=== PATIENT | male | born 1940 | race Caucasian/White ===

== ENCOUNTER 2017-12-15 05:57 | Inpatient (IN) | payer MEDICARE, OTHER ==
[2017-12-15 05:58] VITALS: BMI 26.6
--- NOTE | 2017-12-15 07:29 | ED PDOC ---
Arrival/HPI - General Chief Complaint: Shortness Of Breath Time Seen by Provider: 12/15/17 07:02 Historian: Patient - History of Present Illness Narrative History of Present Illness (Text): 12/15/17 07:18 A 76 year old male, whose past medical history includes GI bleeding, duodenal ulcer, Lung CA, presents to the emergency department complaining of 2-3 day duration shortness of breath. The patient reports that he feels difficultly with exhaling, stating that he feels like he does not exhale completely. He reports a productive cough with yellow phlegm. He states that he was recently discharged from the hospital. The patient notes that he is a past smoker. The patient denies fevers, chills, headache, dizziness, sore throat, chest pain, dyspnea on exertion, abdominal pain, nausea, vomiting, diarrhea, neck/back pain , urinary/bowel changes or any other complaint. Oncologist: Dr. Menjiavr GI: Dr. Lee Mobile Lounge Driver: Dr. Yi Time/Duration: Other (2-3 Days) Symptom Onset: Sudden Symptom Course: Unchanged Activities at Onset: Rest, Light Context: Home Past Medical History - Provider Review Nursing Documentation Reviewed: Yes - Infectious Disease Hx of Infectious Diseases: None - Tetanus Immunization Tetanus Immunization: Unknown - Past Medical History Past Medical History: No Previous - Pulmonary Hx Lung Cancer: Yes (on chemotherapy) - HEENT Hx HEENT Disorder: Yes (wears eyeglasses) - Hematological/Oncological Hx Blood Transfusions: Yes Hx Blood Transfusion Reaction: No - Musculoskeletal/Rheumatological Hx Falls: No - Psychiatric Hx Substance Use: No - Past Surgical History Past Surgical History: No Previous - Surgical History Hx Vascular Access Device: Yes (R chest port) - Anesthesia Hx Anesthesia: No Hx Anesthesia Reactions: No Hx Malignant Hyperthermia: No - Suicidal Assessment Feels Threatened In Home Enviroment: No Family/Social History - Physician Review Nursing Documentation Reviewed: Yes Family/Social History: No Known Family HX Smoking Status: Light Smoker < 10 Cigarettes Daily Hx Alcohol Use: No Hx Substance Use: No Hx Substance Use Treatment: No Allergies/Home Meds Allergies/Adverse Reactions: Allergies No Known Allergies Allergy (Verified 12/15/17 06:06) Home Medications: Home Meds Medication Instructions Recorded Confirmed Apixaban [Eliquis] 5 mg PO BID 12/15/17 12/15/17 Levalbuterol Tartrate [Xopenex Hfa] 15 gm IH PRN PRN MDD 2 puffs 12/15/17 Megestrol [Megace] 200 mg PO DAILY 12/15/17 12/15/17 Pantoprazole Sodium [Protonix] 40 mg PO DAILY 12/15/17 12/15/17 Polyethylene Glycol 3350 [Miralax] 17 gm PO PRN PRN 12/15/17 12/15/17 RX: Benzonatate [Tessalon Perle] 100 mg PO PRN PRN 12/15/17 12/15/17 RX: oxyCODONE [oxyCODONE Immediate 5 mg PO PRN PRN 12/15/17 12/15/17 Release Tab] Review of Systems - Physician Review All systems were reviewed & negative as marked: Yes - Review of Systems Constitutional: absent: Fevers Respiratory: SOB, Cough, Sputum (Yellow) Cardiovascular: absent: Chest Pain, CAMARENA Gastrointestinal: absent: Abdominal Pain, Stool Changes, Diarrhea, Nausea, Vomiting Genitourinary Male: absent: Urinary Output Changes Musculoskeletal: absent: Back Pain, Neck Pain Neurological: absent: Headache, Dizziness Physical Exam Vital Signs Reviewed: Yes Vital Signs Temp Pulse Resp BP Pulse Ox 12/15/17 10:52 70 19 100 12/15/17 10:48 98.0 F 71 18 114/78 100 12/15/17 09:27 69 18 99 12/15/17 06:14 97.8 F 72 18 113/69 99 Temperature: Afebrile Blood Pressure: Normal Pulse: Regular Respiratory Rate: Normal Appearance: Positive for: Non-Toxic, Comfortable, Cachectic Pain Distress: None Mental Status: Positive for: Alert and Oriented X 3 - Systems Exam Head: Present: Atraumatic, Normocephalic Pupils: Present: PERRL Extroacular Muscles: Present: EOMI Conjunctiva: Present: Normal Mouth: Present: Moist Mucous Membranes Neck: Present: Normal Range of Motion Respiratory/Chest: Present: Clear to Auscultation, Good Air Exchange, Other ( Healed sternotomy scar on chest. Labored breathing. ). No: Respiratory Distress , Accessory Muscle Use, Wheezes, Retracting, Rhonchi Cardiovascular: Present: Regular Rate and Rhythm, Normal S1, S2. No: Murmurs Abdomen: No: Tenderness, Distention, Peritoneal Signs Back: Present: Normal Inspection Upper Extremity: Present: Normal Inspection. No: Cyanosis, Edema Lower Extremity: Present: Normal Inspection. No: Edema Neurological: Present: GCS=15, CN II-XII Intact, Speech Normal Skin: Present: Warm, Dry, Normal Color. No: Rashes Psychiatric: Present: Alert, Oriented x 3, Normal Insight, Normal Concentration Medical Decision Making ED Course and Treatment: 12/15/17 07:30 Impression: A 76 year old male presents to the emergency department with a complaint of 2-3 day duration shortness of breath. Differential Diagnosis included but are not limited to: PNA Bronchitis PE Ulcer Constipation Plan: -- EKG -- Chest X-ray -- Labs -- Urinalysis -- Reassess and disposition Prior Visits: Notes and results from previous visits were reviewed. Progress Notes: 12/15/17 08:01 Patient states that he was admitted and recently discharged from the hospital. Upon review of chart, unable to find recent admission(last documented admission in 2014). Will interrogate patient once he returns back from X- Ray. 12/15/17 08:26: Labs reviewed. Patient noted to have leukocytosis to 14 with RUL infiltrate seen on Chest X-ray. Will obtain Chest/ Abdomen/ Pelvis CT. Antibiotics ordered. 12/15/17 09:24: Case discussed in detail with Dr. Christianson(internal medicine), covering for Dr. Triana who accepts patient to his service. Will admit patient for coming in with community acquired pneumonia onto Telemetry. - Lab Interpretations Lab Results: 12/15/17 07:20 12/15/17 07:20 Lab Results 12/15/17 07:20: Sodium 132, Potassium 4.5, Chloride 96 L, Carbon Dioxide 26, Anion Gap 15, BUN 19, Creatinine 0.7 L, Est GFR ( Amer) > 60, Est GFR ( Non-Af Amer) > 60, Random Glucose 118 H, Calcium 9.0, Total Bilirubin 0.3, AST 65 H, ALT 76 H, Alkaline Phosphatase 161 H, Total Protein 6.8, Albumin 3.3, Globulin 3.5, Albumin/Globulin Ratio 1.0 L 12/15/17 07:20: Troponin I < 0.01 D, NT-Pro-B Natriuret Pep 288 12/15/17 07:20: WBC 14.1 H D, RBC 4.10, Hgb 12.0 L, Hct 34.3 L, MCV 83.7, MCH 29.3, MCHC 35.0, RDW 15.2 H, Plt Count 469 H, MPV 9.6, Gran % 75.9 H, Lymph % ( Auto) 13.7 L, [place] % (Auto) 9.3 H, Eos % (Auto) 0.2 L, Baso % (Auto) 0.9, Gran # 10.68 H, Lymph # (Auto) 1.9, [place] # (Auto) 1.3 H, Eos # (Auto) 0.0, Baso # ( Auto) 0.13 I have reviewed the lab results: Yes - RAD Interpretation Narrative RAD Interpretations (Text): Chest X-ray Dictator : Rudy Yuen MD Report Date : 12/15/2017 09:12:03 IMPRESSION: Interstitial infiltrate in the right lung Radiology Orders: 12/15/17 07:14 CHEST TWO VIEWS (PA/LAT) [RAD] Stat - EKG Interpretation EKG Interpretation (Text): 12/15/17 10:41 EKG: Ordered, reviewed, and independently interpreted the EKG. Rate : 70 BPM Rhythm : NSR Interpretation : No T wave inversions. No ST elevations. Interpreted by ED Physician: Yes Type: 12 lead EKG - Medication Orders Current Medication Orders: Apixaban (Eliquis) 5 mg PO BID ZARI PRN Reason: Protocol Benzonatate (Tessalon Perles) 100 mg PO TID ZARI Cefepime HCl (Maxipime 2gm) 2 gm in 100 mls @ 100 mls/hr IVPB Q12 ZARI PRN Reason: Protocol Stop: 12/20/17 22:01 Vancomycin HCl (Vancomycin 1gm) 1 gm in 250 mls @ 167 mls/hr IVPB Q12H ZARI PRN Reason: Protocol Non-Formulary Medication (Megestrol [Megace]) 200 mg PO DAILY ZARI Oxycodone HCl (Oxycodone Immediate Release Tab) 5 mg PO Q6H PRN PRN Reason: Pain, severe (8-10) Pantoprazole Sodium (Protonix Ec Tab) 40 mg PO DAILY ZARI Polyethylene Glycol (Miralax) 17 gm PO DAILY PRN PRN Reason: Constipation Discontinued Medications Al Hydrox/Mg Hydrox/Simethicone (Maalox Plus 30 Ml) 30 ml PO STAT STA Stop: 12/15/17 10:50 Last Admin: 12/15/17 10:56 Dose: 30 ml Albuterol/Ipratropium (Duoneb 3 Mg/0.5 Mg (3 Ml) Ud) 3 ml IH STAT STA Stop: 12/15/17 07:41 Last Admin: 12/15/17 08:04 Dose: 3 ml Famotidine (Pepcid) 20 mg IVP STAT STA Stop: 12/15/17 10:50 Last Admin: 12/15/17 10:56 Dose: 20 mg IVP Administration Document 12/15/17 10:56 [email or web address] (Rec: 12/15/17 10:56 [email or web address] [id number]) Charges for Administration # of IVP Administrations 1 Ceftriaxone Sodium (Rocephin 1 Gram Ivpb) 1 gm in 100 mls @ 100 mls/hr IVPB DAILY ZARI PRN Reason: Protocol Ceftriaxone Sodium (Rocephin 1 Gram Ivpb) 1 gm in 100 mls @ 100 mls/hr IVPB STAT STA PRN Reason: Protocol Stop: 12/15/17 09:26 Last Admin: 12/15/17 08:44 Dose: 100 mls/hr eMAR Start Stop Document 12/15/17 08:44 [email or web address] (Rec: 12/15/17 08:44 [email or web address] [id number]) Intravenous Solution Start Date 12/15/17 Start Time 08:44 Azithromycin (Zithromax 500mg In Ns) 500 mg in 250 mls @ 167 mls/hr IVPB STAT STA PRN Reason: Protocol Stop: 12/15/17 09:58 Last Admin: 12/15/17 10:10 Dose: 167 mls/hr eMAR Start Stop Document 12/15/17 10:10 [email or web address] (Rec: 12/15/17 10:11 [email or web address] [id number]) Intravenous Solution Start Date 12/15/17 Start Time 10:11 Prednisone (Prednisone Tab) 40 mg PO STAT STA Stop: 12/15/17 07:42 Last Admin: 12/15/17 08:00 Dose: 40 mg - Scribe Statement The provider has reviewed the documentation as recorded by the Helen Reeder Provider Scribe Attestation: All medical record entries made by the Scribe were at my direction and personally dictated by me. I have reviewed the chart and agree that the record accurately reflects my personal performance of the history, physical exam, medical decision making, and the department course for this patient. I have also personally directed, reviewed, and agree with the discharge instructions and disposition. Disposition/Present on Arrival - Present on Arrival Any Indicators Present on Arrival: No History of DVT/PE: No History of Uncontrolled Diabetes: No Urinary Catheter: No History of Decub. Ulcer: No History Surgical Site Infection Following: None - Disposition Have Diagnosis and Disposition been Completed?: Yes Diagnosis: Pneumonia Disposition: HOSPITALIZED Disposition Time: 08:35 Patient Plan: Admission Condition: STABLE
[2017-12-15 07:30] LABS: BASO # 0.13 K/mm3 (0.0-2.0); BASO % 0.9 % (0.0-3.0); EOS % 0.2 % (1.5-5.0); GRAN # 10.68 (1.4-6.5); GRAN % 75.9 % (50.0-68.0); LYMPH # 1.9 (1.2-3.4); LYMPH % 13.7 % (22.0-35.0); MEAN CELL VOLUME 83.7 fl (80.0-105.0); MEAN CORPUSCULAR HEMOGLOBIN 29.3 pg (25.0-35.0); MEAN PLATELET VOLUME 9.6 fl (7.0-11.0); MONO # 1.3 (0.1-0.6); MONO % 9.3 % (1.0-6.0); RBC 4.1 10^6/uL (3.5-6.1); RED CELL DISTRIBUTION WIDTH 15.2 % (11.5-14.5); WHITE BLOOD COUNT 14.1 10^3/ul (4.5-11.0)
[2017-12-15] MEDS ORDERED: Albuterol-Ipratrop 3 mg / 0.5 (3 ml) UD IH STA (07:40)
[2017-12-15 07:51] LABS: B-TYPE NATRIURETIC PEPTIDE 288 pg/mL (0-450); TROPONIN I < 0.01 ng/mL
[2017-12-15] MEDS ORDERED: cefTRIAXone 1 gm 1 GM/100 ML BAG IVPB STA (08:28)
[2017-12-15] MEDS ORDERED: Azithromycin 500MG/NS 250ml 500 MG/250 ML BAG IVPB STA (08:29)
--- NOTE | 2017-12-15 09:13 | RAD ---
Date of service: 12/15/2017 HISTORY: sob COMPARISON: 05/17/2014 TECHNIQUE: Chest PA and lateral FINDINGS: LUNGS: Interstitial infiltrate in the right lung PLEURA: No significant pleural effusion identified. No pneumothorax apparent. CARDIOVASCULAR: Normal. OSSEOUS STRUCTURES: No significant abnormalities. VISUALIZED UPPER ABDOMEN: Normal. OTHER FINDINGS: Right-sided Port-A-Cath IMPRESSION: Interstitial infiltrate in the right lung
[2017-12-15 09:57] LABS: ALBUMIN 3.3 g/dL (3.0-4.8); ALT/SGPT 76 U/L (7-56); AST/SGOT 65 U/L (17-59); BLOOD UREA NITROGEN 19 mg/dL (7-21); GFR NON-AFRICAN AMERICAN > 60
[2017-12-15] MEDS ORDERED: Azithromycin 500MG/NS 250ml 500 MG/250 ML BAG IVPB SCH (10:00)
[2017-12-15] MEDS ORDERED: cefTRIAXone 1 gm 1 GM/100 ML BAG IVPB SCH (10:00)
[2017-12-15 10:10] LABS: URINE BILIRUBIN NEGATIVE (NEGATIVE); URINE BLOOD NEGATIVE (NEGATIVE); URINE GLUCOSE (UA) NEGATIVE (NEGATIVE); URINE LEUKOCYTE ESTERASE NEGATIVE Leu/uL (NEGATIVE); URINE PROTEIN NEGATIVE mg/dL (<30 mg/dL); URINE UROBILINOGEN 0.2 E.U./dL (<1 E.U./dL)
[2017-12-15 10:11] LABS: URINE APPEARANCE CLEAR (CLEAR); URINE COLOR YELLOW (YELLOW)
--- NOTE | 2017-12-15 10:35 | CP.PCM.HP ---
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 Patient states he has been bringing up yellow sputum. Patient admits to difficulty breathing intermittently. Patient also states that he has had intermittent abdominal pain. Patient has recently undergone chemotherapy and radiation with Dr. Bullard and Dr. Lee. The patient was recently in the hospital for post-obstructive pneumonia. Patient currently denies chest pain, nausea, vomiting, diarrhea, fever, chills. PMH: GI ulcer, Small Cell Lung CA, A-fib PSH: CT Guided Biopsy FH: Heart disease Social Hx: Former smoker, denies alcohol or illicit drug use Home meds: none Allergies: NKDA Present on Admission - Present on Admission Any Indicators Present on Admission: No Review of Systems - Review of Systems Review of Systems: 12 point ROS as per HPI, otherwise negative Past Patient History - Infectious Disease Hx of Infectious Diseases: None - Tetanus Immunizations Tetanus Immunization: Unknown - Past Social History Smoking Status: Light Smoker < 10 Cigarettes Daily - PULMONARY Hx Lung Cancer: Yes (on chemotherapy) - HEENT Hx HEENT Problems: Yes (wears eyeglasses) - HEMATOLOGICAL/ONCOLOGICAL Hx Blood Transfusions: Yes Hx Blood Transfusion Reaction: No - MUSCULOSKELETAL/RHEUMATOLOGICAL Hx Falls: No - PSYCHIATRIC Hx Substance Use: No - SURGICAL HISTORY Hx Vascular Access Device: Yes (R chest port) - ANESTHESIA Hx Anesthesia: No Hx Anesthesia Reactions: No Hx Malignant Hyperthermia: No Meds Allergies/Adverse Reactions: Allergies Allergy/AdvReac Type Severity Reaction Status Date / Time No Known Allergies Allergy Verified 12/15/17 06:06 Physical Exam - Constitutional Appears: Non-toxic, No Acute Distress - Head Exam Head Exam: ATRAUMATIC, NORMAL INSPECTION, NORMOCEPHALIC - Eye Exam Eye Exam: EOMI, Normal appearance - ENT Exam ENT Exam: Mucous Membranes Dry - Respiratory Exam Respiratory Exam: Decreased Breath Sounds (On right side), NORMAL BREATHING PATTERN. absent: Rales, Rhonchi, Wheezes - Cardiovascular Exam Cardiovascular Exam: RRR, +S1, +S2 - GI/Abdominal Exam GI & Abdominal Exam: Normal Bowel Sounds, Soft. absent: Tenderness - Extremities Exam Extremities exam: Positive for: normal inspection. Negative for: calf tenderness, pedal edema - Neurological Exam Neurological exam: Alert, CN II-XII Intact, Oriented x3 - Psychiatric Exam Psychiatric exam: Normal Affect, Normal Mood - Skin Skin Exam: Intact, Normal Color, Warm Results - Vital Signs Recent Vital Signs: Last Vital Signs Temp 97.8 F 12/15/17 06:14 Pulse 69 12/15/17 09:27 Resp 18 12/15/17 09:27 BP 113/69 12/15/17 06:14 Pulse Ox 99 12/15/17 09:27 - Labs Result Diagrams: 12/15/17 07:20 12/15/17 07:20 Labs: Laboratory Results - last 24 hr 12/15/17 12/15/17 12/15/17 07:20 07:20 07:20 WBC 14.1 H D RBC 4.10 Hgb 12.0 L Hct 34.3 L MCV 83.7 MCH 29.3 MCHC 35.0 RDW 15.2 H Plt Count 469 H MPV 9.6 Gran % 75.9 H Lymph % (Auto) 13.7 L [place] % (Auto) 9.3 H Eos % (Auto) 0.2 L Baso % (Auto) 0.9 Gran # 10.68 H Lymph # (Auto) 1.9 [place] # (Auto) 1.3 H Eos # (Auto) 0.0 Baso # (Auto) 0.13 Sodium 132 Potassium 4.5 Chloride 96 L Carbon Dioxide 26 Anion Gap 15 BUN 19 Creatinine 0.7 L Est GFR ( Amer) > 60 Est GFR (Non-Af Amer) > 60 Random Glucose 118 H Calcium 9.0 Total Bilirubin 0.3 AST 65 H ALT 76 H Alkaline Phosphatase 161 H Troponin I < 0.01 D NT-Pro-B Natriuret Pep 288 Total Protein 6.8 Albumin 3.3 Globulin 3.5 Albumin/Globulin Ratio 1.0 L Urine Color Urine Appearance Urine pH Ur Specific [place] Urine Protein Urine Glucose (UA) Urine Ketones Urine Blood Urine Nitrate Urine Bilirubin Urine Urobilinogen Ur Leukocyte Esterase 12/15/17 09:50 WBC RBC Hgb Hct MCV MCH MCHC RDW Plt Count MPV Gran % Lymph % (Auto) [place] % (Auto) Eos % (Auto) Baso % (Auto) Gran # Lymph # (Auto) [place] # (Auto) Eos # (Auto) Baso # (Auto) Sodium Potassium Chloride Carbon Dioxide Anion Gap BUN Creatinine Est GFR ( Amer) Est GFR (Non-Af Amer) Random Glucose Calcium Total Bilirubin AST ALT Alkaline Phosphatase Troponin I NT-Pro-B Natriuret Pep Total Protein Albumin Globulin Albumin/Globulin Ratio Urine Color Yellow Urine Appearance Clear Urine pH 8.0 Ur Specific [place] 1.010 Urine Protein Negative Urine Glucose (UA) Negative Urine Ketones Negative Urine Blood Negative Urine Nitrate Negative Urine Bilirubin Negative Urine Urobilinogen 0.2 Ur Leukocyte Esterase Negative Assessment & Plan - Assessment and Plan (Free Text) Plan: 1. HCAP 2. Small cell lung cancer stage IV 3. A-fib 4. Transaminitis Patient will be admitted to the hospital for HCAP. Patient was recently admitted for similar symptoms recently. Patient received antibiotics in the ED. Will order procalcitonin and will start patient on empiric antibiotics. Will obtain chest, abdomen, pelvis CT. Patient with history of a-fib and will continue Eliquis. We will consult ID, Pulmonology, and Oncology for further recommendations. Will continue to monitor patient closely and continue current medical regimen. Diane, PGY-3
--- NOTE | 2017-12-15 10:41 | CT ---
Date of service: 12/15/2017 PROCEDURE: CT Chest, Abdomen and Pelvis without intravenous contrast HISTORY: Pneumonia, Hx of lung CA COMPARISON: None available. TECHNIQUE: Radiation dose: Total exam DLP = mGy-cm. This CT exam was performed using one or more of the following dose reduction techniques: Automated exposure control, adjustment of the mA and/or kV according to patient size, and/or use of iterative reconstruction technique. FINDINGS: CT CHEST WITHOUT CONTRAST: LUNGS: Severe centrilobular emphysema with a large right mid lung zone infiltrate involving the lateral segment of right middle lobe and the right lower lobe with air bronchograms. MEDIASTINUM: Right paratracheal, subcarinal and right hilar lymphadenopathy. Pacemaker and leads in place. LYMPH NODES: Unremarkable. PLEURA: Unremarkable. No pneumothorax. No pleural fluid. BONES: Unremarkable. OTHER FINDINGS: None. CT ABDOMEN AND PELVIS: LIVER: Unremarkable. No gross lesion or ductal dilatation. GALLBLADDER AND BILE DUCTS: Cholelithiasis. . PANCREAS: Unremarkable. No gross lesion or ductal dilatation. SPLEEN: Unremarkable. ADRENALS: Unremarkable. No mass. KIDNEYS AND URETERS: Bilateral renal cysts with bilateral nephrolithiasis. VASCULATURE: Unremarkable. No aortic aneurysm. BOWEL: Unremarkable. No obstruction. No gross mural thickening. APPENDIX: Normal appendix. PERITONEUM: Unremarkable. No free fluid. No free air. LYMPH NODES: Unremarkable. No enlarged lymph nodes. BLADDER: Unremarkable. REPRODUCTIVE: Unremarkable. BONES: Numerous sclerotic lesions cyst with metastatic disease. Moderate L4 compression fracture. OTHER FINDINGS: Left inguinal hernia containing colonic loops. No obstruction. IMPRESSION: Confluent consolidation/ infiltrate in the right midlung zone involving the right middle lobe and right lower lobe with extensive mediastinal lymphadenopathy. Skeletal metastases.
[2017-12-15] MEDS ORDERED: Alum-Mag Hydrox-Simethicone Susp (30 mL) PO STA (10:49)
[2017-12-15] MEDS ORDERED: POLYETHYLENE GLYCOL 3350 17 GM/Dose PACKET PO PRN (11:01)
[2017-12-15] MEDS ORDERED: Pantoprazole 40 mg EC Tab PO SCH (11:15)
--- NOTE | 2017-12-15 11:52 | CARD ---
APPROVED REPORT Date of service: 12/15/2017 EKG Measurement Heart [id number] <Conclusion> Normal sinus rhythm Normal ECG
[2017-12-15] MEDS: Vancomycin 1gm in NS 250ml 1 GM/250 ML BAG IVPB SCH ×2 (12:41→22:39)
[2017-12-15] MEDS ORDERED: Cefepime 1gm in NS 100ml 1 GM/100 ML BAG IVPB SCH (22:00)
[2017-12-15] MEDS ORDERED: Cefepime IV 2 gm in NS 2 GM/100 ML BAG IVPB SCH (22:00)
[2017-12-15] MEDS: guaiFENesin DM 100 mg-10 mg/5 ml UD PO PRN (22:37)
[2017-12-15] MEDS: oxyCODONE 5 mg Immediate Release Tab PO PRN (22:37)
[2017-12-15] MEDS: MethylPREDNISolone 40 mg Vial IVP SCH (22:39)
[2017-12-15] MEDS: Cefepime 1gm in NS 100ml 1 GM/100 ML BAG IVPB SCH (22:41)
--- NOTE | 2017-12-15 22:42 | CON ---
Copied To: Erasmo Briggs MD Attending MD: Erasmo Briggs MD DATE: 12/15/2017 SUBJECTIVE: It should be noted that the patient has 2 separate ID numbers as the patient was recently discharged from [facility], [place] 2 weeks prior with the information not appearing from his prior admission, which was for over 2 weeks' time. His birthday being 1940, he has a medical record number of [id number] from 11/23/2017 discharge and a medical record number now of [id number] from today's admission date of 12/15/2017. One is referred to the select visit's rhodes on the computer screen and to go back to his visits from 11/23/2017 to see his significant hospitalization from 11/08/2017 through his discharge at that time. CHIEF COMPLAINT: Shortness of breath. HISTORY OF PRESENT ILLNESS: The patient is a 76-year-old male, now admitted by the emergency room for increasing shortness of breath for the past 2 days' time as the patient was seen here in the office 2 days prior and was in no acute distress with significant improvement of his peripheral edema with his cough also gone with weakness as his only complaint that day. At present, the patient is now seen resting on the telemetry floor to be transferred to remote telemetry being seen with Dr. Yi, pulmonology with the patient reporting that his shortness of breath is his main complaint. On testing, it appears the patient has a newly-developed pneumonia, which will be treated as indicated. PAST MEDICAL HISTORY: The patient's past medical history is significant for stage IV metastatic lung cancer, small cell with lytic lesions at T7 of the vertebral body, liver metastasis, extensive mediastinal hilar adenopathy, status post 10 radiation treatments with chemotherapy also being given. Now, scheduled for next week chemotherapy to continue as per Dr. Bullard's recommendations. 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 The patient also has episode of atrial fibrillation, which he was treated with sotalol; history of pneumothorax; COPD; cachexia of malignancy; recent insomnia; recent pedal edema; gastric ulcer; gastritis; neutropenia; cough, which is now improved; failure to thrive, on Megace with Eliquis started for his cardiac dysrhythmia. ALLERGIES: NO KNOWN ALLERGIES. MEDICATIONS: The patient's medications at this point include sotalol, DuoNeb, Eliquis. He was given cefepime, which continues; Megace; MiraLax; oxycodone; prednisone orally, which was discontinued in favor of Solu-Medrol 20 IV every 12; Protonix; Robitussin DM; Rocephin one dose; Tessalon Perles; vancomycin and azithromycin one dose. We will ask for Dr. Guerra, Infectious Disease sr technical sales consultant to chose antibiotics as these antibiotics were given in the emergency room prior to the patient being evaluated. FAMILY HISTORY AND SOCIAL HISTORY: Former smoker, quit 5 years ago. Occasional beer once a week. Otherwise, noncontributory. and son at the bedside. REVIEW OF SYSTEMS: Twelve-point review of systems was done, which was negative to questioning except for items mentioned in the history of present illness. OBJECTIVE PHYSICAL EXAMINATION: VITAL SIGNS: Temperature 98, pulse 69, respirations 18, blood pressure 114/58, pulse ox 100%. GENERAL: He appears cachectic. HEENT: Tongue is dry. NECK: Supple. HEART: Regular rate. Occasional ectopic beat. LUNGS: Scattered rhonchi with decreased breath sounds on the right. ABDOMEN: Scaphoid, soft, nontender. EXTREMITIES: Faint +1 edema of the feet. NEUROLOGIC: Awake and alert. SKIN: Warm and dry. LABORATORY DATA: The patient's labs were done. White blood cell count of 14.1, hemoglobin 12, hematocrit 34.3, platelet count 469,000. The chem metabolic panel showing an AST of 65, ALT of 76, alk phos 161, otherwise normal chem metabolic panel. Urinalysis was negative for sugar, blood and protein. The patient did have a chest x-ray, which was read as interstitial infiltrate in the right lung. A CAT scan of the chest was also done earlier today. It was read as confluent consolidation and infiltrate of right mid lung zone involving the right mid lobe and right lower lobe with extensive mediastinal lymphadenopathy, skeletal metastases. EKG was done earlier today, it was read as normal sinus rhythm. Normal EKG. However, the patient did have an episode of rapid atrial fibrillation in the past. 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 PLAN: Plan for this patient after conversation with Dr. Bullard is to continue his present medical regimen. We will ask for consult with Dr. Guerra, Infectious Disease; Dr. Yi of Pulmonary as per Dr. Christianson, his attending doctor covering for Dr. Triana. Antibiotics will be chosen by Dr. Guerra. We will check an echocardiogram and give the patient a regular soft diet as he is on Megace to stimulate his appetite. We will monitor clinically and with labs. Prognosis for this patient is guarded with planned resumption of his chemotherapy in 4 days' time by the outpatient clinic in [facility] [place]. This is a complex patient with a comprehensive medically necessary and appropriate visit carried out in excess of [address] Yi seen at the bedside with the patient, also with family members, case discussed and nursing with the patient to be transferred to the remote telemetry on the Oncology floor as he appears to be in normal sinus rhythm at this point. Erasmo Briggs MD
[2017-12-15] MEDS ORDERED: Albuterol-Ipratrop 3 mg / 0.5 (3 ml) UD IH ONE (22:47)
--- NOTE | 2017-12-15 23:55 | CON ---
Copied To: Chon Guerra MD Attending MD: Chon Guerra MD DATE: 12/15/2017 LOCATION: The patient is admitted in room 365, bed 2. CHIEF COMPLAINT: Shortness of breath and cough times several days. HISTORY OF PRESENT ILLNESS: This is a 76-year-old male with small-cell lung cancer, status post radiation and chemotherapy, atrial fibrillation, rapid ventricular response, GI ulcer, long-time smoker who recently had postobstructive pneumonitis with neutropenic, he had a CAT scan biopsy of the lung, which developed a pneumothorax requiring chest tube, now returns with shortness of breath, cough, low grade fevers. REVIEW OF SYSTEMS: A 12-point review of systems is reported. No nausea or vomiting. No chest pain at this time. No headaches or blurred vision, abdominal pain, diarrhea. PAST MEDICAL HISTORY: Significant for small-cell lung cancer, status post chemotherapy, radiation; atrial fibrillation; rapid ventricular response; GI ulcer; long-time smoker and postobstructive pneumonitis. The patient had a recent prolonged neutropenia. PAST SURGICAL HISTORY: Significant for CAT scan guided biopsy and resulted pneumothorax and chest tube placement. ALLERGIES: THE PATIENT HAS NO KNOWN ALLERGIES. MEDICATIONS: At home are noted; oxycodone, Protonix, inhaler, Eliquis. PHYSICAL EXAMINATION: GENERAL: He is in bed, appearing chronically ill, debilitated, end stage, weak. VITAL SIGNS: Temperature of 98, blood pressure is 114/50, respiratory rate of 18, heart rate of 76 with oxygen saturation is noted to be at 100% with nasal cannula. The patient's BMI is 20. HEENT: Temporal wasting. NECK: Supple. LUNGS: Have decreased breath sounds. HEART: Normal S1, S2. ABDOMEN: Soft, nontender. LABORATORY EXAMINATION: Reveals a white count of 14,100, hemoglobin of 12, platelets of 469. BUN of 19, creatinine of 0.9. AST, ALT and alk phos is noted. Urinalysis is noted and microbiology is reviewed. The patient had a CAT scan of the chest and abdomen, also chest x-ray. Chest x-ray is reported negative. CAT scan of the chest and the abdomen is reviewed and appears to have consolidation of right mid zone with significant extensive mediastinal lymphadenopathy with bone metastases and skeletal metastases. ASSESSMENT AND PLAN: A 76-year-old male with small-cell lung cancer with bone metastases, atrial fibrillation and postobstructive pneumonitis, neutropenia, now presenting with right-sided healthcare-associated pneumonia with leukocytosis. We will treat the patient with vancomycin and cefepime. Pending blood cultures, urine cultures, sputum cultures, nasal MRSA screen, vancomycin trough level and urine Legionella antigen, procalcitonin. We will discontinue ceftriaxone, discontinue Zithromax. Treat with vancomycin and cefepime. We will make further recommendations upon availability of initial results. Chon Guerra MD [facility] # [id number]
--- NOTE | 2017-12-16 01:04 | CON ---
Copied To: Aura Yi MD Attending MD: Aura Yi MD DATE: 12/15/2017 PULMONARY CONSULT REFERRING PHYSICIAN: Erasmo Briggs MD REASON FOR CONSULT: Chronic obstructive lung disease, lung cancer. HISTORY OF PRESENT ILLNESS: This is a 76-year-old gentleman, well known to me from previous admission, recently diagnosed with small cell lung cancer, which is extensive disease; history of paroxysmal atrial fibrillation; chronic obstructive lung disease; history of pneumothorax; also had history of hemoptysis; gastric ulcer in the past; recently received radiation and chemotherapy, admitted because of increased shortness of breath, cough. No nausea, no vomiting, diarrhea, leg pain or leg swelling. PAST MEDICAL HISTORY: As per history of present illness. ALLERGIES: NONE KNOWN. SOCIAL HISTORY: Former smoker. Denied any alcohol use. FAMILY HISTORY: No significant pulmonary disease. There is positive history of heart disease. MEDICATIONS: He is on sotalol 40 mg twice a day, Eliquis 5 mg twice a day, cefepime 1 g IV every 8 hours, Megace 200 mg daily, MiraLax 17 g daily, oxycodone immediate release 5 mg every 6 hours p.r.n., Protonix 20 mg daily, Robitussin 5 mL every 4 hours p.r.n., Solu-Medrol 20 mg every 12 hours, Tessalon Perles 100 mg three times a day, vancomycin 1 g IV every 12 hours. REVIEW OF SYSTEMS: No headache, no rhinitis. Has some cough, shortness of breath. No nausea, no vomiting, no diarrhea, leg pain or leg swelling. PHYSICAL EXAMINATION: GENERAL: Mild distress secondary to cough and shortness of breath. VITAL SIGNS: Temperature is 98, heart rate is 82, respiratory rate is 18, blood pressure 100/62, pulse ox 95% 2 liters nasal cannula. HEENT: Moist mucous membranes. Small oral cavity. Crowded airway. NECK: Supple. No JVD. LUNGS: Scattered rhonchi. Not much wheezing. HEART: S1 and S2. ABDOMEN: Soft, nontender, no organomegaly. EXTREMITIES: There is no edema. NEUROLOGIC: Awake, alert, follows simple commands. LABORATORY DATA: Shows hemoglobin 12, hematocrit 34.3, WBC 14,000, platelet count is 469. Sodium 132, potassium is 4.5, chloride 96, bicarbonate 26, BUN 19, creatinine 0.7. Glucose 118, calcium is 9, total bili 0.3, AST 65, ALT 76, alk phos is 161. Albumin is 3.3. Urinalysis is unremarkable. Microbiology: No data is available yet. Has a CT of the chest, abdomen and pelvis done in the ER on admission, which shows confluent consolidation/infiltrate in the right mid lung zone involving the right middle lobe and right lower lobe with extensive mediastinal adenopathy, also there is skeletal metastatic disease involving, also L4 compression fracture. There is infiltrate with right middle and lower lobe with air bronchogram. There is severe central lobular emphysema. IMPRESSION AND PLAN: Chronic obstructive lung disease, extensive disease of small cell lung cancer with metastatic disease, history of paroxysmal atrial fibrillation, has a pulmonary infiltrate. Case discussed with PMD in detail. Solu-Medrol added along with antibiotics, inhaled bronchodilator. Gastric and deep vein thrombosis prophylaxis. Follow up labs the morning. Thank you and we will follow with. Aura Yi MD
[2017-12-16] MEDS: Albuterol-Ipratrop 3 mg / 0.5 (3 ml) UD IH PRN ×2 (01:14→20:50)
[2017-12-16] MEDS: oxyCODONE 5 mg Immediate Release Tab PO PRN (06:21)
[2017-12-16] MEDS: Pantoprazole 20 mg EC Tab PO SCH (06:21)
[2017-12-16 06:49] LABS: HEMOGLOBIN 11.9 g/dL (14.0-18.0); MEAN CELL VOLUME 83.3 fl (80.0-105.0); MEAN CORPUSCULAR HEMOGLOBIN 28.7 pg (25.0-35.0); MEAN CORPUSCULAR HGB CONC 34.5 g/dl (31.0-37.0); RBC 4.14 10^6/uL (3.5-6.1); WHITE BLOOD COUNT 11.7 10^3/ul (4.5-11.0)
[2017-12-16 07:06] VITALS: RESP 20
[2017-12-16 07:11] LABS: ALBUMIN 3.5 g/dL (3.0-4.8); ALT/SGPT 75 U/L (7-56); AST/SGOT 44 U/L (17-59); BLOOD UREA NITROGEN 15 mg/dL (7-21); GFR NON-AFRICAN AMERICAN > 60
[2017-12-16 07:58] LABS: TROPONIN I < 0.01 ng/mL
[2017-12-16] MEDS ORDERED: cefTRIAXone 1 gm 1 GM/100 ML BAG IVPB SCH (10:00)
[2017-12-16] MEDS ORDERED: MEGESTROL PO SCH ×2 (10:00)
[2017-12-16] MEDS ORDERED: Azithromycin 500MG/NS 250ml 500 MG/250 ML BAG IVPB SCH (10:00)
[2017-12-16 11:21] LABS: TROPONIN I 0.01 ng/mL
[2017-12-16] MEDS: Megestrol Acetate 40 mg/ml Cup PO SCH (12:05)
[2017-12-16] MEDS: Cefepime 1gm in NS 100ml 1 GM/100 ML BAG IVPB SCH ×2 (12:08→21:01)
[2017-12-16] MEDS: Azithromycin 500MG/NS 250ml 500 MG/250 ML BAG IVPB SCH (12:09)
[2017-12-16] MEDS: Vancomycin 1gm in NS 250ml 1 GM/250 ML BAG IVPB SCH ×2 (12:10→22:52)
[2017-12-16] MEDS: MethylPREDNISolone 40 mg Vial IVP SCH ×2 (12:31→21:01)
--- NOTE | 2017-12-16 13:37 | PN ---
Copied To: Erasmo Briggs MD Attending MD: Erasmo Briggs MD DATE: 12/16/2017 This is [facility]'s hospital visit on the medical floor. For Dr. Bullard. SUBJECTIVE: The patient is a 76-year-old male, admitted by the emergency room with increasing shortness of breath with the patient noted to have pneumonia on his CT scan of the chest along with exacerbation of COPD. He also suffers from extensive small cell lung cancer with metastatic disease. He had a history of paroxysmal atrial fib in the past. At present, he is resting comfortably. He is reporting that he slept well last night. He is sitting up in bed. OBJECTIVE PHYSICAL EXAMINATION: VITAL SIGNS: Temperature 97.8, pulse 66, respirations 20, blood pressure 110/60, pulse ox of 100%. HEENT: Poor dentition. NECK: Supple. HEART: Regular rate. Occasional ectopic beat. LUNGS: Scattered rhonchi. ABDOMEN: Soft, nontender. EXTREMITIES: No edema. SKIN: Warm and dry. NEUROLOGIC: Awake, alert. LABORATORY DATA: The patient's labs were done. White blood cell count of 11.7, hemoglobin 11.9, hematocrit 34.5, platelet count of 447,000 with a chem metabolic panel showing a creatinine of 0.6 with a normal BUN of 15, magnesium of 2.3, ALT of 75, alk phos of 176, TSH is 0.8. Urine culture and blood cultures were negative at 24 hours. The patient had an EKG and echocardiogram done earlier today. We will wait the report. 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 PLAN: The plan for this patient is to continue his present medical regimen after conversation with Dr. Yi and Dr. Bullard with the patient to have his chemotherapy resumed on Monday after the Holiday, which is in 3 day's time should he be medically stable. This is a complex patient with a comprehensive medically necessary and appropriate visit carried out in excess of 30 minutes with conversations held as above with the patient's other testing reviewed as above. Erasmo Briggs MD [facility] # [id number]
--- NOTE | 2017-12-16 17:15 | PN ---
Copied To: Aura Yi MD Attending MD: Aura Yi MD DATE: 12/16/2017 PULMONARY PROGRESS NOTE REFERRING PHYSICIAN: Yesenia Christianson MD SUBJECTIVE: He is lying in the bed, head at 45 degrees, sleepy, arousable. Night was unremarkable. Breathing is better. Cough is better. No nausea, no dysuria. No leg pain or leg swelling. OBJECTIVE: GENERAL: In no acute distress. VITAL SIGNS: Temperature is 98, heart rate 66, respiratory rate is 20, blood pressure 110/60, pulse 100% on 2 L nasal cannula. HEENT: Moist mucous membranes. Crowded airway. NECK: Supple. No JVD. LUNGS: Scattered rhonchi. HEART: S1 and S2. ABDOMEN: Soft, nontender. No organomegaly. EXTREMITIES: No edema. NEUROLOGIC: Awake, alert, and follows simple command. MEDICATIONS: He is on Ambien 5 mg at bedtime p.r.n., sotalol 40 mg twice a day, Cardizem 30 mg three times a day, DuoNeb every 4 hours p.r.n., Eliquis 5 mg twice a day, cefepime 1 g IV every 12 hours, Megace 200 mg daily, MiraLax 17 g daily, OxyContin immediate release 5 mg every 6 hours p.r.n., Protonix 40 mg daily, Robitussin DM 5 mL every 4 hours p.r.n., Solu-Medrol 20 mg every 12 hours, Tessalon Perles three times a day, vancomycin 1 g IV every 12 hours, Zithromax 500 mg daily. LABORATORY DATA: Shows hemoglobin 11.9, hematocrit 34.5, WBC 11.7, and platelets 447. Sodium 134, potassium 4.9, chloride 100, bicarbonate 24. BUN 15, creatinine 0.6. Glucose 180. Calcium is 9, magnesium 2.3 , AST 44, ALT 75, alk phos is 176. Troponin less than 0.01. Procalcitonin is 0.46. TSH 0.87. Microbiology: Blood culture and urine culture, there is no growth. IMPRESSION AND PLAN: Chronic obstructive lung disease, has a small cell lung cancer which is extensive disease with metastatic disease, paroxysmal atrial fibrillation, pulmonary infiltrate. Procalcitonin negative. ProBNP is unremarkable. Probably have exacerbation of chronic lung disease. We will continue steroids, inhaled bronchodilator, anticoagulation, gastric prophylaxis. Antibiotics as per Infectious Diseases. Out of bed to chair. Fall precaution. Thank you and we will follow with you. Aura Yi MD
--- NOTE | 2017-12-16 23:07 | PN ---
Copied To: Chon Guerra MD Attending MD: Chon Guerra MD DATE: 12/16/2017 SUBJECTIVE: Patient is in bed, in no acute distress, nontoxic, was seen earlier today. PHYSICAL EXAMINATION: VITAL SIGNS: Temperature is 98, blood pressure is 108/40, respiratory rate is 16. HEENT: Unremarkable. NECK: Supple. LUNGS: Have decreased breath sounds. HEART: Normal S1, S2. ABDOMEN: Soft. LABORATORY EXAMINATION: [place] [address], hemoglobin of 11, BUN of 15, creatinine of 0.5. Urinalysis is noted. Microbiology is noted. ASSESSMENT AND PLAN: A 76-year-old male who is a longtime smoker with small-cell lung cancer with bone metastases, atrial fibrillation, postobstructive pneumonitis, neutropenia, presenting with a right-sided healthcare-associated pneumonia and leukocytosis, on vancomycin and cefepime day #2 pending lopez cultures, which thus far are negative. Urine negative blood. Procalcitonin is 0.46. short course of antibiotics. Chon Guerra MD
[2017-12-17] MEDS: oxyCODONE 5 mg Immediate Release Tab PO PRN (02:16)
--- NOTE | 2017-12-17 05:13 | CARD ---
APPROVED REPORT Date of service: 12/16/2017 EKG Measurement Heart [id number] <Conclusion> Atrial fibrillation with rapid ventricular response Abnormal ECG
[2017-12-17] MEDS: Pantoprazole 20 mg EC Tab PO SCH (05:40)
--- NOTE | 2017-12-17 05:44 | CARD ---
APPROVED REPORT Date of service: 12/16/2017 EXAM: Two-dimensional and M-mode echocardiogram with Doppler and color Doppler. INDICATION BASELINE ECHO-PT RECEIVING CHEMORADIATION 2D DIMENSIONS IVSd1.2 (0.7-1.1cm)LVDd4.2 (3.9-5.9cm) PWd1.4 (0.7-1.1cm)LVDs3.0 (2.5-4.0cm) FS (%) 28.9 %LVEF (%)56.0 (>50%) M-Mode DIMENSIONS Left Atrium (MM)4.60 (2.5-4.0cm)Aortic Root3.20 (2.2-3.7cm) Aortic Cusp Exc.2.40 (1.5-2.0cm) Aortic Valve AoV Peak Hwyhpemg283.0cm/[place] Peak GR.15mmHg Mitral Valve MV E Cyruclks38.2cm/sMV A Jxbzxorg60.1cm/sE/A ratio0.8 TDI Lateral E' Peak V7.90cm/sMedial E' Peak V5.75cm/sE/Lateral E'7.5 E/Medial E'10.3 Tricuspid Valve TR Peak Eilbizdd639bw/sRAP [id number] Peak Gr.17mmHg [id number] LEFT VENTRICLE The left ventricle is normal size. There is mild concentric left ventricular hypertrophy. The left ventricular function is normal. The left ventricular ejection fraction is within the normal range. There is normal LV segmental wall motion. RIGHT VENTRICLE The right ventricle is normal size. The right ventricular systolic function is normal. ATRIA The left atrium size is normal. The right atrium size is normal. The interatrial septum is intact with no evidence for an atrial septal defect. AORTIC VALVE The aortic valve is normal in structure. No aortic regurgitation is present. There is no aortic valvular stenosis. MITRAL VALVE The mitral valve is normal in structure. There is no mitral valve regurgitation noted. TRICUSPID VALVE The tricuspid valve is normal in structure. There is mild tricuspid regurgitation. PULMONIC VALVE The pulmonary valve is normal in structure. GREAT VESSELS The aortic root is normal in size. The IVC is normal in size and collapses >50% with inspiration. PERICARDIAL EFFUSION There is no pleural effusion. There is no pericardial effusion. <Conclusion> Normal chamber size. Normal LV systolic function. Mild concentric LVH. Mild TR.
[2017-12-17 07:22] LABS: HEMOGLOBIN 11.1 g/dL (14.0-18.0); MEAN CORPUSCULAR HEMOGLOBIN 28.2 pg (25.0-35.0); MEAN CORPUSCULAR HGB CONC 33.6 g/dl (31.0-37.0); MEAN PLATELET VOLUME 9.2 fl (7.0-11.0); RBC 3.93 10^6/uL (3.5-6.1); RED CELL DISTRIBUTION WIDTH 15.1 % (11.5-14.5); WHITE BLOOD COUNT 14.6 10^3/ul (4.5-11.0)
[2017-12-17 07:32] LABS: ALBUMIN 3.2 g/dL (3.0-4.8); ALT/SGPT 81 U/L (7-56); AST/SGOT 42 U/L (17-59); BLOOD UREA NITROGEN 18 mg/dL (7-21); CALCIUM 8.7 mg/dL (8.4-10.5); GFR NON-AFRICAN AMERICAN > 60
[2017-12-17] MEDS: Megestrol Acetate 40 mg/ml Cup PO SCH (09:21)
[2017-12-17] MEDS: Cefepime 1gm in NS 100ml 1 GM/100 ML BAG IVPB SCH ×2 (09:21→22:26)
[2017-12-17] MEDS: Azithromycin 500MG/NS 250ml 500 MG/250 ML BAG IVPB SCH (09:21)
[2017-12-17] MEDS: MethylPREDNISolone 40 mg Vial IVP SCH ×2 (09:22→22:26)
[2017-12-17] MEDS ORDERED: Magnesium Citrate Oral SOL (300 ml) PO ONE (10:30)
[2017-12-17] MEDS: Vancomycin 1gm in NS 250ml 1 GM/250 ML BAG IVPB SCH ×2 (12:13→22:58)
--- NOTE | 2017-12-17 15:48 | PN ---
Copied To: Chon Guerra MD Attending MD: Chon Guerra MD DATE: 12/17/2017 SUBJECTIVE: Patient is seen earlier today in no acute distress, nontoxic, no fevers. PHYSICAL EXAMINATION: VITAL SIGNS: Temperature is 98, blood pressure is 112/50, respiratory rate of 20. HEENT: Unremarkable. NECK: Supple. LUNGS: Have decreased breath sounds. HEART: Normal S2 and S2. ABDOMEN: Soft. LABORATORY EXAMINATION: Reveals the patient's white count is 14,000, hemoglobin of 11. Chemistries reveals the BUN of 18, creatine of 0.6. Urinalysis is noted. Microbiology reveals the urine cultures are negative. Blood cultures are negative. ASSESSMENT AND PLAN: This is a 76-year-old male, longtime smoker with a small cell lung cancer with bone metastasis, atrial fibrillation, postoperative pneumonitis and neutropenia presenting with a right-sided healthcare associated pneumonia, leukocytosis, on vancomycin, cefepime with negative pancultures. Blood cultures, urine cultures negative and negative urinalysis and negative procalcitonin with complete 4 to 7 days of antibiotics. We will check on the urine for Legionella antigen. Patient is on IV Zithromax, p.o. vancomycin and cefepime. Chon Guerra MD
[2017-12-17] MEDS: Albuterol-Ipratrop 3 mg / 0.5 (3 ml) UD IH PRN ×2 (17:01→21:40)
--- NOTE | 2017-12-17 21:18 | PN ---
Copied To: Erasmo Briggs MD Attending MD: Erasmo Briggs MD DATE: 12/17/2017 This is [facility]'s hospital visit on the remote telemetry floor. For Dr. Bullard. SUBJECTIVE: The patient is a 76-year-old male, seen sitting up in bed reporting that he is significantly improved with breathing much better; cough is improved after being treated here in the past two days. He is otherwise known to suffer from stage IV cancer of the lung with admission for treatment of pneumonia, exacerbation of COPD. OBJECTIVE PHYSICAL EXAMINATION: VITAL SIGNS: Temperature 97.5, pulse 71, respirations 20, blood pressure 112/58, pulse ox 97%. HEENT: Unremarkable. Tongue is moist. NECK: Supple. HEART: Tachy rate, regular rhythm. LUNGS: Scattered occasional rhonchi. ABDOMEN: Soft, nontender. EXTREMITIES: Faint +1 edema of the feet. NEUROLOGIC: Awake, alert and oriented. LABORATORY DATA: The patient's labs were done. White blood cell count of 14.6, on steroids; hemoglobin 11.1; hematocrit 33; platelet count of 456,000 with a chem metabolic panel. Nonfasting glucose of 159. ALT of 81, alk phos of 158, otherwise normal chem metabolic panel. Urine culture showed no growth and blood cultures also no growth at 48 hours. The patient did have an EKG done yesterday, it was read as atrial fibrillation with rapid ventricular response, abnormal EKG. Echocardiogram is also done yesterday, it was read as mild concentric LVH, mild TR with an ejection fraction of 56%. 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 PLAN: For this patient after conversation with Dr. Bullard is to continue his present medical regimen with the possibility of discharging the patient with resumption of his chemotherapy for Monday, Monday and of this week with hydration on Monday should he qualify the alternatives to postpone his treatment to the following week to give him a chance to recuperate from his hospitalization. We will discuss this with consultants including Dr. Guerra and Dr. Yi to see if this would be feasible. This is a complex patient with a comprehensive medically necessary and appropriate visit carried out in excess of 30 minutes with the patient's questions answered to his satisfaction with discussion held as above. Erasmo Briggs MD
--- NOTE | 2017-12-17 22:18 | PN ---
Copied To: Aura Yi MD Attending MD: Aura Yi MD DATE: 12/17/2017 REFERRING PHYSICIAN: Yesenia Christianson MD SUBJECTIVE: The patient is sitting at side of the bed. Night was unremarkable. Feels better. Decreased cough, decreased shortness of breath. No nausea, no vomiting. No diarrhea, leg pain or leg swelling. OBJECTIVE: GENERAL: No acute distress. VITAL SIGNS: Temperature is 98, heart rate 73, respiratory rate is 20, blood pressure 112/63, pulse ox 100% on nasal cannula. HEENT: Moist mucous membrane. No ulcer or thrush noted NECK: Supple. No JVD. LUNGS: Have fair airflow with few rhonchi. HEART: S1, S2. ABDOMEN: Soft, nontender, no organomegaly. EXTREMITIES: No edema. NEUROLOGIC: Awake, alert and follows simple commands. MEDICATIONS: He is on Ambien 5 mg at bedtime p.r.n., sotalol 40 mg twice a day, Cardizem 120 mg daily, Colace 100 mg twice a day, DuoNeb every 4 hours p.r.n., Eliquis 5 mg twice a day, cefepime 1 g IV every 12 hours., Megace 200 mg daily, MiraLax 17 g daily, OxyContin 5 mg every 6 hours p.r.n., Protonix 40 mg daily, Robitussin 5 mL every 4 hours p.r.n., Solu-Medrol 20 mg every 12 hours, Tessalon Perles 100 mg three times a day, vancomycin 1 g IV every 12 hours, Zithromax 500 mg daily. LABORATORY DATA: Shows hemoglobin 11.1, hematocrit 33, WBC 14.6, platelet is 456. Sodium 134, potassium 4.2, chloride 101, bicarbonate 25, BUN 18, creatinine 0.6, glucose 159, calcium 8.7, AST 42, ALT 81, alk phos is 158. Albumin is 3.2. TSH 0.87. Microbiology, blood culture, urine culture, there is no growth. IMPRESSION AND PLAN: Chronic obstructive lung disease, has a small cell lung cancer with extensive disease with metastatic disease, paroxysmal atrial fibrillation, pulmonary infiltrate. Procalcitonin negative, probably have effusion, atelectasis. Pulmonary point of view, continue bronchodilator. Keep head at 45 degrees. Gastric prophylaxis, anticoagulation, antibiotics as per Infectious Diseases, physical therapy. Thank you and we will follow with you. Aura Yi MD
[2017-12-18] MEDS: Albuterol-Ipratrop 3 mg / 0.5 (3 ml) UD IH PRN ×3 (02:58→20:45)
[2017-12-18] MEDS: guaiFENesin DM 100 mg-10 mg/5 ml UD PO PRN (03:46)
--- NOTE | 2017-12-18 04:37 | CP.PCM.PN ---
Addendum entered and electronically signed by Selam Gomez DO 12/18/17 05:39 : Cardizem is pushed slowly with heart monitor on and auscaltation of the heart AM lab to monitor any electrolyte abnormality as possible cause of Afib RVR Original Note: <Selam Gomez - Last Filed: 12/18/17 04:41> Subjective - Date & Time of Evaluation Date of Evaluation: 12/18/17 Time of Evaluation: 04:27 - Subjective Subjective: PGY-[address] Brock CC: tachycardia 180 Pt had no BM for several days. He took miralax and mag citrate at 11:30AM. Pt has new onset diarrhea x 9 since 9pm. While he was in bathroom while tele monitor recorded HR of 180. Pt ambulates out of bathroom without assist. Denies F/C, CP, palpitation, dizzibness, N/V. (+) watery stool. 121/83, HR 125, temp 97.8, RR 22, POx 100 on 3L. When he stands up, HR up to 170s to 180s Gen: NAD HEENT: EOMI, non-icteric Card: tachycardia, s1,s 2. Port intact Pulm: CTAb/l Abd: soft ntnd. normal bs A/P: 1. Afib RVR likely cause by dehydration from diarrhea - Cardizem 5mg IVP x 1 2. diarrhea, likely side effect of Mg Citrate. Doubt C-diff - NS@75. Echo LVEF 56 - Hold laxative. - If diarrhea does not resolve after holding laxative, should r/o c diff. s/r/d/w Dr Brock Objective - Vital Signs/Intake and Output Vital Signs (last 24 hours): Temp Pulse Resp BP Pulse Ox 97.6 F 89 20 112/63 100 12/17/17 16:48 12/18/17 02:00 12/17/17 16:48 12/17/17 17:26 12/17/17 16:48 Intake and Output: 12/17/17 12/18/17 18:59 06:59 Intake Total 960 Balance 960 - Medications Medications: Current Medications Albuterol/Ipratropium (Duoneb 3 Mg/0.5 Mg (3 Ml) Ud) 3 ml IH [id number] PRN PRN Reason: Shortness of Breath Last Admin: 12/18/17 02:58 Dose: 3 ml Apixaban (Eliquis) 5 mg PO BID [facility] PRN Reason: Protocol Last Admin: 12/17/17 17:26 Dose: 5 mg Benzonatate (Tessalon Perles) 100 mg PO TID [facility] Last Admin: 12/17/17 17:26 Dose: 100 mg Diltiazem HCl (Cardizem Cd) 120 mg PO DAILY [facility] Diltiazem HCl (Cardizem) 5 mg IVP ONCE ONE Stop: 12/18/17 04:27 Docusate Sodium (Colace) 100 mg PO BID [facility] Last Admin: 12/17/17 17:26 Dose: 100 mg Guaifenesin/Dextromethorphan (Robitussin Dm) 5 ml PO Q4H PRN PRN Reason: Cough Last Admin: 12/18/17 03:46 Dose: 5 ml Vancomycin HCl (Vancomycin 1gm) 1 gm in 250 mls @ 167 mls/hr IVPB Q12H [facility] PRN Reason: Protocol Last Admin: 12/17/17 22:58 Dose: 167 mls/hr Cefepime HCl (Maxipime 1gm) 1 gm in 100 mls @ 100 mls/hr IVPB Q12 [facility] PRN Reason: Protocol Last Admin: 12/17/17 22:26 Dose: 100 mls/hr Azithromycin (Zithromax 500mg In Ns) 500 mg in 250 mls @ 167 mls/hr IVPB DAILY [facility] PRN Reason: Protocol Last Admin: 12/17/17 09:21 Dose: 167 mls/hr Megestrol Acetate (Megace) 200 mg PO DAILY [facility] Last Admin: 12/17/17 09:21 Dose: 200 mg Methylprednisolone (Solu-Medrol) 20 mg IVP Q12 [facility] Last Admin: 12/17/17 22:26 Dose: 20 mg Oxycodone HCl (Oxycodone Immediate Release Tab) 5 mg PO Q6H PRN PRN Reason: Pain, severe (8-10) Last Admin: 12/17/17 02:16 Dose: 5 mg Pantoprazole Sodium (Protonix Ec Tab) 20 mg PO 0600 [facility] Last Admin: 12/17/17 05:40 Dose: 20 mg Polyethylene Glycol (Miralax) 17 gm PO DAILY PRN PRN Reason: Constipation Sotalol HCl (Betapace) 40 mg PO BID [facility] Last Admin: 12/17/17 17:26 Dose: 40 mg Zolpidem Tartrate (Ambien) 5 mg PO HS PRN; Protocol PRN Reason: Insomnia Last Admin: 12/18/17 00:37 Dose: 5 mg - Labs Labs: 12/17/17 06:30 12/17/17 06:30 <Steven Brock - Last Filed: 12/19/17 06:00> Objective - Vital Signs/Intake and Output Vital Signs (last 24 hours): Temp Pulse Resp BP Pulse Ox 98.3 F 65 20 106/61 100 12/18/17 16:21 12/19/17 02:00 12/18/17 16:21 12/18/17 22:14 12/18/17 16:21 Intake and Output: 12/18/17 12/19/17 18:59 06:59 Intake Total 2480 Balance 2480 - Medications Medications: Current Medications Albuterol/Ipratropium (Duoneb 3 Mg/0.5 Mg (3 Ml) Ud) 3 ml IH [id number] PRN PRN Reason: Shortness of Breath Last Admin: 12/18/17 20:45 Dose: 3 ml Apixaban (Eliquis) 5 mg PO BID [facility] PRN Reason: Protocol Last Admin: 12/18/17 17:17 Dose: 5 mg Azithromycin (Zithromax) 250 mg PO DAILY [facility] PRN Reason: Protocol Stop: 12/26/17 10:01 Benzonatate (Tessalon Perles) 100 mg PO TID [facility] Last Admin: 12/18/17 17:20 Dose: 100 mg Diltiazem HCl (Cardizem Cd) 120 mg PO DAILY [facility] Diltiazem HCl (Cardizem) 30 mg PO QID [facility] Last Admin: 12/18/17 22:14 Dose: 30 mg Docusate Sodium (Colace) 100 mg PO BID [facility] Last Admin: 12/18/17 17:17 Dose: 100 mg Guaifenesin/Dextromethorphan (Robitussin Dm) 5 ml PO Q4H PRN PRN Reason: Cough Last Admin: 12/19/17 02:49 Dose: 5 ml Cefepime HCl (Maxipime 1gm) 1 gm in 100 mls @ 100 mls/hr IVPB Q12 [facility] PRN Reason: Protocol Last Admin: 12/18/17 22:13 Dose: 100 mls/hr Sodium Chloride (Sodium Chloride 0.9%) 1,000 mls @ 75 mls/hr IV .[id number] [facility] Last Admin: 12/19/17 02:49 Dose: 75 mls/hr diltiaZEM IVPB 100mg in NS (Cardizem 100mg In Ns) 100 mls @ 10 mls/hr IV .Q10H [facility] PRN Reason: 10 MG/HR Megestrol Acetate (Megace) 200 mg PO DAILY [facility] Last Admin: 12/18/17 09:59 Dose: 200 mg Methylprednisolone (Solu-Medrol) 20 mg IVP Q12 [facility] Last Admin: 12/18/17 22:15 Dose: 20 mg Oxycodone HCl (Oxycodone Immediate Release Tab) 5 mg PO Q6H PRN PRN Reason: Pain, severe (8-10) Last Admin: 12/18/17 22:15 Dose: 5 mg Pantoprazole Sodium (Protonix Ec Tab) 20 mg PO 0600 [facility] Last Admin: 12/18/17 06:05 Dose: 20 mg Polyethylene Glycol (Miralax) 17 gm PO DAILY PRN PRN Reason: Constipation Sotalol HCl (Betapace) 40 mg PO BID [facility] Last Admin: 12/18/17 17:15 Dose: 40 mg Zolpidem Tartrate (Ambien) 5 mg PO HS PRN; Protocol PRN Reason: Insomnia Last Admin: 12/18/17 23:57 Dose: 5 mg - Labs Labs: 12/18/17 06:44 12/18/17 06:44 Attending/Attestation - Attestation I have personally seen and examined this patient.: Yes I have fully participated in the care of the patient.: Yes I have reviewed all pertinent clinical information, including history, physical exam and plan: Yes
[2017-12-18] MEDS: Sodium Chloride 0.9% 1,000 ML IV SCH (04:54)
[2017-12-18] MEDS: Pantoprazole 20 mg EC Tab PO SCH (06:05)
--- NOTE | 2017-12-18 06:14 | CP.PCM.PCO ---
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 Monitor noted to be in Afib w/ HR in 150-160's. Patient was evaluated and seemed comfortable and asymptomatic other than for the tachycardia. Cardizem 20mg IVP was pushed slowly and monitor was noted. Patient's HR improved to 90's but was still in Afib. HR became elevated again after a few minutes and went up to 140's-150's and still in Afib. After discussion with Dr. Brock the quarter supervisor, it was decided that the patient would be stated on a non-titratable Cardizem drip @ 5, and this requires patient to be transferred inhouse to telemetry floor since drips are not administered on remote telemetry. Case will be endorsed to morning team, and while no Cardiology consult is placed at this time, we recommend further cardiology recommendations and a consult to be placed. Jordan Weber PGY2
[2017-12-18] MEDS ORDERED: diltiaZEM IVPB 100mg in NS 100 ML IV SCH ×2 (06:15→09:16)
[2017-12-18 07:07] LABS: HEMOGLOBIN 11.9 g/dL (14.0-18.0); MEAN CELL VOLUME 84.4 fl (80.0-105.0); MEAN CORPUSCULAR HGB CONC 34.3 g/dl (31.0-37.0); MEAN PLATELET VOLUME 9.2 fl (7.0-11.0); RBC 4.11 10^6/uL (3.5-6.1); RED CELL DISTRIBUTION WIDTH 15.2 % (11.5-14.5); WHITE BLOOD COUNT 16.2 10^3/ul (4.5-11.0)
[2017-12-18 07:40] LABS: ALBUMIN 3.1 g/dL (3.0-4.8); ALT/SGPT 83 U/L (7-56); AST/SGOT 46 U/L (17-59); BLOOD UREA NITROGEN 19 mg/dL (7-21); CALCIUM 8.6 mg/dL (8.4-10.5); GFR NON-AFRICAN AMERICAN > 60
[2017-12-18] MEDS: MethylPREDNISolone 40 mg Vial IVP SCH ×2 (09:59→22:15)
[2017-12-18] MEDS: Cefepime 1gm in NS 100ml 1 GM/100 ML BAG IVPB SCH ×2 (09:59→22:13)
[2017-12-18] MEDS: Megestrol Acetate 40 mg/ml Cup PO SCH (09:59)
[2017-12-18] MEDS ORDERED: diltiaZEM 120 mg/24 Hours CD Cap PO SCH (10:00)
[2017-12-18] MEDS: Azithromycin 500MG/NS 250ml 500 MG/250 ML BAG IVPB SCH (10:00)
[2017-12-18] MEDS: Vancomycin 1gm in NS 250ml 1 GM/250 ML BAG IVPB SCH (12:00)
--- NOTE | 2017-12-18 14:09 | PN ---
Copied To: Chon Guerra MD Attending MD: Chon Guerra MD DATE: 12/18/2017 SUBJECTIVE: The patient is in bed, in no acute distress, nontoxic. PHYSICAL EXAMINATION: VITAL SIGNS: Temperature is 98, blood pressure is 111/70, respiratory rate of 16. HEENT: Examination of HEENT is unremarkable. NECK: Supple. LUNGS: Have decreased breath sounds. HEART: Normal S1 and S2. ABDOMEN: Soft. LABORATORY DATA: Laboratory examination reveals a white count of 16,200, hemoglobin of 11. Chemistries reveals a BUN of 19, creatinine of 0.6, alk phos is elevated at 150. The patient's procalcitonin is 0.46. Urinalysis is noted. Vancomycin trough is 10.5. Microbiology reveals the blood cultures are negative. Urine culture are negative. The patient's urine for Legionella antigen is pending. The patient is on Solu-Medrol and IV Zithromax. The patient's QTc is 439. Another EKG reveals a QTc of 414. 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 Negative cultures. Negative urinalysis. Negative procalcitonin. We will change the Zithromax to p.o. Would complete 4-7 days of antibiotics. Waiting for urine for Legionella antigen. Overall, long-term prognosis is quite poor. Chon Guerra MD
--- NOTE | 2017-12-18 16:47 | PN ---
Copied To: Yesenia Christianson MD Attending MD: Yesenia Christianson MD DATE: 12/18/2017 SUBJECTIVE: The patient is 76 years old, had episode of SVT, heart rate went up to 180, was given Cardizem and later on was started on Cardizem drip. When I saw the patient, he looks awake, alert, oriented, communicative, not in any distress. Complained of mild shortness of breath on minimal exertion. PHYSICAL EXAMINATION: VITAL SIGNS: He is afebrile, pulse 76, respirations 18, blood pressure 111/78. LUNGS: Bilateral soft crackle in the right midlung region posteriorly. HEART: S1 and S2 audible. ABDOMEN: Soft. Nontender. No rebound. No guarding. NEUROLOGICAL: The patient is awake, alert, oriented, able to communicate. EXTREMITIES: Bilateral leg, no edema. LABORATORY EXAM: WBC 16.2, hemoglobin 11.9, hematocrit 34.7, platelet 502. Chemistry: Sodium 153, potassium 4.4, chloride 97, CO2 of 29, BUN 19, creatinine 0.6, blood sugar 156, AST 46, ALT 83, alk phos is 150. ASSESSMENT: 1. Chronic obstructive pulmonary disease exacerbation, congestive heart failure exacerbation. 2. Cancer of lung with exertional dyspnea and supraventricular tachycardia. PLAN: The patient has been started on Cardizem drip as per Dr. Orozco. He is on sotalol 40 mg twice a day. He is on Cardizem 30 mg four times a day. Initial plan was to start him on drip, but he has been started on p.o. Cardizem since he is not accepted in ICU. We will continue him on nebulizer treatment. He is on IV fluid for now. He has been started on IV steroid. He is on Zithromax. We will follow up his electrolyte and CBC in the a.m. Yesenia Christianson MD
[2017-12-18] MEDS: oxyCODONE 5 mg Immediate Release Tab PO PRN (22:15)
--- NOTE | 2017-12-18 23:18 | PN ---
Copied To: Aura Yi MD Attending MD: Aura Yi MD DATE: 12/18/2017 PULMONARY PROGRESS NOTE REFERRING PHYSICIAN: Dr. Christianson. SUBJECTIVE: He is lying in the bed, head at 45 degrees. Night was unremarkable. Feels better. Decreased cough. No shortness of breath. No nausea, no vomiting, diarrhea, leg pain or leg swelling. OBJECTIVE: GENERAL: In no acute distress. VITAL SIGNS: Temperature is 98, heart rate is 71, respiratory rate is 20, blood pressure 110/60, pulse ox 100% on nasal cannula. HEENT: Moist mucous membrane. Crowded airway. NECK: Supple. No JVD. LUNGS: Have fair airflow with a few rhonchi. HEART: S1 and S2. ABDOMEN: Soft, nontender, no organomegaly. EXTREMITIES: No edema. NEUROLOGIC: Awake, alert and follows simple commands. MEDICATIONS: He is on Ambien 5 mg at bedtime p.r.n., sotalol 40 mg twice a day, diltiazem 30 mg four times a day, Colace 100 mg twice a day, DuoNeb every 4 hours p.r.n., Eliquis 5 mg twice a day, cefepime 1 g IV every 12 hours, Megace 200 mg daily, MiraLax 17 g daily, oxycodone immediate release 5 mg every 6 hours p.r.n., Protonix 20 mg daily, Robitussin DM 5 mL every 4 hours p.r.n., IV fluid normal saline 75 mL per hour, Solu-Medrol 20 mg every 12 hours, Tessalon Perles 100 mg three times a day, Zithromax 250 mg daily. LABORATORY DATA: Shows hemoglobin 11.9, hematocrit 34.7, WBC 16.2, platelet count is 502. Sodium 133, potassium 4.4, chloride 97, bicarbonate 28, BUN is 19, creatinine 0.6. Glucose 156, calcium 8.6. AST 46, ALT 83, alk phos is 150. Albumin is 3.1. Microbiology, blood culture, urine culture, there is no growth. IMPRESSION AND PLAN: Chronic obstructive lung disease, small cell lung cancer with extensive disease with mets, paroxysmal atrial fibrillation, pulmonary infiltrate. Pulmonary point of view, doing okay. Has right-sided effusion. Continue bronchodilator. Keep head at 45 degrees. Antibiotics as per Infectious Disease. Gastric prophylaxis, anticoagulation, fall precaution. Hematology/Oncology followup. Thank you and we will follow with you. Aura Yi MD
--- NOTE | 2017-12-19 00:13 | PN ---
Copied To: Erasmo Briggs MD Attending MD: Erasmo Briggs MD DATE: 12/18/2017 This is [facility] visit on the telemetry floor. For Dr. Bullard. SUBJECTIVE: The patient is a 76-year-old male, seen lying awake in bed, in no acute distress at this time; however, he was noted to have rapid atrial fibrillation on monitoring, with the patient now to be transferred to the Intensive Care Unit as per Dr. Orozco, Cardiology. The patient had resolution of his dysrhythmia with patient otherwise at this time in no acute distress. The patient was admitted for increasing shortness of breath, pneumonia, known to have small cell carcinoma with extensive mediastinal and hilar adenopathy, lytic lesion at T7, status post radiation treatment with the patient to have begun his resumption of chemotherapy on Monday, Monday, and of this week with hydration on Monday; however, this will be postponed as the patient needs to be medically stable. This was explained to the patient with the nursing staff also aware. PHYSICAL EXAMINATION: VITAL SIGNS: Stable. HEENT: Unremarkable. NECK: Supple. No JVD. HEART: Regular rate, rare occasional ectopic beats. LUNGS: Scattered rhonchi, right greater than left, decreased breath sounds. ABDOMEN: Soft, nontender. EXTREMITIES: Faint +1 edema. NEUROLOGIC: Awake and alert. SKIN: Warm and dry. The patient appears cachectic with oxygen on; however, he is not short of breath at this time as his dysrhythmia was controlled by Dr. Orozco, Cardiology. LABORATORY DATA: The patient's labs were done. White blood cell count of 16.2, hemoglobin 11.9, hematocrit 34.7, platelet count 507,000 with a normal chem-7. 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 PLAN: For this patient after conversation with Dr. Bullard and nurses on floor is to transfer to the Intensive Care Unit as per Dr. Orozco, Cardiology. Also, discussion with Dr. Christianson, primary medical doctor with necessity to hold off on chemotherapy planned for tomorrow to Monday, Monday, with hydration on Monday, Neulasta on Monday. We will reschedule this once the patient improved. This is a complex patient with a comprehensive medically necessary and appropriate visit carried out in excess of 40 minutes [id number] time, discussion was held with nursing staff, patient, and Dr. Christianson with arrangements made for transfer to the Intensive Care Unit. Erasmo Briggs MD
[2017-12-19] MEDS: guaiFENesin DM 100 mg-10 mg/5 ml UD PO PRN ×2 (02:49→18:53)
[2017-12-19] MEDS: Sodium Chloride 0.9% 1,000 ML IV SCH (02:49)
--- NOTE | 2017-12-19 03:50 | CON ---
Copied To: Aura Orozco MD Attending MD: Aura Orozco DATE: 12/18/2017 REASON FOR CONSULTATION: AFib with rapid ventricular rate. BRIEF CLINICAL HISTORY: A 76-year-old male with past medical history significant for small cell lung CA stage IV, AFib, history of duodenal ulcer who was admitted with cough and possibly postobstructive pneumonia. This morning, the patient went in to AFib with a rapid ventricular rate. Cardiac consultation was called. Patient denies any chest pain, shortness of breath, but feels palpitation. PAST MEDICAL HISTORY: Recently came from [place] and found to have pneumonia. Workup shows small cell cancer which is stage IV, AFib, history of CT guided biopsy. PAST SURGICAL HISTORY: Postop guided biopsy. SOCIAL HISTORY: Quit smoking many years ago. Denies any history of alcohol abuse. Former smoker. ALLERGIES: NO KNOWN DRUG ALLERGIES. CURRENT MEDICATIONS: Patient at home was taking Megace, benzodiazepine, oxycodone, Eliquis 5 p.o. b.i.d., , sotalol, Betapace. RECENT CARDIAC WORKUP: Patient had an echocardiography done on 12/16/2017 that shows normal chamber size, normal LV systolic function, mild concentric LVH, mild TR, RV systolic pressure 27, calculated ejection fraction 56%. IMPRESSION: A 76-year-old male with a past medical history significant for paroxysmal atrial fibrillation, history of lung carcinoma with metastasis, admitted with possible pneumonia and postobstructive this morning, atrial fibrillation with rapid ventricular rate. Patient was constipated yesterday, getting some mag citrate. Now, the patient has loose bowel movement. Now, the patient has atrial fibrillation with rapid ventricular rate, history of paroxysmal atrial fibrillation. RECOMMENDATIONS: Move patient to telemetry. Give IV Cardizem push 10 mg push followed by 10 mg in an hour, hold p.o. Cardizem. Monitor closely. The patient had recently echo done shows preserved LV function. We will follow with you. Continue Eliquis. We will get a TSH, lipid profile, hemoglobin A1c. We will repeat the lab in the morning. Thank you, Dr. Christianson, for providing us the opportunity in taking care of patient, Salvador Alvarenga. Aura Orozco MD [facility] # [id number]
[2017-12-19] MEDS: Pantoprazole 20 mg EC Tab PO SCH (06:06)
--- NOTE | 2017-12-19 06:53 | CP.PCM.PN ---
Subjective - Date & Time of Evaluation Date of Evaluation: 12/19/17 Time of Evaluation: 06:30 - Subjective Subjective: Awake, alert, no distress, feels okay Reason for consultation and follow up: Cardiac evaluation of rapid atrial fibrillation, history of Afib, stage IV lung cancer. Seen and examined by me and Dr. Orozco Objective - Vital Signs/Intake and Output Vital Signs (last 24 hours): Temp Pulse Resp BP Pulse Ox 98.3 F 65 20 106/61 100 12/18/17 16:21 12/19/17 02:00 12/18/17 16:21 12/18/17 22:14 12/18/17 16:21 Intake and Output: 12/18/17 12/19/17 18:59 06:59 Intake Total 2480 Balance 2480 - Medications Medications: Current Medications Albuterol/Ipratropium (Duoneb 3 Mg/0.5 Mg (3 Ml) Ud) 3 ml IH [id number] PRN PRN Reason: Shortness of Breath Last Admin: 12/18/17 20:45 Dose: 3 ml Apixaban (Eliquis) 5 mg PO BID [facility] PRN Reason: Protocol Last Admin: 12/18/17 17:17 Dose: 5 mg Azithromycin (Zithromax) 250 mg PO DAILY [facility] PRN Reason: Protocol Stop: 12/26/17 10:01 Benzonatate (Tessalon Perles) 100 mg PO TID [facility] Last Admin: 12/18/17 17:20 Dose: 100 mg Diltiazem HCl (Cardizem Cd) 120 mg PO DAILY [facility] Diltiazem HCl (Cardizem) 30 mg PO QID [facility] Last Admin: 12/18/17 22:14 Dose: 30 mg Docusate Sodium (Colace) 100 mg PO BID [facility] Last Admin: 12/18/17 17:17 Dose: 100 mg Guaifenesin/Dextromethorphan (Robitussin Dm) 5 ml PO Q4H PRN PRN Reason: Cough Last Admin: 12/19/17 02:49 Dose: 5 ml Cefepime HCl (Maxipime 1gm) 1 gm in 100 mls @ 100 mls/hr IVPB Q12 [facility] PRN Reason: Protocol Last Admin: 12/18/17 22:13 Dose: 100 mls/hr Sodium Chloride (Sodium Chloride 0.9%) 1,000 mls @ 75 mls/hr IV .[id number] [facility] Last Admin: 12/19/17 02:49 Dose: 75 mls/hr diltiaZEM IVPB 100mg in NS (Cardizem 100mg In Ns) 100 mls @ 10 mls/hr IV .Q10H [facility] PRN Reason: 10 MG/HR Megestrol Acetate (Megace) 200 mg PO DAILY [facility] Last Admin: 12/18/17 09:59 Dose: 200 mg Methylprednisolone (Solu-Medrol) 20 mg IVP Q12 [facility] Last Admin: 12/18/17 22:15 Dose: 20 mg Oxycodone HCl (Oxycodone Immediate Release Tab) 5 mg PO Q6H PRN PRN Reason: Pain, severe (8-10) Last Admin: 12/18/17 22:15 Dose: 5 mg Pantoprazole Sodium (Protonix Ec Tab) 20 mg PO 0600 [facility] Last Admin: 12/19/17 06:06 Dose: 20 mg Polyethylene Glycol (Miralax) 17 gm PO DAILY PRN PRN Reason: Constipation Sotalol HCl (Betapace) 40 mg PO BID [facility] Last Admin: 12/18/17 17:15 Dose: 40 mg Zolpidem Tartrate (Ambien) 5 mg PO HS PRN; Protocol PRN Reason: Insomnia Last Admin: 12/18/17 23:57 Dose: 5 mg - Labs Labs: 12/18/17 06:44 12/18/17 06:44 - Constitutional Appears: No Acute Distress - Eye Exam Eye Exam: Normal appearance - Respiratory Exam Respiratory Exam: Decreased Breath Sounds, NORMAL BREATHING PATTERN - Cardiovascular Exam Cardiovascular Exam: REGULAR RHYTHM, +S1, +S2 Additional comments: telemetry NSR right chest port - GI/Abdominal Exam GI & Abdominal Exam: Soft, Normal Bowel Sounds - Extremities Exam Extremities Exam: Normal Capillary Refill - Neurological Exam Neurological Exam: Alert, Awake, Oriented x3 - Psychiatric Exam Psychiatric exam: Normal Affect - Skin Skin Exam: Dry, Warm Assessment and Plan - Assessment and Plan (Free Text) Assessment: A 76 year old male who came in to the ER due to productive cough. History of small cell carcinoma of the lung stage IV, A-fib and duodenal ulcer, recent pneumonia, former smoker. Patient recently undergone chemotherapy and radiation therapy. Follows up with Dr. Aleah. Cardiac consult was called due to rapid Atrial fibrillation. Cardizem bolus given. Now on NSR. Plan: Feeling okay Telemetry NSR 60-70's, controlled heart rate Controlled blood pressure Continue on Sotalol and Cardizem On Eliquis 5 mg BID,Cardizem CD 120 mg daily, Sotalol 40 mg BID Continue antibiotics per ID Pulmonary on consult Continue current treatment Continue current medications Will follow up Plan and treatment discussed with Dr. Orozco
[2017-12-19 07:14] LABS: HEMOGLOBIN 12.7 g/dL (14.0-18.0); MEAN CORPUSCULAR HEMOGLOBIN 28.7 pg (25.0-35.0); MEAN CORPUSCULAR HGB CONC 33.3 g/dl (31.0-37.0); RBC 4.43 10^6/uL (3.5-6.1); RED CELL DISTRIBUTION WIDTH 15.7 % (11.5-14.5); WHITE BLOOD COUNT 14.6 10^3/ul (4.5-11.0)
[2017-12-19 07:47] LABS: ALB/GLOB RATIO 1.1 (1.1-1.8); ALBUMIN 3.4 g/dL (3.0-4.8); ALT/SGPT 71 U/L (7-56); AST/SGOT 26 U/L (17-59); BLOOD UREA NITROGEN 20 mg/dL (7-21); CALCIUM 8.8 mg/dL (8.4-10.5); GFR NON-AFRICAN AMERICAN > 60; HDL CHOLESTEROL 28 mg/dL (29-60)
[2017-12-19 07:50] LABS: LDL CHOLESTEROL 57 mg/dL (0-129)
[2017-12-19] MEDS: Albuterol-Ipratrop 3 mg / 0.5 (3 ml) UD IH PRN ×3 (07:59→21:57)
--- NOTE | 2017-12-19 08:57 | PN ---
Copied To: Yesenia Christianson MD Attending MD: Yesenia Christianson MD DATE: 12/17/2017 SUBJECTIVE: The patient is a 76 years old, seen and examined. Extremely weak, gets short of breath on exertion. Poor oral intake. Denies any nausea or vomiting, but does not have good appetite. Complains of shortness of breath on minimal exertion. PHYSICAL EXAMINATION: VITAL SIGNS: He is afebrile, pulse 96, respirations 22, blood pressure 112/58. LUNGS: Bilaterally diffusely decreased breath sounds. HEART: S1 and S2 audible. ABDOMEN: Soft. Nontender. No rebound. No guarding. NEUROLOGICAL: He is awake, alert, oriented, communicative. EXTREMITIES: Bilateral legs, no edema. LABORATORY DATA: WBC 14.6, hemoglobin 11, hematocrit 33, platelets 456. Chemistry: Sodium 135, potassium 4.2, chloride 101, CO2 of 25, BUN 18, creatinine 0.6, blood sugar of 159. AST 81, ALT 42, alk phos is 158. ASSESSMENT: 1. Chronic obstructive pulmonary disease exacerbation. 2. Carcinoma of lung with bony metastasis. 3. Small cell carcinoma with bone metastasis. 4. Paroxysmal atrial fibrillation. 5. Generalized weakness and deconditioning. 6. Anemia. 7. Abnormal liver function tests. 8. Chronic atrial fibrillation. PLAN: Currently, the patient is on sotalol 40 mg twice a day. He is getting diltiazem 30 mg 3 times a day, I will make it 120 and carefully watching his blood pressure. Continue him on Eliquis. He is on Maxipime at this point and he is on vancomycin. I will follow up this patient in a.m. Yesenia Christianson MD
--- NOTE | 2017-12-19 09:11 | PN ---
Copied To: Yesenia Christianson MD Attending MD: Yesenia Christianson MD DATE: 12/16/2017 SUBJECTIVE: The patient is a 76 years old, seen and examined. Resting comfortably. This morning, had an episode of supraventricular tachycardia, was given Cardizem, doing well now. PHYSICAL EXAMINATION: GENERAL: He is sleepy, but arousable, not in any distress. No chest pain. No shortness of breath. VITAL SIGNS: He is afebrile, pulse 57, respirations 20, blood pressure 108/49. LUNGS: Bilateral fair airflow, decreased at bases. HEART: S1 and S2 audible. ABDOMEN: Soft. Nontender. No rebound. No guarding. NEUROLOGICAL: The patient is sleepy but arousable, moves all extremities. Has generalized weakness. LABORATORY DATA: WBC 11.7, hemoglobin 11.9, hematocrit 34.5, platelets 147. Chemistry: Sodium 134, potassium 4.9, chloride 100, CO2 of 24, BUN 15, creatinine 0.6, blood sugar 180. LFTs show AST 44, ALT 75, alk phos is 176. ASSESSMENT: 1. History of carcinoma of lung. 2. Chronic obstructive pulmonary disease. 3. Small cell carcinoma with bony metastasis. 4. Paroxysmal atrial fibrillation. 5. Exertional dyspnea. 6. Recently, he finished his chemotherapy last week. 7. Poor oral intake and weight loss. PLAN: The patient has been started on sotalol. He is on diltiazem 30 mg t.i.d. Continue nebulizer treatment. He is on Eliquis. He is on antibiotics. Out of bed to chair. I will request for physical therapy evaluation. We will start him on Ensure. Yesenia Christianson MD
[2017-12-19] MEDS: Cefepime 1gm in NS 100ml 1 GM/100 ML BAG IVPB SCH ×2 (11:01→23:17)
[2017-12-19] MEDS: MethylPREDNISolone 40 mg Vial IVP SCH (11:01)
[2017-12-19] MEDS: Megestrol Acetate 40 mg/ml Cup PO SCH (11:05)
--- NOTE | 2017-12-19 11:28 | CP.PCM.PN ---
<Jesus Contreras - Last Filed: 12/19/17 11:24> Subjective - Date & Time of Evaluation Date of Evaluation: 12/19/17 Time of Evaluation: 11:24 - Subjective Subjective: Patient seen and examined at bedside. Patient states he is tired and has not been able to sleep. Patient admits to mild cough. Denies chest pain, shortness of breath, nausea, vomiting, diarrhea, fever, chills. Objective - Vital Signs/Intake and Output Vital Signs (last 24 hours): Temp Pulse Resp BP Pulse Ox 99.4 F 63 20 126/71 100 12/19/17 07:54 12/19/17 11:02 12/19/17 07:54 12/19/17 07:54 12/19/17 07:54 Intake and Output: 12/19/17 12/19/17 06:59 18:59 Intake Total 1550 Output Total 650 Balance 900 - Medications Medications: Current Medications Albuterol/Ipratropium (Duoneb 3 Mg/0.5 Mg (3 Ml) Ud) 3 ml IH [id number] PRN PRN Reason: Shortness of Breath Last Admin: 12/19/17 07:59 Dose: 3 ml Apixaban (Eliquis) 5 mg PO BID [facility] PRN Reason: Protocol Last Admin: 12/19/17 11:02 Dose: 5 mg Azithromycin (Zithromax) 250 mg PO DAILY [facility] PRN Reason: Protocol Stop: 12/26/17 10:01 Last Admin: 12/19/17 11:02 Dose: 250 mg Benzonatate (Tessalon Perles) 100 mg PO TID [facility] Last Admin: 12/19/17 11:02 Dose: 100 mg Diltiazem HCl (Cardizem Cd) 120 mg PO DAILY [facility] Diltiazem HCl (Cardizem) 30 mg PO QID [facility] Last Admin: 12/19/17 11:02 Dose: 30 mg Docusate Sodium (Colace) 100 mg PO BID [facility] Last Admin: 12/19/17 11:02 Dose: 100 mg Guaifenesin/Dextromethorphan (Robitussin Dm) 5 ml PO Q4H PRN PRN Reason: Cough Last Admin: 12/19/17 02:49 Dose: 5 ml Cefepime HCl (Maxipime 1gm) 1 gm in 100 mls @ 100 mls/hr IVPB Q12 [facility] PRN Reason: Protocol Last Admin: 12/19/17 11:01 Dose: 100 mls/hr Sodium Chloride (Sodium Chloride 0.9%) 1,000 mls @ 75 mls/hr IV .[id number] [facility] Last Admin: 12/19/17 02:49 Dose: 75 mls/hr diltiaZEM IVPB 100mg in NS (Cardizem 100mg In Ns) 100 mls @ 10 mls/hr IV .Q10H [facility] PRN Reason: 10 MG/HR Megestrol Acetate (Megace) 200 mg PO DAILY [facility] Last Admin: 12/19/17 11:05 Dose: 200 mg Methylprednisolone (Solu-Medrol) 20 mg IVP Q12 [facility] Last Admin: 12/19/17 11:01 Dose: 20 mg Pantoprazole Sodium (Protonix Ec Tab) 20 mg PO 0600 [facility] Last Admin: 12/19/17 06:06 Dose: 20 mg Polyethylene Glycol (Miralax) 17 gm PO DAILY PRN PRN Reason: Constipation Sotalol HCl (Betapace) 40 mg PO BID [facility] Last Admin: 12/19/17 11:05 Dose: 40 mg Zolpidem Tartrate (Ambien) 5 mg PO HS PRN; Protocol PRN Reason: Insomnia Last Admin: 12/18/17 23:57 Dose: 5 mg - Labs Labs: 12/19/17 07:00 12/19/17 07:00 - Constitutional Appears: Non-toxic, No Acute Distress - Head Exam Head Exam: ATRAUMATIC, NORMAL INSPECTION, NORMOCEPHALIC - ENT Exam ENT Exam: Mucous Membranes Moist - Respiratory Exam Respiratory Exam: Clear to Ausculation Bilateral, NORMAL BREATHING PATTERN - Cardiovascular Exam Cardiovascular Exam: Irregular Rhythm, +S1, +S2 - GI/Abdominal Exam GI & Abdominal Exam: Soft, Normal Bowel Sounds. absent: Tenderness - Extremities Exam Extremities Exam: Normal Inspection. absent: Pedal Edema - Neurological Exam Neurological Exam: Alert, Awake, CN II-XII Intact, Oriented x3 - Psychiatric Exam Psychiatric exam: Normal Affect, Normal Mood - Skin Skin Exam: Intact, Normal Color, Warm Assessment and Plan - Assessment and Plan (Free Text) Plan: 1. COPD exacerbation 2. Post-obstructive pneumonitis 3. 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 Hx of A-fib Patient currently remains on Cefepime and Zithromax. Blood cultures negative x2 and procalcitonin is negative at this time. Will follow up with ID for potential switch to oral antibiotic regimen. Patient continues to be on solumedrol, which has improved his pulmonary symptoms. Patient is planned to have chemotherapy as outpatient as per oncology team. Patient remains on sotalol and oral cardizem for his heart rate, which is now well controlled. We will continue current medical regimen and monitor closely. Diane, PGY-3 <Yesenia Christianson - Last Filed: 12/19/17 13:10> Objective - Vital Signs/Intake and Output Vital Signs (last 24 hours): Temp Pulse Resp BP Pulse Ox 99.4 F 63 20 126/71 100 12/19/17 07:54 12/19/17 11:02 12/19/17 07:54 12/19/17 07:54 12/19/17 07:54 Intake and Output: 12/19/17 12/19/17 06:59 18:59 Intake Total 1550 Output Total 650 Balance 900 - Medications Medications: Current Medications Albuterol/Ipratropium (Duoneb 3 Mg/0.5 Mg (3 Ml) Ud) 3 ml IH [id number] PRN PRN Reason: Shortness of Breath Last Admin: 12/19/17 07:59 Dose: 3 ml Apixaban (Eliquis) 5 mg PO BID [facility] PRN Reason: Protocol Last Admin: 12/19/17 11:02 Dose: 5 mg Azithromycin (Zithromax) 250 mg PO DAILY [facility] PRN Reason: Protocol Stop: 12/26/17 10:01 Last Admin: 12/19/17 11:02 Dose: 250 mg Benzonatate (Tessalon Perles) 100 mg PO TID [facility] Last Admin: 12/19/17 11:02 Dose: 100 mg Diltiazem HCl (Cardizem Cd) 120 mg PO DAILY [facility] Diltiazem HCl (Cardizem) 30 mg PO QID [facility] Last Admin: 12/19/17 11:02 Dose: 30 mg Docusate Sodium (Colace) 100 mg PO BID [facility] Last Admin: 12/19/17 11:02 Dose: 100 mg Guaifenesin/Dextromethorphan (Robitussin Dm) 5 ml PO Q4H PRN PRN Reason: Cough Last Admin: 12/19/17 02:49 Dose: 5 ml Cefepime HCl (Maxipime 1gm) 1 gm in 100 mls @ 100 mls/hr IVPB Q12 [facility] PRN Reason: Protocol Last Admin: 12/19/17 11:01 Dose: 100 mls/hr Sodium Chloride (Sodium Chloride 0.9%) 1,000 mls @ 75 mls/hr IV .[id number] [facility] Last Admin: 12/19/17 02:49 Dose: 75 mls/hr diltiaZEM IVPB 100mg in NS (Cardizem 100mg In Ns) 100 mls @ 10 mls/hr IV .Q10H [facility] PRN Reason: 10 MG/HR Megestrol Acetate (Megace) 200 mg PO DAILY [facility] Last Admin: 12/19/17 11:05 Dose: 200 mg Pantoprazole Sodium (Protonix Ec Tab) 20 mg PO 0600 [facility] Last Admin: 12/19/17 06:06 Dose: 20 mg Polyethylene Glycol (Miralax) 17 gm PO DAILY PRN PRN Reason: Constipation Prednisone (Prednisone Tab) 40 mg PO DAILY [facility] Sotalol HCl (Betapace) 40 mg PO BID [facility] Last Admin: 12/19/17 11:05 Dose: 40 mg Zolpidem Tartrate (Ambien) 5 mg PO HS PRN; Protocol PRN Reason: Insomnia Last Admin: 12/18/17 23:57 Dose: 5 mg - Labs Labs: 12/19/17 07:00 12/19/17 07:00 Assessment and Plan - Assessment and Plan (Free Text) Assessment: d/w resident ,agree with plan dc plan for tomorrow ,PT eval today
--- NOTE | 2017-12-19 11:29 | CP.PCM.PN ---
Subjective - Date & Time of Evaluation Date of Evaluation: 12/19/17 Time of Evaluation: 11:26 - Subjective Subjective: Heme/Onc Progress Note for Dr. Bullard -- Doug Law DO PGY2 Patient seen and examined at bedside. No acute overnight events. Patient has a slight cough that has improved. Patient also states that he has had multiple episodes of diarrhea, most likely secondary to laxative medications given. Patient currently denies chest pain, chest discomfort, palpitations, SOB, dyspnea, wheezing, nausea, vomiting, constipation, fever, chills, headache, vision loss, hearing loss or dizziness. Objective - Vital Signs/Intake and Output Vital Signs (last 24 hours): Temp Pulse Resp BP Pulse Ox 99.4 F 63 20 126/71 100 12/19/17 07:54 12/19/17 11:02 12/19/17 07:54 12/19/17 07:54 12/19/17 07:54 Intake and Output: 12/19/17 12/19/17 06:59 18:59 Intake Total 1550 Output Total 650 Balance 900 - Medications Medications: Current Medications Albuterol/Ipratropium (Duoneb 3 Mg/0.5 Mg (3 Ml) Ud) 3 ml IH [id number] PRN PRN Reason: Shortness of Breath Last Admin: 12/19/17 07:59 Dose: 3 ml Apixaban (Eliquis) 5 mg PO BID [facility] PRN Reason: Protocol Last Admin: 12/19/17 11:02 Dose: 5 mg Azithromycin (Zithromax) 250 mg PO DAILY [facility] PRN Reason: Protocol Stop: 12/26/17 10:01 Last Admin: 12/19/17 11:02 Dose: 250 mg Benzonatate (Tessalon Perles) 100 mg PO TID [facility] Last Admin: 12/19/17 11:02 Dose: 100 mg Diltiazem HCl (Cardizem Cd) 120 mg PO DAILY [facility] Diltiazem HCl (Cardizem) 30 mg PO QID [facility] Last Admin: 12/19/17 11:02 Dose: 30 mg Docusate Sodium (Colace) 100 mg PO BID [facility] Last Admin: 12/19/17 11:02 Dose: 100 mg Guaifenesin/Dextromethorphan (Robitussin Dm) 5 ml PO Q4H PRN PRN Reason: Cough Last Admin: 12/19/17 02:49 Dose: 5 ml Cefepime HCl (Maxipime 1gm) 1 gm in 100 mls @ 100 mls/hr IVPB Q12 [facility] PRN Reason: Protocol Last Admin: 12/19/17 11:01 Dose: 100 mls/hr Sodium Chloride (Sodium Chloride 0.9%) 1,000 mls @ 75 mls/hr IV .[id number] [facility] Last Admin: 12/19/17 02:49 Dose: 75 mls/hr diltiaZEM IVPB 100mg in NS (Cardizem 100mg In Ns) 100 mls @ 10 mls/hr IV .Q10H [facility] PRN Reason: 10 MG/HR Megestrol Acetate (Megace) 200 mg PO DAILY [facility] Last Admin: 12/19/17 11:05 Dose: 200 mg Methylprednisolone (Solu-Medrol) 20 mg IVP Q12 [facility] Last Admin: 12/19/17 11:01 Dose: 20 mg Pantoprazole Sodium (Protonix Ec Tab) 20 mg PO 0600 [facility] Last Admin: 12/19/17 06:06 Dose: 20 mg Polyethylene Glycol (Miralax) 17 gm PO DAILY PRN PRN Reason: Constipation Sotalol HCl (Betapace) 40 mg PO BID [facility] Last Admin: 12/19/17 11:05 Dose: 40 mg Zolpidem Tartrate (Ambien) 5 mg PO HS PRN; Protocol PRN Reason: Insomnia Last Admin: 12/18/17 23:57 Dose: 5 mg - Labs Labs: 12/19/17 07:00 12/19/17 07:00 - Constitutional Appears: No Acute Distress - Head Exam Head Exam: NORMAL INSPECTION - Eye Exam Eye Exam: Normal appearance - ENT Exam ENT Exam: Mucous Membranes Moist, Normal Exam - Neck Exam Neck Exam: Normal Inspection - Respiratory Exam Respiratory Exam: Decreased Breath Sounds (on right). absent: Rales, Rhonchi, Wheezes - Cardiovascular Exam Cardiovascular Exam: RRR, +S1, +S4. absent: Gallop, Rubs, Murmur - GI/Abdominal Exam GI & Abdominal Exam: Soft. 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 Oncology consulted as patient is currently undergoing chemotherapy for his stage IV small cell lung cancer. Patient's hospital course was complicated by atrial fibrillation with rapid ventricular rate that required cardizem drip. However, patient has been transitioned to PO cardizem and sotolol, which has controlled his rate. Plan: - Will hold off on chemotherapy T// and hydration on F until patient is medically stable; may resume chemotherapy outpatient - D/C solumedrol; Start PO prednisone tomorrow - PO Cardizem and Sotolol for A-fib rate control, Eliquis for AC; further recs per Cardio - Abx per ID - Further management per primary Case discussed with attending. Doug Law, DO PGY2
--- NOTE | 2017-12-19 16:32 | CP.PCM.PN ---
Subjective - Date & Time of Evaluation Date of Evaluation: 12/19/17 Time of Evaluation: 10:45 - Subjective Subjective: Comfortable in bed, no cough currently, no fevers. Objective - Vital Signs/Intake and Output Vital Signs (last 24 hours): Temp Pulse Resp BP Pulse Ox 99.4 F 63 20 126/71 100 12/19/17 07:54 12/19/17 07:54 12/19/17 07:54 12/19/17 07:54 12/19/17 07:54 Intake and Output: 12/19/17 12/19/17 06:59 18:59 Intake Total 1550 Output Total 650 Balance 900 - Medications Medications: Current Medications Albuterol/Ipratropium (Duoneb 3 Mg/0.5 Mg (3 Ml) Ud) 3 ml IH [id number] PRN PRN Reason: Shortness of Breath Last Admin: 12/19/17 07:59 Dose: 3 ml Apixaban (Eliquis) 5 mg PO BID [facility] PRN Reason: Protocol Last Admin: 12/18/17 17:17 Dose: 5 mg Azithromycin (Zithromax) 250 mg PO DAILY [facility] PRN Reason: Protocol Stop: 12/26/17 10:01 Benzonatate (Tessalon Perles) 100 mg PO TID [facility] Last Admin: 12/18/17 17:20 Dose: 100 mg Diltiazem HCl (Cardizem Cd) 120 mg PO DAILY [facility] Diltiazem HCl (Cardizem) 30 mg PO QID [facility] Last Admin: 12/18/17 22:14 Dose: 30 mg Docusate Sodium (Colace) 100 mg PO BID [facility] Last Admin: 12/18/17 17:17 Dose: 100 mg Guaifenesin/Dextromethorphan (Robitussin Dm) 5 ml PO Q4H PRN PRN Reason: Cough Last Admin: 12/19/17 02:49 Dose: 5 ml Cefepime HCl (Maxipime 1gm) 1 gm in 100 mls @ 100 mls/hr IVPB Q12 [facility] PRN Reason: Protocol Last Admin: 12/18/17 22:13 Dose: 100 mls/hr Sodium Chloride (Sodium Chloride 0.9%) 1,000 mls @ 75 mls/hr IV .[id number] [facility] Last Admin: 12/19/17 02:49 Dose: 75 mls/hr diltiaZEM IVPB 100mg in NS (Cardizem 100mg In Ns) 100 mls @ 10 mls/hr IV .Q10H [facility] PRN Reason: 10 MG/HR Megestrol Acetate (Megace) 200 mg PO DAILY [facility] Last Admin: 12/18/17 09:59 Dose: 200 mg Methylprednisolone (Solu-Medrol) 20 mg IVP Q12 [facility] Last Admin: 12/18/17 22:15 Dose: 20 mg Oxycodone HCl (Oxycodone Immediate Release Tab) 5 mg PO Q6H PRN PRN Reason: Pain, severe (8-10) Last Admin: 12/18/17 22:15 Dose: 5 mg Pantoprazole Sodium (Protonix Ec Tab) 20 mg PO 0600 [facility] Last Admin: 12/19/17 06:06 Dose: 20 mg Polyethylene Glycol (Miralax) 17 gm PO DAILY PRN PRN Reason: Constipation Sotalol HCl (Betapace) 40 mg PO BID [facility] Last Admin: 12/18/17 17:15 Dose: 40 mg Zolpidem Tartrate (Ambien) 5 mg PO HS PRN; Protocol PRN Reason: Insomnia Last Admin: 12/18/17 23:57 Dose: 5 mg - Labs Labs: 12/19/17 07:00 12/19/17 07:00 - Constitutional Appears: Chronically Ill - Head Exam Head Exam: NORMAL INSPECTION - Respiratory Exam Respiratory Exam: Decreased Breath Sounds - Cardiovascular Exam Cardiovascular Exam: +S1, +S2 - GI/Abdominal Exam GI & Abdominal Exam: Soft. absent: Tenderness Assessment and Plan - Assessment and Plan (Free Text) Plan: Assessment Right sided HCAP S/P neutropenia without fever small cell lung cancer atrial fibrillation significant smoking history S/P port-a-cath placement Plan continue Cefepime and Zithromax day 4 for 4-7 days; by tomorrow, can switch to just PO Zithromax to complete the 7 days (since PCT is less than 0.5, cultures are negative) overall prognosis is poor
--- NOTE | 2017-12-19 21:34 | CARD ---
APPROVED REPORT Date of service: 12/19/2017 EKG Measurement Heart [id number] <Conclusion> Normal sinus rhythm Normal ECG
[2017-12-19] MEDS ORDERED: guaiFENesin-DM 600-30 mg ER Tab PO ONE (22:13)
--- NOTE | 2017-12-20 02:09 | PN ---
Copied To: Aura Yi MD Attending MD: Aura Yi MD DATE: 12/19/2017 PULMONARY PROGRESS NOTE REFERRING PHYSICIAN: Yesenia Christianson MD SUBJECTIVE: He is sitting side of the bed, having dinner. Night was unremarkable. Get short of breath with exertion. No cough. No nausea. No vomiting, diarrhea, leg pain or leg swelling. OBJECTIVE GENERAL: In no acute distress. VITAL SIGNS: Temperature is 98, heart rate 68, respiratory rate is 20, blood pressure 119/66, pulse 100% on room air. HEENT: Moist mucous membranes. NECK: Supple. No JVD. LUNGS: Have a few scattered rhonchi. HEART: S1 and S2. ABDOMEN: Soft, nontender, no organomegaly. EXTREMITIES: There is no edema. NEUROLOGIC: Awake and alert. Follows simple command. MEDICATIONS: He is on Ambien 5 mg at bedtime p.r.n., sotalol 40 mg twice a day, diltiazem 30 mg four times a day, also on Cardizem CD which is on hold, Colace 100 mg twice a day, DuoNeb every 4 hour p.r.n., Eliquis 5 mg twice a day, cefepime 1 g IV every 12 hour, Megace 200 mg daily, MiraLax 17 g daily, prednisone 40 mg daily, Protonix 20 mg daily, Robitussin p.r.n. basis, IV fluid normal saline 75 mL/hour, Tessalon Perles 100 mg three times a day, Zithromax 250 mg daily. LABORATORY DATA: Shows hemoglobin 12.7, hematocrit 38.1, WBC 14.6, platelet count is 485. Sodium 135, potassium 5, chloride 99, bicarbonate 28, BUN 20, creatinine 0.7, glucose is 139, hemoglobin A1c is 6.7, calcium is 8.8, phosphorus 2.9, magnesium 2.3, AST 26, ALT 71, alk phos is 166. Albumin is 3.4. Microbiology, blood culture, urine culture, there is no growth. IMPRESSION AND PLAN: Chronic obstructive lung disease, small cell lung cancer with metastatic disease, paroxysmal atrial fibrillation, pulmonary infiltrate. Pulmonary point of view, doing okay. Continue antibiotics, bronchodilator, taper down steroids, out of bed to chair, physical therapy. Gastric prophylaxis, anticoagulation, fall precaution. Thank you and we will follow with you. Aura Yi MD
[2017-12-20] MEDS: Albuterol-Ipratrop 3 mg / 0.5 (3 ml) UD IH PRN ×4 (04:57→16:52)
[2017-12-20] MEDS: Pantoprazole 20 mg EC Tab PO SCH (05:15)
[2017-12-20 06:27] LABS: HEMOGLOBIN 12.1 g/dL (14.0-18.0); MEAN CELL VOLUME 85.3 fl (80.0-105.0); MEAN CORPUSCULAR HEMOGLOBIN 29.2 pg (25.0-35.0); MEAN CORPUSCULAR HGB CONC 34.2 g/dl (31.0-37.0); RBC 4.15 10^6/uL (3.5-6.1); RED CELL DISTRIBUTION WIDTH 15.6 % (11.5-14.5); WHITE BLOOD COUNT 17.6 10^3/ul (4.5-11.0)
[2017-12-20 06:42] LABS: ALBUMIN 3.1 g/dL (3.0-4.8); ALT/SGPT 58 U/L (7-56); AST/SGOT 25 U/L (17-59); BLOOD UREA NITROGEN 23 mg/dL (7-21); GFR NON-AFRICAN AMERICAN > 60
--- NOTE | 2017-12-20 06:51 | CP.PCM.PN ---
Subjective - Date & Time of Evaluation Date of Evaluation: 12/20/17 Time of Evaluation: 06:20 - Subjective Subjective: Ambulating to bathroom,awake, alert, feels okay,shortness of breath on exertion, Reason for consultation and follow up: Cardiac evaluation of rapid atrial fibrillation, history of Afib, stage IV lung cancer. Seen and examined by me and Dr. Orozco Objective - Vital Signs/Intake and Output Vital Signs (last 24 hours): Temp Pulse Resp BP Pulse Ox 97.4 F L 78 20 119/66 100 12/19/17 17:21 12/19/17 22:00 12/19/17 17:21 12/19/17 18:52 12/19/17 17:21 Intake and Output: 12/19/17 12/20/17 18:59 06:59 Intake Total 2200 Output Total 200 Balance 2000 - Medications Medications: Current Medications Albuterol/Ipratropium (Duoneb 3 Mg/0.5 Mg (3 Ml) Ud) 3 ml IH [id number] PRN PRN Reason: Shortness of Breath Last Admin: 12/20/17 04:57 Dose: 3 ml Apixaban (Eliquis) 5 mg PO BID [facility] PRN Reason: Protocol Last Admin: 12/19/17 18:52 Dose: 5 mg Azithromycin (Zithromax) 250 mg PO DAILY [facility] PRN Reason: Protocol Stop: 12/26/17 10:01 Last Admin: 12/19/17 11:02 Dose: 250 mg Benzonatate (Tessalon Perles) 100 mg PO TID [facility] Last Admin: 12/19/17 18:52 Dose: 100 mg Diltiazem HCl (Cardizem Cd) 120 mg PO DAILY [facility] Diltiazem HCl (Cardizem) 30 mg PO QID [facility] Last Admin: 12/19/17 23:18 Dose: 30 mg Docusate Sodium (Colace) 100 mg PO BID [facility] Last Admin: 12/19/17 18:52 Dose: 100 mg Guaifenesin/Dextromethorphan (Robitussin Dm) 5 ml PO Q4H PRN PRN Reason: Cough Last Admin: 12/19/17 18:53 Dose: 5 ml Cefepime HCl (Maxipime 1gm) 1 gm in 100 mls @ 100 mls/hr IVPB Q12 [facility] PRN Reason: Protocol Last Admin: 12/19/17 23:17 Dose: 100 mls/hr Sodium Chloride (Sodium Chloride 0.9%) 1,000 mls @ 75 mls/hr IV .[id number] [facility] Last Admin: 12/19/17 02:49 Dose: 75 mls/hr diltiaZEM IVPB 100mg in NS (Cardizem 100mg In Ns) 100 mls @ 10 mls/hr IV .Q10H [facility] PRN Reason: 10 MG/HR Megestrol Acetate (Megace) 200 mg PO DAILY [facility] Last Admin: 12/19/17 11:05 Dose: 200 mg Pantoprazole Sodium (Protonix Ec Tab) 20 mg PO 0600 [facility] Last Admin: 12/20/17 05:15 Dose: 20 mg Polyethylene Glycol (Miralax) 17 gm PO DAILY PRN PRN Reason: Constipation Prednisone (Prednisone Tab) 40 mg PO DAILY [facility] Sotalol HCl (Betapace) 40 mg PO BID [facility] Last Admin: 12/19/17 18:51 Dose: 40 mg Zolpidem Tartrate (Ambien) 5 mg PO HS PRN; Protocol PRN Reason: Insomnia Last Admin: 12/19/17 22:54 Dose: 5 mg - Labs Labs: 12/19/17 07:00 12/20/17 06:15 - Constitutional Appears: No Acute Distress - Eye Exam Eye Exam: Normal appearance - ENT Exam ENT Exam: Mucous Membranes Moist - Respiratory Exam Respiratory Exam: Decreased Breath Sounds, NORMAL BREATHING PATTERN Additional comments: nasal cannula - Cardiovascular Exam Cardiovascular Exam: REGULAR RHYTHM, +S1, +S2 Additional comments: telemetry NSR 70's right chest port - GI/Abdominal Exam GI & Abdominal Exam: Soft, Normal Bowel Sounds - Extremities Exam Additional comments: 1+edema - Neurological Exam Neurological Exam: Alert, Awake, Oriented x3 - Psychiatric Exam Psychiatric exam: Normal Affect - Skin Skin Exam: Dry, Warm Assessment and Plan - Assessment and Plan (Free Text) Assessment: A 76 year old male who came in to the ER due to productive cough. History of small cell carcinoma of the lung stage IV, A-fib and duodenal ulcer, recent pneumonia, former smoker. Patient recently undergone chemotherapy and radiation therapy. Follows up with Dr. Bullard. Cardiac consult was called due to rapid Atrial fibrillation. Cardizem bolus given. Now on NSR. Plan: Unable to sleep at night,Feeling okay Shortness of breath on exertion Telemetry NSR 70's, controlled heart rate Controlled blood pressure Cardiac status stable On Eliquis 5 mg BID,Cardizem CD 120 mg daily, Sotalol 40 mg BID Continue antibiotics per ID Pulmonary on consult Continue current treatment Continue current medications Will follow up Plan and treatment discussed with Dr. Orozco
[2017-12-20 07:37] VITALS: O2SAT 98
[2017-12-20] MEDS: Cefepime 1gm in NS 100ml 1 GM/100 ML BAG IVPB SCH (10:03)
[2017-12-20] MEDS: Megestrol Acetate 40 mg/ml Cup PO SCH (10:04)
--- NOTE | 2017-12-20 10:20 | CP.PCM.PN ---
<Jesus Contreras - Last Filed: 12/20/17 10:13> Subjective - Date & Time of Evaluation Date of Evaluation: 12/20/17 Time of Evaluation: 10:13 - Subjective Subjective: Patient seen and examined at bedside. Patient states he slept last night, but only for a few hours. Patient admits to feeling weak. Denies chest pain, shortness of breath, nausea, vomiting, diarrhea, fever, chills. Objective - Vital Signs/Intake and Output Vital Signs (last 24 hours): Temp Pulse Resp BP Pulse Ox 97.7 F 74 20 128/78 98 12/20/17 07:37 12/20/17 07:37 12/20/17 07:37 12/20/17 07:37 12/20/17 07:37 - Medications Medications: Current Medications Albuterol/Ipratropium (Duoneb 3 Mg/0.5 Mg (3 Ml) Ud) 3 ml IH [id number] PRN PRN Reason: Shortness of Breath Last Admin: 12/20/17 07:54 Dose: 3 ml Apixaban (Eliquis) 5 mg PO BID [facility] PRN Reason: Protocol Last Admin: 12/19/17 18:52 Dose: 5 mg Azithromycin (Zithromax) 250 mg PO DAILY [facility] PRN Reason: Protocol Stop: 12/26/17 10:01 Last Admin: 12/19/17 11:02 Dose: 250 mg Benzonatate (Tessalon Perles) 100 mg PO TID [facility] Last Admin: 12/19/17 18:52 Dose: 100 mg Diltiazem HCl (Cardizem Cd) 120 mg PO DAILY [facility] Diltiazem HCl (Cardizem) 30 mg PO QID [facility] Last Admin: 12/19/17 23:18 Dose: 30 mg Docusate Sodium (Colace) 100 mg PO BID [facility] Last Admin: 12/19/17 18:52 Dose: 100 mg Guaifenesin/Dextromethorphan (Robitussin Dm) 5 ml PO Q4H PRN PRN Reason: Cough Last Admin: 12/19/17 18:53 Dose: 5 ml Cefepime HCl (Maxipime 1gm) 1 gm in 100 mls @ 100 mls/hr IVPB Q12 [facility] PRN Reason: Protocol Last Admin: 12/19/17 23:17 Dose: 100 mls/hr diltiaZEM IVPB 100mg in NS (Cardizem 100mg In Ns) 100 mls @ 10 mls/hr IV .Q10H [facility] PRN Reason: 10 MG/HR Megestrol Acetate (Megace) 200 mg PO DAILY [facility] Last Admin: 12/19/17 11:05 Dose: 200 mg Pantoprazole Sodium (Protonix Ec Tab) 20 mg PO 0600 [facility] Last Admin: 12/20/17 05:15 Dose: 20 mg Polyethylene Glycol (Miralax) 17 gm PO DAILY PRN PRN Reason: Constipation Prednisone (Prednisone Tab) 40 mg PO DAILY [facility] Sotalol HCl (Betapace) 40 mg PO BID [facility] Last Admin: 12/19/17 18:51 Dose: 40 mg Zolpidem Tartrate (Ambien) 5 mg PO HS PRN; Protocol PRN Reason: Insomnia Last Admin: 12/19/17 22:54 Dose: 5 mg - Labs Labs: 12/20/17 06:15 12/20/17 06:15 - Constitutional Appears: Non-toxic, No Acute Distress - Head Exam Head Exam: ATRAUMATIC, NORMAL INSPECTION, NORMOCEPHALIC - ENT Exam ENT Exam: Mucous Membranes Moist - Respiratory Exam Respiratory Exam: Clear to Ausculation Bilateral, NORMAL BREATHING PATTERN - Cardiovascular Exam Cardiovascular Exam: Irregular Rhythm, +S1, +S2 - GI/Abdominal Exam GI & Abdominal Exam: Soft, Tenderness (Mild epigastric), Normal Bowel Sounds - Extremities Exam Extremities Exam: Normal Inspection. absent: Calf Tenderness, Pedal Edema - Neurological Exam Neurological Exam: Alert, Awake, CN II-XII Intact, Oriented x3 - Psychiatric Exam Psychiatric exam: Normal Affect, Normal Mood - Skin Skin Exam: Intact, Normal Color, Warm Assessment and Plan - Assessment and Plan (Free Text) Plan: 1. COPD exacerbation 2. Post-obstructive pneumonitis 3. 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 Hx of A-fib Patient currently on Cefepime and Zithromax, patient will be able to changed to oral Zithromax on discharge. White count elevated this AM, however patient has no fever and is culture negative. Patient is having his steroids tapered at this time by oncology, with plans for chemotherapy upon discharge. Will continue Sotalol and cardizem for rate control. Patient encouraged to work with physical therapy. We will continue current medical regimen and monitor closely. Diane, PGY-3 <Aguila Triana S - Last Filed: 12/21/17 20:50> Objective - Vital Signs/Intake and Output Vital Signs (last 24 hours): Temp Pulse Resp BP Pulse Ox 97.4 F L 80 20 120/72 98 12/20/17 16:34 12/20/17 16:34 12/20/17 16:34 12/20/17 16:34 12/20/17 16:34 - Labs Labs: 12/20/17 06:15 12/20/17 06:15 Assessment and Plan - Assessment and Plan (Free Text) Plan: Pt seen and examined. I have reviewed the note of the senior medical writer and agree with it. I have discussed the assessment and plan with the resident. I have reviewed the patient's labs and medications. Pt with small cell ca of lung. Pt complains of cough that is dry and insomnia. Pt is on steroids. Being followed by steroids and Abx. He is going to TCU for rehab.
--- NOTE | 2017-12-20 13:18 | CP.PCM.PN ---
Subjective - Date & Time of Evaluation Date of Evaluation: 12/20/17 Time of Evaluation: 13:17 - Subjective Subjective: Heme/Onc Progress Note for Dr. Bullard -- Doug Law DO PGY2 Patient seen and examined at bedside. No acute overnight events. Patient states that he would like to go to TCU rather than be discharged home. Patient denied CP, SOB, n/v/d, abdominal pain, fever, chills, AYALA, or dizziness. Objective - Vital Signs/Intake and Output Vital Signs (last 24 hours): Temp Pulse Resp BP Pulse Ox 97.7 F 74 20 128/78 98 12/20/17 07:37 12/20/17 10:08 12/20/17 07:37 12/20/17 10:08 12/20/17 07:37 - Medications Medications: Current Medications Albuterol/Ipratropium (Duoneb 3 Mg/0.5 Mg (3 Ml) Ud) 3 ml IH [id number] PRN PRN Reason: Shortness of Breath Last Admin: 12/20/17 07:54 Dose: 3 ml Apixaban (Eliquis) 5 mg PO BID [facility] PRN Reason: Protocol Last Admin: 12/20/17 10:03 Dose: 5 mg Azithromycin (Zithromax) 250 mg PO DAILY [facility] PRN Reason: Protocol Stop: 12/26/17 10:01 Last Admin: 12/20/17 10:06 Dose: 250 mg Benzonatate (Tessalon Perles) 100 mg PO TID [facility] Last Admin: 12/20/17 10:05 Dose: 100 mg Diltiazem HCl (Cardizem Cd) 120 mg PO DAILY [facility] Diltiazem HCl (Cardizem) 30 mg PO QID [facility] Last Admin: 12/20/17 10:08 Dose: 30 mg Docusate Sodium (Colace) 100 mg PO BID [facility] Last Admin: 12/20/17 10:03 Dose: 100 mg Guaifenesin/Dextromethorphan (Robitussin Dm) 5 ml PO Q4H PRN PRN Reason: Cough Last Admin: 12/19/17 18:53 Dose: 5 ml Cefepime HCl (Maxipime 1gm) 1 gm in 100 mls @ 100 mls/hr IVPB Q12 [facility] PRN Reason: Protocol Last Admin: 12/20/17 10:03 Dose: 100 mls/hr diltiaZEM IVPB 100mg in NS (Cardizem 100mg In Ns) 100 mls @ 10 mls/hr IV .Q10H [facility] PRN Reason: 10 MG/HR Megestrol Acetate (Megace) 200 mg PO DAILY [facility] Last Admin: 12/20/17 10:04 Dose: 200 mg Pantoprazole Sodium (Protonix Ec Tab) 20 mg PO 0600 [facility] Last Admin: 12/20/17 05:15 Dose: 20 mg Polyethylene Glycol (Miralax) 17 gm PO DAILY PRN PRN Reason: Constipation Prednisone (Prednisone Tab) 40 mg PO DAILY [facility] Last Admin: 12/20/17 10:05 Dose: 40 mg Sotalol HCl (Betapace) 40 mg PO BID [facility] Last Admin: 12/20/17 10:02 Dose: 40 mg Zolpidem Tartrate (Ambien) 5 mg PO HS PRN; Protocol PRN Reason: Insomnia Last Admin: 12/19/17 22:54 Dose: 5 mg - Labs Labs: 12/20/17 06:15 12/20/17 06:15 - Constitutional Appears: No Acute Distress - Head Exam Head Exam: NORMAL INSPECTION - Eye Exam Eye Exam: Normal appearance - ENT Exam ENT Exam: Normal Exam - Neck Exam Neck Exam: Normal Inspection - Respiratory Exam Respiratory Exam: Rhonchi. absent: Accessory Muscle Use, Decreased Breath Sounds, Rales, Wheezes - Cardiovascular Exam Cardiovascular Exam: RRR, +S1, +S2. absent: Gallop, Rubs, Murmur - GI/Abdominal Exam GI & Abdominal Exam: Soft. 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 Oncology consulted as patient is currently undergoing chemotherapy for his stage IV small cell lung cancer. Patient's hospital course was complicated by atrial fibrillation with rapid ventricular rate that required cardizem drip. However, patient has been transitioned to PO cardizem and sotolol, which has controlled his rate. Patient to be discharged to TCU per primary. Plan: - Can resume chemotherapy T// and hydration on F in TCU - PO prednisone - PO Cardizem and Sotolol for A-fib rate control, Eliquis for AC; further recs per Cardio - Abx per ID - Further management per primary Case discussed with attending. Doug Law DO PGY2
--- NOTE | 2017-12-20 15:57 | CP.PCM.PN ---
Subjective - Date & Time of Evaluation Date of Evaluation: 12/20/17 Time of Evaluation: 10:15 - Subjective Subjective: No fevers, not in distress, has some weakness but feeling a little better. Objective - Vital Signs/Intake and Output Vital Signs (last 24 hours): Temp Pulse Resp BP Pulse Ox 97.4 F L 94 H 20 119/66 100 12/19/17 17:21 12/20/17 06:00 12/19/17 17:21 12/19/17 18:52 12/19/17 17:21 - Medications Medications: Current Medications Albuterol/Ipratropium (Duoneb 3 Mg/0.5 Mg (3 Ml) Ud) 3 ml IH [id number] PRN PRN Reason: Shortness of Breath Last Admin: 12/20/17 04:57 Dose: 3 ml Apixaban (Eliquis) 5 mg PO BID [facility] PRN Reason: Protocol Last Admin: 12/19/17 18:52 Dose: 5 mg Azithromycin (Zithromax) 250 mg PO DAILY [facility] PRN Reason: Protocol Stop: 12/26/17 10:01 Last Admin: 12/19/17 11:02 Dose: 250 mg Benzonatate (Tessalon Perles) 100 mg PO TID [facility] Last Admin: 12/19/17 18:52 Dose: 100 mg Diltiazem HCl (Cardizem Cd) 120 mg PO DAILY [facility] Diltiazem HCl (Cardizem) 30 mg PO QID [facility] Last Admin: 12/19/17 23:18 Dose: 30 mg Docusate Sodium (Colace) 100 mg PO BID [facility] Last Admin: 12/19/17 18:52 Dose: 100 mg Guaifenesin/Dextromethorphan (Robitussin Dm) 5 ml PO Q4H PRN PRN Reason: Cough Last Admin: 12/19/17 18:53 Dose: 5 ml Cefepime HCl (Maxipime 1gm) 1 gm in 100 mls @ 100 mls/hr IVPB Q12 [facility] PRN Reason: Protocol Last Admin: 12/19/17 23:17 Dose: 100 mls/hr Sodium Chloride (Sodium Chloride 0.9%) 1,000 mls @ 75 mls/hr IV .[id number] [facility] Last Admin: 12/19/17 02:49 Dose: 75 mls/hr diltiaZEM IVPB 100mg in NS (Cardizem 100mg In Ns) 100 mls @ 10 mls/hr IV .Q10H [facility] PRN Reason: 10 MG/HR Megestrol Acetate (Megace) 200 mg PO DAILY [facility] [place] Last Admin: 12/19/17 11:05 Dose: 200 mg Pantoprazole Sodium (Protonix Ec Tab) 20 mg PO 0600 [facility] Last Admin: 12/20/17 05:15 Dose: 20 mg Polyethylene Glycol (Miralax) 17 gm PO DAILY PRN PRN Reason: Constipation Prednisone (Prednisone Tab) 40 mg PO DAILY [facility] Sotalol HCl (Betapace) 40 mg PO BID [facility] Last Admin: 12/19/17 18:51 Dose: 40 mg Zolpidem Tartrate (Ambien) 5 mg PO HS PRN; Protocol PRN Reason: Insomnia Last Admin: 12/19/17 22:54 Dose: 5 mg - Labs Labs: 12/19/17 07:00 12/20/17 06:15 - Constitutional Appears: Chronically Ill - Head Exam Head Exam: NORMAL INSPECTION - Respiratory Exam Respiratory Exam: Decreased Breath Sounds - Cardiovascular Exam Cardiovascular Exam: +S1, +S2 - GI/Abdominal Exam GI & Abdominal Exam: Soft. absent: Tenderness Assessment and Plan - Assessment and Plan (Free Text) Plan: Assessment Right sided HCAP, slowly improving S/P neutropenia without fever small cell lung cancer atrial fibrillation significant smoking history S/P port-a-cath placement Plan continue Cefepime and Zithromax day 5 for 4-7 days; by tomorrow, can switch to just PO Zithromax to complete the 7 days (since PCT is less than 0.5, cultures are negative) overall prognosis is poor
[2017-12-20 16:34] VITALS: BP 120/72; PULSE 80; TEMP 97.4
--- NOTE | 2017-12-20 19:29 | PN ---
Copied To: Aura Yi MD Attending MD: Aura Yi MD DATE: 12/20/2017 PULMONARY PROGRESS NOTE REFERRING PHYSICIAN: Yesenia Christianson MD SUBJECTIVE: The patient is sitting up in the bed. Night was unremarkable. Did ambulate on the floor. Breathing is improved. Decreased cough and shortness breath. No chest pain. No nausea, no vomiting, no diarrhea. No leg pain or leg swelling. OBJECTIVE: GENERAL: In no acute distress. VITAL SIGNS: Temperature is 98, heart rate is 74, respiratory rate is 20, blood pressure 128/78, pulse ox 98% on room air. HEENT: Moist mucous membranes. No ulcer or thrush noted. NECK: Supple. No JVD. LUNGS: A few scattered rhonchi. HEART: S1 and S2. ABDOMEN: Soft, nontender. No organomegaly. EXTREMITIES: No edema. NEUROLOGIC: Awake, alert, and follows simple command. MEDICATIONS: The patient is on Ambien 5 mg at bedtime p.r.n., sotalol 40 mg twice a day, Cardizem 30 mg four times a day, Colace 100 mg twice a day, DuoNeb every 4 hours p.r.n., Eliquis 5 mg twice a day, cefepime 1 g IV every 12 hours, Megace 200 mg daily, MiraLax 17 g daily, prednisone 40 mg daily, Protonix 20 mg daily, Robitussin 5 mL every 4 hours p.r.n., Tessalon Perles 100 mg three times a day, Zithromax 250 mg daily. LABORATORY DATA: Shows hemoglobin 12.1, hematocrit 35.4, WBC 17.6, and platelet count is 449. Sodium 134, potassium 4.5, chloride 99, bicarbonate 28. BUN 23, creatinine 0.6. Glucose 130. Calcium 9. AST 25, ALT 58, alk phos is 144. Albumin is 3.1. Microbiology: Blood culture and urine culture, there is no growth. IMPRESSION AND PLAN: Chronic obstructive lung disease, small cell lung cancer with extensive disease and metastases, paroxysmal atrial fibrillation, pulmonary infiltrate. Pulmonary point of view, doing better. We will decrease prednisone to 30 mg daily. Continue antibiotics. Gastric prophylaxis and DVT prophylaxis. Fall precaution. Thank you and we will follow with you. Aura Yi MD [facility] # [id number]
== END 2017-12-20 18:25 | DRG 194 ==
LOC: ED 05:57 → ERH 09:26 → 2RSO 11:12 → 3RNO 15:54
PROVIDERS: ADMIT Internal Medicine; ATTEND Internal Medicine Nephrology
DX: J18.9 Pneumonia, unspecified organism (principal); J44.1 Chronic obstructive pulmonary disease with (acute) exacerbation; C34.90 Malignant neoplasm of unspecified part of unspecified bronchus or lung; C78.7 Secondary malignant neoplasm of liver and intrahepatic bile duct; C79.51 Secondary malignant neoplasm of bone; C7A.8 Other malignant neuroendocrine tumors; I47.1 Supraventricular tachycardia; R64 Cachexia; J44.0 Chronic obstructive pulmonary disease with (acute) lower respiratory infection; E86.0 Dehydration; D70.9 Neutropenia, unspecified; I50.9 Heart failure, unspecified; D64.9 Anemia, unspecified; I48.0 Paroxysmal atrial fibrillation; I48.2 Chronic atrial fibrillation; Y95 Nosocomial condition; R62.7 Adult failure to thrive; R59.0 Localized enlarged lymph nodes; R19.7 Diarrhea, unspecified; T47.4X5A Adverse effect of other laxatives, initial encounter; Z68.20 Body mass index [BMI] 20.0-20.9, adult; Z79.01 Long term (current) use of anticoagulants; Z87.11 Personal history of peptic ulcer disease; Z87.891 Personal history of nicotine dependence

== ENCOUNTER 2017-12-20 18:25 | Inpatient (IN) | payer OTHER ==
[2017-12-20 18:50] VITALS: BMI 21.5
[2017-12-20] MEDS: Albuterol-Ipratrop 3 mg / 0.5 (3 ml) UD IH SCH (19:35)
[2017-12-20] MEDS: guaiFENesin DM 100 mg-10 mg/5 ml UD PO PRN (20:42)
[2017-12-21] MEDS: Albuterol-Ipratrop 3 mg / 0.5 (3 ml) UD IH SCH ×7 (00:22→23:24)
[2017-12-21] MEDS: Pantoprazole 20 mg EC Tab PO SCH (05:34)
[2017-12-21] MEDS: Cefepime 1gm in NS 100ml 1 GM/100 ML BAG IVPB SCH ×2 (05:34→18:18)
[2017-12-21] MEDS: guaiFENesin DM 100 mg-10 mg/5 ml UD PO PRN ×2 (05:34→23:05)
[2017-12-21] MEDS ORDERED: Pantoprazole 40 mg EC Tab PO SCH (06:30)
[2017-12-21 07:52] LABS: HEMOGLOBIN 12.1 g/dL (14.0-18.0); MEAN CELL VOLUME 84.9 fl (80.0-105.0); MEAN CORPUSCULAR HEMOGLOBIN 28.6 pg (25.0-35.0); MEAN CORPUSCULAR HGB CONC 33.7 g/dl (31.0-37.0); MEAN PLATELET VOLUME 8.8 fl (7.0-11.0); RBC 4.23 10^6/uL (3.5-6.1); RED CELL DISTRIBUTION WIDTH 15.8 % (11.5-14.5); WHITE BLOOD COUNT 15.5 10^3/ul (4.5-11.0)
[2017-12-21 08:50] LABS: ALT/SGPT 49 U/L (7-56); AST/SGOT 54 U/L (17-59); BLOOD UREA NITROGEN 23 mg/dL (7-21); CALCIUM 8.7 mg/dL (8.4-10.5); GFR NON-AFRICAN AMERICAN > 60
[2017-12-21] MEDS: POLYETHYLENE GLYCOL 3350 17 GM/Dose PACKET PO PRN (10:13)
--- NOTE | 2017-12-21 16:59 | CP.PCM.CON ---
History of Present Illness - History of Present Illness History of Present Illness: 76 year old male with PMH of small cell lung cancer, atrial fibrillation, significant smoking history, S/P port-a-cath placement, S/P neutropenia [place] [facility] [place] of [place] and SOB and was apparently found to have right sided HCAP. He has been on antibiotics and has been doing well and is now transferred to [facility] for continued medical therapy and physical rehab. Infectious Diseases consult is requested to continue his antibiotics. He is currently comfortable in bed, no fevers or chills, no nausea or vomiting, no chest pain, no SOB at rest, no abdominal pain, no diarrhea, no dysuria. Review of Systems - Review of Systems All systems: reviewed and no additional remarkable complaints except (as per HPI ) Past Patient History - Infectious Disease Hx of Infectious Diseases: None - Tetanus Immunizations Tetanus Immunization: Unknown - Past Social History Smoking Status: Unknown If Ever Smoked - PULMONARY Hx Lung Cancer: Yes (on chemotherapy) - HEENT Hx HEENT Problems: Yes (wears eyeglasses) - HEMATOLOGICAL/ONCOLOGICAL Hx Blood Transfusions: Yes Hx Blood Transfusion Reaction: No - MUSCULOSKELETAL/RHEUMATOLOGICAL Hx Falls: No - GASTROINTESTINAL Hx Gastrointestinal Disorders: No - GENITOURINARY/GYNECOLOGICAL Hx Genitourinary Disorders: No Hx Reproductive Disorders: No - PSYCHIATRIC Hx Substance Use: No - SURGICAL HISTORY Other/Comment: shrapnel removed from left side of neck and right leg 1965 while serving for [employer] - ANESTHESIA Hx Anesthesia: No Hx Anesthesia Reactions: No Hx Malignant Hyperthermia: No Meds Allergies/Adverse Reactions: Allergies Allergy/AdvReac Type Severity Reaction Status Date / Time No Known Allergies Allergy Unverified 11/23/17 21:06 - Medications Medications: Current Medications Albuterol/Ipratropium (Duoneb 3 Mg/0.5 Mg (3 Ml) Ud) 3 ml IH [id number] [facility] PRN Reason: Protocol Last Admin: 12/21/17 04:35 Dose: 3 ml Apixaban (Eliquis) 5 mg PO BID [facility] PRN Reason: Protocol Azithromycin (Zithromax) 250 mg PO DAILY [facility] PRN Reason: Protocol Benzonatate (Tessalon Perles) 100 mg PO TID [facility] PRN Reason: Protocol Diltiazem HCl (Cardizem) 30 mg PO QID [facility] PRN Reason: Protocol Last Admin: 12/20/17 22:03 Dose: 30 mg Docusate Sodium (Colace) 100 mg PO BID [facility] PRN Reason: Protocol Guaifenesin/Dextromethorphan (Robitussin Dm) 5 ml PO Q4H PRN; Protocol PRN Reason: Cough Last Admin: 12/21/17 05:34 Dose: 5 ml Cefepime HCl (Maxipime 1gm) 1 gm in 100 mls @ 100 mls/hr IVPB 0600,1800 [facility] PRN Reason: Protocol Last Admin: 12/21/17 05:34 Dose: 100 mls/hr Megestrol Acetate (Megace) 40 mg PO 0800 [facility] PRN Reason: Protocol Pantoprazole Sodium (Protonix Ec Tab) 20 mg PO 0600 [facility] Last Admin: 12/21/17 05:34 Dose: 20 mg Polyethylene Glycol (Miralax) 17 gm PO DAILY PRN; Protocol PRN Reason: Constipation Prednisone (Prednisone Tab) 40 mg PO 0800 [facility] PRN Reason: Protocol Sotalol HCl (Betapace) 40 mg PO BID [facility] PRN Reason: Protocol Zolpidem Tartrate (Ambien) 5 mg PO HS PRN; Protocol PRN Reason: Insomnia Last Admin: 12/20/17 22:13 Dose: 5 mg Physical Exam - Constitutional Appears: Cachectic, Chronically Ill - Head Exam Head Exam: NORMAL INSPECTION - Respiratory Exam Respiratory Exam: Decreased Breath Sounds - Cardiovascular Exam Cardiovascular Exam: +S1, +S2 - GI/Abdominal Exam GI & Abdominal Exam: Soft. absent: Tenderness Results - Vital Signs Recent Vital Signs: Last Vital Signs Temp 97.9 F 12/20/17 19:49 Pulse 84 12/20/17 22:03 Resp 22 12/20/17 19:49 BP 126/76 12/20/17 22:03 Pulse Ox - Labs Result Diagrams: 12/21/17 07:35 12/21/17 07:35 Assessment & Plan - Assessment and Plan (Free Text) Plan: Assessment Right sided HCAP, slowly improving S/P neutropenia without fever small cell lung cancer atrial fibrillation significant smoking history S/P port-a-cath placement Plan continue Cefepime and Zithromax day 6 for 4-7 days overall prognosis is poor
--- NOTE | 2017-12-21 22:00 | CON ---
DATE: 12/21/2017 PULMONARY CONSULTATION REFERRING PHYSICIAN: Dr. Aguila Triana REASON FOR CONSULTATION: Chronic lung disease, lung cancer status post radiation and chemotherapy, shortness of breath. HISTORY OF PRESENT ILLNESS: This is a 76 years old gentleman with known history of unresectable lung cancer, has been on radiation and chemotherapy, chronic obstructive lung disease, history of paroxysmal atrial fibrillation, treated for healthcare-associated pneumonia, presently admitted to [facility] for continued care, complaining about some shortness of breath. No chest pain. No nausea, no vomiting, no diarrhea. There is trace ankle swelling. PAST MEDICAL HISTORY: As per history of present illness. ALLERGIES: NONE KNOWN. SOCIAL HISTORY: Ex-smoker. Denies any alcohol use. FAMILY HISTORY: No significant cardiopulmonary disease reported. MEDICATIONS: He is on Ambien 5 mg at bedtime p.r.n., sotalol 40 mg twice a day, Cardizem 30 mg four times a day, Colace 100 mg twice a day, DuoNeb every 4 hours, Eliquis 5 mg twice a day, cefepime 1 g twice a day, Megace mg daily, MiraLax 17 g daily, prednisone is 40 mg daily, Protonix 20 mg daily, Guaifenesin DM 5 mL every 4 hours p.r.n., Tessalon Perles 100 mg three times a day, and Zithromax 240 mg daily. REVIEW OF SYSTEMS: No headache, no rhinitis. Not much cough, but short of breath. No chest pain. No nausea, no vomiting, no diarrhea. No leg pain or leg swelling. PHYSICAL EXAMINATION: GENERAL: No acute distress. VITAL SIGNS: Temperature is 98, heart rate is 83, respiratory rate is 22, blood pressure 108/78. HEENT: Moist mucous membrane. No ulcer or thrush noted. NECK: Supple. No JVD. LUNGS: Have scattered rhonchi. HEART: S1 and S2. ABDOMEN: Soft, nontender. No organomegaly. EXTREMITIES: No edema. NEUROLOGIC: Awake and alert, follows simple commands. LABORATORY DATA: Shows hemoglobin 12.1, hematocrit 35.9, WBC 15.5, platelet count is 373. Sodium 133, potassium 4.2, chloride 99, bicarbonate 28, BUN 23, creatinine 0.6, glucose 111, calcium 8.7, total bili 0.4, AST 54, ALT 49, alk phos is 133, albumin is 3. IMPRESSION AND PLAN: Unresectable lung cancer, requiring radiation and chemotherapy, chronic obstructive lung disease, history of paroxysmal atrial fibrillation, has a right-sided [id number]. I agree with the present management. We will get procalcitonin and ProBNP in the morning. Continue inhaled bronchodilator, p.o. prednisone. Being followed by Infectious Diseases. Gastric and deep venous thrombosis prophylaxis. He is in sinus rhythm now, on anticoagulation. Thank you and we will follow with you. Aura Yi MD
[2017-12-22] MEDS ORDERED: Alum-Mag Hydrox-Simethicone Susp (30 mL) PO ONE (01:19)
[2017-12-22] MEDS: Albuterol-Ipratrop 3 mg / 0.5 (3 ml) UD IH SCH ×5 (03:02→20:45)
--- NOTE | 2017-12-22 04:42 | CON ---
DATE: 12/21/2017 This is [facility] consult on TCU. For Dr. Bullard. CHIEF COMPLAINT: Pneumonia. 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 The patient is now resting comfortably, participating in TCU protocols with his resumption of chemotherapy on hold, until he recuperates from his present medical problems. He is otherwise in no acute distress. He did have an episode of rapid AFib for which he was treated by Dr. Orozco with good effect and we will continue these recommendations. PAST MEDICAL HISTORY: The patient's past medical history is significant for stage IV metastatic lung cancer, small cell with lytic lesions, liver metastasis status post 10 radiation treatments with chemotherapy now to continue once he recuperates, COPD, cachexia of malignancy, history of pneumothorax, paroxysmal atrial fibrillation, insomnia, gastric ulcer, gastritis, cough, anticoagulation on Eliquis. ALLERGIES: NO KNOWN ALLERGIES. MEDICATIONS: Medicines prior to admission include sotalol, DuoNeb, Eliquis, Megace, MiraLax, oxycodone, prednisone, Robitussin DM and Tessalon Perles. FAMILY HISTORY AND SOCIAL HISTORY: Former smoker, quit 5 years ago. Occasional beer. REVIEW OF SYSTEMS: Twelve-point review of systems was done, negative to questioning except as above. OBJECTIVE PHYSICAL EXAMINATION VITAL SIGNS: Temperature is 98.4, pulse 83, respirations 18, blood pressure 108/78 with pulse ox of 97%. HEENT: Unremarkable. NECK: Supple. HEART: Regular rate. LUNGS: Rare rhonchi. ABDOMEN: Soft, nontender. EXTREMITIES: Faint +1 edema. NEUROLOGIC: Awake, alert and oriented. LABORATORY DATA: The patient's labs were done. White blood cell count of 15.5, hemoglobin 12.1, hematocrit of 35.9, platelet count of 373,000. His chem metabolic panel showed BUN of 23, creatinine of 0.6, alk phos 133, otherwise normal chem metabolic panel. The patient's most recent EKG was done 2 days prior on 12/19/2017 showed normal sinus rhythm. ASSESSMENT: The assessment for this patient is that of deconditioning, right-sided healthcare-associated pneumonia hospital-acquired, small cell neuroendocrine cancer of the lung, stage IV metastatic changes, cachexia of malignancy, right-sided pneumonia, atrial fibrillation, chronic obstructive pulmonary disease exacerbation, history of duodenal ulcer, neutropenic sepsis, history of lytic lesion of T7, history of pneumothorax. PLAN: The plan for this patient is reconditioning, continue his medications including Ambien, sotalol, Cardizem, Colace, DuoNeb, Eliquis, cefepime, Megace, MiraLax, prednisone, Protonix, Robitussin DM, Tessalon Perles and Zithromax. Prognosis for this patient is guarded. We will monitor clinically with labs. This is a complex patient with a comprehensive medically necessary and appropriate visit carried out in excess of 40 minutes. Erasmo Briggs MD
[2017-12-22] MEDS ORDERED: Albuterol-Ipratrop 3 mg / 0.5 (3 ml) UD IH STA (05:13)
[2017-12-22] MEDS: Cefepime 1gm in NS 100ml 1 GM/100 ML BAG IVPB SCH (05:42)
[2017-12-22] MEDS: Pantoprazole 20 mg EC Tab PO SCH (05:43)
--- NOTE | 2017-12-22 08:50 | HP ---
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 Bullard for his treatment. He was on the hospital site, has been transferred to transitional care unit for gait dysfunction and deconditioning. The patient was having a productive cough, was treated with antibiotic. He has been undergoing chemotherapy and radiation with Dr. Bullard and Dr. Lee. The patient states he does have difficulty breathing at times. He has a cough that is dry mostly. He is being followed by Dr. Yi from Pulmonary. He has no fevers. He states he has difficulty in sleeping. He has no headaches or dizziness. No nausea, no vomiting. Patient has weakness and fatigue. He has difficulty with ambulating at times. He states he gets short of breath with minimal exertion. He has difficulty in sleeping. PAST MEDICAL HISTORY: GI ulcer, small cell lung cancer, and AFib. FAMILY HISTORY: Heart disease. SOCIAL HISTORY: Former smoker. Denies alcohol. HOME MEDICATIONS: Have been reviewed. ALLERGIES: NO KNOWN DRUG ALLERGIES. PHYSICAL EXAMINATION: VITAL SIGNS: He has a temperature of 97.9, pulse of 84, and blood pressure 126/76. GENERAL: The patient lying in bed, uncomfortable, and in no acute distress. HEENT: Atraumatic and normocephalic. Anicteric sclerae. Moist mucosa. [place] conjunctivae. No oral lesions. NECK: No JVD, anterior and posterior adenopathy, thyromegaly or bruits. CARDIOVASCULAR: S1 and S2 regular. No murmur, rubs or gallop. LUNGS: Clear to auscultation bilaterally. No wheezes, rales or rhonchi. ABDOMEN: Bowel sounds are positive. Soft, nontender and nondistended. No hepatosplenomegaly. No rebound and no guarding EXTREMITIES: No cyanosis, clubbing, or edema. NEUROLOGIC: No facial asymmetry. Tongue is midline. No uvula deviation. Power is 5/5 upper extremity and lower extremity. Sensation intact in upper extremity and lower extremity. PSYCHIATRIC: He is awake, alert and oriented x3. No anxiety or depression. He has normal affect. GENITOURINARY: No CVA tenderness. VASCULAR: 2+ pulses in the carotid pulses and pedal pulses. SKIN: No erythema or nodules SPINE: Shows normal curvature. ASSESSMENT: 1. Hospital-acquired pneumonia. 2. Small cell lung cancer stage IV. 3. History of atrial fibrillation, now resolved. 4. Right . PLAN: The patient is on sotalol for atrial fibrillation. He is on Cardizem as well. He is being followed by Dr. Guerra, Dr. Yi as well as Dr. Bullard. The patient is on Eliquis for atrial fibrillation. He is on Megace for his appetite. He is on MiraLax for constipation. He is on prednisone. He is being followed. He is on Zithromax. Patient is on a regular diet. I will increase his Ambien to 10 mg because he continues to complain of having difficulty in sleeping. Aguila Triana MD
[2017-12-22] MEDS: guaiFENesin DM 100 mg-10 mg/5 ml UD PO PRN ×2 (10:04→21:26)
--- NOTE | 2017-12-22 10:36 | CP.PCM.PN ---
<Jesus Contreras - Last Filed: 12/22/17 10:32> Subjective - Date & Time of Evaluation Date of Evaluation: 12/22/17 Time of Evaluation: 10:32 - Subjective Subjective: Patient seen and examined at bedside. Patient with no acute events overnight. Admits to shortness of breath intermittently. Denies chest pain, nausea, vomiting, diarrhea, fever, chills. Objective - Vital Signs/Intake and Output Vital Signs (last 24 hours): Temp Pulse Resp BP Pulse Ox 97.8 F 83 20 118/75 99 12/22/17 06:00 12/22/17 10:08 12/22/17 06:00 12/22/17 10:08 12/22/17 06:00 - Medications Medications: Current Medications Albuterol/Ipratropium (Duoneb 3 Mg/0.5 Mg (3 Ml) Ud) 3 ml IH [id number] ZARI PRN Reason: Protocol Last Admin: 12/22/17 07:13 Dose: 3 ml Apixaban (Eliquis) 5 mg PO BID ZARI PRN Reason: Protocol Last Admin: 12/22/17 10:14 Dose: 5 mg Azithromycin (Zithromax) 250 mg PO DAILY ZARI PRN Reason: Protocol Last Admin: 12/22/17 10:14 Dose: 250 mg Benzonatate (Tessalon Perles) 100 mg PO TID ZARI PRN Reason: Protocol Last Admin: 12/22/17 10:14 Dose: 100 mg Diltiazem HCl (Cardizem) 30 mg PO QID ZARI PRN Reason: Protocol Last Admin: 12/22/17 10:08 Dose: 30 mg Docusate Sodium (Colace) 100 mg PO BID ZARI PRN Reason: Protocol Last Admin: 12/22/17 10:08 Dose: 100 mg Guaifenesin/Dextromethorphan (Robitussin Dm) 5 ml PO Q4H PRN; Protocol PRN Reason: Cough Last Admin: 12/22/17 10:04 Dose: 5 ml Cefepime HCl (Maxipime 1gm) 1 gm in 100 mls @ 100 mls/hr IVPB 0600,1800 ZARI PRN Reason: Protocol Last Admin: 12/22/17 05:42 Dose: 100 mls/hr Megestrol Acetate (Megace) 40 mg PO 0800 ZARI PRN Reason: Protocol Last Admin: 12/22/17 08:38 Dose: 40 mg Pantoprazole Sodium (Protonix Ec Tab) 20 mg PO 0600 ZARI Last Admin: 12/22/17 05:43 Dose: 20 mg Polyethylene Glycol (Miralax) 17 gm PO DAILY PRN; Protocol PRN Reason: Constipation Last Admin: 12/21/17 10:13 Dose: 17 gm Prednisone (Prednisone Tab) 40 mg PO 0800 ZARI PRN Reason: Protocol Last Admin: 12/22/17 08:38 Dose: 40 mg Sotalol HCl (Betapace) 40 mg PO BID ZARI PRN Reason: Protocol Last Admin: 12/22/17 10:07 Dose: 40 mg Zolpidem Tartrate (Ambien) 5 mg PO HS PRN; Protocol PRN Reason: Insomnia Last Admin: 12/21/17 23:05 Dose: 5 mg - Labs Labs: 12/21/17 07:35 12/21/17 07:35 - Constitutional Appears: Non-toxic, No Acute Distress, In Acute Distress - Head Exam Head Exam: ATRAUMATIC, NORMAL INSPECTION, NORMOCEPHALIC - ENT Exam ENT Exam: Mucous Membranes Dry - Respiratory Exam Respiratory Exam: Clear to Ausculation Bilateral, NORMAL BREATHING PATTERN - Cardiovascular Exam Cardiovascular Exam: RRR, +S1, +S2 - GI/Abdominal Exam GI & Abdominal Exam: Soft, Normal Bowel Sounds. absent: Tenderness - Extremities Exam Extremities Exam: Pedal Edema. absent: Tenderness - Neurological Exam Neurological Exam: Alert, Awake, CN II-XII Intact, Oriented x3 - Psychiatric Exam Psychiatric exam: Normal Affect, Normal Mood - Skin Skin Exam: Intact, Normal Color, Warm Assessment and Plan - Assessment and Plan (Free Text) Plan: 1. Hospital acquired pneumonia 2. Small cell lung cancer stage IV 3. Weakness 4. Hx of afib Patient is currently on Azithromycin and Cefepime. Patient is being followed by ID. Patient is currently being followed by Oncology, will plan to have chemotherapy as outpatient. Patient is on Eliquis for A-fib. Patient will be kept on Ambien to aid in sleep. Patient will continue with physical therapy. Will continue to monitor closely. Diane, PGY-3 <Aguila Triana - Last Filed: 12/22/17 20:10> Objective - Vital Signs/Intake and Output Vital Signs (last 24 hours): Temp Pulse Resp BP Pulse Ox 97.5 F L 83 21 108/71 99 12/22/17 10:00 12/22/17 14:45 12/22/17 10:00 12/22/17 17:46 12/22/17 14:45 - Medications Medications: Current Medications Albuterol/Ipratropium (Duoneb 3 Mg/0.5 Mg (3 Ml) Ud) 3 ml IH [id number] ZARI PRN Reason: Protocol Last Admin: 12/22/17 15:40 Dose: 3 ml Apixaban (Eliquis) 5 mg PO BID ZARI PRN Reason: Protocol Last Admin: 12/22/17 17:47 Dose: 5 mg Azithromycin (Zithromax) 250 mg PO DAILY ZARI PRN Reason: Protocol Last Admin: 12/22/17 10:14 Dose: 250 mg Benzonatate (Tessalon Perles) 100 mg PO TID ZARI PRN Reason: Protocol Last Admin: 12/22/17 17:47 Dose: 100 mg Diltiazem HCl (Cardizem) 30 mg PO QID ZARI PRN Reason: Protocol Last Admin: 12/22/17 17:46 Dose: 30 mg Docusate Sodium (Colace) 100 mg PO BID ZARI PRN Reason: Protocol Last Admin: 12/22/17 17:46 Dose: 100 mg Guaifenesin/Dextromethorphan (Robitussin Dm) 5 ml PO Q4H PRN; Protocol PRN Reason: Cough Last Admin: 12/22/17 10:04 Dose: 5 ml Megestrol Acetate (Megace) 40 mg PO 0800 ZARI PRN Reason: Protocol Last Admin: 12/22/17 08:38 Dose: 40 mg Pantoprazole Sodium (Protonix Ec Tab) 20 mg PO 0600 ZARI Last Admin: 12/22/17 05:43 Dose: 20 mg Polyethylene Glycol (Miralax) 17 gm PO DAILY PRN; Protocol PRN Reason: Constipation Last Admin: 12/21/17 10:13 Dose: 17 gm Prednisone (Prednisone Tab) 40 mg PO 0800 ZARI PRN Reason: Protocol Last Admin: 12/22/17 08:38 Dose: 40 mg Sotalol HCl (Betapace) 40 mg PO BID ZARI PRN Reason: Protocol Last Admin: 12/22/17 17:45 Dose: 40 mg Zolpidem Tartrate (Ambien) 10 mg PO HS PRN; Protocol PRN Reason: Insomnia - Labs Labs: 12/21/17 07:35 12/21/17 07:35 Assessment and Plan - Assessment and Plan (Free Text) Plan: Pt seen and examined. I have reviewed the note of the medical case manager and agree with it. I have discussed the assessment and plan with the resident. I have reviewed the patient's labs and medications. Pt with HCAP and on Abx. He is being followed by Oncology. Pt gets SOB with exertion. He will need to continue with chemo as outpt. Pt is on Eliquis for A fib. I have increased his Ambien for insomnia.
--- NOTE | 2017-12-22 12:54 | RAD ---
Date of service: 12/21/2017 HISTORY: lung cancer COMPARISON: 12/15/2017. Single-view chest. 12/15/2017 CT thorax FINDINGS: LUNGS: Interval improvement in the upper middle and lower lobe infiltrates identified previously. Residual findings are most prominent in the right upper lobe. PLEURA: No significant pleural effusion identified, no pneumothorax apparent. CARDIOVASCULAR: No radiographic findings to suggest acute or significant cardiovascular disease. Venous access catheter in stable, satisfactory position. OSSEOUS STRUCTURES: No significant abnormalities. VISUALIZED UPPER ABDOMEN: Normal. OTHER FINDINGS: None. IMPRESSION: Interval improvement without resolution of right lung infiltrates.
--- NOTE | 2017-12-22 15:13 | CP.PCM.PN ---
Subjective - Date & Time of Evaluation Date of Evaluation: 12/22/17 Time of Evaluation: 14:15 - Subjective Subjective: Feeling better, no fevers, no SOB at rest. Objective - Vital Signs/Intake and Output Vital Signs (last 24 hours): Temp Pulse Resp BP Pulse Ox 97.8 F 83 20 118/75 99 12/22/17 06:00 12/22/17 10:08 12/22/17 06:00 12/22/17 10:08 12/22/17 06:00 - Medications Medications: Current Medications Albuterol/Ipratropium (Duoneb 3 Mg/0.5 Mg (3 Ml) Ud) 3 ml IH [id number] ZARI PRN Reason: Protocol Last Admin: 12/22/17 07:13 Dose: 3 ml Apixaban (Eliquis) 5 mg PO BID ZARI PRN Reason: Protocol Last Admin: 12/22/17 10:14 Dose: 5 mg Azithromycin (Zithromax) 250 mg PO DAILY ZARI PRN Reason: Protocol Last Admin: 12/22/17 10:14 Dose: 250 mg Benzonatate (Tessalon Perles) 100 mg PO TID ZARI PRN Reason: Protocol Last Admin: 12/22/17 10:14 Dose: 100 mg Diltiazem HCl (Cardizem) 30 mg PO QID ZARI PRN Reason: Protocol Last Admin: 12/22/17 10:08 Dose: 30 mg Docusate Sodium (Colace) 100 mg PO BID ZARI PRN Reason: Protocol Last Admin: 12/22/17 10:08 Dose: 100 mg Guaifenesin/Dextromethorphan (Robitussin Dm) 5 ml PO Q4H PRN; Protocol PRN Reason: Cough Last Admin: 12/22/17 10:04 Dose: 5 ml Cefepime HCl (Maxipime 1gm) 1 gm in 100 mls @ 100 mls/hr IVPB 0600,1800 ZARI PRN Reason: Protocol Last Admin: 12/22/17 05:42 Dose: 100 mls/hr Megestrol Acetate (Megace) 40 mg PO 0800 ZARI PRN Reason: Protocol Last Admin: 12/22/17 08:38 Dose: 40 mg Pantoprazole Sodium (Protonix Ec Tab) 20 mg PO 0600 ZARI Last Admin: 12/22/17 05:43 Dose: 20 mg Polyethylene Glycol (Miralax) 17 gm PO DAILY PRN; Protocol PRN Reason: Constipation Last Admin: 12/21/17 10:13 Dose: 17 gm Prednisone (Prednisone Tab) 40 mg PO 0800 ZARI PRN Reason: Protocol Last Admin: 12/22/17 08:38 Dose: 40 mg Sotalol HCl (Betapace) 40 mg PO BID ZARI PRN Reason: Protocol Last Admin: 12/22/17 10:07 Dose: 40 mg Zolpidem Tartrate (Ambien) 5 mg PO HS PRN; Protocol PRN Reason: Insomnia Last Admin: 12/21/17 23:05 Dose: 5 mg - Labs Labs: 12/21/17 07:35 12/21/17 07:35 - Constitutional Appears: No Acute Distress, Chronically Ill - Head Exam Head Exam: NORMAL INSPECTION - Respiratory Exam Respiratory Exam: Decreased Breath Sounds - Cardiovascular Exam Cardiovascular Exam: +S1, +S2 - GI/Abdominal Exam GI & Abdominal Exam: Soft. absent: Tenderness Assessment and Plan - Assessment and Plan (Free Text) Plan: Assessment Right sided HCAP, slowly improving S/P neutropenia without fever small cell lung cancer atrial fibrillation significant smoking history S/P port-a-cath placement Plan continue Cefepime and Zithromax day 7 for 4-7 days - will d/c after today overall prognosis is poor
[2017-12-22 17:54] LABS: PH,URINE 7.5 (4.7-8.0); URINE BILIRUBIN NEGATIVE (NEGATIVE); URINE BLOOD TRACE-INTACT (NEGATIVE); URINE GLUCOSE (UA) NEGATIVE (NEGATIVE); URINE LEUKOCYTE ESTERASE SMALL Leu/uL (NEGATIVE); URINE PROTEIN NEGATIVE mg/dL (<30 mg/dL); URINE UROBILINOGEN 0.2 E.U./dL (<1 E.U./dL)
[2017-12-22 17:55] LABS: URINE APPEARANCE CLEAR (CLEAR); URINE COLOR YELLOW (YELLOW)
--- NOTE | 2017-12-22 21:18 | PN ---
DATE: 12/22/2017 PULMONARY PROGRESS NOTE REFERRING PHYSICIAN: Aguila Triana MD. SUBJECTIVE: He is sitting up in a bed. Night was unremarkable. Feels better compared to yesterday. No headache, no rhinitis. Short of breath with exertion. No abdominal pain. Complaining about frequency of urination. No leg pain or leg swelling. PHYSICAL EXAMINATION GENERAL: In no acute distress. VITAL SIGNS: Temperature is 98, heart rate 83, respiratory rate is 20, blood pressure 104/66, pulse ox 99% on 4 liters nasal cannula. HEENT: Moist mucous membranes. Crowded airway. NECK: Supple. No JVD. LUNGS: Have a few scattered rhonchi. HEART: S1 and S2. ABDOMEN: Soft, nontender. No organomegaly. EXTREMITIES: No edema. NEUROLOGIC: Awake, alert and follows simple command. MEDICATIONS: He is on Ambien 5 mg at bedtime p.r.n., sotalol 40 mg twice a day, Cardizem 30 mg four times a day, Colace 100 mg twice a day, DuoNeb every 4 hours, Eliquis 5 mg twice a day, Megace 40 mg daily, MiraLax 17 g daily, also on prednisone 40 mg daily, Protonix 20 mg daily, Robitussin DM 5 mL every 4 hours p.r.n., Tessalon Perles 100 mg 3 times a day, Zithromax mg daily. LABORATORY DATA: Reviewed and noted blood sugar yesterday was 111, procalcitonin is 0.61. Chest x-ray done yesterday shows interval improvement without resolution of the right lung infiltrate. IMPRESSION AND PLAN: Unresectable lung cancer requiring radiation and chemotherapy, chronic obstructive lung disease, pneumonia, paroxysmal atrial fibrillation, right-sided [id number]. Pulmonary point of view, doing okay. Continue antibiotics, bronchodilator. Keep head at 45 degrees. We will send urinalysis and urine culture. Pyridium 3 times a day. Fall precaution. Continue therapy. Thank you and we will follow with you. Aura Yi MD [facility] # [id number]
[2017-12-23] MEDS: Albuterol-Ipratrop 3 mg / 0.5 (3 ml) UD IH SCH ×6 (00:40→19:57)
[2017-12-23] MEDS: guaiFENesin DM 100 mg-10 mg/5 ml UD PO PRN ×3 (04:45→15:13)
[2017-12-23] MEDS: Pantoprazole 20 mg EC Tab PO SCH (05:28)
[2017-12-23 07:21] LABS: BASO # 0.16 K/mm3 (0.0-2.0); BASO % 0.9 % (0.0-3.0); EOS # 0.3 (0.0-0.7); EOS % 1.6 % (1.5-5.0); GRAN # 13.67 (1.4-6.5); GRAN % 73.2 % (50.0-68.0); HEMOGLOBIN 12.8 g/dL (14.0-18.0); LYMPH # 2.7 (1.2-3.4); LYMPH % 14.6 % (22.0-35.0); MEAN CELL VOLUME 85.8 fl (80.0-105.0); MEAN CORPUSCULAR HEMOGLOBIN 28.8 pg (25.0-35.0); MEAN CORPUSCULAR HGB CONC 33.5 g/dl (31.0-37.0); MONO # 1.8 (0.1-0.6); MONO % 9.7 % (1.0-6.0); RBC 4.45 10^6/uL (3.5-6.1); RED CELL DISTRIBUTION WIDTH 15.9 % (11.5-14.5); WHITE BLOOD COUNT 18.7 10^3/ul (4.5-11.0)
[2017-12-23 07:33] LABS: ALB/GLOB RATIO 1.1 (1.1-1.8); ALBUMIN 3.2 g/dL (3.0-4.8); ALT/SGPT 44 U/L (7-56); AST/SGOT 26 U/L (17-59); BLOOD UREA NITROGEN 24 mg/dL (7-21); CALCIUM 8.5 mg/dL (8.4-10.5); GFR NON-AFRICAN AMERICAN > 60
[2017-12-23] MEDS: POLYETHYLENE GLYCOL 3350 17 GM/Dose PACKET PO PRN (10:50)
--- NOTE | 2017-12-23 15:00 | CP.PCM.PN ---
Subjective - Date & Time of Evaluation Date of Evaluation: 12/23/17 Time of Evaluation: 13:15 - Subjective Subjective: No fevers, comfortable in bed. Objective - Vital Signs/Intake and Output Vital Signs (last 24 hours): Temp Pulse Resp BP Pulse Ox 97.5 F L 83 21 118/75 98 12/22/17 10:00 12/22/17 13:32 12/22/17 10:00 12/22/17 13:32 12/22/17 10:00 - Medications Medications: Current Medications Albuterol/Ipratropium (Duoneb 3 Mg/0.5 Mg (3 Ml) Ud) 3 ml IH [id number] ZARI PRN Reason: Protocol Last Admin: 12/22/17 11:31 Dose: 3 ml Apixaban (Eliquis) 5 mg PO BID ZARI PRN Reason: Protocol Last Admin: 12/22/17 10:14 Dose: 5 mg Azithromycin (Zithromax) 250 mg PO DAILY ZARI PRN Reason: Protocol Last Admin: 12/22/17 10:14 Dose: 250 mg Benzonatate (Tessalon Perles) 100 mg PO TID ZARI PRN Reason: Protocol Last Admin: 12/22/17 13:32 Dose: 100 mg Diltiazem HCl (Cardizem) 30 mg PO QID ZARI PRN Reason: Protocol Last Admin: 12/22/17 13:32 Dose: 30 mg Docusate Sodium (Colace) 100 mg PO BID ZARI PRN Reason: Protocol Last Admin: 12/22/17 10:08 Dose: 100 mg Guaifenesin/Dextromethorphan (Robitussin Dm) 5 ml PO Q4H PRN; Protocol PRN Reason: Cough Last Admin: 12/22/17 10:04 Dose: 5 ml Cefepime HCl (Maxipime 1gm) 1 gm in 100 mls @ 100 mls/hr IVPB 0600,1800 ZARI PRN Reason: Protocol Last Admin: 12/22/17 05:42 Dose: 100 mls/hr Megestrol Acetate (Megace) 40 mg PO 0800 ZARI PRN Reason: Protocol Last Admin: 12/22/17 08:38 Dose: 40 mg Pantoprazole Sodium (Protonix Ec Tab) 20 mg PO 0600 ZARI Last Admin: 12/22/17 05:43 Dose: 20 mg Polyethylene Glycol (Miralax) 17 gm PO DAILY PRN; Protocol PRN Reason: Constipation Last Admin: 12/21/17 10:13 Dose: 17 gm Prednisone (Prednisone Tab) 40 mg PO 0800 ZARI PRN Reason: Protocol Last Admin: 12/22/17 08:38 Dose: 40 mg Sotalol HCl (Betapace) 40 mg PO BID ZARI PRN Reason: Protocol Last Admin: 12/22/17 10:07 Dose: 40 mg Zolpidem Tartrate (Ambien) 5 mg PO HS PRN; Protocol PRN Reason: Insomnia Last Admin: 12/21/17 23:05 Dose: 5 mg - Labs Labs: 12/21/17 07:35 12/21/17 07:35 - Constitutional Appears: No Acute Distress, Chronically Ill - Head Exam Head Exam: NORMAL INSPECTION - Respiratory Exam Respiratory Exam: Decreased Breath Sounds - Cardiovascular Exam Cardiovascular Exam: +S1, +S2 - GI/Abdominal Exam GI & Abdominal Exam: Soft. absent: Tenderness Assessment and Plan - Assessment and Plan (Free Text) Plan: Assessment Right sided HCAP, S/P treatment with antibiotics S/P neutropenia without fever small cell lung cancer atrial fibrillation significant smoking history S/P port-a-cath placement Plan completed 7 days Cefepime and Zithromax - will continue to monitor off antibiotics since he is at risk for nosocomial infections overall prognosis is poor
--- NOTE | 2017-12-23 21:52 | PN ---
DATE: 12/23/2017 PULMONARY PROGRESS NOTE REFERRING PHYSICIAN: Aguila Triana MD. SUBJECTIVE: He is lying in the bed, having lunch. Night was unremarkable. [place] better, on supplemental oxygen. No cough. Short of breath with exertion. No nausea, vomiting, or diarrhea. No leg pain or leg swelling. PHYSICAL EXAMINATION: GENERAL: In no acute distress. VITAL SIGNS: Temperature is 98, heart rate 72, respiratory rate is 16, blood pressure 100/57, pulse ox 99% on nasal cannula. HEENT: Moist mucous membrane. No ulcer or thrush noted. NECK: Supple. No JVD. LUNGS: Have a fair airflow with rhonchi. HEART: S1 and S2. ABDOMEN: Soft, nontender. No organomegaly. EXTREMITIES: No edema. NEUROLOGIC: Awake and alert. Follows simple commands. MEDICATIONS: Ambien at 10 mg at bedtime p.r.n., sotalol 40 mg twice a day, Cardizem 30 mg four times a day, Colace 100 mg twice a day, DuoNeb every 4 hours p.r.n., Eliquis 5 mg twice a day, Megace 40 mg daily, MiraLax 17 g daily, prednisone 40 mg daily, Protonix 20 mg daily, Robitussin DM 5 mL every 4 hours p.r.n., Tessalon Perles 100 mg three times a day. LABORATORY DATA: Shows hemoglobin 12.8, hematocrit 38.2, WBC 18.7, platelet is 348. Sodium 130, potassium 4.5, chloride 96, bicarbonate 26, BUN 44, creatinine 0.8, glucose 115, calcium 8.5. AST 26, ALT 44, alk phos is 129. Albumin is 3.2, procalcitonin 0.61. Urinalysis shows rbc's 5-10, wbc's 5-10. Urine culture has no growth. IMPRESSION AND PLAN: Unresectable lung cancer requiring radiation and chemotherapy, chronic obstructive lung disease, pneumonia, paroxysmal atrial fibrillation, right side [id number]. Pulmonary point of view, doing okay. We will continue bronchodilator. Keep head at 45 degrees. Decrease prednisone to 30 mg. Gastric prophylaxis, DVT prophylaxis. Thank you and we will follow with you. Aura Yi MD [facility] # [id number]
[2017-12-24] MEDS: Albuterol-Ipratrop 3 mg / 0.5 (3 ml) UD IH SCH ×6 (00:30→19:37)
[2017-12-24] MEDS: Pantoprazole 20 mg EC Tab PO SCH (06:14)
[2017-12-24] MEDS: guaiFENesin DM 100 mg-10 mg/5 ml UD PO PRN ×2 (06:38→16:29)
--- NOTE | 2017-12-24 10:27 | CP.PCM.PN ---
Subjective - Date & Time of Evaluation Date of Evaluation: 12/24/17 Time of Evaluation: 10:15 - Subjective Subjective: Patient is comfortable, doing his physical therapy well, no fevers. Objective - Vital Signs/Intake and Output Vital Signs (last 24 hours): Temp Pulse Resp BP Pulse Ox 97.5 F L 75 21 117/69 98 12/22/17 10:00 12/23/17 13:25 12/22/17 10:00 12/23/17 13:25 12/23/17 10:39 Intake and Output: 12/23/17 12/23/17 06:59 18:59 Intake Total 420 Balance 420 - Medications Medications: Current Medications Albuterol/Ipratropium (Duoneb 3 Mg/0.5 Mg (3 Ml) Ud) 3 ml IH [id number] ZARI PRN Reason: Protocol Last Admin: 12/23/17 14:34 Dose: 3 ml Apixaban (Eliquis) 5 mg PO BID ZARI PRN Reason: Protocol Last Admin: 12/23/17 10:54 Dose: 5 mg Azithromycin (Zithromax) 250 mg PO DAILY ZARI PRN Reason: Protocol Last Admin: 12/23/17 10:51 Dose: 250 mg Benzonatate (Tessalon Perles) 100 mg PO TID ZARI PRN Reason: Protocol Last Admin: 12/23/17 13:13 Dose: 100 mg Diltiazem HCl (Cardizem) 30 mg PO QID ZARI PRN Reason: Protocol Last Admin: 12/23/17 13:25 Dose: 30 mg Docusate Sodium (Colace) 100 mg PO BID ZARI PRN Reason: Protocol Last Admin: 12/23/17 10:53 Dose: 100 mg Guaifenesin/Dextromethorphan (Robitussin Dm) 5 ml PO Q4H PRN; Protocol PRN Reason: Cough Last Admin: 12/23/17 10:51 Dose: 5 ml Megestrol Acetate (Megace) 40 mg PO 0800 ZARI PRN Reason: Protocol Last Admin: 12/23/17 08:56 Dose: 40 mg Pantoprazole Sodium (Protonix Ec Tab) 20 mg PO 0600 ZARI Last Admin: 12/23/17 05:28 Dose: 20 mg Polyethylene Glycol (Miralax) 17 gm PO DAILY PRN; Protocol PRN Reason: Constipation Last Admin: 12/23/17 10:50 Dose: 17 gm Prednisone (Prednisone Tab) 40 mg PO 0800 ZARI PRN Reason: Protocol Last Admin: 12/23/17 08:55 Dose: 40 mg Sotalol HCl (Betapace) 40 mg PO BID ZARI PRN Reason: Protocol Last Admin: 12/23/17 10:49 Dose: 40 mg Zolpidem Tartrate (Ambien) 10 mg PO HS PRN; Protocol PRN Reason: Insomnia Last Admin: 12/22/17 21:25 Dose: 10 mg - Labs Labs: 12/23/17 06:30 12/23/17 06:30 - Constitutional Appears: No Acute Distress, Cachectic, Chronically Ill - Head Exam Head Exam: NORMAL INSPECTION - Neck Exam Neck Exam: absent: Meningismus - Respiratory Exam Respiratory Exam: Decreased Breath Sounds - Cardiovascular Exam Cardiovascular Exam: +S1, +S2 - GI/Abdominal Exam GI & Abdominal Exam: Soft. absent: Tenderness Assessment and Plan - Assessment and Plan (Free Text) Plan: Assessment S/P Right sided HCAP, S/P treatment with antibiotics S/P neutropenia without fever small cell lung cancer atrial fibrillation significant smoking history S/P port-a-cath placement Plan completed 7 days Cefepime and Zithromax - will continue to monitor off antibiotics since he is at risk for hospital-acquired infections overall prognosis is poor
[2017-12-24] MEDS: POLYETHYLENE GLYCOL 3350 17 GM/Dose PACKET PO PRN (16:29)
[2017-12-24] MEDS: Morphine 2 mg/ml ISec IVP PRN (17:35)
--- NOTE | 2017-12-24 18:09 | PN ---
DATE: 12/24/2017 PULMONARY PROGRESS NOTE REFERRING PHYSICIAN: Aguila Triana MD. SUBJECTIVE: He is out of bed to chair, participating in therapy, did take a walk in the hallway. Feels better. He is on room air. No chest pain. No nausea. No vomiting, diarrhea, leg pain, leg swelling. Does get short of breath. OBJECTIVE: GENERAL: In no acute distress. VITAL SIGNS: Temperature is 98, heart rate is 75, respiratory rate is 14, blood pressure 110/62, pulse ox 92% on room air. HEENT: Moist mucous membrane. No ulcer or thrush noted. NECK: Supple. No JVD. LUNGS: Have a few scattered rhonchi. HEART: S1 and S2. ABDOMEN: Soft, nontender. No organomegaly. EXTREMITIES: No edema. NEUROLOGICAL: Awake and alert. Follows simple command. MEDICATIONS: He is on Ambien 10 mg at bedtime p.r.n., sotalol 40 mg twice a day, Cardizem 30 mg four times a day, Colace 100 mg twice a day, DuoNeb every 4 hours, Eliquis 5 mg twice a day, Megace 40 mg daily, MiraLax 17 g daily, prednisone 30 mg daily, Protonix 20 mg daily, Robitussin DM 5 mL every 4 hours, Tessalon Perles 100 mg three times a day. LABORATORY DATA: Reviewed and noted, no new lab is available since yesterday. IMPRESSION AND PLAN: Unresectable lung cancer, has been on radiation therapy, received chemotherapy, chronic lung disease, pneumonia, paroxysmal atrial fibrillation, activities of daily living dysfunction with hypoxemia. Pulmonary point of view, doing better. Continue therapy, p.o. and inhaled bronchodilator, cough suppressor, gastric prophylaxis, anticoagulation, fall precaution. Thank you and we will follow with you. Aura Yi MD
--- NOTE | 2017-12-24 18:39 | CP.PCM.PN ---
Subjective - Date & Time of Evaluation Date of Evaluation: 12/23/17 Time of Evaluation: 21:00 - Subjective Subjective: Continues to have some pleuritic chest pain with coughing. Some SOB with ambulation ROS: 12 ROS otherwise negative Objective - Vital Signs/Intake and Output Vital Signs (last 24 hours): Temp Pulse Resp BP Pulse Ox 98.2 F 75 14 116/62 92 L 12/24/17 16:00 12/24/17 17:37 12/24/17 16:00 12/24/17 17:37 12/24/17 16:00 Intake and Output: 12/24/17 12/24/17 06:59 18:59 Intake Total 420 Balance 420 - Medications Medications: Current Medications Albuterol/Ipratropium (Duoneb 3 Mg/0.5 Mg (3 Ml) Ud) 3 ml IH [id number] ZARI PRN Reason: Protocol Last Admin: 12/24/17 15:31 Dose: 3 ml Apixaban (Eliquis) 5 mg PO BID ZARI PRN Reason: Protocol Last Admin: 12/24/17 17:37 Dose: 5 mg Benzonatate (Tessalon Perles) 100 mg PO TID ZARI PRN Reason: Protocol Last Admin: 12/24/17 17:36 Dose: 100 mg Diltiazem HCl (Cardizem) 30 mg PO QID ZARI PRN Reason: Protocol Last Admin: 12/24/17 17:37 Dose: 30 mg Docusate Sodium (Colace) 100 mg PO BID ZARI PRN Reason: Protocol Last Admin: 12/24/17 17:38 Dose: 100 mg Guaifenesin/Dextromethorphan (Robitussin Dm) 5 ml PO Q4H PRN; Protocol PRN Reason: Cough Last Admin: 12/24/17 16:29 Dose: 5 ml Megestrol Acetate (Megace) 40 mg PO 0800 ZARI PRN Reason: Protocol Last Admin: 12/24/17 08:55 Dose: 40 mg Morphine Sulfate (Morphine) 2 mg IVP Q3H PRN PRN Reason: Pain, moderate (4-7) Last Admin: 12/24/17 17:35 Dose: 2 mg Pantoprazole Sodium (Protonix Ec Tab) 20 mg PO 0600 ZARI Last Admin: 12/24/17 06:14 Dose: 20 mg Polyethylene Glycol (Miralax) 17 gm PO DAILY PRN; Protocol PRN Reason: Constipation Last Admin: 12/24/17 16:29 Dose: 17 gm Prednisone (Prednisone Tab) 30 mg PO 0800 ZARI PRN Reason: Protocol Last Admin: 12/24/17 08:55 Dose: 30 mg Sotalol HCl (Betapace) 40 mg PO BID ZARI PRN Reason: Protocol Last Admin: 12/24/17 10:07 Dose: 40 mg Zolpidem Tartrate (Ambien) 10 mg PO HS PRN; Protocol PRN Reason: Insomnia Last Admin: 12/23/17 23:00 Dose: 10 mg - Labs Labs: 12/23/17 06:30 12/23/17 06:30 - Constitutional Appears: Well - Respiratory Exam Respiratory Exam: Clear to Ausculation Bilateral, NORMAL BREATHING PATTERN - Extremities Exam Extremities Exam: Full ROM, Normal Capillary Refill, Normal Inspection. absent : Joint Swelling, Pedal Edema Assessment and Plan - Assessment and Plan (Free Text) Assessment: 77 y/o extensive stage small cell lung cancer s/p C1 of cis/etop currently admitted with HCAP. Continue abx course per ID. Will re-evaluated C2 treatment date options. Lamont Bullard MD ONcology Service
--- NOTE | 2017-12-24 18:40 | CP.PCM.PN ---
Subjective - Date & Time of Evaluation Date of Evaluation: 12/24/17 Time of Evaluation: 21:00 - Subjective Subjective: Continues with episodic cough; non-productive ROS: 12 ROS otherwise negative Objective - Vital Signs/Intake and Output Vital Signs (last 24 hours): Temp Pulse Resp BP Pulse Ox 98.2 F 75 14 116/62 92 L 12/24/17 16:00 12/24/17 17:37 12/24/17 16:00 12/24/17 17:37 12/24/17 16:00 Intake and Output: 12/24/17 12/24/17 06:59 18:59 Intake Total 420 Balance 420 - Medications Medications: Current Medications Albuterol/Ipratropium (Duoneb 3 Mg/0.5 Mg (3 Ml) Ud) 3 ml IH [id number] ZARI PRN Reason: Protocol Last Admin: 12/24/17 15:31 Dose: 3 ml Apixaban (Eliquis) 5 mg PO BID ZARI PRN Reason: Protocol Last Admin: 12/24/17 17:37 Dose: 5 mg Benzonatate (Tessalon Perles) 100 mg PO TID ZARI PRN Reason: Protocol Last Admin: 12/24/17 17:36 Dose: 100 mg Diltiazem HCl (Cardizem) 30 mg PO QID ZARI PRN Reason: Protocol Last Admin: 12/24/17 17:37 Dose: 30 mg Docusate Sodium (Colace) 100 mg PO BID ZARI PRN Reason: Protocol Last Admin: 12/24/17 17:38 Dose: 100 mg Guaifenesin/Dextromethorphan (Robitussin Dm) 5 ml PO Q4H PRN; Protocol PRN Reason: Cough Last Admin: 12/24/17 16:29 Dose: 5 ml Megestrol Acetate (Megace) 40 mg PO 0800 ZARI PRN Reason: Protocol Last Admin: 12/24/17 08:55 Dose: 40 mg Morphine Sulfate (Morphine) 2 mg IVP Q3H PRN PRN Reason: Pain, moderate (4-7) Last Admin: 12/24/17 17:35 Dose: 2 mg Pantoprazole Sodium (Protonix Ec Tab) 20 mg PO 0600 ZARI Last Admin: 12/24/17 06:14 Dose: 20 mg Polyethylene Glycol (Miralax) 17 gm PO DAILY PRN; Protocol PRN Reason: Constipation Last Admin: 12/24/17 16:29 Dose: 17 gm Prednisone (Prednisone Tab) 30 mg PO 0800 ZARI PRN Reason: Protocol Last Admin: 12/24/17 08:55 Dose: 30 mg Sotalol HCl (Betapace) 40 mg PO BID ZARI PRN Reason: Protocol Last Admin: 12/24/17 10:07 Dose: 40 mg Zolpidem Tartrate (Ambien) 10 mg PO HS PRN; Protocol PRN Reason: Insomnia Last Admin: 12/23/17 23:00 Dose: 10 mg - Labs Labs: 12/23/17 06:30 12/23/17 06:30 - Constitutional Appears: Non-toxic - Respiratory Exam Respiratory Exam: Clear to Ausculation Bilateral, NORMAL BREATHING PATTERN - Cardiovascular Exam Cardiovascular Exam: REGULAR RHYTHM, +S1, +S2. absent: Murmur - GI/Abdominal Exam GI & Abdominal Exam: Soft, Normal Bowel Sounds. absent: Tenderness - Extremities Exam Extremities Exam: Full ROM, Normal Capillary Refill, Normal Inspection. absent : Joint Swelling, Pedal Edema Assessment and Plan - Assessment and Plan (Free Text) Assessment: 77 y/o extensive stage small cell lung cancer s/p C1 of cis/etop currently admitted with HCAP. Continue abx course per ID. Will re-evaluated C2 treatment date options. Lamont Bullard MD ONcology Service
--- NOTE | 2017-12-24 20:40 | PN ---
DATE: 12/24/2017 SUBJECTIVE: He is very tachypneic, tachycardic, shortness of breath, currently getting oxygen by face mask. He has diagnosis of stage IV small cell lung cancer, status post one cycle of chemotherapy. No fever. He has frequent urination. REVIEW OF SYSTEMS: As per HPI. Rest of 12-point review of systems reviewed negative. PHYSICAL EXAMINATION: GENERAL: Tachycardia, tachypnea. VITAL SIGNS: Respiratory rate 25 per minute, temperature 98.2, heart rate 75 per minute, blood pressure 110/62, respiratory rate 25 per minute, oxygen saturation 92% on oxygen by face mask. HEENT: Pallor positive. CHEST: Bilateral breath sounds present. Crepitations present. CARDIOVASCULAR: Tachycardia present. ABDOMEN: Soft, nontender. No hepatosplenomegaly. EXTREMITIES: No edema. CLUB DIRECTOR: Alert and oriented x3. No focal sensorimotor deficits. LABORATORY DATA: Reviewed. MEDICATIONS: Reviewed. ASSESSMENT: 1. Extensive stage disease small cell lung cancer. 2. Tachypnea. 3. Tachycardia. 4. Bilateral pneumonia, treated by intravenous antibiotics. PLAN: Pulmonary sustainable design consultant, Dr. Yi is following, currently on bronchodilators. Oxygen by face mask. Eliquis 5 mg p.o. b.i.d., Megace 40 mg b.i.d. Complaining of back pain, chest pain, morphine 2 mg IV every 3 hours p.r.n. to be given for [id number] pain. We will continue prednisone 30 mg daily. Johanne Dupont MD
[2017-12-25] MEDS: Albuterol-Ipratrop 3 mg / 0.5 (3 ml) UD IH SCH ×6 (00:20→20:20)
[2017-12-25] MEDS: Pantoprazole 20 mg EC Tab PO SCH (06:21)
--- NOTE | 2017-12-25 10:18 | PN ---
DATE: 12/25/2017 SUBJECTIVE: The patient has no complaints of any chest pain, but he does complain of shortness of breath with exertion, but he is able to walk down the hallway. PHYSICAL EXAMINATION: VITAL SIGNS: Temperature is 98.2, pulse of 77, blood pressure is 116/69, respirations 14. GENERAL: The patient is lying in bed, flat, comfortable. HEENT: No oral lesion. Anicteric sclerae. Moist mucosa. NECK: No JVD, adenopathy, or thyromegaly. CARDIOVASCULAR: S1 and S2, regular. No murmurs, rubs, or gallops. LUNGS: Clear to auscultation bilaterally. No wheeze, rales, or rhonchi. ABDOMEN: Bowel sounds are positive. Soft, nontender and nondistended. EXTREMITIES: No cyanosis, clubbing or edema. LABORATORY DATA: White count of 18.7, hemoglobin 12.8, creatinine 0.8, this is from 12/23/2017 blood work. ASSESSMENT: 1. Gait dysfunction. 2. Shortness of breath. 3. Hospital-acquired pneumonia. 4. Small cell cancer stage IV. 5. History of atrial fibrillation, resolved. PLAN: The patient is being followed by Oncology. The patient is currently getting physical therapy, he is being followed by Pulmonary. The patient is on nebulizer treatments. He is on sotalol, he is going to be on Ambien for sleep. He is on Megace for weight gain. The patient is on morphine for pain. The patient is receiving Protonix daily. He is on his cough medications. . Aguila Triana MD
[2017-12-25] MEDS: guaiFENesin DM 100 mg-10 mg/5 ml UD PO PRN (10:53)
[2017-12-25] MEDS: Morphine 2 mg/ml ISec IVP PRN (15:55)
--- NOTE | 2017-12-25 19:00 | CP.PCM.PN ---
Subjective - Date & Time of Evaluation Date of Evaluation: 12/25/17 Time of Evaluation: 10:40 - Subjective Subjective: Afebrile, not in distress, comfortable. Objective - Vital Signs/Intake and Output Vital Signs (last 24 hours): Temp Pulse Resp BP Pulse Ox 97.5 F L 76 16 113/72 96 12/23/17 16:00 12/24/17 10:09 12/23/17 16:00 12/24/17 10:09 12/23/17 22:00 Intake and Output: 12/24/17 12/24/17 06:59 18:59 Intake Total 420 Balance 420 - Medications Medications: Current Medications Albuterol/Ipratropium (Duoneb 3 Mg/0.5 Mg (3 Ml) Ud) 3 ml IH [id number] ZARI PRN Reason: Protocol Last Admin: 12/24/17 07:25 Dose: 3 ml Apixaban (Eliquis) 5 mg PO BID ZARI PRN Reason: Protocol Last Admin: 12/24/17 10:12 Dose: 5 mg Benzonatate (Tessalon Perles) 100 mg PO TID ZARI PRN Reason: Protocol Last Admin: 12/24/17 10:06 Dose: 100 mg Diltiazem HCl (Cardizem) 30 mg PO QID ZARI PRN Reason: Protocol Last Admin: 12/24/17 10:09 Dose: 30 mg Docusate Sodium (Colace) 100 mg PO BID ZARI PRN Reason: Protocol Last Admin: 12/24/17 10:08 Dose: 100 mg Guaifenesin/Dextromethorphan (Robitussin Dm) 5 ml PO Q4H PRN; Protocol PRN Reason: Cough Last Admin: 12/24/17 06:38 Dose: 5 ml Megestrol Acetate (Megace) 40 mg PO 0800 ZARI PRN Reason: Protocol Last Admin: 12/24/17 08:55 Dose: 40 mg Pantoprazole Sodium (Protonix Ec Tab) 20 mg PO 0600 ZARI Last Admin: 12/24/17 06:14 Dose: 20 mg Polyethylene Glycol (Miralax) 17 gm PO DAILY PRN; Protocol PRN Reason: Constipation Last Admin: 12/23/17 10:50 Dose: 17 gm Prednisone (Prednisone Tab) 30 mg PO 0800 ZARI PRN Reason: Protocol Last Admin: 12/24/17 08:55 Dose: 30 mg Sotalol HCl (Betapace) 40 mg PO BID ZARI PRN Reason: Protocol Last Admin: 12/24/17 10:07 Dose: 40 mg Zolpidem Tartrate (Ambien) 10 mg PO HS PRN; Protocol PRN Reason: Insomnia Last Admin: 12/23/17 23:00 Dose: 10 mg - Labs Labs: 12/23/17 06:30 12/23/17 06:30 - Constitutional Appears: Cachectic, Chronically Ill - Head Exam Head Exam: NORMAL INSPECTION - Neck Exam Neck Exam: absent: Meningismus - Respiratory Exam Respiratory Exam: Decreased Breath Sounds - Cardiovascular Exam Cardiovascular Exam: +S1, +S2 - GI/Abdominal Exam GI & Abdominal Exam: Soft. absent: Tenderness Assessment and Plan - Assessment and Plan (Free Text) Plan: Assessment S/P Right sided HCAP, S/P treatment with antibiotics S/P neutropenia without fever small cell lung cancer atrial fibrillation significant smoking history S/P port-a-cath placement Plan completed 7 days Cefepime and Zithromax - will continue to monitor off antibiotics since he is at risk for healthcare-associated infections overall prognosis is poor
--- NOTE | 2017-12-25 19:48 | PN ---
DATE: 12/25/2017 PULMONARY PROGRESS NOTE REFERRING PHYSICIAN: Aguila Triana MD. SUBJECTIVE: He is sitting in the bed. Night was unremarkable. Feels okay. Did do therapy today. Short of breath with exertion. No nausea. No vomiting, diarrhea, leg pain or leg swelling. OBJECTIVE: GENERAL: In no acute distress. VITAL SIGNS: Temperature is 98, heart rate is 80, respiratory rate is 20, blood pressure 104/61, pulse ox 98% on nasal cannula. HEENT: Moist mucous membrane. No ulcer or thrush noted. NECK: Supple. No JVD. LUNGS: Have a fair airflow with few rhonchi. HEART: S1 and S2. ABDOMEN: Soft, nontender. No organomegaly. EXTREMITIES: There is no edema. NEUROLOGICAL: Awake and alert. Follows simple command. MEDICATIONS: He is on Ambien 10 mg at bedtime p.r.n., sotalol 40 mg twice a day, Cardizem 30 mg four times a day, Colace 100 mg twice a day, DuoNeb every 4 hours p.r.n., Eliquis 5 mg twice a day, Megace 40 mg daily, MiraLax 17 g daily, morphine 2 mg IV every 3 hours p.r.n., prednisone 30 mg daily, Protonix 20 mg daily, Robitussin 5 mL every 4 hours p.r.n., Tessalon Perles 100 mg three times a day. LABORATORY DATA: Reviewed. No new lab is available since yesterday. IMPRESSION AND PLAN: Unresectable lung cancer, been on radiation therapy, chemotherapy; chronic lung disease; pneumonia; paroxysmal atrial fibrillation; activities of daily living dysfunction. Pulmonary point of view, doing okay. Continue bronchodilator. Keep head at 45 degrees. Supplement oxygen. Continue therapy. Oncology followup. History of paroxysmal atrial fibrillation, on anticoagulation. Gastric prophylaxis. Thank you and we will follow with you. Aura Yi MD
[2017-12-26] MEDS: Morphine 2 mg/ml ISec IVP PRN (00:05)
[2017-12-26] MEDS: guaiFENesin DM 100 mg-10 mg/5 ml UD PO PRN ×2 (00:05→23:46)
[2017-12-26] MEDS: Albuterol-Ipratrop 3 mg / 0.5 (3 ml) UD IH SCH ×7 (00:15→23:59)
[2017-12-26] MEDS: Pantoprazole 20 mg EC Tab PO SCH (05:57)
[2017-12-26 06:17] LABS: BASO # 0.12 K/mm3 (0.0-2.0); BASO % 0.7 % (0.0-3.0); EOS # 0.4 (0.0-0.7); EOS % 2.1 % (1.5-5.0); HEMOGLOBIN 11.9 g/dL (14.0-18.0); MEAN CELL VOLUME 86.6 fl (80.0-105.0); MEAN CORPUSCULAR HEMOGLOBIN 29.5 pg (25.0-35.0); MEAN PLATELET VOLUME 9.2 fl (7.0-11.0); MONO # 0.7 (0.1-0.6); PLATELET COUNT 246 10^3/uL (120.0-450.0); RBC 4.04 10^6/uL (3.5-6.1); RED CELL DISTRIBUTION WIDTH 16.5 % (11.5-14.5); WHITE BLOOD COUNT 17.7 10^3/ul (4.5-11.0)
[2017-12-26 07:03] LABS: BAND 3 % (0-2); LYMPHOCYTE 7 % (22.0-35.0); METAMYELOCYTE 1 %; MONOCYTE 14 % (1.0-6.0); MYELOCYTE 2 %; NEUTROPHIL 73 % (50.0-70.0); PLATELET ESTIMATE NORMAL (NORMAL)
[2017-12-26 07:11] LABS: ALB/GLOB RATIO 1.1 (1.1-1.8); ALBUMIN 2.9 g/dL (3.0-4.8); ALT/SGPT 35 U/L (7-56); AST/SGOT 30 U/L (17-59); BLOOD UREA NITROGEN 28 mg/dL (7-21); CALCIUM 8.9 mg/dL (8.4-10.5); GFR NON-AFRICAN AMERICAN > 60
--- NOTE | 2017-12-26 10:35 | CP.PCM.PN ---
Subjective - Date & Time of Evaluation Date of Evaluation: 12/26/17 Time of Evaluation: 10:30 - Subjective Subjective: Heme/Onc Progress Note for Dr. Bullard -- Doug Law DO PGY2 Patient seen and examined at bedside. No acute overnight events. Patient states that cough has improved, but has not had a BM for 3 days. Patient denied CP, SOB , n/v/d, abdominal pain, fever, chills, AYALA, or dizziness. Objective - Vital Signs/Intake and Output Vital Signs (last 24 hours): Temp Pulse Resp BP Pulse Ox 97.9 F 93 H 20 124/67 98 12/25/17 16:00 12/26/17 09:58 12/25/17 16:00 12/26/17 09:58 12/25/17 16:47 Intake and Output: 12/26/17 12/26/17 06:59 18:59 Intake Total 420 Balance 420 - Medications Medications: Current Medications Albuterol/Ipratropium (Duoneb 3 Mg/0.5 Mg (3 Ml) Ud) 3 ml IH [id number] ZARI PRN Reason: Protocol Last Admin: 12/26/17 07:12 Dose: 3 ml Apixaban (Eliquis) 5 mg PO BID ZARI PRN Reason: Protocol Last Admin: 12/26/17 09:59 Dose: 5 mg Benzonatate (Tessalon Perles) 100 mg PO TID ZARI PRN Reason: Protocol Last Admin: 12/26/17 10:00 Dose: 100 mg Diltiazem HCl (Cardizem) 30 mg PO QID ZARI PRN Reason: Protocol Last Admin: 12/26/17 09:59 Dose: Not Given Docusate Sodium (Colace) 100 mg PO BID ZARI PRN Reason: Protocol Last Admin: 12/26/17 09:59 Dose: 100 mg Guaifenesin/Dextromethorphan (Robitussin Dm) 5 ml PO Q4H PRN; Protocol PRN Reason: Cough Last Admin: 12/26/17 00:05 Dose: 5 ml Megestrol Acetate (Megace) 40 mg PO 0800 ZARI PRN Reason: Protocol Last Admin: 12/26/17 08:14 Dose: 40 mg Morphine Sulfate (Morphine) 2 mg IVP Q3H PRN PRN Reason: Pain, moderate (4-7) Last Admin: 12/26/17 00:05 Dose: 2 mg Pantoprazole Sodium (Protonix Ec Tab) 20 mg PO 0600 ZARI Last Admin: 12/26/17 05:57 Dose: 20 mg Polyethylene Glycol (Miralax) 17 gm PO DAILY PRN; Protocol PRN Reason: Constipation Last Admin: 12/24/17 16:29 Dose: 17 gm Prednisone (Prednisone Tab) 30 mg PO 0800 ZARI PRN Reason: Protocol Last Admin: 12/26/17 08:14 Dose: 30 mg Sotalol HCl (Betapace) 40 mg PO BID ZARI PRN Reason: Protocol Last Admin: 12/26/17 09:58 Dose: 40 mg Zolpidem Tartrate (Ambien) 10 mg PO HS PRN; Protocol PRN Reason: Insomnia Last Admin: 12/26/17 00:05 Dose: 10 mg - Labs Labs: 12/26/17 06:00 12/26/17 06:00 - Constitutional Appears: No Acute Distress - Head Exam Head Exam: NORMAL INSPECTION - Eye Exam Eye Exam: Normal appearance Pupil Exam: NORMAL ACCOMODATION - ENT Exam ENT Exam: Mucous Membranes Moist, Normal Exam - Neck Exam Neck Exam: Normal Inspection - Respiratory Exam Respiratory Exam: Decreased Breath Sounds. absent: Rales, Rhonchi, Wheezes - Cardiovascular Exam Cardiovascular Exam: RRR, +S1, +S2. absent: Gallop, Rubs, Murmur - GI/Abdominal Exam GI & Abdominal Exam: Soft. 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 Oncology consulted as patient is currently undergoing chemotherapy for his stage IV small cell lung cancer. Patient's hospital course was complicated by atrial fibrillation with rapid ventricular rate that is now rate controlled. Patient now in TCU. Plan: - Will resume 4-day chemotherapy regimen today Tu: Carboplatin + Etoposide Wed/Th: Etoposide Fri: Neulasta + IVF - PO prednisone - PO Cardizem and Sotolol for A-fib rate control, Eliquis for AC; further recs per Cardio - Off abx - Further management per primary Case discussed with attending. Doug Law, PGY2
--- NOTE | 2017-12-26 19:43 | PN ---
DATE: 12/26/2017 SUBJECTIVE: The patient is in bed, in no acute distress, nontoxic. PHYSICAL EXAMINATION VITAL SIGNS: Temperature is 98, blood pressure is 106/50, respiratory rate of 18. HEENT: Unremarkable. NECK: Supple. LUNGS: Have decreased breath sounds. HEART: Normal S1 and S2. ABDOMEN: Soft, nontender. LABORATORY DATA: Reveals a white count of 17,700, hemoglobin of 11, platelets of 246 and BUN of 28, creatinine of 0.6 and procalcitonin 0.61. Microbiology reveals the urine culture is negative, no growth. ASSESSMENT AND PLAN: A 76-year-old male with status post right-sided healthcare-associated pneumonia, status post treatment with antibiotics, status post neutropenia without fever and the patient with small-cell lung cancer, atrial fibrillation and significant smoking history. Completed the antibiotics. Currently, review of orders reveals the patient to be off of antibiotics, afebrile and we will follow closely with you. The patient is on prednisone. He is at risk for developing nosocomial infections. Chon Guerra MD
--- NOTE | 2017-12-26 22:58 | PN ---
DATE: 12/26/2017 PULMONARY PROGRESS NOTE REFERRING PHYSICIAN: Aguila Triana MD SUBJECTIVE: He is lying in the bed, sleepy, arousable. Came back from chemotherapy. Night was unremarkable. No chest pain. No shortness of breath at rest. No nausea. No vomiting. No diarrhea. No leg pain or leg swelling. OBJECTIVE: GENERAL: In no acute distress. VITAL SIGNS: Temperature is 98, heart rate is 80, respiratory rate is 18, blood pressure 106/55, pulse ox 93% on 3 L nasal cannula. HEENT: Moist mucous membrane. No ulcer or thrush noted. NECK: Supple. No JVD. LUNGS: Have a few scattered rhonchi. HEART: S1 and S2. ABDOMEN: Soft, nontender. No organomegaly. EXTREMITIES: There is no edema. NEUROLOGIC: Awake and alert. Follows simple commands. MEDICATIONS: He is on Ambien 10 mg at bedtime p.r.n., sotalol 40 mg twice a day, Cardizem 30 mg four times a day, Colace 100 mg twice a day, albuterol/Atrovent nebulizer every 4 hours, Eliquis 5 mg twice a day, Megace 40 mg daily, MiraLax 17 g daily, morphine 2 mg every 3 hours p.r.n., prednisone 30 mg daily, Protonix 20 mg daily, Robitussin 5 mL every 4 hours, Tessalon Perles 100 mg three times a day. LABORATORY DATA: Shows hemoglobin 11.9, hematocrit 35, WBC 17.7, platelets 346. Sodium 131, potassium 4.4, chloride 96, bicarbonate 29, BUN 28, creatinine 0.6, glucose 116, calcium is 8.9, AST 30, ALT 35, alk phos is 94, albumin is 2.9. IMPRESSION AND PLAN: Unresectable lung cancer status post radiation therapy, on second course of chemotherapy, chronic obstructive lung disease, pneumonia, paroxysmal atrial fibrillation, activities of daily living dysfunction. Pulmonary point of view, doing well. Continue prednisone 30 mg. Bronchodilator. Gastric prophylaxis. Anticoagulation. Fall precautions. Once chemotherapy is finished, we will taper down steroids. Thank you and we will follow with you. Aura Yi MD [facility] # [id number]
[2017-12-27] MEDS: Albuterol-Ipratrop 3 mg / 0.5 (3 ml) UD IH SCH ×4 (03:45→21:41)
[2017-12-27] MEDS: Pantoprazole 20 mg EC Tab PO SCH (05:20)
[2017-12-27] MEDS: guaiFENesin DM 100 mg-10 mg/5 ml UD PO PRN ×2 (05:20→23:35)
[2017-12-27 06:27] LABS: BASO # 0.03 K/mm3 (0.0-2.0); BASO % 0.2 % (0.0-3.0); EOS % 0.1 % (1.5-5.0); GRAN # 11.34 (1.4-6.5); GRAN % 88.9 % (50.0-68.0); HEMOGLOBIN 11.5 g/dL (14.0-18.0); LYMPH # 0.9 (1.2-3.4); LYMPH % 6.8 % (22.0-35.0); MEAN CELL VOLUME 86.8 fl (80.0-105.0); MEAN CORPUSCULAR HEMOGLOBIN 29.1 pg (25.0-35.0); MEAN CORPUSCULAR HGB CONC 33.5 g/dl (31.0-37.0); MEAN PLATELET VOLUME 9.5 fl (7.0-11.0); MONO # 0.5 (0.1-0.6); RBC 3.95 10^6/uL (3.5-6.1); RED CELL DISTRIBUTION WIDTH 16.4 % (11.5-14.5); WHITE BLOOD COUNT 12.8 10^3/ul (4.5-11.0)
[2017-12-27 06:52] LABS: ALBUMIN 2.8 g/dL (3.0-4.8); ALT/SGPT 41 U/L (7-56); AST/SGOT 35 U/L (17-59); BLOOD UREA NITROGEN 25 mg/dL (7-21); CALCIUM 8.3 mg/dL (8.4-10.5); GFR NON-AFRICAN AMERICAN > 60
--- NOTE | 2017-12-27 09:28 | PN ---
DATE: 12/27/2017 SUBJECTIVE: The patient has no complaints of any chest pain. No shortness of breath. No headaches or dizziness. He had chemotherapy done yesterday. PHYSICAL EXAMINATION:: VITAL SIGNS: Temperature is 98.3, pulse is 79, blood pressure is 128/64, respirations 20. GENERAL: The patient is lying in bed, flat, comfortable. HEENT: No oral lesion. Anicteric sclerae. Moist mucosa. NECK: No JVD, adenopathy, or thyromegaly. CARDIOVASCULAR: S1 and S2, regular. No murmurs, rubs, or gallops. LUNGS: Clear to auscultation bilaterally. No wheeze, rales, or rhonchi. ABDOMEN: Bowel sounds are positive, soft, nontender and nondistended. EXTREMITIES: No cyanosis, clubbing, or edema. LABORATORY DATA: White count of 12.8, hemoglobin 11.5. Creatinine is 0.6. ASSESSMENT: 1. Gait dysfunction. 2. Shortness of breath. 3. Hospital-acquired pneumonia. 4. Small cell cancer of the lung, stage IV. 5. History of atrial fibrillation, resolved. PLAN: The patient is on Ambien for sleep. The patient is on sotalol for his AFib. The patient is on Colace, this will be continued. He is being followed by Dr. Yi and Dr. Guerra and also by Dr. Bullard from Oncology. The patient received chemotherapy yesterday and will get chemotherapy today. He is on Eliquis for his atrial fibrillation. The patient is on Megace. The patient is on Protonix daily. Aguila Triana MD
--- NOTE | 2017-12-27 15:46 | PN ---
DATE: 12/27/2017 PULMONARY PROGRESS NOTE REFERRING PHYSICIAN: Aguila Triana MD. SUBJECTIVE: The patient is lying in the reclining chair, getting chemotherapy. Night was unremarkable. Slept well. No headache. No rhinitis. He gets short of breath with exertion. No nausea. No vomiting, diarrhea. Small ankle swelling. OBJECTIVE: GENERAL: In no acute distress. VITAL SIGNS: Temp is 98, heart rate is 74, respiratory rate 20, blood pressure 107/62, pulse ox 99% on 2 L nasal cannula. HEENT: Moist mucous membranes. No ulcer or thrush noted. NECK: Supple. No JVD. LUNGS: Have a few scattered rhonchi. HEART: S1 and S2. ABDOMEN: Soft, nontender. No organomegaly. EXTREMITY: Has ankle edema. NEUROLOGICAL: Awake and alert. Follows simple command. MEDICATIONS: He is on Ambien 10 mg at bedtime p.r.n., sotalol 40 mg twice a day, Cardizem 30 mg four times a day, Colace 100 mg twice a day, albuterol/Atrovent nebulizer every 4 hours, Eliquis 5 mg twice a day, Megace 40 mg daily, MiraLax 17 g daily, morphine 2 mg every 3 hours p.r.n., prednisone 30 mg daily, Protonix is at 20 mg daily, Robitussin 5 mL every 4 hours p.r.n., Tessalon Perles 100 mg three times a day. LABORATORY DATA: Shows hemoglobin 11.5, hematocrit 34.3, WBC 12.8, platelet count is 238. Sodium 129, potassium of 4.4, chloride 96, bicarbonate 28, BUN 25, creatinine 0.6, glucose 180, calcium is 8.3, AST 35, ALT 41, alk phos is 86, albumin is 2.8. IMPRESSION AND PLAN: Unresectable lung cancer, status post radiation therapy, presently second course of chemotherapy; chronic obstructive lung disease; history of pneumonia; paroxysmal atrial fibrillation; activities of daily living dysfunction; does have some ankle swelling. Probably it is a normal ejection fraction heart failure with chemotherapy, fluid overloaded. We will continue to watch closely. Sodium is also low. We will repeat electrolyte tomorrow. So continue supplemental oxygen and bronchodilator. Thank you and we will follow with you. Aura Yi MD [facility] # [id number]
--- NOTE | 2017-12-27 16:37 | CP.PCM.PN ---
Subjective - Date & Time of Evaluation Date of Evaluation: 12/27/17 Time of Evaluation: 11:10 - Subjective Subjective: Comfortable, afebrile. Objective - Vital Signs/Intake and Output Vital Signs (last 24 hours): Temp Pulse Resp BP Pulse Ox 98.3 F 79 20 128/64 99 12/27/17 06:00 12/27/17 06:00 12/27/17 06:00 12/27/17 06:00 12/27/17 06:00 Intake and Output: 12/27/17 12/27/17 06:59 18:59 Intake Total 300 Output Total 100 Balance 200 - Medications Medications: Current Medications Albuterol/Ipratropium (Duoneb 3 Mg/0.5 Mg (3 Ml) Ud) 3 ml IH [id number] ZARI PRN Reason: Protocol Last Admin: 12/27/17 07:13 Dose: 3 ml Apixaban (Eliquis) 5 mg PO BID ZARI PRN Reason: Protocol Last Admin: 12/26/17 17:46 Dose: 5 mg Benzonatate (Tessalon Perles) 100 mg PO TID ZARI PRN Reason: Protocol Last Admin: 12/26/17 17:46 Dose: 100 mg Diltiazem HCl (Cardizem) 30 mg PO QID ZARI PRN Reason: Protocol Last Admin: 12/26/17 22:10 Dose: Not Given Docusate Sodium (Colace) 100 mg PO BID ZARI PRN Reason: Protocol Last Admin: 12/26/17 17:45 Dose: 100 mg Guaifenesin/Dextromethorphan (Robitussin Dm) 5 ml PO Q4H PRN; Protocol PRN Reason: Cough Last Admin: 12/27/17 05:20 Dose: 5 ml Megestrol Acetate (Megace) 40 mg PO 0800 ZARI PRN Reason: Protocol Last Admin: 12/27/17 08:00 Dose: 40 mg Morphine Sulfate (Morphine) 2 mg IVP Q3H PRN PRN Reason: Pain, moderate (4-7) Last Admin: 12/26/17 00:05 Dose: 2 mg Pantoprazole Sodium (Protonix Ec Tab) 20 mg PO 0600 ZARI Last Admin: 12/27/17 05:20 Dose: 20 mg Polyethylene Glycol (Miralax) 17 gm PO DAILY PRN; Protocol PRN Reason: Constipation Last Admin: 12/24/17 16:29 Dose: 17 gm Prednisone (Prednisone Tab) 30 mg PO 0800 ZARI PRN Reason: Protocol Last Admin: 12/27/17 08:01 Dose: 30 mg Sotalol HCl (Betapace) 40 mg PO BID ZARI PRN Reason: Protocol Last Admin: 12/26/17 17:39 Dose: 40 mg Zolpidem Tartrate (Ambien) 10 mg PO HS PRN; Protocol PRN Reason: Insomnia Last Admin: 12/27/17 02:04 Dose: 10 mg - Labs Labs: 12/27/17 05:48 12/27/17 05:48 - Constitutional Appears: Cachectic, Chronically Ill - Head Exam Head Exam: NORMAL INSPECTION - Respiratory Exam Respiratory Exam: Decreased Breath Sounds - Cardiovascular Exam Cardiovascular Exam: +S1, +S2 - GI/Abdominal Exam GI & Abdominal Exam: Soft. absent: Tenderness Assessment and Plan - Assessment and Plan (Free Text) Plan: Assessment S/P Right sided HCAP, S/P treatment with antibiotics S/P neutropenia without fever small cell lung cancer atrial fibrillation significant smoking history S/P port-a-cath placement Plan completed 7 days Cefepime and Zithromax - will continue to monitor off antibiotics since he is at risk for nosocomial infections overall prognosis is poor
[2017-12-28] MEDS: Albuterol-Ipratrop 3 mg / 0.5 (3 ml) UD IH SCH ×7 (00:08→23:30)
--- NOTE | 2017-12-28 04:16 | PN ---
DATE: 12/27/2017 ONCOLOGY PROGRESS NOTE LOCATION: The patient is currently in the Oncology Unit, getting chemotherapy. 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 SUBJECTIVE: The patient is sitting in the reclining chair, receiving his chemotherapy. Night was unremarkable. Patient slept well. Since he had his chemotherapy yesterday, the patient has been feeling a little bit better. His mouth is less dry. Appetite is improved. He has been eating most of the normal food that he has been getting. Still gets short of breath on exertion. Denies any hemoptysis. Coughing is dry. No history of nausea, vomiting, or diarrhea. There has been some ankle swelling. PHYSICAL EXAMINATION: GENERAL: The patient is in no acute distress. VITAL SIGNS: Stable. T-max is 98.4, heart rate is 74, respirations 20, blood pressure is 107/62, pulse ox is 99% on 2 L of nasal oxygen. HEENT: Head is normocephalic and atraumatic. Conjunctivae pale. Sclera is anicteric. Pupils are equally reactive to light and accommodation. Examination of the oropharynx reveals no oropharyngeal lesions. NECK: Supple. There is no adenopathy. No jugular venous distension noted. LUNGS: Reveals bilateral scattered rhonchi. HEART: Reveals S1 and S2 to be normal. No gallop or murmurs heard. ABDOMEN: Soft, nontender. Bowel sounds are present. No rebound, rigidity or guarding is noted. EXTREMITIES: Reveals no cyanosis, clubbing. The patient has ankle edema. NEUROLOGIC: Reveals higher functions to be normal. No focal deficits are noted. GENITOURINARY: Deferred. RECTAL: Deferred. MEDICATIONS: The patient's medications were reviewed. The patient is on Ambien 10 mg at bedtime, sotalol 40 mg b.i.d., Cardizem 30 mg p.o. four times a day, Colace 100 mg twice a day, albuterol/Atrovent nebulizer every 4 hours, Eliquis 5 mg twice a day, Megace 40 mg p.o. daily, MiraLax 17 g p.o. daily, morphine 2 mg IV every 3 hours p.r.n., prednisone 30 mg oral daily, Protonix 20 mg daily, Robitussin every 4 hours as needed, Tessalon Perles 100 mg three times a day. LABORATORY DATA: Shows hemoglobin 11.5, hematocrit 34.3, white count is 12.8 with the platelet count of 238,000. His sodium is 129, potassium is 4.4, chloride is 96, bicarbonate 28, BUN is 25, creatinine 0.6. Glucose is 180 with the calcium of 8.3. AST 35, ALT 41, alkaline phosphatase is 86 with an albumin of 2.8. 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 He is also on cyclical Aredia as well, given once a month. This is his second course of chemotherapy today. The patient is on anticoagulants for atrial fibrillation and was noted to develop when the first dose of chemotherapy was given. Plan, we will continue next dose, day 2 of chemotherapy today, is due for his day 3 of chemotherapy on tomorrow and get his Neulasta 24 hours post chemotherapy. In the meantime, we will continue to monitor his electrolytes and his white count while on the systemic chemotherapy. Prognosis of the patient is guarded. Family and the patient were quite aware of the situation and what we are doing for him under these circumstances. Time spent with the patient is greater than 85 minutes, out of which more than 50% of the time was spent in [id number] encounter, discussing with the patient all the findings so far and the further treatment plans ongoing. Anu Bullard MD
[2017-12-28] MEDS: Pantoprazole 20 mg EC Tab PO SCH (06:02)
[2017-12-28 06:18] LABS: BASO # 0.02 K/mm3 (0.0-2.0); BASO % 0.1 % (0.0-3.0); GRAN # 12.96 (1.4-6.5); GRAN % 89.9 % (50.0-68.0); LYMPH % 7.2 % (22.0-35.0); MEAN CELL VOLUME 86.1 fl (80.0-105.0); MEAN CORPUSCULAR HEMOGLOBIN 29.4 pg (25.0-35.0); MEAN CORPUSCULAR HGB CONC 34.2 g/dl (31.0-37.0); MEAN PLATELET VOLUME 9.4 fl (7.0-11.0); MONO # 0.4 (0.1-0.6); MONO % 2.8 % (1.0-6.0); RBC 3.74 10^6/uL (3.5-6.1); RED CELL DISTRIBUTION WIDTH 16.1 % (11.5-14.5); WHITE BLOOD COUNT 14.4 10^3/ul (4.5-11.0)
[2017-12-28 06:55] LABS: BLOOD UREA NITROGEN 23 mg/dL (7-21); GFR NON-AFRICAN AMERICAN > 60
[2017-12-28 06:56] LABS: ALBUMIN 2.7 g/dL (3.0-4.8); ALT/SGPT 31 U/L (7-56); AST/SGOT 22 U/L (17-59); CALCIUM 8.5 mg/dL (8.4-10.5)
--- NOTE | 2017-12-28 12:17 | CP.PCM.PN ---
Subjective - Date & Time of Evaluation Date of Evaluation: 12/28/17 Time of Evaluation: 12:14 - Subjective Subjective: Heme/Onc Progress Note for Dr. Bullard -- Doug Law DO PGY2 Patient seen and examined at bedside. No acute overnight events. Patient doing well in TCU. Patient states that his cough and sore throat is improved. Patient denied CP, SOB, n/v/d, abdominal pain, fever, chills, AYALA, or dizziness. Objective - Vital Signs/Intake and Output Vital Signs (last 24 hours): Temp Pulse Resp BP Pulse Ox 98.3 F 70 20 115/69 95 12/27/17 06:00 12/27/17 21:31 12/27/17 06:00 12/28/17 09:08 12/27/17 17:12 - Medications Medications: Current Medications Albuterol/Ipratropium (Duoneb 3 Mg/0.5 Mg (3 Ml) Ud) 3 ml IH [id number] ZARI PRN Reason: Protocol Last Admin: 12/28/17 11:41 Dose: Not Given Apixaban (Eliquis) 5 mg PO BID ZARI PRN Reason: Protocol Last Admin: 12/28/17 09:09 Dose: 5 mg Benzonatate (Tessalon Perles) 100 mg PO TID ZARI PRN Reason: Protocol Last Admin: 12/28/17 09:09 Dose: 100 mg Diltiazem HCl (Cardizem) 30 mg PO QID ZARI PRN Reason: Protocol Last Admin: 12/28/17 09:08 Dose: 30 mg Docusate Sodium (Colace) 100 mg PO BID ZARI PRN Reason: Protocol Last Admin: 12/28/17 09:08 Dose: Not Given Guaifenesin/Dextromethorphan (Robitussin Dm) 5 ml PO Q4H PRN; Protocol PRN Reason: Cough Last Admin: 12/27/17 23:35 Dose: 5 ml Megestrol Acetate (Megace) 40 mg PO 0800 ZARI PRN Reason: Protocol Last Admin: 12/28/17 09:07 Dose: 40 mg Morphine Sulfate (Morphine) 2 mg IVP Q3H PRN PRN Reason: Pain, moderate (4-7) Last Admin: 12/26/17 00:05 Dose: 2 mg Pantoprazole Sodium (Protonix Ec Tab) 20 mg PO 0600 ZARI Last Admin: 12/28/17 06:02 Dose: 20 mg Polyethylene Glycol (Miralax) 17 gm PO DAILY PRN; Protocol PRN Reason: Constipation Last Admin: 12/24/17 16:29 Dose: 17 gm Prednisone (Prednisone Tab) 30 mg PO 0800 ZARI PRN Reason: Protocol Last Admin: 12/28/17 09:06 Dose: 30 mg Sotalol HCl (Betapace) 40 mg PO BID ZARI PRN Reason: Protocol Last Admin: 12/28/17 09:07 Dose: 40 mg Zolpidem Tartrate (Ambien) 10 mg PO HS PRN; Protocol PRN Reason: Insomnia Last Admin: 12/27/17 23:58 Dose: 10 mg - Labs Labs: 12/28/17 06:10 12/28/17 06:10 - Constitutional Appears: No Acute Distress - Head Exam Head Exam: NORMAL INSPECTION - Eye Exam Eye Exam: Normal appearance Pupil Exam: NORMAL ACCOMODATION - ENT Exam ENT Exam: Mucous Membranes Moist - Respiratory Exam Respiratory Exam: Clear to Ausculation Bilateral. absent: Rales, Rhonchi, Wheezes - Cardiovascular Exam Cardiovascular Exam: RRR. absent: Gallop, Rubs, Murmur - GI/Abdominal Exam GI & Abdominal Exam: Soft. 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 Oncology consulted as patient is currently undergoing chemotherapy for his stage IV small cell lung cancer. Patient's hospital course was complicated by atrial fibrillation with rapid ventricular rate that is now rate controlled. Patient now in TCU. Plan: - Chemo today with Etoposide, will receive Neulasta + IVF tomorrow - PO prednisone - PO Cardizem and Sotolol for A-fib rate control, Eliquis for AC; further recs per Cardio - Further management per primary Case discussed with attending. Doug Law, DO PGY2
[2017-12-28] MEDS: guaiFENesin DM 100 mg-10 mg/5 ml UD PO PRN ×2 (13:48→17:35)
[2017-12-28 16:26] VITALS: PULSE 75; RESP 16; TEMP 98.1; O2SAT 100
--- NOTE | 2017-12-28 20:01 | PN ---
DATE: 12/28/2017 SUBJECTIVE: The patient is in bed, in no acute distress. PHYSICAL EXAMINATION VITAL SIGNS: Temperature is 98, blood pressure is 118/60, respiratory rate of 16, heart rate of 75. HEENT: Unremarkable. NECK: Supple. LUNGS: Have decreased breath sounds. HEART: Normal S1 and S2. ABDOMEN: Soft. LABORATORY DATA: Reveals a white count of 14,400, hemoglobin of 11, platelets of 200. Chemistries are noted and the urine is noted. Review of orders reveals the patient to be on prednisone, off of antibiotics. Review of microbiology reveals the urine culture has no growth. Blood cultures have no growth. Another urine culture has no growth. ASSESSMENT AND PLAN: A 76-year-old male seen earlier today in room 321 with status post right-sided healthcare-associated pneumonia, status post treatment with antibiotics, status post neutropenia without any fevers, small-cell lung cancer, atrial fibrillation, significant smoking history, status post Port-A-Cath placement and completed antibiotics therapy with cefepime and Zithromax. We will follow closely with you. Chon Guerra MD
[2017-12-29] MEDS: guaiFENesin DM 100 mg-10 mg/5 ml UD PO PRN ×2 (00:08→13:38)
--- NOTE | 2017-12-29 00:40 | PN ---
DATE: 12/28/2017 PULMONARY PROGRESS NOTE REFERRING PHYSICIAN: Aguila Triana MD SUBJECTIVE: He is examined and seen in oncology chair, status post chemotherapy, getting hydration. No headache, no rhinitis. Gets short of breath with exertion. No chest pain. No nausea, no vomiting. No diarrhea. Does have a leg swelling. OBJECTIVE: GENERAL: In no acute distress. VITAL SIGNS: Temperature is 98, heart rate is 75, respiratory rate is 18, blood pressure 114/66, pulse ox 100% on 3 liter nasal cannula. HEENT: Moist mucous membranes. No ulcer or thrush. NECK: Supple. No JVD. LUNGS: Have a few scattered rhonchi. HEART: S1 and S2. ABDOMEN: Soft, nontender. No organomegaly. EXTREMITIES: Does have edema. NEUROLOGICAL: Awake, alert, follows simple commands. MEDICATIONS: He is on Ambien 10 mg at bedtime p.r.n., sotalol 40 mg twice a day, Cardizem 30 mg four times a day, Colace 100 mg twice a day, DuoNeb every 4 hours, Eliquis 5 mg twice a day, Megace 40 mg daily, MiraLax 17 g daily, prednisone 30 mg daily, Protonix 20 mg daily, Robitussin DM 5 mL every 4 hours p.r.n., Tessalon Perles 100 mg three times a day. LABORATORY DATA: Shows hemoglobin 11, hematocrit 32.2, WBC 14.4, platelet is 200. Sodium of 129, potassium 4.5, chloride 97, bicarbonate 27, BUN 23, creatinine 0.6, glucose 208, calcium 8.5, AST 22, ALT 31, alk phos is 76. Albumin is 2.7. Microbiology, urine culture, there is not any growth. IMPRESSION AND PLAN: Unresectable lung cancer, status post radiation therapy, presently getting second course of chemotherapy; chronic obstructive lung disease; pneumonia; paroxysmal atrial fibrillation; activities of daily living dysfunction; fluid overloaded. Spoke to nursing staff. We will start tapering down prednisone by tomorrow. Agree with small dose of Lasix, bronchodilator. Fall precaution. Thank you and we will follow with you. Aura Yi MD
[2017-12-29] MEDS: Albuterol-Ipratrop 3 mg / 0.5 (3 ml) UD IH SCH ×4 (02:29→19:37)
[2017-12-29] MEDS: Pantoprazole 20 mg EC Tab PO SCH (06:19)
[2017-12-29 18:20] VITALS: BP 140/74
--- NOTE | 2017-12-30 03:36 | DS ---
HISTORY OF PRESENT ILLNESS: The patient is a 77-year-old male who has lung cancer, he is being treated with chemotherapy, he is on TCU for rehab. The patient is going to be discharged to follow up as an outpatient. He has had chemotherapy while he has been in the hospital. He does complain of chronic shortness of breath with exertion, although he is able to walk better. He received Neulasta post chemotherapy. PHYSICAL EXAMINATION: VITAL SIGNS: Temperature is 98.1, pulse of 75, blood pressure is 118/67, respirations 16, and O2 saturation 100%. ASSESSMENT: 1. Gait dysfunction. 2. Shortness of breath with exertion. 3. Hospital-acquired pneumonia, improved. 4. Small cell carcinoma of the lung, stage IV. 5. History of atrial fibrillation, resolved. PLAN: The patient is going to be on Ambien for sleep, he is going to be on sotalol, patient is on Cardizem, he is receiving Colace for his constipation, he is on Eliquis for anticoagulation, he is on Megace. The patient is on MiraLax for constipation. Aguila Triana MD
--- NOTE | 2017-12-30 08:08 | CON ---
DATE: 12/29/2017 SERVICE: CARDIOLOGY REASON FOR CONSULTATION: Followup, rule out severe atrial fibrillation. BRIEF CLINICAL HISTORY: This is a 76-year-old male with past medical history significant for small cell lung cancer stage IV, AFib, history of duodenal ulcer, admitted initially with cough and pneumonia, transferred to Transitional Care Unit for the continuity of care. Cardiology consult was called. The patient denies any chest pain, shortness of breath, or any palpitations. . PAST MEDICAL HISTORY: Significant for AFib and stage IV lung cancer recently diagnosed. SOCIAL HISTORY: Quit smoking many years ago. No history of alcohol abuse. CURRENT MEDICATIONS: The patient is taking prednisone 10 mg daily, Cardizem 30, Zolpidem 10 mg daily, sotalol 40 mg, Megace 200 mg, 100 mg of benzonatate, and Eliquis 5 mg b.i.d. ALLERGIES: NO KNOWN DRUG ALLERGIES. PHYSICAL EXAMINATION: VITAL SIGNS: As follows; temperature is afebrile, heart rate is 80, blood pressure 140/78. HEENT: PERRLA. Extraocular muscles intact. NECK: Supple. No carotid bruit. No thyromegaly. No JVD. CHEST: Clear to auscultation. HEART: S1 and S2 regular. ABDOMEN: Soft. EXTREMITIES: Clubbing and cyanosis negative. LABORATORY DATA: Blood workup as follows; WBC 14.4, hemoglobin 11, hematocrit 32.2, and platelet count is 200. Chemistry shows sodium 129, potassium 4.5, chloride 97, bicarb 27, anion gap of 10, BUN 23, creatinine 0.7, total protein 2.7. 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 Currently, the patient is stable. Normal sinus. I will continue current medication including Eliquis. Continue Cardizem. We will follow with you. Thank you, Dr. Triana for providing us the opportunity in taking care of the patient, Salvador Alvarenga. We will follow with you. Aura Orozco MD
--- NOTE | 2018-01-01 08:43 | PN ---
DATE: 12/29/2017 PULMONARY PROGRESS NOTE REFERRING PHYSICIAN: Aguila Triana MD SUBJECTIVE: He is seen in the Oncology Department. Getting IV hydration. Finished off his chemotherapy. Want to go home. No headache. No rhinitis. No cough. No nausea. No vomiting. No diarrhea. Does have a leg swelling. OBJECTIVE: GENERAL: In no acute distress. VITAL SIGNS: Temperature is 98, heart rate is 75, blood pressure 114/66, pulse ox 99% on 3 L nasal cannula. HEENT: Moist mucous membrane. No ulcer or thrush noted. NECK: Supple. No JVD. LUNGS: Have a few crackles at the bases. HEART: S1 and S2. ABDOMEN: Soft and nontender. No organomegaly. EXTREMITIES: Does have edema. NEUROLOGICAL: Awake and alert. Follows simple command. MEDICATIONS: Ambien 10 mg at bedtime, sotalol 40 mg twice a day, diltiazem 30 mg four times a day, Colace 100 mg twice a day, DuoNeb every 4 hours, Eliquis 5 mg twice a day, Megace 40 mg daily, MiraLax 17 g daily, prednisone 30 mg daily, Protonix 40 mg daily, dexamethasone 5 mg every 4 hours p.r.n., Tessalon Perles 100 mg three times a day. LABORATORY DATA: Reviewed. No new lab is available since yesterday. IMPRESSION AND PLAN: Unresectable lung cancer, status post radiation and chemotherapy, being hydrated after chemotherapy; chronic obstructive lung disease; pneumonia; paroxysmal atrial fibrillation. Pulmonary point of view, he is doing well. Continue bronchodilator, aspiration precaution. Need to watch lower extremities closely. Persistent edema. May need small dose of diuretics. For now, he is not complaining about any shortness of breath. We will leave him as is for now. Thank you and we will follow with you. Aura Yi MD
== END 2017-12-29 20:52 | disposition home health service (06) | DRG 91 ==
LOC: TRCU 18:25
PROVIDERS: ADMIT Internal Medicine Nephrology; ATTEND Internal Medicine Nephrology
PROC: F07Z9ZZ Gait Training/Functional Ambulation Treatment (ICD-10-PCS; principal; 2017-12-22)
PROC: F07Z5YZ Bed Mobility Treatment using Other Equipment (ICD-10-PCS; 2017-12-22)
PROC: F07L6ZZ Therapeutic Exercise Treatment of Musculoskeletal System - Lower Back / Lower Extremity (ICD-10-PCS; 2017-12-24)
PROC: F08Z2ZZ Grooming/Personal Hygiene Treatment (ICD-10-PCS; 2017-12-25)
PROC: F08Z1ZZ Dressing Techniques Treatment (ICD-10-PCS; 2017-12-25)
PROC: 3E04305 Introduction of Other Antineoplastic into Central Vein, Percutaneous Approach (ICD-10-PCS; 2017-12-26)
DX: R26.9 Unspecified abnormalities of gait and mobility (principal); J18.9 Pneumonia, unspecified organism; C34.90 Malignant neoplasm of unspecified part of unspecified bronchus or lung; C78.7 Secondary malignant neoplasm of liver and intrahepatic bile duct; C7A.8 Other malignant neuroendocrine tumors; J44.0 Chronic obstructive pulmonary disease with (acute) lower respiratory infection; J44.1 Chronic obstructive pulmonary disease with (acute) exacerbation; R64 Cachexia; I48.0 Paroxysmal atrial fibrillation; I50.9 Heart failure, unspecified; R09.02 Hypoxemia; Y95 Nosocomial condition; K59.00 Constipation, unspecified; Z68.22 Body mass index [BMI] 22.0-22.9, adult; Z87.891 Personal history of nicotine dependence; Z79.01 Long term (current) use of anticoagulants; Z87.11 Personal history of peptic ulcer disease

== ENCOUNTER 2018-04-18 07:20 | Outpatient (CLI) | payer MEDICARE | END 2018-04-18 07:21 | disposition home or self-care (01) | LOC: PET-BROA 07:20 | DX: C34.90 Malignant neoplasm of unspecified part of unspecified bronchus or lung (principal); J43.2 Centrilobular emphysema; J90 Pleural effusion, not elsewhere classified; M48.56XA Collapsed vertebra, not elsewhere classified, lumbar region, initial encounter for fracture ==

== ENCOUNTER 2018-04-26 17:56 | Inpatient (IN) | payer MEDICARE, OTHER ==
[2018-04-26 18:10] VITALS: BMI 23.3
--- NOTE | 2018-04-26 18:59 | ED PDOC ---
Arrival/HPI - General Historian: Patient - History of Present Illness Narrative History of Present Illness (Text): 04/26/18 18:56 77 y/o M with PMHx of small cell lung ca, atrial fibrillation presents to ED after being brought to ER after pt experiences shortness of breath during infusion clinic earlier today. Per Dr. Bullard's SBAR hand-off sheet, pt has "failure to thrive s/p chemo and pt is confused/forgetful." Upon interview, pt has garbled speech, however denies any acute complaints including fevers, chills, headache, dizziness, chest pain, palpitations, SOB, n/v/c/d dysuria. PMD: Dr. Bullard Time/Duration: Prior to Arrival Symptom Onset: Gradual Symptom Course: Unchanged <Geoff Hernandez - Last Filed: 04/26/18 20:24> <Sebastian Ruiz - Last Filed: 04/26/18 20:53> - General Chief Complaint: Shortness Of Breath Time Seen by Provider: 04/26/18 17:59 Past Medical History - Provider Review Nursing Documentation Reviewed: Yes - Infectious Disease Hx of Infectious Diseases: None - Tetanus Immunization Tetanus Immunization: Unknown - Past Medical History Past Medical History: No Previous - Cardiac Hx Cardiac Disorders: No - Pulmonary Hx Respiratory Disorders: No - Neurological Hx Neurological Disorder: No - HEENT Hx HEENT Disorder: Yes (wears eyeglasses) - Renal Hx Renal Disorder: No - Endocrine/Metabolic Hx Endocrine Disorders: No - Hematological/Oncological Hx Blood Disorders: No - Integumentary Hx Dermatological Disorder: No - Musculoskeletal/Rheumatological Hx Musculoskeletal Disorders: No - Gastrointestinal Hx Gastrointestinal Disorders: No - Genitourinary/Gynecological Hx Genitourinary Disorders: No Hx Reproductive Disorders: No - Psychiatric Hx Psychophysiologic Disorder: No Hx Depression: No Hx Emotional Abuse: No Hx Physical Abuse: No Hx Substance Use: No - Past Surgical History Past Surgical History: No Previous - Surgical History Hx Amputation: No - Anesthesia Hx Anesthesia: No Hx Anesthesia Reactions: No Hx Malignant Hyperthermia: No - Suicidal Assessment Feels Threatened In Home Enviroment: No <Geoff Hernandez - Last Filed: 04/26/18 20:24> Family/Social History - Physician Review Nursing Documentation Reviewed: Yes Smoking Status: Unknown If Ever Smoked Hx Alcohol Use: No Hx Substance Use: No Hx Substance Use Treatment: No <Geoff Hernandez - Last Filed: 04/26/18 20:24> Family/Social History: No Known Family HX <Sebastian Ruiz - Last Filed: 04/26/18 20:53> Allergies/Home Meds <Geoff Hernandez - Last Filed: 04/26/18 20:24> <Sebastian Ruiz - Last Filed: 04/26/18 20:53> Allergies/Adverse Reactions: Allergies No Known Allergies Allergy (Unverified 11/23/17 21:06) Home Medications: Home Meds Medication Instructions Recorded Confirmed Megestrol Acetate [Megace] 200 mg PO DAILY 02/27/18 04/26/18 Melatonin 10 mg PO HS 02/27/18 04/26/18 Sotalol [Betapace] 80 mg PO BID 02/27/18 04/26/18 diltiaZEM [Cardizem] 120 mg PO DAILY 02/27/18 04/26/18 Ibuprofen [Advil] 200 mg PO DAILY 03/22/18 04/26/18 metOLazone [Zaroxolyn] 1 tab PO MWF 03/22/18 04/26/18 Review of Systems - Review of Systems Constitutional: Normal Eyes: Normal ENT: Normal Respiratory: Normal Cardiovascular: Normal Gastrointestinal: Normal Genitourinary Male: Normal Musculoskeletal: Normal Skin: Normal Neurological: Normal Endocrine: Normal Hemo/Lymphatic: Normal Psychiatric: Normal <Geoff Hernandez - Last Filed: 04/26/18 20:24> Physical Exam Vital Signs Reviewed: Yes Vital Signs Temp Pulse Resp BP Pulse Ox 04/26/18 18:34 97.5 F L 81 19 125/73 95 Temperature: Afebrile Blood Pressure: Normal Pulse: Regular Respiratory Rate: Normal Appearance: Positive for: Well-Appearing, Non-Toxic, Comfortable Pain Distress: None Mental Status: Positive for: Alert and Oriented X 3 - Systems Exam Head: Present: Atraumatic, Normocephalic Pupils: Present: PERRL Extroacular Muscles: Present: EOMI Conjunctiva: Present: Normal Mouth: Present: Moist Mucous Membranes Neck: Present: Normal Range of Motion Respiratory/Chest: Present: Clear to Auscultation, Good Air Exchange. No: Respiratory Distress, Accessory Muscle Use Cardiovascular: Present: Regular Rate and Rhythm, Normal S1, S2. No: Murmurs Abdomen: No: Tenderness, Distention, Peritoneal Signs Back: Present: Normal Inspection Upper Extremity: Present: Normal Inspection. No: Cyanosis, Edema Lower Extremity: Present: Normal Inspection. No: Edema Neurological: Present: GCS=15, CN II-XII Intact, Speech Normal Skin: Present: Warm, Dry, Normal Color, Other (R IJ central port noted). No: Rashes Psychiatric: Present: Alert, Oriented x 3, Normal Insight, Normal Concentration <Geoff Hernandez - Last Filed: 04/26/18 20:24> Vital Signs Temp Pulse Resp BP Pulse Ox 04/26/18 18:55 97 04/26/18 18:34 97.5 F L 81 19 125/73 95 <Sebastian Ruiz - Last Filed: 04/26/18 20:53> Medical Decision Making ED Course and Treatment: 04/26/18 19:04 Impression: 77 y/o M with PMHx of small cell cancer, Afib presents to ED after being brought down from infusion clinic for failure to thrive, shortness of breath Prior notes and results have been reviewed Differential diagnosis includes but is not limited to: failure to thrive shortness of breath Plan: Labs EKG Chest xray Reassess & dispo - RAD Interpretation Radiology Orders: 04/26/18 18:54 CHEST PORTABLE [RAD] Stat - EKG Interpretation EKG Interpretation (Text): 04/26/18 19:02 NSR HR: 81 bpm QTc: 443ms <Geoff Hernandez - Last Filed: 04/26/18 20:24> ED Course and Treatment: Seen and examined with resident. 77 year old M p/w forgetfulness, general weakness. On exam, chronically ill appearing. - Lab Interpretations Lab Results: pO2 44 mm/Hg (30-55) 04/26/18 19:30 VBG pH 7.30 (7.32-7.43) L 04/26/18 19:30 VBG pCO2 46.0 (40-60) 04/26/18 19:30 VBG HCO3 22.6 mmol/l (21-28) 04/26/18 19:30 VBG Total CO2 24.0 mmol.L (22-28) 04/26/18 19:30 VBG O2 Sat (Calc) 76.3 % (40-65) H 04/26/18 19:30 VBG Base Excess -4.0 mmol/L (0.0-2.0) L 04/26/18 19:30 VBG Potassium 5.3 mmol/L (3.6-5.2) H 04/26/18 19:30 Sodium 131.0 mmol/L (132-148) L 04/26/18 19:30 Chloride 100.0 mmol/L (98-107) 04/26/18 19:30 Glucose 188 mg/dl (75-110) H 04/26/18 19:30 Lactate 2.2 mmol/L (0.7-2.1) H 04/26/18 19:30 FiO2 21.0 % 04/26/18 19:30 NT-Pro-B Natriuret Pep 1010 pg/mL (0-450) H 04/26/18 19:45 Total Bilirubin 0.4 mg/dL (0.2-1.3) 04/26/18 19:45 AST 29 U/L (17-59) 04/26/18 19:45 ALT 48 U/L (7-56) 04/26/18 19:45 Alkaline Phosphatase 68 U/L (38-126) 04/26/18 19:45 Total Protein 6.5 g/dL (5.8-8.3) 04/26/18 19:45 Albumin 3.0 g/dL (3.0-4.8) 04/26/18 19:45 Globulin 3.5 gm/dL 04/26/18 19:45 Albumin/Globulin Ratio 0.9 (1.1-1.8) L 04/26/18 19:45 Urine Color Yellow (YELLOW) 04/26/18 20:00 Urine Appearance Sl cloudy (CLEAR) 04/26/18 20:00 Urine pH 6.0 (4.7-8.0) 04/26/18 20:00 Ur Specific [place] 1.025 (1.005-1.035) 04/26/18 20:00 Urine Protein Trace mg/dL (<30 mg/dL) H 04/26/18 20:00 Urine Glucose (UA) Negative mg/dL (NEGATIVE) 04/26/18 20:00 Urine Ketones Negative mg/dL (NEGATIVE) 04/26/18 20:00 Urine Blood Small (NEGATIVE) H 04/26/18 20:00 Urine Nitrate Negative (NEGATIVE) 04/26/18 20:00 Urine Bilirubin Negative (NEGATIVE) 04/26/18 20:00 Urine Urobilinogen 0.2 E.U./dL (<1 E.U./dL) 04/26/18 20:00 Ur Leukocyte Esterase Negative Alexandra/uL (NEGATIVE) 04/26/18 20:00 Urine RBC 2 - 5 /hpf (0-2) H 04/26/18 20:00 Urine WBC 0 - 2 /hpf (0-6) 04/26/18 20:00 Ur Epithelial Cells 0 - 2 /hpf (0-5) 04/26/18 20:00 Urine Bacteria Few /hpf (NONE) 04/26/18 20:00 - RAD Interpretation Radiology Orders: 04/26/18 18:54 CHEST PORTABLE [RAD] Stat - Medication Orders Current Medication Orders: Sodium Chloride (Sodium Chloride 0.9%) 1,000 mls @ 75 mls/hr IV .[id number] STA Stop: 04/27/18 09:36 <Sebastian Ruiz - Last Filed: 04/26/18 20:53> - PA / [employer]END[employer] / Resident Statement / has reviewed & agrees with the documentation as recorded. / has examined the patient and agrees with the treatment plan. <Geoff Hernandez - Last Filed: 04/26/18 20:24> Disposition/Present on Arrival - Present on Arrival Any Indicators Present on Arrival: No History of DVT/PE: No History of Uncontrolled Diabetes: No Urinary Catheter: No History of Decub. Ulcer: No History Surgical Site Infection Following: None <Geoff Hernandez - Last Filed: 04/26/18 20:24> - Disposition Have Diagnosis and Disposition been Completed?: Yes Disposition Time: 20:00 Patient Plan: Admission <Sebastian Ruiz - Last Filed: 04/26/18 20:53> - Disposition Diagnosis: Small cell lung cancer, Failure to thrive, Dehydration Disposition: HOSPITALIZED Condition: FAIR
[2018-04-26 19:29] LABS: HEMOGLOBIN 10.3 g/dL (14.0-18.0); MEAN CELL VOLUME 96.4 fl (80.0-105.0); MEAN CORPUSCULAR HEMOGLOBIN 31.2 pg (25.0-35.0); MEAN CORPUSCULAR HGB CONC 32.4 g/dl (31.0-37.0); MEAN PLATELET VOLUME 9.1 fl (7.0-11.0); RBC 3.3 10^6/uL (3.5-6.1); RED CELL DISTRIBUTION WIDTH 16.5 % (11.5-14.5); WHITE BLOOD COUNT 11.9 10^3/uL (4.5-11.0)
[2018-04-26 19:30] LABS: BASO % 0.1 % (0.0-3.0); EOS % 0.1 % (1.5-5.0); GRAN # 10.43 (1.4-6.5); GRAN % 87.9 % (50.0-68.0); LYMPH # 0.9 (1.2-3.4); LYMPH % 7.9 % (22.0-35.0); MONO # 0.5 (0.1-0.6)
[2018-04-26 19:31] LABS: BASO # 0.01 K/mm3 (0.0-2.0)
[2018-04-26 19:37] LABS: VENOUS BLOOD GAS PO2 44 mm/Hg (30-55)
[2018-04-26 20:16] LABS: ALB/GLOB RATIO 0.9 (1.1-1.8); ALT/SGPT 48 U/L (7-56); AST/SGOT 29 U/L (17-59); BLOOD UREA NITROGEN 23 mg/dL (7-21); CALCIUM 8.1 mg/dL (8.4-10.5); GFR NON-AFRICAN AMERICAN > 60
[2018-04-26] MEDS ORDERED: Sodium Chloride 0.9% 1,000 ML IV STA (20:17)
[2018-04-26 20:21] LABS: B-TYPE NATRIURETIC PEPTIDE 1010 pg/mL (0-450)
[2018-04-26 20:23] LABS: URINE BILIRUBIN NEGATIVE (NEGATIVE); URINE BLOOD SMALL (NEGATIVE); URINE GLUCOSE (UA) NEGATIVE (NEGATIVE); URINE LEUKOCYTE ESTERASE NEGATIVE Leu/uL (NEGATIVE); URINE PROTEIN TRACE mg/dL (<30 mg/dL); URINE UROBILINOGEN 0.2 E.U./dL (<1 E.U./dL)
[2018-04-26 20:26] LABS: URINE COLOR YELLOW (YELLOW)
[2018-04-26 20:27] LABS: URINE APPEARANCE SL CLOUDY (CLEAR)
[2018-04-26 20:42] LABS: URINE BACTERIA FEW /hpf; URINE EPITHELIAL CELLS 0 - 2 /hpf (0-5); URINE WBC 0 - 2 /hpf (0-6)
[2018-04-26] MEDS: Sodium Chloride 0.9% 1,000 ML IV SCH (23:11)
[2018-04-27 00:17] LABS: VENOUS BLOOD GAS BASE EXCESS 0.6 mmol/L (0.0-2.0); VENOUS BLOOD GAS PO2 32 mm/Hg (30-55); VENOUS BLOOD PH 7.36 (7.32-7.43)
--- NOTE | 2018-04-27 02:21 | HP ---
DATE OF EXAM: 04/26/2018 This is Salvador Alvarenga's admission history and physical. For Dr. Bullard. CHIEF COMPLAINT: Shortness of breath. HISTORY OF PRESENT ILLNESS: The patient is a 77-year-old male seen in the outpatient clinic earlier today with questionable mental status change and increasing shortness of breath with possible failure to thrive. The patient was reported to be confused and forgetful. With this, the patient is now admitted by the emergency room for evaluation and treatment as indicated. At present, he appears to be in no acute distress. 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 The patient also suffers from atrial fibrillation treated with sotalol, history of pneumothorax, COPD, cachexia of malignancy, insomnia, pedal edema, gastric ulcer, gastritis, cough, failure to thrive. ALLERGIES: NO KNOWN ALLERGIES. MEDICATIONS: Include Cardizem, sotalol, melatonin, prednisone, Zaroxolyn, Megace, nebulizer treatments. FAMILY HISTORY AND SOCIAL HISTORY: Former smoker, quit 5 years ago; occasional beer once a week. Otherwise, noncontributory. and son were at the bedside. REVIEW OF SYSTEMS: Twelve-point review of systems was done, which was negative to questioning except for items mentioned in the history of present illness. PHYSICAL EXAMINATION: VITAL SIGNS: Temperature 98.2, pulse 89, respirations 18, blood pressure 122/72, pulse ox 97%. HEENT: He appears cachectic. Temples are sunken. Tongue is dry. NECK: Supple. HEART: Regular rate. Occasional ectopic beat. LUNGS: Scattered rhonchi. Decreased breath sounds right greater than left. ABDOMEN: Scaphoid, nontender. EXTREMITIES: +1 edema of the feet. NEUROLOGIC: Awake and alert at present with episodes of confusion earlier. SKIN: Warm and dry. LABORATORY DATA: The patient's labs were done. White blood cell count of 11.9, hemoglobin 10.3, hematocrit 31.8, platelet count 367,000. Metabolic panel shows a BUN of 23, normal creatinine of 0.7, calcium of 8.1, B-natriuretic peptide of 1010. The patient's chest x-ray was done and has not been read. ASSESSMENT: For this patient is that of mental status change, exacerbation of chronic obstructive pulmonary disease, stage IV metastatic lung cancer small cell with liver metastasis and vertebral metastasis, neuroendocrine carcinoma, gastric ulcer, neutropenia history, history of pneumothorax, chronic obstructive pulmonary disease, cachexia of malignancy. PLAN: For this patient after conversation with Dr. Bullard is to ask for consult with Dr. Alvarenga, neurology for mental status change; also Dr. Yi, pulmonary and Dr. Orozco, his supervisor winter. We will continue present medical regimen. Monitor clinically with labs and physical exam. This is a complex patient with a comprehensive medically necessary and appropriate visit carried out in excess of 40 minutes with the patient's questions answered to his satisfaction. Erasmo Briggs MD
[2018-04-27] MEDS: MELATONIN 10 MG PO SCH ×2 (04:43→22:05)
[2018-04-27 06:49] LABS: BASO # 0.02 K/mm3 (0.0-2.0); BASO % 0.2 % (0.0-3.0); EOS # 0.1 (0.0-0.7); EOS % 0.4 % (1.5-5.0); GRAN # 10.22 (1.4-6.5); GRAN % 82.3 % (50.0-68.0); LYMPH # 1.2 (1.2-3.4); LYMPH % 9.3 % (22.0-35.0); MEAN CELL VOLUME 95.6 fl (80.0-105.0); MEAN CORPUSCULAR HEMOGLOBIN 30.7 pg (25.0-35.0); MEAN CORPUSCULAR HGB CONC 32.1 g/dl (31.0-37.0); MEAN PLATELET VOLUME 8.4 fl (7.0-11.0); MONO % 7.8 % (1.0-6.0); RBC 2.93 10^6/uL (3.5-6.1); RED CELL DISTRIBUTION WIDTH 16.3 % (11.5-14.5); WHITE BLOOD COUNT 12.4 10^3/uL (4.5-11.0)
[2018-04-27 07:22] LABS: ALB/GLOB RATIO 0.9 (1.1-1.8); ALBUMIN 2.8 g/dL (3.0-4.8); ALT/SGPT 50 U/L (7-56); AST/SGOT 48 U/L (17-59); BLOOD UREA NITROGEN 20 mg/dL (7-21); GFR NON-AFRICAN AMERICAN > 60
--- NOTE | 2018-04-27 09:25 | RAD ---
Date of service: 04/26/2018 HISTORY: SOB COMPARISON: 12/21/2017 FINDINGS: LUNGS: There is vascular congestion. Bilateral interstitial infiltrates PLEURA: No significant pleural effusion identified, no pneumothorax apparent. CARDIOVASCULAR: No aortic atherosclerotic calcification present. Normal cardiac size. No pulmonary vascular congestion. OSSEOUS STRUCTURES: No significant abnormalities. VISUALIZED UPPER ABDOMEN: Normal. OTHER FINDINGS: Port-A-Cath IMPRESSION: Vascular congestion. Bilateral interstitial infiltrates
[2018-04-27] MEDS: diltiaZEM 120 mg/24 Hours CD Cap PO SCH (10:25)
[2018-04-27] MEDS: metOLazone 2.5 MG TAB PO SCH (10:25)
--- NOTE | 2018-04-27 13:38 | CON ---
DATE: 04/27/2018 PULMONARY CONSULTATION NOTE REFERRING PHYSICIAN: Erasmo Briggs MD REASON FOR CONSULT: Lung cancer, shortness of breath. HISTORY OF PRESENT ILLNESS: This is a 77-year-old male with known history of unresectable lung cancer been on radiation and chemotherapy, chronic obstructive lung disease, history of paroxysmal atrial fibrillation, who presented to the emergency room from the Infusion Clinic complaining of shortness of breath. The patient today complained of cough. Denies any shortness of breath, does not appear to be in any acute distress. PAST MEDICAL HISTORY: Stage IV metastatic lung caner with small-cell lytic lesions T7, liver metastasis, extensive mediastinal hilar adenopathy, status post radiation therapy, chemotherapy, atrial fibrillation, history of pneumothorax, COPD, cachexia, insomnia, gastritis, failure to thrive, gastric ulcers. ALLERGIES: NO KNOWN ALLERGIES. FAMILY HISTORY: No cardiopulmonary disease reported. SOCIAL HISTORY: Former smoker, drinks one beer a week. No illicit drug use. MEDICATIONS: Reviewed. Eliquis 5 mg twice a day, Tessalon Perles 100 mg three times a day p.r.n., Cardizem 120 mg daily, Pepcid 20 mg twice a day, Robitussin 5 mL every 4 hours p.r.n, for cough, metolazone 2.5 mg Monday, Monday, and Monday, melatonin 10 mg at bedtime, prednisone 10 mg daily, sodium chloride 0.9% 1000 mL at 40 mL per hour, sotalol 80 mg twice a day. REVIEW OF SYSTEMS: The patient reports productive cough. Denies shortness of breath. No headache, rhinitis, chest pain, abdominal pain, nausea, vomiting, diarrhea, leg pain or leg swelling reported. PHYSICAL EXAMINATION: GENERAL: In no acute distress. VITAL SIGNS: Blood pressure 109/67, pulse 78, temperature 98.1 and oxygen saturation 95%. HEENT: Moist mucous membranes. NECK: Supple. No JVD. LUNGS: Scattered rhonchi bilaterally. CARDIOVASCULAR: S1 and S2 audible. ABDOMEN: Soft and nontender. No distension. No organomegaly. EXTREMITIES: No bilateral lower extremity edema. NEUROLOGICAL: Awake, alert and verbal. Speaks in garbled speech. Follows simple commands. LABORATORY DATA: Reviewed. WBC 12.4, RBC 2.93, hemoglobin 9, hematocrit 28 and platelets 272. Sodium 133, potassium 3.9, chloride 102, carbon dioxide 25, anion gap 10, BUN 20, creatinine 0.7, GFR greater than 60, random glucose 117, calcium 8, total bilirubin 0.4, AST 48, ALT 50, alkaline phosphatase 68, ProBNP 1010. Total protein 6.1, albumin 2.8, globulin 3.3 and albumin-globulin ratio 0.9. Chest x-ray vascular congestion, bilateral interstitial infiltrates. IMPRESSION AND PLAN: Unresectable lung cancer requiring radiation and chemotherapy, chronic obstructive lung disease, history of paroxysmal atrial fibrillation. The patient has metastatic lung cancer. We will order a chest CT. Continue inhaled bronchodilators. We will order procalcitonin level to be done. We will add inhaled bronchodilators, gastric prophylaxis. We will add sequential compression device for deep venous thrombosis prophylaxis due to current anemia and drop in hemoglobin. Pending Palliative Care consult. Continue Cardiology consult. This patient was seen and examined with Dr. Yi. Discussed assessment and plan as described above. Thank you for this consult and we will follow with you. Juan Carlos Prudejean, CASE SPECIALIST Aura Yi MD [facility]
--- NOTE | 2018-04-27 14:29 | CT ---
Date of service: 04/27/2018 PROCEDURE: CT Chest without contrast HISTORY: evaluate lung parenchyma COMPARISON: 12/15/2017 CT TECHNIQUE: Contiguous axial images were obtained through the chest without intravenous contrast enhancement. Sagittal and coronal reconstructions were performed. Radiation dose: Total exam DLP = 347.85 mGy-cm. This CT exam was performed using one or more of the following dose reduction techniques: Automated exposure control, adjustment of the mA and/or kV according to patient size, and/or use of iterative reconstruction technique. FINDINGS: LUNGS: Multi focal infiltrates are seen. Alveolar infiltrates are seen in the upper lobes bilaterally as well as the right lower lobe. There is sparing of the left lower lobe and right middle lobe. The infiltrates have increased since the prior exam MEDIASTINUM: Unremarkable thoracic aorta. No aneurysm. Moderate cardiomegaly main pulmonary artery unremarkable. No vascular congestion. No lymphadenopathy. Aortic and coronary artery calcification PLEURA: Small right effusion BONES: Lytic and sclerotic metastatic lesions are seen throughout the spine. These are unchanged. UPPER ABDOMEN: Grossly unremarkable. OTHER FINDINGS: None. IMPRESSION: Multi focal pneumonia. Lytic and sclerotic metastatic lesions throughout the spine unchanged
[2018-04-27] MEDS ORDERED: Gadodiamide 287 MG/ML VIAL (15ML) IV ONE (15:28)
[2018-04-27] MEDS: Meropenem IV 1 gm in NS 1 GM/50 ML BAG IVPB SCH ×2 (15:59→22:03)
[2018-04-27] MEDS: Vancomycin 1gm in NS 250ml 1 GM/250 ML BAG IVPB SCH (15:59)
--- NOTE | 2018-04-27 17:36 | MRI ---
Date of service: 04/27/2018 PROCEDURE: MRI BRAIN WITH AND WITHOUT CONTRAST HISTORY: AMS with stage 4 lung cancer COMPARISON: Comparison made with prior CT scan of the brain dated 02/09/2018. TECHNIQUE: Multiplanar, multisequence MR images of the brain were obtained with and without intravenous contrast enhancement. 15 cc of Omnipaque contrast material injected for this exam FINDINGS: HEMORRHAGE: No acute parenchymal, subarachnoid or extra-axial hemorrhage.. No evidence of hemosiderin deposition identified on gradient echo weighted sequence. DWI: No evidence of an acute or early subacute infarction. BRAIN PARENCHYMA: Mild chronic periventricular white matter ischemic changes seen extending peripherally into the deep and to a lesser degree subcortical white matter both cerebral hemispheres. In addition, there are scattered multiple discrete focal areas of increased T2 signal seen scattered about the deep and subcortical white matter both cerebral hemispheres also felt to be a small vessel disease.. Additionally, faint areas of increased T2 signal also noted within the midpons region. None of these changes exhibit restricted diffusion... Note however sequela of concomitant sequela of chemotherapy if administered not excluded. Clinical correlation recommended. Significant generalized volume loss evidenced by large mid of the ventricles and sulci ENHANCEMENT: No enhancing parenchymal nor extra-axial masses or collections seen at this time to suggest metastatic disease. No definitive evidence of abnormal meningeal enhancement.. VENTRICLES: No obstructive hydrocephalus. CRANIUM: Unremarkable. ORBITS: Orbits and contents grossly unremarkable.. PARANASAL SINUSES/MASTOIDS: Clear VASCULAR SYSTEM: Visualized major vascular flow voids at skull base patent. OTHER FINDINGS: None . IMPRESSION: No evidence of metastatic disease seen at this time. Chronic white matter ischemic changes however sequela of concomitant sequela of chemotherapy if administered not excluded. Clinical correlation recommended. Significant generalized volume loss.
--- NOTE | 2018-04-27 18:49 | PN ---
DATE: 04/27/2018 This is [facility] visit on the medical floor. For Dr. Bullard. SUBJECTIVE: The patient is a 77-year-old male, now seen lying awake in bed, somnolent, but arousable, who was admitted for increased confusion via the emergency room after being evaluated on the outpatient clinic where he was having treated for his stage IV metastatic lung cancer withe liver and bony metastases. With this the patient appears to be more lucid and in no acute distress. He at present be worked up as per consultants' recommendations with further testing as indicated. OBJECTIVE: VITAL SIGNS: Temperature 98.1, pulse 78, respirations 20, blood pressure 109/67, pulse ox 95%. GENERAL: He appears cachectic. HEENT: Tongue is dry. NECK: Supple. LUNGS: Scattered rhonchi. HEART: Regular rate. ABDOMEN: Scaphoid, soft and nontender. EXTREMITIES: Chronic +1 edema to the feet. NEUROLOGIC: Somnolent, but arousable. SKIN: Otherwise warm and dry. LABORATORY DATA: The patient's labs were done. White blood cell count of 12.4; hemoglobin 9, down from 10.3 yesterday, and will be monitored; hematocrit of 28, platelet count of 272, 000. Metabolic panel showing a nonfasting glucose 117, calcium of 8, with an otherwise normal metabolic panel. Urinalysis small amount of blood. Influenza titers were negative. The patient did have CT scan of his chest done earlier today was read as multifocal pneumonia, lytic and sclerotic metastasis lesions throughout the spine unchanged. ASSESSMENT: For this patient is that of pneumonia, stage IV metastatic neuroendocrine carcinoma, history of gastric ulcer, history of pneumothorax, chronic obstructive pulmonary disease, cachexia, malignancy, mental status change. PLAN: For this patient after conversation with consultants is to continue with his present medical regimen. We will ask for a consult with Dr. Urrutia, Infectious Disease with further recommendations regarding antibiotic therapy as indicated. The prognosis for this patient is guarded. This is a complex patient with a comprehensive medically necessary and appropriate visit carried out in excess of 20 minutes with the anemic indices also to be addressed with repeat labs in the morning with further considerations as necessary. Erasmo Briggs MD [facility] # [id number]
--- NOTE | 2018-04-27 18:56 | CON ---
DATE: 04/27/2018 NEUROLOGY CONSULTATION CHIEF COMPLIANT: Confusion. 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 CAT scan of the head showed no intracranial abnormalities. MRI of the brain showed no evidence of any metastasis to the brain. He is mildly dehydrated. CAT scan of the chest showed multifocal pneumonia, lytic and sclerotic metastatic lesions surrounding the spine, which are unchanged. The patient withdraws to localized noxious stimulus and very lethargic. PAST MEDICAL HISTORY: As above. SOCIAL HISTORY: No illicit drug use, smoking or ETOH abuse. Former smoker, quit 5 years ago, occasional beer once a week, otherwise noncontributory. REVIEW OF SYSTEMS: A 14-point review of systems is negative except as per HPI. FAMILY HISTORY: Noncontributory. MEDICATIONS: Reviewed by nurses' reconciliation sheet. ALLERGIES: NO KNOWN DRUG ALLERGIES. PHYSICAL EXAMINATION: GENERAL: The patient is cachectic looking. VITAL SIGNS: Temperature is 98.2, pulse rate of 89, respiratory rate of 19, blood pressure 127/72, and saturation 97% on room air. HEENT: Temples are sunken. Tongue is dry. NECK: Supple. No JVD noted. LUNGS: Scattered rhonchi, decreased breath sounds bilaterally. CARDIOVASCULAR: Regular rate and rhythm. No murmurs, rubs, or gallops. ABDOMEN: Soft, nontender, and nondistended. Bowel sounds are present. EXTREMITIES: 1+ pitting edema of the feet. NEUROLOGICAL: The patient is drowsy, follows commands, and intermittent confusion. Speech is hypophonic. No aphasia noted. Cranial nerves II through XII are intact. Poor attention span. Slow thought process. Motor exam; cachectic looking, moves all extremities equally, slightly increased tone throughout. Sensory; withdraws to localized noxious stimulus. DTRs are 2+ throughout and 1 at both knees and ankles. Coordination and gait are deferred for now. LABORATORY DATA: Sodium is 133, potassium is 3.9, chloride is 102, carbon dioxide is 25, BUN is 20, creatinine is 0.7, and glucose is 117. IMPRESSION: Changed mental status likely secondary to transient confusional state from underlying malignancy and cachexia of malignancy. The patient also has multifocal pneumonia, seen on CAT scan of the chest, which can make the patient intermittently altered. RECOMMENDATIONS: At this time: 1. Antibiotics with underlying multifocal pneumonia. 2. Respiratory treatments. 3. Continue with Oncology recommendations in regards to underlying stage IV carcinoma. 4. Avoid any sedative medications. 5. Delirium precautions. 6. Preliminary result of MRI of the brain showed no evidence of metastatic disease centrally, awaiting for Radiology read and continue with current and present medical management. Thank you for this consult. Dajuan Alvarenga MD
[2018-04-27] MEDS: Levalbuterol 0.63 MG/3 ML Inhal Soln UD IH PRN (19:48)
[2018-04-27] MEDS: Budesonide 0.5 mg/2 ml Inhal Susp UD IH SCH (19:48)
--- NOTE | 2018-04-27 20:27 | CARD ---
APPROVED REPORT Date of service: 04/26/2018 EKG Measurement Heart [id number] <Conclusion> Normal sinus rhythm Normal ECG
--- NOTE | 2018-04-27 22:20 | CON ---
DATE: 04/27/2018 SERVICE: Cardiology. REASON FOR CONSULTATION: Rule out paroxysmal atrial fibrillation, elevated BNP, history of lung CA, admitted with failure to thrive. BRIEF CLINICAL HISTORY: This is a 77-year-old male with past medical history significant for stage IV metastatic lung cancer, small cell lytic lesion in T4 with liver metastasis, extensive mediastinal hilar lymphadenopathy, status post radiation, status post chemo, last chemo given recently, complaining of loss of appetite and decreased body weight and failure to thrive, came into the emergency room, history of paroxysmal atrial fibrillation on sotalol. The patient denies any chest pain, denies any shortness of breath, denies any palpitation. PAST MEDICAL HISTORY: Significant for paroxysmal atrial fibrillation, history of ex-smoker, history of recently diagnosed lung CA with metastasis to the bone, metastasis to the liver as well as hilar lymphadenopathy. Denies any chest pain. Denies any shortness of breath. Denies any palpitations. Past history is significant for AFib, stage IV lung cancer as mentioned above recently diagnosed, status post chemo, status post radiation. CURRENT MEDICATIONS: The patient is taking prednisone 10 mg daily, sotalol, metolazone 1 tablet daily, Cardizem 120 mg daily, 50 mg p.o. b.i.d., Megace, ibuprofen, and Eliquis 5 mg p.o. b.i.d. ALLERGIES: NO KNOWN DRUG ALLERGIES. RECENT CARDIAC WORKUP: The patient had echocardiography done on 12/16/2017 that showed normal chamber size, normal systolic LV function, mild concentric LVH, mild tricuspid regurgitation, RV systolic pressure of 27, calculated ejection fraction of 56%, history of paroxysmal atrial fibrillation, AFib with rapid ventricular rate. Previous EKG dated 12/19/2017, reveals the patient with normal sinus and EKG on 12/16/2017, patient was in AFib, so history of paroxysmal atrial fibrillation, last echo as mentioned dated 12/16/2017, with normal chamber size, normal systolic function, mild concentric LVH, mild TR, and RV systolic pressure at 27 mmHg. SOCIAL HISTORY: Quit smoking many years ago. Denies any history of alcohol abuse. Former smoker as mentioned above. REVIEW OF SYSTEMS: As per HPI and negative except HPI though significant decrease weight loss and cachexia. PHYSICAL EXAMINATION: VITAL SIGNS: Height of the patient 5 feet 9 inches, weight of the patient 158 pounds, body mass index 24 kg/m2. Rest of the vitals temperature afebrile, heart rate 78, on admitting at one point patient yesterday with heart rate of 112, and blood pressure 109/67. HEENT: PERRLA intact. Extraocular muscles are intact. NECK: Supple. No carotid bruit or thyromegaly. CHEST: Clear to auscultation. HEART: S1 and S2 regular. ABDOMEN: Soft. EXTREMITIES: Clubbing and cyanosis negative. LABORATORY DATA: EKG shows normal sinus today. Blood workup WBC 12.4, hemoglobin 9, hematocrit 28.0, and platelet count 272. Chemistry shows sodium 133, potassium 3.9, chloride 102, carbon dioxide 25, anion gap of 10, BUN 20, and creatinine 0.7. IMPRESSION: A 77-year-old male with past medical history significant for ex-smoker, hypertension, history of recently diagnosed stage IV lung cancer with extensive metastasis to the lytic lesion to the T7 as well as mediastinal lymphadenopathy and liver mets, admitted with failure to thrive and cachexia, history of paroxysmal atrial fibrillation. The patient with multiple EKGs on 12/16/2017, with AFib; 12/18 the patient converted to normal sinus now patient in normal sinus, but goes back and forth. Briefly went into AFib, but now patient is in normal sinus on sotalol and Cardizem. RECOMMENDATIONS: Continue sotalol as blood pressure and heart rate is tolerated. Continue Cardizem as blood pressure is tolerated. Continue Eliquis. We will get the TSH and lipid profile. We will follow with you. We will get calcium and phosphate level tomorrow. We will follow with you. Thank you Dr. Briggs, for providing us opportunity in taking care of the patient, Salvador Alvarenga. We will follow with you. Aura Orozco MD
--- NOTE | 2018-04-27 23:05 | CP.PCM.CON ---
History of Present Illness - History of Present Illness History of Present Illness: 77 year old male with PMH of small cell lung cancer stage 4 on radiation and chemotherapy, COPD, atrial fibrillation, gastritis came in to [facility] because of shortness of breath for about a day, noticed during chemotherapeutic infusion yesterday. The patient apparently was brought in also because some confusion noted after the chemotherapy session. There was no note of fevers, no vomiting, no diarrhea. Full ROS is difficult to obtain since patient was found to be somewhat lethargic and patient is to undergo MRI brain. CT chest is showing multifocal pneumonia and Infectious Diseases consult is requested to further evaluate and manage. Review of Systems - Review of Systems All systems: reviewed and no additional remarkable complaints except (as per HPI) Past Patient History - Infectious Disease Hx of Infectious Diseases: None - Tetanus Immunizations Tetanus Immunization: Unknown - Past Social History Smoking Status: Former Smoker - CARDIAC Hx Cardiac Disorders: Yes Hx Cardia Arrhythmia: Yes (A-Fib) - PULMONARY Hx Respiratory Disorders: Yes Hx Pneumonia: Yes - NEUROLOGICAL Hx Neurological Disorder: No - HEENT Hx HEENT Problems: Yes (wears eyeglasses) - RENAL Hx Chronic Kidney Disease: No - ENDOCRINE/METABOLIC Hx Endocrine Disorders: No - HEMATOLOGICAL/ONCOLOGICAL Hx Blood Disorders: Yes Hx Cancer: Yes Hx Chemotherapy: Yes - INTEGUMENTARY Hx Dermatological Problems: No - MUSCULOSKELETAL/RHEUMATOLOGICAL Hx Musculoskeletal Disorders: Yes Hx Unsteady Gait: Yes - GASTROINTESTINAL Hx Gastrointestinal Disorders: No - GENITOURINARY/GYNECOLOGICAL Hx Genitourinary Disorders: No - PSYCHIATRIC Hx Psychophysiologic Disorder: No Hx Depression: No Hx Emotional Abuse: No Hx Physical Abuse: No - SURGICAL HISTORY Hx Amputation: No - ANESTHESIA Hx Anesthesia: No Hx Anesthesia Reactions: No Hx Malignant Hyperthermia: No Meds Allergies/Adverse Reactions: Allergies Allergy/AdvReac Type Severity Reaction Status Date / Time No Known Allergies Allergy Unverified 11/23/17 21:06 - Medications Medications: Current Medications Apixaban (Eliquis) 5 mg PO BID [facility]; Protocol Last Admin: 04/27/18 10:25 Dose: 5 mg Benzonatate (Tessalon Perles) 100 mg PO TID PRN PRN Reason: Cough Budesonide (Pulmicort Respules) 0.5 mg IH [id number] [facility] Diltiazem HCl (Cardizem Cd) 120 mg PO DAILY [facility] Last Admin: 04/27/18 10:25 Dose: 120 mg Famotidine (Pepcid) 20 mg PO 1000,2200 [facility] Last Admin: 04/27/18 10:25 Dose: 20 mg Guaifenesin/Dextromethorphan (Robitussin Dm) 5 ml PO Q4H PRN PRN Reason: Cough Sodium Chloride (Sodium Chloride 0.9%) 1,000 mls @ 40 mls/hr IV .Q24H [facility] Last Admin: 04/26/18 23:11 Dose: 40 mls/hr Levalbuterol HCl (Xopenex) 0.63 mg IH [id number] PRN PRN Reason: Shortness of Breath Lorazepam (Ativan) 1 mg IVP ONCE PRN; Protocol PRN Reason: Prior to MRI Stop: 04/27/18 17:30 Last Admin: 04/27/18 14:35 Dose: 1 mg Metolazone (Zaroxolyn) 2.5 mg PO MWF [facility] Last Admin: 04/27/18 10:25 Dose: 2.5 mg Melatonin [Melatonin (] 10 Mg (Home Med)) 10 mg PO HS [facility] Last Admin: 04/27/18 04:43 Dose: Not Given Prednisone (Prednisone Tab) 10 mg PO 0800 [facility] Last Admin: 04/27/18 08:22 Dose: 10 mg Sotalol HCl (Betapace) 80 mg PO BID [facility] Last Admin: 04/27/18 10:24 Dose: 80 mg Physical Exam - Constitutional Appears: Chronically Ill, Other (somewhat lethargic) - Head Exam Head Exam: NORMAL INSPECTION - Respiratory Exam Respiratory Exam: Decreased Breath Sounds - Cardiovascular Exam Cardiovascular Exam: +S1, +S2 - GI/Abdominal Exam GI & Abdominal Exam: Soft. absent: Tenderness Results - Vital Signs Recent Vital Signs: Last Vital Signs Temp 98.1 F 04/27/18 06:55 Pulse 78 04/27/18 10:25 Resp 20 04/27/18 06:55 BP 109/67 04/27/18 10:25 Pulse Ox 95 04/27/18 06:55 - Labs Result Diagrams: 04/27/18 06:15 04/27/18 06:15 Labs: Laboratory Results - last 24 hr 04/26/18 04/26/18 04/26/18 19:00 19:30 19:45 WBC 11.9 H RBC 3.30 L Hgb 10.3 L Hct 31.8 L MCV 96.4 MCH 31.2 MCHC 32.4 RDW 16.5 H Plt Count 367 MPV 9.1 Gran % 87.9 H Lymph % (Auto) 7.9 L Becker % (Auto) 4.0 Eos % (Auto) 0.1 L Baso % (Auto) 0.1 Gran # 10.43 H Lymph # (Auto) 0.9 L Becker # (Auto) 0.5 Eos # (Auto) 0.0 Baso # (Auto) 0.01 pO2 44 VBG pH 7.30 L VBG pCO2 46.0 VBG HCO3 22.6 VBG Total CO2 24.0 VBG O2 Sat (Calc) 76.3 H VBG Base Excess -4.0 L VBG Potassium 5.3 H Sodium 131.0 L 132 Chloride 100.0 104 Glucose 188 H Lactate 2.2 H FiO2 21.0 Potassium 4.1 Carbon Dioxide 23 Anion Gap 11 BUN 23 H Creatinine 0.7 L Est GFR ( Amer) > 60 Est GFR (Non-Af Amer) > 60 Random Glucose 145 H Calcium 8.1 L Total Bilirubin 0.4 AST 29 ALT 48 Alkaline Phosphatase 68 NT-Pro-B Natriuret Pep 1010 H Total Protein 6.5 Albumin 3.0 Globulin 3.5 Albumin/Globulin Ratio 0.9 L Venous Blood Potassium 5.3 H Urine Color Urine Appearance Urine pH Ur Specific [place] Urine Protein Urine Glucose (UA) Urine Ketones Urine Blood Urine Nitrate Urine Bilirubin Urine Urobilinogen Ur Leukocyte Esterase Urine RBC Urine WBC Ur Epithelial Cells Urine Bacteria Influenza Typ A,B (EIA) 04/26/18 04/26/18 04/26/18 20:00 21:19 23:25 WBC RBC Hgb Hct MCV MCH MCHC RDW Plt Count MPV Gran % Lymph % (Auto) Becker % (Auto) Eos % (Auto) Baso % (Auto) Gran # Lymph # (Auto) Becker # (Auto) Eos # (Auto) Baso # (Auto) pO2 32 VBG pH 7.36 VBG pCO2 47.0 VBG HCO3 26.6 VBG Total CO2 28.0 VBG O2 Sat (Calc) 56.7 VBG Base Excess 0.6 VBG Potassium 4.2 Sodium 132.0 Chloride 101.0 Glucose 127 H Lactate 1.1 FiO2 21.0 Potassium Carbon Dioxide Anion Gap BUN Creatinine Est GFR ( Amer) Est GFR (Non-Af Amer) Random Glucose Calcium Total Bilirubin AST ALT Alkaline Phosphatase NT-Pro-B Natriuret Pep Total Protein Albumin Globulin Albumin/Globulin Ratio Venous Blood Potassium 4.2 Urine Color Yellow Urine Appearance Sl cloudy Urine pH 6.0 Ur Specific [place] 1.025 Urine Protein Trace H Urine Glucose (UA) Negative Urine Ketones Negative Urine Blood Small H Urine Nitrate Negative Urine Bilirubin Negative Urine Urobilinogen 0.2 Ur Leukocyte Esterase Negative Urine RBC 2 - 5 H Urine WBC 0 - 2 Ur Epithelial Cells 0 - 2 Urine Bacteria Few Influenza Typ A,B (EIA) Negative for flu a/b 04/27/18 04/27/18 06:15 06:15 WBC 12.4 H RBC 2.93 L Hgb 9.0 L Hct 28.0 L MCV 95.6 MCH 30.7 MCHC 32.1 RDW 16.3 H Plt Count 272 MPV 8.4 Gran % 82.3 H Lymph % (Auto) 9.3 L Becker % (Auto) 7.8 H Eos % (Auto) 0.4 L Baso % (Auto) 0.2 Gran # 10.22 H Lymph # (Auto) 1.2 Becker # (Auto) 1.0 H Eos # (Auto) 0.1 Baso # (Auto) 0.02 pO2 VBG pH VBG pCO2 VBG HCO3 VBG Total CO2 VBG O2 Sat (Calc) VBG Base Excess VBG Potassium Sodium 133 Chloride 102 Glucose Lactate FiO2 Potassium 3.9 Carbon Dioxide 25 Anion Gap 10 BUN 20 Creatinine 0.7 L Est GFR ( Amer) > 60 Est GFR (Non-Af Amer) > 60 Random Glucose 117 H Calcium 8.0 L Total Bilirubin 0.4 AST 48 ALT 50 Alkaline Phosphatase 68 NT-Pro-B Natriuret Pep Total Protein 6.1 Albumin 2.8 L Globulin 3.3 Albumin/Globulin Ratio 0.9 L Venous Blood Potassium Urine Color Urine Appearance Urine pH Ur Specific [place] Urine Protein Urine Glucose (UA) Urine Ketones Urine Blood Urine Nitrate Urine Bilirubin Urine Urobilinogen Ur Leukocyte Esterase Urine RBC Urine WBC Ur Epithelial Cells Urine Bacteria Influenza Typ A,B (EIA) Assessment & Plan - Assessment and Plan (Free Text) Plan: Assessment SIRS, consider sepsis due to multifocal HCAP in this patient with stage 4 lung cancer, with confusion consider toxic-metabolic encephalopathy small cell lung cancer stage 4 on radiation and chemotherapy COPD atrial fibrillation gastritis Plan started Vancomycin, Merrem and Doxycycline pending blood, sputum cx, PCT, urine Legionella Ag; reviewed CT chest showing multifocal infiltrates reviewed brain MRI - did not show mass lesions or CVA will monitor clinically discussed with Dr. Briggs overall prognosis is poor
[2018-04-28] MEDS: Vancomycin 1gm in NS 250ml 1 GM/250 ML BAG IVPB SCH ×2 (05:13→15:00)
[2018-04-28] MEDS: Meropenem IV 1 gm in NS 1 GM/50 ML BAG IVPB SCH ×3 (06:24→21:45)
[2018-04-28 07:02] LABS: BASO # 0.01 K/mm3 (0.0-2.0); BASO % 0.1 % (0.0-3.0); EOS # 0.2 (0.0-0.7); EOS % 1.3 % (1.5-5.0); GRAN # 10.88 (1.4-6.5); GRAN % 84.6 % (50.0-68.0); HEMOGLOBIN 9.5 g/dL (14.0-18.0); LYMPH # 1.1 (1.2-3.4); LYMPH % 8.2 % (22.0-35.0); MEAN CELL VOLUME 95.6 fl (80.0-105.0); MEAN CORPUSCULAR HGB CONC 31.4 g/dl (31.0-37.0); MEAN PLATELET VOLUME 8.5 fl (7.0-11.0); MONO # 0.8 (0.1-0.6); MONO % 5.8 % (1.0-6.0); RBC 3.17 10^6/uL (3.5-6.1); RED CELL DISTRIBUTION WIDTH 16.2 % (11.5-14.5); WHITE BLOOD COUNT 12.9 10^3/uL (4.5-11.0)
[2018-04-28 07:16] LABS: LDL CHOLESTEROL 58 mg/dL (0-129)
[2018-04-28 07:24] LABS: ALB/GLOB RATIO 0.9 (1.1-1.8); ALT/SGPT 67 U/L (7-56); AST/SGOT 62 U/L (17-59); BLOOD UREA NITROGEN 15 mg/dL (7-21); CALCIUM 8.5 mg/dL (8.4-10.5); GFR NON-AFRICAN AMERICAN > 60; HDL CHOLESTEROL 26 mg/dL (29-60)
[2018-04-28 07:53] LABS: IRON 13 ug/dL (45-180)
[2018-04-28 08:04] LABS: % IRON SATURATION 6 % (20-55); TOTAL IRON BINDING CAPACITY 206 ug/dL (261-462)
[2018-04-28] MEDS: Budesonide 0.5 mg/2 ml Inhal Susp UD IH SCH ×2 (08:09→19:17)
--- NOTE | 2018-04-28 10:25 | CP.PCM.PN ---
Subjective - Date & Time of Evaluation Date of Evaluation: 04/28/18 Time of Evaluation: 06:50 - Subjective Subjective: lethargic, no distress, morning bath done Reason for consultation and follow up:Cardiac evaluation and follow up of history of atrial fibrillation, history of small cell lung cancer stage 4 on radiation and chemotherapy, COPD, admitted for failure to thrive Seen and examined by me and Dr. Macario Objective - Vital Signs/Intake and Output Vital Signs (last 24 hours): Temp Pulse Resp BP Pulse Ox 98.2 F 86 20 95/62 L 93 L 04/28/18 08:59 04/28/18 08:59 04/28/18 08:59 04/28/18 08:59 04/28/18 08:59 Intake and Output: 04/28/18 04/28/18 06:59 18:59 Intake Total 0 Balance 0 - Medications Medications: Current Medications Apixaban (Eliquis) 5 mg PO BID [facility]; Protocol Last Admin: 04/27/18 18:23 Dose: Not Given Benzonatate (Tessalon Perles) 100 mg PO TID PRN PRN Reason: Cough Budesonide (Pulmicort Respules) 0.5 mg IH [id number] [facility] Last Admin: 04/28/18 08:09 Dose: 0.5 mg Diltiazem HCl (Cardizem Cd) 120 mg PO DAILY [facility] Last Admin: 04/27/18 10:25 Dose: 120 mg Doxycycline Hyclate (Doryx) 100 mg PO Q12 [facility]; Protocol Last Admin: 04/27/18 22:05 Dose: 100 mg Famotidine (Pepcid) 20 mg PO 1000,2200 [facility] Last Admin: 04/27/18 22:05 Dose: 20 mg Guaifenesin/Dextromethorphan (Robitussin Dm) 5 ml PO Q4H PRN PRN Reason: Cough Sodium Chloride (Sodium Chloride 0.9%) 1,000 mls @ 40 mls/hr IV .Q24H [facility] Last Admin: 04/26/18 23:11 Dose: 40 mls/hr Meropenem (Merrem Iv 1 Gm Premix) 1 gm in 50 mls @ 100 mls/hr IVPB Q8 [facility]; Protocol Last Admin: 04/28/18 06:24 Dose: 100 mls/hr Vancomycin HCl (Vancomycin 1gm) 1 gm in 250 mls @ 167 mls/hr IVPB Q12H [facility]; Protocol Last Admin: 04/28/18 05:13 Dose: 167 mls/hr Levalbuterol HCl (Xopenex) 0.63 mg IH [id number] PRN PRN Reason: Shortness of Breath Last Admin: 04/27/18 19:48 Dose: 0.63 mg Metolazone (Zaroxolyn) 2.5 mg PO MWF [facility] Last Admin: 04/27/18 10:25 Dose: 2.5 mg Melatonin [Melatonin (] 10 Mg (Home Med)) 10 mg PO HS [facility] Last Admin: 04/27/18 22:05 Dose: Not Given Prednisone (Prednisone Tab) 10 mg PO 0800 [facility] Last Admin: 04/27/18 08:22 Dose: 10 mg Sotalol HCl (Betapace) 80 mg PO BID [facility] Last Admin: 04/27/18 17:08 Dose: Not Given - Labs Labs: 04/28/18 06:20 04/28/18 06:20 - Constitutional Appears: Non-toxic, No Acute Distress - Head Exam Head Exam: NORMAL INSPECTION, NORMOCEPHALIC - Eye Exam Eye Exam: Normal appearance Pupil Exam: NORMAL ACCOMODATION - ENT Exam ENT Exam: Mucous Membranes Dry - Respiratory Exam Respiratory Exam: Decreased Breath Sounds, NORMAL BREATHING PATTERN - Cardiovascular Exam Cardiovascular Exam: +S1, +S2 Additional comments: right chest port - GI/Abdominal Exam GI & Abdominal Exam: Soft, Normal Bowel Sounds - Extremities Exam Extremities Exam: Full ROM, Normal Capillary Refill - Neurological Exam Additional comments: lethargic but arousable - Skin Skin Exam: Dry, Normal Color, Warm Assessment and Plan - Assessment and Plan (Free Text) Assessment: A 77 year old male who came in to the ER due to loss of appetite,weight loss, admitted for failure to thrive. 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 denies chest pain or shortness of breath. Cardiac status stable. CT of chest showed multifocal pneumonia. On IV antibiotics. Plan: No distress, lethargic Heart rate controlled Blood pressure controlled On Eliquis 5 mg BID,Cardizem 120 mg daily,Zaroxylyn 2.5 mg MWF, Prednisone 10 mg daily, Sotalol 80 mg BID Continue current treatment Continue current medications Continue IV antibiotics as ordered Nutritional support Will follow up Plan and treatment discussed with Dr. Macario
[2018-04-28] MEDS: diltiaZEM 120 mg/24 Hours CD Cap PO SCH (10:55)
[2018-04-28] MEDS: guaiFENesin DM 100 mg-10 mg/5 ml UD PO PRN (11:04)
[2018-04-28 11:39] LABS: TRANSFERRIN 150.3 mg/dL (206-381)
[2018-04-28] MEDS ORDERED: Potassium Chloride 20 mEq ER Tab PO ONE (18:06)
[2018-04-28] MEDS: Levalbuterol 0.63 MG/3 ML Inhal Soln UD IH SCH (19:17)
--- NOTE | 2018-04-28 19:40 | PN ---
DATE: 04/28/2018 PULMONARY PROGRESS NOTE REFERRING PHYSICIAN: Erasmo Briggs MD SUBJECTIVE: The patient is lying in bed. No acute distress. Reports feeling better today. No headache, rhinitis, cough, shortness of breath, chest pain, abdominal pain, nausea, vomiting, diarrhea, leg pain or leg swelling reported. PHYSICAL EXAMINATION GENERAL: No acute distress. VITAL SIGNS: Blood pressure 124/72, pulse 80, temperature 98.2, and oxygen saturation 93%. HEENT: Moist mucous membrane. NECK: Supple. No JVD. LUNGS: Few scattered rhonchi and mild wheezing bilaterally. CARDIOVASCULAR: S1 and S2 audible. ABDOMEN: Soft and nontender. No distension. No organomegaly. EXTREMITIES: No bilateral lower extremity edema. NEUROLOGICAL: Awake, alert, verbal, and follows simple commands. MEDICATIONS: Reviewed. Eliquis 5 mg twice a day, Tessalon Perles 100 mg three times a day p.r.n., Pulmicort 0.5 mg every 12 hours, Cardizem 120 mg daily, doxycycline 100 mg every 12 hours, Pepcid 20 mg twice a day, Robitussin DM 5 mL every 4 hours p.r.n., Xopenex 0.63 mg inhalation every 6 hours p.r.n., meropenem 1 g every 8 hours, metolazone 2.5 mg Monday, Monday and Monday, melatonin 10 mg at bedtime, prednisone 10 mg daily,sodium chloride 0.9% 1000 mL at 40 mL per hour, sotalol 80 mg twice a day, and vancomycin 1 gram every 12 hours. LABORATORY DATA: Reviewed. WBC 12.9, RBC 3.17, hemoglobin 9.5, hematocrit 30.3, and platelets 239. Sodium 133, potassium 3.5, chloride 98, carbon dioxide 28, anion gap 9, BUN 15, creatinine 0.6, GFR greater than 60, random glucose 146. Calcium 8.5, phosphorus 2.6, magnesium 1.9, iron 13, TIBC 206, percent saturations 6, transferrin 150.3, ferritin 569, total bilirubin 0.5, AST 62, ALT 67, alkaline phosphatase 72, total protein 6.4, albumin 3, globulin 3.4 and albumin-globulin ratio 0.9. Triglycerides 79, cholesterol 96, :LDL cholesterol 58, HDL cholesterol 26, procalcitonin less than 0.05. TSH 1.33. Chest CT shows multifocal pneumonia, lytic and metastatic lesions throughout the spine unchanged. Brain MRI shows no evidence of metastatic disease, significant generalized volume loss, chronic white matter ischemic changes. IMPRESSION AND PLAN: Unresectable lung cancer, requiring radiation and chemotherapy, chronic obstructive lung disease, history of paroxysmal atrial fibrillation, and the patient has metastatic lung cancer. Chest CT shows multifocal pneumonia, but due to procalcitonin level of less than 0.05, we believe this maybe related to the tumor and some atelectasis formed by the tumor. Continue inhaled bronchodilators and gastric prophylaxis. The patient is currently on the anticoagulation therapy. Continue antibiotic therapy. Continue steroids. The patient was seen and examined with Dr. Yi. Discussed assessment and plan as described above. Thank you for this consult and we will follow with you. Juan Carlos Paul APN Aura Yi MD [facility]
[2018-04-28] MEDS: MELATONIN 10 MG PO SCH (21:53)
--- NOTE | 2018-04-28 21:54 | PN ---
DATE: 04/28/2018 SUBJECTIVE: The patient is in bed, in no acute distress. OBJECTIVE: VITAL SIGNS: On exam, the patient's temperature is 98, blood pressure is 120/70, respiratory rate of 20, heart rate of 86. HEENT: Unremarkable. NECK: Supple. LUNGS: Have decreased breath sounds. HEART: Normal S1, S2. ABDOMEN: Soft. LABORATORY EXAMINATION: Reveals a white count of 12,900, hemoglobin of 9, and platelets of 239. BUN of 15, creatinine of 0.6. Procalcitonin less than 0.05. Urinalysis is noted. Serology is noted. Microbiology reveals the blood cultures are negative. Review of orders reveals the patient to be on doxycycline, prednisone, vancomycin, and meropenem. Negative blood cultures. Negative influenza, negative urinalysis, negative procalcitonin. The patient had a CAT scan of the chest noted. ASSESSMENT AND PLAN: A 77-year-old male with stage IV small cell lung cancer, status post chemotherapy radiation, chronic obstructive lung disease, atrial fibrillation with sepsis with multifocal healthcare-associated pneumonia, on vancomycin, meropenem, doxycycline day #3. Workup in progress. Overall, prognosis is quite poor. We will follow with you. Chon Guerra MD
[2018-04-29] MEDS: guaiFENesin DM 100 mg-10 mg/5 ml UD PO PRN ×2 (01:28→21:44)
[2018-04-29] MEDS: Vancomycin 1gm in NS 250ml 1 GM/250 ML BAG IVPB SCH (03:29)
[2018-04-29] MEDS: Meropenem IV 1 gm in NS 1 GM/50 ML BAG IVPB SCH ×3 (05:19→21:40)
[2018-04-29] MEDS: Sodium Chloride 0.9% 1,000 ML IV SCH (05:19)
[2018-04-29 05:50] LABS: BASO # 0.02 K/mm3 (0.0-2.0); BASO % 0.2 % (0.0-3.0); EOS # 0.1 (0.0-0.7); GRAN # 10.15 (1.4-6.5); GRAN % 82.8 % (50.0-68.0); HEMOGLOBIN 9.5 g/dL (14.0-18.0); LYMPH # 1.2 (1.2-3.4); LYMPH % 9.6 % (22.0-35.0); MEAN CELL VOLUME 94.9 fl (80.0-105.0); MEAN CORPUSCULAR HEMOGLOBIN 30.1 pg (25.0-35.0); MEAN CORPUSCULAR HGB CONC 31.7 g/dl (31.0-37.0); MEAN PLATELET VOLUME 8.5 fl (7.0-11.0); MONO # 0.8 (0.1-0.6); MONO % 6.4 % (1.0-6.0); RBC 3.16 10^6/uL (3.5-6.1); RED CELL DISTRIBUTION WIDTH 16.3 % (11.5-14.5); WHITE BLOOD COUNT 12.3 10^3/uL (4.5-11.0)
[2018-04-29 06:02] LABS: ALB/GLOB RATIO 0.8 (1.1-1.8); ALBUMIN 2.8 g/dL (3.0-4.8); ALT/SGPT 84 U/L (7-56); AST/SGOT 60 U/L (17-59); BLOOD UREA NITROGEN 17 mg/dL (7-21); CALCIUM 8.7 mg/dL (8.4-10.5); GFR NON-AFRICAN AMERICAN > 60
--- NOTE | 2018-04-29 07:46 | CP.PCM.PN ---
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 Macario Objective - Vital Signs/Intake and Output Vital Signs (last 24 hours): Temp Pulse Resp BP Pulse Ox 98.1 F 76 22 120/76 94 L 04/29/18 07:37 04/29/18 07:37 04/29/18 07:37 04/29/18 07:37 04/29/18 07:37 Intake and Output: 04/29/18 04/29/18 06:59 18:59 Intake Total 1010 Output Total 775 Balance 235 - Medications Medications: Current Medications Apixaban (Eliquis) 5 mg PO BID [facility]; Protocol Last Admin: 04/28/18 17:55 Dose: 5 mg Benzonatate (Tessalon Perles) 100 mg PO TID PRN PRN Reason: Cough Last Admin: 04/28/18 10:55 Dose: 100 mg Budesonide (Pulmicort Respules) 0.5 mg IH [id number] [facility] Last Admin: 04/28/18 19:17 Dose: 0.5 mg Diltiazem HCl (Cardizem Cd) 120 mg PO DAILY [facility] Last Admin: 04/28/18 10:55 Dose: 120 mg Doxycycline Hyclate (Doryx) 100 mg PO Q12 [facility]; Protocol Last Admin: 04/28/18 21:44 Dose: 100 mg Famotidine (Pepcid) 20 mg PO 1000,2200 [facility] Last Admin: 04/28/18 21:45 Dose: 20 mg Guaifenesin/Dextromethorphan (Robitussin Dm) 5 ml PO Q4H PRN PRN Reason: Cough Last Admin: 04/29/18 01:28 Dose: 5 ml Sodium Chloride (Sodium Chloride 0.9%) 1,000 mls @ 40 mls/hr IV .Q24H [facility] Last Admin: 04/29/18 05:19 Dose: 40 mls/hr Meropenem (Merrem Iv 1 Gm Premix) 1 gm in 50 mls @ 100 mls/hr IVPB Q8 [facility]; Protocol Last Admin: 04/29/18 05:19 Dose: 100 mls/hr Vancomycin HCl (Vancomycin 1gm) 1 gm in 250 mls @ 167 mls/hr IVPB Q12H [facility]; Protocol Last Admin: 04/29/18 03:29 Dose: 167 mls/hr Levalbuterol HCl (Xopenex) 0.63 mg IH [id number] PRN PRN Reason: Shortness of Breath Last Admin: 04/27/18 19:48 Dose: 0.63 mg Levalbuterol HCl (Xopenex) 0.63 mg IH TIDRESP [facility] Last Admin: 04/28/18 19:17 Dose: 0.63 mg Metolazone (Zaroxolyn) 2.5 mg PO MWF [facility] Last Admin: 04/27/18 10:25 Dose: 2.5 mg Melatonin [Melatonin (] 10 Mg (Home Med)) 10 mg PO HS [facility] Last Admin: 04/28/18 21:53 Dose: Not Given Prednisone (Prednisone Tab) 10 mg PO 0800 [facility] Last Admin: 04/28/18 10:55 Dose: 10 mg Sotalol HCl (Betapace) 80 mg PO BID [facility] Last Admin: 04/28/18 17:58 Dose: 80 mg - Labs Labs: 04/29/18 05:30 04/29/18 05:30 - Constitutional Appears: Non-toxic, No Acute Distress - Head Exam Head Exam: NORMAL INSPECTION, NORMOCEPHALIC - Eye Exam Eye Exam: Normal appearance Pupil Exam: NORMAL ACCOMODATION - ENT Exam ENT Exam: Mucous Membranes Dry - Respiratory Exam Respiratory Exam: Decreased Breath Sounds, Clear to Ausculation Bilateral, NORMAL BREATHING PATTERN - Cardiovascular Exam Cardiovascular Exam: +S1, +S2 Additional comments: right chest port - GI/Abdominal Exam GI & Abdominal Exam: Soft, Normal Bowel Sounds - Extremities Exam Extremities Exam: Full ROM, Normal Capillary Refill - Neurological Exam Neurological Exam: Alert, Awake, Oriented x3 - Psychiatric Exam Psychiatric exam: Normal Affect, Normal Mood - Skin Skin Exam: Dry, Normal Color, Warm Assessment and Plan - Assessment and Plan (Free Text) Assessment: A 77 year old male who came in to the ER due to loss of appetite,weight loss, admitted for failure to thrive. 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 denies chest pain or shortness of breath. Cardiac status stable. CT of chest showed multifocal pneumonia. On IV antibiotics. Has been lethargic but today awake and alert and verbally responsive. Plan: Awake, responsive, feels okay, No distress Mental status improved Heart rate controlled Blood pressure controlled On Eliquis 5 mg BID,Cardizem 120 mg daily,Zaroxylyn 2.5 mg MWF, Prednisone 10 mg daily, Sotalol 80 mg BID Continue current treatment Continue current medications Continue IV antibiotics as per ID Pulmonary on consult Nutritional support Will follow up Plan and treatment discussed with Dr. Macario
[2018-04-29] MEDS: Levalbuterol 0.63 MG/3 ML Inhal Soln UD IH SCH ×3 (08:00→20:22)
[2018-04-29] MEDS: Budesonide 0.5 mg/2 ml Inhal Susp UD IH SCH ×2 (08:00→20:22)
[2018-04-29] MEDS: diltiaZEM 120 mg/24 Hours CD Cap PO SCH (09:19)
--- NOTE | 2018-04-29 09:35 | PN ---
DATE: 04/29/2018 PULMONARY PROGRESS NOTE REFERRING PHYSICIAN: Erasmo Briggs MD SUBJECTIVE: The patient is lying in bed, head of bed elevated. No acute distress. No overnight events reported. The patient does report cough with phlegm. No headache, rhinitis, chest pain, abdominal pain, nausea, vomiting, diarrhea, leg pain or leg swelling reported. OBJECTIVE GENERAL: No acute distress. VITAL SIGNS: Blood pressure 120/76, pulse 76, temperature 98, and oxygen saturation 94%. HEENT: Moist mucous membranes. NECK: Supple. No JVD. LUNGS: Scattered rhonchi bilaterally. No audible wheezing. CARDIOVASCULAR: S1 and S2 audible. ABDOMEN: Soft and nontender. No distension. No organomegaly. EXTREMITIES: No bilateral lower extremity edema. NEUROLOGICAL: Awake, alert and verbal. Follows commands. MEDICATIONS: Reviewed. Eliquis 5 mg twice a day, Tessalon Perles 100 mg 3 times a day p.r.n., Pulmicort 0.5 mg every 12 hours, Cardizem 120 mg daily, doxycycline 100 mg every 12 hours, Pepcid 20 mg twice a day, Robitussin 5 mL every 4 hours p.r.n., Xopenex 0.63 mg inhalation every 6 hours p.r.n., Xopenex 0.63 mg inhalation 3 times a day, meropenem 1 g every 8 hours, metolazone 2.5 mg Monday, Monday and Monday, melatonin 10 mg at bedtime, prednisone 10 mg daily,sodium chloride 0.9% 1000 mL at 40 mL per hour, sotalol 80 mg twice a day, and vancomycin 1 g every 6 hours. LABORATORY DATA: Reviewed. WBC 12.3, RBC 3.16, hemoglobin 9.5, hematocrit 30, and platelets 197. Sodium 134, potassium 3.9, chloride 101, carbon dioxide 28, anion gap 9, BUN 17, creatinine 0.6, GFR greater than 60, random glucose 119, calcium 8.7, total bilirubin 0.4, AST 60, ALT 84, alkaline phosphatase 85, total protein 6.2, albumin 2.8, globulin 3.4 and albumin-globulin ratio 0.8. IMPRESSION AND PLAN: Unresectable lung cancer, requiring radiation and chemotherapy, chronic obstructive lung disease, history of paroxysmal atrial fibrillation, metastatic lung cancer. We will add Mucomyst nebulizer treatments. Continue inhaled bronchodilators and gastric prophylaxis. Currently on the anticoagulation therapy. Continue antibiotic therapy and continue steroids. This patient was seen and examined with Dr. Yi. Discussed assessment and plan as described above. Thank you for this consult and we will follow with you. Juan Carlos Paul APN Aura Yi MD
--- NOTE | 2018-04-29 12:48 | PN ---
DATE: 04/29/2018 SUBJECTIVE: The patient is in bed in no acute distress, nontoxic. PHYSICAL EXAMINATION: VITAL SIGNS: Temperature is 98, blood pressure is 110/60, respiratory rate 22, heart rate of 76. HEENT: Unremarkable. NECK: Supple. LUNGS: Decreased breath sounds. HEART: Normal, S1 and S2. ABDOMEN: Soft, nontender. LABORATORY DATA: Examination reveals white count of 12,300, hemoglobin of 9, platelets of 197. Chemistry reveals BUN of 17, creatinine of 0.6, and procalcitonin is less than 0.05. Urinalysis is noted. Serology is negative. Blood cultures are negative. Nares, MRSA screen is negative. Urine for Legionella antigen is pending. CURRENT MEDICATIONS: Include meropenem and vancomycin. ASSESSMENT AND PLAN: A 77-year-old male seen earlier today in 361, bed 2, with stage IV small cell lung cancer status post chemotherapy radiation, chronic obstructive lung disease, atrial fibrillation with sepsis with multifocal pneumonia with healthcare-associated pneumonia with negative blood cultures and negative methicillin-resistant Staphylococcus aureus screen. We will discontinue the vancomycin and complete four to seven days of meropenem and doxycycline, today is day number day #3 of four to seven days of meropenem and doxycycline. We will discontinue vancomycin intravenous. Chon Guerra MD
--- NOTE | 2018-04-29 20:11 | PN ---
DATE: 04/29/2018 The patient is in room 361, bed 2. SUBJECTIVE: The patient was admitted with [id number], shortness of breath and cough. The patient has known case of small cell cancer stage IV, treated with radiation chemotherapy, history of COPD, admitted with failure to thrive. The patient still has cough. Denies chest pain. The patient in the past had atrial fibrillation. The patient now had metastatic disease with small cell CA, lytic lesion T4 with liver metastasis, extensive mediastinal hilar lymphadenopathy. The patient also found to have multifocal pneumonia. PLAN: So, the patient is continuing antibiotic therapy as per ID and along with Eliquis 5 b.i.d.; Cardizem CD 120 daily; Zaroxolyn 2.5 mg Monday, Monday, Monday; prednisone 10 mg daily; sotalol 80 b.i.d. We will continue to follow closely with you. Aura Macario MD
[2018-04-29] MEDS: Acetylcysteine 20% Inhal Soln (4ml) IH SCH (20:23)
--- NOTE | 2018-04-29 20:48 | CP.PCM.PN ---
<Lamont Bullard - Last Filed: 04/29/18 20:42> Subjective - Date & Time of Evaluation Date of Evaluation: 04/28/18 Time of Evaluation: 20:00 - Subjective Subjective: No acute issues today. Not wearing oxygen regularly ROS: 12 ROS otherwise negative Pain: denies Objective - Vital Signs/Intake and Output Vital Signs (last 24 hours): Temp Pulse Resp BP Pulse Ox 98.0 F 79 19 117/71 95 04/29/18 16:22 04/29/18 17:41 04/29/18 16:22 04/29/18 17:41 04/29/18 16:22 Intake and Output: 04/29/18 04/30/18 18:59 06:59 Intake Total 530 Balance 530 - Medications Medications: Current Medications Acetylcysteine (Acetylcysteine 20%) 4 ml IH BIDRESP [facility] Last Admin: 04/29/18 20:23 Dose: 4 ml Apixaban (Eliquis) 5 mg PO BID [facility]; Protocol Last Admin: 04/29/18 17:41 Dose: 5 mg Benzonatate (Tessalon Perles) 100 mg PO TID PRN PRN Reason: Cough Last Admin: 04/28/18 10:55 Dose: 100 mg Budesonide (Pulmicort Respules) 0.5 mg IH [id number] [facility] Last Admin: 04/29/18 20:22 Dose: 0.5 mg Diltiazem HCl (Cardizem Cd) 120 mg PO DAILY [facility] Last Admin: 04/29/18 09:19 Dose: 120 mg Doxycycline Hyclate (Doryx) 100 mg PO Q12 [facility]; Protocol Last Admin: 04/29/18 09:19 Dose: 100 mg Famotidine (Pepcid) 20 mg PO 1000,2200 [facility] Last Admin: 04/29/18 09:20 Dose: 20 mg Guaifenesin/Dextromethorphan (Robitussin Dm) 5 ml PO Q4H PRN PRN Reason: Cough Last Admin: 04/29/18 01:28 Dose: 5 ml Sodium Chloride (Sodium Chloride 0.9%) 1,000 mls @ 40 mls/hr IV .Q24H [facility] Last Admin: 04/29/18 05:19 Dose: 40 mls/hr Meropenem (Merrem Iv 1 Gm Premix) 1 gm in 50 mls @ 100 mls/hr IVPB Q8 [facility]; Protocol Last Admin: 04/29/18 14:29 Dose: 100 mls/hr Levalbuterol HCl (Xopenex) 0.63 mg IH [id number] PRN PRN Reason: Shortness of Breath Last Admin: 04/27/18 19:48 Dose: 0.63 mg Levalbuterol HCl (Xopenex) 0.63 mg IH TIDRESP [facility] Last Admin: 04/29/18 20:22 Dose: 0.63 mg Metolazone (Zaroxolyn) 2.5 mg PO MWF [facility] Last Admin: 04/27/18 10:25 Dose: 2.5 mg Melatonin [Melatonin (] 10 Mg (Home Med)) 10 mg PO HS [facility] Last Admin: 04/28/18 21:53 Dose: Not Given Prednisone (Prednisone Tab) 10 mg PO 0800 [facility] Last Admin: 04/29/18 09:25 Dose: 10 mg Sotalol HCl (Betapace) 80 mg PO BID [facility] Last Admin: 04/29/18 17:41 Dose: 80 mg - Labs Labs: 04/29/18 05:30 04/29/18 05:30 - Constitutional Appears: Non-toxic - Respiratory Exam Respiratory Exam: Clear to Ausculation Bilateral, NORMAL BREATHING PATTERN - Cardiovascular Exam Cardiovascular Exam: REGULAR RHYTHM, +S1, +S2. absent: Murmur - GI/Abdominal Exam GI & Abdominal Exam: Soft, Normal Bowel Sounds. absent: Tenderness - Extremities Exam Extremities Exam: Full ROM, Normal Capillary Refill, Normal Inspection. absent: Joint Swelling, Pedal Edema Assessment and Plan - Assessment and Plan (Free Text) Assessment: Mr. Alvarenga is a 77 y/o man with pmhx significant for afib, COPD; extensive stage SCLC with liver and lytic bone lesions being treated with cis/etop who is admitted with failure to thrive; possible AMS and presumably mutlifocal HCAP. Co ntinue with abx per ID. Will need PT consultation and likely rehab stay; Chemotherapy on hold till completion of abx course and recovery. Lamont Bullard MD Oncology <Anu Bullard P - Last Filed: 05/18/18 23:10> Objective - Vital Signs/Intake and Output Vital Signs (last 24 hours): Temp Pulse Resp BP Pulse Ox 97.5 F L 65 21 99/50 L 100 05/18/18 14:00 05/18/18 21:25 05/16/18 07:03 05/18/18 21:25 05/18/18 14:00 Intake and Output: 05/18/18 05/19/18 18:59 06:59 Intake Total 2824 Balance 2824 - Medications Medications: Current Medications Acetaminophen (Tylenol 650 Mg Supp) 650 mg RC Q6H PRN PRN Reason: Fever >100.4 F Last Admin: 05/10/18 20:55 Dose: 650 mg Acetaminophen (Tylenol 650mg/20.3ml Solution Ud) 650 mg NG Q6H PRN PRN Reason: FEVER > 100.4 Last Admin: 05/14/18 09:29 Dose: 650 mg Aspirin (Aspirin Chewable) 81 mg PO DAILY [facility] Last Admin: 05/18/18 10:38 Dose: 81 mg Budesonide (Pulmicort Respules) 0.5 mg IH [id number] [facility] Last Admin: 05/18/18 19:43 Dose: 0.5 mg Dextrose (Dextrose 50% Inj) 0 ml IV STAT PRN; Protocol PRN Reason: Hypoglycemia Protocol Dextrose (Dextrose 50% Inj) 0 ml IV STAT PRN; Protocol PRN Reason: Hypoglycemia Protocol Diltiazem HCl (Cardizem Cd) 120 mg PO DAILY [facility] Last Admin: 05/07/18 11:16 Dose: Not Given Hydromorphone HCl (Dilaudid) 0.5 mg IVP Q4H PRN PRN Reason: Pain, severe (8-10) Last Admin: 05/18/18 06:32 Dose: 0.5 mg Meropenem (Merrem Iv 1 Gm Premix) 1 gm in 50 mls @ 100 mls/hr IVPB Q8 [facility]; Protocol Last Admin: 05/18/18 22:22 Dose: 100 mls/hr Dexmedetomidine HCl (Precedex 400mcg/100ml) 400 mcg in 100 mls @ 3.357 mls/hr IV .Q24H [facility]; Protocol PRN Reason: Sedation Last Titration: 05/17/18 22:54 Dose: 0 mcg/kg/hr, 0 mls/hr Dextrose (Dextrose 5% In Water 1000 Ml) 1,000 mls @ 0 mls/hr IV .Q0M PRN; Protocol PRN Reason: Hypoglycemia Protocol Fentanyl Citrate (Fentanyl Citrate/Sodium Chloride 1 Mg/100 Ml) 1,000 mcg in 100 mls @ 2 mls/hr IV .Q24H PRN; Protocol PRN Reason: TITRATE PER MD ORDER Last Admin: 05/18/18 11:26 Dose: 70 mcg/hr, 7 mls/hr Dextrose (Dextrose 5% In Water 1000 Ml) 1,000 mls @ 0 mls/hr IV .Q0M PRN; Protocol PRN Reason: Hypoglycemia Protocol Insulin Human Lispro (Humalog High) 0 units SC Q6 [facility]; Protocol Last Admin: 05/18/18 16:45 Dose: 7 unit Levalbuterol HCl (Xopenex) 0.63 mg IH [id number] PRN PRN Reason: Shortness of Breath Last Admin: 05/15/18 02:05 Dose: 0.63 mg Levalbuterol HCl (Xopenex) 0.63 mg IH TIDRESP [facility] Last Admin: 05/18/18 19:43 Dose: 0.63 mg Methylprednisolone (Solu-Medrol) 20 mg IVP Q12 [facility] Last Admin: 05/18/18 22:26 Dose: 20 mg Pantoprazole Sodium (Protonix Inj) 40 mg IVP DAILY [facility] Last Admin: 05/18/18 10:38 Dose: 40 mg Propranolol HCl (Inderal) 20 mg PO Q6H [facility] Last Admin: 05/18/18 21:25 Dose: Not Given Sotalol HCl (Betapace) 40 mg PO BID [facility] Last Admin: 05/11/18 09:16 Dose: Not Given Verapamil HCl (Calan Tab) 40 mg PO TID [facility] Last Admin: 05/11/18 09:16 Dose: Not Given Verapamil HCl (Verapamil Inj) 2.5 mg IVP Q6 PRN PRN Reason: FOR HR GREATER THAN 130 Last Admin: 05/17/18 13:34 Dose: 2.5 mg - Labs Labs: 05/18/18 05:40 05/18/18 05:40 PT 14.0 SECONDS (9.4-12.5) H 05/15/18 20:43 INR 1.26 05/15/18 20:43 APTT 30.5 Seconds (26.9-38.3) 05/15/18 20:43 Attending/Attestation - Attestation I have personally seen and examined this patient.: Yes I have fully participated in the care of the patient.: Yes I have reviewed all pertinent clinical information, including history, physical exam and plan: Yes
--- NOTE | 2018-04-29 20:51 | CP.PCM.PN ---
<Lamont Bullard - Last Filed: 04/29/18 20:51> Subjective - Date & Time of Evaluation Date of Evaluation: 04/29/18 Time of Evaluation: 18:00 - Subjective Subjective: No acute issues. Continues on IV abx ROS: 12 ROS otherwise negative Pain: denies Objective - Vital Signs/Intake and Output Vital Signs (last 24 hours): Temp Pulse Resp BP Pulse Ox 98.0 F 79 19 117/71 95 04/29/18 16:22 04/29/18 17:41 04/29/18 16:22 04/29/18 17:41 04/29/18 16:22 Intake and Output: 04/29/18 04/30/18 18:59 06:59 Intake Total 530 Balance 530 - Medications Medications: Current Medications Acetylcysteine (Acetylcysteine 20%) 4 ml IH BIDRESP [facility] Last Admin: 04/29/18 20:23 Dose: 4 ml Apixaban (Eliquis) 5 mg PO BID [facility]; Protocol Last Admin: 04/29/18 17:41 Dose: 5 mg Benzonatate (Tessalon Perles) 100 mg PO TID PRN PRN Reason: Cough Last Admin: 04/28/18 10:55 Dose: 100 mg Budesonide (Pulmicort Respules) 0.5 mg IH [id number] [facility] Last Admin: 04/29/18 20:22 Dose: 0.5 mg Diltiazem HCl (Cardizem Cd) 120 mg PO DAILY [facility] Last Admin: 04/29/18 09:19 Dose: 120 mg Doxycycline Hyclate (Doryx) 100 mg PO Q12 [facility]; Protocol Last Admin: 04/29/18 09:19 Dose: 100 mg Famotidine (Pepcid) 20 mg PO 1000,2200 [facility] Last Admin: 04/29/18 09:20 Dose: 20 mg Guaifenesin/Dextromethorphan (Robitussin Dm) 5 ml PO Q4H PRN PRN Reason: Cough Last Admin: 04/29/18 01:28 Dose: 5 ml Sodium Chloride (Sodium Chloride 0.9%) 1,000 mls @ 40 mls/hr IV .Q24H [facility] Last Admin: 04/29/18 05:19 Dose: 40 mls/hr Meropenem (Merrem Iv 1 Gm Premix) 1 gm in 50 mls @ 100 mls/hr IVPB Q8 [facility]; P rotocol Last Admin: 04/29/18 14:29 Dose: 100 mls/hr Levalbuterol HCl (Xopenex) 0.63 mg IH [id number] PRN PRN Reason: Shortness of Breath Last Admin: 04/27/18 19:48 Dose: 0.63 mg Levalbuterol HCl (Xopenex) 0.63 mg IH TIDRESP [facility] Last Admin: 04/29/18 20:22 Dose: 0.63 mg Metolazone (Zaroxolyn) 2.5 mg PO MWF [facility] Last Admin: 04/27/18 10:25 Dose: 2.5 mg Melatonin [Melatonin (] 10 Mg (Home Med)) 10 mg PO HS [facility] Last Admin: 04/28/18 21:53 Dose: Not Given Prednisone (Prednisone Tab) 10 mg PO 0800 [facility] Last Admin: 04/29/18 09:25 Dose: 10 mg Sotalol HCl (Betapace) 80 mg PO BID [facility] Last Admin: 04/29/18 17:41 Dose: 80 mg - Labs Labs: 04/29/18 05:30 04/29/18 05:30 - Constitutional Appears: Well - Cardiovascular Exam Cardiovascular Exam: REGULAR RHYTHM, +S1, +S2. absent: Murmur - GI/Abdominal Exam GI & Abdominal Exam: Soft, Normal Bowel Sounds. absent: Tenderness - Extremities Exam Extremities Exam: Full ROM, Normal Capillary Refill, Normal Inspection. absent: Joint Swelling, Pedal Edema Assessment and Plan - Assessment and Plan (Free Text) Assessment: Mr. Alvarenga is a 77 y/o man with pmhx significant for afib, COPD; extensive stage SCLC with liver and lytic bone lesions being treated with cis/etop who is admitted with failure to thrive; possible AMS and presumably mutlifocal HCAP. Continue with abx per ID. Will need PT consultation and likely rehab stay; Chemotherapy on hold till completion of abx course and recovery. Lamont Bullard MD Oncology <Anu Bullard P - Last Filed: 05/18/18 23:10> Objective - Vital Signs/Intake and Output Vital Signs (last 24 hours): Temp Pulse Resp BP Pulse Ox 97.5 F L 65 21 99/50 L 100 05/18/18 14:00 05/18/18 21:25 05/16/18 07:03 05/18/18 21:25 05/18/18 14:00 Intake and Output: 05/18/18 05/19/18 18:59 06:59 Intake Total 2824 Balance 2824 - Medications Medications: Current Medications Acetaminophen (Tylenol 650 Mg Supp) 650 mg RC Q6H PRN PRN Reason: Fever >100.4 F Last Admin: 05/10/18 20:55 Dose: 650 mg Acetaminophen (Tylenol 650mg/20.3ml Solution Ud) 650 mg NG Q6H PRN PRN Reason: FEVER > 100.4 Last Admin: 05/14/18 09:29 Dose: 650 mg Aspirin (Aspirin Chewable) 81 mg PO DAILY [facility] Last Admin: 05/18/18 10:38 Dose: 81 mg Budesonide (Pulmicort Respules) 0.5 mg IH [id number] [facility] Last Admin: 05/18/18 19:43 Dose: 0.5 mg Dextrose (Dextrose 50% Inj) 0 ml IV STAT PRN; Protocol PRN Reason: Hypoglycemia Protocol Dextrose (Dextrose 50% Inj) 0 ml IV STAT PRN; Protocol PRN Reason: Hypoglycemia Protocol Diltiazem HCl (Cardizem Cd) 120 mg PO DAILY [facility] Last Admin: 05/07/18 11:16 Dose: Not Given Hydromorphone HCl (Dilaudid) 0.5 mg IVP Q4H PRN PRN Reason: Pain, severe (8-10) Last Admin: 05/18/18 06:32 Dose: 0.5 mg Meropenem (Merrem Iv 1 Gm Premix) 1 gm in 50 mls @ 100 mls/hr IVPB Q8 [facility]; Protocol Last Admin: 05/18/18 22:22 Dose: 100 mls/hr Dexmedetomidine HCl (Precedex 400mcg/100ml) 400 mcg in 100 mls @ 3.357 mls/hr IV .Q24H PRN; Protocol PRN Reason: Sedation Last Titration: 05/17/18 22:54 Dose: 0 mcg/kg/hr, 0 mls/hr Dextrose (Dextrose 5% In Water 1000 Ml) 1,000 mls @ 0 mls/hr IV .Q0M PRN; Protocol PRN Reason: Hypoglycemia Protocol Fentanyl Citrate (Fentanyl Citrate/Sodium Chloride 1 Mg/100 Ml) 1,000 mcg in 100 mls @ 2 mls/hr IV .Q24H PRN; Protocol PRN Reason: TITRATE PER MD ORDER Last Admin: 05/18/18 11:26 Dose: 70 mcg/hr, 7 mls/hr Dextrose (Dextrose 5% In Water 1000 Ml) 1,000 mls @ 0 mls/hr IV .Q0M PRN; Protocol PRN Reason: Hypoglycemia Protocol Insulin Human Lispro (Humalog High) 0 units SC Q6 [facility]; Protocol Last Admin: 05/18/18 16:45 Dose: 7 unit Levalbuterol HCl (Xopenex) 0.63 mg IH [id number] PRN PRN Reason: Shortness of Breath Last Admin: 05/15/18 02:05 Dose: 0.63 mg Levalbuterol HCl (Xopenex) 0.63 mg IH TIDRESP [facility] Last Admin: 05/18/18 19:43 Dose: 0.63 mg Methylprednisolone (Solu-Medrol) 20 mg IVP Q12 [facility] Last Admin: 05/18/18 22:26 Dose: 20 mg Pantoprazole Sodium (Protonix Inj) 40 mg IVP DAILY [facility] Last Admin: 05/18/18 10:38 Dose: 40 mg Propranolol HCl (Inderal) 20 mg PO Q6H [facility] Last Admin: 05/18/18 21:25 Dose: Not Given Sotalol HCl (Betapace) 40 mg PO BID [facility] Last Admin: 05/11/18 09:16 Dose: Not Given Verapamil HCl (Calan Tab) 40 mg PO TID [facility] Last Admin: 05/11/18 09:16 Dose: Not Given Verapamil HCl (Verapamil Inj) 2.5 mg IVP Q6 PRN PRN Reason: FOR HR GREATER THAN 130 Last Admin: 05/17/18 13:34 Dose: 2.5 mg - Labs Labs: 05/18/18 05:40 05/18/18 05:40 PT 14.0 SECONDS (9.4-12.5) H 05/15/18 20:43 INR 1.26 05/15/18 20:43 APTT 30.5 Seconds (26.9-38.3) 05/15/18 20:43 Attending/Attestation - Attestation I have personally seen and examined this patient.: Yes I have fully participated in the care of the patient.: Yes I have reviewed all pertinent clinical information, including history, physical exam and plan: Yes
[2018-04-29] MEDS: MELATONIN 10 MG PO SCH (22:08)
[2018-04-30] MEDS: Meropenem IV 1 gm in NS 1 GM/50 ML BAG IVPB SCH ×3 (05:47→21:28)
--- NOTE | 2018-04-30 07:55 | CP.PCM.PN ---
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 Orozco Objective - Vital Signs/Intake and Output Vital Signs (last 24 hours): Temp Pulse Resp BP Pulse Ox 98.8 F 75 20 128/82 98 04/30/18 00:18 04/30/18 00:18 04/30/18 00:18 04/30/18 00:18 04/30/18 00:18 Intake and Output: 04/30/18 04/30/18 06:59 18:59 Intake Total 240 Output Total 900 Balance -660 - Medications Medications: Current Medications Acetylcysteine (Acetylcysteine 20%) 4 ml IH BIDRESP [facility] Last Admin: 04/29/18 20:23 Dose: 4 ml Apixaban (Eliquis) 5 mg PO BID [facility]; Protocol Last Admin: 04/29/18 17:41 Dose: 5 mg Benzonatate (Tessalon Perles) 100 mg PO TID PRN PRN Reason: Cough Last Admin: 04/29/18 21:44 Dose: 100 mg Budesonide (Pulmicort Respules) 0.5 mg IH [id number] [facility] Last Admin: 04/29/18 20:22 Dose: 0.5 mg Diltiazem HCl (Cardizem Cd) 120 mg PO DAILY [facility] Last Admin: 04/29/18 09:19 Dose: 120 mg Doxycycline Hyclate (Doryx) 100 mg PO Q12 [facility]; Protocol Last Admin: 04/29/18 21:41 Dose: 100 mg Famotidine (Pepcid) 20 mg PO 1000,2200 [facility] Last Admin: 04/29/18 21:40 Dose: 20 mg Guaifenesin/Dextromethorphan (Robitussin Dm) 5 ml PO Q4H PRN PRN Reason: Cough Last Admin: 04/29/18 21:44 Dose: 5 ml Sodium Chloride (Sodium Chloride 0.9%) 1,000 mls @ 40 mls/hr IV .Q24H [facility] Last Admin: 04/29/18 05:19 Dose: 40 mls/hr Meropenem (Merrem Iv 1 Gm Premix) 1 gm in 50 mls @ 100 mls/hr IVPB Q8 [facility]; Protocol Last Admin: 04/30/18 05:47 Dose: 100 mls/hr Levalbuterol HCl (Xopenex) 0.63 mg IH [id number] PRN PRN Reason: Shortness of Breath Last Admin: 04/27/18 19:48 Dose: 0.63 mg Levalbuterol HCl (Xopenex) 0.63 mg IH TIDRESP [facility] Last Admin: 04/29/18 20:22 Dose: 0.63 mg Metolazone (Zaroxolyn) 2.5 mg PO MWF [facility] Last Admin: 04/27/18 10:25 Dose: 2.5 mg Melatonin [Melatonin (] 10 Mg (Home Med)) 10 mg PO HS [facility] Last Admin: 04/29/18 22:08 Dose: Not Given Prednisone (Prednisone Tab) 10 mg PO 0800 [facility] Last Admin: 04/29/18 09:25 Dose: 10 mg Sotalol HCl (Betapace) 80 mg PO BID [facility] Last Admin: 04/29/18 17:41 Dose: 80 mg - Labs Labs: 04/29/18 05:30 04/29/18 05:30 - Constitutional Appears: Non-toxic, No Acute Distress - Head Exam Head Exam: NORMAL INSPECTION, NORMOCEPHALIC - Eye Exam Eye Exam: Normal appearance Pupil Exam: NORMAL ACCOMODATION - ENT Exam ENT Exam: Mucous Membranes Moist - Respiratory Exam Respiratory Exam: Decreased Breath Sounds, NORMAL BREATHING PATTERN - Cardiovascular Exam Cardiovascular Exam: +S1, +S2 Additional comments: right chest port - GI/Abdominal Exam GI & Abdominal Exam: Soft, Normal Bowel Sounds - Extremities Exam Extremities Exam: Full ROM, Normal Capillary Refill - Neurological Exam Neurological Exam: Alert, Awake, Oriented x3 - Psychiatric Exam Psychiatric exam: Normal Affect, Normal Mood - Skin Skin Exam: Dry, Normal Color, Warm Assessment and Plan - Assessment and Plan (Free Text) Assessment: A 77 year old male who came in to the ER due to loss of appetite,weight loss, admitted for failure to thrive. 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 denies chest pain or shortness of breath. Cardiac status stable. CT of chest showed multifocal pneumonia. On IV antibiotics. Mental status improved. Awake and alert . Cardiac status stable. To resume chemotherapy after completion of antibiotics. Plan: Cardiac status stable Awake, responsive, feels okay, No distress Mental status improved Heart rate controlled Blood pressure controlled On Eliquis 5 mg BID,Cardizem 120 mg daily,Zaroxylyn 2.5 mg MWF, Prednisone 10 mg daily, Sotalol 80 mg BID Continue current treatment Continue current medications Continue IV antibiotics as per ID Pulmonary on consult Nutritional support As per Oncology, to resume chemotherapy after completion of antibiotics. Will follow up Plan and treatment discussed with Dr. Orozco
[2018-04-30] MEDS: Acetylcysteine 20% Inhal Soln (4ml) IH SCH ×2 (07:58→19:54)
[2018-04-30] MEDS: Levalbuterol 0.63 MG/3 ML Inhal Soln UD IH SCH ×3 (07:59→19:54)
[2018-04-30] MEDS: Budesonide 0.5 mg/2 ml Inhal Susp UD IH SCH ×2 (08:00→19:54)
--- NOTE | 2018-04-30 08:34 | PN ---
DATE: 04/28/2018 LOCATION: The patient is in room 361, bed 2. The patient was ex-smoker, hypertension, history of recently diagnosed stage IV lung cancer with extensive metastasis to lung with lytic lesion to T7 as well as mediastinal lymphadenopathy and liver metastasis admitted with failure to thrive and cachexia, and the patient also has history of paroxysmal atrial fibrillation. The patient's EKG on 12/16/2017, showed AFib, but later on 12/18, the patient converted to normal sinus rhythm. The patient has history of going back and forth into atrial fibrillation. Briefly, patient went into atrial fibrillation, but now is maintaining sinus rhythm, patient is getting sotalol and Cardizem. The patient's hemoglobin is 9.5, hematocrit 30.3, WBC 12.9, and platelet 239. Sodium 133, potassium 3.5, BUN 15, and creatinine 0.6. Plan is to give the patient nutritional support. The patient is on sotalol 80 mg b.i.d. and diltiazem CD 120 mg p.o. daily. The patient also on Eliquis 5 mg b.i.d. for paroxysmal atrial fibrillation. The patient is on meropenem 1 g IV every 8 hours, prednisone 10 mg p.o. daily. The patient is also on metolazone 2.5 mg p.o. Monday, Monday, Monday. We will give potassium p.o. to the patient and we will repeat labs in the morning and we will follow with you. Aura Macario MD
[2018-04-30] MEDS: metOLazone 2.5 MG TAB PO SCH (09:25)
[2018-04-30] MEDS: diltiaZEM 120 mg/24 Hours CD Cap PO SCH (09:26)
--- NOTE | 2018-04-30 14:13 | PN ---
DATE: 04/30/2018 PULMONARY PROGRESS NOTE REFERRING PHYSICIAN: Dr. Erasmo Briggs. SUBJECTIVE: The patient is lying in bed, head of bed elevated. No acute distress. No overnight events reported. No headache, rhinitis, cough, shortness of breath, chest pain, abdominal pain, nausea, vomiting, diarrhea, leg pain, or leg swelling reported. OBJECTIVE: GENERAL: No acute distress. VITAL SIGNS: Blood pressure 128/82, pulse 75, temperature 98.8, and oxygen saturation 98% on nasal cannula. HEENT: Moist mucous membranes. NECK: Supple. No JVD. LUNGS: Scattered rhonchi bilaterally. Wheezing audible bilaterally. CARDIOVASCULAR: S1 and S2 audible. ABDOMEN: Soft and nontender. No distension. No organomegaly. EXTREMITIES: No bilateral lower extremity edema. NEUROLOGICAL: Awake, alert, and verbal. Follows commands. MEDICATIONS: Reviewed. Mucomyst 4 mL inhalation twice a day, Eliquis 5 mg twice a day, Tessalon Perles 100 mg three times a day p.r.n., Pulmicort 0.5 mg every 12 hours, Cardizem 120 mg daily, doxycycline 100 mg every 12 hours, Pepcid 20 mg twice a day, Robitussin 5 mL every 4 hours p.r.n., Xopenex 0.63 mg inhalation every 6 hours p.r.n., Xopenex 0.63 mg inhalation three times a day, meropenem 1 g every 8 hours, metolazone 2.5 mg Monday, Monday and Monday, melatonin 10 mg at bedtime, prednisone 10 mg daily, sodium chloride 0.9% 1000 mL at 40 mL per hour, and sotalol 80 mg twice a day. LABORATORY DATA: Reviewed. No new labs since yesterday. IMPRESSION AND PLAN: Unresectable lung cancer, requiring radiation and chemotherapy; chronic obstructive lung disease; history of paroxysmal atrial fibrillation; and metastatic lung cancer. Continue inhaled bronchodilators and gastric prophylaxis. Continue antibiotic therapy. Continue steroids. The patient is currently on anticoagulation therapy. We will order physical therapy for evaluation for out of bed. This patient was seen and examined with Dr. Yi. Discussed assessment and plan as described above. Thank you for this consult. We will follow with you. Juan Carlos Paul APN Aura Yi MD [facility] # [id number]
--- NOTE | 2018-04-30 16:11 | PN ---
DATE: 04/30/2018 NEUROLOGY FOLLOWUP CHIEF COMPLAINT: Followup for change in altered mental status. SUBJECTIVE: The patient is in no acute distress. No acute events overnight. MRI of the brain showed no acute intracranial abnormalities, more alert, and blood pressure is stable. PAST MEDICAL HISTORY: History of AFib; small cell lung cancer, stage IV, on chemo; COPD; ex-smoker; small-cell lytic lesion in T4 with liver metastasis; extensive mediastinal hilar lymphadenopathy. REVIEW OF SYSTEMS: Fourteen-point review of systems is as per the HPI . MEDICATIONS: Reviewed by nurse's reconciliation sheet. FAMILY HISTORY: Noncontributory. PHYSICAL EXAMINATION GENERAL: The patient is lethargic, in no acute distress, cachectic looking. VITAL SIGNS: Temperature of 98.1, pulse rate of 80, blood pressure 122/77, respiratory rate 20, oxygen saturation 98% via 2 L nasal cannula. HEENT: Atraumatic, normocephalic. PERRLA. Extraocular muscles intact. NECK: Supple. No JVD. No adenopathy noted. Both temples are sunken. Tongue is dry. HEART: S1 and S2. Normal rate and rhythm. No murmurs, rubs, or gallops. ABDOMEN: Soft, nontender, nondistended. Bowel sounds present. EXTREMITIES: No clubbing, no cyanosis. Peripheral pulses are 2+ felt bilaterally. NEUROLOGIC: The patient is drowsy, follows commands, intermittent confusion. Speech is hypophonic. No aphasia noted. Cranial nerves II through XII are intact. Poor attention span. Slow thought process. Motor exam; cachectic looking, has in both upper and lower extremity muscles from deconditioned state, moves all extremities equally, slightly increased tone throughout. Sensory: Withdraws to localized noxious stimulus. DTRs are 2+ and 1 at both knees and ankles. Coordination and gait deferred for now. LABORATORY DATA: Sodium is 139, potassium 3.9, chloride 101, carbon dioxide of 28, BUN of 70, creatinine 0.6, random glucose of 119. IMPRESSION AND PLAN: Change in mental status secondary to transient confusional state from underlying malignancy and cachexia of malignancy versus underlying multifocal pneumonia on CAT scan of the chest, on antibiotics. At this time, we recommend to continue with his antibiotics for underlying multifocal pneumonia. His MRI of the brain showed no acute intracranial abnormalities, no evidence of any metastatic disease centrally. Advise fluids and nutrition and delirium precautions . Thank you for this consult. Dajuan Alvarenga MD
--- NOTE | 2018-04-30 17:31 | CP.PCM.PN ---
Subjective - Date & Time of Evaluation Date of Evaluation: 04/30/18 Time of Evaluation: 09:50 - Subjective Subjective: No fevers, not in distress, still feels somewhat weak, cough is improving. Objective - Vital Signs/Intake and Output Vital Signs (last 24 hours): Temp Pulse Resp BP Pulse Ox 98.8 F 75 20 128/82 98 04/30/18 00:18 04/30/18 00:18 04/30/18 00:18 04/30/18 00:18 04/30/18 00:18 Intake and Output: 04/30/18 04/30/18 06:59 18:59 Intake Total 240 Output Total 900 Balance -660 - Medications Medications: Current Medications Acetylcysteine (Acetylcysteine 20%) 4 ml IH BIDRESP [facility] Last Admin: 04/29/18 20:23 Dose: 4 ml Apixaban (Eliquis) 5 mg PO BID [facility]; Protocol Last Admin: 04/29/18 17:41 Dose: 5 mg Benzonatate (Tessalon Perles) 100 mg PO TID PRN PRN Reason: Cough Last Admin: 04/29/18 21:44 Dose: 100 mg Budesonide (Pulmicort Respules) 0.5 mg IH [id number] [facility] Last Admin: 04/29/18 20:22 Dose: 0.5 mg Diltiazem HCl (Cardizem Cd) 120 mg PO DAILY [facility] Last Admin: 04/29/18 09:19 Dose: 120 mg Doxycycline Hyclate (Doryx) 100 mg PO Q12 [facility]; Protocol Last Admin: 04/29/18 21:41 Dose: 100 mg Famotidine (Pepcid) 20 mg PO 1000,2200 [facility] Last Admin: 04/29/18 21:40 Dose: 20 mg Guaifenesin/Dextromethorphan (Robitussin Dm) 5 ml PO Q4H PRN PRN Reason: Cough Last Admin: 04/29/18 21:44 Dose: 5 ml Sodium Chloride (Sodium Chloride 0.9%) 1,000 mls @ 40 mls/hr IV .Q24H [facility] Last Admin: 04/29/18 05:19 Dose: 40 mls/hr Meropenem (Merrem Iv 1 Gm Premix) 1 gm in 50 mls @ 100 mls/hr IVPB Q8 [facility]; Protocol Last Admin: 04/30/18 05:47 Dose: 100 mls/hr Levalbuterol HCl (Xopenex) 0.63 mg IH [id number] PRN PRN Reason: Shortness of Breath Last Admin: 04/27/18 19:48 Dose: 0.63 mg Levalbuterol HCl (Xopenex) 0.63 mg IH TIDRESP [facility] Last Admin: 04/29/18 20:22 Dose: 0.63 mg Metolazone (Zaroxolyn) 2.5 mg PO MWF [facility] Last Admin: 04/27/18 10:25 Dose: 2.5 mg Melatonin [Melatonin (] 10 Mg (Home Med)) 10 mg PO HS [facility] Last Admin: 04/29/18 22:08 Dose: Not Given Prednisone (Prednisone Tab) 10 mg PO 0800 [facility] Last Admin: 04/29/18 09:25 Dose: 10 mg Sotalol HCl (Betapace) 80 mg PO BID [facility] Last Admin: 04/29/18 17:41 Dose: 80 mg - Labs Labs: 04/29/18 05:30 04/29/18 05:30 - Constitutional Appears: No Acute Distress, Chronically Ill - Head Exam Head Exam: NORMAL INSPECTION - ENT Exam ENT Exam: Mucous Membranes Moist - Neck Exam Neck Exam: absent: Meningismus - Respiratory Exam Respiratory Exam: Decreased Breath Sounds - Cardiovascular Exam Cardiovascular Exam: +S1, +S2 - GI/Abdominal Exam GI & Abdominal Exam: Soft. absent: Tenderness Assessment and Plan - Assessment and Plan (Free Text) Plan: Assessment SIRS, consider sepsis due to multifocal HCAP in this patient with stage 4 lung cancer, with confusion consider toxic-metabolic encephalopathy small cell lung cancer stage 4 on radiation and chemotherapy COPD atrial fibrillation gastritis Plan continue Merrem and Doxycycline day 4 of 4-7 days cultures and nasal MRSA screen are negative; reviewed CT chest showing multifocal infiltrates reviewed brain MRI - did not show mass lesions or CVA will continue to monitor clinically discussed with Dr. Briggs previously overall prognosis is poor
--- NOTE | 2018-04-30 18:23 | PN ---
DATE: 04/30/2018 REASON FOR CONSULTATION: Cardiac evaluation; history of atrial fibrillation; history of small-cell lung cancer stage IV, on radiation and chemotherapy; chronic obstructive pulmonary disease, admitted with failure to thrive. This note is addition to dictated by nurse practitioner, Melany Glover. PHYSICAL EXAMINATION: CVS: The patient is stable. VITAL SIGNS: The patient in normal sinus, heart rate is stable at 80, blood pressure 130/77. SUMMARY: In summary, this is a 77-year-old male with a history of atrial fibrillation, on anticoagulation, admitted with stage IV lung cancer status post chemo and radiation. RECOMMENDATIONS: Continue Eliquis. Continue Cardizem. CVS status is stable. Monitor electrolytes. We will discontinue telemetry. We will follow with you. Thank you Dr. Erasmo Briggs for providing us the opportunity in taking care of the patient, Salvador Alvarenga. Aura Orozco MD
[2018-04-30] MEDS: MELATONIN 10 MG PO SCH (21:28)
[2018-05-01] MEDS: Meropenem IV 1 gm in NS 1 GM/50 ML BAG IVPB SCH ×3 (05:05→21:26)
[2018-05-01] MEDS: Budesonide 0.5 mg/2 ml Inhal Susp UD IH SCH ×2 (08:10→19:57)
[2018-05-01] MEDS: Acetylcysteine 20% Inhal Soln (4ml) IH SCH ×2 (08:10→19:57)
[2018-05-01] MEDS: Levalbuterol 0.63 MG/3 ML Inhal Soln UD IH SCH ×3 (08:10→19:57)
--- NOTE | 2018-05-01 08:23 | CP.PCM.PN ---
Subjective - Date & Time of Evaluation Date of Evaluation: 05/01/18 Time of Evaluation: 06:50 - Subjective Subjective: Lying in bed, awake, no distress Reason for consultation and follow up:Cardiac evaluation and follow up of history of atrial fibrillation, history of small cell lung cancer stage 4 on radiation and chemotherapy, COPD, admitted for failure to thrive Seen and examined by me and Dr. Orozco Objective - Vital Signs/Intake and Output Vital Signs (last 24 hours): Temp Pulse Resp BP Pulse Ox 98 F 70 20 98/66 L 96 05/01/18 08:09 05/01/18 08:09 05/01/18 08:09 05/01/18 08:09 05/01/18 08:09 Intake and Output: 05/01/18 05/01/18 06:59 18:59 Intake Total 1800 Output Total 3600 Balance -1800 - Medications Medications: Current Medications Acetylcysteine (Acetylcysteine 20%) 4 ml IH BIDRESP [facility] Last Admin: 05/01/18 08:10 Dose: 4 ml Apixaban (Eliquis) 5 mg PO BID [facility]; Protocol Last Admin: 04/30/18 17:07 Dose: 5 mg Benzonatate (Tessalon Perles) 100 mg PO TID PRN PRN Reason: Cough Last Admin: 04/29/18 21:44 Dose: 100 mg Budesonide (Pulmicort Respules) 0.5 mg IH [id number] [facility] Last Admin: 05/01/18 08:10 Dose: 0.5 mg Diltiazem HCl (Cardizem Cd) 120 mg PO DAILY [facility] Last Admin: 04/30/18 09:26 Dose: 120 mg Doxycycline Hyclate (Doryx) 100 mg PO Q12 [facility]; Protocol Last Admin: 04/30/18 21:27 Dose: 100 mg Famotidine (Pepcid) 20 mg PO 1000,2200 [facility] Last Admin: 04/30/18 21:29 Dose: 20 mg Guaifenesin/Dextromethorphan (Robitussin Dm) 5 ml PO Q4H PRN PRN Reason: Cough Last Admin: 04/29/18 21:44 Dose: 5 ml Sodium Chloride (Sodium Chloride 0.9%) 1,000 mls @ 40 mls/hr IV .Q24H [facility] Last Admin: 04/29/18 05:19 Dose: 40 mls/hr Meropenem (Merrem Iv 1 Gm Premix) 1 gm in 50 mls @ 100 mls/hr IVPB Q8 [facility]; Protocol Last Admin: 05/01/18 05:05 Dose: 100 mls/hr Levalbuterol HCl (Xopenex) 0.63 mg IH [id number] PRN PRN Reason: Shortness of Breath Last Admin: 04/27/18 19:48 Dose: 0.63 mg Levalbuterol HCl (Xopenex) 0.63 mg IH TIDRESP [facility] Last Admin: 05/01/18 08:10 Dose: 0.63 mg Metolazone (Zaroxolyn) 2.5 mg PO MWF [facility] Last Admin: 04/30/18 09:25 Dose: 2.5 mg Melatonin [Melatonin (] 10 Mg (Home Med)) 10 mg PO HS [facility] Last Admin: 04/30/18 21:28 Dose: Not Given Prednisone (Prednisone Tab) 10 mg PO 0800 [facility] Last Admin: 04/30/18 08:03 Dose: 10 mg Sotalol HCl (Betapace) 80 mg PO BID [facility] Last Admin: 04/30/18 17:07 Dose: 80 mg - Labs Labs: 04/29/18 05:30 04/29/18 05:30 - Constitutional Appears: Non-toxic, No Acute Distress - Head Exam Head Exam: NORMAL INSPECTION, NORMOCEPHALIC - Eye Exam Eye Exam: Normal appearance Pupil Exam: NORMAL ACCOMODATION - ENT Exam ENT Exam: Mucous Membranes Moist - Respiratory Exam Respiratory Exam: Clear to Ausculation Bilateral, NORMAL BREATHING PATTERN - Cardiovascular Exam Cardiovascular Exam: +S1, +S2 Additional comments: right chest port - GI/Abdominal Exam GI & Abdominal Exam: Soft, Normal Bowel Sounds - Extremities Exam Extremities Exam: Full ROM, Normal Capillary Refill - Neurological Exam Neurological Exam: Alert, Awake, Oriented x3 - Psychiatric Exam Psychiatric exam: Normal Affect, Normal Mood - Skin Skin Exam: Dry, Normal Color, Warm Assessment and Plan - Assessment and Plan (Free Text) Assessment: A 77 year old male who came in to the ER due to loss of appetite,weight loss, admitted for failure to thrive. 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 denies chest pain or shortness of breath. Cardiac status stable. CT of chest showed multifocal pneumonia. On IV antibiotics. Mental status improved. Awake and alert . Cardiac status stable. As per Oncology, to resume chemotherapy after completion of antibiotics. Plan: No distress Cardiac status stable Heart rate controlled Blood pressure controlled On Eliquis 5 mg BID,Cardizem 120 mg daily,Zaroxylyn 2.5 mg MWF, Prednisone 10 mg daily, Sotalol 80 mg BID Continue current treatment Continue current medications Continue IV antibiotics as per ID Pulmonary on consult Nutritional support Discharge planning Will follow up Plan and treatment discussed with Dr. Orozco
[2018-05-01] MEDS: diltiaZEM 120 mg/24 Hours CD Cap PO SCH (09:25)
--- NOTE | 2018-05-01 13:10 | PN ---
DATE: 05/01/2018 PULMONARY PROGRESS NOTE REFERRING PHYSICIAN: Erasmo Briggs MD SUBJECTIVE: The patient is lying in bed. No acute distress. No overnight events reported. The patient continues to report having the feeling of phlegm stuck in his throat, unable to clear his throat. No headache, rhinitis, shortness of breath, chest pain, abdominal pain, nausea, vomiting, diarrhea, leg pain, or leg swelling reported. The patient does report occasional cough. OBJECTIVE: GENERAL: No acute distress. VITAL SIGNS: Blood pressure 98/66, pulse 70, temperature 98, and oxygen saturation 96%. HEENT: Moist mucous membranes. NECK: Supple. No JVD. LUNGS: Scattered rhonchi bilaterally. CARDIOVASCULAR: S1 and S2, audible. ABDOMEN: Soft and nontender. No distension. No organomegaly. EXTREMITIES: No bilateral lower extremity edema. NEUROLOGIC: Awake, alert, and verbal. Follows commands. MEDICATIONS: Reviewed. Mucomyst 4 mL inhalation twice a day, Eliquis 5 mg twice a day, Tessalon Perles 100 mg three times a day p.r.n., Pulmicort 0.5 mg every 12 hours, Cardizem 120 mg daily, doxycycline 100 mg every 12 hours, Pepcid 20 mg twice a day, Robitussin DM 5 mL every 4 hours p.r.n., Xopenex 0.63 mg inhalation every 6 hours p.r.n., Xopenex 0.63 mg inhalation three times a day, meropenem 1 g every 8 hours, metolazone 2.5 mg p.o. Monday, Monday and Monday, melatonin 10 mg at bedtime, prednisone 10 mg daily, sodium chloride 1000 mL at 40 mL per hour, and sotalol 80 mg twice a day. LABORATORY DATA: Reviewed. No new labs since yesterday. IMPRESSION AND PLAN: Unresectable lung cancer, requiring radiation and chemotherapy; chronic obstructive lung disease; history of paroxysmal atrial fibrillation; and metastatic lung cancer. Continue inhaled bronchodilators. Continue antibiotic therapy. Continue steroids. Currently on anticoagulation therapy. We will discontinue Pepcid and start Protonix 40 mg at bedtime due to complaints of discomfort. We will add nystatin swish and swallow. We believe this patient would benefit from physical therapy. This patient was seen and examined with Dr. Yi. Discussed assessment and plan as described above. Thank you for this consult. We will follow with you. Juan Carlos Paul APN Aura Yi MD
[2018-05-01] MEDS: Nystatin 100,000 Units/ml Oral Susp 5 ml UD PO SCH ×3 (14:40→21:27)
--- NOTE | 2018-05-01 15:49 | CP.PCM.PN ---
Subjective - Date & Time of Evaluation Date of Evaluation: 05/01/18 Time of Evaluation: 10:00 - Subjective Subjective: Not short of breath at rest, no fevers. No diarrhea. Objective - Vital Signs/Intake and Output Vital Signs (last 24 hours): Temp Pulse Resp BP Pulse Ox 98.1 F 69 20 109/75 93 L 04/30/18 08:02 04/30/18 17:07 04/30/18 08:02 04/30/18 17:07 04/30/18 08:02 Intake and Output: 04/30/18 04/30/18 06:59 18:59 Intake Total 240 Output Total 900 Balance -660 - Medications Medications: Current Medications Acetylcysteine (Acetylcysteine 20%) 4 ml IH BIDRESP [facility] Last Admin: 04/30/18 07:58 Dose: 4 ml Apixaban (Eliquis) 5 mg PO BID [facility]; Protocol Last Admin: 04/30/18 17:07 Dose: 5 mg Benzonatate (Tessalon Perles) 100 mg PO TID PRN PRN Reason: Cough Last Admin: 04/29/18 21:44 Dose: 100 mg Budesonide (Pulmicort Respules) 0.5 mg IH [id number] [facility] Last Admin: 04/30/18 08:00 Dose: 0.5 mg Diltiazem HCl (Cardizem Cd) 120 mg PO DAILY [facility] Last Admin: 04/30/18 09:26 Dose: 120 mg Doxycycline Hyclate (Doryx) 100 mg PO Q12 [facility]; Protocol Last Admin: 04/30/18 09:25 Dose: 100 mg Famotidine (Pepcid) 20 mg PO 1000,2200 [facility] Last Admin: 04/30/18 09:25 Dose: 20 mg Guaifenesin/Dextromethorphan (Robitussin Dm) 5 ml PO Q4H PRN PRN Reason: Cough Last Admin: 04/29/18 21:44 Dose: 5 ml Sodium Chloride (Sodium Chloride 0.9%) 1,000 mls @ 40 mls/hr IV .Q24H [facility] Last Admin: 04/29/18 05:19 Dose: 40 mls/hr Meropenem (Merrem Iv 1 Gm Premix) 1 gm in 50 mls @ 100 mls/hr IVPB Q8 [facility]; Protocol Last Admin: 04/30/18 14:12 Dose: 100 mls/hr Levalbuterol HCl (Xopenex) 0.63 mg IH [id number] PRN PRN Reason: Shortness of Breath Last Admin: 04/27/18 19:48 Dose: 0.63 mg Levalbuterol HCl (Xopenex) 0.63 mg IH TIDRESP [facility] Last Admin: 04/30/18 13:51 Dose: 0.63 mg Metolazone (Zaroxolyn) 2.5 mg PO MWF [facility] Last Admin: 04/30/18 09:25 Dose: 2.5 mg Melatonin [Melatonin (] 10 Mg (Home Med)) 10 mg PO HS [facility] Last Admin: 04/29/18 22:08 Dose: Not Given Prednisone (Prednisone Tab) 10 mg PO 0800 [facility] Last Admin: 04/30/18 08:03 Dose: 10 mg Sotalol HCl (Betapace) 80 mg PO BID [facility] Last Admin: 04/30/18 17:07 Dose: 80 mg - Labs Labs: 04/29/18 05:30 04/29/18 05:30 - Constitutional Appears: Non-toxic, Chronically Ill - Head Exam Head Exam: NORMAL INSPECTION - Neck Exam Neck Exam: absent: Meningismus - Respiratory Exam Respiratory Exam: Decreased Breath Sounds - Cardiovascular Exam Cardiovascular Exam: +S1, +S2 - GI/Abdominal Exam GI & Abdominal Exam: Soft. 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
--- NOTE | 2018-05-01 15:50 | PN ---
DATE: 05/01/2018 REASON FOR CONSULTATION: Cardiac evaluation for history of atrial fibrillation, paroxysmal; history of small-cell lung cancer, stage IV, status post radiation, status post chemo; COPD, admitted with failure to thrive. This note is in addition to dictated by nurse practitioner. SUBJECTIVE: The patient is lying flat on the bed. Denies any chest pain, shortness of breath, or any palpitation. Feels very weak and is scared to go to the bathroom because of a history of fall in the past. PERTINENT LABORATORY DATA: Hemoglobin 9.5, hematocrit 30. Chemistry showed sodium 134, potassium 3.9, chloride 101, carbon dioxide 28, anion gap of 9, BUN 17, and creatinine 0.9. IMPRESSION: A 77-year-old male with history of lung cancer, history of paroxysmal atrial fibrillation on normal sinus, feeling weak, chronic obstructive pulmonary disease, failure to thrive, status post chemotherapy, status post radiation, and history of liver and bone metastasis, RECOMMENDATIONS: Continue Eliquis. Continue Cardizem. Continue Zaroxolyn Monday, Monday, and Monday. Continue prednisone. Told the nurse to put a bedside commode, increase in nutritional support. We will follow with you. Thank you Dr. Bullard/Dr. Briggs for providing us the opportunity in taking care of the patient, Salvador Alvarenga. Aura Orozco MD
--- NOTE | 2018-05-01 16:12 | CP.PCM.PN ---
Subjective - Date & Time of Evaluation Date of Evaluation: 05/01/18 Time of Evaluation: 16:09 - Subjective Subjective: PGY-2 heme/onc progress note for Dr Lamont Bullard No acute events noted overnight. Patient stated he did not have much of an appetite today. Wanted to know what the plan was and where he will go after leaving the hospital. Complained of cough. Appeared upset and questioned whether he should travel back to [place] and fight his disease there. Objective - Vital Signs/Intake and Output Vital Signs (last 24 hours): Temp Pulse Resp BP Pulse Ox 98 F 70 20 98/66 L 96 05/01/18 08:09 05/01/18 08:09 05/01/18 08:09 05/01/18 08:09 05/01/18 08:09 Intake and Output: 05/01/18 05/01/18 06:59 18:59 Intake Total 1800 Output Total 3600 Balance -1800 - Medications Medications: Current Medications Acetylcysteine (Acetylcysteine 20%) 4 ml IH BIDRESP [facility] Last Admin: 05/01/18 08:10 Dose: 4 ml Apixaban (Eliquis) 5 mg PO BID [facility]; Protocol Last Admin: 05/01/18 09:25 Dose: 5 mg Benzonatate (Tessalon Perles) 100 mg PO TID PRN PRN Reason: Cough Last Admin: 04/29/18 21:44 Dose: 100 mg Budesonide (Pulmicort Respules) 0.5 mg IH [id number] [facility] Last Admin: 05/01/18 08:10 Dose: 0.5 mg Diltiazem HCl (Cardizem Cd) 120 mg PO DAILY [facility] Last Admin: 05/01/18 09:25 Dose: 120 mg Doxycycline Hyclate (Doryx) 100 mg PO Q12 [facility]; Protocol Last Admin: 05/01/18 09:25 Dose: 100 mg Guaifenesin/Dextromethorphan (Robitussin Dm) 5 ml PO Q4H PRN PRN Reason: Cough Last Admin: 04/29/18 21:44 Dose: 5 ml Sodium Chloride (Sodium Chloride 0.9%) 1,000 mls @ 40 mls/hr IV .Q24H [facility] Last Admin: 04/29/18 05:19 Dose: 40 mls/hr Meropenem (Merrem Iv 1 Gm Premix) 1 gm in 50 mls @ 100 mls/hr IVPB Q8 [facility]; Protocol Last Admin: 05/01/18 14:40 Dose: 100 mls/hr Levalbuterol HCl (Xopenex) 0.63 mg IH [id number] PRN PRN Reason: Shortness of Breath Last Admin: 04/27/18 19:48 Dose: 0.63 mg Levalbuterol HCl (Xopenex) 0.63 mg IH TIDRESP [facility] Last Admin: 05/01/18 14:00 Dose: 0.63 mg Metolazone (Zaroxolyn) 2.5 mg PO MWF [facility] Last Admin: 04/30/18 09:25 Dose: 2.5 mg Melatonin [Melatonin (] 10 Mg (Home Med)) 10 mg PO HS [facility] Last Admin: 04/30/18 21:28 Dose: Not Given Nystatin (Nystatin Oral Susp) 5 ml PO QID [facility] Last Admin: 05/01/18 14:40 Dose: 5 ml Pantoprazole Sodium (Protonix Ec Tab) 40 mg PO 0600 [facility] Prednisone (Prednisone Tab) 10 mg PO 0800 [facility] Last Admin: 05/01/18 09:25 Dose: 10 mg Sotalol HCl (Betapace) 80 mg PO BID [facility] Last Admin: 05/01/18 09:25 Dose: 80 mg - Labs Labs: 04/29/18 05:30 04/29/18 05:30 - Additional Findings Additional findings: - Constitutional Appears: Well - Cardiovascular Exam Cardiovascular Exam: REGULAR RHYTHM, +S1, +S2. absent: Murmur - GI/Abdominal Exam GI & Abdominal Exam: Soft, Normal Bowel Sounds. absent: Tenderness - Extremities Exam Extremities Exam: Full ROM, Normal Capillary Refill, Normal Inspection. absent: Joint Swelling, Pedal Edema Assessment and Plan - Assessment and Plan (Free Text) Plan: Mr. Alvarenga is a 77 y/o man with pmhx significant for afib, COPD; extensive stage SCLC with liver and lytic bone lesions being treated with cis/etop who is adm itted with failure to thrive; possible AMS and presumably mutlifocal HCAP: #History of atrial fibrillation #History of small cell lung cancer stage 4 on radiation and chemotherapy #COPD #SIRS, consider sepsis due to multifocal HCAP Plan: Continue with abx per ID. Will need PT consultation and likely rehab stay; Chemotherapy on hold till completion of abx course and recovery. Continue Merrem and Doxycycline day 5 of 4-7 days. Reviewed brain MRI - did not show mass lesions or CVA. On Eliquis 5 mg BID,Cardizem 120 mg daily,Zaroxylyn 2.5 mg MWF, Prednisone 10 mg daily, Sotalol [address] of chest showed multifocal pneumonia. On IV antibiotics. Mental status improved. Awake and alert.
[2018-05-01] MEDS: MELATONIN 10 MG PO SCH (22:00)
[2018-05-02] MEDS: Meropenem IV 1 gm in NS 1 GM/50 ML BAG IVPB SCH ×3 (05:32→21:41)
[2018-05-02] MEDS: Levalbuterol 0.63 MG/3 ML Inhal Soln UD IH SCH ×3 (08:03→20:53)
[2018-05-02] MEDS: Acetylcysteine 20% Inhal Soln (4ml) IH SCH ×2 (08:03→20:52)
[2018-05-02] MEDS: Budesonide 0.5 mg/2 ml Inhal Susp UD IH SCH ×2 (08:03→20:53)
[2018-05-02] MEDS: metOLazone 2.5 MG TAB PO SCH (09:51)
[2018-05-02] MEDS: Nystatin 100,000 Units/ml Oral Susp 5 ml UD PO SCH ×4 (09:54→21:41)
[2018-05-02] MEDS: diltiaZEM 120 mg/24 Hours CD Cap PO SCH (10:03)
--- NOTE | 2018-05-02 14:13 | PN ---
DATE: 05/02/2018 PULMONARY PROGRESS NOTE REFERRING PHYSICIAN: Erasmo Briggs MD SUBJECTIVE: The patient is lying in bed. No acute distress. No overnight events reported. Reports occasional cough. No headache, rhinitis, chest pain, abdominal pain, nausea, vomiting, diarrhea, leg pain, or leg swelling reported. OBJECTIVE: GENERAL: No acute distress. VITAL SIGNS: Blood pressure 113/72, pulse 91, temperature 98.1, and oxygen saturation 92%. HEENT: Moist mucous membranes. Oral thrush. NECK: Supple. No JVD. LUNGS: Scattered rhonchi bilaterally. CARDIOVASCULAR: S1 and S2, audible. ABDOMEN: Soft and nontender. No distension. No organomegaly. EXTREMITIES: No bilateral lower extremity edema. NEUROLOGIC: Awake, alert, and verbal. Follows commands. MEDICATIONS: Reviewed. Mucomyst 4 mL inhalation twice a day, Eliquis 5 mg twice a day, Tessalon Perles 100 mg three times a day p.r.n., Pulmicort 0.5 mg inhalation every 12 hours, Cardizem 120 mg p.o. daily, doxycycline 100 mg every 12 hours, Robitussin 5 mL every 4 hours p.r.n., Xopenex 0.63 mg inhalation every 6 hours p.r.n., Xopenex 0.63 mg inhalation three times a day, meropenem 1 g every 8 hours, metolazone 2.5 mg Monday, Monday and Monday, melatonin 10 mg at bedtime, nystatin oral suspension 5 mL four times a day, Protonix 40 mg daily, prednisone 10 mg daily, sodium chloride 0.9% 1000 mL at 40 mL per hour, and sotalol 80 mg twice a day. LABORATORY DATA: Reviewed. Blood culture preliminary no growth after 4 days. IMPRESSION AND PLAN: Unresectable lung cancer, requiring radiation and chemotherapy; chronic obstructive lung disease; history of paroxysmal atrial fibrillation; and metastatic lung cancer and oral thrush. Continue inhaled bronchodilators, antibiotic therapy and steroids. The patient currently on anticoagulation therapy. Continue gastric prophylaxis. Continue nystatin oral suspension for oral thrush. The patient would benefit from physical therapy. This patient was seen and examined with Dr. Yi. Discussed assessment and plan as described above. Thank you for this consult. We will follow with you. Juan Carlos Paul APN Aura Yi MD [facility] # [id number]
--- NOTE | 2018-05-02 14:58 | PN ---
DATE: 05/02/2018 REASON FOR CONSULTATION AND FOLLOWUP: Cardiac evaluation, history of paroxysmal atrial fibrillation, history of small cell cancer, stage IV, status post radiation, status post chemo, COPD, admitted for failure to thrive. SUBJECTIVE: The patient denies any chest pain, shortness of breath, or any palpitations. The patient is not in apparent distress. PHYSICAL EXAMINATION: GENERAL: Lying flat in the bed, was complaining yesterday very weak, wanted a commode at bedside, which was ordered, commode is at the bedside. VITAL SIGNS: Temperature afebrile, heart rate 86, blood pressure 113/72. HEENT: PERRLA. Extraocular muscles are intact. NECK: Supple. No carotid bruit or thyromegaly. CHEST: Clear to auscultation. HEART: S1 and S2 regular. ABDOMEN: Soft. EXTREMITIES: Clubbing and cyanosis are negative. LABORATORY DATA: Blood workup as follows: WBC 12.0, hemoglobin 9.3, hematocrit 30, and platelet count 197. Chemistry shows sodium 134, potassium 3.9, chloride 101, carbon dioxide 28, anion gap of 8, BUN 17, and creatinine 0.6. IMPRESSION: A 77-year-old male with past medical history significant for lung cancer; history of paroxysmal atrial fibrillation, now in normal sinus, feeling weak; chronic obstructive pulmonary disease; failure to thrive; status post chemo; status post radiation; and history of liver and bone metastasis. RECOMMENDATIONS: Continue sotalol 80 b.i.d. The patient is in normal sinus. Continue Cardizem, continue Eliquis 5. CVS status is stable. We will discontinue IV fluids if the p.o. becomes adequate. Otherwise, the patient is stable from a cardiac point of view. Discharge planning, clinical social worker for discharge planning. Aura Orozco MD
[2018-05-02] MEDS: Levalbuterol 0.63 MG/3 ML Inhal Soln UD IH PRN (17:34)
--- NOTE | 2018-05-02 18:56 | CP.PCM.PN ---
Subjective - Date & Time of Evaluation Date of Evaluation: 05/02/18 Time of Evaluation: 09:10 - Subjective Subjective: Not in distress, afebrile, no diarrhea, no nausea. Objective - Vital Signs/Intake and Output Vital Signs (last 24 hours): Temp Pulse Resp BP Pulse Ox 98 F 70 20 98/66 L 96 05/01/18 08:09 05/01/18 08:09 05/01/18 08:09 05/01/18 08:09 05/01/18 08:09 Intake and Output: 05/01/18 05/01/18 06:59 18:59 Intake Total 1800 Output Total 3600 Balance -1800 - Medications Medications: Current Medications Acetylcysteine (Acetylcysteine 20%) 4 ml IH BIDRESP [facility] Last Admin: 05/01/18 08:10 Dose: 4 ml Apixaban (Eliquis) 5 mg PO BID [facility]; Protocol Last Admin: 05/01/18 09:25 Dose: 5 mg Benzonatate (Tessalon Perles) 100 mg PO TID PRN PRN Reason: Cough Last Admin: 04/29/18 21:44 Dose: 100 mg Budesonide (Pulmicort Respules) 0.5 mg IH [id number] [facility] Last Admin: 05/01/18 08:10 Dose: 0.5 mg Diltiazem HCl (Cardizem Cd) 120 mg PO DAILY [facility] Last Admin: 05/01/18 09:25 Dose: 120 mg Doxycycline Hyclate (Doryx) 100 mg PO Q12 [facility]; Protocol Last Admin: 05/01/18 09:25 Dose: 100 mg Guaifenesin/Dextromethorphan (Robitussin Dm) 5 ml PO Q4H PRN PRN Reason: Cough Last Admin: 04/29/18 21:44 Dose: 5 ml Sodium Chloride (Sodium Chloride 0.9%) 1,000 mls @ 40 mls/hr IV .Q24H [facility] Last Admin: 04/29/18 05:19 Dose: 40 mls/hr Meropenem (Merrem Iv 1 Gm Premix) 1 gm in 50 mls @ 100 mls/hr IVPB Q8 [facility]; Protocol Last Admin: 05/01/18 14:40 Dose: 100 mls/hr Levalbuterol HCl (Xopenex) 0.63 mg IH [id number] PRN PRN Reason: Shortness of Breath Last Admin: 04/27/18 19:48 Dose: 0.63 mg Levalbuterol HCl (Xopenex) 0.63 mg IH TIDRESP [facility] Last Admin: 05/01/18 14:00 Dose: 0.63 mg Metolazone (Zaroxolyn) 2.5 mg PO MWF [facility] Last Admin: 04/30/18 09:25 Dose: 2.5 mg Melatonin [Melatonin (] 10 Mg (Home Med)) 10 mg PO HS [facility] Last Admin: 04/30/18 21:28 Dose: Not Given Nystatin (Nystatin Oral Susp) 5 ml PO QID [facility] Last Admin: 05/01/18 14:40 Dose: 5 ml Pantoprazole Sodium (Protonix Ec Tab) 40 mg PO 0600 [facility] Prednisone (Prednisone Tab) 10 mg PO 0800 [facility] Last Admin: 05/01/18 09:25 Dose: 10 mg Sotalol HCl (Betapace) 80 mg PO BID [facility] Last Admin: 05/01/18 09:25 Dose: 80 mg - Labs Labs: 04/29/18 05:30 04/29/18 05:30 - Constitutional Appears: Chronically Ill - Head Exam Head Exam: NORMAL INSPECTION - ENT Exam ENT Exam: Mucous Membranes Moist - Neck Exam Neck Exam: absent: Meningismus - Respiratory Exam Respiratory Exam: Decreased Breath Sounds - Cardiovascular Exam Cardiovascular Exam: +S1, +S2 - GI/Abdominal Exam GI & Abdominal Exam: Soft. 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
[2018-05-02] MEDS: Pantoprazole 40 mg EC Tab PO SCH (21:11)
[2018-05-02] MEDS: MELATONIN 10 MG PO SCH (21:41)
[2018-05-03] MEDS: Meropenem IV 1 gm in NS 1 GM/50 ML BAG IVPB SCH ×3 (05:21→21:11)
[2018-05-03] MEDS: Pantoprazole 40 mg EC Tab PO SCH (05:21)
--- NOTE | 2018-05-03 07:06 | CP.PCM.PN ---
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 Orozco Objective - Vital Signs/Intake and Output Vital Signs (last 24 hours): Temp Pulse Resp BP Pulse Ox 98.2 F 80 17 99/61 L 96 05/03/18 00:00 05/03/18 00:00 05/03/18 00:00 05/03/18 00:00 05/03/18 00:00 Intake and Output: 05/03/18 05/03/18 06:59 18:59 Intake Total 1920 Output Total 600 Balance 1320 - Medications Medications: Current Medications Acetylcysteine (Acetylcysteine 20%) 4 ml IH BIDRESP [facility] Last Admin: 05/02/18 20:52 Dose: 4 ml Apixaban (Eliquis) 5 mg PO BID [facility]; Protocol Last Admin: 05/02/18 18:16 Dose: 5 mg Benzonatate (Tessalon Perles) 100 mg PO TID PRN PRN Reason: Cough Last Admin: 04/29/18 21:44 Dose: 100 mg Budesonide (Pulmicort Respules) 0.5 mg IH [id number] [facility] Last Admin: 05/02/18 20:53 Dose: 0.5 mg Diltiazem HCl (Cardizem Cd) 120 mg PO DAILY [facility] Last Admin: 05/02/18 10:03 Dose: Not Given Doxycycline Hyclate (Doryx) 100 mg PO Q12 [facility]; Protocol Last Admin: 05/02/18 21:41 Dose: 100 mg Guaifenesin/Dextromethorphan (Robitussin Dm) 5 ml PO Q4H PRN PRN Reason: Cough Last Admin: 04/29/18 21:44 Dose: 5 ml Sodium Chloride (Sodium Chloride 0.9%) 1,000 mls @ 40 mls/hr IV .Q24H [facility] Last Admin: 04/29/18 05:19 Dose: 40 mls/hr Meropenem (Merrem Iv 1 Gm Premix) 1 gm in 50 mls @ 100 mls/hr IVPB Q8 [facility]; Protocol Last Admin: 05/03/18 05:21 Dose: 100 mls/hr Levalbuterol HCl (Xopenex) 0.63 mg IH [id number] PRN PRN Reason: Shortness of Breath Last Admin: 05/02/18 17:34 Dose: 0.63 mg Levalbuterol HCl (Xopenex) 0.63 mg IH TIDRESP [facility] Last Admin: 05/02/18 20:53 Dose: 0.63 mg Metolazone (Zaroxolyn) 2.5 mg PO MWF [facility] Last Admin: 05/02/18 09:51 Dose: 2.5 mg Melatonin [Melatonin (] 10 Mg (Home Med)) 10 mg PO HS [facility] Last Admin: 05/02/18 21:41 Dose: Not Given Nystatin (Nystatin Oral Susp) 5 ml PO QID [facility] Last Admin: 05/02/18 21:41 Dose: 5 ml Pantoprazole Sodium (Protonix Ec Tab) 40 mg PO 0600 [facility] Last Admin: 05/03/18 05:21 Dose: 40 mg Prednisone (Prednisone Tab) 10 mg PO 0800 [facility] Last Admin: 05/02/18 09:51 Dose: 10 mg Sotalol HCl (Betapace) 80 mg PO BID [facility] Last Admin: 05/02/18 18:16 Dose: 80 mg - Labs Labs: 04/29/18 05:30 04/29/18 05:30 - Constitutional Appears: Non-toxic, No Acute Distress - Head Exam Head Exam: NORMAL INSPECTION, NORMOCEPHALIC - Eye Exam Eye Exam: Normal appearance Pupil Exam: NORMAL ACCOMODATION - ENT Exam ENT Exam: Mucous Membranes Dry - Respiratory Exam Respiratory Exam: Decreased Breath Sounds, Clear to Ausculation Bilateral, NORMAL BREATHING PATTERN - Cardiovascular Exam Cardiovascular Exam: +S1, +S2 Additional comments: right chest port - GI/Abdominal Exam GI & Abdominal Exam: Soft, Normal Bowel Sounds - Extremities Exam Extremities Exam: Full ROM, Normal Capillary Refill - Neurological Exam Neurological Exam: Alert, Awake, Oriented x3 - Psychiatric Exam Psychiatric exam: Normal Affect, Normal Mood - Skin Skin Exam: Dry, Normal Color, Warm Assessment and Plan - Assessment and Plan (Free Text) Assessment: A 77 year old male who came in to the ER due to loss of appetite,weight loss, admitted for failure to thrive. 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 denies chest pain or shortness of breath. Cardiac status stable . CT of chest showed multifocal pneumonia. On IV antibiotics. Mental status improved. Awake and alert .As per Oncology, to resume chemotherapy after completion of antibiotics. Cardiac status stable. discharge planning. Plan: Cardiac status stable Heart rate controlled Blood pressure controlled On Eliquis 5 mg BID,Cardizem 120 mg daily,Zaroxylyn 2.5 mg MWF, Prednisone 10 mg daily, Sotalol 80 mg BID Continue current treatment Continue current medications Continue IV antibiotics as per ID for pneumonia Pulmonary on consult Nutritional support Physical therapy Discharge planning Will follow up Plan and treatment discussed with Dr. Orozco
[2018-05-03] MEDS: Acetylcysteine 20% Inhal Soln (4ml) IH SCH ×2 (07:33→20:11)
[2018-05-03] MEDS: Levalbuterol 0.63 MG/3 ML Inhal Soln UD IH SCH ×3 (07:33→20:11)
[2018-05-03] MEDS: Budesonide 0.5 mg/2 ml Inhal Susp UD IH SCH ×2 (07:33→20:11)
--- NOTE | 2018-05-03 09:15 | CP.PCM.PN ---
Subjective - Date & Time of Evaluation Date of Evaluation: 05/03/18 Time of Evaluation: 09:08 - Subjective Subjective: PGY-2 heme/onc progress note for Dr Lamont Bullard No acute events overnight. Complained of cough, appeared depressed, denied pain. Objective - Vital Signs/Intake and Output Vital Signs (last 24 hours): Temp Pulse Resp BP Pulse Ox 98.7 F 67 18 111/69 95 05/03/18 08:06 05/03/18 08:06 05/03/18 08:06 05/03/18 08:06 05/03/18 08:06 Intake and Output: 05/03/18 05/03/18 06:59 18:59 Intake Total 1920 Output Total 600 Balance 1320 - Medications Medications: Current Medications Acetylcysteine (Acetylcysteine 20%) 4 ml IH BIDRESP [facility] Last Admin: 05/03/18 07:33 Dose: 4 ml Apixaban (Eliquis) 5 mg PO BID [facility]; Protocol Last Admin: 05/02/18 18:16 Dose: 5 mg Benzonatate (Tessalon Perles) 100 mg PO TID PRN PRN Reason: Cough Last Admin: 04/29/18 21:44 Dose: 100 mg Budesonide (Pulmicort Respules) 0.5 mg IH [id number] [facility] Last Admin: 05/03/18 07:33 Dose: 0.5 mg Diltiazem HCl (Cardizem Cd) 120 mg PO DAILY [facility] Last Admin: 05/02/18 10:03 Dose: Not Given Doxycycline Hyclate (Doryx) 100 mg PO Q12 [facility]; Protocol Last Admin: 05/02/18 21:41 Dose: 100 mg Guaifenesin/Dextromethorphan (Robitussin Dm) 5 ml PO Q4H PRN PRN Reason: Cough Last Admin: 04/29/18 21:44 Dose: 5 ml Sodium Chloride (Sodium Chloride 0.9%) 1,000 mls @ 40 mls/hr IV .Q24H [facility] Last Admin: 04/29/18 05:19 Dose: 40 mls/hr Meropenem (Merrem Iv 1 Gm Premix) 1 gm in 50 mls @ 100 mls/hr IVPB Q8 [facility]; Protocol Last Admin: 05/03/18 05:21 Dose: 100 mls/hr Levalbuterol HCl (Xopenex) 0.63 mg IH [id number] PRN PRN Reason: Shortness of Breath Last Admin: 05/02/18 17:34 Dose: 0.63 mg Levalbuterol HCl (Xopenex) 0.63 mg IH TIDRESP [facility] Last Admin: 05/03/18 07:33 Dose: 0.63 mg Metolazone (Zaroxolyn) 2.5 mg PO MWF [facility] Last Admin: 05/02/18 09:51 Dose: 2.5 mg Melatonin [Melatonin (] 10 Mg (Home Med)) 10 mg PO HS [facility] Last Admin: 05/02/18 21:41 Dose: Not Given Nystatin (Nystatin Oral Susp) 5 ml PO QID [facility] Last Admin: 05/02/18 21:41 Dose: 5 ml Pantoprazole Sodium (Protonix Ec Tab) 40 mg PO 0600 [facility] Last Admin: 05/03/18 05:21 Dose: 40 mg Prednisone (Prednisone Tab) 10 mg PO 0800 [facility] Last Admin: 05/03/18 08:26 Dose: 10 mg Sotalol HCl (Betapace) 80 mg PO BID [facility] Last Admin: 05/02/18 18:16 Dose: 80 mg - Labs Labs: 04/29/18 05:30 04/29/18 05:30 - Additional Findings Additional findings: - Constitutional Appears: Well - Cardiovascular Exam Cardiovascular Exam: REGULAR RHYTHM, +S1, +S2. absent: Murmur - GI/Abdominal Exam GI & Abdominal Exam: Soft, Normal Bowel Sounds. absent: Tenderness - Extremities Exam Extremities Exam: Full ROM, Normal Capillary Refill, Normal Inspection. absent: Joint Swelling, Pedal Edema Assessment and Plan - Assessment and Plan (Free Text) Plan: Mr. 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 Will need PT consultation and likely rehab stay - at this time PT is recommending subacute rehab however patient declined [facility], he wishes to go to TCU however insurance will not cover him thus he wants to go home; Chemotherapy on hold till completion of abx course and recovery. Continue Merrem and Doxycycline day 7 of 7 days. Reviewed brain MRI - did not show mass lesions or CVA. On Eliquis 5 mg BID, Cardizem 120 mg daily, Zaroxylyn 2.5 mg MWF, Prednisone 10 mg daily, Sotalol [address] of chest showed multifocal pneumonia. On IV antibiotics. Mental status improved. Awake and alert. Cardio Dr Orozco and Pulm Dr Yi on board. Per pulm recommendation - continue pulmicort 0.5mg ih q12h and prednisone 10mg po qd and xopenex 0.63mg ih q6h prn and scheduled. Nystatin for oral thrush. Case discussed with Dr Lamont Bullard
[2018-05-03] MEDS: Nystatin 100,000 Units/ml Oral Susp 5 ml UD PO SCH ×4 (09:49→21:12)
[2018-05-03] MEDS: diltiaZEM 120 mg/24 Hours CD Cap PO SCH (09:50)
--- NOTE | 2018-05-03 13:22 | PN ---
DATE: 05/03/2018 PULMONARY PROGRESS NOTE REFERRING PHYSICIAN: Erasmo Briggs MD SUBJECTIVE: The patient is lying in bed. No acute distress. No overnight events reported. The patient reports feeling better today. No cough, shortness of breath, headache, rhinitis, chest pain, abdominal pain, nausea, vomiting, diarrhea, leg pain and leg swelling reported. OBJECTIVE: GENERAL: No acute distress. VITAL SIGNS: Blood pressure 111/69, pulse 67, temperature 98.7 and oxygen saturation 95%. HEENT: Moist mucus membranes. Improving oral thrush. NECK: Supple. No JVD. LUNGS: Scattered rhonchi bilaterally. CARDIOVASCULAR: S1 and S2, audible. ABDOMEN: Soft and nontender. No distension. No organomegaly. EXTREMITIES: No bilateral lower extremity edema. NEUROLOGICAL: Awake, alert and verbal. Follows commands. MEDICATIONS: Reviewed. Mucomyst 4 mL inhalation twice a day, Eliquis 5 mg twice a day, Tessalon Perles 100 mg three times a day p.r.n., Pulmicort 0.5 mg inhalation every 12 hours, Cardizem 120 mg daily, doxycycline 100 mg every 12 hours, Robitussin DM 5 mL every 4 hours p.r.n., Xopenex 0.63 mg inhalation every 6 hours p.r.n., Xopenex 0.63 mg inhalation three times a day, meropenem 1 g every 8 hours, metolazone 2.5 mg Monday, Monday and Monday, melatonin 10 mg at bedtime, nystatin 5 mL four times a day, Protonix 40 mg daily, prednisone 10 mg daily, sodium chloride 0.9% 1000 mL at 40 mL per hour, and sotalol 80 mg twice a day. LABORATORY DATA: Reviewed. No new labs since yesterday. IMPRESSION AND PLAN: Unresectable lung cancer, requiring radiation and chemotherapy in the past; chronic obstructive lung disease; history of paroxysmal atrial fibrillation; metastatic lung cancer and oral thrush. Continue inhaled bronchodilators, antibiotic therapy and steroids. Continue nystatin oral suspension. Currently on anticoagulation therapy. Continue gastric prophylaxis. The patient would benefit from physical therapy. This patient was seen and examined with Dr. Yi. Discussed assessment and plan as described above. Thank you for this consult. We will follow with you. Juan Carlos Paul APN Aura Yi MD [facility] # [id number]
--- NOTE | 2018-05-03 15:42 | CP.PCM.PN ---
Subjective - Date & Time of Evaluation Date of Evaluation: 05/03/18 Time of Evaluation: 09:40 - Subjective Subjective: Comfortable in bed, not in distress, no fevers. No diarrhea. Objective - Vital Signs/Intake and Output Vital Signs (last 24 hours): Temp Pulse Resp BP Pulse Ox 98.3 F 91 H 20 102/68 94 L 05/02/18 16:29 05/02/18 18:16 05/02/18 16:29 05/02/18 18:16 05/02/18 16:29 Intake and Output: 05/02/18 05/02/18 06:59 18:59 Intake Total 720 Output Total 300 Balance 420 - Medications Medications: Current Medications Acetylcysteine (Acetylcysteine 20%) 4 ml IH BIDRESP [facility] Last Admin: 05/02/18 08:03 Dose: Not Given Apixaban (Eliquis) 5 mg PO BID [facility]; Protocol Last Admin: 05/02/18 18:16 Dose: 5 mg Benzonatate (Tessalon Perles) 100 mg PO TID PRN PRN Reason: Cough Last Admin: 04/29/18 21:44 Dose: 100 mg Budesonide (Pulmicort Respules) 0.5 mg IH [id number] [facility] Last Admin: 05/02/18 08:03 Dose: Not Given Diltiazem HCl (Cardizem Cd) 120 mg PO DAILY [facility] Last Admin: 05/02/18 10:03 Dose: Not Given Doxycycline Hyclate (Doryx) 100 mg PO Q12 [facility]; Protocol Last Admin: 05/02/18 09:46 Dose: 100 mg Guaifenesin/Dextromethorphan (Robitussin Dm) 5 ml PO Q4H PRN PRN Reason: Cough Last Admin: 04/29/18 21:44 Dose: 5 ml Sodium Chloride (Sodium Chloride 0.9%) 1,000 mls @ 40 mls/hr IV .Q24H [facility] Last Admin: 04/29/18 05:19 Dose: 40 mls/hr Meropenem (Merrem Iv 1 Gm Premix) 1 gm in 50 mls @ 100 mls/hr IVPB Q8 [facility]; Protocol Last Admin: 05/02/18 15:54 Dose: 100 mls/hr Levalbuterol HCl (Xopenex) 0.63 mg IH [id number] PRN PRN Reason: Shortness of Breath Last Admin: 05/02/18 17:34 Dose: 0.63 mg Levalbuterol HCl (Xopenex) 0.63 mg IH TIDRESP [facility] Last Admin: 05/02/18 13:55 Dose: 0.63 mg Metolazone (Zaroxolyn) 2.5 mg PO MWF [facility] Last Admin: 05/02/18 09:51 Dose: 2.5 mg Melatonin [Melatonin (] 10 Mg (Home Med)) 10 mg PO HS [facility] Last Admin: 05/01/18 22:00 Dose: Not Given Nystatin (Nystatin Oral Susp) 5 ml PO QID [facility] Last Admin: 05/02/18 18:16 Dose: 5 ml Pantoprazole Sodium (Protonix Ec Tab) 40 mg PO 0600 [facility] Prednisone (Prednisone Tab) 10 mg PO 0800 [facility] Last Admin: 05/02/18 09:51 Dose: 10 mg Sotalol HCl (Betapace) 80 mg PO BID [facility] Last Admin: 05/02/18 18:16 Dose: 80 mg - Labs Labs: 04/29/18 05:30 04/29/18 05:30 - Constitutional Appears: No Acute Distress, Chronically Ill - Head Exam Head Exam: NORMAL INSPECTION - Neck Exam Neck Exam: absent: Meningismus - Respiratory Exam Respiratory Exam: Decreased Breath Sounds - Cardiovascular Exam Cardiovascular Exam: +S1, +S2 - GI/Abdominal Exam GI & Abdominal Exam: Soft. absent: Tenderness Assessment and Plan - Assessment and Plan (Free Text) Plan: Assessment sepsis due to multifocal HCAP in this patient with stage 4 lung cancer, with confusion consider toxic-metabolic encephalopathy, slowly improving small cell lung cancer stage 4 on radiation and chemotherapy COPD atrial fibrillation gastritis Plan on Merrem and Doxycycline day 7 of 7 days cultures and nasal MRSA screen are negative; reviewed CT chest showing multifocal infiltrates reviewed brain MRI - did not show mass lesions or CVA will continue to monitor clinically overall prognosis is poor discussed with Dr. Briggs
[2018-05-03] MEDS: guaiFENesin DM 100 mg-10 mg/5 ml UD PO PRN (21:10)
[2018-05-03] MEDS: MELATONIN 10 MG PO SCH (21:11)
[2018-05-04] MEDS: Levalbuterol 0.63 MG/3 ML Inhal Soln UD IH PRN (02:13)
[2018-05-04] MEDS: guaiFENesin DM 100 mg-10 mg/5 ml UD PO PRN ×2 (04:02→20:43)
[2018-05-04] MEDS: Meropenem IV 1 gm in NS 1 GM/50 ML BAG IVPB SCH ×2 (05:41→15:30)
[2018-05-04] MEDS: Pantoprazole 40 mg EC Tab PO SCH (05:42)
[2018-05-04 06:04] LABS: BASO # 0.02 K/mm3 (0.0-2.0); BASO % 0.2 % (0.0-3.0); EOS # 0.2 (0.0-0.7); EOS % 1.7 % (1.5-5.0); GRAN # 9.41 (1.4-6.5); GRAN % 83.1 % (50.0-68.0); HEMOGLOBIN 10.6 g/dL (14.0-18.0); LYMPH # 1.1 (1.2-3.4); LYMPH % 10.1 % (22.0-35.0); MEAN CELL VOLUME 93.6 fl (80.0-105.0); MEAN CORPUSCULAR HEMOGLOBIN 29.4 pg (25.0-35.0); MEAN CORPUSCULAR HGB CONC 31.5 g/dl (31.0-37.0); MEAN PLATELET VOLUME 9.5 fl (7.0-11.0); MONO # 0.6 (0.1-0.6); MONO % 4.9 % (1.0-6.0); RBC 3.6 10^6/uL (3.5-6.1); RED CELL DISTRIBUTION WIDTH 16.9 % (11.5-14.5); WHITE BLOOD COUNT 11.3 10^3/uL (4.5-11.0)
[2018-05-04 06:35] LABS: ALB/GLOB RATIO 0.8 (1.1-1.8); ALBUMIN 2.8 g/dL (3.0-4.8); ALT/SGPT 140 U/L (7-56); AST/SGOT 77 U/L (17-59); BLOOD UREA NITROGEN 27 mg/dL (7-21); CALCIUM 8.8 mg/dL (8.4-10.5); GFR NON-AFRICAN AMERICAN > 60
--- NOTE | 2018-05-04 07:00 | CP.PCM.PN ---
Subjective - Date & Time of Evaluation Date of Evaluation: 05/04/18 Time of Evaluation: 06:25 - Subjective Subjective: Awake, No distress, Lying in bed Reason for consultation and follow up:Cardiac evaluation and follow up of history of atrial fibrillation, history of small cell lung cancer stage 4 on radiation and chemotherapy, COPD, admitted for failure to thrive Seen and examined by me and Dr. Orozco Objective - Vital Signs/Intake and Output Vital Signs (last 24 hours): Temp Pulse Resp BP Pulse Ox 98.2 F 72 19 99/61 L 95 05/03/18 17:46 05/03/18 17:46 05/03/18 17:46 05/03/18 18:42 05/03/18 17:46 Intake and Output: 05/03/18 05/04/18 18:59 06:59 Intake Total 480 720 Output Total 240 Balance 480 480 - Medications Medications: Current Medications Acetylcysteine (Acetylcysteine 20%) 4 ml IH BIDRESP [facility] Last Admin: 05/03/18 20:11 Dose: 4 ml Apixaban (Eliquis) 5 mg PO BID [facility]; Protocol Last Admin: 05/03/18 17:56 Dose: 5 mg Benzonatate (Tessalon Perles) 100 mg PO TID PRN PRN Reason: Cough Last Admin: 04/29/18 21:44 Dose: 100 mg Budesonide (Pulmicort Respules) 0.5 mg IH [id number] [facility] Last Admin: 05/03/18 20:11 Dose: 0.5 mg Diltiazem HCl (Cardizem Cd) 120 mg PO DAILY [facility] Last Admin: 05/03/18 09:50 Dose: 120 mg Doxycycline Hyclate (Doryx) 100 mg PO Q12 [facility]; Protocol Last Admin: 05/03/18 21:09 Dose: 100 mg Guaifenesin/Dextromethorphan (Robitussin Dm) 5 ml PO Q4H PRN PRN Reason: Cough Last Admin: 05/04/18 04:02 Dose: 5 ml Sodium Chloride (Sodium Chloride 0.9%) 1,000 mls @ 40 mls/hr IV .Q24H [facility] Last Admin: 04/29/18 05:19 Dose: 40 mls/hr Meropenem (Merrem Iv 1 Gm Premix) 1 gm in 50 mls @ 100 mls/hr IVPB Q8 [facility]; Protocol Last Admin: 05/04/18 05:41 Dose: 100 mls/hr Levalbuterol HCl (Xopenex) 0.63 mg IH [id number] PRN PRN Reason: Shortness of Breath Last Admin: 05/04/18 02:13 Dose: 0.63 mg Levalbuterol HCl (Xopenex) 0.63 mg IH TIDRESP [facility] Last Admin: 05/03/18 20:11 Dose: 0.63 mg Metolazone (Zaroxolyn) 2.5 mg PO MWF [facility] Last Admin: 05/02/18 09:51 Dose: 2.5 mg Melatonin [Melatonin (] 10 Mg (Home Med)) 10 mg PO HS [facility] Last Admin: 05/03/18 21:11 Dose: Not Given Nystatin (Nystatin Oral Susp) 5 ml PO QID [facility] Last Admin: 05/03/18 21:12 Dose: 5 ml Pantoprazole Sodium (Protonix Ec Tab) 40 mg PO 0600 [facility] Last Admin: 05/04/18 05:42 Dose: 40 mg Prednisone (Prednisone Tab) 10 mg PO 0800 [facility] Last Admin: 05/03/18 08:26 Dose: 10 mg Sotalol HCl (Betapace) 80 mg PO BID [facility] Last Admin: 05/03/18 17:36 Dose: Not Given - Labs Labs: 05/04/18 05:45 05/04/18 05:45 - Constitutional Appears: Non-toxic, No Acute Distress - Head Exam Head Exam: NORMAL INSPECTION, NORMOCEPHALIC - Eye Exam Eye Exam: Normal appearance - ENT Exam ENT Exam: Mucous Membranes Dry - Respiratory Exam Respiratory Exam: Decreased Breath Sounds, NORMAL BREATHING PATTERN - Cardiovascular Exam Cardiovascular Exam: +S1, +S2 Additional comments: right chest port - GI/Abdominal Exam GI & Abdominal Exam: Soft, Normal Bowel Sounds - Neurological Exam Neurological Exam: Alert, Awake - Psychiatric Exam Psychiatric exam: Normal Affect, Normal Mood - Skin Skin Exam: Dry, Normal Color, Warm Assessment and Plan - Assessment and Plan (Free Text) Assessment: A 77 year old male who came in to the ER due to loss of appetite,weight loss, admitted for failure to thrive. 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 denies chest pain or shortness of breath. CT of chest showed multifocal pneumonia. On IV antibiotics. As per Oncology, to resume chemotherapy after completion of antibiotics. Discharge planning.Cardiac status stable.Mental status improved. Awake and alert. clinically improved. Plan: Clinically improved mental status, awake,alert Cardiac status stable Heart rate controlled Blood pressure controlled On Eliquis 5 mg BID,Cardizem 120 mg daily,Zaroxylyn 2.5 mg MWF, Prednisone 10 mg daily, Sotalol 80 mg BID Continue current treatment Continue current medications Continue IV antibiotics as per ID for pneumonia Pulmonary on consult Nutritional support Physical therapy Discharge planning Will follow up Plan and treatment discussed with Dr. Orozco
[2018-05-04] MEDS: Acetylcysteine 20% Inhal Soln (4ml) IH SCH ×2 (07:57→20:17)
[2018-05-04] MEDS: Budesonide 0.5 mg/2 ml Inhal Susp UD IH SCH ×2 (07:57→20:17)
[2018-05-04] MEDS: Levalbuterol 0.63 MG/3 ML Inhal Soln UD IH SCH ×3 (07:57→20:18)
--- NOTE | 2018-05-04 08:10 | PN ---
DATE: 05/03/2018 LOCATION: The patient is in room 361, bed 2. A detailed progress note had been already written by Melany Glover. This is an additional note. The patient being followed for paroxysmal atrial fibrillation, history of small-cell cancer stage IV, status post radiation, and COPD, admitted for failure to thrive. SUBJECTIVE: The patient is in lying in bed without any chest pain, shortness of breath, or palpitation. PHYSICAL EXAMINATION: VITAL SIGNS: Blood pressure 111/69, respiratory rate 18, pulse 67, temperature 98.7. HEENT: Head is normocephalic. Eyes: Pupils are normal, conjunctivae slightly pale. LUNGS: No significant rales. CARDIOVASCULAR: S1 and S2. ABDOMEN: Soft and nontender. No organomegaly. EXTREMITIES: No clubbing, no cyanosis. LABORATORY DATA: The patient's labs were done on 04/29/2018 and they were reported in our previous progress note. DIAGNOSES: Small-cell cancer of the lungs stage IV, history of paroxysmal atrial fibrillation, now maintaining sinus, chronic obstructive pulmonary disease, status post chemo and status post radiation therapy, history of liver and bone metastases, failure to thrive. PLAN: To continue present therapy with Eliquis 5 mg b.i.d., sotalol 80 mg b.i.d., doxycycline hyclate 100 mg p.o. every 12 hours, and prednisone 10 mg daily. He is getting IV fluid therapy. Metolazone 2.5 mg p.o. Monday, Monday,and Monday. We will follow with you. Aura Macario MD
[2018-05-04] MEDS: diltiaZEM 120 mg/24 Hours CD Cap PO SCH (09:42)
[2018-05-04] MEDS: Nystatin 100,000 Units/ml Oral Susp 5 ml UD PO SCH ×4 (09:43→22:47)
[2018-05-04] MEDS: metOLazone 2.5 MG TAB PO SCH (09:45)
--- NOTE | 2018-05-04 12:43 | PN ---
DATE: 05/04/2018 PULMONARY PROGRESS NOTE REFERRING PHYSICIAN: Dr. Erasmo Briggs. SUBJECTIVE: The patient is lying in bed, head of bed elevated. No acute distress. No overnight events reported. No headache, rhinitis, shortness of breath, cough, chest pain, abdominal pain, nausea, vomiting, diarrhea, leg pain, or leg swelling reported. OBJECTIVE: GENERAL: No acute distress. VITAL SIGNS: Blood pressure 128/80, pulse 98, temperature 98.5, and oxygen saturation 92%. HEENT: Moist mucus membranes. Improving oral thrush. NECK: Supple. No JVD. LUNGS: Scattered rhonchi bilaterally. CARDIOVASCULAR: S1 and S2 audible. ABDOMEN: Soft and nontender. No distension. No organomegaly. EXTREMITIES: No bilateral lower extremity edema. NEUROLOGICAL: Awake, alert, and verbal. Follows commands. MEDICATIONS: Reviewed. Tylenol 650 mg every 6 hours p.r.n. for mild pain, Mucomyst 4 mL inhalation twice a day, Eliquis 5 mg twice a day, Tessalon Perles 100 mg three times a day p.r.n., Pulmicort 0.5 mg inhalation every 12 hours, Cardizem 120 mg daily, doxycycline 100 mg every 12 hours, Robitussin DM 5 mL every 4 hours p.r.n., Xopenex 0.63 mg inhalation every 6 hours p.r.n., Xopenex 0.63 mg inhalation three times a day, meropenem 1 g every 8 hours, metolazone 2.5 mg Monday, Monday and Monday, melatonin 10 mg at bedtime, nystatin 5 mL p.o. four times a day, Protonix 40 mg daily, prednisone 10 mg daily, sodium chloride 0.9% 1000 mL at 40 mL per hour, sotalol 80 mg twice a day, and tramadol 50 mg every 8 hours p.r.n. for moderate pain. LABORATORY DATA: Reviewed. WBC 11.3, RBC, hemoglobin 10.6, hematocrit 33.7, and platelets 159. Sodium 134, potassium 4.2, chloride 104, carbon dioxide 25, anion gap 9, BUN 27, creatinine 0.7, GFR greater than 60, random glucose 196, calcium 8.8, total bilirubin 0.6, AST 77, ALT 140, alkaline phosphatase 105, total protein 6.4, albumin 2.8, globulin 3.6 and albumin-globulin ratio 0.8. IMPRESSION AND PLAN: Unresectable lung cancer, requiring radiation and chemotherapy in the past; chronic obstructive lung disease; history of paroxysmal atrial fibrillation; metastatic lung cancer, and oral thrush. Continue inhaled bronchodilators, antibiotic therapy, and steroids. Continue nystatin oral suspension. The patient is currently on anticoagulation therapy. Continue gastric prophylaxis. The patient would benefit from physical therapy. We will order swallow evaluation to be done to evaluate for dysphagia. This patient was seen and examined with Dr. Yi. Discussed assessment and plan as described above. Thank you for this consult. We will follow with you. Juan Carlos Paul APN Aura Yi MD [facility]
--- NOTE | 2018-05-04 15:14 | PN ---
DATE: 05/04/2018 LOCATION: The patient in room 361, bed 2. The patient's detailed progress note has been already written by Melany Glover. This is additional note. SUBJECTIVE: The patient has known case of small cell cancer of the lungs stage IV; multiple metastasis status post radiation and chemotherapy with history of COPD and history of atrial fibrillation; admitted with shortness of breath, found to have multifocal pneumonia. The patient is getting antibiotic and therapy. The patient is also being treated for atrial fibrillation, and he is now in sinus rhythm. So, we will continue antibiotics; prednisone, Protonix, sotalol 80 mg b.i.d., diltiazem CD 120 mg daily, Eliquis 5 mg b.i.d. and Zaroxolyn 2.5 mg p.o. Monday, Monday and Monday. LABORATORY DATA: Today's labs; WBC 11.3, hemoglobin 10.6, hematocrit 33.7, and platelet 159. Sodium 134, potassium 4.2, BUN 27, creatinine 0.7 and random sugar 196. Liver enzymes elevated. SGOT of 77, SGPT 140, total protein 6.4, and albumin low 2.8. PLAN: The patient , continue nutritional support along with the medical therapy. We will follow with you. Aura Macario MD
--- NOTE | 2018-05-04 15:24 | CP.PCM.PN ---
Subjective - Date & Time of Evaluation Date of Evaluation: 05/04/18 Time of Evaluation: 15:21 - Subjective Subjective: PGY-[address] Bullard/Dr Briggs No acute events noted overnight. Patient speech incoherent at times - at times patient moaning however denies any pain. Stated he hasn't attempted to sit in chair due to feeling too weak. Objective - Vital Signs/Intake and Output Vital Signs (last 24 hours): Temp Pulse Resp BP Pulse Ox 98.5 F 98 H 20 128/80 92 L 05/04/18 08:18 05/04/18 09:42 05/04/18 08:18 05/04/18 09:42 05/04/18 08:18 Intake and Output: 05/04/18 05/04/18 06:59 18:59 Intake Total 720 Output Total 240 Balance 480 - Medications Medications: Current Medications Acetaminophen (Tylenol 325mg Tab) 650 mg PO Q6H PRN PRN Reason: Pain, Mild (1-3) Acetylcysteine (Acetylcysteine 20%) 4 ml IH BIDRESP [facility] Last Admin: 05/04/18 07:57 Dose: Not Given Apixaban (Eliquis) 5 mg PO BID [facility]; Protocol Last Admin: 05/04/18 09:43 Dose: 5 mg Benzonatate (Tessalon Perles) 100 mg PO TID PRN PRN Reason: Cough Last Admin: 04/29/18 21:44 Dose: 100 mg Budesonide (Pulmicort Respules) 0.5 mg IH [id number] [facility] Last Admin: 05/04/18 07:57 Dose: Not Given Diltiazem HCl (Cardizem Cd) 120 mg PO DAILY [facility] Last Admin: 05/04/18 09:42 Dose: 120 mg Doxycycline Hyclate (Doryx) 100 mg PO Q12 [facility]; Protocol Last Admin: 05/04/18 09:42 Dose: 100 mg Guaifenesin/Dextromethorphan (Robitussin Dm) 5 ml PO Q4H PRN PRN Reason: Cough Last Admin: 05/04/18 04:02 Dose: 5 ml Sodium Chloride (Sodium Chloride 0.9%) 1,000 mls @ 40 mls/hr IV .Q24H [facility] Last Admin: 04/29/18 05:19 Dose: 40 mls/hr Meropenem (Merrem Iv 1 Gm Premix) 1 gm in 50 mls @ 100 mls/hr IVPB Q8 [facility]; Protocol Last Admin: 05/04/18 05:41 Dose: 100 mls/hr Levalbuterol HCl (Xopenex) 0.63 mg IH [id number] PRN PRN Reason: Shortness of Breath Last Admin: 05/04/18 02:13 Dose: 0.63 mg Levalbuterol HCl (Xopenex) 0.63 mg IH TIDRESP [facility] Last Admin: 05/04/18 13:37 Dose: Not Given Metolazone (Zaroxolyn) 2.5 mg PO MWF [facility] Last Admin: 05/04/18 09:45 Dose: 2.5 mg Melatonin [Melatonin (] 10 Mg (Home Med)) 10 mg PO HS [facility] Last Admin: 05/03/18 21:11 Dose: Not Given Nystatin (Nystatin Oral Susp) 5 ml PO QID [facility] Last Admin: 05/04/18 09:43 Dose: 5 ml Pantoprazole Sodium (Protonix Ec Tab) 40 mg PO 0600 [facility] Last Admin: 05/04/18 05:42 Dose: 40 mg Prednisone (Prednisone Tab) 10 mg PO 0800 [facility] Last Admin: 05/04/18 09:45 Dose: 10 mg Sotalol HCl (Betapace) 80 mg PO BID [facility] Last Admin: 05/04/18 09:42 Dose: 80 mg Tramadol HCl (Ultram) 50 mg PO Q8H PRN PRN Reason: Pain, moderate (4-7) - Labs Labs: 05/04/18 05:45 05/04/18 05:45 - Additional Findings Additional findings: - Constitutional Appears: Well - Cardiovascular Exam Cardiovascular Exam: REGULAR RHYTHM, +S1, +S2. absent: Murmur - GI/Abdominal Exam GI & Abdominal Exam: Soft, Normal Bowel Sounds. absent: Tenderness - Extremities Exam Extremities Exam: Full ROM, Normal Capillary Refill, Normal Inspection. absent: Joint Swelling, Pedal Edema Assessment and Plan - Assessment and Plan (Free Text) Plan: Mr. 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 Will need PT consultation and likely rehab stay - at this time PT is recommending subacute rehab however patient declined [facility], he wishes to go to TCU however insurance will not cover him however he does not want to go home either - call placed out to son to discuss options; Chemotherapy on hold till completion of abx course and recovery. Merrem and Doxycycline day 7 of 7 days completed. Reviewed brain MRI - did not show mass lesions or CVA. On Eliquis 5 mg BID, Cardizem 120 mg daily, Zaroxylyn 2.5 mg MWF, Prednisone 10 mg daily, Sotalol [address] of chest showed multifocal pneumonia. On IV antibiotics. Mental status improved. Awake and alert. Cardio Dr Orozco and Pulm Dr Yi on board. Per pulm recommendation - continue pulmicort 0.5mg ih q12h and prednisone 10mg po qd and xopenex 0.63mg ih q6h prn and scheduled. Nystatin for oral thrush. Tramadol for pain control. Case discussed with Dr Briggs
--- NOTE | 2018-05-04 16:15 | CP.PCM.PN ---
Subjective - Date & Time of Evaluation Date of Evaluation: 05/04/18 Time of Evaluation: 18:30 - Subjective Subjective: Comfortable in bed, no fevers, not short of breath at rest, appetite still not good, no diarrhea. Objective - Vital Signs/Intake and Output Vital Signs (last 24 hours): Temp Pulse Resp BP Pulse Ox 98.7 F 67 18 111/69 95 05/03/18 08:06 05/03/18 08:06 05/03/18 08:06 05/03/18 09:51 05/03/18 08:06 Intake and Output: 05/03/18 05/03/18 06:59 18:59 Intake Total 1920 Output Total 600 Balance 1320 - Medications Medications: Current Medications Acetylcysteine (Acetylcysteine 20%) 4 ml IH BIDRESP [facility] Last Admin: 05/03/18 07:33 Dose: 4 ml Apixaban (Eliquis) 5 mg PO BID [facility]; Protocol Last Admin: 05/03/18 09:51 Dose: 5 mg Benzonatate (Tessalon Perles) 100 mg PO TID PRN PRN Reason: Cough Last Admin: 04/29/18 21:44 Dose: 100 mg Budesonide (Pulmicort Respules) 0.5 mg IH [id number] [facility] Last Admin: 05/03/18 07:33 Dose: 0.5 mg Diltiazem HCl (Cardizem Cd) 120 mg PO DAILY [facility] Last Admin: 05/03/18 09:50 Dose: 120 mg Doxycycline Hyclate (Doryx) 100 mg PO Q12 [facility]; Protocol Last Admin: 05/03/18 09:50 Dose: 100 mg Guaifenesin/Dextromethorphan (Robitussin Dm) 5 ml PO Q4H PRN PRN Reason: Cough Last Admin: 04/29/18 21:44 Dose: 5 ml Sodium Chloride (Sodium Chloride 0.9%) 1,000 mls @ 40 mls/hr IV .Q24H [facility] Last Admin: 04/29/18 05:19 Dose: 40 mls/hr Meropenem (Merrem Iv 1 Gm Premix) 1 gm in 50 mls @ 100 mls/hr IVPB Q8 [facility]; Protocol Last Admin: 05/03/18 14:50 Dose: 100 mls/hr Levalbuterol HCl (Xopenex) 0.63 mg IH [id number] PRN PRN Reason: Shortness of Breath Last Admin: 05/02/18 17:34 Dose: 0.63 mg Levalbuterol HCl (Xopenex) 0.63 mg IH TIDRESP [facility] Last Admin: 05/03/18 13:35 Dose: Not Given Metolazone (Zaroxolyn) 2.5 mg PO MWF [facility] Last Admin: 05/02/18 09:51 Dose: 2.5 mg Melatonin [Melatonin (] 10 Mg (Home Med)) 10 mg PO HS [facility] Last Admin: 05/02/18 21:41 Dose: Not Given Nystatin (Nystatin Oral Susp) 5 ml PO QID [facility] Last Admin: 05/03/18 14:52 Dose: 5 ml Pantoprazole Sodium (Protonix Ec Tab) 40 mg PO 0600 [facility] Last Admin: 05/03/18 05:21 Dose: 40 mg Prednisone (Prednisone Tab) 10 mg PO 0800 [facility] Last Admin: 05/03/18 08:26 Dose: 10 mg Sotalol HCl (Betapace) 80 mg PO BID [facility] Last Admin: 05/03/18 09:51 Dose: 80 mg - Labs Labs: 04/29/18 05:30 04/29/18 05:30 - Constitutional Appears: Chronically Ill - Head Exam Head Exam: NORMAL INSPECTION - Neck Exam Neck Exam: absent: Meningismus - Respiratory Exam Respiratory Exam: Decreased Breath Sounds - Cardiovascular Exam Cardiovascular Exam: +S1, +S2 - GI/Abdominal Exam GI & Abdominal Exam: Soft. 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 Briggs
[2018-05-04] MEDS: MELATONIN 10 MG PO SCH (22:47)
[2018-05-04] MEDS ORDERED: Sodium Chloride 0.9% 1,000 ML IV SCH (22:53)
[2018-05-05] MEDS: guaiFENesin DM 100 mg-10 mg/5 ml UD PO PRN (04:09)
[2018-05-05] MEDS: Pantoprazole 40 mg EC Tab PO SCH (05:59)
[2018-05-05 07:07] LABS: BASO # 0.02 K/mm3 (0.0-2.0); BASO % 0.1 % (0.0-3.0); EOS # 0.1 (0.0-0.7); EOS % 0.6 % (1.5-5.0); GRAN # 12.09 (1.4-6.5); GRAN % 85.6 % (50.0-68.0); HEMOGLOBIN 10.8 g/dL (14.0-18.0); LYMPH # 1.4 (1.2-3.4); MEAN CELL VOLUME 92.2 fl (80.0-105.0); MEAN CORPUSCULAR HEMOGLOBIN 29.1 pg (25.0-35.0); MEAN CORPUSCULAR HGB CONC 31.6 g/dl (31.0-37.0); MEAN PLATELET VOLUME 9.6 fl (7.0-11.0); MONO # 0.5 (0.1-0.6); MONO % 3.7 % (1.0-6.0); RBC 3.71 10^6/uL (3.5-6.1); WHITE BLOOD COUNT 14.1 10^3/uL (4.5-11.0)
[2018-05-05 07:57] LABS: ALB/GLOB RATIO 0.8 (1.1-1.8); ALBUMIN 2.9 g/dL (3.0-4.8); ALT/SGPT 116 U/L (7-56); AST/SGOT 67 U/L (17-59); BLOOD UREA NITROGEN 28 mg/dL (7-21); CALCIUM 9.1 mg/dL (8.4-10.5); GFR NON-AFRICAN AMERICAN > 60
[2018-05-05] MEDS: Budesonide 0.5 mg/2 ml Inhal Susp UD IH SCH ×2 (08:24→20:53)
[2018-05-05] MEDS: Acetylcysteine 20% Inhal Soln (4ml) IH SCH ×2 (08:24→20:52)
[2018-05-05] MEDS: Levalbuterol 0.63 MG/3 ML Inhal Soln UD IH SCH ×3 (08:24→20:54)
[2018-05-05] MEDS: Nystatin 100,000 Units/ml Oral Susp 5 ml UD PO SCH ×4 (10:02→21:41)
[2018-05-05] MEDS: diltiaZEM 120 mg/24 Hours CD Cap PO SCH (10:02)
[2018-05-05] MEDS: Levalbuterol 0.63 MG/3 ML Inhal Soln UD IH PRN (14:30)
--- NOTE | 2018-05-05 14:34 | CP.PCM.PN ---
Subjective - Date & Time of Evaluation Date of Evaluation: 05/05/18 Time of Evaluation: 10:20 - Subjective Subjective: Not in distress, non-toxic, appetite is still not good, no fevers. Objective - Vital Signs/Intake and Output Vital Signs (last 24 hours): Temp Pulse Resp BP Pulse Ox 98.5 F 98 H 20 128/80 92 L 05/04/18 08:18 05/04/18 09:42 05/04/18 08:18 05/04/18 09:42 05/04/18 08:18 Intake and Output: 05/04/18 05/04/18 06:59 18:59 Intake Total 720 Output Total 240 Balance 480 - Medications Medications: Current Medications Acetaminophen (Tylenol 325mg Tab) 650 mg PO Q6H PRN PRN Reason: Pain, Mild (1-3) Acetylcysteine (Acetylcysteine 20%) 4 ml IH BIDRESP [facility] Last Admin: 05/04/18 07:57 Dose: Not Given Apixaban (Eliquis) 5 mg PO BID [facility]; Protocol Last Admin: 05/04/18 09:43 Dose: 5 mg Benzonatate (Tessalon Perles) 100 mg PO TID PRN PRN Reason: Cough Last Admin: 04/29/18 21:44 Dose: 100 mg Budesonide (Pulmicort Respules) 0.5 mg IH [id number] [facility] Last Admin: 05/04/18 07:57 Dose: Not Given Diltiazem HCl (Cardizem Cd) 120 mg PO DAILY [facility] Last Admin: 05/04/18 09:42 Dose: 120 mg Doxycycline Hyclate (Doryx) 100 mg PO Q12 [facility]; Protocol Last Admin: 05/04/18 09:42 Dose: 100 mg Guaifenesin/Dextromethorphan (Robitussin Dm) 5 ml PO Q4H PRN PRN Reason: Cough Last Admin: 05/04/18 04:02 Dose: 5 ml Sodium Chloride (Sodium Chloride 0.9%) 1,000 mls @ 40 mls/hr IV .Q24H [facility] Last Admin: 04/29/18 05:19 Dose: 40 mls/hr Meropenem (Merrem Iv 1 Gm Premix) 1 gm in 50 mls @ 100 mls/hr IVPB Q8 [facility]; Protocol Last Admin: 05/04/18 15:30 Dose: 100 mls/hr Levalbuterol HCl (Xopenex) 0.63 mg IH [id number] PRN PRN Reason: Shortness of Breath Last Admin: 05/04/18 02:13 Dose: 0.63 mg Levalbuterol HCl (Xopenex) 0.63 mg IH TIDRESP [facility] Last Admin: 05/04/18 13:37 Dose: Not Given Metolazone (Zaroxolyn) 2.5 mg PO MWF [facility] Last Admin: 05/04/18 09:45 Dose: 2.5 mg Melatonin [Melatonin (] 10 Mg (Home Med)) 10 mg PO HS [facility] Last Admin: 05/03/18 21:11 Dose: Not Given Nystatin (Nystatin Oral Susp) 5 ml PO QID [facility] Last Admin: 05/04/18 15:30 Dose: 5 ml Pantoprazole Sodium (Protonix Ec Tab) 40 mg PO 0600 [facility] Last Admin: 05/04/18 05:42 Dose: 40 mg Prednisone (Prednisone Tab) 10 mg PO 0800 [facility] Last Admin: 05/04/18 09:45 Dose: 10 mg Sotalol HCl (Betapace) 80 mg PO BID [facility] Last Admin: 05/04/18 09:42 Dose: 80 mg Tramadol HCl (Ultram) 50 mg PO Q8H PRN PRN Reason: Pain, moderate (4-7) - Labs Labs: 05/04/18 05:45 05/04/18 05:45 - Constitutional Appears: Chronically Ill - Head Exam Head Exam: NORMAL INSPECTION - Respiratory Exam Respiratory Exam: Decreased Breath Sounds - Cardiovascular Exam Cardiovascular Exam: +S1, +S2 - GI/Abdominal Exam GI & Abdominal Exam: Soft. 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 Briggs previously
[2018-05-05] MEDS ORDERED: Etomidate 20 mg/10ml Inj IVP STA (15:31)
--- NOTE | 2018-05-05 15:37 | RAD ---
Date of service: 05/05/2018 HISTORY: SOB COMPARISON: 04/26/2018 FINDINGS: LUNGS: Extensive bilateral perihilar opacity suspicious for bilateral pneumonia. Rule out pulmonary edema. This represents interval change from the prior examination. Please note that the lung apices are partially obscured by the patient's mandible. PLEURA: No significant pleural effusion identified, no pneumothorax apparent. CARDIOVASCULAR: No aortic atherosclerotic calcification present. Normal cardiac size. No congestive change. Right central venous infusion port. OSSEOUS STRUCTURES: No significant abnormalities. VISUALIZED UPPER ABDOMEN: Normal. OTHER FINDINGS: None. IMPRESSION: Bilateral perihilar opacities. Possible bilateral pneumonia versus pulmonary edema.
[2018-05-05] MEDS: Propofol 10 mg/ml 1,000 MG/100 ML VIAL IV PRN (15:40)
--- NOTE | 2018-05-05 15:45 | PCM.RRT ---
COM[employer]ER [employer]LINER Nurse Assessment - Situation Date: 05/05/18 Time COMPUTER TYPESETTER KEYLINER was called: 14:55 [employer]ER [employer]ER Responder Arrival Time: 15:00 [employer]ER [employer]TER [employer]LINER Location:: [address] [place] [address] Room Number: [id number] [employer] Reason for Call: Tachycardia, Respiratory Distress, O2 Saturation below 90% [employer]LINER Called By: RN - IV IV Inserted during COMPUTER TYPESETTER KEYLINER?: No - Respiratory Oxygen Delivery Method: Face Mask @% Oxygen Flow Rate: 10 Received Nebulizer Treatments:: No Was the Patient Ventilated with Bag/Mask 100% O2?: Yes Secretions Suctioned?: No Was the Patient Intubated?: No Was the Patient Placed on a Ventilator?: No - Medication Medications Administered During COMPUTER TYPESETTER KEYLINER: N/A - Diagnostic Test Ordered EKG: No Chest X-Ray: No CT Scan: No CPR started during COMPUTER TYPESETTER KEYLINER?: No - Vital Signs Vital Sign: Rapid Response Vital Sign Blood Pressure 153/78 Pulse Rate 100 Respiratory Rate 44 Temperature 98.1 F Oxygen Saturation 56 - Finger Stick Blood Glucose Finger Stick Blood Glucose: 256 - Time [employer]ER TYPESETTER KEYLINER Ended Time COMPUTER TYPESETTER KEYLINER Ended: 15:11 - Recommendations Notifications: Attending Physician, Family or Designated Caregiver I.Reason for COMPUTER TYPESETTER KEYLINER - A) Acute Change in Patient: (Select all that apply): Staff member or family is worried about patient (Patient in respiratory distress) Subjective: Rapid response was called on this 77 year old male with pertinent medical history of SmCLC. Patient was found to be hypoxic and in respiratory distress by RN. When we arrived, patient was still struggling to breathe on face mask. At this time, it was determined that patient needs to be intubated, sedated, and placed in the ICU. Plan - ICU Consult - Intubate - Sedation with Propofol drip - Respiratory Oxygen Delivery Method: Face Mask @% Oxygen Flow Rate: 10 - Constitutional Appears: In Acute Distress, Chronically Ill - Head Head Exam: ATRAUMATIC, NORMAL INSPECTION, NORMOCEPHALIC - Eyes Eye Exam: EOMI, Normal appearance, PERRL - Respiratory Exam Respiratory Exam: Decreased Breath Sounds, Rhonchi, Respiratory Distress - Cardiovascular Exam Cardiovascular Exam: Tachycardia, REGULAR RHYTHM - GI/Abdominal Exam GI & Abdominal Exam: Soft, Normal Bowel Sounds - Neurological Exam Neurological Exam: Alert, Awake, CN II-XII Intact, Normal Gait, Oriented x3 - Extremities Exam Extremities Exam: Full ROM, Normal Capillary Refill, Normal Inspection
[2018-05-05] MEDS ORDERED: Midazolam 2 MG/2 ML VIAL IVP ONE (15:58)
[2018-05-05] MEDS: Sodium Chloride 0.9% 100 ML IV SCH (16:06)
--- NOTE | 2018-05-05 16:06 | RAD ---
Date of service: 05/05/2018 HISTORY: s;p intubation COMPARISON: 05/05/2018 at 2:46 p.m. FINDINGS: LUNGS: Persistent extensive bilateral perihilar opacity with probable superimposed interstitial infiltrates bilaterally, suspicious for pulmonary edema. Rule out bilateral pneumonia. PLEURA: No significant pleural effusion identified, no pneumothorax apparent. CARDIOVASCULAR: No aortic atherosclerotic calcification present. Normal cardiac size. Possible congestive change bilaterally. New endotracheal tube with its tip approximately 3.6 cm above the tracheal inga. Right central venous infusion port again noted. OSSEOUS STRUCTURES: No significant abnormalities. VISUALIZED UPPER ABDOMEN: Normal. OTHER FINDINGS: None. IMPRESSION: Persistent extensive bilateral perihilar opacities with superimposed interstitial infiltrates. Possible pulmonary edema, versus bilateral pneumonia. New endotracheal tube positioned approximately 3.6 cm above the tracheal inga.
[2018-05-05] MEDS: Vancomycin 1gm in NS 250ml 1 GM/250 ML BAG IVPB SCH (16:20)
[2018-05-05] MEDS: Meropenem IV 1 gm in NS 1 GM/50 ML BAG IVPB SCH ×2 (16:20→22:06)
--- NOTE | 2018-05-05 16:20 | CP.PCM.CON ---
History of Present Illness - History of Present Illness History of Present Illness: Brando Shweta PGY2 - ICU Consult Note for Dr. Gamez CC: Respiratory Distress HPI: Mr. Alvarenga is a 77 year old male with past medical history of small cell lung cancer stage 4 currently undergoing radiation and chemotherapy, COPD, atri al fibrillation, gastritis who was found to have increased respiratory effort on remote telemetry floor. Rapid response was called on patient for respiratory distress. Patient was transferred to ICU where he was intubated and sedated. Patient's hospital course: admitted on 04/27/2018 sepsis secondary to HCAP in the setting of stage IV lung CA. Patient was noted to be without fever, vomiting or diarrhea. Patient was noted to be lethargic at that time. MRI brain was conducted showing chronic white matter ischemic changes. Chest CT was performed showing multifocal pneumonia. ID was consulted and patient was placed on abx for HCAP. Past Patient History - Infectious Disease Hx of Infectious Diseases: None - Tetanus Immunizations Tetanus Immunization: Unknown - Past Social History Smoking Status: Former Smoker - CARDIAC Hx Cardiac Disorders: Yes - PULMONARY Hx Chronic Obstructive Pulmonary Disease (COPD): Yes - NEUROLOGICAL Hx Neurological Disorder: No - HEENT Hx HEENT Problems: Yes (wears eyeglasses) - RENAL Hx Chronic Kidney Disease: No - ENDOCRINE/METABOLIC Hx Endocrine Disorders: No - HEMATOLOGICAL/ONCOLOGICAL Hx Cancer: Yes (lungs, mets to liver; had chemotherapy) - INTEGUMENTARY Hx Dermatological Problems: No - MUSCULOSKELETAL/RHEUMATOLOGICAL Hx Musculoskeletal Disorders: Yes Hx Unsteady Gait: Yes - GASTROINTESTINAL Hx Gastroesophageal Reflux: Yes - GENITOURINARY/GYNECOLOGICAL Hx Genitourinary Disorders: No - PSYCHIATRIC Hx Psychophysiologic Disorder: No Hx Depression: No Hx Emotional Abuse: No Hx Physical Abuse: No - SURGICAL HISTORY Hx Amputation: No - ANESTHESIA Hx Anesthesia: No Hx Anesthesia Reactions: No Hx Malignant Hyperthermia: No Meds Allergies/Adverse Reactions: Allergies Allergy/AdvReac Type Severity Reaction Status Date / Time No Known Allergies Allergy Unverified 11/23/17 21:06 - Medications Medications: Current Medications Acetaminophen (Tylenol 325mg Tab) 650 mg PO Q6H PRN PRN Reason: Pain, Mild (1-3) Acetylcysteine (Acetylcysteine 20%) 4 ml IH BIDRESP ZARI Last Admin: 05/05/18 08:24 Dose: 4 ml Apixaban (Eliquis) 5 mg PO BID ZARI; Protocol Last Admin: 05/05/18 10:03 Dose: 5 mg Benzonatate (Tessalon Perles) 100 mg PO TID PRN PRN Reason: Cough Last Admin: 05/05/18 04:09 Dose: 100 mg Budesonide (Pulmicort Respules) 0.5 mg IH [id number] [facility] Last Admin: 05/05/18 08:24 Dose: 0.5 mg Diltiazem HCl (Cardizem Cd) 120 mg PO DAILY [facility] Last Admin: 05/05/18 10:02 Dose: 120 mg Guaifenesin/Dextromethorphan (Robitussin Dm) 5 ml PO Q4H PRN PRN Reason: Cough Last Admin: 05/05/18 04:09 Dose: 5 ml Meropenem (Merrem Iv 1 Gm Premix) 1 gm in 50 mls @ 100 mls/hr IVPB Q8 [facility]; Protocol Vancomycin HCl (Vancomycin 1gm) 1 gm in 250 mls @ 167 mls/hr IVPB Q12H [facility]; Protocol Propofol (Diprivan) 1,000 mg in 100 mls @ 2.15 mls/hr IV .Q24H PRN; Protocol PRN Reason: TITRATE PER MD ORDER Midazolam 100 mg/100ml in NS (Midazolam 100 Mg/100ml In Ns) 100 mg in 100 mls @ 1 mls/hr IV .Q24H PRN; Protocol PRN Reason: Sedation Sodium Chloride (Sodium Chloride 0.9%) 100 mls @ 100 mls/hr IV .Q1H [facility] Last Admin: 05/05/18 16:06 Dose: 100 mls/hr Levalbuterol HCl (Xopenex) 0.63 mg IH [id number] PRN PRN Reason: Shortness of Breath Last Admin: 05/05/18 14:30 Dose: 0.63 mg Levalbuterol HCl (Xopenex) 0.63 mg IH TIDRESP [facility] Last Admin: 05/05/18 13:47 Dose: 0.63 mg Metolazone (Zaroxolyn) 2.5 mg PO MWF [facility] Last Admin: 05/04/18 09:45 Dose: 2.5 mg Melatonin [Melatonin (] 10 Mg (Home Med)) 10 mg PO HS [facility] Last Admin: 05/04/18 22:47 Dose: Not Given Nystatin (Nystatin Oral Susp) 5 ml PO QID [facility] Last Admin: 05/05/18 14:52 Dose: Not Given Pantoprazole Sodium (Protonix Ec Tab) 40 mg PO 0600 [facility] Last Admin: 05/05/18 05:59 Dose: 40 mg Prednisone (Prednisone Tab) 10 mg PO 0800 [facility] Last Admin: 05/05/18 08:58 Dose: 10 mg Sotalol HCl (Betapace) 80 mg PO BID [facility] Last Admin: 05/05/18 10:02 Dose: 80 mg Tramadol HCl (Ultram) 50 mg PO Q8H PRN PRN Reason: Pain, moderate (4-7) Last Admin: 05/05/18 04:09 Dose: 50 mg Physical Exam - Constitutional Appears: In Acute Distress, Older Than Stated Age, Cachectic, Chronically Ill - Head Exam Head Exam: ATRAUMATIC, NORMAL INSPECTION, NORMOCEPHALIC - Eye Exam Eye Exam: EOMI, PERRL - ENT Exam ENT Exam: Mucous Membranes Moist - Neck Exam Neck exam: Positive for: Full Rom - Respiratory Exam Respiratory Exam: Accessory Muscle Use, Decreased Breath Sounds, Respiratory Distress - Cardiovascular Exam Cardiovascular Exam: Tachycardia, Irregular Rhythm, +S1, +S2 - GI/Abdominal Exam GI & Abdominal Exam: Normal Bowel Sounds, Soft. absent: Guarding, Rebound, Rigid - Extremities Exam Extremities exam: Negative for: calf tenderness, pedal edema, tenderness - Neurological Exam Additional comments: Prior to intubation and sedation Patient was alert and oriented Motor and sensory grossly normal Patient neuro exam was limited secondary to respiratory distress - Psychiatric Exam Psychiatric exam: Anxious - Skin Skin Exam: Dry, Intact Results - Vital Signs Recent Vital Signs: Last Vital Signs Temp 97.1 F L 05/05/18 06:00 Pulse 88 05/05/18 10:02 Resp 20 05/05/18 06:00 BP 122/81 05/05/18 10:02 Pulse Ox 90 L 05/05/18 06:00 - Labs Result Diagrams: 05/05/18 06:00 05/05/18 06:00 Labs: Laboratory Results - last 24 hr 05/05/18 05/05/18 06:00 06:00 WBC 14.1 H D RBC 3.71 Hgb 10.8 L Hct 34.2 L MCV 92.2 MCH 29.1 MCHC 31.6 RDW 17.0 H Plt Count 161 MPV 9.6 Gran % 85.6 H Lymph % (Auto) 10.0 L Dickey % (Auto) 3.7 Eos % (Auto) 0.6 L Baso % (Auto) 0.1 Gran # 12.09 H Lymph # (Auto) 1.4 Dickey # (Auto) 0.5 Eos # (Auto) 0.1 Baso # (Auto) 0.02 Sodium 133 Potassium 3.8 Chloride 98 Carbon Dioxide 28 Anion Gap 10 BUN 28 H Creatinine 0.6 L Est GFR ( Amer) > 60 Est GFR (Non-Af Amer) > 60 Random Glucose 140 H Calcium 9.1 Total Bilirubin 0.6 AST 67 H ALT 116 H Alkaline Phosphatase 116 Total Protein 6.7 Albumin 2.9 L Globulin 3.8 Albumin/Globulin Ratio 0.8 L Assessment & Plan - Assessment and Plan (Free Text) Assessment: 77 year old male with past medical history of small cell lung cancer stage 4 currently undergoing radiation and chemotherapy, COPD, atrial fibrillation, gastritis who was found to have increased respiratory effort on remote telemetry floor. Patient was brought to ICU after rapid response was called for respiratory distress where he was intubated and sedated. 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 Cardio: Atrial Fibrillation - rate controlled and anticoagulated -Continue with eliquis 5mg BID, Cardizem 120 mg daily, Zaroxylyn 2.5mg MWF -Cardiology consulted and following Pulm: Respiratory distress, Hypoxic Respriatory Failure -Intubated and sedated -Head of bed 30 degrees -Weaning trial in the AM -Oral care as needed -Vent setting of 5/15/400/100% -CXR showing appropriate placement of ET tube -Repeat CXR in AM, check ABG HCAP -Chest CT w/out contrast (05/05/18):multifocal pneumonia, lytic and sclerotic metastatic lesions throughout the spine unchanged, moderate cardiomegaly -Continue vancomycin, merrem as per ID -ID consulted and following COPD exacerbation -Continue xopenex Q6HPRN, TID, Pulmicort Q12, prednisone 10mg Daily, tessalon pearles prn -Pulmonary with Dr. 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 Bullard is consulted and following DVT ppx -Eliquis 5mg BID ID: HCAP -Continue abx as per ID -ID consulted and following -Procal pending Patient seen, case and plan discussed with attending, Dr. Gamez
[2018-05-05] MEDS: Midazolam 100 mg/100ml in NS 100 MG/100 ML SOL IV PRN (16:21)
--- NOTE | 2018-05-05 16:58 | PCM.PROC ---
Procedures Attestation:: I certify that I have explained the specified Operation(s) or Procedure(s), risks, benefits and reasonable alternatives to the Patient and/or other person responsible. The opportunity was given to ask questions and all questions answered - Intubation Time Out Performed: Yes Sedative: Versed Mg Given: 2 mg IV Laryngoscope: Sebastian ET Tube Size: 7.5 ET Tube Uncuffed: No ET Tube Secured at Depth: 23 ET Tube Secured Locarion: Lips ET Tube Placement Confirmation: Visualized Passing Through Cords, Breath Sounds Equal Bilaterally, No Breath Sounds Over Epigastrum, Confirmation w/Capnometry Patient Tolerated Procedure: Well Procedure Immediate Complications: None
[2018-05-05] MEDS: MELATONIN 10 MG PO SCH (21:39)
--- NOTE | 2018-05-05 22:08 | PN ---
DATE OF VISIT: 05/05/2018 This is [facility] visit in the intensive care unit. For Dr. Bullard. 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 He had suffered from episodes of atrial fibrillation, history of pneumothorax, COPD, cachexia of malignancy, gastric ulcers, chronic cough, and failure to thrive. He was hospitalized approximately 8 days prior for mental status change with exacerbation of COPD and has waxed and waned with modest improvement with the patient then recommended for TCU for reconditioning as of yesterday as per his clinical status as it was modestly improved. However, the patient has not been out of bed since admission due to the patient's complaint of tiredness. With this, he was recommended for discharge home with maximal assist as per Social Service's recommendations; however, the patient lives with his , and she is unable to care for him despite maximal assist at home. He was then recommended for subacute rehab; however, the refused this alternative, and his son was notified with the patient continuing his medical care in the hospital until a transfer to a subacute rehab could be facilitated. However, in the interim, the patient developed acute shortness of breath. After being seen by his spool sorter, Dr. Yi, 20 minutes prior with a nebulizer treatment given, the patient then became tachypneic with severe dyspnea. He was then evaluated by Dr. Eric Gamez, standards analyst, who recommended immediate intubation, which was then done in the intensive care unit. He is, at present, now sedated, intubated, and resting comfortably. Afterwards, I spoke to the patient's son, Raad, telephone number [phone], regarding the events that had transpired with the son and his mother on their way now to visit their father and in the intensive care unit. OBJECTIVE/PHYSICAL EXAMINATION: VITAL SIGNS: Temperature 97.1, pulse 100, respirations with ventilation at this time intubated, blood pressure 93/58 with a pulse ox of 100. GENERAL: He appears cachectic and withdrawn at 5 feet 9 inches tall with a weight of 158 pounds. HEENT: Temples are sunken. He is intubated and sedated. NECK: No nodes. HEART: Tachy rate, regular rhythm. LUNGS: Crackles bilaterally with occasional rhonchi. ABDOMEN: Scaphoid, soft. EXTREMITIES: No edema at this time. SKIN: Warm and dry. NEUROLOGIC: He is sedated; however, prior to this, he was awake and alert with moderate respiratory distress, dyspnea complained of. LABORATORY DATA: The patient's labs were done. White blood cell count this morning of 14.1, hemoglobin 10.8, hematocrit of 34.2, platelet count of 161,000 with a metabolic panel showing a BUN of 28, creatinine 0.6, nonfasting glucose 140. AST of 67, ALT of 116. The patient had a chest x-ray done earlier today prior to his intubation showing bilateral perihilar opacities, possible bilateral pneumonia versus pulmonary edema with a repeat chest x-ray showing persistent extensive bilateral perihilar opacities with superimposed interstitial infiltrates, possible pulmonary edema versus bilateral pneumonia, new endotracheal tube positioned approximately 3.6 cm above the tracheal inga. The patient's EKG was done and it has not been read with a preliminary report of atrial fibrillation, rate controlled. ASSESSMENT: For this patient is that of acute respiratory distress, hypoxic respiratory failure with the patient now intubated and sedated, with good placement of endotracheal tube. The patient did have a CT scan of his chest as reported with a rapid response report; however, this is not available in the computer system. The report reportedly from 05/05/2018 shows multifocal pneumonia, lytic and sclerotic metastatic lesions throughout the spine, unchanged; moderate cardiomegaly. The patient has a stage IV metastatic small cell cancer of the lung with metastasis to liver and bone with anticoagulation to continue. He also suffers from history of pneumothorax, cachexia of malignancy, gastric ulcer. This is a complex patient with a comprehensive medically necessary and appropriate visit carried out in excess of 90 minutes with the patient's family notified of ongoing events with the prognosis for this patient guarded. Erasmo Briggs MD
[2018-05-05 23:17] LABS: ARTERIAL BLOOD GAS HCO3 22.1 mmol/L (21-28); ARTERIAL BLOOD GAS HEMOGLOBIN 9.5 g/dL (11.7-17.4); ARTERIAL BLOOD GAS O2 CAPACITY 13.1 mL/dl (16-24); ARTERIAL BLOOD GAS O2 SAT 99.4 % (95-98); ARTERIAL BLOOD GAS PCO2 34 mm/Hg (35-45); ARTERIAL BLOOD GAS PH 7.42 (7.35-7.45); ARTERIAL BLOOD GAS TCO2 23.1 mmol.L (22-28)
--- NOTE | 2018-05-06 00:49 | PN ---
DATE: 05/05/2018 REFERRING PHYSICIAN: Dr. Alvarenga SUBJECTIVE: The patient is lying in the bed, head at 45 degree, sleepy, arousable, little tachypneic, had some cough, sputum production. No hemoptysis. No hematemesis. No hematuria. Diarrhea reported. OBJECTIVE: GENERAL: No acute distress. VITAL SIGNS: Temperature is 98, heart rate is 96, respiratory rate is 20, blood pressure 193/58, and pulse ox 91% on nasal cannula. HEENT: Moist mucous membrane. Mallampati score is 4. NECK: Supple. No JVD. LUNGS: Scattered rhonchi. HEART: S1 and S2. ABDOMEN: Soft and nontender. Nondistended. EXTREMITIES: No edema. NEUROLOGICAL: Sleepy and arousable. MEDICATIONS: The patient is on Mucomyst inhaled twice a day, Cardizem CD 120 mg daily, Eliquis 5 mg twice a day, meropenem 1 g IV every 8 hours, nystatin oral suspension four times a day, prednisone 10 mg daily, Protonix 40 mg daily, Pulmicort inhaler twice a day, Robitussin DM 5 mL every 4 hours p.r.n., IV fluid, Tylenol p.r.n., Tessalon p.r.n., Ultram 50 mg every 8 hours p.r.n., vancomycin IV every 12 hours, Zofran inhaled every 6 hours p.r.n., Zaroxolyn 2.5 mg Monday, Monday, and Monday inhaler. LABORATORY DATA: Shows hemoglobin 10.8, hematocrit 34.2, WBC 14,000, and platelet is 161. Sodium 133, potassium 3.8, chloride 98, bicarbonate 28, BUN 28, creatinine 0.6, glucose 140, calcium 9.1. AST 67, ALT 116. Albumin is 2.9. Microbiology, blood culture and nares culture have been negative. Chest x-ray was ordered, found to have bilateral perihilar opacities, bilateral pneumonia versus edema. IMPRESSION AND PLAN: Unresectable lung cancer requiring radiation and chemotherapy, chronic obstructive lung disease, paroxysmal atrial fibrillation, oral thrush. After my examination, apparently, the patient became more tachypneic, hypoxemic. Chest x-ray shows bilateral infiltrate. Rapid response was called. The patient was transferred to ICU and apparently was intubated, so continue antibiotics. We will increase Solu-Medrol, procalcitonin and proBNP will be ordered. Gastric prophylaxis and deep venous prophylaxis, broad-spectrum antibiotics covering associated organism. Followup lab, ABG, chest x-ray, CBC, and CMP in the morning. Thank you and we will follow with you. Aura Yi MD
--- NOTE | 2018-05-06 01:49 | CON ---
DATE: 05/05/2018 LABOR UTILIZATION SUPERINTENDENT CONSULT REQUESTING PHYSICIAN: Erasmo Briggs MD CHIEF COMPLAINT: The patient had respiratory failure and required intubation and has a history of lung CA. HISTORY OF PRESENT ILLNESS: Mr. Alvarenga is a 77-year-old male that was admitted for pneumonia and sepsis, was on telemetry and today developed respiratory failure, was transferred to the intensive care unit and intubated. The patient carries a diagnosis of metastatic lung disease, small cell stage IV. He is ventilator dependent, in respiratory failure. He has a history of COPD, atrial fibrillation and gastritis/peptic ulcer disease, and at this time, during this hospitalization, has bilateral pneumonia with sepsis. The patient also carries a diagnosis of GERD as well as anemia. At this time, he is on the ventilator, hemodynamically stable. PAST MEDICAL HISTORY: As above. ALLERGIES: HE HAS NO KNOWN ALLERGIES. CURRENT MEDICATIONS: Can be evaluated as per the nurse's intake form. SOCIAL HISTORY: He is a former smoker. No EtOH abuse. No drug abuse. FAMILY HISTORY: Noncontributory. REVIEW OF SYSTEMS: Unable to obtain; the patient is sedated, on the ventilator. PHYSICAL EXAMINATION: VITAL SIGNS: Note that his temperature is 98.1, his pulse is 100, respirations are 44, and his BP is 153/78. SKIN: Warm and dry. HEENT: Head: Atraumatic, normocephalic. Eyes: Reactive to light. Ears, nose, and throat: Seemed to be within normal limits. NECK: Supple. No JVD. No thyroid enlargement. No lymph nodes. HEART: Has regular rate and rhythm. Normal S1 and S2, but tachycardic. LUNGS: Reveal bilateral rhonchi. ABDOMEN: Soft, decreased bowel sounds. GENITALIA AND RECTAL: Deferred. MUSCULOSKELETAL: No joint deformities. EXTREMITIES: Reveal no significant edema. NEUROLOGICAL: The patient is sedated, on the ventilator. LABORATORY DATA: As far as his laboratories are concerned, his white count is 14.1, hemoglobin is 10.8, hematocrit 34.2 with platelets of 161,000. Sodium is 133, potassium 3.8, chloride 98, CO2 of 28 with a BUN of 28, creatinine of 0.6, and glucose of 140. As far as his chest x-ray is concerned, it does show some infiltrative processes bilaterally. This is an unofficial reading. IMPRESSION: As far as my impression, this patient has respiratory failure, requiring ventilator support. He has small cell lung cancer stage IV with metastatic involvement. The patient has bilateral pneumonia with sepsis as well as chronic obstructive pulmonary disease, atrial fibrillation, history of gastritis, gastroesophageal reflux disease, and is noticed to have anemia. PLAN: As far as our plan, we will continue with the ventilator support and decrease the FiO2 as tolerated. We will follow his chest x-ray and arterial blood gas closely. We will continue aggressive pulmonary toilet. The patient is on acetylcysteine, Betapace, Cardizem CD, Eliquis, meropenem, nystatin, prednisone, Propofol, Protonix, Pulmicort, cough meds, Ultram, vancomycin, Xopenex, and Zaroxolyn. We will continue to treat aggressively along with the other consultants and the primary care doctor. Eric Gamez MD
[2018-05-06] MEDS: Levalbuterol 0.63 MG/3 ML Inhal Soln UD IH PRN (03:09)
[2018-05-06] MEDS: Vancomycin 1gm in NS 250ml 1 GM/250 ML BAG IVPB SCH ×2 (04:00→14:18)
[2018-05-06] MEDS: Sodium Chloride 0.9% 100 ML IV SCH (05:17)
[2018-05-06] MEDS: Meropenem IV 1 gm in NS 1 GM/50 ML BAG IVPB SCH ×3 (05:21→21:30)
--- NOTE | 2018-05-06 06:11 | CARD ---
APPROVED REPORT Date of service: 05/05/2018 EKG Measurement Heart [id number] <Conclusion> Normal sinus rhythm Normal ECG
[2018-05-06 06:29] LABS: MEAN CELL VOLUME 92.4 fl (80.0-105.0); MEAN CORPUSCULAR HEMOGLOBIN 29.6 pg (25.0-35.0); MEAN PLATELET VOLUME 9.3 fl (7.0-11.0); RBC 3.04 10^6/uL (3.5-6.1); RED CELL DISTRIBUTION WIDTH 17.9 % (11.5-14.5); WHITE BLOOD COUNT 14.3 10^3/uL (4.5-11.0)
[2018-05-06] MEDS: Pantoprazole 40 mg EC Tab PO SCH (06:32)
[2018-05-06 06:38] LABS: ALB/GLOB RATIO 0.7 (1.1-1.8); ALBUMIN 2.5 g/dL (3.0-4.8); ALT/SGPT 79 U/L (7-56); AST/SGOT 81 U/L (17-59); BLOOD UREA NITROGEN 36 mg/dL (7-21); GFR NON-AFRICAN AMERICAN > 60
[2018-05-06 06:45] LABS: B-TYPE NATRIURETIC PEPTIDE 3240 pg/mL (0-450)
[2018-05-06] MEDS: Propofol 10 mg/ml 1,000 MG/100 ML VIAL IV PRN (07:07)
[2018-05-06] MEDS: Budesonide 0.5 mg/2 ml Inhal Susp UD IH SCH ×2 (07:38→20:15)
[2018-05-06] MEDS: Acetylcysteine 20% Inhal Soln (4ml) IH SCH ×2 (07:38→20:15)
[2018-05-06] MEDS: Levalbuterol 0.63 MG/3 ML Inhal Soln UD IH SCH ×3 (07:38→20:15)
[2018-05-06] MEDS: Nystatin 100,000 Units/ml Oral Susp 5 ml UD PO SCH ×4 (09:43→21:31)
[2018-05-06] MEDS: diltiaZEM 120 mg/24 Hours CD Cap PO SCH (09:51)
[2018-05-06 10:30] LABS: ARTERIAL BLOOD GAS HCO3 21.6 mmol/L (21-28); ARTERIAL BLOOD GAS HEMOGLOBIN 8.6 g/dL (11.7-17.4); ARTERIAL BLOOD GAS O2 CAPACITY 11.7 mL/dl (16-24); ARTERIAL BLOOD GAS O2 CONTENT 11.5 ML/dl (15-23); ARTERIAL BLOOD GAS PCO2 34 mm/Hg (35-45); ARTERIAL BLOOD GAS PH 7.41 (7.35-7.45); ARTERIAL BLOOD GAS TCO2 22.6 mmol.L (22-28)
--- NOTE | 2018-05-06 12:04 | CP.PCM.PN ---
Subjective - Date & Time of Evaluation Date of Evaluation: 05/06/18 Time of Evaluation: 11:50 - Subjective Subjective: Continues to be intubated and sedated, no fevers overnight, no diarrhea. Objective - Vital Signs/Intake and Output Vital Signs (last 24 hours): Temp Pulse Resp BP Pulse Ox 97.1 F L 88 20 122/81 90 L 05/05/18 06:00 05/05/18 10:02 05/05/18 06:00 05/05/18 10:02 05/05/18 06:00 Intake and Output: 05/05/18 05/05/18 06:59 18:59 Intake Total 480 Balance 480 - Medications Medications: Current Medications Acetaminophen (Tylenol 325mg Tab) 650 mg PO Q6H PRN PRN Reason: Pain, Mild (1-3) Acetylcysteine (Acetylcysteine 20%) 4 ml IH BIDRESP [facility] Last Admin: 05/05/18 08:24 Dose: 4 ml Apixaban (Eliquis) 5 mg PO BID [facility]; Protocol Last Admin: 05/05/18 10:03 Dose: 5 mg Benzonatate (Tessalon Perles) 100 mg PO TID PRN PRN Reason: Cough Last Admin: 05/05/18 04:09 Dose: 100 mg Budesonide (Pulmicort Respules) 0.5 mg IH [id number] [facility] Last Admin: 05/05/18 08:24 Dose: 0.5 mg Diltiazem HCl (Cardizem Cd) 120 mg PO DAILY [facility] Last Admin: 05/05/18 10:02 Dose: 120 mg Guaifenesin/Dextromethorphan (Robitussin Dm) 5 ml PO Q4H PRN PRN Reason: Cough Last Admin: 05/05/18 04:09 Dose: 5 ml Sodium Chloride (Sodium Chloride 0.9%) 1,000 mls @ 40 mls/hr IV .Q24H [facility] Stop: 05/10/18 22:54 Last Admin: 05/04/18 22:56 Dose: 40 mls/hr Levalbuterol HCl (Xopenex) 0.63 mg IH [id number] PRN PRN Reason: Shortness of Breath Last Admin: 05/04/18 02:13 Dose: 0.63 mg Levalbuterol HCl (Xopenex) 0.63 mg IH TIDRESP [facility] Last Admin: 05/05/18 13:47 Dose: 0.63 mg Metolazone (Zaroxolyn) 2.5 mg PO MWF [facility] Last Admin: 05/04/18 09:45 Dose: 2.5 mg Melatonin [Melatonin (] 10 Mg (Home Med)) 10 mg PO HS [facility] Last Admin: 05/04/18 22:47 Dose: Not Given Nystatin (Nystatin Oral Susp) 5 ml PO QID [facility] Last Admin: 05/05/18 10:02 Dose: 5 ml Pantoprazole Sodium (Protonix Ec Tab) 40 mg PO 0600 [facility] Last Admin: 05/05/18 05:59 Dose: 40 mg Prednisone (Prednisone Tab) 10 mg PO 0800 [facility] Last Admin: 05/05/18 08:58 Dose: 10 mg Sotalol HCl (Betapace) 80 mg PO BID [facility] Last Admin: 05/05/18 10:02 Dose: 80 mg Tramadol HCl (Ultram) 50 mg PO Q8H PRN PRN Reason: Pain, moderate (4-7) Last Admin: 05/05/18 04:09 Dose: 50 mg - Labs Labs: 05/05/18 06:00 05/05/18 06:00 - Constitutional Appears: Chronically Ill, Other (intubated and sedated) - Head Exam Head Exam: NORMAL INSPECTION - ENT Exam Additional comments: ET tube in place - Respiratory Exam Respiratory Exam: Decreased Breath Sounds - Cardiovascular Exam Cardiovascular Exam: +S1, +S2 - GI/Abdominal Exam GI & Abdominal Exam: Soft. absent: Tenderness Assessment and Plan - Assessment and Plan (Free Text) Plan: Assessment new onset hypoxic respiratory failure, now intubated, with SIRS, R/O severe sepsis from hospital-acquired pneumonia on top of worsening lung cancer S/P sepsis due to multifocal HCAP in this patient with stage 4 lung cancer, S/P confusion consider toxic-metabolic encephalopathy small cell lung cancer stage 4 on radiation and chemotherapy COPD atrial fibrillation gastritis Plan we have put the patient on Vancomycin and Merrem since yesterday pending blood, sputum cx, PCT; reviewed CXR which continues to show bilateral infiltrates overall prognosis is poor discussed with Dr. Briggs
--- NOTE | 2018-05-06 12:13 | RAD ---
Date of service: 05/06/2018 PROCEDURE: CHEST RADIOGRAPH, 1 VIEW HISTORY: res, fail COMPARISON: 05/05/2018 FINDINGS: LUNGS: Extensive bilateral pulmonary opacity with possible underlying interstitial infiltrate superimposed. Possible pulmonary edema versus bilateral pneumonia. Correlate clinically. PLEURA: No pneumothorax or pleural fluid seen. CARDIOVASCULAR: No aortic atherosclerotic calcification present. ET tube, NG tube and right central venous infusion port are unchanged. OSSEOUS STRUCTURES: No significant abnormalities. VISUALIZED UPPER ABDOMEN: Normal. OTHER FINDINGS: None. IMPRESSION: Extensive bilateral pulmonary opacity. No significant change.
--- NOTE | 2018-05-06 12:30 | RAD ---
Date of service: 05/05/2018 HISTORY: OG tube placement eval COMPARISON: 05/05/2018 at 3:26 p.m. FINDINGS: LUNGS: Extensive bilateral pulmonary opacity, predominantly perihilar. Possible underlying reticular interstitial infiltrate. No significant interval change from prior examination. PLEURA: No significant pleural effusion identified, no pneumothorax apparent. CARDIOVASCULAR: No aortic atherosclerotic calcification present. Normal cardiac size. Possible congestive change. ET tube, NG tube and right IJ central venous port are unchanged. OSSEOUS STRUCTURES: No significant abnormalities. VISUALIZED UPPER ABDOMEN: Normal. OTHER FINDINGS: None. IMPRESSION: No significant change possible pulmonary edema versus bilateral pneumonia
--- NOTE | 2018-05-06 13:30 | PN ---
DATE: 05/06/2018 CEO & BOARD DIRECTOR NOTE SUBJECTIVE: The patient is sedated on the ventilator with FIO2 of 100%, hemodynamically stable. No unusual events overnight. PHYSICAL EXAMINATION: VITAL SIGNS: His temperature is 98, pulse is 78, respirations are 20 and his BP is 106/72. SKIN: Warm and dry. HEENT: Head is atraumatic and normocephalic. Eyes reactive to light. Ears, nose and throat seem to be within normal limits. NECK: Supple. No JVD. No thyroid enlargement or lymph nodes. HEART: Has regular rate and rhythm. Normal S1 and S2. LUNGS: Reveal bilateral rhonchi. ABDOMEN: Soft. Decreased bowel sounds. GENITALIA: Deferred. RECTAL: Deferred. MUSCULOSKELETAL: No joint deformities. EXTREMITIES: Revealed trace lower extremity edema. NEUROLOGICALLY: He is sedated on the ventilator. LABORATORY DATA: White count is 14.3, hemoglobin is 9.0, hematocrit 28.1 with platelets of 99,000. Arterial blood gas reveals a pH of 7.41, pCO2 of 34 and pO2 of 75. His sodium is 134, potassium 4.0, chloride 102, CO2 of 26 with a BUN of 36, creatinine of 0.9 and a glucose of 126. The patient's BNP is 3240. Chest x-ray is pending. IMPRESSION: This patient has respiratory failure requiring ventilator support, has small-cell lung cancer stage IV with metastatic involvement. The patient has bilateral pneumonia with sepsis and chronic obstructive pulmonary disease, atrial fibrillation, gastritis, gastroesophageal reflux disease and anemia. The patient also has a thrombocytopenia. PLAN: We will continue with ventilator support and decrease the FIO2 as tolerated. Follow his chest x-ray and arterial blood gas closely. The patient will continue with aggressive pulmonary toilet. He is on acetylcysteine, Betapace, Cardizem CD, Eliquis, meropenem, nystatin, prednisone, propofol, Protonix, Pulmicort, cough medicine, vancomycin, Xopenex and Zaroxolyn. We will continue to treat aggressively along with the other consultants and the primary care doctor. Eric Gamez MD [facility] # [id number]
[2018-05-06] MEDS: Morphine 2 mg/ml ISec IVP PRN (15:56)
--- NOTE | 2018-05-06 19:08 | PN ---
DATE: 05/06/2018 SUBJECTIVE: The patient had rapid responsive, required intubation, transferred to the ICU and I was notified because of elevated troponin of 10.9 according to the path MD who are at the bedside. The patient had no prior history of coronary artery disease or coronary intervention in the past. The patient is known to have metastatic lung CA with both liver and bony metastasis according to the ophthalmic medical technologist. The patient is receiving chemotherapy and had received radiation therapy in the recent past. The most recent brain MRI done 90 days ago revealed no brain metastasis. OBJECTIVE: VITAL SIGNS: Blood pressure 87/54, heart rate 78, temperature 98.2. HEENT: Pale conjunctivae. CHEST: Diffuse bilateral rhonchi. HEART: S1 and S2 regular. EXTREMITIES: Trace leg edema. LABORATORY DATA: Today's hemoglobin and hematocrit 9 and 28.1, white count 14.3, platelet count 99,000. SMA-7, sodium 134, potassium 4, chloride 102, CO2 26, glucose 126, BUN 36, creatinine 0.9. ProBNP is 3240. Today's chest x-ray revealed extensive bilateral pulmonary opacities. A recent chest CT scan on 04/27/2018 revealed multifocal in pneumonia, lytic and sclerotic metastatic lesion throughout the spine unchanged. EKG showed sinus rhythm with new anterior ischemic T-wave inversion and prolonged QT interval. ASSESSMENT: 1. Acute zaj-GE-vouyxelut myocardial infarction. 2. Rule out pulmonary infarction. 3. Unresectable lung cancer with spine metastasis. 4. History of paroxysmal atrial fibrillation. 5. Bilateral pneumonia. 6. Anemia and thrombocytopenia. RECOMMENDATIONS: Continue Betapace at 80 mg twice a day, Cardizem CD at 120 mg once a day, Eliquis 5 mg twice a day, IV meropenem at 1 g every 8 hours, IV vancomycin 1 g every 12 hours, Zaroxolyn 2.5 mg Monday, Monday, and Monday. Obtain PT, PTT, INR and stat D-dimer. Obtain venous Doppler of lower extremities. Repeat an echocardiographic study at the bedside. Overall prognosis is grave. The patient is not a candidate for invasive cardiac workup. Michael Goodwin MD [facility] # [id number]
[2018-05-06] MEDS ORDERED: Sodium Chloride 0.9% 1,000 ML IV SCH (20:42)
--- NOTE | 2018-05-06 20:44 | PN ---
DATE: 05/06/2018 This is [facility] visit in the intensive care unit. For Dr. Bullard. SUBJECTIVE: The patient is a 77-year-old male seen lying, intubated, sedated in the intensive care unit after developing acute respiratory failure yesterday with emergency intubation necessary. 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 At this time, the patient is in no acute distress with nursing staff reporting that he appears to ____ with possible pain component despite the patient being intubated and sedated. We will adjust this with small doses of narcotic analgesics as indicated. With this, the patient's family members are notified of changes as above with the patient continue to be a full code as per his and his family's request. OBJECTIVE/PHYSICAL EXAMINATION: VITAL SIGNS: Temperature of 98.2, pulse 78, respirations on ventilation, blood pressure 87/54 with oxygen saturation 99%. HEENT: Eyes are closed. The patient is sedated and intubated. NECK: No nodes. HEART: Regular rate. LUNGS: Scattered rhonchi. ABDOMEN: Soft and nontender. EXTREMITIES: No edema. SKIN: Warm and dry. NEUROLOGIC: Sedated, intubated. LABORATORY DATA: The patient's labs were done. White blood cell count of 14.3, hemoglobin 9, hematocrit of 28.1, platelet count of 99. Metabolic panel showing a BUN of 36, calcium of 8. AST of 81, ALT of 79 with a brain natriuretic peptide of 3240. Procalcitonin 0.55. It should be noted that a troponin level was now added to his labs from this morning and is noted to be of 10.9. The patient had a chest x-ray done this morning showed extensive bilateral pulmonary opacity, no significant change with an EKG done with the reading pending. ASSESSMENT: For this patient is that of acute respiratory failure, status post intubation, unresectable stage IV neuroendocrine small cell cancer of the lung with metastasis to the liver and T7, history of pneumothorax, abnormal troponin, rule out acute myocardial infraction, cachexia, malignancy, history of gastric ulcer, chronic obstructive pulmonary disease. PLAN: For this patient is to continue intensive care protocols as per Dr. Gamez. We asked for a reconsult with Dr. Orozco, Cardiology for his abnormal troponins with continuation of his present medical regimen as per Dr. Yi, Pulmonology. This is a complex patient with a comprehensive medically necessary and appropriate visit carried out in excess of 45 minutes with the patient's case discussed with consultants and also with antibiotics restarted as per Dr. Urrutia, Infectious Disease. Prognosis for this patient is guarded with consideration for [id number] and hospice again to be discussed with the patient's family members, son and his , who still request full coded in most recent discussion. Erasmo Briggs MD
[2018-05-06] MEDS: MELATONIN 10 MG PO SCH (21:31)
--- NOTE | 2018-05-06 23:37 | PN ---
DATE: 05/06/2018 PULMONARY CRITICAL CARE PROGRESS NOTE REFERRING PHYSICIAN: Lamont Bullard MD/DELFINO SUBJECTIVE: Intubated and sedated, requiring high oxygen concentration, has small amount of ET tube secretion. No hemoptysis, hematemesis, hematuria or diarrhea. Swelling reported. OBJECTIVE: GENERAL: In no acute distress. VITAL SIGNS: Temperature is 98, heart rate 77, respiratory rate is 18, blood pressure 85/61, pulse ox 99% or 100% oxygen. HEENT: Moist mucous membrane. ET tube, no secretion. NECK: Supple. No JVD. LUNGS: Have scattered rhonchi, overall fair airflow. HEART: S1, S2. ABDOMEN: Soft, nontender, nondistended. EXTREMITIES: There is no edema. NEUROLOGIC: Intubated and sedated. MEDICATIONS: He is on Mucomyst inhaled twice a day, sotalol 80 mg twice a day, Cardizem 120 mg daily, he is on IV Diprivan, melatonin 10 mg daily, meropenem 1 g IV every eight hours, morphine 2 mg every 4 hours p.r.n., nystatin orally four times a day, prednisone 40 mg twice a day, Protonix 40 mg daily, Pulmicort inhaled twice a day, Robitussin DM every 4 hours p.r.n., IV fluid normal saline 100 mL/hour, Tessalon Perles three times a day, Ultram 50 mg every eight hours p.r.n., vancomycin 1 g every 12 hours, Xopenex inhaled every 8 hours, Zaroxolyn 2.5 mg Monday, Monday, Monday. LABORATORY DATA: Shows hemoglobin 9, hematocrit 28.1, WBC 14, platelet is 99. Blood gases this morning showed pH of 7.41, pCO2 of 34, O2 of 75, this is on 100% oxygen on ventilator. Sodium 134, potassium 4, chloride 102, bicarbonate 26, BUN 36, creatinine 0.9, glucose 126, calcium 8, AST 81, ALT 79, alk phos is 113, troponin 10.9. ProBNP 3240. Albumin is 2.5, procalcitonin 0.55. Chest x-ray done this morning shows extensive bilateral pulmonary opacities. IMPRESSION AND PLAN: Unresectable lung cancer requiring radiation and chemotherapy, chronic obstructive lung disease, paroxysmal atrial fibrillation, thrush, respiratory failure on ventilator, myocardial infarction. Case discussed with Dr. Erasmo Briggs from Oncology services. Spoke to nursing staff. Continue present vent setting. We will request cardiology consult. Continue steroids. We will change prednisone to Solu-Medrol intravenous. Continue antibiotics. May need to repeat echocardiogram, been on anticoagulation. We will follow venous Doppler. Critical care time spent more than 35 minutes. Follow up arterial blood gas, chest x-ray, complete blood count, comprehensive metabolic panel in the morning. Thank you and we will follow with you. Aura Yi MD
[2018-05-07] MEDS: Morphine 2 mg/ml ISec IVP PRN (02:25)
[2018-05-07] MEDS: Levalbuterol 0.63 MG/3 ML Inhal Soln UD IH PRN (02:50)
[2018-05-07] MEDS: Vancomycin 1gm in NS 250ml 1 GM/250 ML BAG IVPB SCH ×2 (03:06→16:07)
[2018-05-07] MEDS: Meropenem IV 1 gm in NS 1 GM/50 ML BAG IVPB SCH ×3 (05:36→22:17)
[2018-05-07] MEDS: Pantoprazole 40 mg EC Tab PO SCH (05:38)
[2018-05-07 05:50] LABS: ARTERIAL BLOOD GAS HCO3 21.3 mmol/L (21-28); ARTERIAL BLOOD GAS HEMOGLOBIN 8.8 g/dL (11.7-17.4); ARTERIAL BLOOD GAS O2 CONTENT 10.4 ML/dl (15-23); ARTERIAL BLOOD GAS O2 SAT 86.8 % (95-98); ARTERIAL BLOOD GAS PCO2 36 mm/Hg (35-45); ARTERIAL BLOOD GAS PH 7.38 (7.35-7.45); ARTERIAL BLOOD GAS TCO2 22.4 mmol.L (22-28)
[2018-05-07 06:49] LABS: GRAN # 14.57 (1.4-6.5); GRAN % 94.2 % (50.0-68.0); HEMOGLOBIN 9.3 g/dL (14.0-18.0); LYMPH # 0.5 (1.2-3.4); LYMPH % 3.3 % (22.0-35.0); MEAN CELL VOLUME 91.6 fl (80.0-105.0); MEAN CORPUSCULAR HEMOGLOBIN 29.1 pg (25.0-35.0); MEAN CORPUSCULAR HGB CONC 31.7 g/dl (31.0-37.0); MEAN PLATELET VOLUME 10.6 fl (7.0-11.0); MONO # 0.4 (0.1-0.6); MONO % 2.5 % (1.0-6.0); PLATELET COUNT 98 10^3/uL (120.0-450.0); RED CELL DISTRIBUTION WIDTH 17.7 % (11.5-14.5); WHITE BLOOD COUNT 15.5 10^3/uL (4.5-11.0)
[2018-05-07 06:56] LABS: ALB/GLOB RATIO 0.7 (1.1-1.8); ALBUMIN 2.4 g/dL (3.0-4.8); ALT/SGPT 66 U/L (7-56); AST/SGOT 89 U/L (17-59); BLOOD UREA NITROGEN 25 mg/dL (7-21); CALCIUM 7.3 mg/dL (8.4-10.5); GFR NON-AFRICAN AMERICAN > 60
[2018-05-07 07:10] LABS: INR 2.2; PARTIAL THROMBOPLASTIN TIME 25.5 Seconds (25.1-36.5); PROTHROMBIN TIME 25.7 SECONDS (9.4-12.5)
--- NOTE | 2018-05-07 07:46 | CARD ---
APPROVED REPORT Date of service: 05/06/2018 EKG Measurement Heart [id number] <Conclusion> Sinus rhythm with premature supraventricular complexes ST & T wave abnormality, consider anterolateral ischemia Prolonged QT Abnormal ECG
[2018-05-07] MEDS: Budesonide 0.5 mg/2 ml Inhal Susp UD IH SCH ×2 (07:57→20:30)
[2018-05-07] MEDS: Levalbuterol 0.63 MG/3 ML Inhal Soln UD IH SCH ×3 (07:57→20:30)
[2018-05-07] MEDS: Acetylcysteine 20% Inhal Soln (4ml) IH SCH ×2 (07:57→20:30)
[2018-05-07 08:10] LABS: TROPONIN I 6.33 ng/mL
[2018-05-07 08:20] LABS: BAND 1 % (0-2); MONOCYTE 2 % (1.0-6.0); NEUTROPHIL 97 % (50.0-70.0); PLATELET ESTIMATE LOW (NORMAL)
--- NOTE | 2018-05-07 08:59 | US ---
HISTORY: Leg pain and swelling. Evaluate for DVT PHYSICIAN(S): Bryan Stokes MD. TECHNIQUE: Duplex sonography and color-flow Doppler with graded compression were used to evaluate the deep venous systems of both lower extremities. FINDINGS: The visualized deep venous systems of both lower extremities are sonographically normal and compressible. Normal wave forms and augmentation are seen. There is no sonographic evidence for deep venous thrombosis in the visualized segments of both lower extremities. IMPRESSION: No sonographic evidence for deep venous thrombosis in the visualized segments of both lower extremities.
[2018-05-07] MEDS ORDERED: Potassium Chloride 20 mEq/15 ml LIQ UD PO STA (09:23)
--- NOTE | 2018-05-07 10:31 | RAD ---
Date of service: 05/07/2018 HISTORY: res. fail COMPARISON: 05/06/2018 FINDINGS: LUNGS: Diffuse alveolar infiltrate unchanged. Endotracheal tube and nasogastric tube unchanged PLEURA: No significant pleural effusion identified, no pneumothorax apparent. CARDIOVASCULAR: No aortic atherosclerotic calcification present. Normal cardiac size. No pulmonary vascular congestion. OSSEOUS STRUCTURES: No significant abnormalities. VISUALIZED UPPER ABDOMEN: Normal. OTHER FINDINGS: None. IMPRESSION: Diffuse alveolar infiltrate unchanged. Endotracheal tube and nasogastric tube unchanged
--- NOTE | 2018-05-07 11:12 | CP.PCM.PN ---
Subjective - Date & Time of Evaluation Date of Evaluation: 05/07/18 Time of Evaluation: 10:50 - Subjective Subjective: Still intubated and sedated, no fevers overnight, no diarrhea. Objective - Vital Signs/Intake and Output Vital Signs (last 24 hours): Temp Pulse Resp BP Pulse Ox 98.2 F 81 20 87/54 L 99 05/05/18 22:00 05/06/18 10:29 05/05/18 06:00 05/06/18 10:30 05/06/18 10:29 Intake and Output: 05/06/18 05/06/18 06:59 18:59 Intake Total 1080 136.0 Output Total 350 Balance 730 136.0 - Medications Medications: Current Medications Acetaminophen (Tylenol 325mg Tab) 650 mg PO Q6H PRN PRN Reason: Pain, Mild (1-3) Acetylcysteine (Acetylcysteine 20%) 4 ml IH BIDRESP ZARI Last Admin: 05/06/18 07:38 Dose: 4 ml Apixaban (Eliquis) 5 mg PO BID ZARI; Protocol Last Admin: 05/06/18 09:51 Dose: 5 mg Benzonatate (Tessalon Perles) 100 mg PO TID PRN PRN Reason: Cough Last Admin: 05/05/18 04:09 Dose: 100 mg Budesonide (Pulmicort Respules) 0.5 mg IH [id number] ZARI Last Admin: 05/06/18 07:38 Dose: 0.5 mg Diltiazem HCl (Cardizem Cd) 120 mg PO DAILY ZARI Last Admin: 05/06/18 09:51 Dose: 120 mg Guaifenesin/Dextromethorphan (Robitussin Dm) 5 ml PO Q4H PRN PRN Reason: Cough Last Admin: 05/05/18 04:09 Dose: 5 ml Meropenem (Merrem Iv 1 Gm Premix) 1 gm in 50 mls @ 100 mls/hr IVPB Q8 ZARI; Protocol Last Admin: 05/06/18 05:21 Dose: 100 mls/hr Vancomycin HCl (Vancomycin 1gm) 1 gm in 250 mls @ 167 mls/hr IVPB Q12H ZARI; Protocol Last Admin: 05/06/18 04:00 Dose: 167 mls/hr Propofol (Diprivan) 1,000 mg in 100 mls @ 2.15 mls/hr IV .Q24H PRN; Protocol PRN Reason: TITRATE PER MD ORDER Last Titration: 05/06/18 09:13 Dose: 10 mcg/kg/min, 4.3 mls/hr Midazolam 100 mg/100ml in NS (Midazolam 100 Mg/100ml In Ns) 100 mg in 100 mls @ 1 mls/hr IV .Q24H PRN; Protocol PRN Reason: Sedation Last Titration: 05/06/18 09:14 Dose: 2 mg/hr, 2 mls/hr Sodium Chloride (Sodium Chloride 0.9%) 100 mls @ 100 mls/hr IV .Q1H [facility] Last Admin: 05/06/18 05:17 Dose: 100 mls/hr Levalbuterol HCl (Xopenex) 0.63 mg IH [id number] PRN PRN Reason: Shortness of Breath Last Admin: 05/06/18 03:09 Dose: 0.63 mg Levalbuterol HCl (Xopenex) 0.63 mg IH TIDRESP [facility] Last Admin: 05/06/18 07:38 Dose: 0.63 mg Metolazone (Zaroxolyn) 2.5 mg PO MWF [facility] Last Admin: 05/04/18 09:45 Dose: 2.5 mg Morphine Sulfate (Morphine) 2 mg IVP Q4H PRN PRN Reason: Pain, severe (8-10) Melatonin [Melatonin (] 10 Mg (Home Med)) 10 mg PO HS [facility] Last Admin: 05/05/18 21:39 Dose: Not Given Nystatin (Nystatin Oral Susp) 5 ml PO QID [facility] Last Admin: 05/06/18 09:43 Dose: Not Given Pantoprazole Sodium (Protonix Ec Tab) 40 mg PO 0600 [facility] Last Admin: 05/06/18 06:32 Dose: 40 mg Prednisone (Prednisone Tab) 40 mg PO Q12 [facility] Last Admin: 05/06/18 09:51 Dose: 40 mg Sotalol HCl (Betapace) 80 mg PO BID [facility] Last Admin: 05/06/18 09:51 Dose: 80 mg Tramadol HCl (Ultram) 50 mg PO Q8H PRN PRN Reason: Pain, moderate (4-7) Last Admin: 05/05/18 04:09 Dose: 50 mg - Labs Labs: 05/06/18 06:00 05/06/18 06:00 - Constitutional Appears: Chronically Ill, Other (intubated, sedated) - Head Exam Head Exam: NORMAL INSPECTION - ENT Exam Additional comments: ET tube in place - Respiratory Exam Respiratory Exam: Decreased Breath Sounds Additional comments: right anterior chest wall port in place - Cardiovascular Exam Cardiovascular Exam: +S1, +S2 - GI/Abdominal Exam GI & Abdominal Exam: Soft. 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 Briggs previously
[2018-05-07] MEDS: diltiaZEM 120 mg/24 Hours CD Cap PO SCH (11:16)
[2018-05-07] MEDS: Enoxaparin 60 mg Syringe SC SCH ×2 (11:20→22:16)
[2018-05-07] MEDS: MethylPREDNISolone 40 mg Vial IVP SCH ×2 (11:23→22:19)
[2018-05-07] MEDS: Nystatin 100,000 Units/ml Oral Susp 5 ml UD PO SCH ×4 (11:24→22:19)
[2018-05-07] MEDS ORDERED: Metoprolol 1 mg/ml Inj IVP STA (11:28)
[2018-05-07] MEDS ORDERED: Metoprolol 1 mg/ml Inj ONE (11:34)
[2018-05-07] MEDS: Nitroglycerin 2% Ointment Foilpak UD TOP SCH ×3 (12:12→22:18)
[2018-05-07 12:38] LABS: ARTERIAL BLOOD GAS HEMOGLOBIN 9.5 g/dL (11.7-17.4); ARTERIAL BLOOD GAS O2 CONTENT 12.2 ML/dl (15-23); ARTERIAL BLOOD GAS O2 SAT 93.8 % (95-98); ARTERIAL BLOOD GAS PCO2 39 mm/Hg (35-45); ARTERIAL BLOOD GAS PH 7.36 (7.35-7.45); ARTERIAL BLOOD GAS TCO2 23.2 mmol.L (22-28)
[2018-05-07] MEDS ORDERED: Digoxin 500 mcg/2ml (0.5 mg/2ml) Inj IVP STA (13:05)
--- NOTE | 2018-05-07 13:28 | CP.CCUPN ---
<Haley Mckeon - Last Filed: 05/07/18 13:21> CCU Subjective - Physician Review Subjective (Free Text): Haley Mckeon, PGY-1, ICU Progress Note for Dr. Aguilera Patient seen and evaluated at bedside. Patient is currently intubated and sedated with vent settings of 450/14/12/100%. CCU Objective - Vital Signs / Intake & Output Vital Signs (Last 4 hours): Vital Signs Pulse BP 05/07/18 12:48 145 H 101/60 05/07/18 11:35 150 H 105/73 05/07/18 11:18 120/70 05/07/18 11:16 150 H Intake and Output (Last 8hrs): Intake & Output 05/06/18 05/07/18 05/07/18 22:59 06:59 14:59 Intake Total 1247 1561 0 Output Total 600 700 Balance 647 861 0 Weight 148 lb 8 oz Intake: IV 1247 1501 0 Left Hand 1204 1240 Right Subclavian 250 Other 60 Output: Urine 600 700 Urethral (Yang) 600 700 Other: # Bowel Movements 0 - Physical Exam Physical Exam Limitations: Positive for: Other (intubated) Head: Positive for: Atraumatic, Normocephalic Pupils: Positive for: PERRL Conjunctiva: Positive for: Normal Mouth: Positive for: Moist Mucous Membranes Neck: Positive for: Normal Range of Motion Respiratory/Chest: Positive for: Clear to Auscultation, Good Air Exchange, Other (currently on ventilator). Negative for: Respiratory Distress, Accessory Muscle Use Cardiovascular: Positive for: Normal S1, S2, Irregular Rhythm, Tachycardic. Negative for: Murmurs Abdomen: Negative for: Tenderness, Distention, Peritoneal Signs Back: Positive for: Normal Inspection Upper Extremity: Positive for: Normal Inspection. Negative for: Cyanosis, Edema Lower Extremity: Positive for: Normal Inspection. Negative for: Edema Neurological: Positive for: CN II-XII Intact, Speech Normal, Other (intubated) Skin: Positive for: Warm, Dry, Normal Color, Other (R IJ central port noted). Negative for: Rashes Psychiatric: Positive for: Alert, Oriented x 3, Normal Insight, Normal Concentration - Medications Active Medications: Active Medications Generic Name Dose Route Start Last Admin Trade Name Freq PRN Reason Stop Dose Admin Acetaminophen 650 mg 05/04/18 09:27 Tylenol 325mg Tab PO Q6H PRN Pain, Mild (1-3) Acetylcysteine 4 ml 04/29/18 20:00 05/07/18 07:57 Acetylcysteine 20% IH 4 ml BIDRESP ZARI Administration Apixaban 5 mg 04/27/18 10:00 05/06/18 18:44 Eliquis PO 5 mg BID ZARI Administration Protocol Aspirin 300 mg 05/08/18 10:00 Aspirin Supp RC DAILY ZARI Benzonatate 100 mg 04/26/18 22:48 05/05/18 04:09 Tessalon Perles PO 100 mg TID PRN Administration Cough Budesonide 0.5 mg 04/27/18 20:00 05/07/18 07:57 Pulmicort Respules IH 0.5 mg [id number] ZARI Administration Diltiazem HCl 120 mg 04/27/18 10:00 05/07/18 11:16 Cardizem Cd PO Not Given DAILY ZARI Enoxaparin Sodium 60 mg 05/07/18 10:15 05/07/18 11:20 Lovenox SC 60 mg Q12H ZARI Administration Protocol Furosemide 40 mg 05/08/18 10:00 Lasix IV DAILY [facility] Guaifenesin/Dextromethorphan 5 ml 04/26/18 22:53 05/05/18 04:09 Robitussin Dm PO 5 ml Q4H PRN Administration Cough Meropenem 1 gm in 50 mls @ 100 mls/hr 05/05/18 15:15 05/07/18 05:36 Merrem Iv 1 Gm Premix IVPB 100 mls/hr Q8 ZARI Administration Protocol Vancomycin HCl 1 gm in 250 mls @ 167 mls/hr 05/05/18 15:15 05/07/18 03:06 Vancomycin 1gm IVPB 167 mls/hr Q12H ZARI Administration Protocol Propofol 1,000 mg in 100 mls @ 2.15 mls/hr 05/05/18 15:24 05/06/18 16:04 Diprivan IV 5 mcg/kg/min .Q24H PRN 2.15 mls/hr TITRATE PER MD ORDER Titration Protocol 5 MCG/KG/MIN Midazolam 100 mg/100ml in NS 100 mg in 100 mls @ 1 mls/hr 05/05/18 15:32 05/07/18 12:07 Midazolam 100 Mg/100ml In Ns IV 3 mg/hr .Q24H PRN 3 mls/hr Sedation Titration Protocol 1 MG/HR Sodium Chloride 1,000 mls @ 100 mls/hr 05/06/18 20:42 05/06/18 20:30 Sodium Chloride 0.9% IV 100 mls/hr .Q10H ZARI Administration Insulin Human Lispro 0 units 05/07/18 11:30 Humalog Med SC ACHS [facility] Protocol Levalbuterol HCl 0.63 mg 04/27/18 12:16 05/07/18 02:50 Xopenex IH 0.63 mg [id number] PRN Administration Shortness of Breath Levalbuterol HCl 0.63 mg 04/28/18 20:00 05/07/18 07:57 Xopenex IH 0.63 mg TIDRESP ZARI Administration Methylprednisolone 40 mg 05/07/18 10:15 05/07/18 11:23 Solu-Medrol IVP 40 mg Q12 ZARI Administration Morphine Sulfate 2 mg 05/06/18 12:03 05/07/18 02:25 Morphine IVP 2 mg Q4H PRN Administration Pain, severe (8-10) Nitroglycerin 0.5 ea 05/07/18 09:30 05/07/18 12:12 Nitro-Bid 2% Oint TOP Not Given Q6H [facility] Melatonin [Melatonin 10 mg 04/26/18 22:00 05/06/18 21:31 ] 10 Mg (Home Med) PO Not Given HS ZARI Nystatin 5 ml 05/01/18 14:00 05/07/18 11:24 Nystatin Oral Susp PO 5 ml QID ZARI Administration Pantoprazole Sodium 40 mg 05/02/18 21:00 05/07/18 05:38 Protonix Ec Tab PO 40 mg 0600 ZARI Administration Sotalol HCl 40 mg 05/07/18 18:00 05/07/18 12:41 Betapace PO 40 mg BID ZARI Administration Tramadol HCl 50 mg 05/04/18 09:27 05/05/18 04:09 Ultram PO 50 mg Q8H PRN Administration Pain, moderate (4-7) - Patient Studies Lab Studies: Microbiology Studies 05/05/18 16:00 Blood Culture - Preliminary Blood-Venous NO GROWTH AFTER 24 HOURS 05/05/18 15:30 Blood Culture - Preliminary Blood-Venous NO GROWTH AFTER 24 HOURS Lab Studies 05/07/18 05/07/18 05/07/18 Range/Units 12:25 06:30 06:00 WBC (4.5-11.0) 10^3/uL RBC (3.5-6.1) 10^6/uL Hgb (14.0-18.0) g/dL Hct (42.0-52.0) % MCV (80.0-105.0) fl MCH (25.0-35.0) pg MCHC (31.0-37.0) g/dl RDW (11.5-14.5) % Plt Count (120.0-450.0) 10^3/uL MPV (7.0-11.0) fl Gran % (50.0-68.0) % Lymph % (Auto) (22.0-35.0) % [place] % (Auto) (1.0-6.0) % Eos % (Auto) (1.5-5.0) % Baso % (Auto) (0.0-3.0) % Gran # (1.4-6.5) Lymph # (Auto) (1.2-3.4) [place] # (Auto) (0.1-0.6) Eos # (Auto) (0.0-0.7) Baso # (Auto) (0.0-2.0) K/mm3 Neutrophils % (Manual) (50.0-70.0) % Band Neutrophils % (0-2) % Lymphocytes % (Manual) Monocytes % (Manual) (1.0-6.0) % Platelet Evaluation (NORMAL) PT 25.7 H (9.4-12.5) SECONDS INR 2.20 APTT 25.5 (25.1-36.5) Seconds D-Dimer, Quantitative 6179 H (0-243) ng/mlDDU pCO2 39 (35-45) mm/Hg pO2 63.0 L (80-100) mm/Hg HCO3 22.0 (21-28) mmol/L ABG pH 7.36 (7.35-7.45) ABG Total CO2 23.2 (22-28) mmol.L ABG O2 Saturation 93.8 L (95-98) % ABG O2 Content 12.2 L (15-23) ML/dl ABG Base Excess -3.2 L (-2.0-3.0) mmol/L ABG Hemoglobin 9.5 L (11.7-17.4) g/dL ABG Carboxyhemoglobin 2.6 H (0.5-1.5) % POC ABG HHb (Measured) 6.0 H (0-5) % ABG Methemoglobin 0.6 (0.0-3.0) % ABG O2 Capacity 13.0 L (16-24) mL/dl Hgb O2 Saturation 90.9 L (95.0-98.0) % FiO2 100.0 % Sodium 135 (132-148) mmol/L Potassium 3.5 L (3.6-5.0) mmol/L Chloride 105 (98-107) mmol/L Carbon Dioxide 25 (21-33) mmol/L Anion Gap 8 L (10-20) BUN 25 H (7-21) mg/dL Creatinine 0.6 L (0.8-1.5) mg/dl Est GFR ( Amer) > 60 Est GFR (Non-Af Amer) > 60 Random Glucose 145 H (70-110) mg/dL Calcium 7.3 L (8.4-10.5) mg/dL Total Bilirubin 0.6 (0.2-1.3) mg/dL AST 89 H (17-59) U/L ALT 66 H (7-56) U/L Alkaline Phosphatase 123 (38-126) U/L Troponin I 6.33 H* D ng/mL Total Protein 5.8 (5.8-8.3) g/dL Albumin 2.4 L (3.0-4.8) g/dL Globulin 3.4 gm/dL Albumin/Globulin Ratio 0.7 L (1.1-1.8) 05/07/18 05/07/18 05/07/18 Range/Units 06:00 05:40 03:00 WBC 15.5 H (4.5-11.0) 10^3/uL RBC 3.20 L (3.5-6.1) 10^6/uL Hgb 9.3 L (14.0-18.0) g/dL Hct 29.3 L (42.0-52.0) % MCV 91.6 (80.0-105.0) fl MCH 29.1 (25.0-35.0) pg MCHC 31.7 (31.0-37.0) g/dl RDW 17.7 H (11.5-14.5) % Plt Count 98 L (120.0-450.0) 10^3/uL MPV 10.6 (7.0-11.0) fl Gran % 94.2 H (50.0-68.0) % Lymph % (Auto) 3.3 L (22.0-35.0) % [place] % (Auto) 2.5 (1.0-6.0) % Eos % (Auto) 0.0 L (1.5-5.0) % Baso % (Auto) 0.0 (0.0-3.0) % Gran # 14.57 H (1.4-6.5) Lymph # (Auto) 0.5 L (1.2-3.4) [place] # (Auto) 0.4 (0.1-0.6) Eos # (Auto) 0.0 (0.0-0.7) Baso # (Auto) 0.00 (0.0-2.0) K/mm3 Neutrophils % (Manual) 97 H (50.0-70.0) % Band Neutrophils % 1 (0-2) % Lymphocytes % (Manual) TEST NOT PERFORMED Monocytes % (Manual) 2 (1.0-6.0) % Platelet Evaluation Low (NORMAL) PT (9.4-12.5) SECONDS INR APTT (25.1-36.5) Seconds D-Dimer, Quantitative (0-243) ng/mlDDU pCO2 36 (35-45) mm/Hg pO2 47.0 L (80-100) mm/Hg HCO3 21.3 (21-28) mmol/L ABG pH 7.38 (7.35-7.45) ABG Total CO2 22.4 (22-28) mmol.L ABG O2 Saturation 86.8 L (95-98) % ABG O2 Content 10.4 L (15-23) ML/dl ABG Base Excess -3.4 L (-2.0-3.0) mmol/L ABG Hemoglobin 8.8 L (11.7-17.4) g/dL ABG Carboxyhemoglobin 2.5 H (0.5-1.5) % POC ABG HHb (Measured) 12.7 H (0-5) % ABG Methemoglobin 1.0 (0.0-3.0) % ABG O2 Capacity 12.0 L (16-24) mL/dl Hgb O2 Saturation 83.8 L (95.0-98.0) % FiO2 65.0 % Sodium (132-148) mmol/L Potassium (3.6-5.0) mmol/L Chloride (98-107) mmol/L Carbon Dioxide (21-33) mmol/L Anion Gap (10-20) BUN (7-21) mg/dL Creatinine (0.8-1.5) mg/dl Est GFR ( Amer) Est GFR (Non-Af Amer) Random Glucose (70-110) mg/dL Calcium (8.4-10.5) mg/dL Total Bilirubin (0.2-1.3) mg/dL AST (17-59) U/L ALT (7-56) U/L Alkaline Phosphatase (38-126) U/L Troponin I 8.96 H* ng/mL Total Protein (5.8-8.3) g/dL Albumin (3.0-4.8) g/dL Globulin gm/dL Albumin/Globulin Ratio (1.1-1.8) 05/06/18 Range/Units 21:00 WBC (4.5-11.0) 10^3/uL RBC (3.5-6.1) 10^6/uL Hgb (14.0-18.0) g/dL Hct (42.0-52.0) % MCV (80.0-105.0) fl MCH (25.0-35.0) pg MCHC (31.0-37.0) g/dl RDW (11.5-14.5) % Plt Count (120.0-450.0) 10^3/uL MPV (7.0-11.0) fl Gran % (50.0-68.0) % Lymph % (Auto) (22.0-35.0) % [place] % (Auto) (1.0-6.0) % Eos % (Auto) (1.5-5.0) % Baso % (Auto) (0.0-3.0) % Gran # (1.4-6.5) Lymph # (Auto) (1.2-3.4) [place] # (Auto) (0.1-0.6) Eos # (Auto) (0.0-0.7) Baso # (Auto) (0.0-2.0) K/mm3 Neutrophils % (Manual) (50.0-70.0) % Band Neutrophils % (0-2) % Lymphocytes % (Manual) Monocytes % (Manual) (1.0-6.0) % Platelet Evaluation (NORMAL) PT (9.4-12.5) SECONDS INR APTT (25.1-36.5) Seconds D-Dimer, Quantitative (0-243) ng/mlDDU pCO2 (35-45) mm/Hg pO2 (80-100) mm/Hg HCO3 (21-28) mmol/L ABG pH (7.35-7.45) ABG Total CO2 (22-28) mmol.L ABG O2 Saturation (95-98) % ABG O2 Content (15-23) ML/dl ABG Base Excess (-2.0-3.0) mmol/L ABG Hemoglobin (11.7-17.4) g/dL ABG Carboxyhemoglobin (0.5-1.5) % POC ABG HHb (Measured) (0-5) % ABG Methemoglobin (0.0-3.0) % ABG O2 Capacity (16-24) mL/dl Hgb O2 Saturation (95.0-98.0) % FiO2 % Sodium (132-148) mmol/L Potassium (3.6-5.0) mmol/L Chloride (98-107) mmol/L Carbon Dioxide (21-33) mmol/L Anion Gap (10-20) BUN (7-21) mg/dL Creatinine (0.8-1.5) mg/dl Est GFR ( Amer) Est GFR (Non-Af Amer) Random Glucose (70-110) mg/dL Calcium (8.4-10.5) mg/dL Total Bilirubin (0.2-1.3) mg/dL AST (17-59) U/L ALT (7-56) U/L Alkaline Phosphatase (38-126) U/L Troponin I 9.66 H* ng/mL Total Protein (5.8-8.3) g/dL Albumin (3.0-4.8) g/dL Globulin gm/dL Albumin/Globulin Ratio (1.1-1.8) Laboratory Results - last 24 hr 05/06/18 05/07/18 05/07/18 21:00 03:00 05:40 WBC RBC Hgb Hct MCV MCH MCHC RDW Plt Count MPV Gran % Lymph % (Auto) [place] % (Auto) Eos % (Auto) Baso % (Auto) Gran # Lymph # (Auto) [place] # (Auto) Eos # (Auto) Baso # (Auto) Neutrophils % (Manual) Band Neutrophils % Lymphocytes % (Manual) Monocytes % (Manual) Platelet Evaluation PT INR APTT D-Dimer, Quantitative pCO2 36 pO2 47.0 L HCO3 21.3 ABG pH 7.38 ABG Total CO2 22.4 ABG O2 Saturation 86.8 L ABG O2 Content 10.4 L ABG Base Excess -3.4 L ABG Hemoglobin 8.8 L ABG Carboxyhemoglobin 2.5 H POC ABG HHb (Measured) 12.7 H ABG Methemoglobin 1.0 ABG O2 Capacity 12.0 L Hgb O2 Saturation 83.8 L FiO2 65.0 Sodium Potassium Chloride Carbon Dioxide Anion Gap BUN Creatinine Est GFR ( Amer) Est GFR (Non-Af Amer) Random Glucose Calcium Total Bilirubin AST ALT Alkaline Phosphatase Troponin I 9.66 H* 8.96 H* Total Protein Albumin Globulin Albumin/Globulin Ratio 05/07/18 05/07/18 05/07/18 06:00 06:00 06:30 WBC 15.5 H RBC 3.20 L Hgb 9.3 L Hct 29.3 L MCV 91.6 MCH 29.1 MCHC 31.7 RDW 17.7 H Plt Count 98 L MPV 10.6 Gran % 94.2 H Lymph % (Auto) 3.3 L [place] % (Auto) 2.5 Eos % (Auto) 0.0 L Baso % (Auto) 0.0 Gran # 14.57 H Lymph # (Auto) 0.5 L [place] # (Auto) 0.4 Eos # (Auto) 0.0 Baso # (Auto) 0.00 Neutrophils % (Manual) 97 H Band Neutrophils % 1 Lymphocytes % (Manual) TEST NOT PERFORMED Monocytes % (Manual) 2 Platelet Evaluation Low PT 25.7 H INR 2.20 APTT 25.5 D-Dimer, Quantitative 6179 H pCO2 pO2 HCO3 ABG pH ABG Total CO2 ABG O2 Saturation ABG O2 Content ABG Base Excess ABG Hemoglobin ABG Carboxyhemoglobin POC ABG HHb (Measured) ABG Methemoglobin ABG O2 Capacity Hgb O2 Saturation FiO2 Sodium 135 Potassium 3.5 L Chloride 105 Carbon Dioxide 25 Anion Gap 8 L BUN 25 H Creatinine 0.6 L Est GFR ( Amer) > 60 Est GFR (Non-Af Amer) > 60 Random Glucose 145 H Calcium 7.3 L Total Bilirubin 0.6 AST 89 H ALT 66 H Alkaline Phosphatase 123 Troponin I 6.33 H* D Total Protein 5.8 Albumin 2.4 L Globulin 3.4 Albumin/Globulin Ratio 0.7 L 05/07/18 12:25 WBC RBC Hgb Hct MCV MCH MCHC RDW Plt Count MPV Gran % Lymph % (Auto) [place] % (Auto) Eos % (Auto) Baso % (Auto) Gran # Lymph # (Auto) [place] # (Auto) Eos # (Auto) Baso # (Auto) Neutrophils % (Manual) Band Neutrophils % Lymphocytes % (Manual) Monocytes % (Manual) Platelet Evaluation PT INR APTT D-Dimer, Quantitative pCO2 39 pO2 63.0 L HCO3 22.0 ABG pH 7.36 ABG Total CO2 23.2 ABG O2 Saturation 93.8 L ABG O2 Content 12.2 L ABG Base Excess -3.2 L ABG Hemoglobin 9.5 L ABG Carboxyhemoglobin 2.6 H POC ABG HHb (Measured) 6.0 H ABG Methemoglobin 0.6 ABG O2 Capacity 13.0 L Hgb O2 Saturation 90.9 L FiO2 100.0 Sodium Potassium Chloride Carbon Dioxide Anion Gap BUN Creatinine Est GFR ( Amer) Est GFR (Non-Af Amer) Random Glucose Calcium Total Bilirubin AST ALT Alkaline Phosphatase Troponin I Total Protein Albumin Globulin Albumin/Globulin Ratio Radiology Impressions: Radiology Impressions Extremity Ultrasound 05/06/18 13:41 IMPRESSION: No sonographic evidence for deep venous thrombosis in the visualized segments of both lower extremities. Chest X-Ray 05/07/18 06:46 IMPRESSION: Diffuse alveolar infiltrate unchanged. Endotracheal tube and nasogastric tube unchanged EKG/Cardiology Studies: Cardiology / EKG Studies 05/07/18 13:03 EKG [ELECTROCARDIOGRAM] Stat Comment: Reason For Exam: svt 05/08/18 07:00 ELECTROCARDIOGRAM Routine Comment: Reason For Exam: CAD PRE OP:: N Does Patient Have a Pacemaker?: No Review of Systems - Review of Systems Systems not reviewed;Unavailable: Intubated Critical Care Progress Note - Ventilator Checklist Head of Bed 30 Degrees: Yes PUD Prophalyxis: Yes DVT Prophylaxis: Yes - Vent Settings TIDAL VOLUME:: 450 RESP RATE:: 14 FIO2:: 100 PEEP:: 12 - Nutrition Nutrition: Nutrition Category Date Time Status NPO Diet [DIET] Diets 05/06/18 Breakfast Ordered Assessment/Plan - Assessment and Plan (Free Text) Assessment: 77 year old male with past medical history of 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 Patient was diagnosed with sepsis 2/2 to HCAP. On 05/05, patient became hypoxia and was in respiratory distress. Patient was intubated and sedated with propofol and versed. Plan: Neuro: Status post intubation -Intubated and sedated with versed and propofol Cardio: NSTEMI -IR, IR, normotensive, no signs of HD compromise -EKG: atrial fibrillation with RVR with PVC with HR: 140 -Troponin: 10.9, 9.66, 8.96, 6.33 -Aspirin 300 mg rectally -Lovenox 60 mg Q12 -Betapace 40 mg BID Atrial fibrillation -IR, IR, normotensive, no signs of HD compromise -EKG: atrial fibrillation with RVR with PVC with HR: 140 -Troponin: 10.9, 9.66, 8.96, 6.33 -Sotalol 80 mg PO BID -Cardizem 120 mg PO daily held -Eliquis 5 mg BID held -Patient's HR increased to 150s and went into atrial fibrillation. Patient was given lopressor 5 mg IV, digoxin 0.5 mgx1 and subsequently, heart rate decreased to the 120s -Maintain MAP>65. -Monitor for S/S, HD compromise. Elevated BNP -BNP: 3240 -Follow up echocardiogram results. Pulm: Hypoxic respiratory failure 2/2 to ARDS from small cell lung carcinoma -Patient intubated and sedated with settings 450/14/12/100% -Maintain O2 saturation>92%. -ABG 05/07: pH: 7.38, pO2: 47 from 75, pCO2: 36 -PEEP increased and O2 saturation increased after patient was found to be hypoxic in ABG -Repeat ABG ordered following change in ventilator settings. Vent: protective lung ventilation strategy, aspiration precautions -Elevate bed to 30 degrees COPD -Continue with prednisone 40 mg Q12, pulmicort 0.5 mg IH Q12, and xopenex 0.63 mg IH TID Multifocal pneumonia -CXR 05/07: extensive bilateral pulmonary opacities. no change from previous CXR -Chest CT 04/27: multifocal pneumonia -Continue with vancomycin 1 gm Q12 and merrem 1 gm Q8 day 3 GI: Elevated LFTs -AST elevated at 89, ALT elevated at 66. -INR: 2.2 -Likely due to congestive hepatopathy -Continue to trend Diet -NPO GI prophylaxis -Protonix 40 mg daily /Nephro: -BUN/Cr stable at 25/0.6 -Yang in place with sufficient output -Continue monitoring. -Replete electrolytes as needed. -Maintain euvolemia. Endocrinology: -Random glucose: 145 -Medium dose sliding scale insulin -Maintain euglycemia. Heme/Onc: -H/H stable at 9.3/29.3 -No signs of HD compromise. -Continue monitoring H/H DVT prophylaxis -Eliquis 5 mg BID currently held Elevated D-dimer -D-dimer elevated at 6149 likely due to metastasis -Bilateral lower extremity ultrasound was negative for DVT ID: Multifocal pneumonia -CXR 05/07: extensive bilateral pulmonary opacities. no change from previous CXR -Chest CT 04/27: multifocal pneumonia -Afebrile, leukocytosis at 15.5 from 14.3 -Blood culture was negative for 5 days upon admission. Blood culture reordered was negative for 24 hours -Procal 05/05: 0.55 -Vancomycin 1 gm Q12, merrem 1 gm Q8, nystatin 5 mg QID -Monitor for signs and symptoms of infection. Patient seen and examined with Dr. Aguilera. - Date & Time Date: 05/07/18 Time: 13:30 <Fausto Aguilera - Last Filed: 05/07/18 14:17> CCU Objective - Vital Signs / Intake & Output Vital Signs (Last 4 hours): Vital Signs Pulse BP 05/07/18 12:48 145 H 101/60 05/07/18 11:35 150 H 105/73 05/07/18 11:18 120/70 05/07/18 11:16 150 H Intake and Output (Last 8hrs): Intake & Output 05/06/18 05/07/18 05/07/18 22:59 06:59 14:59 Intake Total 1247 1561 0 Output Total 600 700 Balance 647 861 0 Weight 148 lb 8 oz Intake: IV 1247 1501 0 Left Hand 1204 1240 Right Subclavian 250 Other 60 Output: Urine 600 700 Urethral (Yang) 600 700 Other: # Bowel Movements 0 - Medications Active Medications: Active Medications Generic Name Dose Route Start Last Admin Trade Name Freq PRN Reason Stop Dose Admin Acetaminophen 650 mg 05/04/18 09:27 Tylenol 325mg Tab PO Q6H PRN Pain, Mild (1-3) Acetylcysteine 4 ml 04/29/18 20:00 05/07/18 07:57 Acetylcysteine 20% IH 4 ml BIDRESP ZARI Administration Apixaban 5 mg 04/27/18 10:00 05/06/18 18:44 Eliquis PO 5 mg BID ZARI Administration Protocol Aspirin 300 mg 05/08/18 10:00 Aspirin Supp RC DAILY ZARI Benzonatate 100 mg 04/26/18 22:48 05/05/18 04:09 Tessalon Perles PO 100 mg TID PRN Administration Cough Budesonide 0.5 mg 04/27/18 20:00 05/07/18 07:57 Pulmicort Respules IH 0.5 mg [id number] ZARI Administration Diltiazem HCl 120 mg 04/27/18 10:00 05/07/18 11:16 Cardizem Cd PO Not Given DAILY ZARI Enoxaparin Sodium 60 mg 05/07/18 10:15 05/07/18 11:20 Lovenox SC 60 mg Q12H ZARI Administration Protocol Furosemide 40 mg 05/08/18 10:00 Lasix IV DAILY ZARI Guaifenesin/Dextromethorphan 5 ml 04/26/18 22:53 05/05/18 04:09 Robitussin Dm PO 5 ml Q4H PRN Administration Cough Meropenem 1 gm in 50 mls @ 100 mls/hr 05/05/18 15:15 05/07/18 05:36 Merrem Iv 1 Gm Premix IVPB 100 mls/hr Q8 ZARI Administration Protocol Vancomycin HCl 1 gm in 250 mls @ 167 mls/hr 05/05/18 15:15 05/07/18 03:06 Vancomycin 1gm IVPB 167 mls/hr Q12H ZARI Administration Protocol Propofol 1,000 mg in 100 mls @ 2.15 mls/hr 05/05/18 15:24 05/06/18 16:04 Diprivan IV 5 mcg/kg/min .Q24H PRN 2.15 mls/hr TITRATE PER MD ORDER Titration Protocol 5 MCG/KG/MIN Midazolam 100 mg/100ml in NS 100 mg in 100 mls @ 1 mls/hr 05/05/18 15:32 05/07/18 12:07 Midazolam 100 Mg/100ml In Ns IV 3 mg/hr .Q24H PRN 3 mls/hr Sedation Titration Protocol 1 MG/HR Sodium Chloride 1,000 mls @ 100 mls/hr 05/06/18 20:42 05/06/18 20:30 Sodium Chloride 0.9% IV 100 mls/hr .Q10H ZARI Administration Insulin Human Lispro 0 units 05/07/18 11:30 Humalog Med SC ACHS [facility] Protocol Levalbuterol HCl 0.63 mg 04/27/18 12:16 05/07/18 02:50 Xopenex IH 0.63 mg [id number] PRN Administration Shortness of Breath Levalbuterol HCl 0.63 mg 04/28/18 20:00 05/07/18 07:57 Xopenex IH 0.63 mg TIDRESP ZARI Administration Methylprednisolone 40 mg 05/07/18 10:15 05/07/18 11:23 Solu-Medrol IVP 40 mg Q12 ZARI Administration Morphine Sulfate 2 mg 05/06/18 12:03 05/07/18 02:25 Morphine IVP 2 mg Q4H PRN Administration Pain, severe (8-10) Nitroglycerin 0.5 ea 05/07/18 09:30 05/07/18 12:12 Nitro-Bid 2% Oint TOP Not Given Q6H ZARI Melatonin [Melatonin 10 mg 04/26/18 22:00 05/06/18 21:31 ] 10 Mg (Home Med) PO Not Given HS ZARI Nystatin 5 ml 05/01/18 14:00 05/07/18 11:24 Nystatin Oral Susp PO 5 ml QID ZARI Administration Pantoprazole Sodium 40 mg 05/02/18 21:00 05/07/18 05:38 Protonix Ec Tab PO 40 mg 0600 ZARI Administration Sotalol HCl 40 mg 05/07/18 18:00 05/07/18 12:41 Betapace PO 40 mg BID ZARI Administration Tramadol HCl 50 mg 05/04/18 09:27 05/05/18 04:09 Ultram PO 50 mg Q8H PRN Administration Pain, moderate (4-7) - Patient Studies Lab Studies: Microbiology Studies 05/05/18 16:00 Blood Culture - Preliminary Blood-Venous NO GROWTH AFTER 24 HOURS 05/05/18 15:30 Blood Culture - Preliminary Blood-Venous NO GROWTH AFTER 24 HOURS Lab Studies 05/07/18 05/07/18 05/07/18 Range/Units 12:25 06:30 06:00 WBC (4.5-11.0) 10^3/uL RBC (3.5-6.1) 10^6/uL Hgb (14.0-18.0) g/dL Hct (42.0-52.0) % MCV (80.0-105.0) fl MCH (25.0-35.0) pg MCHC (31.0-37.0) g/dl RDW (11.5-14.5) % Plt Count (120.0-450.0) 10^3/uL MPV (7.0-11.0) fl Gran % (50.0-68.0) % Lymph % (Auto) (22.0-35.0) % [place] % (Auto) (1.0-6.0) % Eos % (Auto) (1.5-5.0) % Baso % (Auto) (0.0-3.0) % Gran # (1.4-6.5) Lymph # (Auto) (1.2-3.4) [place] # (Auto) (0.1-0.6) Eos # (Auto) (0.0-0.7) Baso # (Auto) (0.0-2.0) K/mm3 Neutrophils % (Manual) (50.0-70.0) % Band Neutrophils % (0-2) % Lymphocytes % (Manual) Monocytes % (Manual) (1.0-6.0) % Platelet Evaluation (NORMAL) PT 25.7 H (9.4-12.5) SECONDS INR 2.20 APTT 25.5 (25.1-36.5) Seconds D-Dimer, Quantitative 6179 H (0-243) ng/mlDDU pCO2 39 (35-45) mm/Hg pO2 63.0 L (80-100) mm/Hg HCO3 22.0 (21-28) mmol/L ABG pH 7.36 (7.35-7.45) ABG Total CO2 23.2 (22-28) mmol.L ABG O2 Saturation 93.8 L (95-98) % ABG O2 Content 12.2 L (15-23) ML/dl ABG Base Excess -3.2 L (-2.0-3.0) mmol/L ABG Hemoglobin 9.5 L (11.7-17.4) g/dL ABG Carboxyhemoglobin 2.6 H (0.5-1.5) % POC ABG HHb (Measured) 6.0 H (0-5) % ABG Methemoglobin 0.6 (0.0-3.0) % ABG O2 Capacity 13.0 L (16-24) mL/dl Hgb O2 Saturation 90.9 L (95.0-98.0) % FiO2 100.0 % Sodium 135 (132-148) mmol/L Potassium 3.5 L (3.6-5.0) mmol/L Chloride 105 (98-107) mmol/L Carbon Dioxide 25 (21-33) mmol/L Anion Gap 8 L (10-20) BUN 25 H (7-21) mg/dL Creatinine 0.6 L (0.8-1.5) mg/dl Est GFR ( Amer) > 60 Est GFR (Non-Af Amer) > 60 Random Glucose 145 H (70-110) mg/dL Calcium 7.3 L (8.4-10.5) mg/dL Total Bilirubin 0.6 (0.2-1.3) mg/dL AST 89 H (17-59) U/L ALT 66 H (7-56) U/L Alkaline Phosphatase 123 (38-126) U/L Troponin I 6.33 H* D ng/mL Total Protein 5.8 (5.8-8.3) g/dL Albumin 2.4 L (3.0-4.8) g/dL Globulin 3.4 gm/dL Albumin/Globulin Ratio 0.7 L (1.1-1.8) 05/07/18 05/07/18 05/07/18 Range/Units 06:00 05:40 03:00 WBC 15.5 H (4.5-11.0) 10^3/uL RBC 3.20 L (3.5-6.1) 10^6/uL Hgb 9.3 L (14.0-18.0) g/dL Hct 29.3 L (42.0-52.0) % MCV 91.6 (80.0-105.0) fl MCH 29.1 (25.0-35.0) pg MCHC 31.7 (31.0-37.0) g/dl RDW 17.7 H (11.5-14.5) % Plt Count 98 L (120.0-450.0) 10^3/uL MPV 10.6 (7.0-11.0) fl Gran % 94.2 H (50.0-68.0) % Lymph % (Auto) 3.3 L (22.0-35.0) % [place] % (Auto) 2.5 (1.0-6.0) % Eos % (Auto) 0.0 L (1.5-5.0) % Baso % (Auto) 0.0 (0.0-3.0) % Gran # 14.57 H (1.4-6.5) Lymph # (Auto) 0.5 L (1.2-3.4) [place] # (Auto) 0.4 (0.1-0.6) Eos # (Auto) 0.0 (0.0-0.7) Baso # (Auto) 0.00 (0.0-2.0) K/mm3 Neutrophils % (Manual) 97 H (50.0-70.0) % Band Neutrophils % 1 (0-2) % Lymphocytes % (Manual) TEST NOT PERFORMED Monocytes % (Manual) 2 (1.0-6.0) % Platelet Evaluation Low (NORMAL) PT (9.4-12.5) SECONDS INR APTT (25.1-36.5) Seconds D-Dimer, Quantitative (0-243) ng/mlDDU pCO2 36 (35-45) mm/Hg pO2 47.0 L (80-100) mm/Hg HCO3 21.3 (21-28) mmol/L ABG pH 7.38 (7.35-7.45) ABG Total CO2 22.4 (22-28) mmol.L ABG O2 Saturation 86.8 L (95-98) % ABG O2 Content 10.4 L (15-23) ML/dl ABG Base Excess -3.4 L (-2.0-3.0) mmol/L ABG Hemoglobin 8.8 L (11.7-17.4) g/dL ABG Carboxyhemoglobin 2.5 H (0.5-1.5) % POC ABG HHb (Measured) 12.7 H (0-5) % ABG Methemoglobin 1.0 (0.0-3.0) % ABG O2 Capacity 12.0 L (16-24) mL/dl Hgb O2 Saturation 83.8 L (95.0-98.0) % FiO2 65.0 % Sodium (132-148) mmol/L Potassium (3.6-5.0) mmol/L Chloride (98-107) mmol/L Carbon Dioxide (21-33) mmol/L Anion Gap (10-20) BUN (7-21) mg/dL Creatinine (0.8-1.5) mg/dl Est GFR ( Amer) Est GFR (Non-Af Amer) Random Glucose (70-110) mg/dL Calcium (8.4-10.5) mg/dL Total Bilirubin (0.2-1.3) mg/dL AST (17-59) U/L ALT (7-56) U/L Alkaline Phosphatase (38-126) U/L Troponin I 8.96 H* ng/mL Total Protein (5.8-8.3) g/dL Albumin (3.0-4.8) g/dL Globulin gm/dL Albumin/Globulin Ratio (1.1-1.8) 05/06/18 Range/Units 21:00 WBC (4.5-11.0) 10^3/uL RBC (3.5-6.1) 10^6/uL Hgb (14.0-18.0) g/dL Hct (42.0-52.0) % MCV (80.0-105.0) fl MCH (25.0-35.0) pg MCHC (31.0-37.0) g/dl RDW (11.5-14.5) % Plt Count (120.0-450.0) 10^3/uL MPV (7.0-11.0) fl Gran % (50.0-68.0) % Lymph % (Auto) (22.0-35.0) % [place] % (Auto) (1.0-6.0) % Eos % (Auto) (1.5-5.0) % Baso % (Auto) (0.0-3.0) % Gran # (1.4-6.5) Lymph # (Auto) (1.2-3.4) [place] # (Auto) (0.1-0.6) Eos # (Auto) (0.0-0.7) Baso # (Auto) (0.0-2.0) K/mm3 Neutrophils % (Manual) (50.0-70.0) % Band Neutrophils % (0-2) % Lymphocytes % (Manual) Monocytes % (Manual) (1.0-6.0) % Platelet Evaluation (NORMAL) PT (9.4-12.5) SECONDS INR APTT (25.1-36.5) Seconds D-Dimer, Quantitative (0-243) ng/mlDDU pCO2 (35-45) mm/Hg pO2 (80-100) mm/Hg HCO3 (21-28) mmol/L ABG pH (7.35-7.45) ABG Total CO2 (22-28) mmol.L ABG O2 Saturation (95-98) % ABG O2 Content (15-23) ML/dl ABG Base Excess (-2.0-3.0) mmol/L ABG Hemoglobin (11.7-17.4) g/dL ABG Carboxyhemoglobin (0.5-1.5) % POC ABG HHb (Measured) (0-5) % ABG Methemoglobin (0.0-3.0) % ABG O2 Capacity (16-24) mL/dl Hgb O2 Saturation (95.0-98.0) % FiO2 % Sodium (132-148) mmol/L Potassium (3.6-5.0) mmol/L Chloride (98-107) mmol/L Carbon Dioxide (21-33) mmol/L Anion Gap (10-20) BUN (7-21) mg/dL Creatinine (0.8-1.5) mg/dl Est GFR ( Amer) Est GFR (Non-Af Amer) Random Glucose (70-110) mg/dL Calcium (8.4-10.5) mg/dL Total Bilirubin (0.2-1.3) mg/dL AST (17-59) U/L ALT (7-56) U/L Alkaline Phosphatase (38-126) U/L Troponin I 9.66 H* ng/mL Total Protein (5.8-8.3) g/dL Albumin (3.0-4.8) g/dL Globulin gm/dL Albumin/Globulin Ratio (1.1-1.8) Laboratory Results - last 24 hr 05/06/18 05/07/18 05/07/18 21:00 03:00 05:40 WBC RBC Hgb Hct MCV MCH MCHC RDW Plt Count MPV Gran % Lymph % (Auto) [place] % (Auto) Eos % (Auto) Baso % (Auto) Gran # Lymph # (Auto) [place] # (Auto) Eos # (Auto) Baso # (Auto) Neutrophils % (Manual) Band Neutrophils % Lymphocytes % (Manual) Monocytes % (Manual) Platelet Evaluation PT INR APTT D-Dimer, Quantitative pCO2 36 pO2 47.0 L HCO3 21.3 ABG pH 7.38 ABG Total CO2 22.4 ABG O2 Saturation 86.8 L ABG O2 Content 10.4 L ABG Base Excess -3.4 L ABG Hemoglobin 8.8 L ABG Carboxyhemoglobin 2.5 H POC ABG HHb (Measured) 12.7 H ABG Methemoglobin 1.0 ABG O2 Capacity 12.0 L Hgb O2 Saturation 83.8 L FiO2 65.0 Sodium Potassium Chloride Carbon Dioxide Anion Gap BUN Creatinine Est GFR ( Amer) Est GFR (Non-Af Amer) Random Glucose Calcium Total Bilirubin AST ALT Alkaline Phosphatase Troponin I 9.66 H* 8.96 H* Total Protein Albumin Globulin Albumin/Globulin Ratio 05/07/18 05/07/18 05/07/18 06:00 06:00 06:30 WBC 15.5 H RBC 3.20 L Hgb 9.3 L Hct 29.3 L MCV 91.6 MCH 29.1 MCHC 31.7 RDW 17.7 H Plt Count 98 L MPV 10.6 Gran % 94.2 H Lymph % (Auto) 3.3 L [place] % (Auto) 2.5 Eos % (Auto) 0.0 L Baso % (Auto) 0.0 Gran # 14.57 H Lymph # (Auto) 0.5 L [place] # (Auto) 0.4 Eos # (Auto) 0.0 Baso # (Auto) 0.00 Neutrophils % (Manual) 97 H Band Neutrophils % 1 Lymphocytes % (Manual) TEST NOT PERFORMED Monocytes % (Manual) 2 Platelet Evaluation Low PT 25.7 H INR 2.20 APTT 25.5 D-Dimer, Quantitative 6179 H pCO2 pO2 HCO3 ABG pH ABG Total CO2 ABG O2 Saturation ABG O2 Content ABG Base Excess ABG Hemoglobin ABG Carboxyhemoglobin POC ABG HHb (Measured) ABG Methemoglobin ABG O2 Capacity Hgb O2 Saturation FiO2 Sodium 135 Potassium 3.5 L Chloride 105 Carbon Dioxide 25 Anion Gap 8 L BUN 25 H Creatinine 0.6 L Est GFR ( Amer) > 60 Est GFR (Non-Af Amer) > 60 Random Glucose 145 H Calcium 7.3 L Total Bilirubin 0.6 AST 89 H ALT 66 H Alkaline Phosphatase 123 Troponin I 6.33 H* D Total Protein 5.8 Albumin 2.4 L Globulin 3.4 Albumin/Globulin Ratio 0.7 L 05/07/18 12:25 WBC RBC Hgb Hct MCV MCH MCHC RDW Plt Count MPV Gran % Lymph % (Auto) [place] % (Auto) Eos % (Auto) Baso % (Auto) Gran # Lymph # (Auto) [place] # (Auto) Eos # (Auto) Baso # (Auto) Neutrophils % (Manual) Band Neutrophils % Lymphocytes % (Manual) Monocytes % (Manual) Platelet Evaluation PT INR APTT D-Dimer, Quantitative pCO2 39 pO2 63.0 L HCO3 22.0 ABG pH 7.36 ABG Total CO2 23.2 ABG O2 Saturation 93.8 L ABG O2 Content 12.2 L ABG Base Excess -3.2 L ABG Hemoglobin 9.5 L ABG Carboxyhemoglobin 2.6 H POC ABG HHb (Measured) 6.0 H ABG Methemoglobin 0.6 ABG O2 Capacity 13.0 L Hgb O2 Saturation 90.9 L FiO2 100.0 Sodium Potassium Chloride Carbon Dioxide Anion Gap BUN Creatinine Est GFR ( Amer) Est GFR (Non-Af Amer) Random Glucose Calcium Total Bilirubin AST ALT Alkaline Phosphatase Troponin I Total Protein Albumin Globulin Albumin/Globulin Ratio Radiology Impressions: Radiology Impressions Extremity Ultrasound 05/06/18 13:41 IMPRESSION: No sonographic evidence for deep venous thrombosis in the visualized segments of both lower extremities. Chest X-Ray 05/07/18 06:46 IMPRESSION: Diffuse alveolar infiltrate unchanged. Endotracheal tube and nasogastric tube unchanged EKG/Cardiology Studies: Cardiology / EKG Studies 05/07/18 13:03 EKG [ELECTROCARDIOGRAM] Stat Comment: Reason For Exam: svt 05/08/18 07:00 ELECTROCARDIOGRAM Routine Comment: Reason For Exam: CAD PRE OP:: N Does Patient Have a Pacemaker?: No Critical Care Progress Note - Nutrition Nutrition: Nutrition Category Date Time Status NPO Diet [DIET] Diets 05/06/18 Breakfast Ordered Assessment/Plan - Assessment and Plan (Free Text) Plan: Patient seen and examined on rounds with resident, agree with note with following additions/exceptions: Patient is 77yo male with PMHx of 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, mediastinal hilar adenopathy status post radiation, atrial fibrillation, COPD, insomina, PUD, gastritis admitted with SOB, HCAP, AMS, respiratory failure to MICU Currently intubated, sedated off vasopressor support Patient requiring FiO2 100%, PEEP 12 Labs, imaging, chart reviewed Extremely poor prognosis Respiratory failure, hypoxic HCAP rule out ARDS COPD Small Cell Lung Ca, stage IV Afib Elevated troponin Recommend: - cont with vent support, low tidal vol ventilation 6cc/kg PBW, FiO2 100%, PEEP 12, may need to be paralyzrf - Abx as per ID, Mercesia, Vanco, Azithro - Lasix 40mg IV BID - Heparin drip - ASA, start IV Lopressor - Lovenox 1mg/kg BID - monitor LFTs - FS control - GI ppx - DVT ppx, Lovenox - Monitor in MICU Patient is FULL CODE Extremely poor prognosis Palliative care consult Critical care time 45 minutes
--- NOTE | 2018-05-07 13:47 | CARD ---
APPROVED REPORT Date of service: 05/07/2018 EXAM: Two-dimensional and M-mode echocardiogram with Doppler and color Doppler. INDICATION Non STEMI 2D DIMENSIONS IVSd1.3 (0.7-1.1cm)LVDd3.4 (3.9-5.9cm) PWd1.6 (0.7-1.1cm)LVDs2.6 (2.5-4.0cm) FS (%) 24.2 %LVEF (%)49.3 (>50%) M-Mode DIMENSIONS Aortic Root2.80 (2.2-3.7cm)Aortic Cusp Exc.1.90 (1.5-2.0cm) Mitral Valve E/A ratio0.0 TDI E/Lateral E'0.0E/Medial E'0.0 Tricuspid Valve TR Peak [id number] Peak Gr.40mmHg [id number] LEFT VENTRICLE The left ventricle is normal size. There is mild concentric left ventricular hypertrophy. Left ventricle systolic function is low normal.EF-50-55% There is normal LV segmental wall motion. Transmitral Doppler flow pattern is Grade II-pseudonormal filling dynamics. No left ventricle thrombus noted on this study. There is no ventricular septal defect visualized. There is no left ventricular aneurysm. There is no mass noted in the left ventricle. RIGHT VENTRICLE The right ventricle is normal size. There is normal right ventricular wall thickness. The right ventricular systolic function is normal. ATRIA The left atrium size is normal. The right atrium size is normal. The interatrial septum is intact with no evidence for an atrial septal defect. AORTIC VALVE The aortic valve is thickened but opens well. There is trace aortic regurgitation. There is no aortic valvular stenosis. There is no aortic valvular vegetation. MITRAL VALVE The mitral valve is thickened but opens well. Mitral regurgitation is mild. There is no mitral valve stenosis. There is no evidence of mitral valve prolapse. TRICUSPID VALVE The tricuspid valve leaflets are thickened , but open well. There is mild to moderate tricuspid regurgitation.RVSP-50 mmof Hg. There is mild pulmonary hypertension. There is no tricuspid valve stenosis. There is no tricuspid valve prolapse or vegetation. PULMONIC VALVE The pulmonic valve is mildly thickened. There is trace to mild pulmonic valvular regurgitation. There is no pulmonic valvular stenosis. GREAT VESSELS The aortic root is normal in size. The ascending aorta is normal in size. The pulmonary artery is normal. The IVC is normal in size and collapses >50% with inspiration. PERICARDIAL EFFUSION There is no pleural effusion. There is no pericardial effusion. <Conclusion> Normal chamber Size. EF-50-55% There is trace aortic regurgitation. Mitral regurgitation is mild. There is mild to moderate tricuspid regurgitation.RVSP-50 mmof Hg. There is mild pulmonary hypertension. The IVC is normal in size and collapses >50% with inspiration. There is no pericardial effusion. no vegetation or thrombus noted.
--- NOTE | 2018-05-07 14:06 | PN ---
DATE: 05/07/2018 REASON FOR CONSULTATION: Status post rapid response, status post intubated, respiratory failure, elevated troponin, history of lung CA with metastasis, admitted with failure to thrive. Patient being intubated, sedated, not in apparent distress. SUBJECTIVE: Patient remains intubated and sedated. OBJECTIVE: GENERAL: Unable to talk, not in apparent distress. VITAL SIGNS: Temperature afebrile. Heart rate 82, blood pressure 112/70. HEENT: PERRLA. Extraocular muscles intact. NECK: Supple. No carotid bruit. No thyromegaly. CHEST: Clear to auscultation. HEART: S1 and S2 regular. ABDOMEN: Soft. EXTREMITIES: Clubbing and cyanosis negative. LABORATORY DATA: WBC 15.5, hemoglobin 9.7, hematocrit 29.3, platelet count 98. Chemistry shows sodium 135, potassium 3.5, chloride 105, carbon dioxide 25, anion gap of 8, BUN 25, creatinine 0.9. Troponin trended down 6.33, peak 10.90. EKG showed sinus rhythm with premature complexes, ST-T changes consistent with lateral ischemia. IMPRESSION: A 77-year-old male with past medical history recently diagnosed lung carcinoma with metastasis ____ status post rapid response, status post radiation, status post chemo, history of chronic obstructive pulmonary disease. No history of coronary artery disease in the past, smoker, history of paroxysmal atrial fibrillation on anticoagulation who was on the floor, had a rapid response moved to intensive care unit, intubated, respiratory failure. Mid troponin positive at 10.9 and now has trended down to 6.33. Chest x-ray consistent with bilateral pulmonary opacity. Non-ST segment myocardial infarction, respiratory failure as mentioned above, chronic obstructive pulmonary disease, lung cancer with metastasis. RECOMMENDATION: We will treat medically, continue vent management, extubate when patient is stable, continue broad-spectrum antibiotics. We will start Lovenox nitrate as blood pressure tolerated, low-dose beta aashish. We will treat conservatively for now. Further recommendation of hospital course because chest x-ray consistent with a bilateral fluffy infiltrate. A recent echocardiography dated 12/16/2017, shows normal chamber size, normal systolic function, mild concentric LVH, mild tricuspid regurgitation, RV systolic pressure 27. Ejection fraction calculated 56% dated 12/16/2017. We will repeat another echo to assess LV function. We will follow with you. BNP was elevated 3240. We will continue gentle diuretics, keeping negative fluid balance. We will follow with you. Thank you, Dr. Bullard, for providing us the opportunity in taking care of the patient. Overall, patient's condition is critical. senior living prognosis is extremely guarded. We will follow with you. No plan for intervention at this time, but we will treat conservatively. Aura Orozco MD
--- NOTE | 2018-05-07 14:11 | PN ---
DATE: 05/07/2018 PULMONARY PROGRESS NOTE REFERRING PHYSICIAN: Dr. Erasmo Briggs. SUBJECTIVE: The patient is intubated and sedated, requiring high oxygen concentration, currently on 100% oxygen concentration. No hemoptysis, hematemesis, hematuria, diarrhea, or swelling reported. OBJECTIVE: GENERAL: No acute distress. VITAL SIGNS: Blood pressure 112/70, pulse 82, oxygen saturation 100%, and temperature 97.5. HEENT: Moist mucous membrane. ET tube, no secretions. NECK: Supple. No JVD. LUNGS: Scattered rhonchi; overall fair airflow. CARDIOVASCULAR: S1 and S2. ABDOMEN: Soft and nontender. No distention. EXTREMITIES: No bilateral lower extremity edema. NEUROLOGIC: Intubated and sedated. MEDICATIONS: Reviewed. Tylenol 650 mg every 6 hours p.r.n. for mild pain, Mucomyst 4 mL inhalation twice a day, Eliquis 5 mg twice a day, aspirin 300 mg rectally daily, Tessalon Perles 100 mg three times a day p.r.n., Pulmicort 0.5 mg inhalation every 12 hours, Cardizem 120 mg daily, Lovenox 60 mg every 12 hours, Lasix 40 mg daily, Robitussin 5 mL every 4 hours p.r.n., Humalog sliding scale before meals and at bedtime, Xopenex 0.63 mg every 6 hours p.r.n., Xopenex 0.63 mg inhalation three times a day, meropenem 1 g every 8 hours, Solu-Medrol 40 mg every 12 hours, midazolam 100 mg p.r.n., morphine 2 mg every 4 hours p.r.n., nitroglycerine 0.5 topically every 6 hours, melatonin 10 mg at bedtime, nystatin 5 mL four times a day, Protonix 40 mg daily, potassium chloride 20 mEq, propofol p.r.n., sodium chloride 0.9% 1000 mL at 100 mL per hour, sotalol 40 mg twice a day, tramadol 50 mg every 8 hours p.r.n., and vancomycin 1 g every 12 hours. LABORATORY DATA: Reviewed. WBC 15.5, RBC 3.2, hemoglobin 9.3, hematocrit 29.3, and platelets 98. PT 25.7, INR 2.20, APTT 25.5, D-dimer 6179, pCO2 of 36, pO2 of 47, ACO3 of 21.3, 7.38. Sodium 135, potassium 3.5, chloride 105, carbon dioxide 25, anion gap 8, BUN 25, creatinine 0.9, GFR greater than 60, random glucose 145, calcium 7.3, total bilirubin 0.6, AST 89, ALT 56, alkaline phosphatase 123, troponin 6.33, total protein 5.8, albumin 2.4, globulin 3.4, and albumin-globulin ratio 0.7. Blood cultures preliminary, no growth after 24 hours. Chest x-ray shows diffuse alveolar infiltrate unchanged, endotracheal tube and nasogastric tube unchanged. Extremity ultrasound shows no phonographic evidence of deep venous thrombosis in both lower extremities. IMPRESSION AND PLAN: Unresectable lung cancer, requiring radiation and chemotherapy; chronic obstructive lung disease; paroxysmal atrial fibrillation; thrush; respiratory failure, on ventilator; and myocardial infarction. Continue steroids and antibiotic therapy. The patient is scheduled to have echocardiogram done. We will order CTA, procalcitonin, ABGs, chest x-ray, CBC, and CMP in the morning. Critical care time spent more than 35 minutes. This patient was seen and examined with Dr. Yi. Discussed assessment and plan as described above. Thank you for this consult. We will follow with you. Juan Carlos Paul APN Aura Yi MD [facility]
[2018-05-07] MEDS: Propofol 10 mg/ml 1,000 MG/100 ML VIAL IV PRN (16:13)
[2018-05-07] MEDS: Midazolam 100 mg/100ml in NS 100 MG/100 ML SOL IV PRN (17:38)
[2018-05-07] MEDS: Insulin Lispro (humaLOG) MEDIUM Coverage SC SCH ×2 (17:44→22:16)
--- NOTE | 2018-05-07 18:28 | CARD ---
APPROVED REPORT Date of service: 05/07/2018 EKG Measurement Heart [id number] <Conclusion> Atrial fibrillation with rapid ventricular response Marked ST abnormality, possible septal subendocardial injury Abnormal ECG
[2018-05-07] MEDS: MELATONIN 10 MG PO SCH (22:17)
[2018-05-08] MEDS: Levalbuterol 0.63 MG/3 ML Inhal Soln UD IH PRN (03:00)
[2018-05-08] MEDS: Nitroglycerin 2% Ointment Foilpak UD TOP SCH ×4 (03:32→22:16)
[2018-05-08] MEDS: Vancomycin 1gm in NS 250ml 1 GM/250 ML BAG IVPB SCH ×2 (03:43→14:46)
[2018-05-08] MEDS: Pantoprazole 40 mg EC Tab PO SCH (05:00)
[2018-05-08] MEDS: Meropenem IV 1 gm in NS 1 GM/50 ML BAG IVPB SCH ×3 (05:22→22:25)
[2018-05-08 06:42] LABS: ARTERIAL BLOOD GAS HCO3 24.3 mmol/L (21-28); ARTERIAL BLOOD GAS HEMOGLOBIN 9.3 g/dL (11.7-17.4); ARTERIAL BLOOD GAS O2 CAPACITY 13.2 mL/dl (16-24); ARTERIAL BLOOD GAS O2 CONTENT 13.2 ML/dl (15-23); ARTERIAL BLOOD GAS PCO2 45 mm/Hg (35-45); ARTERIAL BLOOD GAS PH 7.34 (7.35-7.45); ARTERIAL BLOOD GAS TCO2 25.7 mmol.L (22-28)
[2018-05-08 07:07] LABS: GRAN # 12.89 (1.4-6.5); GRAN % 94.3 % (50.0-68.0); HEMOGLOBIN 9.2 g/dL (14.0-18.0); LYMPH # 0.4 (1.2-3.4); LYMPH % 3.2 % (22.0-35.0); MEAN CELL VOLUME 95.3 fl (80.0-105.0); MEAN CORPUSCULAR HEMOGLOBIN 28.9 pg (25.0-35.0); MEAN CORPUSCULAR HGB CONC 30.4 g/dl (31.0-37.0); MEAN PLATELET VOLUME 10.3 fl (7.0-11.0); MONO # 0.3 (0.1-0.6); MONO % 2.5 % (1.0-6.0); RBC 3.18 10^6/uL (3.5-6.1); RED CELL DISTRIBUTION WIDTH 17.9 % (11.5-14.5); WHITE BLOOD COUNT 13.7 10^3/uL (4.5-11.0)
--- NOTE | 2018-05-08 07:39 | RAD ---
Date of service: 05/08/2018 HISTORY: R/O pneumonia Vs CHF COMPARISON: 05/07/2018 FINDINGS: LUNGS: There is an increasing diffuse alveolar infiltrate most consistent with pulmonary edema. Pneumonia cannot be excluded. Central lines and tubes are unchanged PLEURA: No significant pleural effusion identified, no pneumothorax apparent. CARDIOVASCULAR: No aortic atherosclerotic calcification present. Mild to moderate cardiomegaly vascular congestion OSSEOUS STRUCTURES: No significant abnormalities. VISUALIZED UPPER ABDOMEN: Normal. OTHER FINDINGS: None. IMPRESSION: There is an increasing diffuse alveolar infiltrate most consistent with pulmonary edema. Pneumonia cannot be excluded. Central lines and tubes are unchanged
--- NOTE | 2018-05-08 07:45 | CP.PCM.PN ---
<Anthony Chong - Last Filed: 05/08/18 16:31> Subjective - Date & Time of Evaluation Date of Evaluation: 05/08/18 Time of Evaluation: 07:33 - Subjective Subjective: PGY-2 heme/onc progress note No acute events noted overnight. Patient intubated and sedated. ROS were not obtainable. Objective - Vital Signs/Intake and Output Vital Signs (last 24 hours): Temp Pulse Resp BP Pulse Ox 98.5 F 93 H 18 97/56 L 100 05/08/18 05:00 05/08/18 06:00 05/08/18 05:00 05/08/18 05:00 05/08/18 05:00 Intake and Output: 05/08/18 05/08/18 06:59 18:59 Intake Total 556 Output Total 725 Balance -169 - Medications Medications: Current Medications Acetaminophen (Tylenol 325mg Tab) 650 mg PO Q6H PRN PRN Reason: Pain, Mild (1-3) Acetylcysteine (Acetylcysteine 20%) 4 ml IH BIDRESP [facility] Last Admin: 05/07/18 20:30 Dose: 4 ml Apixaban (Eliquis) 5 mg PO BID [facility]; Protocol Last Admin: 05/06/18 18:44 Dose: 5 mg Aspirin (Aspirin Supp) 300 mg RC DAILY [facility] Benzonatate (Tessalon Perles) 100 mg PO TID PRN PRN Reason: Cough Last Admin: 05/05/18 04:09 Dose: 100 mg Budesonide (Pulmicort Respules) 0.5 mg IH [id number] [facility] Last Admin: 05/07/18 20:30 Dose: 0.5 mg Diltiazem HCl (Cardizem Cd) 120 mg PO DAILY [facility] Last Admin: 05/07/18 11:16 Dose: Not Given Enoxaparin Sodium (Lovenox) 60 mg SC Q12H [facility]; Protocol Last Admin: 05/07/18 22:16 Dose: 60 mg Furosemide (Lasix) 40 mg IV DAILY [facility] Guaifenesin/Dextromethorphan (Robitussin Dm) 5 ml PO Q4H PRN PRN Reason: Cough Last Admin: 05/05/18 04:09 Dose: 5 ml Meropenem (Merrem Iv 1 Gm Premix) 1 gm in 50 mls @ 100 mls/hr IVPB Q8 [facility]; Protocol Last Admin: 05/08/18 05:22 Dose: 100 mls/hr Vancomycin HCl (Vancomycin 1gm) 1 gm in 250 mls @ 167 mls/hr IVPB Q12H [facility]; Protocol Last Admin: 05/08/18 03:43 Dose: 167 mls/hr Propofol (Diprivan) 1,000 mg in 100 mls @ 2.15 mls/hr IV .Q24H PRN; Protocol PRN Reason: TITRATE PER MD ORDER Last Titration: 05/07/18 22:11 Dose: 5 mcg/kg/min, 2.15 mls/hr Midazolam 100 mg/100ml in NS (Midazolam 100 Mg/100ml In Ns) 100 mg in 100 mls @ 1 mls/hr IV .Q24H PRN; Protocol PRN Reason: Sedation Last Admin: 05/07/18 17:38 Dose: 3 mg/hr, 3 mls/hr Sodium Chloride (Sodium Chloride 0.9%) 1,000 mls @ 100 mls/hr IV .Q10H [facility] Last Admin: 05/06/18 20:30 Dose: 100 mls/hr Insulin Human Lispro (Humalog Med) 0 units SC ACHS [facility]; Protocol Last Admin: 05/07/18 22:16 Dose: Not Given Levalbuterol HCl (Xopenex) 0.63 mg IH [id number] PRN PRN Reason: Shortness of Breath Last Admin: 05/08/18 03:00 Dose: 0.63 mg Levalbuterol HCl (Xopenex) 0.63 mg IH TIDRESP [facility] Last Admin: 05/07/18 20:30 Dose: 0.63 mg Methylprednisolone (Solu-Medrol) 40 mg IVP Q12 [facility] Last Admin: 05/07/18 22:19 Dose: 40 mg Morphine Sulfate (Morphine) 2 mg IVP Q4H PRN PRN Reason: Pain, severe (8-10) Last Admin: 05/07/18 02:25 Dose: 2 mg Nitroglycerin (Nitro-Bid 2% Oint) 0.5 ea TOP Q6H [facility] Last Admin: 05/08/18 03:32 Dose: 0.5 ea Melatonin [Melatonin (] 10 Mg (Home Med)) 10 mg PO HS [facility] Last Admin: 05/07/18 22:17 Dose: Not Given Nystatin (Nystatin Oral Susp) 5 ml PO QID [facility] Last Admin: 05/07/18 22:19 Dose: 5 ml Pantoprazole Sodium (Protonix Ec Tab) 40 mg PO 0600 [facility] Last Admin: 05/08/18 05:00 Dose: 40 mg Sotalol HCl (Betapace) 40 mg PO BID [facility] Last Admin: 05/07/18 20:31 Dose: 40 mg Tramadol HCl (Ultram) 50 mg PO Q8H PRN PRN Reason: Pain, moderate (4-7) Last Admin: 05/05/18 04:09 Dose: 50 mg - Labs Labs: 05/08/18 05:40 05/07/18 06:00 PT 25.7 SECONDS (9.4-12.5) H 05/07/18 06:30 INR 2.20 05/07/18 06:30 APTT 25.5 Seconds (25.1-36.5) 05/07/18 06:30 - Constitutional Appears: Cachectic, Chronically Ill - Head Exam Head Exam: ATRAUMATIC, NORMAL INSPECTION - Eye Exam Eye Exam: EOMI, Normal appearance, PERRL. absent: Scleral icterus - ENT Exam ENT Exam: Mucous Membranes Moist - Neck Exam Neck Exam: Full ROM - Respiratory Exam Respiratory Exam: Decreased Breath Sounds, NORMAL BREATHING PATTERN. absent: Clear to Ausculation Bilateral - Cardiovascular Exam Cardiovascular Exam: Tachycardia, REGULAR RHYTHM, +S1, +S2. absent: Murmur - GI/Abdominal Exam GI & Abdominal Exam: Soft, Normal Bowel Sounds. absent: Distended, Tenderness - Extremities Exam Extremities Exam: Normal Capillary Refill, Normal Inspection - Neurological Exam Neurological Exam: Alert, Oriented x3 - Psychiatric Exam Psychiatric exam: Anxious - Skin Skin Exam: Normal Color, Warm - Additional Findings Additional findings: - Constitutional Appears: Cachectic, Chronically Ill - Head Exam Head Exam: NORMOCEPHALIC - Eye Exam Eye Exam: PERRL - ENT Exam ENT Exam: Mucous Membranes Moist - Respiratory Exam Respiratory Exam: Decreased Breath Sounds - Cardiovascular Exam Cardiovascular Exam: Tachycardia, +S1, +S2 - GI/Abdominal Exam GI & Abdominal Exam: Normal Bowel Sounds, Soft - Skin Skin Exam: Dry, Pallor Assessment and Plan - Assessment and Plan (Free Text) Plan: 77 year old male with past medical history of 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 Patient was diagnosed with sepsis 2/2 to HCAP. On 05/05, patient became hypoxia and was in respiratory distress. Patient was intubated and sedated with propofol and versed. #History of small cell lung cancer stage 4 on radiation and chemotherapy #History of atrial fibrillation #COPD #SIRS, consider sepsis due to multifocal HCAP Plan: Patient moved to ICU on 05/05/18 after respiratory distress requiring intubation. Still intubated and sedated. CT of chest showed multifocal pneumonia. Patient completed 7 days of merrem and doxycycline on the floors. Now on vancomycin 1g q12h and merrem 1g q8h day 4. Continue with abx per ID. Chemotherapy on hold till completion of abx course and recovery. Reviewed brain MRI - did not show mass lesions or CVA. He released troponins which were downtrending but today spiked up, he also has AFib with RVR - he is on lovenox 60mg ivp q12h - his home eliquis 5mg bid is on hold, he is also receiving aspirin 300mg rectally, he is on sotalol 40mg po bid, his cardizem is currently being held. Cardio Dr Orozco and Pulm Dr Yi on board. Per pulm recommendation - continue pulmicort 0.5mg ih q12h and xopenex 0.63mg ih q6h prn and scheduled. Nystatin for oral thrush. Tramadol for pain control. As for his cancer - he had a PET scan about just a few weeks ago which showed vast improvement in his cancer (primary and his mets). Dr Bullard to have a discussion with patient's son Raad later today. Dispo: At this time PT is recommending subacute rehab however patient declined [facility], he wishes to go to TCU however insurance will not cover him however he does not want to go home either - call placed out to son to discuss options Case discussed with Dr Bullard <Anu Bullard P - Last Filed: 05/18/18 23:02> Objective - Vital Signs/Intake and Output Vital Signs (last 24 hours): Temp Pulse Resp BP Pulse Ox 97.5 F L 65 21 99/50 L 100 05/18/18 14:00 05/18/18 21:25 05/16/18 07:03 05/18/18 21:25 05/18/18 14:00 Intake and Output: 05/18/18 05/19/18 18:59 06:59 Intake Total 2824 Balance 2824 - Medications Medications: Current Medications Acetaminophen (Tylenol 650 Mg Supp) 650 mg RC Q6H PRN PRN Reason: Fever >100.4 F Last Admin: 05/10/18 20:55 Dose: 650 mg Acetaminophen (Tylenol 650mg/20.3ml Solution Ud) 650 mg NG Q6H PRN PRN Reason: FEVER > 100.4 Last Admin: 05/14/18 09:29 Dose: 650 mg Aspirin (Aspirin Chewable) 81 mg PO DAILY [facility] Last Admin: 05/18/18 10:38 Dose: 81 mg Budesonide (Pulmicort Respules) 0.5 mg IH [id number] [facility] Last Admin: 05/18/18 19:43 Dose: 0.5 mg Dextrose (Dextrose 50% Inj) 0 ml IV STAT PRN; Protocol PRN Reason: Hypoglycemia Protocol Dextrose (Dextrose 50% Inj) 0 ml IV STAT PRN; Protocol PRN Reason: Hypoglycemia Protocol Diltiazem HCl (Cardizem Cd) 120 mg PO DAILY [facility] Last Admin: 05/07/18 11:16 Dose: Not Given Hydromorphone HCl (Dilaudid) 0.5 mg IVP Q4H PRN PRN Reason: Pain, severe (8-10) Last Admin: 05/18/18 06:32 Dose: 0.5 mg Meropenem (Merrem Iv 1 Gm Premix) 1 gm in 50 mls @ 100 mls/hr IVPB Q8 [facility]; Protocol Last Admin: 05/18/18 22:22 Dose: 100 mls/hr Dexmedetomidine HCl (Precedex 400mcg/100ml) 400 mcg in 100 mls @ 3.357 mls/hr IV .Q24H PRN; Protocol PRN Reason: Sedation Last Titration: 05/17/18 22:54 Dose: 0 mcg/kg/hr, 0 mls/hr Dextrose (Dextrose 5% In Water 1000 Ml) 1,000 mls @ 0 mls/hr IV .Q0M PRN; Protocol PRN Reason: Hypoglycemia Protocol Fentanyl Citrate (Fentanyl Citrate/Sodium Chloride 1 Mg/100 Ml) 1,000 mcg in 100 mls @ 2 mls/hr IV .Q24H PRN; Protocol PRN Reason: TITRATE PER MD ORDER Last Admin: 05/18/18 11:26 Dose: 70 mcg/hr, 7 mls/hr Dextrose (Dextrose 5% In Water 1000 Ml) 1,000 mls @ 0 mls/hr IV .Q0M PRN; Protocol PRN Reason: Hypoglycemia Protocol Insulin Human Lispro (Humalog High) 0 units SC Q6 [facility]; Protocol Last Admin: 05/18/18 16:45 Dose: 7 unit Levalbuterol HCl (Xopenex) 0.63 mg IH [id number] PRN PRN Reason: Shortness of Breath Last Admin: 05/15/18 02:05 Dose: 0.63 mg Levalbuterol HCl (Xopenex) 0.63 mg IH TIDRESP [facility] Last Admin: 05/18/18 19:43 Dose: 0.63 mg Methylprednisolone (Solu-Medrol) 20 mg IVP Q12 [facility] Last Admin: 05/18/18 22:26 Dose: 20 mg Pantoprazole Sodium (Protonix Inj) 40 mg IVP DAILY [facility] Last Admin: 05/18/18 10:38 Dose: 40 mg Propranolol HCl (Inderal) 20 mg PO Q6H [facility] Last Admin: 05/18/18 21:25 Dose: Not Given Sotalol HCl (Betapace) 40 mg PO BID [facility] Last Admin: 05/11/18 09:16 Dose: Not Given Verapamil HCl (Calan Tab) 40 mg PO TID [facility] Last Admin: 05/11/18 09:16 Dose: Not Given Verapamil HCl (Verapamil Inj) 2.5 mg IVP Q6 PRN PRN Reason: FOR HR GREATER THAN 130 Last Admin: 05/17/18 13:34 Dose: 2.5 mg - Labs Labs: 05/18/18 05:40 05/18/18 05:40 PT 14.0 SECONDS (9.4-12.5) H 05/15/18 20:43 INR 1.26 05/15/18 20:43 APTT 30.5 Seconds (26.9-38.3) 05/15/18 20:43 Attending/Attestation - Attestation I have personally seen and examined this patient.: Yes I have fully participated in the care of the patient.: Yes I have reviewed all pertinent clinical information, including history, physical exam and plan: Yes
--- NOTE | 2018-05-08 07:51 | CP.CCUPN ---
<Haley Mckeon - Last Filed: 05/08/18 10:28> CCU Subjective - Physician Review Subjective (Free Text): Haley Mckeon, PGY-1, ICU Progress Note for Dr. Aguilera Patient seen and evaluated at bedside. Patient is currently intubated and sedated with vent settings of 400/18/10/50%. CCU Objective - Vital Signs / Intake & Output Vital Signs (Last 4 hours): Vital Signs Temp Pulse Resp BP Pulse Ox 05/08/18 06:00 93 H 05/08/18 05:00 98.5 F 98 H 18 97/56 L 100 Intake and Output (Last 8hrs): Intake & Output 05/07/18 05/08/18 05/08/18 22:59 06:59 14:59 Intake Total 730 546 Output Total 1350 725 Balance -620 -179 Intake: IV 630 426 Left Hand 76 Right Subclavian 500 350 Tube Feeding 120 Other 100 Output: Urine 1350 725 Urethral (Yang) 1350 725 Stool 0 - Physical Exam Head: Positive for: Atraumatic, Normocephalic Pupils: Positive for: PERRL Extroacular Muscles: Positive for: EOMI Conjunctiva: Positive for: Normal Mouth: Positive for: Moist Mucous Membranes Neck: Positive for: Normal Range of Motion Respiratory/Chest: Positive for: Clear to Auscultation, Good Air Exchange, Other (currently on ventilator). Negative for: Respiratory Distress, Accessory Muscle Use Cardiovascular: Positive for: Normal S1, S2, Irregular Rhythm, Tachycardic. Negative for: Murmurs Abdomen: Negative for: Tenderness, Distention, Peritoneal Signs Back: Positive for: Normal Inspection Upper Extremity: Positive for: Normal Inspection. Negative for: Cyanosis, Edema Lower Extremity: Positive for: Normal Inspection. Negative for: Edema Neurological: Positive for: CN II-XII Intact, Speech Normal, Other (intubated) Skin: Positive for: Warm, Dry, Normal Color, Other (R IJ central port noted). Negative for: Rashes Psychiatric: Positive for: Alert, Oriented x 3, Normal Insight, Normal Concentration - Medications Active Medications: Active Medications Generic Name Dose Route Start Last Admin Trade Name Freq PRN Reason Stop Dose Admin Acetaminophen 650 mg 05/04/18 09:27 Tylenol 325mg Tab PO Q6H PRN Pain, Mild (1-3) Acetylcysteine 4 ml 04/29/18 20:00 05/07/18 20:30 Acetylcysteine 20% IH 4 ml BIDRESP ZARI Administration Apixaban 5 mg 04/27/18 10:00 05/06/18 18:44 Eliquis PO 5 mg BID ZARI Administration Protocol Aspirin 300 mg 05/08/18 10:00 Aspirin Supp RC DAILY ZARI Benzonatate 100 mg 04/26/18 22:48 05/05/18 04:09 Tessalon Perles PO 100 mg TID PRN Administration Cough Budesonide 0.5 mg 04/27/18 20:00 05/07/18 20:30 Pulmicort Respules IH 0.5 mg [id number] ZARI Administration Diltiazem HCl 120 mg 04/27/18 10:00 05/07/18 11:16 Cardizem Cd PO Not Given DAILY ZARI Enoxaparin Sodium 60 mg 05/07/18 10:15 05/07/18 22:16 Lovenox SC 60 mg Q12H ZARI Administration Protocol Furosemide 40 mg 05/08/18 10:00 Lasix IV DAILY [facility] Guaifenesin/Dextromethorphan 5 ml 04/26/18 22:53 05/05/18 04:09 Robitussin Dm PO 5 ml Q4H PRN Administration Cough Meropenem 1 gm in 50 mls @ 100 mls/hr 05/05/18 15:15 05/08/18 05:22 Merrem Iv 1 Gm Premix IVPB 100 mls/hr Q8 ZARI Administration Protocol Vancomycin HCl 1 gm in 250 mls @ 167 mls/hr 05/05/18 15:15 05/08/18 03:43 Vancomycin 1gm IVPB 167 mls/hr Q12H ZARI Administration Protocol Propofol 1,000 mg in 100 mls @ 2.15 mls/hr 05/05/18 15:24 05/07/18 22:11 Diprivan IV 5 mcg/kg/min .Q24H PRN 2.15 mls/hr TITRATE PER MD ORDER Titration Protocol 5 MCG/KG/MIN Midazolam 100 mg/100ml in NS 100 mg in 100 mls @ 1 mls/hr 05/05/18 15:32 05/07/18 17:38 Midazolam 100 Mg/100ml In Ns IV 3 mg/hr .Q24H PRN 3 mls/hr Sedation Administration Protocol 1 MG/HR Sodium Chloride 1,000 mls @ 100 mls/hr 05/06/18 20:42 05/06/18 20:30 Sodium Chloride 0.9% IV 100 mls/hr .Q10H ZARI Administration Insulin Human Lispro 0 units 05/07/18 11:30 05/07/18 22:16 Humalog Med SC Not Given ACHS [facility] Protocol Levalbuterol HCl 0.63 mg 04/27/18 12:16 05/08/18 03:00 Xopenex IH 0.63 mg [id number] PRN Administration Shortness of Breath Levalbuterol HCl 0.63 mg 04/28/18 20:00 05/07/18 20:30 Xopenex IH 0.63 mg TIDRESP ZARI Administration Methylprednisolone 40 mg 05/07/18 10:15 05/07/18 22:19 Solu-Medrol IVP 40 mg Q12 ZARI Administration Morphine Sulfate 2 mg 05/06/18 12:03 05/07/18 02:25 Morphine IVP 2 mg Q4H PRN Administration Pain, severe (8-10) Nitroglycerin 0.5 ea 05/07/18 09:30 05/08/18 03:32 Nitro-Bid 2% Oint TOP 0.5 ea Q6H ZARI Administration Melatonin [Melatonin 10 mg 04/26/18 22:00 05/07/18 22:17 ] 10 Mg (Home Med) PO Not Given HS ZARI Nystatin 5 ml 05/01/18 14:00 05/07/18 22:19 Nystatin Oral Susp PO 5 ml QID ZARI Administration Pantoprazole Sodium 40 mg 05/02/18 21:00 05/08/18 05:00 Protonix Ec Tab PO 40 mg 0600 ZARI Administration Sotalol HCl 40 mg 05/07/18 18:00 05/07/18 20:31 Betapace PO 40 mg BID ZARI Administration Tramadol HCl 50 mg 05/04/18 09:27 05/05/18 04:09 Ultram PO 50 mg Q8H PRN Administration Pain, moderate (4-7) - Patient Studies Lab Studies: Microbiology Studies 05/05/18 15:30 Blood Culture - Preliminary Blood-Venous NO GROWTH AFTER 48 HOURS 05/05/18 16:00 Blood Culture - Preliminary Blood-Venous NO GROWTH AFTER 48 HOURS Lab Studies 05/08/18 05/08/18 05/08/18 Range/Units 06:30 05:40 05:40 WBC 13.7 H (4.5-11.0) 10^3/uL RBC 3.18 L (3.5-6.1) 10^6/uL Hgb 9.2 L (14.0-18.0) g/dL Hct 30.3 L (42.0-52.0) % MCV 95.3 D (80.0-105.0) fl MCH 28.9 (25.0-35.0) pg MCHC 30.4 L (31.0-37.0) g/dl RDW 17.9 H (11.5-14.5) % Plt Count 84 L (120.0-450.0) 10^3/uL MPV 10.3 (7.0-11.0) fl Gran % 94.3 H (50.0-68.0) % Lymph % (Auto) 3.2 L (22.0-35.0) % [place] % (Auto) 2.5 (1.0-6.0) % Eos % (Auto) 0.0 L (1.5-5.0) % Baso % (Auto) 0.0 (0.0-3.0) % Gran # 12.89 H (1.4-6.5) Lymph # (Auto) 0.4 L (1.2-3.4) [place] # (Auto) 0.3 (0.1-0.6) Eos # (Auto) 0.0 (0.0-0.7) Baso # (Auto) 0.00 (0.0-2.0) K/mm3 Neutrophils % (Manual) (50.0-70.0) % Band Neutrophils % (0-2) % Lymphocytes % (Manual) Monocytes % (Manual) (1.0-6.0) % Platelet Evaluation (NORMAL) pCO2 45 (35-45) mm/Hg pO2 238.0 H (80-100) mm/Hg HCO3 24.3 (21-28) mmol/L ABG pH 7.34 L (7.35-7.45) ABG Total CO2 25.7 (22-28) mmol.L ABG O2 Saturation 100.0 H (95-98) % ABG O2 Content 13.2 L (15-23) ML/dl ABG Base Excess -1.5 (-2.0-3.0) mmol/L ABG Hemoglobin 9.3 L (11.7-17.4) g/dL ABG Carboxyhemoglobin 2.3 H (0.5-1.5) % POC ABG HHb (Measured) 0 (0-5) % ABG Methemoglobin 1.2 (0.0-3.0) % ABG O2 Capacity 13.2 L (16-24) mL/dl Hgb O2 Saturation 96.5 (95.0-98.0) % FiO2 100.0 % POC Glucose (mg/dL) (65-110) mg/dL Troponin I ng/mL TSH 3rd Generation 0.32 L (0.46-4.68) mIU/mL 05/07/18 05/07/18 05/07/18 Range/Units 21:55 16:11 13:41 WBC (4.5-11.0) 10^3/uL RBC (3.5-6.1) 10^6/uL Hgb (14.0-18.0) g/dL Hct (42.0-52.0) % MCV (80.0-105.0) fl MCH (25.0-35.0) pg MCHC (31.0-37.0) g/dl RDW (11.5-14.5) % Plt Count (120.0-450.0) 10^3/uL MPV (7.0-11.0) fl Gran % (50.0-68.0) % Lymph % (Auto) (22.0-35.0) % [place] % (Auto) (1.0-6.0) % Eos % (Auto) (1.5-5.0) % Baso % (Auto) (0.0-3.0) % Gran # (1.4-6.5) Lymph # (Auto) (1.2-3.4) [place] # (Auto) (0.1-0.6) Eos # (Auto) (0.0-0.7) Baso # (Auto) (0.0-2.0) K/mm3 Neutrophils % (Manual) (50.0-70.0) % Band Neutrophils % (0-2) % Lymphocytes % (Manual) Monocytes % (Manual) (1.0-6.0) % Platelet Evaluation (NORMAL) pCO2 (35-45) mm/Hg pO2 (80-100) mm/Hg HCO3 (21-28) mmol/L ABG pH (7.35-7.45) ABG Total CO2 (22-28) mmol.L ABG O2 Saturation (95-98) % ABG O2 Content (15-23) ML/dl ABG Base Excess (-2.0-3.0) mmol/L ABG Hemoglobin (11.7-17.4) g/dL ABG Carboxyhemoglobin (0.5-1.5) % POC ABG HHb (Measured) (0-5) % ABG Methemoglobin (0.0-3.0) % ABG O2 Capacity (16-24) mL/dl Hgb O2 Saturation (95.0-98.0) % FiO2 % POC Glucose (mg/dL) 179 H 136 H 169 H (65-110) mg/dL Troponin I ng/mL TSH 3rd Generation (0.46-4.68) mIU/mL 05/07/18 05/07/18 05/07/18 Range/Units 12:25 06:00 06:00 WBC (4.5-11.0) 10^3/uL RBC (3.5-6.1) 10^6/uL Hgb (14.0-18.0) g/dL Hct (42.0-52.0) % MCV (80.0-105.0) fl MCH (25.0-35.0) pg MCHC (31.0-37.0) g/dl RDW (11.5-14.5) % Plt Count (120.0-450.0) 10^3/uL MPV (7.0-11.0) fl Gran % (50.0-68.0) % Lymph % (Auto) (22.0-35.0) % [place] % (Auto) (1.0-6.0) % Eos % (Auto) (1.5-5.0) % Baso % (Auto) (0.0-3.0) % Gran # (1.4-6.5) Lymph # (Auto) (1.2-3.4) [place] # (Auto) (0.1-0.6) Eos # (Auto) (0.0-0.7) Baso # (Auto) (0.0-2.0) K/mm3 Neutrophils % (Manual) 97 H (50.0-70.0) % Band Neutrophils % 1 (0-2) % Lymphocytes % (Manual) TEST NOT PERFORMED Monocytes % (Manual) 2 (1.0-6.0) % Platelet Evaluation Low (NORMAL) pCO2 39 (35-45) mm/Hg pO2 63.0 L (80-100) mm/Hg HCO3 22.0 (21-28) mmol/L ABG pH 7.36 (7.35-7.45) ABG Total CO2 23.2 (22-28) mmol.L ABG O2 Saturation 93.8 L (95-98) % ABG O2 Content 12.2 L (15-23) ML/dl ABG Base Excess -3.2 L (-2.0-3.0) mmol/L ABG Hemoglobin 9.5 L (11.7-17.4) g/dL ABG Carboxyhemoglobin 2.6 H (0.5-1.5) % POC ABG HHb (Measured) 6.0 H (0-5) % ABG Methemoglobin 0.6 (0.0-3.0) % ABG O2 Capacity 13.0 L (16-24) mL/dl Hgb O2 Saturation 90.9 L (95.0-98.0) % FiO2 100.0 % POC Glucose (mg/dL) (65-110) mg/dL Troponin I 6.33 H* D ng/mL TSH 3rd Generation (0.46-4.68) mIU/mL Laboratory Results - last 24 hr 05/07/18 05/07/18 05/07/18 06:00 06:00 12:25 WBC RBC Hgb Hct MCV MCH MCHC RDW Plt Count MPV Gran % Lymph % (Auto) [place] % (Auto) Eos % (Auto) Baso % (Auto) Gran # Lymph # (Auto) [place] # (Auto) Eos # (Auto) Baso # (Auto) Neutrophils % (Manual) 97 H Band Neutrophils % 1 Lymphocytes % (Manual) TEST NOT PERFORMED Monocytes % (Manual) 2 Platelet Evaluation Low pCO2 39 pO2 63.0 L HCO3 22.0 ABG pH 7.36 ABG Total CO2 23.2 ABG O2 Saturation 93.8 L ABG O2 Content 12.2 L ABG Base Excess -3.2 L ABG Hemoglobin 9.5 L ABG Carboxyhemoglobin 2.6 H POC ABG HHb (Measured) 6.0 H ABG Methemoglobin 0.6 ABG O2 Capacity 13.0 L Hgb O2 Saturation 90.9 L FiO2 100.0 POC Glucose (mg/dL) Troponin I 6.33 H* D TSH 3rd Generation 05/07/18 05/07/18 05/07/18 13:41 16:11 21:55 WBC RBC Hgb Hct MCV MCH MCHC RDW Plt Count MPV Gran % Lymph % (Auto) [place] % (Auto) Eos % (Auto) Baso % (Auto) Gran # Lymph # (Auto) [place] # (Auto) Eos # (Auto) Baso # (Auto) Neutrophils % (Manual) Band Neutrophils % Lymphocytes % (Manual) Monocytes % (Manual) Platelet Evaluation pCO2 pO2 HCO3 ABG pH ABG Total CO2 ABG O2 Saturation ABG O2 Content ABG Base Excess ABG Hemoglobin ABG Carboxyhemoglobin POC ABG HHb (Measured) ABG Methemoglobin ABG O2 Capacity Hgb O2 Saturation FiO2 POC Glucose (mg/dL) 169 H 136 H 179 H Troponin I TSH 3rd Generation 05/08/18 05/08/18 05/08/18 05:40 05:40 06:30 WBC 13.7 H RBC 3.18 L Hgb 9.2 L Hct 30.3 L MCV 95.3 D MCH 28.9 MCHC 30.4 L RDW 17.9 H Plt Count 84 L MPV 10.3 Gran % 94.3 H Lymph % (Auto) 3.2 L [place] % (Auto) 2.5 Eos % (Auto) 0.0 L Baso % (Auto) 0.0 Gran # 12.89 H Lymph # (Auto) 0.4 L [place] # (Auto) 0.3 Eos # (Auto) 0.0 Baso # (Auto) 0.00 Neutrophils % (Manual) Band Neutrophils % Lymphocytes % (Manual) Monocytes % (Manual) Platelet Evaluation pCO2 45 pO2 238.0 H HCO3 24.3 ABG pH 7.34 L ABG Total CO2 25.7 ABG O2 Saturation 100.0 H ABG O2 Content 13.2 L ABG Base Excess -1.5 ABG Hemoglobin 9.3 L ABG Carboxyhemoglobin 2.3 H POC ABG HHb (Measured) 0 ABG Methemoglobin 1.2 ABG O2 Capacity 13.2 L Hgb O2 Saturation 96.5 FiO2 100.0 POC Glucose (mg/dL) Troponin I TSH 3rd Generation 0.32 L Radiology Impressions: Radiology Impressions Extremity Ultrasound 05/06/18 13:41 IMPRESSION: No sonographic evidence for deep venous thrombosis in the visualized segments of both lower extremities. Chest X-Ray 05/07/18 06:46 IMPRESSION: Diffuse alveolar infiltrate unchanged. Endotracheal tube and nasogastric tube unchanged Chest X-Ray 05/08/18 06:00 IMPRESSION: There is an increasing diffuse alveolar infiltrate most consistent with pulmonary edema. Pneumonia cannot be excluded. Central lines and tubes are unchanged EKG/Cardiology Studies: Cardiology / EKG Studies 05/07/18 13:03 EKG [ELECTROCARDIOGRAM] Stat Comment: Reason For Exam: svt 05/08/18 07:00 ELECTROCARDIOGRAM Routine Comment: Reason For Exam: CAD PRE OP:: N Does Patient Have a Pacemaker?: No Fingerstick Blood Sugar Results: 179 Review of Systems - Review of Systems Systems not reviewed;Unavailable: Intubated Critical Care Progress Note - Ventilator Checklist Head of Bed 30 Degrees: Yes PUD Prophalyxis: Yes DVT Prophylaxis: Yes - Vent Settings MODE:: PRVC TIDAL VOLUME:: 450 RESP RATE:: 14 FIO2:: 60 PEEP:: 12 - Nutrition Nutrition: Nutrition Category Date Time Status NPO Diet [DIET] Diets 05/06/18 Breakfast Ordered Assessment/Plan - Assessment and Plan (Free Text) Assessment: 77 year old male with past medical history of 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 Patient was diagnosed with sepsis 2/2 to HCAP. On 05/05, patient became hypoxia and was in respiratory distress. Patient was intubated and sedated with propofol and versed. Plan: Neuro: Status post intubation -Intubated and sedated with propofol. Versed discontinued due to elevated LFTs Cardio: NSTEMI -EKG 05/07: atrial fibrillation with RVR with HR: 140 -Troponin: 10.9, 9.66, 8.96, 6.33 -Continue Aspirin 300 mg rectally -Continue Lovenox 60 mg Q12 -Continue Betapace 40 mg BID Atrial fibrillation -EKG: atrial fibrillation with RVR with PVC with HR: 140 -Troponin: 10.9, 9.66, 8.96, 6.33 -Continue Sotalol 40 mg PO BID -Continue Lovenox 60 mg Q12 -Cardizem 120 mg PO daily held -Eliquis 5 mg BID held -Maintain MAP>65. -Monitor for S/S, HD compromise. Elevated BNP -BNP: 3240 -Echocardiogram 05/07: EF: 49.3%, trace AR, MR, RVSP: 50 -Likely diastolic congestive heart failure -Continue Sotalol 40 mg PO BID -Lasix 40 mg BID Pulm: Hypoxic respiratory failure 2/2 to ARDS from small cell lung carcinoma -Patient intubated and sedated with settings 400/18/10/50%. -Maintain O2 saturation>92%. -ABG 05/08: pH: 7.34, pO2: 238, pCO2: 45 -O2 saturation decreased after pO2 was found to be increased on ABG -Daily ABG and CXR -Weaning and sedation trials daily -Elevate bed to 30 degrees -Oral protective hygiene daily -Conservative fluid management continued COPD -Continue with prednisone 40 mg Q12, pulmicort 0.5 mg IH Q12, and xopenex 0.63 mg IH TID Multifocal pneumonia -CXR 05/07: extensive bilateral pulmonary opacities. worsened from yesterday -Chest CT 04/27: multifocal pneumonia -Continue with vancomycin 1 gm Q12 and merrem 1 gm Q8 day 4 GI: Elevated LFTs -Likely due to congestive hepatopathy -Continue to trend via CMP Diet -NPO. -Currently getting Jevity tube feedings with starting rate at 20 cc/hr and will increase by 10 cc/hr up to goal rate of 60 cc/hr GI prophylaxis -Protonix 40 mg daily /Nephro: -BUN/Cr stable at 25/0.6 -Yang in place with sufficient output -Continue monitoring. -Replete electrolytes as needed. -Maintain euvolemia. Endocrinology: -Random glucose: 145 -Medium dose sliding scale insulin -Maintain euglycemia. Heme/Onc: -H/H stable at 9.2/30.3 -No signs of HD compromise. -Continue monitoring H/H DVT prophylaxis -Eliquis 5 mg BID currently held -Lovenox 60 mg Q12 as therapeutic anticoagulation for NSTEMI Elevated D-dimer -D-dimer elevated at 6149 likely due to metastasis -Bilateral lower extremity ultrasound was negative for DVT -Follow up results of CTA to rule out PE ID: Multifocal pneumonia -CXR 05/08: extensive bilateral pulmonary opacities. worsened from previous CXR -Chest CT 04/27: multifocal pneumonia -Afebrile, leukocytosis improved to 13.7 from 15.5 -Blood culture was negative for 5 days upon admission. Blood culture reordered was negative for 24 hours -Follow up sputum culture -Procal 05/05: 0.55 -Vancomycin 1 gm Q12 day 4 -Merrem 1 gm Q8 day 4 -Nystatin 5 mg QID -Monitor for signs and symptoms of infection. Patient seen and examined with Dr. Aguilera. - Date & Time Date: 05/08/18 Time: 07:52 <Fausto Aguilera - Last Filed: 05/08/18 12:08> CCU Objective - Vital Signs / Intake & Output Vital Signs (Last 4 hours): Vital Signs Pulse BP 05/08/18 10:44 102 H 125/71 05/08/18 09:35 150 H 05/08/18 09:18 140 H 99/61 L 05/08/18 08:31 105/64 Intake and Output (Last 8hrs): Intake & Output 05/07/18 05/08/18 05/08/18 22:59 06:59 14:59 Intake Total 730 546 7 Output Total 1350 725 Balance -620 -179 7 Intake: IV 630 426 7 Left Hand 76 Right Subclavian 500 350 Tube Feeding 120 Other 100 Output: Urine 1350 725 Urethral (Yang) 1350 725 Stool 0 - Medications Active Medications: Active Medications Generic Name Dose Route Start Last Admin Trade Name Freq PRN Reason Stop Dose Admin Acetaminophen 650 mg 05/04/18 09:27 Tylenol 325mg Tab PO Q6H PRN Pain, Mild (1-3) Acetylcysteine 4 ml 04/29/18 20:00 05/08/18 07:56 Acetylcysteine 20% IH 4 ml BIDRESP ZARI Administration Apixaban 5 mg 04/27/18 10:00 05/06/18 18:44 Eliquis PO 5 mg BID ZARI Administration Protocol Aspirin 300 mg 05/08/18 10:00 05/08/18 10:55 Aspirin Supp RC 300 mg DAILY [facility]I Administration Benzonatate 100 mg 04/26/18 22:48 05/05/18 04:09 Tessalon Perles PO 100 mg TID PRN Administration Cough Budesonide 0.5 mg 04/27/18 20:00 05/08/18 07:57 Pulmicort Respules IH 0.5 mg [id number] ZARI Administration Diltiazem HCl 120 mg 04/27/18 10:00 05/07/18 11:16 Cardizem Cd PO Not Given DAILY [facility] Enoxaparin Sodium 60 mg 05/07/18 10:15 05/08/18 11:14 Lovenox SC 60 mg Q12H ZARI Administration Protocol Furosemide 40 mg 05/08/18 10:00 05/08/18 08:31 Lasix IV 40 mg BID ZARI Administration Guaifenesin/Dextromethorphan 5 ml 04/26/18 22:53 05/05/18 04:09 Robitussin Dm PO 5 ml Q4H PRN Administration Cough Meropenem 1 gm in 50 mls @ 100 mls/hr 05/05/18 15:15 05/08/18 05:22 Merrem Iv 1 Gm Premix IVPB 100 mls/hr Q8 ZARI Administration Protocol Vancomycin HCl 1 gm in 250 mls @ 167 mls/hr 05/05/18 15:15 05/08/18 03:43 Vancomycin 1gm IVPB 167 mls/hr Q12H [facility]ARI Administration Protocol Propofol 1,000 mg in 100 mls @ 2.15 mls/hr 05/05/18 15:24 05/08/18 11:02 Diprivan IV 10 mcg/kg/min .Q24H PRN 4.3 mls/hr TITRATE PER MD ORDER Titration Protocol 5 MCG/KG/MIN Sodium Chloride 1,000 mls @ 100 mls/hr 05/06/18 20:42 05/06/18 20:30 Sodium Chloride 0.9% IV 100 mls/hr .Q10H [facility]I Administration Insulin Human Lispro 0 units 05/07/18 11:30 05/08/18 08:46 Humalog Med SC 1 u ACHS [facility] Administration Protocol Levalbuterol HCl 0.63 mg 04/27/18 12:16 05/08/18 03:00 Xopenex IH 0.63 mg [id number] PRN Administration Shortness of Breath Levalbuterol HCl 0.63 mg 04/28/18 20:00 05/08/18 07:56 Xopenex IH 0.63 mg TIDRESP ZARI Administration Methylprednisolone 40 mg 05/07/18 10:15 05/08/18 09:19 Solu-Medrol IVP 40 mg Q12 ZARI Administration Morphine Sulfate 2 mg 05/06/18 12:03 05/07/18 02:25 Morphine IVP 2 mg Q4H PRN Administration Pain, severe (8-10) Nitroglycerin 0.5 ea 05/07/18 09:30 05/08/18 11:07 Nitro-Bid 2% Oint TOP Not Given Q6H [facility] Nystatin 5 ml 05/01/18 14:00 05/08/18 09:19 Nystatin Oral Susp PO 5 ml QID [facility] Administration Pantoprazole Sodium 40 mg 05/02/18 21:00 05/08/18 05:00 Protonix Ec Tab PO 40 mg 0600 [facility] Administration Sotalol HCl 80 mg 05/08/18 09:56 05/08/18 09:35 Betapace PO 80 mg BID [facility] Administration Tramadol HCl 50 mg 05/04/18 09:27 05/05/18 04:09 Ultram PO 50 mg Q8H PRN Administration Pain, moderate (4-7) - Patient Studies Lab Studies: Microbiology Studies 05/05/18 15:30 Blood Culture - Preliminary Blood-Venous NO GROWTH AFTER 48 HOURS 05/05/18 16:00 Blood Culture - Preliminary Blood-Venous NO GROWTH AFTER 48 HOURS Lab Studies 05/08/18 05/08/18 05/08/18 Range/Units 11:27 07:21 06:30 WBC (4.5-11.0) 10^3/uL RBC (3.5-6.1) 10^6/uL Hgb (14.0-18.0) g/dL Hct (42.0-52.0) % MCV (80.0-105.0) fl MCH (25.0-35.0) pg MCHC (31.0-37.0) g/dl RDW (11.5-14.5) % Plt Count (120.0-450.0) 10^3/uL MPV (7.0-11.0) fl Gran % (50.0-68.0) % Lymph % (Auto) (22.0-35.0) % [place] % (Auto) (1.0-6.0) % Eos % (Auto) (1.5-5.0) % Baso % (Auto) (0.0-3.0) % Gran # (1.4-6.5) Lymph # (Auto) (1.2-3.4) [place] # (Auto) (0.1-0.6) Eos # (Auto) (0.0-0.7) Baso # (Auto) (0.0-2.0) K/mm3 pCO2 45 (35-45) mm/Hg pO2 238.0 H (80-100) mm/Hg HCO3 24.3 (21-28) mmol/L ABG pH 7.34 L (7.35-7.45) ABG Total CO2 25.7 (22-28) mmol.L ABG O2 Saturation 100.0 H (95-98) % ABG O2 Content 13.2 L (15-23) ML/dl ABG Base Excess -1.5 (-2.0-3.0) mmol/L ABG Hemoglobin 9.3 L (11.7-17.4) g/dL ABG Carboxyhemoglobin 2.3 H (0.5-1.5) % POC ABG HHb (Measured) 0 (0-5) % ABG Methemoglobin 1.2 (0.0-3.0) % ABG O2 Capacity 13.2 L (16-24) mL/dl Hgb O2 Saturation 96.5 (95.0-98.0) % FiO2 100.0 % Sodium (132-148) mmol/L Potassium (3.6-5.0) mmol/L Chloride (98-107) mmol/L Carbon Dioxide (21-33) mmol/L Anion Gap (10-20) BUN (7-21) mg/dL Creatinine (0.8-1.5) mg/dl Est GFR ( Amer) Est GFR (Non-Af Amer) POC Glucose (mg/dL) 247 H 174 H (65-110) mg/dL Random Glucose (70-110) mg/dL Calcium (8.4-10.5) mg/dL Phosphorus (2.5-4.5) mg/dL Magnesium (1.7-2.2) mg/dL Total Bilirubin (0.2-1.3) mg/dL AST (17-59) U/L ALT (7-56) U/L Alkaline Phosphatase (38-126) U/L Lactate Dehydrogenase (333-699) U/L Total Creatine Kinase (35-230) U/L CK-MB (CK-2) (0.0-3.6) ng/mL CK-MB (CK-2) % (2.5-3.0) % Troponin I ng/mL Total Protein (5.8-8.3) g/dL Albumin (3.0-4.8) g/dL Globulin gm/dL Albumin/Globulin Ratio (1.1-1.8) TSH 3rd Generation (0.46-4.68) mIU/mL 05/08/18 05/08/18 05/08/18 Range/Units 05:40 05:40 05:40 WBC 13.7 H (4.5-11.0) 10^3/uL RBC 3.18 L (3.5-6.1) 10^6/uL Hgb 9.2 L (14.0-18.0) g/dL Hct 30.3 L (42.0-52.0) % MCV 95.3 D (80.0-105.0) fl MCH 28.9 (25.0-35.0) pg MCHC 30.4 L (31.0-37.0) g/dl RDW 17.9 H (11.5-14.5) % Plt Count 84 L (120.0-450.0) 10^3/uL MPV 10.3 (7.0-11.0) fl Gran % 94.3 H (50.0-68.0) % Lymph % (Auto) 3.2 L (22.0-35.0) % [place] % (Auto) 2.5 (1.0-6.0) % Eos % (Auto) 0.0 L (1.5-5.0) % Baso % (Auto) 0.0 (0.0-3.0) % Gran # 12.89 H (1.4-6.5) Lymph # (Auto) 0.4 L (1.2-3.4) [place] # (Auto) 0.3 (0.1-0.6) Eos # (Auto) 0.0 (0.0-0.7) Baso # (Auto) 0.00 (0.0-2.0) K/mm3 pCO2 (35-45) mm/Hg pO2 (80-100) mm/Hg HCO3 (21-28) mmol/L ABG pH (7.35-7.45) ABG Total CO2 (22-28) mmol.L ABG O2 Saturation (95-98) % ABG O2 Content (15-23) ML/dl ABG Base Excess (-2.0-3.0) mmol/L ABG Hemoglobin (11.7-17.4) g/dL ABG Carboxyhemoglobin (0.5-1.5) % POC ABG HHb (Measured) (0-5) % ABG Methemoglobin (0.0-3.0) % ABG O2 Capacity (16-24) mL/dl Hgb O2 Saturation (95.0-98.0) % FiO2 % Sodium 138 (132-148) mmol/L Potassium 4.2 (3.6-5.0) mmol/L Chloride 108 H (98-107) mmol/L Carbon Dioxide 27 (21-33) mmol/L Anion Gap 7 L (10-20) BUN 28 H (7-21) mg/dL Creatinine 0.9 (0.8-1.5) mg/dl Est GFR ( Amer) > 60 Est GFR (Non-Af Amer) > 60 POC Glucose (mg/dL) (65-110) mg/dL Random Glucose 155 H (70-110) mg/dL Calcium 7.4 L (8.4-10.5) mg/dL Phosphorus 2.9 (2.5-4.5) mg/dL Magnesium 2.4 H (1.7-2.2) mg/dL Total Bilirubin 0.4 (0.2-1.3) mg/dL AST 152 H D (17-59) U/L ALT 66 H (7-56) U/L Alkaline Phosphatase 112 (38-126) U/L Lactate Dehydrogenase 2094 H (333-699) U/L Total Creatine Kinase 455 H (35-230) U/L CK-MB (CK-2) 90.6 H (0.0-3.6) ng/mL CK-MB (CK-2) % 19.9 H (2.5-3.0) % Troponin I 27.70 H* D ng/mL Total Protein 5.6 L (5.8-8.3) g/dL Albumin 2.4 L (3.0-4.8) g/dL Globulin 3.2 gm/dL Albumin/Globulin Ratio 0.8 L (1.1-1.8) TSH 3rd Generation 0.32 L (0.46-4.68) mIU/mL 05/07/18 05/07/18 05/07/18 Range/Units 21:55 16:11 13:41 WBC (4.5-11.0) 10^3/uL RBC (3.5-6.1) 10^6/uL Hgb (14.0-18.0) g/dL Hct (42.0-52.0) % MCV (80.0-105.0) fl MCH (25.0-35.0) pg MCHC (31.0-37.0) g/dl RDW (11.5-14.5) % Plt Count (120.0-450.0) 10^3/uL MPV (7.0-11.0) fl Gran % (50.0-68.0) % Lymph % (Auto) (22.0-35.0) % [place] % (Auto) (1.0-6.0) % Eos % (Auto) (1.5-5.0) % Baso % (Auto) (0.0-3.0) % Gran # (1.4-6.5) Lymph # (Auto) (1.2-3.4) [place] # (Auto) (0.1-0.6) Eos # (Auto) (0.0-0.7) Baso # (Auto) (0.0-2.0) K/mm3 pCO2 (35-45) mm/Hg pO2 (80-100) mm/Hg HCO3 (21-28) mmol/L ABG pH (7.35-7.45) ABG Total CO2 (22-28) mmol.L ABG O2 Saturation (95-98) % ABG O2 Content (15-23) ML/dl ABG Base Excess (-2.0-3.0) mmol/L ABG Hemoglobin (11.7-17.4) g/dL ABG Carboxyhemoglobin (0.5-1.5) % POC ABG HHb (Measured) (0-5) % ABG Methemoglobin (0.0-3.0) % ABG O2 Capacity (16-24) mL/dl Hgb O2 Saturation (95.0-98.0) % FiO2 % Sodium (132-148) mmol/L Potassium (3.6-5.0) mmol/L Chloride (98-107) mmol/L Carbon Dioxide (21-33) mmol/L Anion Gap (10-20) BUN (7-21) mg/dL Creatinine (0.8-1.5) mg/dl Est GFR ( Amer) Est GFR (Non-Af Amer) POC Glucose (mg/dL) 179 H 136 H 169 H (65-110) mg/dL Random Glucose (70-110) mg/dL Calcium (8.4-10.5) mg/dL Phosphorus (2.5-4.5) mg/dL Magnesium (1.7-2.2) mg/dL Total Bilirubin (0.2-1.3) mg/dL AST (17-59) U/L ALT (7-56) U/L Alkaline Phosphatase (38-126) U/L Lactate Dehydrogenase (333-699) U/L Total Creatine Kinase (35-230) U/L CK-MB (CK-2) (0.0-3.6) ng/mL CK-MB (CK-2) % (2.5-3.0) % Troponin I ng/mL Total Protein (5.8-8.3) g/dL Albumin (3.0-4.8) g/dL Globulin gm/dL Albumin/Globulin Ratio (1.1-1.8) TSH 3rd Generation (0.46-4.68) mIU/mL 05/07/18 Range/Units 12:25 WBC (4.5-11.0) 10^3/uL RBC (3.5-6.1) 10^6/uL Hgb (14.0-18.0) g/dL Hct (42.0-52.0) % MCV (80.0-105.0) fl MCH (25.0-35.0) pg MCHC (31.0-37.0) g/dl RDW (11.5-14.5) % Plt Count (120.0-450.0) 10^3/uL MPV (7.0-11.0) fl Gran % (50.0-68.0) % Lymph % (Auto) (22.0-35.0) % [place] % (Auto) (1.0-6.0) % Eos % (Auto) (1.5-5.0) % Baso % (Auto) (0.0-3.0) % Gran # (1.4-6.5) Lymph # (Auto) (1.2-3.4) [place] # (Auto) (0.1-0.6) Eos # (Auto) (0.0-0.7) Baso # (Auto) (0.0-2.0) K/mm3 pCO2 39 (35-45) mm/Hg pO2 63.0 L (80-100) mm/Hg HCO3 22.0 (21-28) mmol/L ABG pH 7.36 (7.35-7.45) ABG Total CO2 23.2 (22-28) mmol.L ABG O2 Saturation 93.8 L (95-98) % ABG O2 Content 12.2 L (15-23) ML/dl ABG Base Excess -3.2 L (-2.0-3.0) mmol/L ABG Hemoglobin 9.5 L (11.7-17.4) g/dL ABG Carboxyhemoglobin 2.6 H (0.5-1.5) % POC ABG HHb (Measured) 6.0 H (0-5) % ABG Methemoglobin 0.6 (0.0-3.0) % ABG O2 Capacity 13.0 L (16-24) mL/dl Hgb O2 Saturation 90.9 L (95.0-98.0) % FiO2 100.0 % Sodium (132-148) mmol/L Potassium (3.6-5.0) mmol/L Chloride (98-107) mmol/L Carbon Dioxide (21-33) mmol/L Anion Gap (10-20) BUN (7-21) mg/dL Creatinine (0.8-1.5) mg/dl Est GFR ( Amer) Est GFR (Non-Af Amer) POC Glucose (mg/dL) (65-110) mg/dL Random Glucose (70-110) mg/dL Calcium (8.4-10.5) mg/dL Phosphorus (2.5-4.5) mg/dL Magnesium (1.7-2.2) mg/dL Total Bilirubin (0.2-1.3) mg/dL AST (17-59) U/L ALT (7-56) U/L Alkaline Phosphatase (38-126) U/L Lactate Dehydrogenase (333-699) U/L Total Creatine Kinase (35-230) U/L CK-MB (CK-2) (0.0-3.6) ng/mL CK-MB (CK-2) % (2.5-3.0) % Troponin I ng/mL Total Protein (5.8-8.3) g/dL Albumin (3.0-4.8) g/dL Globulin gm/dL Albumin/Globulin Ratio (1.1-1.8) TSH 3rd Generation (0.46-4.68) mIU/mL Laboratory Results - last 24 hr 05/07/18 05/07/18 05/07/18 12:25 13:41 16:11 WBC RBC Hgb Hct MCV MCH MCHC RDW Plt Count MPV Gran % Lymph % (Auto) [place] % (Auto) Eos % (Auto) Baso % (Auto) Gran # Lymph # (Auto) [place] # (Auto) Eos # (Auto) Baso # (Auto) pCO2 39 pO2 63.0 L HCO3 22.0 ABG pH 7.36 ABG Total CO2 23.2 ABG O2 Saturation 93.8 L ABG O2 Content 12.2 L ABG Base Excess -3.2 L ABG Hemoglobin 9.5 L ABG Carboxyhemoglobin 2.6 H POC ABG HHb (Measured) 6.0 H ABG Methemoglobin 0.6 ABG O2 Capacity 13.0 L Hgb O2 Saturation 90.9 L FiO2 100.0 Sodium Potassium Chloride Carbon Dioxide Anion Gap BUN Creatinine Est GFR ( Amer) Est GFR (Non-Af Amer) POC Glucose (mg/dL) 169 H 136 H Random Glucose Calcium Phosphorus Magnesium Total Bilirubin AST ALT Alkaline Phosphatase Lactate Dehydrogenase Total Creatine Kinase CK-MB (CK-2) CK-MB (CK-2) % Troponin I Total Protein Albumin Globulin Albumin/Globulin Ratio TSH 3rd Generation 05/07/18 05/08/18 05/08/18 21:55 05:40 05:40 WBC 13.7 H RBC 3.18 L Hgb 9.2 L Hct 30.3 L MCV 95.3 D MCH 28.9 MCHC 30.4 L RDW 17.9 H Plt Count 84 L MPV 10.3 Gran % 94.3 H Lymph % (Auto) 3.2 L [place] % (Auto) 2.5 Eos % (Auto) 0.0 L Baso % (Auto) 0.0 Gran # 12.89 H Lymph # (Auto) 0.4 L [place] # (Auto) 0.3 Eos # (Auto) 0.0 Baso # (Auto) 0.00 pCO2 pO2 HCO3 ABG pH ABG Total CO2 ABG O2 Saturation ABG O2 Content ABG Base Excess ABG Hemoglobin ABG Carboxyhemoglobin POC ABG HHb (Measured) ABG Methemoglobin ABG O2 Capacity Hgb O2 Saturation FiO2 Sodium 138 Potassium 4.2 Chloride 108 H Carbon Dioxide 27 Anion Gap 7 L BUN 28 H Creatinine 0.9 Est GFR ( Amer) > 60 Est GFR (Non-Af Amer) > 60 POC Glucose (mg/dL) 179 H Random Glucose 155 H Calcium 7.4 L Phosphorus 2.9 Magnesium 2.4 H Total Bilirubin 0.4 AST 152 H D ALT 66 H Alkaline Phosphatase 112 Lactate Dehydrogenase 2094 H Total Creatine Kinase 455 H CK-MB (CK-2) 90.6 H CK-MB (CK-2) % 19.9 H Troponin I 27.70 H* D Total Protein 5.6 L Albumin 2.4 L Globulin 3.2 Albumin/Globulin Ratio 0.8 L TSH 3rd Generation 05/08/18 05/08/18 05/08/18 05:40 06:30 07:21 WBC RBC Hgb Hct MCV MCH MCHC RDW Plt Count MPV Gran % Lymph % (Auto) [place] % (Auto) Eos % (Auto) Baso % (Auto) Gran # Lymph # (Auto) [place] # (Auto) Eos # (Auto) Baso # (Auto) pCO2 45 pO2 238.0 H HCO3 24.3 ABG pH 7.34 L ABG Total CO2 25.7 ABG O2 Saturation 100.0 H ABG O2 Content 13.2 L ABG Base Excess -1.5 ABG Hemoglobin 9.3 L ABG Carboxyhemoglobin 2.3 H POC ABG HHb (Measured) 0 ABG Methemoglobin 1.2 ABG O2 Capacity 13.2 L Hgb O2 Saturation 96.5 FiO2 100.0 Sodium Potassium Chloride Carbon Dioxide Anion Gap BUN Creatinine Est GFR ( Amer) Est GFR (Non-Af Amer) POC Glucose (mg/dL) 174 H Random Glucose Calcium Phosphorus Magnesium Total Bilirubin AST ALT Alkaline Phosphatase Lactate Dehydrogenase Total Creatine Kinase CK-MB (CK-2) CK-MB (CK-2) % Troponin I Total Protein Albumin Globulin Albumin/Globulin Ratio [facility] 3rd Generation 0.32 L 05/08/18 11:27 WBC RBC Hgb Hct MCV MCH MCHC RDW Plt Count MPV Gran % Lymph % (Auto) [place] % (Auto) Eos % (Auto) Baso % (Auto) Gran # Lymph # (Auto) [place] # (Auto) Eos # (Auto) Baso # (Auto) pCO2 pO2 HCO3 ABG pH ABG Total CO2 ABG O2 Saturation ABG O2 Content ABG Base Excess ABG Hemoglobin ABG Carboxyhemoglobin POC ABG HHb (Measured) ABG Methemoglobin ABG O2 Capacity Hgb O2 Saturation FiO2 Sodium Potassium Chloride Carbon Dioxide Anion Gap BUN Creatinine Est GFR ( Amer) Est GFR (Non-Af Amer) POC Glucose (mg/dL) 247 H Random Glucose Calcium Phosphorus Magnesium Total Bilirubin AST ALT Alkaline Phosphatase Lactate Dehydrogenase Total Creatine Kinase CK-MB (CK-2) CK-MB (CK-2) % Troponin I Total Protein Albumin Globulin Albumin/Globulin Ratio [facility] 3rd Generation Radiology Impressions: Radiology Impressions Chest X-Ray 05/08/18 06:00 IMPRESSION: There is an increasing diffuse alveolar infiltrate most consistent with pulmonary edema. Pneumonia cannot be excluded. Central lines and tubes are unchanged EKG/Cardiology Studies: Cardiology / EKG Studies 05/07/18 13:03 EKG [ELECTROCARDIOGRAM] Stat Comment: Reason For Exam: svt 05/08/18 07:00 ELECTROCARDIOGRAM Routine Comment: Reason For Exam: CAD PRE OP:: N Does Patient Have a Pacemaker?: No Critical Care Progress Note - Nutrition Nutrition: Nutrition Category Date Time Status NPO Diet [DIET] Diets 05/06/18 Breakfast Ordered Assessment/Plan - Assessment and Plan (Free Text) Plan: Patient seen and examined on rounds with resident, agree with note with following additions/exceptions: Patient is 77yo male with PMHx of 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, mediastinal hilar adenopathy status post radiation, atrial fibrillation, COPD, insomina, PUD, gastritis admitted with SOB, HCAP, AMS, respiratory failure to MICU Currently intubated, sedated off vasopressor support Patient requiring FiO2 60%, PEEP 12 Labs, imaging, chart reviewed Troponin uptrending today, suspicious for re-infarct; cardiology following, patient on Lovenox, ASA P/F ratio today significantly improved, 238 Respiratory failure, hypoxic HCAP rule out ARDS COPD Small Cell Lung Ca, stage IV Afib Elevated troponin NSTEMI Recommend: - cont with vent support, low tidal vol ventilation 6cc/kg PBW, FiO2 60%, PEEP 12, daily sedation vacation, weaning if possible - Abx as per ID, Merrem, Vanco, Azithro - Lasix 40mg IV BID - ASA, Betapace - Lovenox 1mg/kg BID - monitor LFTs - FS control - GI ppx - DVT ppx, Lovenox - Monitor in MICU FULL CODE Extremely poor prognosis Palliative care consult Critical care time 35 minutes
[2018-05-08] MEDS: Levalbuterol 0.63 MG/3 ML Inhal Soln UD IH SCH ×3 (07:56→20:13)
[2018-05-08] MEDS: Acetylcysteine 20% Inhal Soln (4ml) IH SCH ×2 (07:56→20:12)
[2018-05-08] MEDS: Budesonide 0.5 mg/2 ml Inhal Susp UD IH SCH ×2 (07:57→20:13)
[2018-05-08 08:27] LABS: ALB/GLOB RATIO 0.8 (1.1-1.8); ALBUMIN 2.4 g/dL (3.0-4.8); ALT/SGPT 66 U/L (7-56); AST/SGOT 152 U/L (17-59); BLOOD UREA NITROGEN 28 mg/dL (7-21); CALCIUM 7.4 mg/dL (8.4-10.5)
[2018-05-08 08:40] LABS: GFR NON-AFRICAN AMERICAN > 60
[2018-05-08 08:41] LABS: CK MB% 19.9 % (2.5-3.0); CK-MB 90.6 ng/mL (0.0-3.6)
[2018-05-08] MEDS: Insulin Lispro (humaLOG) MEDIUM Coverage SC SCH ×4 (08:46→22:14)
[2018-05-08] MEDS: Nystatin 100,000 Units/ml Oral Susp 5 ml UD PO SCH ×4 (09:19→22:17)
[2018-05-08] MEDS: MethylPREDNISolone 40 mg Vial IVP SCH ×2 (09:19→22:24)
[2018-05-08] MEDS ORDERED: Metoprolol 1 mg/ml Inj IVP STA (10:17)
[2018-05-08] MEDS: Enoxaparin 60 mg Syringe SC SCH ×2 (11:14→22:16)
--- NOTE | 2018-05-08 11:14 | PN ---
DATE: 05/08/2018 REASON FOR CONSULTATION: Followup status post rapid respiratory failure intubated, elevated troponin, history of lung CA with metastasis, admitted initially with a failure to thrive, pneumonia, now patient is in ICU being intubated. SUBJECTIVE: Patient underwent sedation with propofol and midazolam. OBJECTIVE GENERAL: Not in apparent distress being intubated. VITAL SIGNS: Temperature afebrile, heart rate 93, and blood pressure 105/64. HEENT: PERRLA. Extraocular muscles intact. NECK: Supple. No carotid bruit or thyromegaly. CHEST: Clear to auscultation. HEART: S1 and S2 regular. ABDOMEN: Soft. EXTREMITIES: Clubbing, cyanosis negative. LABORATORY DATA: Blood workup as follows; WBC 13.7, hemoglobin 9.2, hematocrit 30.3, and platelet count 84. Chemistry shows sodium 130, potassium 4.0, chloride 108, carbon dioxide 29, anion gap of 7, BUN 28, and creatinine 0.9. Troponin 27.7 with a CPK 455. IMPRESSION: A 77-year-old male with a past medical history significant for lung cancer with metastasis, admitted with a failure to thrive, went into respiratory distress, intubated, non-ST segment myocardial infarction with maximum troponin trend up to 27.7, pneumonia, sepsis, a small cell lung cancer with mets on chemoradiation, chronic obstructive pulmonary disease, history of paroxysmal atrial fibrillation (chronic before this event), non-ST myocardial infarction, underlying coronary artery disease, ex-smoker, status post rapid response secondary to respiratory failure. Patient had an echocardiography done yesterday that revealed normal chamber size, ejection fraction 55%, trace aortic regurgitation, mild mitral regurgitation, mild to moderate tricuspid regurgitation, systolic pressure 50, mild pulmonary hypertension, no pericardial effusion. Patient had an EKG done yesterday that showed atrial fibrillation with rapid response, mild ST-T changes consistence of subendocardial injury. RECOMMENDATION: Continue gentle diuretics to keep the negative fluid balance, continue sotalol decrease to 40 because of blood pressure and now patient converted to normal sinus, goes back and forth AFib. Continue enoxaparin 1 mg per kg every 12. Overall, patient's condition is critical, long-term prognosis is guarded. Not a candidate for labor trainer for invasive workup. Continue medical treatment aggressive including nitrate, beta-aashish with a nitrate and enoxaparin diuretics. We will follow with you. Thank you, Dr. Bullard for providing us the opportunity in taking care of the patient, Salvador Alvarenga. Overall, patient's condition is critical. Long-term prognosis is extremely guarded. Again, no intervention planned at this time. We will treat medically because underlying comorbidity and overall patient's condition. Aura Orozco MD
--- NOTE | 2018-05-08 12:32 | CP.PCM.PN ---
Subjective - Date & Time of Evaluation Date of Evaluation: 05/08/18 Time of Evaluation: 12:20 - Subjective Subjective: Continues to be intubated and sedated, no fevers overnight. Objective - Vital Signs/Intake and Output Vital Signs (last 24 hours): Temp Pulse Resp BP Pulse Ox 98.5 F 102 H 21 125/71 92 L 05/08/18 05:00 05/08/18 10:44 05/08/18 07:55 05/08/18 10:44 05/08/18 07:55 Intake and Output: 05/08/18 05/08/18 06:59 18:59 Intake Total 556 7 Output Total 725 Balance -169 7 - Medications Medications: Current Medications Acetaminophen (Tylenol 325mg Tab) 650 mg PO Q6H PRN PRN Reason: Pain, Mild (1-3) Acetylcysteine (Acetylcysteine 20%) 4 ml IH BIDRESP [facility] Last Admin: 05/08/18 07:56 Dose: 4 ml Apixaban (Eliquis) 5 mg PO BID [facility]; Protocol Last Admin: 05/06/18 18:44 Dose: 5 mg Aspirin (Aspirin Supp) 300 mg RC DAILY [facility] Last Admin: 05/08/18 10:55 Dose: 300 mg Benzonatate (Tessalon Perles) 100 mg PO TID PRN PRN Reason: Cough Last Admin: 05/05/18 04:09 Dose: 100 mg Budesonide (Pulmicort Respules) 0.5 mg IH [id number] [facility] Last Admin: 05/08/18 07:57 Dose: 0.5 mg Diltiazem HCl (Cardizem Cd) 120 mg PO DAILY [facility] Last Admin: 05/07/18 11:16 Dose: Not Given Enoxaparin Sodium (Lovenox) 60 mg SC Q12H [facility]; Protocol Last Admin: 05/08/18 11:14 Dose: 60 mg Furosemide (Lasix) 40 mg IV BID [facility] Last Admin: 05/08/18 08:31 Dose: 40 mg Guaifenesin/Dextromethorphan (Robitussin Dm) 5 ml PO Q4H PRN PRN Reason: Cough Last Admin: 05/05/18 04:09 Dose: 5 ml Meropenem (Merrem Iv 1 Gm Premix) 1 gm in 50 mls @ 100 mls/hr IVPB Q8 ZARI; Protocol Last Admin: 05/08/18 05:22 Dose: 100 mls/hr Vancomycin HCl (Vancomycin 1gm) 1 gm in 250 mls @ 167 mls/hr IVPB Q12H [facility]; Protocol Last Admin: 05/08/18 03:43 Dose: 167 mls/hr Propofol (Diprivan) 1,000 mg in 100 mls @ 2.15 mls/hr IV .Q24H PRN; Protocol PRN Reason: TITRATE PER MD ORDER Last Titration: 05/08/18 11:02 Dose: 10 mcg/kg/min, 4.3 mls/hr Sodium Chloride (Sodium Chloride 0.9%) 1,000 mls @ 100 mls/hr IV .Q10H [facility] Last Admin: 05/06/18 20:30 Dose: 100 mls/hr Insulin Human Lispro (Humalog Med) 0 units SC ACHS [facility]; Protocol Last Admin: 05/08/18 08:46 Dose: 1 u Levalbuterol HCl (Xopenex) 0.63 mg IH [id number] PRN PRN Reason: Shortness of Breath Last Admin: 05/08/18 03:00 Dose: 0.63 mg Levalbuterol HCl (Xopenex) 0.63 mg IH TIDRESP [facility] Last Admin: 05/08/18 07:56 Dose: 0.63 mg Methylprednisolone (Solu-Medrol) 40 mg IVP Q12 [facility] Last Admin: 05/08/18 09:19 Dose: 40 mg Morphine Sulfate (Morphine) 2 mg IVP Q4H PRN PRN Reason: Pain, severe (8-10) Last Admin: 05/07/18 02:25 Dose: 2 mg Nitroglycerin (Nitro-Bid 2% Oint) 0.5 ea TOP Q6H [facility] Last Admin: 05/08/18 11:07 Dose: Not Given Nystatin (Nystatin Oral Susp) 5 ml PO QID [facility] Last Admin: 05/08/18 09:19 Dose: 5 ml Pantoprazole Sodium (Protonix Ec Tab) 40 mg PO 0600 [facility] Last Admin: 05/08/18 05:00 Dose: 40 mg Sotalol HCl (Betapace) 80 mg PO BID [facility] Last Admin: 05/08/18 09:35 Dose: 80 mg Tramadol HCl (Ultram) 50 mg PO Q8H PRN PRN Reason: Pain, moderate (4-7) Last Admin: 05/05/18 04:09 Dose: 50 mg - Labs Labs: 05/08/18 05:40 05/08/18 05:40 PT 25.7 SECONDS (9.4-12.5) H 05/07/18 06:30 INR 2.20 05/07/18 06:30 APTT 25.5 Seconds (25.1-36.5) 05/07/18 06:30 - Constitutional Appears: Chronically Ill, Other (intubated, sedated) - Head Exam Head Exam: NORMAL INSPECTION - ENT Exam Additional comments: ET tube in place - Respiratory Exam Respiratory Exam: Decreased Breath Sounds Additional comments: right anterior chest wall port in place - Cardiovascular Exam Cardiovascular Exam: +S1, +S2 - GI/Abdominal Exam GI & Abdominal Exam: Soft. absent: Tenderness Assessment and Plan - Assessment and Plan (Free Text) Plan: Assessment new onset hypoxic respiratory failure, now intubated, with SIRS, R/O severe sepsis from hospital-acquired pneumonia on top of worsening lung cancer S/P sepsis due to multifocal HCAP in this patient with stage 4 lung cancer, S/P confusion consider toxic-metabolic encephalopathy small cell lung cancer stage 4 on radiation and chemotherapy COPD atrial fibrillation gastritis Plan continue Vancomycin and Merrem day 3; blood cx are negative so far, follow up sputum cx, PCT; reviewed CXR which continues to show bilateral infiltrates; target 4-7 days overall prognosis is poor
--- NOTE | 2018-05-08 13:19 | CP.PCM.CON ---
History of Present Illness - History of Present Illness History of Present Illness: Palliative consult requested by Dr Li Bullard Reason: Goals of care 77 year old male with history of metastatic SCLC and A Fib who presented to ED on 04/26/18 with failure to thrive, shortness of breath and AMS. Workup revealed sepsis secondary to HCAP. On 05/05 he experienced respiratory distress with hypoxia> RR called. The patient was intubated and transferred to MICU. PMHX:COPD, PUD, metastatic non small cell lung cancer s/p chemo and XRT, A Fib, pneumothorax PSHx:CT guided biopsy, right chest port a cath Social History: Former smoker, no alcohol or drug keira. Lives with family Family History: Non contributory Advance Care Planning: The patient does not have an Advanced directive Review of Systems: Intubated, sedated, unable to obtain Past Patient History - Infectious Disease Hx of Infectious Diseases: None - Tetanus Immunizations Tetanus Immunization: Unknown - Past Social History Smoking Status: Former Smoker - CARDIAC Hx Cardiac Disorders: Yes - PULMONARY Hx Chronic Obstructive Pulmonary Disease (COPD): Yes - NEUROLOGICAL Hx Neurological Disorder: No - HEENT Hx HEENT Problems: Yes (wears eyeglasses) - RENAL Hx Chronic Kidney Disease: No - ENDOCRINE/METABOLIC Hx Endocrine Disorders: No - HEMATOLOGICAL/ONCOLOGICAL Hx Cancer: Yes (lungs, mets to liver; had chemotherapy) - INTEGUMENTARY Hx Dermatological Problems: No - MUSCULOSKELETAL/RHEUMATOLOGICAL Hx Musculoskeletal Disorders: Yes Hx Unsteady Gait: Yes - GASTROINTESTINAL Hx Gastroesophageal Reflux: Yes - GENITOURINARY/GYNECOLOGICAL Hx Genitourinary Disorders: No - PSYCHIATRIC Hx Psychophysiologic Disorder: No Hx Depression: No Hx Emotional Abuse: No Hx Physical Abuse: No - SURGICAL HISTORY Hx Amputation: No - ANESTHESIA Hx Anesthesia: No Hx Anesthesia Reactions: No Hx Malignant Hyperthermia: No Meds Allergies/Adverse Reactions: Allergies Allergy/AdvReac Type Severity Reaction Status Date / Time No Known Allergies Allergy Unverified 11/23/17 21:06 - Medications Medications: Current Medications Acetaminophen (Tylenol 325mg Tab) 650 mg PO Q6H PRN PRN Reason: Pain, Mild (1-3) Acetylcysteine (Acetylcysteine 20%) 4 ml IH BIDRESP ZARI Last Admin: 05/08/18 07:56 Dose: 4 ml Apixaban (Eliquis) 5 mg PO BID ZARI; Protocol Last Admin: 05/06/18 18:44 Dose: 5 mg Aspirin (Aspirin Supp) 300 mg RC DAILY [facility] Last Admin: 05/08/18 10:55 Dose: 300 mg Benzonatate (Tessalon Perles) 100 mg PO TID PRN PRN Reason: Cough Last Admin: 05/05/18 04:09 Dose: 100 mg Budesonide (Pulmicort Respules) 0.5 mg IH [id number] ZARI Last Admin: 05/08/18 07:57 Dose: 0.5 mg Diltiazem HCl (Cardizem Cd) 120 mg PO DAILY [facility] Last Admin: 05/07/18 11:16 Dose: Not Given Enoxaparin Sodium (Lovenox) 60 mg SC Q12H ZARI; Protocol Last Admin: 05/08/18 11:14 Dose: 60 mg Furosemide (Lasix) 40 mg IV BID [facility] Last Admin: 05/08/18 08:31 Dose: 40 mg Guaifenesin/Dextromethorphan (Robitussin Dm) 5 ml PO Q4H PRN PRN Reason: Cough Last Admin: 05/05/18 04:09 Dose: 5 ml Meropenem (Merrem Iv 1 Gm Premix) 1 gm in 50 mls @ 100 mls/hr IVPB Q8 ZARI; Protocol Last Admin: 05/08/18 05:22 Dose: 100 mls/hr Vancomycin HCl (Vancomycin 1gm) 1 gm in 250 mls @ 167 mls/hr IVPB Q12H ZARI; Protocol Last Admin: 05/08/18 03:43 Dose: 167 mls/hr Propofol (Diprivan) 1,000 mg in 100 mls @ 2.15 mls/hr IV .Q24H PRN; Protocol PRN Reason: TITRATE PER MD ORDER Last Titration: 05/08/18 11:02 Dose: 10 mcg/kg/min, 4.3 mls/hr Sodium Chloride (Sodium Chloride 0.9%) 1,000 mls @ 100 mls/hr IV .Q10H [facility] Last Admin: 05/06/18 20:30 Dose: 100 mls/hr Insulin Human Lispro (Humalog Med) 0 units SC ACHS [facility]; Protocol Last Admin: 05/08/18 12:32 Dose: 5 u Levalbuterol HCl (Xopenex) 0.63 mg IH [id number] PRN PRN Reason: Shortness of Breath Last Admin: 05/08/18 03:00 Dose: 0.63 mg Levalbuterol HCl (Xopenex) 0.63 mg IH TIDRESP [facility] Last Admin: 05/08/18 07:56 Dose: 0.63 mg Methylprednisolone (Solu-Medrol) 40 mg IVP Q12 [facility] Last Admin: 05/08/18 09:19 Dose: 40 mg Morphine Sulfate (Morphine) 2 mg IVP Q4H PRN PRN Reason: Pain, severe (8-10) Last Admin: 05/07/18 02:25 Dose: 2 mg Nitroglycerin (Nitro-Bid 2% Oint) 0.5 ea TOP Q6H [facility] Last Admin: 05/08/18 11:07 Dose: Not Given Nystatin (Nystatin Oral Susp) 5 ml PO QID [facility] Last Admin: 05/08/18 09:19 Dose: 5 ml Pantoprazole Sodium (Protonix Ec Tab) 40 mg PO 0600 [facility] Last Admin: 05/08/18 05:00 Dose: 40 mg Sotalol HCl (Betapace) 80 mg PO BID [facility] Last Admin: 05/08/18 09:35 Dose: 80 mg Tramadol HCl (Ultram) 50 mg PO Q8H PRN PRN Reason: Pain, moderate (4-7) Last Admin: 05/05/18 04:09 Dose: 50 mg Physical Exam - Constitutional Appears: Cachectic, Chronically Ill - Head Exam Head Exam: NORMOCEPHALIC - Eye Exam Eye Exam: PERRL - ENT Exam ENT Exam: Mucous Membranes Moist - Respiratory Exam Respiratory Exam: Decreased Breath Sounds - Cardiovascular Exam Cardiovascular Exam: Tachycardia, +S1, +S2 - GI/Abdominal Exam GI & Abdominal Exam: Normal Bowel Sounds, Soft - Skin Skin Exam: Dry, Pallor - Additional Findings Additional findings: palliative performance scale rating 20% Results - Vital Signs Recent Vital Signs: Last Vital Signs Temp 98.5 F 05/08/18 05:00 Pulse 102 H 05/08/18 10:44 Resp 21 05/08/18 07:55 BP 125/71 05/08/18 10:44 Pulse Ox 92 L 05/08/18 07:55 - Labs Result Diagrams: 05/08/18 05:40 05/08/18 05:40 Labs: Laboratory Results - last 24 hr 05/07/18 05/07/18 05/07/18 13:41 16:11 21:55 WBC RBC Hgb Hct MCV MCH MCHC RDW Plt Count MPV Gran % Lymph % (Auto) [place] % (Auto) Eos % (Auto) Baso % (Auto) Gran # Lymph # (Auto) [place] # (Auto) Eos # (Auto) Baso # (Auto) pCO2 pO2 HCO3 ABG pH ABG Total CO2 ABG O2 Saturation ABG O2 Content ABG Base Excess ABG Hemoglobin ABG Carboxyhemoglobin POC ABG HHb (Measured) ABG Methemoglobin ABG O2 Capacity Hgb O2 Saturation FiO2 Sodium Potassium Chloride Carbon Dioxide Anion Gap BUN Creatinine Est GFR ( Amer) Est GFR (Non-Af Amer) POC Glucose (mg/dL) 169 H 136 H 179 H Random Glucose Calcium Phosphorus Magnesium Total Bilirubin AST ALT Alkaline Phosphatase Lactate Dehydrogenase Total Creatine Kinase CK-MB (CK-2) CK-MB (CK-2) % Troponin I Total Protein Albumin Globulin Albumin/Globulin Ratio TSH 3rd Generation 05/08/18 05/08/18 05/08/18 05:40 05:40 05:40 WBC 13.7 H RBC 3.18 L Hgb 9.2 L Hct 30.3 L MCV 95.3 D MCH 28.9 MCHC 30.4 L RDW 17.9 H Plt Count 84 L MPV 10.3 Gran % 94.3 H Lymph % (Auto) 3.2 L Coos % (Auto) 2.5 Eos % (Auto) 0.0 L Baso % (Auto) 0.0 Gran # 12.89 H Lymph # (Auto) 0.4 L [place]os # (Auto) 0.3 Eos # (Auto) 0.0 Baso # (Auto) 0.00 pCO2 pO2 HCO3 ABG pH ABG Total CO2 ABG O2 Saturation ABG O2 Content ABG Base Excess ABG Hemoglobin ABG Carboxyhemoglobin POC ABG HHb (Measured) ABG Methemoglobin ABG O2 Capacity Hgb O2 Saturation FiO2 Sodium 138 Potassium 4.2 Chloride 108 H Carbon Dioxide 27 Anion Gap 7 L BUN 28 H Creatinine 0.9 Est GFR ( Amer) > 60 Est GFR (Non-Af Amer) > 60 POC Glucose (mg/dL) Random Glucose 155 H Calcium 7.4 L Phosphorus 2.9 Magnesium 2.4 H Total Bilirubin 0.4 AST 152 H D ALT 66 H Alkaline Phosphatase 112 Lactate Dehydrogenase 2094 H Total Creatine Kinase 455 H CK-MB (CK-2) 90.6 H CK-MB (CK-2) % 19.9 H Troponin I 27.70 H* D Total Protein 5.6 L Albumin 2.4 L Globulin 3.2 Albumin/Globulin Ratio 0.8 L TSH 3rd Generation 0.32 L 05/08/18 05/08/18 05/08/18 06:30 07:21 11:27 WBC RBC Hgb Hct MCV MCH MCHC RDW Plt Count MPV Gran % Lymph % (Auto) Coos % (Auto) Eos % (Auto) Baso % (Auto) Gran # Lymph # (Auto) [place]os # (Auto) Eos # (Auto) Baso # (Auto) pCO2 45 pO2 238.0 H HCO3 24.3 ABG pH 7.34 L ABG Total CO2 25.7 ABG O2 Saturation 100.0 H ABG O2 Content 13.2 L ABG Base Excess -1.5 ABG Hemoglobin 9.3 L ABG Carboxyhemoglobin 2.3 H POC ABG HHb (Measured) 0 ABG Methemoglobin 1.2 ABG O2 Capacity 13.2 L Hgb O2 Saturation 96.5 FiO2 100.0 Sodium Potassium Chloride Carbon Dioxide Anion Gap BUN Creatinine Est GFR ( Amer) Est GFR (Non-Af Amer) POC Glucose (mg/dL) 174 H 247 H Random Glucose Calcium Phosphorus Magnesium Total Bilirubin AST ALT Alkaline Phosphatase Lactate Dehydrogenase Total Creatine Kinase CK-MB (CK-2) CK-MB (CK-2) % Troponin I Total Protein Albumin Globulin Albumin/Globulin Ratio TSH 3rd Generation Assessment & Plan - Assessment and Plan (Free Text) Assessment: 77 year old male with history of COPD, A Fib, metastatic non small cell lung cancer who is admitted with sepsis, multifocal pneumonia,WILLIS, respiratory failure and N STEMI. Patient' son at bedside. Dr Aguilera updated him of his fathers condition. Goals of care discussed. Burdens of prison ventilator support, CPR explained in detail, questing answered. As per son, patient to remain full code at this time.Psychosocial support provided Time spent with family in goals of care discussion, 20 minutes Plan: Goals of care and advance care planning Sepsis/pneumonia: Continue Vancomycin. and Merrem Pulmonary: remains intubated, maintain O2 sat >92%, monitor chest x ray, ABG's, Xopenex, weaning trial when stable. N STEMI/ A Fib with RVR: Maintain MAP >65,Continue ASA, Lovenox,Betapace, Solatol, DVT prophylaxis. Caridzem on hold
--- NOTE | 2018-05-08 14:35 | PN ---
DATE: 05/08/2018 PULMONARY PROGRESS NOTE REFERRING PHYSICIAN: Erasmo Briggs MD SUBJECTIVE: The patient intubated, sedated, currently on FiO2 of 60. No hemoptysis, hematosis, hematuria, diarrhea or swelling reported per nursing staff. The patient has been tachycardic. EKG done today. OBJECTIVE: GENERAL: No acute distress. VITAL SIGNS: Blood pressure 125/71, pulse 102, oxygen saturation 92%, temperature 98.5. HEENT: Moist mucous membranes. ET tube, no secretions. NECK: Supple. No JVD. LUNGS: Scattered rhonchi, overall fair airflow. CARDIOVASCULAR: S1, S2, tachycardic. ABDOMEN: Soft, nontender. No distension. EXTREMITIES: No bilateral lower extremity edema. NEUROLOGIC: Intubated and sedated. MEDICATIONS: Reviewed. Tylenol 650 every 6 hours p.r.n. mild pain, Mucomyst 4 mL inhalation twice a day, Eliquis 5 mg p.o. twice a day, aspirin 300 mg rectally daily, Tessalon Perles 100 mg 3 times a day p.r.n., Pulmicort 0.5 mg every 12 hours, Cardizem 120 mg daily, Lovenox 60 mg every 12 hours, Lasix 40 mg twice a day, Robitussin 5 mL every 4 hours p.r.n., Humalog sliding scale a.c. and at bedtime, Xopenex 0.63 mg every 6 hours p.r.n., Xopenex 0.63 mg inhalation 3 times a day, meropenem 1 g every 8 hours, Solu-Medrol 40 mg every 12 hours, morphine 2 mg every 4 hours p.r.n. severe pain, nitroglycerin 0.5 topically every 6 hours, nystatin 5 mL p.o. 4 times a day, Protonix 40 mg daily, propofol p.r.n., sodium chloride 0.9% 1000 mL/100 mL/hour, sotalol 80 mg twice a day, tramadol 50 mg every 8 hours p.r.n., vancomycin 1 g every 12 hours. LABORATORY DATA: Reviewed. WBC 13.7, RBC 3.18, hemoglobin 9.2, hematocrit 30.3 and platelets 84. PCO2 of 45, pO2 of 238, HCO3 of 24. ABG, pH 7.34. Sodium 138, potassium 4.2, chloride 108, carbon dioxide 27, anion gap 7, BUN 28, creatinine 0.9, GFR greater than 60, POC glucose 174, random glucose 165, calcium 7.4, phosphorous 2.9, magnesium 2.4, total bilirubin 0.4. AST 142, ALT 66, alkaline phosphatase 112, lactated dehydrogenase 94, total creatinine kinase 455, CK-MB 90.6, CK-MB 19.9, troponin 27.70, albumin 2.4, total protein 7.6, globulin 3.2, albumin-globulin ratio 0.8. TSH 0.32. Blood cultures preliminary, no growth after 48 hours. IMAGING DATA: Chest x-ray shows increasing diffuse alveoli infiltrate most consistent with pulmonary edema. Pneumonia cannot be excluded. Central lines and tubes are unchanged. Echocardiogram shows ejection fraction 50-55%, trace aortic regurgitation, mitral regurgitation mild, [id number] tricuspid regurgitation, RVSP 50, mild pulmonary hypertension. No pericardial effusion, no vegetation or thrombus noted. EKG report pending. IMPRESSION AND PLAN: Unresectable lung cancer requiring radiation chemotherapy; chronic obstructive lung disease; paroxysmal atrial fibrillation; respiratory failure, on ventilator; cardial infarction. The patient with bilateral infiltrates, tumor versus heart failure versus pneumonia. Titrate FiO2 for pulse ox 92% or greater. Procalcitonin drawn today, waiting results to rule out bacterial pneumonia. We will order ABG, chest x-ray and labs in the morning, CBC, CMP. Palliative care consult ordered. The patient with poor prognosis. Case discussed with nursing staff. Critical care time spent more than 35 minutes. The patient was seen and examined with Dr. Yi. Discussed assessment and plan as described above. Thank you for this consult. We will follow with you. Juan Carlos Paul APN Aura Yi MD RODRICK
[2018-05-08] MEDS ORDERED: Sodium Chloride 0.9% 1,000 ML IV STA (17:15)
[2018-05-08] MEDS ORDERED: Amiodarone 150 mg/D5W 100 ml 150 MG/100 ML BAG IVPB ONE (17:15)
--- NOTE | 2018-05-08 18:08 | RAD ---
Date of service: 05/08/2018 HISTORY: pneumonia COMPARISON: Chest radiograph performed approximately 12.5 hours prior. FINDINGS: LUNGS: Diffuse pulmonary vascular congestion/edema with multifocal bilateral infiltrates. PLEURA: Small bilateral pleural effusions. No pneumothorax apparent. CARDIOVASCULAR: Aortic atherosclerotic calcifications. Cardiomediastinal silhouette stably enlarged. OSSEOUS STRUCTURES: Unchanged. VISUALIZED UPPER ABDOMEN: Normal. OTHER FINDINGS: Endotracheal tube, unchanged. Enteric tube is been retracted with side hole now in the distal esophagus. Advancement is recommended. Right internal jugular access chest port, unchanged. IMPRESSION: Malpositioned enteric tube with side hole in the distal esophagus. Advancement is recommended. Diffuse pulmonary vascular congestion/edema with multifocal bilateral infiltrates and probable small bilateral pleural effusions.
[2018-05-08] MEDS: Amiodarone 360 mg/D5W 200 ml 360 MG/200 ML BAG IV SCH (18:37)
[2018-05-08] MEDS: NOREPINEPHRINE BIT/0.9 % NACL 4 MG/250 ML BAG IV PRN (18:40)
[2018-05-08] MEDS: Propofol 10 mg/ml 1,000 MG/100 ML VIAL IV PRN (18:56)
[2018-05-08] MEDS ORDERED: Metoprolol 1 mg/ml Inj IVP ONE (22:03)
--- NOTE | 2018-05-08 23:31 | CARD ---
APPROVED REPORT Date of service: 05/08/2018 EKG Measurement Heart [id number] <Conclusion> Normal sinus rhythm ST & T wave abnormalities diffuse Non diagnostic Q waves in the high lateral leads CCR Abnormal ECG
[2018-05-09] MEDS: Propofol 10 mg/ml 1,000 MG/100 ML VIAL IV PRN ×2 (00:13→06:19)
[2018-05-09] MEDS: Morphine 2 mg/ml ISec IVP PRN ×4 (00:13→20:35)
[2018-05-09] MEDS: Amiodarone 360 mg/D5W 200 ml 360 MG/200 ML BAG IV SCH ×3 (00:14→12:39)
[2018-05-09] MEDS: Vancomycin 1gm in NS 250ml 1 GM/250 ML BAG IVPB SCH ×2 (03:00→14:21)
[2018-05-09] MEDS ORDERED: Metoprolol 1 mg/ml Inj ONE (05:27)
[2018-05-09] MEDS ORDERED: Acetaminophen 650mg/20.3ml solution UD PO ONE (06:00)
[2018-05-09 06:05] LABS: ARTERIAL BLOOD GAS HCO3 29.7 mmol/L (21-28); ARTERIAL BLOOD GAS HEMOGLOBIN 14.5 g/dL (11.7-17.4); ARTERIAL BLOOD GAS O2 CAPACITY 19.6 mL/dl (16-24); ARTERIAL BLOOD GAS O2 CONTENT 18.8 ML/dl (15-23); ARTERIAL BLOOD GAS O2 SAT 95.7 % (95-98); ARTERIAL BLOOD GAS PCO2 55 mm/Hg (35-45); ARTERIAL BLOOD GAS PH 7.34 (7.35-7.45); ARTERIAL BLOOD GAS TCO2 31.4 mmol.L (22-28)
[2018-05-09] MEDS: Nitroglycerin 2% Ointment Foilpak UD TOP SCH ×4 (06:16→21:37)
[2018-05-09] MEDS: Meropenem IV 1 gm in NS 1 GM/50 ML BAG IVPB SCH ×3 (06:19→21:39)
[2018-05-09 06:34] LABS: BASO # 0.01 K/mm3 (0.0-2.0); BASO % 0.1 % (0.0-3.0); GRAN # 18.8 (1.4-6.5); GRAN % 96.6 % (50.0-68.0); HEMOGLOBIN 9.8 g/dL (14.0-18.0); LYMPH # 0.5 (1.2-3.4); LYMPH % 2.4 % (22.0-35.0); MEAN CELL VOLUME 93.9 fl (80.0-105.0); MEAN CORPUSCULAR HEMOGLOBIN 28.7 pg (25.0-35.0); MEAN CORPUSCULAR HGB CONC 30.5 g/dl (31.0-37.0); MEAN PLATELET VOLUME 10.1 fl (7.0-11.0); MONO # 0.2 (0.1-0.6); MONO % 0.9 % (1.0-6.0); RBC 3.42 10^6/uL (3.5-6.1); RED CELL DISTRIBUTION WIDTH 18.1 % (11.5-14.5); WHITE BLOOD COUNT 19.5 10^3/uL (4.5-11.0)
[2018-05-09 07:21] LABS: ALB/GLOB RATIO 0.7 (1.1-1.8); ALBUMIN 2.6 g/dL (3.0-4.8); ALT/SGPT 66 U/L (7-56); AST/SGOT 95 U/L (17-59); BLOOD UREA NITROGEN 39 mg/dL (7-21); CALCIUM 7.5 mg/dL (8.4-10.5); GFR NON-AFRICAN AMERICAN > 60
[2018-05-09] MEDS: Levalbuterol 0.63 MG/3 ML Inhal Soln UD IH SCH ×3 (07:36→20:15)
[2018-05-09] MEDS: Budesonide 0.5 mg/2 ml Inhal Susp UD IH SCH ×2 (07:36→20:15)
[2018-05-09] MEDS: Acetylcysteine 20% Inhal Soln (4ml) IH SCH ×2 (07:36→20:14)
--- NOTE | 2018-05-09 08:11 | CP.CCUPN ---
<Haley Mckeon - Last Filed: 05/09/18 11:18> CCU Subjective - Physician Review Subjective (Free Text): Haley Mckeon, PGY-1, ICU Progress Note for Dr. Gtz Patient seen and evaluated at bedside. Yesterday, at 17:00, patient was tachycardic with heart rate in the 150s and patient was given 3 doses of lopressor IV without any change, and thus, patient was started on amiodarone drip 0.5 mcg/min. Patient became hypotensive yesterday at 18:00 with blood pressure of 81/39 and levophed was started to maintain blood pressure. Patient is currently intubated and sedated with vent settings of 400/18/12/60%, but has been overbreathing the ventilator with a respiratory rate of 40. CCU Objective - Vital Signs / Intake & Output Vital Signs (Last 4 hours): Vital Signs Temp Pulse 05/09/18 06:15 101.5 F H 158 H 05/09/18 06:00 158 H Intake and Output (Last 8hrs): Intake & Output 05/08/18 05/09/18 05/09/18 22:59 06:59 14:59 Intake Total 2123 2675 61.1 Output Total 1500 1500 Balance 623 1175 61.1 Weight 148 lb Intake: IV 123 675 61.1 Right Subclavian 350 Tube Feeding 650 650 Other 1350 1350 Output: Urine 1500 1500 Urethral (Yang) 1500 1500 Stool 0 0 - Physical Exam Head: Positive for: Atraumatic, Normocephalic Pupils: Positive for: PERRL Extroacular Muscles: Positive for: EOMI Conjunctiva: Positive for: Normal Mouth: Positive for: Moist Mucous Membranes Neck: Positive for: Normal Range of Motion Respiratory/Chest: Positive for: Clear to Auscultation, Good Air Exchange, Other (currently on ventilator). Negative for: Respiratory Distress, Accessory Muscle Use Cardiovascular: Positive for: Normal S1, S2, Irregular Rhythm, Tachycardic. Negative for: Murmurs Abdomen: Negative for: Tenderness, Distention, Peritoneal Signs Back: Positive for: Normal Inspection Upper Extremity: Positive for: Normal Inspection. Negative for: Cyanosis, Edema Lower Extremity: Positive for: Normal Inspection. Negative for: Edema Neurological: Positive for: CN II-XII Intact, Speech Normal, Other (intubated) Skin: Positive for: Warm, Dry, Normal Color, Other (R IJ central port noted). Negative for: Rashes - Medications Active Medications: Active Medications Generic Name Dose Route Start Last Admin Trade Name Freq PRN Reason Stop Dose Admin Acetaminophen 650 mg 05/04/18 09:27 Tylenol 325mg Tab PO Q6H PRN Pain, Mild (1-3) Acetylcysteine 4 ml 04/29/18 20:00 05/09/18 07:36 Acetylcysteine 20% IH 4 ml BIDRESP ZARI Administration Apixaban 5 mg 04/27/18 10:00 05/06/18 18:44 Eliquis PO 5 mg BID ZARI Administration Protocol Aspirin 300 mg 05/08/18 10:00 05/08/18 10:55 Aspirin Supp RC 300 mg DAILY ZARI Administration Benzonatate 100 mg 04/26/18 22:48 05/05/18 04:09 Tessalon Perles PO 100 mg TID PRN Administration Cough Budesonide 0.5 mg 04/27/18 20:00 05/09/18 07:36 Pulmicort Respules IH 0.5 mg [id number] ZARI Administration Diltiazem HCl 120 mg 04/27/18 10:00 05/07/18 11:16 Cardizem Cd PO Not Given DAILY ZARI Enoxaparin Sodium 60 mg 05/07/18 10:15 05/08/18 22:16 Lovenox SC 60 mg Q12H ZARI Administration Protocol Furosemide 40 mg 05/08/18 10:00 05/08/18 18:54 Lasix IV 40 mg BID ZARI Administration Guaifenesin/Dextromethorphan 5 ml 04/26/18 22:53 05/05/18 04:09 Robitussin Dm PO 5 ml Q4H PRN Administration Cough Meropenem 1 gm in 50 mls @ 100 mls/hr 05/05/18 15:15 05/09/18 06:19 Merrem Iv 1 Gm Premix IVPB 100 mls/hr Q8 ZARI Administration Protocol Vancomycin HCl 1 gm in 250 mls @ 167 mls/hr 05/05/18 15:15 05/09/18 03:00 Vancomycin 1gm IVPB 167 mls/hr Q12H ZARI Administration Protocol Propofol 1,000 mg in 100 mls @ 2.15 mls/hr 05/05/18 15:24 05/09/18 07:33 Diprivan IV 15 mcg/kg/min .Q24H PRN 6.45 mls/hr TITRATE PER MD ORDER Titration Protocol 5 MCG/KG/MIN Sodium Chloride 1,000 mls @ 100 mls/hr 05/06/18 20:42 05/06/18 20:30 Sodium Chloride 0.9% IV 100 mls/hr .Q10H ZARI Administration NOREPINEPHRINE BIT/0.9 % NACL 4 mg in 250 mls @ 15 mls/hr 05/08/18 17:16 05/09/18 07:34 Levophed 4 Mg/ 250 Ml Ns Premixed IV 4 mcg/min .[id number] PRN 15 mls/hr TITRATE PER MD ORDER Titration Protocol 4 MCG/MIN Amiodarone HCl/Dextrose 360 mg in 200 mls @ 16.667 mls/hr 05/09/18 00:00 05/09/18 00:14 Nexterone 360 Mg In D5w 200 Ml (Premix) IV 16.667 mls/hr .Q12H ZARI Administration Protocol 0.5 MG/MIN Insulin Human Lispro 0 units 05/07/18 11:30 05/08/18 22:14 Humalog Med SC Not Given ACHS ZARI Protocol Levalbuterol HCl 0.63 mg 04/27/18 12:16 05/08/18 03:00 Xopenex IH 0.63 mg [id number] PRN Administration Shortness of Breath Levalbuterol HCl 0.63 mg 04/28/18 20:00 05/09/18 07:36 Xopenex IH 0.63 mg TIDRESP ZARI Administration Methylprednisolone 40 mg 05/07/18 10:15 05/08/18 22:24 Solu-Medrol IVP 40 mg Q12 ZARI Administration Morphine Sulfate 2 mg 05/06/18 12:03 05/09/18 00:13 Morphine IVP 2 mg Q4H PRN Administration Pain, severe (8-10) Nitroglycerin 0.5 ea 05/07/18 09:30 05/09/18 06:16 Nitro-Bid 2% Oint TOP Not Given Q6H ZARI Oseltamivir Phosphate 75 mg 05/09/18 06:45 Tamiflu Susp PO BID [facility] Protocol Pantoprazole Sodium 40 mg 05/02/18 21:00 05/08/18 05:00 Protonix Ec Tab PO 40 mg 0600 ZARI Administration Pantoprazole Sodium 40 mg 05/09/18 10:00 Protonix Inj IVP DAILY [facility] Sotalol HCl 80 mg 05/08/18 09:56 05/08/18 18:46 Betapace PO Not Given BID [facility] Tramadol HCl 50 mg 05/04/18 09:27 05/05/18 04:09 Ultram PO 50 mg Q8H PRN Administration Pain, moderate (4-7) - Patient Studies Lab Studies: Microbiology Studies 05/05/18 16:00 Blood Culture - Preliminary Blood-Venous NO GROWTH AFTER 3 DAYS 05/05/18 15:30 Blood Culture - Preliminary Blood-Venous NO GROWTH AFTER 3 DAYS Lab Studies 05/09/18 05/09/18 05/09/18 Range/Units 07:00 05:30 05:15 WBC (4.5-11.0) 10^3/uL RBC (3.5-6.1) 10^6/uL Hgb (14.0-18.0) g/dL Hct (42.0-52.0) % MCV (80.0-105.0) fl MCH (25.0-35.0) pg MCHC (31.0-37.0) g/dl RDW (11.5-14.5) % Plt Count (120.0-450.0) 10^3/uL MPV (7.0-11.0) fl Gran % (50.0-68.0) % Lymph % (Auto) (22.0-35.0) % [place] % (Auto) (1.0-6.0) % Eos % (Auto) (1.5-5.0) % Baso % (Auto) (0.0-3.0) % Gran # (1.4-6.5) Lymph # (Auto) (1.2-3.4) [place] # (Auto) (0.1-0.6) Eos # (Auto) (0.0-0.7) Baso # (Auto) (0.0-2.0) K/mm3 pCO2 55 H (35-45) mm/Hg pO2 68.0 L (80-100) mm/Hg HCO3 29.7 H (21-28) mmol/L ABG pH 7.34 L (7.35-7.45) ABG Total CO2 31.4 H (22-28) mmol.L ABG O2 Saturation 95.7 (95-98) % ABG O2 Content 18.8 (15-23) ML/dl ABG Base Excess 2.5 (-2.0-3.0) mmol/L ABG Hemoglobin 14.5 (11.7-17.4) g/dL ABG Carboxyhemoglobin 2.6 H (0.5-1.5) % POC ABG HHb (Measured) 4.1 (0-5) % ABG Methemoglobin 1.2 (0.0-3.0) % ABG O2 Capacity 19.6 (16-24) mL/dl Hgb O2 Saturation 92.0 L (95.0-98.0) % FiO2 60.0 % Sodium 139 (132-148) mmol/L Potassium 3.7 (3.6-5.0) mmol/L Chloride 104 (98-107) mmol/L Carbon Dioxide 30 (21-33) mmol/L Anion Gap 8 L (10-20) BUN 39 H (7-21) mg/dL Creatinine 0.8 (0.8-1.5) mg/dl Est GFR ( Amer) > 60 Est GFR (Non-Af Amer) > 60 POC Glucose (mg/dL) (65-110) mg/dL Random Glucose 260 H (70-110) mg/dL Calcium 7.5 L (8.4-10.5) mg/dL Phosphorus (2.5-4.5) mg/dL Magnesium (1.7-2.2) mg/dL Total Bilirubin 0.5 (0.2-1.3) mg/dL AST 95 H D (17-59) U/L ALT 66 H (7-56) U/L Alkaline Phosphatase 125 (38-126) U/L Lactate Dehydrogenase (333-699) U/L Total Creatine Kinase (35-230) U/L CK-MB (CK-2) (0.0-3.6) ng/mL CK-MB (CK-2) % (2.5-3.0) % Troponin I ng/mL Total Protein 6.2 (5.8-8.3) g/dL Albumin 2.6 L (3.0-4.8) g/dL Globulin 3.6 gm/dL Albumin/Globulin Ratio 0.7 L (1.1-1.8) Procalcitonin (0.19-0.49) NG/ML Influenza Typ A,B (EIA) Negative for flu a/b (NEGATIVE) 05/09/18 05/08/18 05/08/18 Range/Units 05:15 21:28 11:27 WBC 19.5 H D (4.5-11.0) 10^3/uL RBC 3.42 L (3.5-6.1) 10^6/uL Hgb 9.8 L (14.0-18.0) g/dL Hct 32.1 L (42.0-52.0) % MCV 93.9 (80.0-105.0) fl MCH 28.7 (25.0-35.0) pg MCHC 30.5 L (31.0-37.0) g/dl RDW 18.1 H (11.5-14.5) % Plt Count 105 L (120.0-450.0) 10^3/uL MPV 10.1 (7.0-11.0) fl Gran % 96.6 H (50.0-68.0) % Lymph % (Auto) 2.4 L (22.0-35.0) % [place] % (Auto) 0.9 L (1.0-6.0) % Eos % (Auto) 0.0 L (1.5-5.0) % Baso % (Auto) 0.1 (0.0-3.0) % Gran # 18.80 H (1.4-6.5) Lymph # (Auto) 0.5 L (1.2-3.4) [place] # (Auto) 0.2 (0.1-0.6) Eos # (Auto) 0.0 (0.0-0.7) Baso # (Auto) 0.01 (0.0-2.0) K/mm3 pCO2 (35-45) mm/Hg pO2 (80-100) mm/Hg HCO3 (21-28) mmol/L ABG pH (7.35-7.45) ABG Total CO2 (22-28) mmol.L ABG O2 Saturation (95-98) % ABG O2 Content (15-23) ML/dl ABG Base Excess (-2.0-3.0) mmol/L ABG Hemoglobin (11.7-17.4) g/dL ABG Carboxyhemoglobin (0.5-1.5) % POC ABG HHb (Measured) (0-5) % ABG Methemoglobin (0.0-3.0) % ABG O2 Capacity (16-24) mL/dl Hgb O2 Saturation (95.0-98.0) % FiO2 % Sodium (132-148) mmol/L Potassium (3.6-5.0) mmol/L Chloride (98-107) mmol/L Carbon Dioxide (21-33) mmol/L Anion Gap (10-20) BUN (7-21) mg/dL Creatinine (0.8-1.5) mg/dl Est GFR ( Amer) Est GFR (Non-Af Amer) POC Glucose (mg/dL) 281 H 247 H (65-110) mg/dL Random Glucose (70-110) mg/dL Calcium (8.4-10.5) mg/dL Phosphorus (2.5-4.5) mg/dL Magnesium (1.7-2.2) mg/dL Total Bilirubin (0.2-1.3) mg/dL AST (17-59) U/L ALT (7-56) U/L Alkaline Phosphatase (38-126) U/L Lactate Dehydrogenase (333-699) U/L Total Creatine Kinase (35-230) U/L CK-MB (CK-2) (0.0-3.6) ng/mL CK-MB (CK-2) % (2.5-3.0) % Troponin I ng/mL Total Protein (5.8-8.3) g/dL Albumin (3.0-4.8) g/dL Globulin gm/dL Albumin/Globulin Ratio (1.1-1.8) Procalcitonin (0.19-0.49) NG/ML Influenza Typ A,B (EIA) (NEGATIVE) 05/08/18 05/08/18 05/08/18 Range/Units 07:21 05:40 05:40 WBC (4.5-11.0) 10^3/uL RBC (3.5-6.1) 10^6/uL Hgb (14.0-18.0) g/dL Hct (42.0-52.0) % MCV (80.0-105.0) fl MCH (25.0-35.0) pg MCHC (31.0-37.0) g/dl RDW (11.5-14.5) % Plt Count (120.0-450.0) 10^3/uL MPV (7.0-11.0) fl Gran % (50.0-68.0) % Lymph % (Auto) (22.0-35.0) % [place] % (Auto) (1.0-6.0) % Eos % (Auto) (1.5-5.0) % Baso % (Auto) (0.0-3.0) % Gran # (1.4-6.5) Lymph # (Auto) (1.2-3.4) [place] # (Auto) (0.1-0.6) Eos # (Auto) (0.0-0.7) Baso # (Auto) (0.0-2.0) K/mm3 pCO2 (35-45) mm/Hg pO2 (80-100) mm/Hg HCO3 (21-28) mmol/L ABG pH (7.35-7.45) ABG Total CO2 (22-28) mmol.L ABG O2 Saturation (95-98) % ABG O2 Content (15-23) ML/dl ABG Base Excess (-2.0-3.0) mmol/L ABG Hemoglobin (11.7-17.4) g/dL ABG Carboxyhemoglobin (0.5-1.5) % POC ABG HHb (Measured) (0-5) % ABG Methemoglobin (0.0-3.0) % ABG O2 Capacity (16-24) mL/dl Hgb O2 Saturation (95.0-98.0) % FiO2 % Sodium 138 (132-148) mmol/L Potassium 4.2 (3.6-5.0) mmol/L Chloride 108 H (98-107) mmol/L Carbon Dioxide 27 (21-33) mmol/L Anion Gap 7 L (10-20) BUN 28 H (7-21) mg/dL Creatinine 0.9 (0.8-1.5) mg/dl Est GFR ( Amer) > 60 Est GFR (Non-Af Amer) > 60 POC Glucose (mg/dL) 174 H (65-110) mg/dL Random Glucose 155 H (70-110) mg/dL Calcium 7.4 L (8.4-10.5) mg/dL Phosphorus 2.9 (2.5-4.5) mg/dL Magnesium 2.4 H (1.7-2.2) mg/dL Total Bilirubin 0.4 (0.2-1.3) mg/dL AST 152 H D (17-59) U/L ALT 66 H (7-56) U/L Alkaline Phosphatase 112 (38-126) U/L Lactate Dehydrogenase 2094 H (333-699) U/L Total Creatine Kinase 455 H (35-230) U/L CK-MB (CK-2) 90.6 H (0.0-3.6) ng/mL CK-MB (CK-2) % 19.9 H (2.5-3.0) % Troponin I 27.70 H* D ng/mL Total Protein 5.6 L (5.8-8.3) g/dL Albumin 2.4 L (3.0-4.8) g/dL Globulin 3.2 gm/dL Albumin/Globulin Ratio 0.8 L (1.1-1.8) Procalcitonin 0.92 H (0.19-0.49) NG/ML Influenza Typ A,B (EIA) (NEGATIVE) Laboratory Results - last 24 hr 05/08/18 05/08/18 05/08/18 05:40 05:40 07:21 WBC RBC Hgb Hct MCV MCH MCHC RDW Plt Count MPV Gran % Lymph % (Auto) [place] % (Auto) Eos % (Auto) Baso % (Auto) Gran # Lymph # (Auto) [place] # (Auto) Eos # (Auto) Baso # (Auto) pCO2 pO2 HCO3 ABG pH ABG Total CO2 ABG O2 Saturation ABG O2 Content ABG Base Excess ABG Hemoglobin ABG Carboxyhemoglobin POC ABG HHb (Measured) ABG Methemoglobin ABG O2 Capacity Hgb O2 Saturation FiO2 Sodium 138 Potassium 4.2 Chloride 108 H Carbon Dioxide 27 Anion Gap 7 L BUN 28 H Creatinine 0.9 Est GFR ( Amer) > 60 Est GFR (Non-Af Amer) > 60 POC Glucose (mg/dL) 174 H Random Glucose 155 H Calcium 7.4 L Phosphorus 2.9 Magnesium 2.4 H Total Bilirubin 0.4 AST 152 H D ALT 66 H Alkaline Phosphatase 112 Lactate Dehydrogenase 2094 H Total Creatine Kinase 455 H CK-MB (CK-2) 90.6 H CK-MB (CK-2) % 19.9 H Troponin I 27.70 H* D Total Protein 5.6 L Albumin 2.4 L Globulin 3.2 Albumin/Globulin Ratio 0.8 L Procalcitonin 0.92 H Influenza Typ A,B (EIA) 05/08/18 05/08/18 05/09/18 11:27 21:28 05:15 WBC 19.5 H D RBC 3.42 L Hgb 9.8 L Hct 32.1 L MCV 93.9 MCH 28.7 MCHC 30.5 L RDW 18.1 H Plt Count 105 L MPV 10.1 Gran % 96.6 H Lymph % (Auto) 2.4 L [place] % (Auto) 0.9 L Eos % (Auto) 0.0 L Baso % (Auto) 0.1 Gran # 18.80 H Lymph # (Auto) 0.5 L [place] # (Auto) 0.2 Eos # (Auto) 0.0 Baso # (Auto) 0.01 pCO2 pO2 HCO3 ABG pH ABG Total CO2 ABG O2 Saturation ABG O2 Content ABG Base Excess ABG Hemoglobin ABG Carboxyhemoglobin POC ABG HHb (Measured) ABG Methemoglobin ABG O2 Capacity Hgb O2 Saturation FiO2 Sodium Potassium Chloride Carbon Dioxide Anion Gap BUN Creatinine Est GFR ( Amer) Est GFR (Non-Af Amer) POC Glucose (mg/dL) 247 H 281 H Random Glucose Calcium Phosphorus Magnesium Total Bilirubin AST ALT Alkaline Phosphatase Lactate Dehydrogenase Total Creatine Kinase CK-MB (CK-2) CK-MB (CK-2) % Troponin I Total Protein Albumin Globulin Albumin/Globulin Ratio Procalcitonin Influenza Typ A,B (EIA) 05/09/18 05/09/18 05/09/18 05:15 05:30 07:00 WBC RBC Hgb Hct MCV MCH MCHC RDW Plt Count MPV Gran % Lymph % (Auto) [place] % (Auto) Eos % (Auto) Baso % (Auto) Gran # Lymph # (Auto) [place] # (Auto) Eos # (Auto) Baso # (Auto) pCO2 55 H pO2 68.0 L HCO3 29.7 H ABG pH 7.34 L ABG Total CO2 31.4 H ABG O2 Saturation 95.7 ABG O2 Content 18.8 ABG Base Excess 2.5 ABG Hemoglobin 14.5 ABG Carboxyhemoglobin 2.6 H POC ABG HHb (Measured) 4.1 ABG Methemoglobin 1.2 ABG O2 Capacity 19.6 Hgb O2 Saturation 92.0 L FiO2 60.0 Sodium 139 Potassium 3.7 Chloride 104 Carbon Dioxide 30 Anion Gap 8 L BUN 39 H Creatinine 0.8 Est GFR ( Amer) > 60 Est GFR (Non-Af Amer) > 60 POC Glucose (mg/dL) Random Glucose 260 H Calcium 7.5 L Phosphorus Magnesium Total Bilirubin 0.5 AST 95 H D ALT 66 H Alkaline Phosphatase 125 Lactate Dehydrogenase Total Creatine Kinase CK-MB (CK-2) CK-MB (CK-2) % Troponin I Total Protein 6.2 Albumin 2.6 L Globulin 3.6 Albumin/Globulin Ratio 0.7 L Procalcitonin Influenza Typ A,B (EIA) Negative for flu a/b Radiology Impressions: Radiology Impressions Chest X-Ray 05/08/18 17:13 IMPRESSION: Malpositioned enteric tube with side hole in the distal esophagus. Advancement is recommended. Diffuse pulmonary vascular congestion/edema with multifocal bilateral infiltrates and probable small bilateral pleural effusions. 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 Patient was diagnosed with sepsis 2/2 to HCAP. On 05/05, patient became hypoxia and was in respiratory distress. Patient was intubated and sedated with propofol and versed. Plan: Neuro: Status post intubation -Intubated and started on precedex 0.2. Propofol has been discontinued. Cardio: NSTEMI -EKG 05/07: atrial fibrillation with RVR with HR: 140 -Troponin: 10.9, 9.66, 8.96, 6.33 -Continue Aspirin 300 mg rectally -Continue Lovenox 60 mg Q12 -Continue Betapace 40 mg BID Atrial fibrillation -EKG: atrial fibrillation with RVR with PVC with HR: 140 -Troponin: 10.9, 9.66, 8.96, 6.33 -EKG will be repeated to reevaluate rhythm. -Discontinue Sotalol 40 mg PO BID -Patient started on precedex and will monitor heart rate. Patient's precedex will be increased to 0.7 if patient continues to be agitated. If heart rate continues to be refractory to therapy, verapamil will be started in the PM. -Continue Lovenox 60 mg Q12 -Started amiodarone for rhythm control due to HR being unresponsive to lopressor 5 mg IVx3 -Started levophed 8 mcg/min due to patient's hypotension. Hypotension 2/2 to abnormal rate and rhythm vs. propofol. -Cardizem 120 mg PO daily held -Eliquis 5 mg BID held -Maintain MAP>65. -Monitor for S/S, HD compromise. Elevated BNP -BNP: 3240 -Echocardiogram 05/07: EF: 49.3%, trace AR, MR, RVSP: 50 -Patient currently has a positive fluid intake to output. As a result, patient will now be fluid restricted and patient's respiratory status will be monitored as patient is diuresed. -Likely diastolic congestive heart failure -Discontinue Sotalol 40 mg PO BID -Lasix 40 mg BID Pulm: Hypoxic respiratory failure 2/2 to ARDS from small cell lung carcinoma -Patient intubated and sedated with settings 400/18/12/60%. -Maintain O2 saturation>92%. -ABG 05/09: pH: 7.34, pO2: 68 pCO2: 55 -Daily ABG and CXR -Weaning and sedation trials daily -Elevate bed to 30 degrees -Oral protective hygiene daily -Conservative fluid management continued COPD -Continue with methylprednisone 40 mg Q12, pulmicort 0.5 mg IH Q12, and xopenex 0.63 mg IH TID Multifocal pneumonia -CXR 05/09: extensive bilateral pulmonary opacities. worsened from yesterday -Chest CT 04/27: multifocal pneumonia -Continue with vancomycin 1 gm Q12 and merrem 1 gm Q8 day 4 GI: Elevated LFTs -Improving LFTs -Likely due to congestive hepatopathy -Continue to trend via CMP Diet -NPO. -Currently getting Jevity tube feedings with starting rate at 20 cc/hr and will increase by 10 cc/hr up to goal rate of 60 cc/hr GI prophylaxis -Protonix 40 mg daily /Nephro: -BUN/Cr stable at 39/0.8 -Yang in place with sufficient output -Continue monitoring. -Replete electrolytes as needed. -Maintain euvolemia. Endocrinology: -Random glucose: 260 -High dose sliding scale insulin -Maintain euglycemia. Heme/Onc: -H/H stable at 9.8/32.1 -No signs of HD compromise. -Continue monitoring H/H DVT prophylaxis -Eliquis 5 mg BID currently held -Lovenox 60 mg Q12 as therapeutic anticoagulation for NSTEMI Elevated D-dimer -D-dimer elevated at 6149 likely due to metastasis -Bilateral lower extremity ultrasound was negative for DVT ID: Multifocal pneumonia -CXR 05/09: extensive bilateral pulmonary opacities. improved from previous CXR -Chest CT 04/27: multifocal pneumonia -Febrile at 101.5, leukocytosis worsened to 19.5 from 13.7 -Blood culture was negative for 5 days upon admission. Blood culture reordered was negative for 72 hours -Follow up sputum culture -Procal 05/05: 0.55. Follow up repeat procal. -Vancomycin 1 gm Q12 day 4 -Merrem 1 gm Q8 day 4 -Nystatin 5 mg QID -Monitor for signs and symptoms of infection. Patient seen and examined with Dr. Gtz. - Date & Time Date: 05/09/18 Time: 08:06 <Shay Gtz - Last Filed: 05/09/18 11:45> CCU Objective - Vital Signs / Intake & Output Vital Signs (Last 4 hours): Vital Signs Pulse BP 05/09/18 09:34 104 H 120/82 05/09/18 09:28 120/82 Intake and Output (Last 8hrs): Intake & Output 05/08/18 05/09/18 05/09/18 22:59 06:59 14:59 Intake Total 2123 2675 83.8 Output Total 1500 1500 Balance 623 1175 83.8 Weight 148 lb Intake: IV 123 675 83.8 Right Subclavian 350 Tube Feeding 650 650 Other 1350 1350 Output: Urine 1500 1500 Urethral (Yang) 1500 1500 Stool 0 0 - Medications Active Medications: Active Medications Generic Name Dose Route Start Last Admin Trade Name Freq PRN Reason Stop Dose Admin Acetaminophen 650 mg 05/04/18 09:27 Tylenol 325mg Tab PO Q6H PRN Pain, Mild (1-3) Acetylcysteine 4 ml 04/29/18 20:00 05/09/18 07:36 Acetylcysteine 20% IH 4 ml BIDRESP ZARI Administration Apixaban 5 mg 04/27/18 10:00 05/06/18 18:44 Eliquis PO 5 mg BID ZARI Administration Protocol Aspirin 300 mg 05/08/18 10:00 05/09/18 09:29 Aspirin Supp RC 300 mg DAILY ZARI Administration Benzonatate 100 mg 04/26/18 22:48 05/05/18 04:09 Tessalon Perles PO 100 mg TID PRN Administration Cough Budesonide 0.5 mg 04/27/18 20:00 05/09/18 07:36 Pulmicort Respules IH 0.5 mg [id number] ZARI Administration Dextrose 0 ml 05/09/18 10:48 Dextrose 50% Inj IV STAT PRN Hypoglycemia Protocol Protocol Digoxin 0.25 mg 05/09/18 15:00 Lanoxin IVP 05/09/18 15:01 ONCE ONE Diltiazem HCl 120 mg 04/27/18 10:00 05/07/18 11:16 Cardizem Cd PO Not Given DAILY ZARI Enoxaparin Sodium 60 mg 05/07/18 10:15 05/09/18 09:28 Lovenox SC 60 mg Q12H ZARI Administration Protocol Furosemide 40 mg 05/08/18 10:00 05/09/18 09:28 Lasix IV 40 mg BID ZARI Administration Guaifenesin/Dextromethorphan 5 ml 04/26/18 22:53 05/05/18 04:09 Robitussin Dm PO 5 ml Q4H PRN Administration Cough Meropenem 1 gm in 50 mls @ 100 mls/hr 05/05/18 15:15 05/09/18 06:19 Merrem Iv 1 Gm Premix IVPB 100 mls/hr Q8 ZARI Administration Protocol Vancomycin HCl 1 gm in 250 mls @ 167 mls/hr 05/05/18 15:15 05/09/18 03:00 Vancomycin 1gm IVPB 167 mls/hr Q12H ZARI Administration Protocol Propofol 1,000 mg in 100 mls @ 2.15 mls/hr 05/05/18 15:24 05/09/18 08:19 Diprivan IV 10 mcg/kg/min .Q24H PRN 4.3 mls/hr TITRATE PER MD ORDER Titration Protocol 5 MCG/KG/MIN Sodium Chloride 1,000 mls @ 100 mls/hr 05/06/18 20:42 05/06/18 20:30 Sodium Chloride 0.9% IV 100 mls/hr .Q10H ZARI Administration NOREPINEPHRINE BIT/0.9 % NACL 4 mg in 250 mls @ 15 mls/hr 05/08/18 17:16 05/09/18 10:41 Levophed 4 Mg/ 250 Ml Ns Premixed IV 0 mcg/min .[id number] PRN 0 mls/hr TITRATE PER MD ORDER Titration Protocol 4 MCG/MIN Amiodarone HCl/Dextrose 360 mg in 200 mls @ 16.667 mls/hr 05/09/18 00:00 05/09/18 00:14 Nexterone 360 Mg In D5w 200 Ml (Premix) IV 16.667 mls/hr .Q12H ZARI Administration Protocol 0.5 MG/MIN Dexmedetomidine HCl 400 mcg in 100 mls @ 3.357 mls/hr 05/09/18 10:31 05/09/18 11:21 Precedex 400mcg/100ml IV 0.4 mcg/kg/hr .Q24H PRN 6.713 mls/hr Sedation Titration Protocol 0.2 MCG/KG/HR Dextrose 1,000 mls @ 0 mls/hr 05/09/18 10:48 Dextrose 5% In Water 1000 Ml IV .Q0M PRN Hypoglycemia Protocol Protocol Per Protocol Insulin Human Lispro 0 units 05/09/18 11:30 Humalog High SC ACHS ZARI Protocol Levalbuterol HCl 0.63 mg 04/27/18 12:16 05/08/18 03:00 Xopenex IH 0.63 mg [id number] PRN Administration Shortness of Breath Levalbuterol HCl 0.63 mg 04/28/18 20:00 05/09/18 07:36 Xopenex IH 0.63 mg TIDRESP ZARI Administration Methylprednisolone 40 mg 05/07/18 10:15 05/09/18 09:34 Solu-Medrol IVP 40 mg Q12 ZARI Administration Morphine Sulfate 2 mg 05/06/18 12:03 05/09/18 09:27 Morphine IVP 2 mg Q4H PRN Administration Pain, severe (8-10) Nitroglycerin 0.5 ea 05/07/18 09:30 05/09/18 09:30 Nitro-Bid 2% Oint TOP 0.5 ea Q6H ZARI Administration Oseltamivir Phosphate 75 mg 05/09/18 06:45 05/09/18 11:17 Tamiflu Susp PO 1 dose BID ZARI Administration Protocol Pantoprazole Sodium 40 mg 05/02/18 21:00 05/08/18 05:00 Protonix Ec Tab PO 40 mg 0600 ZARI Administration Pantoprazole Sodium 40 mg 05/09/18 10:00 05/09/18 09:34 Protonix Inj IVP 40 mg DAILY ZARI Administration Sotalol HCl 40 mg 05/09/18 10:00 05/09/18 09:34 Betapace PO 40 mg BID ZARI Administration Tramadol HCl 50 mg 05/04/18 09:27 05/05/18 04:09 Ultram PO 50 mg Q8H PRN Administration Pain, moderate (4-7) Verapamil HCl 2.5 mg 05/09/18 08:35 Verapamil Inj IVP Q6H PRN For heart rate >130 - Patient Studies Lab Studies: Microbiology Studies 05/05/18 16:00 Blood Culture - Preliminary Blood-Venous NO GROWTH AFTER 3 DAYS 05/05/18 15:30 Blood Culture - Preliminary Blood-Venous NO GROWTH AFTER 3 DAYS Lab Studies 05/09/18 05/09/18 05/09/18 Range/Units 07:00 05:30 05:15 WBC (4.5-11.0) 10^3/uL RBC (3.5-6.1) 10^6/uL Hgb (14.0-18.0) g/dL Hct (42.0-52.0) % MCV (80.0-105.0) fl MCH (25.0-35.0) pg MCHC (31.0-37.0) g/dl RDW (11.5-14.5) % Plt Count (120.0-450.0) 10^3/uL MPV (7.0-11.0) fl Gran % (50.0-68.0) % Lymph % (Auto) (22.0-35.0) % [place] % (Auto) (1.0-6.0) % Eos % (Auto) (1.5-5.0) % Baso % (Auto) (0.0-3.0) % Gran # (1.4-6.5) Lymph # (Auto) (1.2-3.4) [place] # (Auto) (0.1-0.6) Eos # (Auto) (0.0-0.7) Baso # (Auto) (0.0-2.0) K/mm3 pCO2 55 H (35-45) mm/Hg pO2 68.0 L (80-100) mm/Hg HCO3 29.7 H (21-28) mmol/L ABG pH 7.34 L (7.35-7.45) ABG Total CO2 31.4 H (22-28) mmol.L ABG O2 Saturation 95.7 (95-98) % ABG O2 Content 18.8 (15-23) ML/dl ABG Base Excess 2.5 (-2.0-3.0) mmol/L ABG Hemoglobin 14.5 (11.7-17.4) g/dL ABG Carboxyhemoglobin 2.6 H (0.5-1.5) % POC ABG HHb (Measured) 4.1 (0-5) % ABG Methemoglobin 1.2 (0.0-3.0) % ABG O2 Capacity 19.6 (16-24) mL/dl Hgb O2 Saturation 92.0 L (95.0-98.0) % FiO2 60.0 % Sodium 139 (132-148) mmol/L Potassium 3.7 (3.6-5.0) mmol/L Chloride 104 (98-107) mmol/L Carbon Dioxide 30 (21-33) mmol/L Anion Gap 8 L (10-20) BUN 39 H (7-21) mg/dL Creatinine 0.8 (0.8-1.5) mg/dl Est GFR ( Amer) > 60 Est GFR (Non-Af Amer) > 60 POC Glucose (mg/dL) (65-110) mg/dL Random Glucose 260 H (70-110) mg/dL Calcium 7.5 L (8.4-10.5) mg/dL Total Bilirubin 0.5 (0.2-1.3) mg/dL AST 95 H D (17-59) U/L ALT 66 H (7-56) U/L Alkaline Phosphatase 125 (38-126) U/L Total Protein 6.2 (5.8-8.3) g/dL Albumin 2.6 L (3.0-4.8) g/dL Globulin 3.6 gm/dL Albumin/Globulin Ratio 0.7 L (1.1-1.8) Procalcitonin (0.19-0.49) NG/ML Influenza Typ A,B (EIA) Negative for flu a/b (NEGATIVE) 05/09/18 05/08/18 05/08/18 Range/Units 05:15 21:28 05:40 WBC 19.5 H D (4.5-11.0) 10^3/uL RBC 3.42 L (3.5-6.1) 10^6/uL Hgb 9.8 L (14.0-18.0) g/dL Hct 32.1 L (42.0-52.0) % MCV 93.9 (80.0-105.0) fl MCH 28.7 (25.0-35.0) pg MCHC 30.5 L (31.0-37.0) g/dl RDW 18.1 H (11.5-14.5) % Plt Count 105 L (120.0-450.0) 10^3/uL MPV 10.1 (7.0-11.0) fl Gran % 96.6 H (50.0-68.0) % Lymph % (Auto) 2.4 L (22.0-35.0) % [place] % (Auto) 0.9 L (1.0-6.0) % Eos % (Auto) 0.0 L (1.5-5.0) % Baso % (Auto) 0.1 (0.0-3.0) % Gran # 18.80 H (1.4-6.5) Lymph # (Auto) 0.5 L (1.2-3.4) [place] # (Auto) 0.2 (0.1-0.6) Eos # (Auto) 0.0 (0.0-0.7) Baso # (Auto) 0.01 (0.0-2.0) K/mm3 pCO2 (35-45) mm/Hg pO2 (80-100) mm/Hg HCO3 (21-28) mmol/L ABG pH (7.35-7.45) ABG Total CO2 (22-28) mmol.L ABG O2 Saturation (95-98) % ABG O2 Content (15-23) ML/dl ABG Base Excess (-2.0-3.0) mmol/L ABG Hemoglobin (11.7-17.4) g/dL ABG Carboxyhemoglobin (0.5-1.5) % POC ABG HHb (Measured) (0-5) % ABG Methemoglobin (0.0-3.0) % ABG O2 Capacity (16-24) mL/dl Hgb O2 Saturation (95.0-98.0) % FiO2 % Sodium (132-148) mmol/L Potassium (3.6-5.0) mmol/L Chloride (98-107) mmol/L Carbon Dioxide (21-33) mmol/L Anion Gap (10-20) BUN (7-21) mg/dL Creatinine (0.8-1.5) mg/dl Est GFR ( Amer) Est GFR (Non-Af Amer) POC Glucose (mg/dL) 281 H (65-110) mg/dL Random Glucose (70-110) mg/dL Calcium (8.4-10.5) mg/dL Total Bilirubin (0.2-1.3) mg/dL AST (17-59) U/L ALT (7-56) U/L Alkaline Phosphatase (38-126) U/L Total Protein (5.8-8.3) g/dL Albumin (3.0-4.8) g/dL Globulin gm/dL Albumin/Globulin Ratio (1.1-1.8) Procalcitonin 0.92 H (0.19-0.49) NG/ML Influenza Typ A,B (EIA) (NEGATIVE) Laboratory Results - last 24 hr 05/08/18 05/08/18 05/09/18 05:40 21:28 05:15 WBC 19.5 H D RBC 3.42 L Hgb 9.8 L Hct 32.1 L MCV 93.9 MCH 28.7 MCHC 30.5 L RDW 18.1 H Plt Count 105 L MPV 10.1 Gran % 96.6 H Lymph % (Auto) 2.4 L [place] % (Auto) 0.9 L Eos % (Auto) 0.0 L Baso % (Auto) 0.1 Gran # 18.80 H Lymph # (Auto) 0.5 L [place] # (Auto) 0.2 Eos # (Auto) 0.0 Baso # (Auto) 0.01 pCO2 pO2 HCO3 ABG pH ABG Total CO2 ABG O2 Saturation ABG O2 Content ABG Base Excess ABG Hemoglobin ABG Carboxyhemoglobin POC ABG HHb (Measured) ABG Methemoglobin ABG O2 Capacity Hgb O2 Saturation FiO2 Sodium Potassium Chloride Carbon Dioxide Anion Gap BUN Creatinine Est GFR ( Amer) Est GFR (Non-Af Amer) POC Glucose (mg/dL) 281 H Random Glucose Calcium Total Bilirubin AST ALT Alkaline Phosphatase Total Protein Albumin Globulin Albumin/Globulin Ratio Procalcitonin 0.92 H Influenza Typ A,B (EIA) 05/09/18 05/09/18 05/09/18 05:15 05:30 07:00 WBC RBC Hgb Hct MCV MCH MCHC RDW Plt Count MPV Gran % Lymph % (Auto) [place] % (Auto) Eos % (Auto) Baso % (Auto) Gran # Lymph # (Auto) [place] # (Auto) Eos # (Auto) Baso # (Auto) pCO2 55 H pO2 68.0 L HCO3 29.7 H ABG pH 7.34 L ABG Total CO2 31.4 H ABG O2 Saturation 95.7 ABG O2 Content 18.8 ABG Base Excess 2.5 ABG Hemoglobin 14.5 ABG Carboxyhemoglobin 2.6 H POC ABG HHb (Measured) 4.1 ABG Methemoglobin 1.2 ABG O2 Capacity 19.6 Hgb O2 Saturation 92.0 L FiO2 60.0 Sodium 139 Potassium 3.7 Chloride 104 Carbon Dioxide 30 Anion Gap 8 L BUN 39 H Creatinine 0.8 Est GFR ( Amer) > 60 Est GFR (Non-Af Amer) > 60 POC Glucose (mg/dL) Random Glucose 260 H Calcium 7.5 L Total Bilirubin 0.5 AST 95 H D ALT 66 H Alkaline Phosphatase 125 Total Protein 6.2 Albumin 2.6 L Globulin 3.6 Albumin/Globulin Ratio 0.7 L Procalcitonin Influenza Typ A,B (EIA) Negative for flu a/b Radiology Impressions: Radiology Impressions Chest X-Ray 05/08/18 17:13 IMPRESSION: Malpositioned enteric tube with side hole in the distal esophagus. Advancement is recommended. Diffuse pulmonary vascular congestion/edema with multifocal bilateral infiltrates and probable small bilateral pleural effusions. Chest X-Ray 05/09/18 08:00 IMPRESSION: The concern for a possible small right inferolateral pneumothorax has been raised and directly discussed with the nurse taking care this patient qamar in the CCU on 05/09/2018 at 10:35 a.m.. It was also Re recommended that the NG tube be advanced further into the stomach as has been noted previously. The other findings referenced above regarding the lung appearance are similar with the prior studies-coalescent areas of pulmonary venous congestion and/or coalescent areas of interstitial and lesser airspace infiltrates are all in the differential considerations Chest X-Ray 05/09/18 09:49 IMPRESSION: Interval repositioning of the nasogastric tube now appears satisfactory. Endotracheal tube appears satisfactory. No change in the right central line with tip in this right atrium-correlate clinically The bilateral patchy interstitial and bilateral coalescent vague low-density airspace opacities are renoted no change in the left lung appreciated. Some slight increased density consolidation in the mid right lung zone may be impart hypoventilatory accentuation given the current more shallow lung volumes. Continued follow-up recommended. Chest X-Ray 05/09/18 10:38 IMPRESSION: No change in bilateral alveolar infiltrates and vascular congestion EKG/Cardiology Studies: Cardiology / EKG Studies 05/09/18 10:33 EKG [ELECTROCARDIOGRAM] Routine Comment: Reason For Exam: evaluation Critical Care Progress Note - Nutrition Nutrition: Nutrition Category Date Time Status NPO Diet [DIET] Diets 05/06/18 Breakfast Ordered Attending/Attestation - Attestation I have personally seen and examined this patient.: Yes I have fully participated in the care of the patient.: Yes I have reviewed all pertinent clinical information: Yes Notes (Text): 05/09/18 11:42 77 yo male with VDRF, hypoxemic respiratory failure, advanced COPD, afib with RVR, metastatic small cell lung CA. will proceed with conservative fluid management, daily sedation vacation and weaning trials, steroids, bronchodilato rs, abx, HOB>35, oral hygiene, on amiodarone drip, will switch from propofol to precedex, cardiology follow up. NE weaned off. will touch base with family todau. spoke with Dr. Bullard yestrday-->end of life discussion is appropriate. dvt/gi prophylaxis ccm time 40 min
[2018-05-09] MEDS: Insulin Lispro (humaLOG) MEDIUM Coverage SC SCH (08:24)
[2018-05-09] MEDS ORDERED: Potassium Chloride 20 mEq/15 ml LIQ UD PO STA (08:36)
[2018-05-09] MEDS ORDERED: Digoxin 500 mcg/2ml (0.5 mg/2ml) Inj IVP ONE ×2 (08:36→15:00)
[2018-05-09] MEDS: Enoxaparin 60 mg Syringe SC SCH ×2 (09:28→22:16)
[2018-05-09] MEDS: MethylPREDNISolone 40 mg Vial IVP SCH ×2 (09:34→21:39)
--- NOTE | 2018-05-09 10:42 | RAD ---
Date of service: 05/09/2018 HISTORY: follow up infiltrate COMPARISON: 05/08/2018 AT: 17:54 HOURS FINDINGS: LUNGS: The bilateral patchy coalescent interstitial and airspace opacities are renoted and similar given technical differences. The extensive miss is greater in the left lung as it was before. Endotracheal tube tip is approximately 5 to 6 cm cephalad to the inga. PLEURA: Bilateral small pleural effusions with or without pleural thickening are suspect. No left apical pneumothorax seen. There is paucity of lung markings at the right costophrenic angle and this appearance is somewhat indeterminate. Fold and/or small right inferolateral pneumothorax here is a consideration. Areas of pleural parenchymal opacity right upper lobe laterally and left mid lung zone laterally are similar in appearance evaluation these left ribs is also problematic in this single view is unknown if patient has had any prior old left rib fractures here with left pleural thickening. Or this is merely left pleural thickening with or without some minimal fluid. CARDIOVASCULAR: There is presence of aortic atherosclerotic calcification on x-ray. Mild cardiomegaly as before mild-moderate pulmonary venous congestion/mild-moderate pulmonary interstitial edema is suspect and similar in appearance Right central line tip in right atrium. This appearance is similar. OSSEOUS STRUCTURES: Inferior thoraco lumbar junctional spondylosis. VISUALIZED UPPER ABDOMEN: NG tube tip in distal esophagus-side and proximal to that. As was mentioned previously, recommend advancement of at least approximately 8 to 10 cm OTHER FINDINGS: None. IMPRESSION: The concern for a possible small right inferolateral pneumothorax has been raised and directly discussed with the nurse taking care this patient qamar in the CCU on 05/09/2018 at 10:35 a.m.. It was also Re recommended that the NG tube be advanced further into the stomach as has been noted previously. The other findings referenced above regarding the lung appearance are similar with the prior studies-coalescent areas of pulmonary venous congestion and/or coalescent areas of interstitial and lesser airspace infiltrates are all in the differential considerations
[2018-05-09] MEDS: Dexmedetomidine 400mcg/100mL 400 MCG/100 ML BOTTLE IV PRN ×2 (10:45→19:20)
--- NOTE | 2018-05-09 10:48 | RAD ---
Date of service: 05/09/2018 HISTORY: evaluation of ET, OG tube COMPARISON: 05/09/2018 at 0634 hr FINDINGS: LUNGS: The bilateral interstitial and patchy airspace opacities in both lungs is renoted. The left lung appears grossly similar. The right lung shows some minimal increased density in the right mid lung zone of prior abnormal interstitial and low-density patchy airspace opacities that were present here. Current lung volumes are more shallow than before and may be contributory. Endotracheal tube tip 3 cm cephalad to the inga. PLEURA: No interval pleural effusions noted. The prior left pleural effusion and/or thickening is as before.The current right costophrenic angle appear sharper. The prior equivocal pleural reflection of a small right inferolateral possible pneumothorax here (versus skin fold and summation effects) is not reproduced or re-suggested again on this exam. The prior areas of pleural thickening right upper lung zone and left lateral mid lung zone are similar in appearance CARDIOVASCULAR: There is presence of aortic atherosclerotic calcification on x-ray. Prior mild cardiomegaly is less suggested on the current study. The prior element of the pulmonary venous congestion is probably similar this an overlap in appearance with bilateral patchy interstitial and vague low-density patchy infiltrates. Right central line tip in right atrium as before. OSSEOUS STRUCTURES: No significant abnormalities. VISUALIZED UPPER ABDOMEN: The prior NG tube has been advanced and its tip is in the gastric fundus its current appearance appear satisfactory. OTHER FINDINGS: None. IMPRESSION: Interval repositioning of the nasogastric tube now appears satisfactory. Endotracheal tube appears satisfactory. No change in the right central line with tip in this right atrium-correlate clinically The bilateral patchy interstitial and bilateral coalescent vague low-density airspace opacities are renoted no change in the left lung appreciated. Some slight increased density consolidation in the mid right lung zone may be impart hypoventilatory accentuation given the current more shallow lung volumes. Continued follow-up recommended.
[2018-05-09] MEDS: Oseltamivir 6 MG/ML PO SCH ×2 (11:17→17:03)
--- NOTE | 2018-05-09 11:21 | PN ---
DATE: 05/09/2017 REASON FOR CONSULTATION AND FOLLOWUP: Status post respiratory failure intubated, elevated troponin, non-ST segment with myocardial infarction, history of lung CA with metastasis, pneumonia, sepsis, AFib with rapid ventricular rate, non-ST segment myocardial infarction. SUBJECTIVE: Patient remain on vent, sedated, ventilated, on propofol and Versed. Patient remains hypotensive, aflutter, on Levophed as well as IV amio and vent. OBJECTIVE: VITAL SIGNS: Temperature 101.1, heart rate 140, blood pressure 129/30. HEENT: PERRLA intact. NECK: Supple. No carotid bruit or thyromegaly. CHEST: Clear to auscultation. HEART: S1 and S2 regular. ABDOMEN: Soft. EXTREMITIES: Clubbing and cyanosis negative. LABORATORY DATA: Blood workup: WBC 19.5, hemoglobin 9.8, hematocrit 32.1, and platelet count 105. Chemistry shows sodium 139, potassium 3.7, chloride 104, carbon dioxide 30, anion gap of 8, BUN of 39, and creatinine 0.8. Chest x-ray, diffuse pulmonary vascular congestion, multifocal bilateral infiltrate, bilateral small pleural effusion. IMPRESSION: A 77-year-old male with past medical history significant for paroxysmal atrial fibrillation, small cell metastatic cancer, admitted to the floor initially failure thrive, hospital-acquired pneumonia, respiratory distress on 05/05 requiring intubation, moved to ICU. Patient was sinus now, patient went into AFib with rapid ventricular rate, last night dropped the blood pressure, hypotension requiring Levophed. Currently, on Levophed IV, , IV propofol and Versed drip. Recently, patient had an echocardiography done 05/07/2018 day before yesterday that showed ejection fraction 50-55%, trace aortic regurgitation, mild mitral regurgitation, [id number] tricuspid regurgitation, RV systolic pressure 50, mild pulmonary hypertension. Patient was normal sinus at that time. Now, patient has hypotension, non-ST segment myocardial infarction, atrial fibrillation with rapid ventricular rate, hypotension, sepsis, septic shock, hypokalemia, anemia. RECOMMENDATION: Continue Levophed, discussed with the nurse taking care, try to wean off the Levophed. Continue IV amio, we will start IV verapamil 2.5 every 6 hours p.r.n. We will put Lopressor through the NG tube at 25, but we will decrease the dose of Sotalol and decrease because of hypotension 40 mg twice daily, and we will give p.r.n. verapamil for heart rate more than 130, we will continue Lovenox 1 mg subcutaneous every 12 half an inch nitro paste as blood pressure is tolerated. Overall, patient's critical prognosis is extremely poor. Hattie Mcallister discussed with the patient's son, son wanted everything to be done. We will follow with you. Thank you Dr. Christianson for providing me an opportunity in taking care of the patient, Salvador Alvarenga. We will hold Cardizem and put sotalol 40 twice daily because of the low blood pressure. We will give one dose of dig now to lower the heart rate, and we will get verapamil every 6 hours p.r.n. for heart rate more than 130. We will continue 0.25 and followed by 3 p.m. another dose. Currently, patient is in the aflutter with variable conduction due to one conduction versus one-to-one conduction. Aura Orozco MD
--- NOTE | 2018-05-09 11:22 | RAD ---
Date of service: 05/09/2018 HISTORY: evaluation for possible pneumothorax COMPARISON: 05/09/2018 FINDINGS: LUNGS: No change in bilateral alveolar infiltrates and vascular congestion PLEURA: No significant pleural effusion identified, no pneumothorax apparent. CARDIOVASCULAR: No aortic atherosclerotic calcification present. Normal cardiac size. OSSEOUS STRUCTURES: No significant abnormalities. VISUALIZED UPPER ABDOMEN: Normal. OTHER FINDINGS: Endotracheal tube and nasogastric tube in satisfactory position IMPRESSION: No change in bilateral alveolar infiltrates and vascular congestion
--- NOTE | 2018-05-09 11:48 | CARD ---
APPROVED REPORT Date of service: 05/09/2018 EKG Measurement Heart [id number] <Conclusion> Atrial flutter with variable AV block Nonspecific ST abnormality Abnormal ECG
--- NOTE | 2018-05-09 12:04 | CP.PCM.PN ---
Subjective - Date & Time of Evaluation Date of Evaluation: 05/09/18 Time of Evaluation: 10:10 - Subjective Subjective: Developed fever overnight, still intubated and sedated, tachycardic today. Objective - Vital Signs/Intake and Output Vital Signs (last 24 hours): Temp Pulse Resp BP Pulse Ox 98.5 F 102 H 21 125/71 92 L 05/08/18 05:00 05/08/18 10:44 05/08/18 07:55 05/08/18 10:44 05/08/18 07:55 Intake and Output: 05/08/18 05/08/18 06:59 18:59 Intake Total 556 7 Output Total 725 Balance -169 7 - Medications Medications: Current Medications Acetaminophen (Tylenol 325mg Tab) 650 mg PO Q6H PRN PRN Reason: Pain, Mild (1-3) Acetylcysteine (Acetylcysteine 20%) 4 ml IH BIDRESP [facility] Last Admin: 05/08/18 07:56 Dose: 4 ml Apixaban (Eliquis) 5 mg PO BID [facility]; Protocol Last Admin: 05/06/18 18:44 Dose: 5 mg Aspirin (Aspirin Supp) 300 mg RC DAILY [facility] Last Admin: 05/08/18 10:55 Dose: 300 mg Benzonatate (Tessalon Perles) 100 mg PO TID PRN PRN Reason: Cough Last Admin: 05/05/18 04:09 Dose: 100 mg Budesonide (Pulmicort Respules) 0.5 mg IH [id number] [facility] Last Admin: 05/08/18 07:57 Dose: 0.5 mg Diltiazem HCl (Cardizem Cd) 120 mg PO DAILY [facility] Last Admin: 05/07/18 11:16 Dose: Not Given Enoxaparin Sodium (Lovenox) 60 mg SC Q12H [facility]; Protocol Last Admin: 05/08/18 11:14 Dose: 60 mg Furosemide (Lasix) 40 mg IV BID [facility] Last Admin: 05/08/18 08:31 Dose: 40 mg Guaifenesin/Dextromethorphan (Robitussin Dm) 5 ml PO Q4H PRN PRN Reason: Cough Last Admin: 05/05/18 04:09 Dose: 5 ml Meropenem (Merrem Iv 1 Gm Premix) 1 gm in 50 mls @ 100 mls/hr IVPB Q8 [facility]; Protocol Last Admin: 05/08/18 05:22 Dose: 100 mls/hr Vancomycin HCl (Vancomycin 1gm) 1 gm in 250 mls @ 167 mls/hr IVPB Q12H [facility]; Protocol Last Admin: 05/08/18 03:43 Dose: 167 mls/hr Propofol (Diprivan) 1,000 mg in 100 mls @ 2.15 mls/hr IV .Q24H PRN; Protocol PRN Reason: TITRATE PER MD ORDER Last Titration: 05/08/18 11:02 Dose: 10 mcg/kg/min, 4.3 mls/hr Sodium Chloride (Sodium Chloride 0.9%) 1,000 mls @ 100 mls/hr IV .Q10H [facility] Last Admin: 05/06/18 20:30 Dose: 100 mls/hr Insulin Human Lispro (Humalog Med) 0 units SC ACHS [facility]; Protocol Last Admin: 05/08/18 08:46 Dose: 1 u Levalbuterol HCl (Xopenex) 0.63 mg IH [id number] PRN PRN Reason: Shortness of Breath Last Admin: 05/08/18 03:00 Dose: 0.63 mg Levalbuterol HCl (Xopenex) 0.63 mg IH TIDRESP [facility] Last Admin: 05/08/18 07:56 Dose: 0.63 mg Methylprednisolone (Solu-Medrol) 40 mg IVP Q12 [facility] Last Admin: 05/08/18 09:19 Dose: 40 mg Morphine Sulfate (Morphine) 2 mg IVP Q4H PRN PRN Reason: Pain, severe (8-10) Last Admin: 05/07/18 02:25 Dose: 2 mg Nitroglycerin (Nitro-Bid 2% Oint) 0.5 ea TOP Q6H [facility] Last Admin: 05/08/18 11:07 Dose: Not Given Nystatin (Nystatin Oral Susp) 5 ml PO QID [facility] Last Admin: 05/08/18 09:19 Dose: 5 ml Pantoprazole Sodium (Protonix Ec Tab) 40 mg PO 0600 [facility] Last Admin: 05/08/18 05:00 Dose: 40 mg Sotalol HCl (Betapace) 80 mg PO BID [facility] Last Admin: 05/08/18 09:35 Dose: 80 mg Tramadol HCl (Ultram) 50 mg PO Q8H PRN PRN Reason: Pain, moderate (4-7) Last Admin: 05/05/18 04:09 Dose: 50 mg - Labs Labs: 05/08/18 05:40 05/08/18 05:40 PT 25.7 SECONDS (9.4-12.5) H 05/07/18 06:30 INR 2.20 05/07/18 06:30 APTT 25.5 Seconds (25.1-36.5) 05/07/18 06:30 - Constitutional Appears: Chronically Ill, Other (intubated, sedatede) - Head Exam Head Exam: NORMAL INSPECTION - ENT Exam Additional comments: ET tube in place - Respiratory Exam Respiratory Exam: Decreased Breath Sounds Additional comments: right anterior chest wall port in place - Cardiovascular Exam Cardiovascular Exam: +S1, +S2 - GI/Abdominal Exam GI & Abdominal Exam: Soft. absent: Tenderness Assessment and Plan - Assessment and Plan (Free Text) Plan: Assessment new onset hypoxic respiratory failure, now intubated, with SIRS, R/O severe sepsis from hospital-acquired pneumonia on top of worsening lung cancer; new onset fever R/O bacteremia related to port, R/O Influenza S/P sepsis due to multifocal HCAP in this patient with stage 4 lung cancer, S/P confusion consider toxic-metabolic encephalopathy small cell lung cancer stage 4 on radiation and chemotherapy COPD atrial fibrillation gastritis Plan continue Vancomycin and Merrem day 4; will repeat blood and sputum cx and give a dose of Daptomycin; will get rapid flu test and start Tamiflu overall prognosis is poor
[2018-05-09] MEDS ORDERED: DAPTOmycin 500 mg Inj (Cubicin) IV ONE (12:15)
[2018-05-09] MEDS: Insulin Lispro (HUMAlog) HIGH Coverage SC SCH ×3 (12:47→21:39)
[2018-05-09] MEDS: NOREPINEPHRINE BIT/0.9 % NACL 4 MG/250 ML BAG IV PRN (14:00)
--- NOTE | 2018-05-09 16:07 | PN ---
DATE: 05/09/2018 PULMONARY CRITICAL CARE PROGRESS NOTE REFERRING PHYSICIAN: Erasmo Briggs MD SUBJECTIVE: The patient is still intubated, sedated with fever early this morning. Endotracheal tube was repositioned this morning. The patient tachycardic today. OBJECTIVE: GENERAL: Intubated and sedated. VITAL SIGNS: Temperature 100.6, pulse 104, blood pressure 120/82, oxygen saturation 100%. HEENT: NG tube in place. Moist mucous membranes NECK: Supple. No JVD. RESPIRATORY: Fair airflow. CARDIOVASCULAR: Tachycardiac, irregular. ABDOMEN: No distention. No organomegaly. Soft. EXTREMITIES: No bilateral lower extremity edema. NEUROLOGIC: Intubated and sedated. MEDICATIONS: Tylenol 650 mg every 6 hours p.r.n. for mild pain, Mucomyst 4 mL inhalation twice a day, amiodarone in dextrose 360 mg in 200 mL every 12 hours, Eliquis 5 mg twice a day, aspirin 300 mg rectally daily, Tessalon Perles 100 mg 3 times a day p.r.n., Pulmicort 0.5 mg inhalation every 12 hours, Precedex 400 mcg every 24 hours p.r.n., digoxin 0.25 mg IV push one dose today, Cardizem 120 mg daily, Lovenox 60 mg every 12 hours, Lasix 40 mg twice a day, Robitussin DM 5 mL every 4 hours p.r.n., Humalog sliding scale a.c. and at bedtime, Xopenex 0.63 mg inhalation every 6 hours p.r.n., Xopenex 0.63 mg inhalation 3 times a day, meropenem 1 g every 8 hours, Solu-Medrol 40 mg every 12 hours, morphine 2 mg every 4 hours p.r.n., nitroglycerin topically every 6 hours, Levophed p.r.n., Tamiflu 75 mg twice a day, Protonix injection 40 mg daily, propofol 1000 mg p.r.n., sodium chloride 0.9% 1000 mL 100 mL per hour, sotalol 40 mg twice a day, tramadol 50 mg every 8 hours p.r.n., vancomycin 1 g every 12 hours, verapamil 2.5 mg every 6 hours p.r.n. for heart rate greater than 130. LABORATORY DATA: WBC 19.5, RBC 3.42, hemoglobin 9.8, hematocrit 31.2 and platelets 105. PCO2 of 55, O2 68, HCO3 of 29.7. ABG; pH 7.34, FIO2 60. Sodium 139, potassium 3.7, chloride 104, carbon dioxide 30, anion gap 8, BUN 39, creatinine 0.8, GFR greater than 60, random glucose 216, calcium 7.5, total bilirubin 0.5. AST 95, ALT 66, alkaline phosphatase 125, total protein 6.2, albumin 2.6, globulin 3.6, albumin-globulin ratio 0.7. Procalcitonin 0.92. Influenza type A and B negative. Blood cultures preliminary, no growth after 3 days. Chest x-ray shows no change in bilateral alveolar infiltrates and vascular congestion, endotracheal tube and nasogastric tube in satisfactory position. EKG shows atrial flutter with variable AV block. IMPRESSION AND PLAN: Unresectable lung cancer requiring radiation chemotherapy in the past, chronic obstructive lung disease; paroxysmal atrial fibrillation; respiratory failure on ventilator; cardiac infarction, healthcare associated pneumonia, failure to thrive, sepsis. The patient with acute lung injury possibly chemotherapy induced. Outpatient CT scan showed improvement in tumor burden. Dr. Yi discussed the case with Dr. Bullard. Case discussed with resident. Cardiology followup. Continue antibiotic therapy covering Gram-negative and Gram-positive. Maintain oxygen saturation greater than 92%, continue steroids, inhaled bronchodilators. We will repeat ABG, chest x-ray and labs in the morning. Critical care time spent more than 35 minutes. The patient was seen and examined with Dr. Yi. Discussed assessment and plan as described above. Thank you for this consult. We will follow with you. Juan Carlos Paul APN Aura Yi MD [id number]
[2018-05-09] MEDS ORDERED: Amiodarone 150 mg/D5W 100 ml 150 MG/100 ML BAG IVPB ONE (22:15)
[2018-05-10] MEDS: Morphine 2 mg/ml ISec IVP PRN ×2 (00:35→05:21)
[2018-05-10] MEDS: Amiodarone 360 mg/D5W 200 ml 360 MG/200 ML BAG IV SCH (01:29)
[2018-05-10] MEDS: Vancomycin 1gm in NS 250ml 1 GM/250 ML BAG IVPB SCH ×2 (03:00→17:37)
[2018-05-10] MEDS: Meropenem IV 1 gm in NS 1 GM/50 ML BAG IVPB SCH ×3 (05:21→22:09)
[2018-05-10] MEDS: Dexmedetomidine 400mcg/100mL 400 MCG/100 ML BOTTLE IV PRN ×3 (05:21→22:46)
[2018-05-10] MEDS: Nitroglycerin 2% Ointment Foilpak UD TOP SCH ×4 (05:22→22:00)
[2018-05-10 05:30] LABS: ARTERIAL BLOOD GAS HCO3 33.5 mmol/L (21-28); ARTERIAL BLOOD GAS HEMOGLOBIN 9.6 g/dL (11.7-17.4); ARTERIAL BLOOD GAS O2 CONTENT 12.5 ML/dl (15-23); ARTERIAL BLOOD GAS O2 SAT 95.8 % (95-98); ARTERIAL BLOOD GAS PCO2 46 mm/Hg (35-45); ARTERIAL BLOOD GAS PH 7.47 (7.35-7.45); ARTERIAL BLOOD GAS TCO2 34.9 mmol.L (22-28)
[2018-05-10 06:31] LABS: BASO # 0.01 K/mm3 (0.0-2.0); BASO % 0.1 % (0.0-3.0); EOS % 0.1 % (1.5-5.0); GRAN # 11.99 (1.4-6.5); GRAN % 90.3 % (50.0-68.0); LYMPH # 0.9 (1.2-3.4); LYMPH % 6.4 % (22.0-35.0); MEAN CELL VOLUME 93.7 fl (80.0-105.0); MEAN CORPUSCULAR HEMOGLOBIN 28.6 pg (25.0-35.0); MEAN CORPUSCULAR HGB CONC 30.5 g/dl (31.0-37.0); MEAN PLATELET VOLUME 11.1 fl (7.0-11.0); MONO # 0.4 (0.1-0.6); MONO % 3.1 % (1.0-6.0); RBC 2.55 10^6/uL (3.5-6.1); RED CELL DISTRIBUTION WIDTH 18.1 % (11.5-14.5); WHITE BLOOD COUNT 13.3 10^3/uL (4.5-11.0)
[2018-05-10] MEDS: Budesonide 0.5 mg/2 ml Inhal Susp UD IH SCH ×2 (07:32→19:56)
[2018-05-10] MEDS: Levalbuterol 0.63 MG/3 ML Inhal Soln UD IH SCH ×3 (07:32→19:56)
[2018-05-10 07:42] LABS: ALB/GLOB RATIO 0.8 (1.1-1.8); ALBUMIN 2.7 g/dL (3.0-4.8); ALT/SGPT 72 U/L (7-56); AST/SGOT 65 U/L (17-59); BLOOD UREA NITROGEN 41 mg/dL (7-21); CALCIUM 7.6 mg/dL (8.4-10.5); GFR NON-AFRICAN AMERICAN > 60
[2018-05-10] MEDS ORDERED: Digoxin 500 mcg/2ml (0.5 mg/2ml) Inj IVP ONE ×2 (07:43→15:00)
[2018-05-10] MEDS ORDERED: Digoxin 500 mcg/2ml (0.5 mg/2ml) Inj ONE (07:44)
[2018-05-10] MEDS ORDERED: Metoprolol 1 mg/ml Inj IVP ONE (07:46)
[2018-05-10] MEDS: NOREPINEPHRINE BIT/0.9 % NACL 4 MG/250 ML BAG IV PRN ×2 (07:48→08:24)
[2018-05-10] MEDS ORDERED: Morphine 2 mg/ml ISec IVP STA (08:11)
[2018-05-10] MEDS: Insulin Lispro (HUMAlog) HIGH Coverage SC SCH ×4 (08:16→22:51)
--- NOTE | 2018-05-10 08:50 | RAD ---
Date of service: 05/10/2018 HISTORY: follow up infiltrate COMPARISON: 05/09/2018 FINDINGS: LUNGS: There is slight improvement in the bilateral infiltrates. PLEURA: No significant pleural effusion identified, no pneumothorax apparent. CARDIOVASCULAR: No aortic atherosclerotic calcification present. Mild cardiomegaly no pulmonary vascular congestion. OSSEOUS STRUCTURES: No significant abnormalities. VISUALIZED UPPER ABDOMEN: Normal. OTHER FINDINGS: Central lines and tubes unchanged IMPRESSION: Slight improvement in bilateral infiltrates
--- NOTE | 2018-05-10 09:32 | CP.CCUPN ---
<Haley Mckeon - Last Filed: 05/10/18 12:12> CCU Subjective - Physician Review Subjective (Free Text): Haley Mckeon, PGY-1, ICU Progress Note for Dr. Gtz Patient seen and evaluated at bedside. Overnight, patient's heart rate normal sinus rhythm but became tachycardia in the 140-150s at 6:00 this morning. Due to lowering of blood pressure in 70s/40s overnight around 2:00 in the morning, patient's levophed was increased to 4 mcg/min. Due to suspicion of pain and anxiety, precedex was increased to 0.8 overnight. Patient is currently intubated and sedated with vent settings of 400/18/12/60%, but has been overbreathing the ventilator with a respiratory rate of 35. CCU Objective - Vital Signs / Intake & Output Vital Signs (Last 4 hours): Vital Signs Temp Pulse Resp BP Pulse Ox 05/10/18 07:52 159 H 05/10/18 07:40 35 H 88 L 05/10/18 06:34 98.8 F 159 H 119/93 H 90 L 05/10/18 06:04 98.2 F 149 H 153/98 H 93 L 05/10/18 06:00 98.1 F 140 H 93 L 05/10/18 05:29 97.2 F L 113 H 129/78 92 L Intake and Output (Last 8hrs): Intake & Output 05/09/18 05/10/18 05/10/18 22:59 06:59 14:59 Intake Total 1401.2 200 250 Output Total 1700 Balance -298.8 200 250 Intake: IV 1401.2 200 250 Left 900 Right Subclavian 242 Output: Urine 1700 Urethral (Yang) 1700 - Physical Exam Head: Positive for: Atraumatic, Normocephalic Pupils: Positive for: PERRL Extroacular Muscles: Positive for: EOMI Conjunctiva: Positive for: Normal Mouth: Positive for: Moist Mucous Membranes Neck: Positive for: Normal Range of Motion Respiratory/Chest: Positive for: Respiratory Distress, Wheezes, Rales, Other (currently on ventilator). Negative for: Accessory Muscle Use Cardiovascular: Positive for: Normal S1, S2, Irregular Rhythm, Tachycardic. Negative for: Murmurs Abdomen: Negative for: Tenderness, Distention, Peritoneal Signs Back: Positive for: Normal Inspection Upper Extremity: Positive for: Normal Inspection. Negative for: Cyanosis, Edema Lower Extremity: Positive for: Normal Inspection. Negative for: Edema Neurological: Positive for: CN II-XII Intact, Other (intubated) Skin: Positive for: Warm, Dry, Normal Color, Other (R IJ central port noted). Negative for: Rashes - Medications Active Medications: Active Medications Generic Name Dose Route Start Last Admin Trade Name Freq PRN Reason Stop Dose Admin Acetaminophen 650 mg 05/04/18 09:27 05/09/18 21:38 Tylenol 325mg Tab PO 650 mg Q6H PRN Administration Pain, Mild (1-3) Apixaban 5 mg 04/27/18 10:00 05/06/18 18:44 Eliquis PO 5 mg BID ZARI Administration Protocol Aspirin 300 mg 05/08/18 10:00 05/09/18 09:29 Aspirin Supp RC 300 mg DAILY ZARI Administration Benzonatate 100 mg 04/26/18 22:48 05/05/18 04:09 Tessalon Perles PO 100 mg TID PRN Administration Cough Budesonide 0.5 mg 04/27/18 20:00 05/10/18 07:32 Pulmicort Respules IH 0.5 mg [id number] ZARI Administration Dextrose 0 ml 05/09/18 10:48 Dextrose 50% Inj IV STAT PRN Hypoglycemia Protocol Protocol Diltiazem HCl 120 mg 04/27/18 10:00 05/07/18 11:16 Cardizem Cd PO Not Given DAILY ZARI Enoxaparin Sodium 60 mg 05/07/18 10:15 05/09/18 22:16 Lovenox SC 60 mg Q12H ZARI Administration Protocol Furosemide 40 mg 05/08/18 10:00 05/09/18 17:07 Lasix IV 40 mg BID ZARI Administration Guaifenesin/Dextromethorphan 5 ml 04/26/18 22:53 05/05/18 04:09 Robitussin Dm PO 5 ml Q4H PRN Administration Cough Meropenem 1 gm in 50 mls @ 100 mls/hr 05/05/18 15:15 05/10/18 05:21 Merrem Iv 1 Gm Premix IVPB 100 mls/hr Q8 ZARI Administration Protocol Vancomycin HCl 1 gm in 250 mls @ 167 mls/hr 05/05/18 15:15 05/10/18 03:00 Vancomycin 1gm IVPB 167 mls/hr Q12H ZARI Administration Protocol Propofol 1,000 mg in 100 mls @ 2.15 mls/hr 05/05/18 15:24 05/09/18 08:19 Diprivan IV 10 mcg/kg/min .Q24H PRN 4.3 mls/hr TITRATE PER MD ORDER Titration Protocol 5 MCG/KG/MIN Sodium Chloride 1,000 mls @ 100 mls/hr 05/06/18 20:42 05/06/18 20:30 Sodium Chloride 0.9% IV 100 mls/hr .Q10H ZARI Administration NOREPINEPHRINE BIT/0.9 % NACL 4 mg in 250 mls @ 15 mls/hr 05/08/18 17:16 05/10/18 08:24 Levophed 4 Mg/ 250 Ml Ns Premixed IV 2 mcg/min .[id number] PRN 7.5 mls/hr TITRATE PER MD ORDER Administration Protocol 4 MCG/MIN Amiodarone HCl/Dextrose 360 mg in 200 mls @ 16.667 mls/hr 05/09/18 00:00 05/10/18 01:29 Nexterone 360 Mg In D5w 200 Ml (Premix) IV Not Given .Q12H ZARI Protocol 0.5 MG/MIN Dexmedetomidine HCl 400 mcg in 100 mls @ 3.357 mls/hr 05/09/18 10:31 05/10/18 06:28 Precedex 400mcg/100ml IV 0.7 mcg/kg/hr .Q24H PRN 11.748 mls/hr Sedation Titration Protocol 0.2 MCG/KG/HR Dextrose 1,000 mls @ 0 mls/hr 05/09/18 10:48 Dextrose 5% In Water 1000 Ml IV .Q0M PRN Hypoglycemia Protocol Protocol Per Protocol Insulin Human Lispro 0 units 05/09/18 11:30 05/10/18 08:16 Humalog High SC 4 u ACHS ZARI Administration Protocol Levalbuterol HCl 0.63 mg 04/27/18 12:16 05/08/18 03:00 Xopenex IH 0.63 mg [id number] PRN Administration Shortness of Breath Levalbuterol HCl 0.63 mg 04/28/18 20:00 05/10/18 07:32 Xopenex IH 0.63 mg TIDRESP ZARI Administration Methylprednisolone 40 mg 05/07/18 10:15 05/09/18 21:39 Solu-Medrol IVP 40 mg Q12 ZARI Administration Morphine Sulfate 2 mg 05/06/18 12:03 05/10/18 05:21 Morphine IVP 2 mg Q4H PRN Administration Pain, severe (8-10) Nitroglycerin 0.5 ea 05/07/18 09:30 05/10/18 05:22 Nitro-Bid 2% Oint TOP Not Given Q6H [facility] Pantoprazole Sodium 40 mg 05/02/18 21:00 05/08/18 05:00 Protonix Ec Tab PO 40 mg 0600 [facility] Administration Pantoprazole Sodium 40 mg 05/09/18 10:00 05/09/18 09:34 Protonix Inj IVP 40 mg DAILY ZARI Administration Sotalol HCl 40 mg 05/09/18 10:00 05/09/18 17:10 Betapace PO 40 mg BID ZARI Administration Tramadol HCl 50 mg 05/04/18 09:27 05/05/18 04:09 Ultram PO 50 mg Q8H PRN Administration Pain, moderate (4-7) Verapamil HCl 2.5 mg 05/09/18 18:00 05/10/18 05:24 Verapamil Inj IVP 2.5 mg Q6 ZARI Administration - Patient Studies Lab Studies: Microbiology Studies 05/09/18 08:30 Blood Culture - Preliminary Blood-Venous NO GROWTH AFTER 24 HOURS 05/09/18 08:10 Blood Culture - Preliminary Blood-Venous NO GROWTH AFTER 24 HOURS 05/05/18 16:00 Blood Culture - Preliminary Blood-Venous NO GROWTH AFTER 4 DAYS 05/05/18 15:30 Blood Culture - Preliminary Blood-Venous NO GROWTH AFTER 4 DAYS Lab Studies 05/10/18 05/10/18 05/10/18 Range/Units 07:18 05:35 05:00 WBC 13.3 H D (4.5-11.0) 10^3/uL RBC 2.55 L (3.5-6.1) 10^6/uL Hgb 7.3 L D (14.0-18.0) g/dL Hct 23.9 L (42.0-52.0) % MCV 93.7 (80.0-105.0) fl MCH 28.6 (25.0-35.0) pg MCHC 30.5 L (31.0-37.0) g/dl RDW 18.1 H (11.5-14.5) % Plt Count 70 L (120.0-450.0) 10^3/uL MPV 11.1 H (7.0-11.0) fl Gran % 90.3 H (50.0-68.0) % Lymph % (Auto) 6.4 L (22.0-35.0) % Stark % (Auto) 3.1 (1.0-6.0) % Eos % (Auto) 0.1 L (1.5-5.0) % Baso % (Auto) 0.1 (0.0-3.0) % Gran # 11.99 H (1.4-6.5) Lymph # (Auto) 0.9 L (1.2-3.4) Stark # (Auto) 0.4 (0.1-0.6) Eos # (Auto) 0.0 (0.0-0.7) Baso # (Auto) 0.01 (0.0-2.0) K/mm3 pCO2 46 H (35-45) mm/Hg pO2 61.0 L (80-100) mm/Hg HCO3 33.5 H (21-28) mmol/L ABG pH 7.47 H (7.35-7.45) ABG Total CO2 34.9 H (22-28) mmol.L ABG O2 Saturation 95.8 (95-98) % ABG O2 Content 12.5 L (15-23) ML/dl ABG Base Excess 8.8 H (-2.0-3.0) mmol/L ABG Hemoglobin 9.6 L (11.7-17.4) g/dL ABG Carboxyhemoglobin 2.7 H (0.5-1.5) % POC ABG HHb (Measured) 4.0 (0-5) % ABG Methemoglobin 1.0 (0.0-3.0) % ABG O2 Capacity 13.0 L (16-24) mL/dl Hgb O2 Saturation 92.3 L (95.0-98.0) % FiO2 60.0 % Sodium 143 (132-148) mmol/L Potassium 3.8 (3.6-5.0) mmol/L Chloride 105 (98-107) mmol/L Carbon Dioxide 34 H (21-33) mmol/L Anion Gap 8 L (10-20) BUN 41 H (7-21) mg/dL Creatinine 0.8 (0.8-1.5) mg/dl Est GFR ( Amer) > 60 Est GFR (Non-Af Amer) > 60 POC Glucose (mg/dL) (65-110) mg/dL Random Glucose 235 H (70-110) mg/dL Calcium 7.6 L (8.4-10.5) mg/dL Total Bilirubin 0.5 (0.2-1.3) mg/dL AST 65 H D (17-59) U/L ALT 72 H (7-56) U/L Alkaline Phosphatase 148 H (38-126) U/L Total Protein 6.2 (5.8-8.3) g/dL Albumin 2.7 L (3.0-4.8) g/dL Globulin 3.6 gm/dL Albumin/Globulin Ratio 0.8 L (1.1-1.8) Procalcitonin (0.19-0.49) NG/ML 05/09/18 05/09/18 05/09/18 Range/Units 21:25 15:32 11:51 WBC (4.5-11.0) 10^3/uL RBC (3.5-6.1) 10^6/uL Hgb (14.0-18.0) g/dL Hct (42.0-52.0) % MCV (80.0-105.0) fl MCH (25.0-35.0) pg MCHC (31.0-37.0) g/dl RDW (11.5-14.5) % Plt Count (120.0-450.0) 10^3/uL MPV (7.0-11.0) fl Gran % (50.0-68.0) % Lymph % (Auto) (22.0-35.0) % Stark % (Auto) (1.0-6.0) % Eos % (Auto) (1.5-5.0) % Baso % (Auto) (0.0-3.0) % Gran # (1.4-6.5) Lymph # (Auto) (1.2-3.4) Stark # (Auto) (0.1-0.6) Eos # (Auto) (0.0-0.7) Baso # (Auto) (0.0-2.0) K/mm3 pCO2 (35-45) mm/Hg pO2 (80-100) mm/Hg HCO3 (21-28) mmol/L ABG pH (7.35-7.45) ABG Total CO2 (22-28) mmol.L ABG O2 Saturation (95-98) % ABG O2 Content (15-23) ML/dl ABG Base Excess (-2.0-3.0) mmol/L ABG Hemoglobin (11.7-17.4) g/dL ABG Carboxyhemoglobin (0.5-1.5) % POC ABG HHb (Measured) (0-5) % ABG Methemoglobin (0.0-3.0) % ABG O2 Capacity (16-24) mL/dl Hgb O2 Saturation (95.0-98.0) % FiO2 % Sodium (132-148) mmol/L Potassium (3.6-5.0) mmol/L Chloride (98-107) mmol/L Carbon Dioxide (21-33) mmol/L Anion Gap (10-20) BUN (7-21) mg/dL Creatinine (0.8-1.5) mg/dl Est GFR ( Amer) Est GFR (Non-Af Amer) POC Glucose (mg/dL) 215 H 217 H 216 H (65-110) mg/dL Random Glucose (70-110) mg/dL Calcium (8.4-10.5) mg/dL Total Bilirubin (0.2-1.3) mg/dL AST (17-59) U/L ALT (7-56) U/L Alkaline Phosphatase (38-126) U/L Total Protein (5.8-8.3) g/dL Albumin (3.0-4.8) g/dL Globulin gm/dL Albumin/Globulin Ratio (1.1-1.8) Procalcitonin (0.19-0.49) NG/ML 05/09/18 05/09/18 05/08/18 Range/Units 08:10 08:08 16:29 WBC (4.5-11.0) 10^3/uL RBC (3.5-6.1) 10^6/uL Hgb (14.0-18.0) g/dL Hct (42.0-52.0) % MCV (80.0-105.0) fl MCH (25.0-35.0) pg MCHC (31.0-37.0) g/dl RDW (11.5-14.5) % Plt Count (120.0-450.0) 10^3/uL MPV (7.0-11.0) fl Gran % (50.0-68.0) % Lymph % (Auto) (22.0-35.0) % Stark % (Auto) (1.0-6.0) % Eos % (Auto) (1.5-5.0) % Baso % (Auto) (0.0-3.0) % Gran # (1.4-6.5) Lymph # (Auto) (1.2-3.4) Stark # (Auto) (0.1-0.6) Eos # (Auto) (0.0-0.7) Baso # (Auto) (0.0-2.0) K/mm3 pCO2 (35-45) mm/Hg pO2 (80-100) mm/Hg HCO3 (21-28) mmol/L ABG pH (7.35-7.45) ABG Total CO2 (22-28) mmol.L ABG O2 Saturation (95-98) % ABG O2 Content (15-23) ML/dl ABG Base Excess (-2.0-3.0) mmol/L ABG Hemoglobin (11.7-17.4) g/dL ABG Carboxyhemoglobin (0.5-1.5) % POC ABG HHb (Measured) (0-5) % ABG Methemoglobin (0.0-3.0) % ABG O2 Capacity (16-24) mL/dl Hgb O2 Saturation (95.0-98.0) % FiO2 % Sodium (132-148) mmol/L Potassium (3.6-5.0) mmol/L Chloride (98-107) mmol/L Carbon Dioxide (21-33) mmol/L Anion Gap (10-20) BUN (7-21) mg/dL Creatinine (0.8-1.5) mg/dl Est GFR ( Amer) Est GFR (Non-Af Amer) POC Glucose (mg/dL) 273 H 157 H (65-110) mg/dL Random Glucose (70-110) mg/dL Calcium (8.4-10.5) mg/dL Total Bilirubin (0.2-1.3) mg/dL AST (17-59) U/L ALT (7-56) U/L Alkaline Phosphatase (38-126) U/L Total Protein (5.8-8.3) g/dL Albumin (3.0-4.8) g/dL Globulin gm/dL Albumin/Globulin Ratio (1.1-1.8) Procalcitonin 0.62 H (0.19-0.49) NG/ML Laboratory Results - last 24 hr 05/08/18 05/09/18 05/09/18 16:29 08:08 08:10 WBC RBC Hgb Hct MCV MCH MCHC RDW Plt Count MPV Gran % Lymph % (Auto) Stark % (Auto) Eos % (Auto) Baso % (Auto) Gran # Lymph # (Auto) Stark # (Auto) Eos # (Auto) Baso # (Auto) pCO2 pO2 HCO3 ABG pH ABG Total CO2 ABG O2 Saturation ABG O2 Content ABG Base Excess ABG Hemoglobin ABG Carboxyhemoglobin POC ABG HHb (Measured) ABG Methemoglobin ABG O2 Capacity Hgb O2 Saturation FiO2 Sodium Potassium Chloride Carbon Dioxide Anion Gap BUN Creatinine Est GFR ( Amer) Est GFR (Non-Af Amer) POC Glucose (mg/dL) 157 H 273 H Random Glucose Calcium Total Bilirubin AST ALT Alkaline Phosphatase Total Protein Albumin Globulin Albumin/Globulin Ratio Procalcitonin 0.62 H 05/09/18 05/09/18 05/09/18 11:51 15:32 21:25 WBC RBC Hgb Hct MCV MCH MCHC RDW Plt Count MPV Gran % Lymph % (Auto) Stark % (Auto) Eos % (Auto) Baso % (Auto) Gran # Lymph # (Auto) Stark # (Auto) Eos # (Auto) Baso # (Auto) pCO2 pO2 HCO3 ABG pH ABG Total CO2 ABG O2 Saturation ABG O2 Content ABG Base Excess ABG Hemoglobin ABG Carboxyhemoglobin POC ABG HHb (Measured) ABG Methemoglobin ABG O2 Capacity Hgb O2 Saturation FiO2 Sodium Potassium Chloride Carbon Dioxide Anion Gap BUN Creatinine Est GFR ( Amer) Est GFR (Non-Af Amer) POC Glucose (mg/dL) 216 H 217 H 215 H Random Glucose Calcium Total Bilirubin AST ALT Alkaline Phosphatase Total Protein Albumin Globulin Albumin/Globulin Ratio Procalcitonin 05/10/18 05/10/18 05/10/18 05:00 05:35 07:18 WBC 13.3 H D RBC 2.55 L Hgb 7.3 L D Hct 23.9 L MCV 93.7 MCH 28.6 MCHC 30.5 L RDW 18.1 H Plt Count 70 L MPV 11.1 H Gran % 90.3 H Lymph % (Auto) 6.4 L Stark % (Auto) 3.1 Eos % (Auto) 0.1 L Baso % (Auto) 0.1 Gran # 11.99 H Lymph # (Auto) 0.9 L Stark # (Auto) 0.4 Eos # (Auto) 0.0 Baso # (Auto) 0.01 pCO2 46 H pO2 61.0 L HCO3 33.5 H ABG pH 7.47 H ABG Total CO2 34.9 H ABG O2 Saturation 95.8 ABG O2 Content 12.5 L ABG Base Excess 8.8 H ABG Hemoglobin 9.6 L ABG Carboxyhemoglobin 2.7 H POC ABG HHb (Measured) 4.0 ABG Methemoglobin 1.0 ABG O2 Capacity 13.0 L Hgb O2 Saturation 92.3 L FiO2 60.0 Sodium 143 Potassium 3.8 Chloride 105 Carbon Dioxide 34 H Anion Gap 8 L BUN 41 H Creatinine 0.8 Est GFR ( Amer) > 60 Est GFR (Non-Af Amer) > 60 POC Glucose (mg/dL) Random Glucose 235 H Calcium 7.6 L Total Bilirubin 0.5 AST 65 H D ALT 72 H Alkaline Phosphatase 148 H Total Protein 6.2 Albumin 2.7 L Globulin 3.6 Albumin/Globulin Ratio 0.8 L Procalcitonin Radiology Impressions: Radiology Impressions Chest X-Ray 05/09/18 08:00 IMPRESSION: The concern for a possible small right inferolateral pneumothorax has been raised and directly discussed with the nurse taking care this patient qamar in the CCU on 05/09/2018 at 10:35 a.m.. It was also Re recommended that the NG tube be advanced further into the stomach as has been noted previously. The other findings referenced above regarding the lung appearance are similar with the prior studies-coalescent areas of pulmonary venous congestion and/or coalescent areas of interstitial and lesser airspace infiltrates are all in the differential considerations Chest X-Ray 05/09/18 09:49 IMPRESSION: Interval repositioning of the nasogastric tube now appears satisfactory. Endotracheal tube appears satisfactory. No change in the right central line with tip in this right atrium-correlate clinically The bilateral patchy interstitial and bilateral coalescent vague low-density airspace opacities are renoted no change in the left lung appreciated. Some slight increased density consolidation in the mid right lung zone may be impart hypoventilatory accentuation given the current more shallow lung volumes. Continued follow-up recommended. Chest X-Ray 05/09/18 10:38 IMPRESSION: No change in bilateral alveolar infiltrates and vascular congestion Chest X-Ray 05/10/18 07:00 IMPRESSION: Slight improvement in bilateral infiltrates EKG/Cardiology Studies: Cardiology / EKG Studies 05/09/18 10:33 EKG [ELECTROCARDIOGRAM] Routine Comment: Reason For Exam: evaluation 05/10/18 06:32 EKG [ELECTROCARDIOGRAM] Stat Comment: Reason For Exam: hr 159 Fingerstick Blood Sugar Results: 234 Review of Systems - Review of Systems Systems not reviewed;Unavailable: Intubated Critical Care Progress Note - Ventilator Checklist Head of Bed 30 Degrees: Yes PUD Prophalyxis: Yes DVT Prophylaxis: Yes - Vent Settings MODE:: PRVC TIDAL VOLUME:: 400 RESP RATE:: 18 FIO2:: 60 PEEP:: 12 - Nutrition Nutrition: Nutrition Category Date Time Status NPO Diet [DIET] Diets 05/06/18 Breakfast Ordered Assessment/Plan - Assessment and Plan (Free Text) Assessment: 77 year old male with past medical history of 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 Patient was diagnosed with sepsis 2/2 to HCAP. On 05/05, patient became hypoxia and was in respiratory distress. Patient was intubated and sedated with propofol and versed. Plan: Neuro: Status post intubation -Intubated and started on precedex 0.8. Cardio: NSTEMI -EKG 05/10: sinus tachycardia with ST depression V1-V4 with HR: 156 -Troponin: 10.9, 9.66, 8.96, 6.33 -Continue Aspirin 300 mg rectally -Continue Lovenox 60 mg Q12 -Continue Betapace 40 mg BID Atrial fibrillation-resolved -EKG 05/10: sinus tachycardia with ST depression V1-V4 with HR: 156 -Troponin: 10.9, 9.66, 8.96, 6.33 -Continue Lovenox 60 mg Q12 -Continue sotalol 40 mg BID -Continue verapamil 2.5 mg IV Q6 -Cardizem 120 mg PO daily held -Eliquis 5 mg BID held -Maintain MAP>65. -Monitor for S/S, HD compromise. Sinus tachycardia -Patient given one dose of digoxin 0.25 this morning. Given one dose of lopressor 5 mg IV. Initial improvement in heart rate, however, patient's heart rate has worsened again -Continue with verapamil 2.5 mg IV Q6 -Was hypotensive overnight, but is currently hypertensive with SBP in the 140s. Titrate down levophed. Elevated BNP -BNP: 3240 -Echocardiogram 05/07: EF: 49.3%, trace AR, MR, RVSP: 50 -Patient currently has a positive fluid intake to output. As a result, patient will now be fluid restricted and patient's respiratory status will be monitored as patient is diuresed. -Likely diastolic congestive heart failure -Sotalol 40 mg PO BID -Lasix 40 mg BID Pulm: Hypoxic respiratory failure 2/2 to ARDS from small cell lung carcinoma -Patient intubated and sedated with settings 400/18/12/60%. -Maintain O2 saturation>92%. -ABG 05/10: pH: 7.47, pO2: 61 pCO2: 46 -Daily ABG and CXR -Weaning and sedation trials daily -Elevate bed to 30 degrees -Oral protective hygiene daily -Conservative fluid management continued COPD -Continue with methylprednisone 40 mg Q12, pulmicort 0.5 mg IH Q12, and xopenex 0.63 mg IH TID Multifocal pneumonia -CXR 05/10: extensive bilateral pulmonary opacities. improved from yesterday -Chest CT 04/27: multifocal pneumonia -Continue with vancomycin 1 gm Q12 and merrem 1 gm Q8 day 5 GI: Elevated LFTs -Improving LFTs -Likely due to congestive hepatopathy -Continue to trend via CMP Diet -NPO. -Currently getting Jevity tube feedings with starting rate at 20 cc/hr and will increase by 10 cc/hr up to goal rate of 60 cc/hr GI prophylaxis -Protonix 40 mg daily /Nephro: -BUN/Cr stable at 41/0.8 -Yang in place with sufficient output -Continue monitoring. -Replete electrolytes as needed. -Maintain euvolemia. Endocrinology: -Random glucose: 235 -HgbA1c: 6.2 -High dose sliding scale insulin -Maintain euglycemia. Heme/Onc: Anemia -H/H decreased to 7.3/23.9 -Consider transfusion if Hgb<7 -No signs of HD compromise. -Continue monitoring H/H DVT prophylaxis -Eliquis 5 mg BID currently held -Lovenox 60 mg Q12 as therapeutic anticoagulation for NSTEMI Elevated D-dimer -D-dimer elevated at 6149 likely due to metastasis -Bilateral lower extremity ultrasound was negative for DVT ID: Multifocal pneumonia -CXR 05/09: extensive bilateral pulmonary opacities. improved from previous CXR -Chest CT 04/27: multifocal pneumonia -Afebrile, leukocytosis improved to 13.3 from 19.5 -Blood culture was negative for 5 days upon admission. Blood culture reordered was negative for 4 days. -Follow up sputum culture -Procal 05/05: 0.55. Repeat procal was 0.62 -Vancomycin 1 gm Q12 day 5 -Merrem 1 gm Q8 day 5 -Nystatin 5 mg QID -Monitor for signs and symptoms of infection. Disposition: Dr. Gtz, Dr. Bullard, and I spoke to the family. Family understand very poor prognosis of the patient but are not ready for changing code status at this time. We will continue to follow up with family for updates. Patient seen and examined with Dr. Gtz. - Date & Time Date: 05/10/18 Time: 09:40 <Shay Gtz - Last Filed: 05/10/18 15:01> CCU Objective - Vital Signs / Intake & Output Vital Signs (Last 4 hours): Vital Signs Temp Pulse BP Pulse Ox 05/10/18 12:04 97.5 F L 76 99/58 L 96 05/10/18 12:00 97.5 F L 83 96 05/10/18 11:46 77 91/31 L 05/10/18 11:34 98.6 F 81 91/31 L 93 L 05/10/18 11:08 99.0 F 76 92/52 L 91 L 05/10/18 11:04 99.0 F 85 85/54 L 92 L Intake and Output (Last 8hrs): Intake & Output 05/09/18 05/10/18 05/10/18 22:59 06:59 14:59 Intake Total 1401.2 200 250 Output Total 1700 Balance -298.8 200 250 Intake: IV 1401.2 200 250 Left 900 Right Subclavian 242 Output: Urine 1700 Urethral (Yang) 1700 - Medications Active Medications: Active Medications Generic Name Dose Route Start Last Admin Trade Name Freq PRN Reason Stop Dose Admin Acetaminophen 650 mg 05/04/18 09:27 05/09/18 21:38 Tylenol 325mg Tab PO 650 mg Q6H PRN Administration Pain, Mild (1-3) Apixaban 5 mg 04/27/18 10:00 05/06/18 18:44 Eliquis PO 5 mg BID ZARI Administration Protocol Aspirin 300 mg 05/08/18 10:00 05/10/18 09:44 Aspirin Supp RC 300 mg DAILY ZARI Administration Benzonatate 100 mg 04/26/18 22:48 05/05/18 04:09 Tessalon Perles PO 100 mg TID PRN Administration Cough Budesonide 0.5 mg 04/27/18 20:00 05/10/18 07:32 Pulmicort Respules IH 0.5 mg [id number] ZARI Administration Dextrose 0 ml 05/09/18 10:48 Dextrose 50% Inj IV STAT PRN Hypoglycemia Protocol Protocol Digoxin 0.25 mg 05/10/18 15:00 Lanoxin IVP 05/10/18 15:01 ONCE ONE Diltiazem HCl 120 mg 04/27/18 10:00 05/07/18 11:16 Cardizem Cd PO Not Given DAILY ZARI Enoxaparin Sodium 60 mg 05/07/18 10:15 05/10/18 09:45 Lovenox SC 60 mg Q12H ZARI Administration Protocol Furosemide 40 mg 05/08/18 10:00 05/10/18 09:43 Lasix IV 40 mg BID ZARI Administration Guaifenesin/Dextromethorphan 5 ml 04/26/18 22:53 05/05/18 04:09 Robitussin Dm PO 5 ml Q4H PRN Administration Cough Meropenem 1 gm in 50 mls @ 100 mls/hr 05/05/18 15:15 05/10/18 05:21 Merrem Iv 1 Gm Premix IVPB 100 mls/hr Q8 ZARI Administration Protocol Vancomycin HCl 1 gm in 250 mls @ 167 mls/hr 05/05/18 15:15 05/10/18 03:00 Vancomycin 1gm IVPB 167 mls/hr Q12H ZARI Administration Protocol Propofol 1,000 mg in 100 mls @ 2.15 mls/hr 05/05/18 15:24 05/09/18 08:19 Diprivan IV 10 mcg/kg/min .Q24H PRN 4.3 mls/hr TITRATE PER MD ORDER Titration Protocol 5 MCG/KG/MIN Sodium Chloride 1,000 mls @ 100 mls/hr 05/06/18 20:42 05/06/18 20:30 Sodium Chloride 0.9% IV 100 mls/hr .Q10H ZARI Administration NOREPINEPHRINE BIT/0.9 % NACL 4 mg in 250 mls @ 15 mls/hr 05/08/18 17:16 05/10/18 08:24 Levophed 4 Mg/ 250 Ml Ns Premixed IV 2 mcg/min .[id number] PRN 7.5 mls/hr TITRATE PER MD ORDER Administration Protocol 4 MCG/MIN Amiodarone HCl/Dextrose 360 mg in 200 mls @ 16.667 mls/hr 05/09/18 00:00 05/10/18 01:29 Nexterone 360 Mg In D5w 200 Ml (Premix) IV Not Given .Q12H ZARI Protocol 0.5 MG/MIN Dexmedetomidine HCl 400 mcg in 100 mls @ 3.357 mls/hr 05/09/18 10:31 05/10/18 06:28 Precedex 400mcg/100ml IV 0.7 mcg/kg/hr .Q24H PRN 11.748 mls/hr Sedation Titration Protocol 0.2 MCG/KG/HR Dextrose 1,000 mls @ 0 mls/hr 05/09/18 10:48 Dextrose 5% In Water 1000 Ml IV .Q0M PRN Hypoglycemia Protocol Protocol Per Protocol Micafungin Sodium 100 mg/ 100 mls @ 100 mls/hr 05/10/18 13:15 Sodium Chloride IV 05/17/18 13:16 DAILY ZARI Protocol Insulin Human Lispro 0 units 05/09/18 11:30 05/10/18 11:52 Humalog High SC 4 u ACHS ZARI Administration Protocol Levalbuterol HCl 0.63 mg 04/27/18 12:16 05/08/18 03:00 Xopenex IH 0.63 mg [id number] PRN Administration Shortness of Breath Levalbuterol HCl 0.63 mg 04/28/18 20:00 05/10/18 13:12 Xopenex IH 0.63 mg TIDRESP ZARI Administration Methylprednisolone 40 mg 05/07/18 10:15 05/10/18 09:46 Solu-Medrol IVP 40 mg Q12 ZARI Administration Morphine Sulfate 2 mg 05/06/18 12:03 05/10/18 05:21 Morphine IVP 2 mg Q4H PRN Administration Pain, severe (8-10) Nitroglycerin 0.5 ea 05/07/18 09:30 05/10/18 05:22 Nitro-Bid 2% Oint TOP Not Given Q6H ZARI Pantoprazole Sodium 40 mg 05/02/18 21:00 05/08/18 05:00 Protonix Ec Tab PO 40 mg 0600 ZARI Administration Pantoprazole Sodium 40 mg 05/09/18 10:00 05/10/18 09:46 Protonix Inj IVP 40 mg DAILY ZARI Administration Sotalol HCl 40 mg 05/09/18 10:00 05/10/18 09:44 Betapace PO 40 mg BID ZARI Administration Tramadol HCl 50 mg 05/04/18 09:27 05/05/18 04:09 Ultram PO 50 mg Q8H PRN Administration Pain, moderate (4-7) Verapamil HCl 40 mg 05/10/18 14:00 Calan Tab PO TID ZARI Verapamil HCl 2.5 mg 05/10/18 12:31 Verapamil Inj IVP Q6 PRN FOR HR GREATER THAN 130 - Patient Studies Lab Studies: Microbiology Studies 05/09/18 08:30 Blood Culture - Preliminary Blood-Venous NO GROWTH AFTER 24 HOURS 05/09/18 08:10 Blood Culture - Preliminary Blood-Venous NO GROWTH AFTER 24 HOURS 05/05/18 16:00 Blood Culture - Preliminary Blood-Venous NO GROWTH AFTER 4 DAYS 05/05/18 15:30 Blood Culture - Preliminary Blood-Venous NO GROWTH AFTER 4 DAYS Lab Studies 05/10/18 05/10/18 05/10/18 Range/Units 07:18 05:35 05:00 WBC 13.3 H D (4.5-11.0) 10^3/uL RBC 2.55 L (3.5-6.1) 10^6/uL Hgb 7.3 L D (14.0-18.0) g/dL Hct 23.9 L (42.0-52.0) % MCV 93.7 (80.0-105.0) fl MCH 28.6 (25.0-35.0) pg MCHC 30.5 L (31.0-37.0) g/dl RDW 18.1 H (11.5-14.5) % Plt Count 70 L (120.0-450.0) 10^3/uL MPV 11.1 H (7.0-11.0) fl Gran % 90.3 H (50.0-68.0) % Lymph % (Auto) 6.4 L (22.0-35.0) % Stark % (Auto) 3.1 (1.0-6.0) % Eos % (Auto) 0.1 L (1.5-5.0) % Baso % (Auto) 0.1 (0.0-3.0) % Gran # 11.99 H (1.4-6.5) Lymph # (Auto) 0.9 L (1.2-3.4) Stark # (Auto) 0.4 (0.1-0.6) Eos # (Auto) 0.0 (0.0-0.7) Baso # (Auto) 0.01 (0.0-2.0) K/mm3 pCO2 46 H (35-45) mm/Hg pO2 61.0 L (80-100) mm/Hg HCO3 33.5 H (21-28) mmol/L ABG pH 7.47 H (7.35-7.45) ABG Total CO2 34.9 H (22-28) mmol.L ABG O2 Saturation 95.8 (95-98) % ABG O2 Content 12.5 L (15-23) ML/dl ABG Base Excess 8.8 H (-2.0-3.0) mmol/L ABG Hemoglobin 9.6 L (11.7-17.4) g/dL ABG Carboxyhemoglobin 2.7 H (0.5-1.5) % POC ABG HHb (Measured) 4.0 (0-5) % ABG Methemoglobin 1.0 (0.0-3.0) % ABG O2 Capacity 13.0 L (16-24) mL/dl Hgb O2 Saturation 92.3 L (95.0-98.0) % FiO2 60.0 % Sodium 143 (132-148) mmol/L Potassium 3.8 (3.6-5.0) mmol/L Chloride 105 (98-107) mmol/L Carbon Dioxide 34 H (21-33) mmol/L Anion Gap 8 L (10-20) BUN 41 H (7-21) mg/dL Creatinine 0.8 (0.8-1.5) mg/dl Est GFR ( Amer) > 60 Est GFR (Non-Af Amer) > 60 POC Glucose (mg/dL) (65-110) mg/dL Random Glucose 235 H (70-110) mg/dL Calcium 7.6 L (8.4-10.5) mg/dL Total Bilirubin 0.5 (0.2-1.3) mg/dL AST 65 H D (17-59) U/L ALT 72 H (7-56) U/L Alkaline Phosphatase 148 H (38-126) U/L Total Protein 6.2 (5.8-8.3) g/dL Albumin 2.7 L (3.0-4.8) g/dL Globulin 3.6 gm/dL Albumin/Globulin Ratio 0.8 L (1.1-1.8) Procalcitonin (0.19-0.49) NG/ML 05/09/18 05/09/18 05/09/18 Range/Units 21:25 15:32 11:51 WBC (4.5-11.0) 10^3/uL RBC (3.5-6.1) 10^6/uL Hgb (14.0-18.0) g/dL Hct (42.0-52.0) % MCV (80.0-105.0) fl MCH (25.0-35.0) pg MCHC (31.0-37.0) g/dl RDW (11.5-14.5) % Plt Count (120.0-450.0) 10^3/uL MPV (7.0-11.0) fl Gran % (50.0-68.0) % Lymph % (Auto) (22.0-35.0) % Stark % (Auto) (1.0-6.0) % Eos % (Auto) (1.5-5.0) % Baso % (Auto) (0.0-3.0) % Gran # (1.4-6.5) Lymph # (Auto) (1.2-3.4) Stark # (Auto) (0.1-0.6) Eos # (Auto) (0.0-0.7) Baso # (Auto) (0.0-2.0) K/mm3 pCO2 (35-45) mm/Hg pO2 (80-100) mm/Hg HCO3 (21-28) mmol/L ABG pH (7.35-7.45) ABG Total CO2 (22-28) mmol.L ABG O2 Saturation (95-98) % ABG O2 Content (15-23) ML/dl ABG Base Excess (-2.0-3.0) mmol/L ABG Hemoglobin (11.7-17.4) g/dL ABG Carboxyhemoglobin (0.5-1.5) % POC ABG HHb (Measured) (0-5) % ABG Methemoglobin (0.0-3.0) % ABG O2 Capacity (16-24) mL/dl Hgb O2 Saturation (95.0-98.0) % FiO2 % Sodium (132-148) mmol/L Potassium (3.6-5.0) mmol/L Chloride (98-107) mmol/L Carbon Dioxide (21-33) mmol/L Anion Gap (10-20) BUN (7-21) mg/dL Creatinine (0.8-1.5) mg/dl Est GFR ( Amer) Est GFR (Non-Af Amer) POC Glucose (mg/dL) 215 H 217 H 216 H (65-110) mg/dL Random Glucose (70-110) mg/dL Calcium (8.4-10.5) mg/dL Total Bilirubin (0.2-1.3) mg/dL AST (17-59) U/L ALT (7-56) U/L Alkaline Phosphatase (38-126) U/L Total Protein (5.8-8.3) g/dL Albumin (3.0-4.8) g/dL Globulin gm/dL Albumin/Globulin Ratio (1.1-1.8) Procalcitonin (0.19-0.49) NG/ML 05/09/18 05/09/18 05/08/18 Range/Units 08:10 08:08 16:29 WBC (4.5-11.0) 10^3/uL RBC (3.5-6.1) 10^6/uL Hgb (14.0-18.0) g/dL Hct (42.0-52.0) % MCV (80.0-105.0) fl MCH (25.0-35.0) pg MCHC (31.0-37.0) g/dl RDW (11.5-14.5) % Plt Count (120.0-450.0) 10^3/uL MPV (7.0-11.0) fl Gran % (50.0-68.0) % Lymph % (Auto) (22.0-35.0) % Stark % (Auto) (1.0-6.0) % Eos % (Auto) (1.5-5.0) % Baso % (Auto) (0.0-3.0) % Gran # (1.4-6.5) Lymph # (Auto) (1.2-3.4) Stark # (Auto) (0.1-0.6) Eos # (Auto) (0.0-0.7) Baso # (Auto) (0.0-2.0) K/mm3 pCO2 (35-45) mm/Hg pO2 (80-100) mm/Hg HCO3 (21-28) mmol/L ABG pH (7.35-7.45) ABG Total CO2 (22-28) mmol.L ABG O2 Saturation (95-98) % ABG O2 Content (15-23) ML/dl ABG Base Excess (-2.0-3.0) mmol/L ABG Hemoglobin (11.7-17.4) g/dL ABG Carboxyhemoglobin (0.5-1.5) % POC ABG HHb (Measured) (0-5) % ABG Methemoglobin (0.0-3.0) % ABG O2 Capacity (16-24) mL/dl Hgb O2 Saturation (95.0-98.0) % FiO2 % Sodium (132-148) mmol/L Potassium (3.6-5.0) mmol/L Chloride (98-107) mmol/L Carbon Dioxide (21-33) mmol/L Anion Gap (10-20) BUN (7-21) mg/dL Creatinine (0.8-1.5) mg/dl Est GFR ( Amer) Est GFR (Non-Af Amer) POC Glucose (mg/dL) 273 H 157 H (65-110) mg/dL Random Glucose (70-110) mg/dL Calcium (8.4-10.5) mg/dL Total Bilirubin (0.2-1.3) mg/dL AST (17-59) U/L ALT (7-56) U/L Alkaline Phosphatase (38-126) U/L Total Protein (5.8-8.3) g/dL Albumin (3.0-4.8) g/dL Globulin gm/dL Albumin/Globulin Ratio (1.1-1.8) Procalcitonin 0.62 H (0.19-0.49) NG/ML Laboratory Results - last 24 hr 05/08/18 05/09/18 05/09/18 16:29 08:08 08:10 WBC RBC Hgb Hct MCV MCH MCHC RDW Plt Count MPV Gran % Lymph % (Auto) Stark % (Auto) Eos % (Auto) Baso % (Auto) Gran # Lymph # (Auto) Stark # (Auto) Eos # (Auto) Baso # (Auto) pCO2 pO2 HCO3 ABG pH ABG Total CO2 ABG O2 Saturation ABG O2 Content ABG Base Excess ABG Hemoglobin ABG Carboxyhemoglobin POC ABG HHb (Measured) ABG Methemoglobin ABG O2 Capacity Hgb O2 Saturation FiO2 Sodium Potassium Chloride Carbon Dioxide Anion Gap BUN Creatinine Est GFR ( Amer) Est GFR (Non-Af Amer) POC Glucose (mg/dL) 157 H 273 H Random Glucose Calcium Total Bilirubin AST ALT Alkaline Phosphatase Total Protein Albumin Globulin Albumin/Globulin Ratio Procalcitonin 0.62 H 05/09/18 05/09/18 05/09/18 11:51 15:32 21:25 WBC RBC Hgb Hct MCV MCH MCHC RDW Plt Count MPV Gran % Lymph % (Auto) Stark % (Auto) Eos % (Auto) Baso % (Auto) Gran # Lymph # (Auto) Stark # (Auto) Eos # (Auto) Baso # (Auto) pCO2 pO2 HCO3 ABG pH ABG Total CO2 ABG O2 Saturation ABG O2 Content ABG Base Excess ABG Hemoglobin ABG Carboxyhemoglobin POC ABG HHb (Measured) ABG Methemoglobin ABG O2 Capacity Hgb O2 Saturation FiO2 Sodium Potassium Chloride Carbon Dioxide Anion Gap BUN Creatinine Est GFR ( Amer) Est GFR (Non-Af Amer) POC Glucose (mg/dL) 216 H 217 H 215 H Random Glucose Calcium Total Bilirubin AST ALT Alkaline Phosphatase Total Protein Albumin Globulin Albumin/Globulin Ratio Procalcitonin 05/10/18 05/10/18 05/10/18 05:00 05:35 07:18 WBC 13.3 H D RBC 2.55 L Hgb 7.3 L D Hct 23.9 L MCV 93.7 MCH 28.6 MCHC 30.5 L RDW 18.1 H Plt Count 70 L MPV 11.1 H Gran % 90.3 H Lymph % (Auto) 6.4 L Stark % (Auto) 3.1 Eos % (Auto) 0.1 L Baso % (Auto) 0.1 Gran # 11.99 H Lymph # (Auto) 0.9 L Stark # (Auto) 0.4 Eos # (Auto) 0.0 Baso # (Auto) 0.01 pCO2 46 H pO2 61.0 L HCO3 33.5 H ABG pH 7.47 H ABG Total CO2 34.9 H ABG O2 Saturation 95.8 ABG O2 Content 12.5 L ABG Base Excess 8.8 H ABG Hemoglobin 9.6 L ABG Carboxyhemoglobin 2.7 H POC ABG HHb (Measured) 4.0 ABG Methemoglobin 1.0 ABG O2 Capacity 13.0 L Hgb O2 Saturation 92.3 L FiO2 60.0 Sodium 143 Potassium 3.8 Chloride 105 Carbon Dioxide 34 H Anion Gap 8 L BUN 41 H Creatinine 0.8 Est GFR ( Amer) > 60 Est GFR (Non-Af Amer) > 60 POC Glucose (mg/dL) Random Glucose 235 H Calcium 7.6 L Total Bilirubin 0.5 AST 65 H D ALT 72 H Alkaline Phosphatase 148 H Total Protein 6.2 Albumin 2.7 L Globulin 3.6 Albumin/Globulin Ratio 0.8 L Procalcitonin Radiology Impressions: Radiology Impressions Chest X-Ray 05/10/18 07:00 IMPRESSION: Slight improvement in bilateral infiltrates EKG/Cardiology Studies: Cardiology / EKG Studies 05/10/18 06:32 EKG [ELECTROCARDIOGRAM] Stat Comment: Reason For Exam: hr 159 Critical Care Progress Note - Nutrition Nutrition: Nutrition Category Date Time Status NPO Diet [DIET] Diets 05/06/18 Breakfast Ordered Attending/Attestation - Attestation I have personally seen and examined this patient.: Yes I have fully participated in the care of the patient.: Yes I have reviewed all pertinent clinical information: Yes Notes (Text): 05/10/18 14:42 77 yo with septic shock due to severe CAP, in the setting of stage IV small lung CA, complicated by hypoxemic respiratory failure, aflutter with RVR, septic encephalopathy. Plan: Neuro: will get EEG done to rule out non-convulsive sezirues. will follow up on CT. only on precedex and intermittent morphine for pain control. still not waking up. MRI brain 04/27/2018-->no metastatic disease Pulmonary: conservative fluid and 02 management, protective lung vent strategy (vt 4-8 cc/pbw+Ppl<30 cmH20), daily weaning trials and sedation vacations, HOB>35, oral hygiene. todays CXR appears to improve in b/l infiltrate. on steroids for treating potential pneumonitis due to PDL-1 inhibitor. DVT/GI prophylaxis Cardio: in and out of aflutter. completed amiodarone drip, on precedex, bb-ers, ccb-ers, dig. requires NE 2 mcg/min for hemodynamic support of distributive shock. echo: LV and RV w/o significant abnormalities, RVSP is elevated, but that is on PEEP 12. no LA or RA dilatation noted. On lovenox for TAC/aflutter ID: on merem/vanco/mycafungin. ID service is following him. will get sputum for micro GI: tolerates enteral nutrition well Onc: stage IV small cell CA-->spoke with family and Dr. Bullard about prognosis, see Dr. Bullard note renal: creatinine wnl, will maintain MAP>65, avoid hyperchloremia and maintain euvolemia and euglycemia endo: BG 140-180 range according to [employer] trial ccm time 40 min
[2018-05-10] MEDS: Enoxaparin 60 mg Syringe SC SCH ×2 (09:45→23:07)
[2018-05-10] MEDS: MethylPREDNISolone 40 mg Vial IVP SCH ×2 (09:46→22:09)
--- NOTE | 2018-05-10 10:45 | PN ---
DATE: 05/10/2018 ONCOLOGY PROGRESS NOTE LOCATION: The patient is in bed 5 in the unit. SUBJECTIVE: This is a 76-year-old male with extensive small cell lung carcinoma, currently on systemic chemotherapy, completed six cycles of carboplatin and etoposide and then maintained on Tecentriq and iridium which is the bisphosphonate for metastatic disease in the bone. Was admitted post treatment for deconditioning and failure to thrive. While in the hospital, became progressively short of breath. Over the weekend has to be intubated and then admitted and transferred to the unit. Working diagnosis in the unit is progressive bilateral infiltrate, progressively worsening gradient, hypotension. Denied ischemia with elevated troponins. All combination of demand on the heart by worsening lung infiltrates. The question was whether this was progression of disease from metastatic cancer versus aspiration pneumonia versus hospital-acquired pneumonic process in an immunocompromised patient. Subjectively, the patient is still intubated. Today this morning, endotracheal position tube was repositioned this morning. The patient is tachycardic and hypotensive and has been started on multiple medications to maintain his blood pressure including norepinephrine. The patient is also on amiodarone for his tachycardia. PHYSICAL EXAMINATION: GENERAL: The patient is intubated and sedated. VITAL SIGNS: Stable. T-max is 100.6, pulse is 104, blood pressure is 120/82, O2 sat is 100%. HEENT: Nasogastric tube is in place. There is no blood in the NG tube or the ET tube. NECK: Supple. No JVD is noted. LUNGS: Respiration, the patient has fair inflow with scattered wheezes bilaterally. CARDIOVASCULAR SYSTEM: Tachycardia which is irregular. ABDOMEN: Nondistended. No organomegaly is noted. EXTREMITIES: Bilateral lower extremity edema. The patient is intubated and sedated, on multiple medications. MEDICATIONS: The patient's medications are reviewed. He is on Tylenol 650 every 6 hours p.r.n., Mucomyst 4 mL inhaled twice a day, amiodarone and dextrose 360 mg and 200 mL every 12 hours. He is on Eliquis 5 b.i.d., aspirin 300 mg rectal daily, Tessalon Perles 100 mg three times a day, Pulmicort 0.5 mg inhaled every 12 hours. The patient is on Precedex 400 mcg every 24 hours p.r.n. for sedation. He is on digoxin 0.25 mg IV push once a day, Cardizem 120 mg daily. The patient is also on Lovenox 60 mg every 12 hours, Lasix 40 b.i.d., Robitussin DM 5 mL every four hours, Humalog sliding scale at bedtime, Xopenex 0.63 mg inhaled every 6 hours. The patient is on meropenem 1 g IV every 8 hours. He is on Solu-Medrol 40 mg IV every 12 hours, morphine sulfate 2 mg IV every 4 hours p.r.n. for sedation and restlessness, nitroglycerine topically every 6 hours, Levophed p.r.n. The patient is on Tamiflu 75 mg b.i.d., Protonix 40 mg daily, propofol mg p.r.n., sodium chloride 0.9% 100 mL an hour. The patient is on sotalol 40 mg twice a day, tramadol 50 mg every 8 hours p.r.n., vancomycin 1 g IV every 12 hours, verapamil 2.5 mg every 6 hours p.r.n. for heart rate greater than 130. LABORATORY DATA: Reveals a white count of 19.5, hemoglobin 9.8, hematocrit 31, platelet count of 105,000. Blood gases show pCO2 of 55, pO2 of 68, bicarbonate of 29.7, FiO2 of 60%. Sodium is 139, K is 3.7, chloride is 104, BUN is 39, creatinine 0.8, GFR is greater than 60. LFTs are within reasonable range. AST is 95, ALT is 66, alkaline phosphatase is 125. Total protein reveals to be 6.2 with an albumin of 2.6. Blood cultures are negative for three days. Chest x-ray shows no change in bilateral infiltrates and vascular congestion. NGT and ET are in proper place. EKG shows atrial flutter with variable AV block. ASSESSMENT, NOTES, AND PLAN: The patient has extensive small cell lung carcinoma, currently on Tecentriq which is recorded in 47% of the patients to be associated with pneumonitis as a complication of the treatment. So, one of the concerns I would have is that are these infiltrates related to that and usually with time it should improve, especially with steroids as this is a hyper-immune response from the Tecentriq which is a PD-L1 inhibitor. Other differential diagnosis would be opportunistic infections in this immunocompromised host. His most recent PET CT scan done less than three weeks ago had shown a dramatic improvement in his disease. So, progression of disease appears to be less likely which is also included in the differential diagnosis. Case was discussed with Dr. Yi, joint maker machine on the case. We discussed with the black ash worker, Dr. Gtz on the case. I spoke to the family over the phone including both the sons. For now, we will continue to maintain oxygen saturation and continue the steroid. If the patient's condition does not improve over the next 24 to 48 hours, we will plan on supportive care alone. I want to give the patient the opportunity to see if there is going to be some improvement before making any further decisions about stopping aggressive measures. We will talk to the family on a daily basis and make appropriate decisions. For now, upon discussion with the joint maker machine, we feel it is prudent to continue aggressive supportive care. Time spent with the patient in correlating all the information, talking to the various family members was more than 90 minutes. Anu Bullard MD
--- NOTE | 2018-05-10 11:30 | PN ---
DATE: 05/10/2018 REASON FOR CONSULTATION AND FOLLOWUP: Status post respiratory failure, elevated troponin with non-ST segment myocardial infarction, history of lung CA with metastasis, AFib with rapid ventricular rate, non-ST segment myocardial infarction. SUBJECTIVE: Patient remained on vent, heart rate 150, AFib with rapid ventricular AFib flutter, heart rate 150. Sedated on vent. OBJECTIVE GENERAL: Not in apparent distress though patient was tachycardiac and agonal breathing. VITAL SIGNS: Heart rate 150, blood pressure 146/89. HEENT: PERRLA. Extraocular muscles intact. NECK: Supple. No carotid bruits. No thyromegaly. CHEST: Clear to auscultation. ABDOMEN: Soft. EXTREMITIES: Clubbing, cyanosis negative. IV's, patient is currently in IV Levophed, Versed as well as propofol, also getting IV amiodarone, heart is not well controlled. IMPRESSION: A 77-year-old male with a past medical history significant for chronic obstructive pulmonary disease, history of paroxysmal atrial fibrillation, diagnosed lung for with metastasis who was admitted to the floor, failure to thrive, went into respiratory distress, intubated, now on vent dependent, atrial fibrillation with rapid ventricular sedated. RECOMMENDATION: We will give one dose of dig. We will give 2.5 of verapamil to slow the heart rate and discontinue sotalol, change to verapamil 40 TID p.o. Close monitor. Overall, patient's condition is critical. Long-term prognosis is extremely guarded. We will follow with you. Thank you Dr. Bullard for providing us the opportunity in taking care of the patient, Salvador Alvarenga. Aura Orozco MD [facility]
--- NOTE | 2018-05-10 12:45 | CP.PCM.PN ---
<Anthony Chong - Last Filed: 05/10/18 12:45> Subjective - Date & Time of Evaluation Date of Evaluation: 05/10/18 Time of Evaluation: 12:32 - Subjective Subjective: PGY-2 heme/onc progress note for Dr Bullard No acute events noted overnight. Patient intubated on vent at 60% fio2. ROS were not obtainable. Objective - Vital Signs/Intake and Output Vital Signs (last 24 hours): Temp Pulse Resp BP Pulse Ox 97.5 F L 76 35 H 99/58 L 96 05/10/18 12:04 05/10/18 12:04 05/10/18 07:40 05/10/18 12:04 05/10/18 12:04 Intake and Output: 05/10/18 05/10/18 06:59 18:59 Intake Total 1528.8 250 Output Total 1700 Balance -171.2 250 - Medications Medications: Current Medications Acetaminophen (Tylenol 325mg Tab) 650 mg PO Q6H PRN PRN Reason: Pain, Mild (1-3) Last Admin: 05/09/18 21:38 Dose: 650 mg Apixaban (Eliquis) 5 mg PO BID [facility]; Protocol Last Admin: 05/06/18 18:44 Dose: 5 mg Aspirin (Aspirin Supp) 300 mg RC DAILY [facility] Last Admin: 05/10/18 09:44 Dose: 300 mg Benzonatate (Tessalon Perles) 100 mg PO TID PRN PRN Reason: Cough Last Admin: 05/05/18 04:09 Dose: 100 mg Budesonide (Pulmicort Respules) 0.5 mg IH [id number] [facility] Last Admin: 05/10/18 07:32 Dose: 0.5 mg Dextrose (Dextrose 50% Inj) 0 ml IV STAT PRN; Protocol PRN Reason: Hypoglycemia Protocol Digoxin (Lanoxin) 0.25 mg IVP ONCE ONE Stop: 05/10/18 15:01 Diltiazem HCl (Cardizem Cd) 120 mg PO DAILY [facility] Last Admin: 05/07/18 11:16 Dose: Not Given Enoxaparin Sodium (Lovenox) 60 mg SC Q12H [facility]; Protocol Last Admin: 05/10/18 09:45 Dose: 60 mg Furosemide (Lasix) 40 mg IV BID [facility] Last Admin: 05/10/18 09:43 Dose: 40 mg Guaifenesin/Dextromethorphan (Robitussin Dm) 5 ml PO Q4H PRN PRN Reason: Cough Last Admin: 05/05/18 04:09 Dose: 5 ml Meropenem (Merrem Iv 1 Gm Premix) 1 gm in 50 mls @ 100 mls/hr IVPB Q8 [facility]; Protocol Last Admin: 05/10/18 05:21 Dose: 100 mls/hr Vancomycin HCl (Vancomycin 1gm) 1 gm in 250 mls @ 167 mls/hr IVPB Q12H [facility]; Protocol Last Admin: 05/10/18 03:00 Dose: 167 mls/hr Propofol (Diprivan) 1,000 mg in 100 mls @ 2.15 mls/hr IV .Q24H PRN; Protocol PRN Reason: TITRATE PER MD ORDER Last Titration: 05/09/18 08:19 Dose: 10 mcg/kg/min, 4.3 mls/hr Sodium Chloride (Sodium Chloride 0.9%) 1,000 mls @ 100 mls/hr IV .Q10H [facility] Last Admin: 05/06/18 20:30 Dose: 100 mls/hr NOREPINEPHRINE BIT/0.9 % NACL (Levophed 4 Mg/ 250 Ml Ns Premixed) 4 mg in 250 mls @ 15 mls/hr IV .[id number] PRN; Protocol PRN Reason: TITRATE PER MD ORDER Last Admin: 05/10/18 08:24 Dose: 2 mcg/min, 7.5 mls/hr Amiodarone HCl/Dextrose (Nexterone 360 Mg In D5w 200 Ml (Premix)) 360 mg in 200 mls @ 16.667 mls/hr IV .Q12H [facility]; Protocol Last Admin: 05/10/18 01:29 Dose: Not Given Dexmedetomidine HCl (Precedex 400mcg/100ml) 400 mcg in 100 mls @ 3.357 mls/hr IV .Q24H PRN; Protocol PRN Reason: Sedation Last Titration: 05/10/18 06:28 Dose: 0.7 mcg/kg/hr, 11.748 mls/hr Dextrose (Dextrose 5% In Water 1000 Ml) 1,000 mls @ 0 mls/hr IV .Q0M PRN; Protocol PRN Reason: Hypoglycemia Protocol Insulin Human Lispro (Humalog High) 0 units SC ACHS [facility]; Protocol Last Admin: 05/10/18 11:52 Dose: 4 u Levalbuterol HCl (Xopenex) 0.63 mg IH [id number] PRN PRN Reason: Shortness of Breath Last Admin: 05/08/18 03:00 Dose: 0.63 mg Levalbuterol HCl (Xopenex) 0.63 mg IH TIDRESP [facility] Last Admin: 05/10/18 07:32 Dose: 0.63 mg Methylprednisolone (Solu-Medrol) 40 mg IVP Q12 [facility] Last Admin: 05/10/18 09:46 Dose: 40 mg Morphine Sulfate (Morphine) 2 mg IVP Q4H PRN PRN Reason: Pain, severe (8-10) Last Admin: 05/10/18 05:21 Dose: 2 mg Nitroglycerin (Nitro-Bid 2% Oint) 0.5 ea TOP Q6H [facility] Last Admin: 05/10/18 05:22 Dose: Not Given Pantoprazole Sodium (Protonix Ec Tab) 40 mg PO 0600 [facility] Last Admin: 05/08/18 05:00 Dose: 40 mg Pantoprazole Sodium (Protonix Inj) 40 mg IVP DAILY [facility] Last Admin: 05/10/18 09:46 Dose: 40 mg Sotalol HCl (Betapace) 40 mg PO BID [facility] Last Admin: 05/10/18 09:44 Dose: 40 mg Tramadol HCl (Ultram) 50 mg PO Q8H PRN PRN Reason: Pain, moderate (4-7) Last Admin: 05/05/18 04:09 Dose: 50 mg Verapamil HCl (Calan Tab) 40 mg PO TID [facility] Verapamil HCl (Verapamil Inj) 2.5 mg IVP Q6 PRN PRN Reason: FOR HR GREATER THAN 130 - Labs Labs: 05/10/18 05:35 05/10/18 07:18 PT 25.7 SECONDS (9.4-12.5) H 05/07/18 06:30 INR 2.20 05/07/18 06:30 APTT 25.5 Seconds (25.1-36.5) 05/07/18 06:30 - Additional Findings Additional findings: - Constitutional Appears: Cachectic, Chronically Ill - Head Exam Head Exam: ATRAUMATIC, NORMAL INSPECTION - Eye Exam Eye Exam: EOMI, Normal appearance, PERRL. absent: Scleral icterus - ENT Exam ENT Exam: Mucous Membranes Moist - Neck Exam Neck Exam: Full ROM - Respiratory Exam Respiratory Exam: Decreased Breath Sounds, NORMAL BREATHING PATTERN. absent: Clear to Ausculation Bilateral - Cardiovascular Exam Cardiovascular Exam: Tachycardia, REGULAR RHYTHM, +S1, +S2. absent: Murmur - GI/Abdominal Exam GI & Abdominal Exam: Soft, Normal Bowel Sounds. absent: Distended, Tenderness - Extremities Exam Extremities Exam: Normal Capillary Refill, Normal Inspection - Neurological Exam Neurological Exam: Alert, Oriented x3 - Psychiatric Exam Psychiatric exam: Anxious - Skin Skin Exam: Normal Color, Warm - Additional Findings Additional findings: - Constitutional Appears: Cachectic, Chronically Ill - Head Exam Head Exam: NORMOCEPHALIC - Eye Exam Eye Exam: PERRL - ENT Exam ENT Exam: Mucous Membranes Moist - Respiratory Exam Respiratory Exam: Decreased Breath Sounds - Cardiovascular Exam Cardiovascular Exam: Tachycardia, +S1, +S2 - GI/Abdominal Exam GI & Abdominal Exam: Normal Bowel Sounds, Soft - Skin Skin Exam: Dry, Pallor Assessment and Plan - Assessment and Plan (Free Text) Plan: 77 year old male with past medical history of 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 Patient was diagnosed with sepsis 2/2 to HCAP. On 05/05, patient became hypoxia and was in respiratory distress. Patient was intubated and sedated with propofol and versed. #History of small cell lung cancer stage 4 on radiation and chemotherapy -progression of disease from metastatic cancer vs aspiration pneumonia vs hospital-acquired pneumonic process in immuocompromised patient currently on systemic chemotherapy, completed six cycles of carboplatin and etoposide and then maintained on Tecentriq and also iridium, which is the bisphosphonate for metastatic disease in the bone -currently on Tecentriq * Tecentriq - 47% association with pneumonitis as complication of treatment * should improve on steroids - on methyprednisolone 40mg ivp q12h -most recent PET CT scan ~3 weeks ago showed dramatic improvement in his disease -currently intubated and sedated - continue to maintain oxygen saturation and continue steroids - if condition does not improve in next 24 hours we will plan on supportive care alone #SIRS, consider sepsis due to multifocal HCAP -CT of chest showed multifocal pneumonia. Patient completed 7 days of merrem and doxycycline on the floors. Now on vancomycin 1g q12h and merrem 1g q8h which has been stopped. He is currently not on any abx. ID Dr Urrutia has been consulted. -blood cx and flu negative #History of atrial fibrillation #NSTEMI -He released troponins, he also has AFib with RVR - he is on lovenox 60mg ivp q12h - his home eliquis 5mg bid is on hold, he is also receiving aspirin 300mg rectally, he is on sotalol 40mg po bid, his cardizem is currently being held. He is currently on amio drip. He is currently on verapmail 40mg po tid and verapil 2.5mg ivp q6h prn. He is on lasix 40mg iv bid. Cardio Dr Orozco is consulted. #COPD -Per pulm recommendation - continue pulmicort 0.5mg ih q12h and xopenex 0.63mg ih q6h prn and scheduled. Seen and discussed with Dr Bullard <Anu Bullard P - Last Filed: 05/18/18 22:18> Objective - Vital Signs/Intake and Output Vital Signs (last 24 hours): Temp Pulse Resp BP Pulse Ox 97.5 F L 65 21 95/45 L 100 05/18/18 14:00 05/18/18 18:00 05/16/18 07:03 05/18/18 13:59 05/18/18 14:00 Intake and Output: 05/18/18 05/19/18 18:59 06:59 Intake Total 2824 Balance 2824 - Medications Medications: Current Medications Acetaminophen (Tylenol 650 Mg Supp) 650 mg RC Q6H PRN PRN Reason: Fever >100.4 F Last Admin: 05/10/18 20:55 Dose: 650 mg Acetaminophen (Tylenol 650mg/20.3ml Solution Ud) 650 mg NG Q6H PRN PRN Reason: FEVER > 100.4 Last Admin: 05/14/18 09:29 Dose: 650 mg Aspirin (Aspirin Chewable) 81 mg PO DAILY [facility] Last Admin: 05/18/18 10:38 Dose: 81 mg Budesonide (Pulmicort Respules) 0.5 mg IH [id number] [facility] Last Admin: 05/18/18 19:43 Dose: 0.5 mg Dextrose (Dextrose 50% Inj) 0 ml IV STAT PRN; Protocol PRN Reason: Hypoglycemia Protocol Dextrose (Dextrose 50% Inj) 0 ml IV STAT PRN; Protocol PRN Reason: Hypoglycemia Protocol Diltiazem HCl (Cardizem Cd) 120 mg PO DAILY [facility] Last Admin: 05/07/18 11:16 Dose: Not Given Hydromorphone HCl (Dilaudid) 0.5 mg IVP Q4H PRN PRN Reason: Pain, severe (8-10) Last Admin: 05/18/18 06:32 Dose: 0.5 mg Meropenem (Merrem Iv 1 Gm Premix) 1 gm in 50 mls @ 100 mls/hr IVPB Q8 [facility]; Protocol Last Admin: 05/18/18 14:38 Dose: 100 mls/hr Dexmedetomidine HCl (Precedex 400mcg/100ml) 400 mcg in 100 mls @ 3.357 mls/hr IV .Q24H PRN; Protocol PRN Reason: Sedation Last Titration: 05/17/18 22:54 Dose: 0 mcg/kg/hr, 0 mls/hr Dextrose (Dextrose 5% In Water 1000 Ml) 1,000 mls @ 0 mls/hr IV .Q0M PRN; Protocol PRN Reason: Hypoglycemia Protocol Fentanyl Citrate (Fentanyl Citrate/Sodium Chloride 1 Mg/100 Ml) 1,000 mcg in 100 mls @ 2 mls/hr IV .Q24H PRN; Protocol PRN Reason: TITRATE PER MD ORDER Last Admin: 05/18/18 11:26 Dose: 70 mcg/hr, 7 mls/hr Dextrose (Dextrose 5% In Water 1000 Ml) 1,000 mls @ 0 mls/hr IV .Q0M PRN; Protocol PRN Reason: Hypoglycemia Protocol Insulin Human Lispro (Humalog High) 0 units SC Q6 [facility]; Protocol Last Admin: 05/18/18 16:45 Dose: 7 unit Levalbuterol HCl (Xopenex) 0.63 mg IH [id number] PRN PRN Reason: Shortness of Breath Last Admin: 05/15/18 02:05 Dose: 0.63 mg Levalbuterol HCl (Xopenex) 0.63 mg IH TIDRESP [facility] Last Admin: 05/18/18 19:43 Dose: 0.63 mg Methylprednisolone (Solu-Medrol) 20 mg IVP Q12 [facility] Pantoprazole Sodium (Protonix Inj) 40 mg IVP DAILY [facility] Last Admin: 05/18/18 10:38 Dose: 40 mg Propranolol HCl (Inderal) 20 mg PO Q6H [facility] Last Admin: 05/18/18 16:44 Dose: 20 mg Sotalol HCl (Betapace) 40 mg PO BID [facility] Last Admin: 05/11/18 09:16 Dose: Not Given Verapamil HCl (Calan Tab) 40 mg PO TID [facility] Last Admin: 05/11/18 09:16 Dose: Not Given Verapamil HCl (Verapamil Inj) 2.5 mg IVP Q6 PRN PRN Reason: FOR HR GREATER THAN 130 Last Admin: 05/17/18 13:34 Dose: 2.5 mg - Labs Labs: 05/18/18 05:40 05/18/18 05:40 PT 14.0 SECONDS (9.4-12.5) H 05/15/18 20:43 INR 1.26 05/15/18 20:43 APTT 30.5 Seconds (26.9-38.3) 05/15/18 20:43 Attending/Attestation - Attestation I have personally seen and examined this patient.: Yes I have fully participated in the care of the patient.: Yes I have reviewed all pertinent clinical information, including history, physical exam and plan: Yes
--- NOTE | 2018-05-10 12:57 | CARD ---
APPROVED REPORT Date of service: 05/10/2018 EKG Measurement Heart [id number] AR 122P [id number] <Conclusion> Atrial flutter with 2:[address] abnormality Abnormal ECG
--- NOTE | 2018-05-10 13:01 | CP.PCM.PN ---
Subjective - Date & Time of Evaluation Date of Evaluation: 05/10/18 Time of Evaluation: 11:10 - Subjective Subjective: Still on the ventilator, still having fevers overnight, tachycardic and in some respiratory distress. Objective - Vital Signs/Intake and Output Vital Signs (last 24 hours): Temp Pulse Resp BP Pulse Ox 101.1 F H 104 H 21 120/82 92 L 05/09/18 07:15 05/09/18 09:34 05/08/18 07:55 05/09/18 09:34 05/08/18 07:55 Intake and Output: 05/09/18 05/09/18 06:59 18:59 Intake Total 2725 83.8 Output Total 1500 Balance 1225 83.8 - Medications Medications: Current Medications Acetaminophen (Tylenol 325mg Tab) 650 mg PO Q6H PRN PRN Reason: Pain, Mild (1-3) Acetylcysteine (Acetylcysteine 20%) 4 ml IH BIDRESP [facility] Last Admin: 05/09/18 07:36 Dose: 4 ml Apixaban (Eliquis) 5 mg PO BID [facility]; Protocol Last Admin: 05/06/18 18:44 Dose: 5 mg Aspirin (Aspirin Supp) 300 mg RC DAILY [facility] Last Admin: 05/09/18 09:29 Dose: 300 mg Benzonatate (Tessalon Perles) 100 mg PO TID PRN PRN Reason: Cough Last Admin: 05/05/18 04:09 Dose: 100 mg Budesonide (Pulmicort Respules) 0.5 mg IH [id number] [facility] Last Admin: 05/09/18 07:36 Dose: 0.5 mg Daptomycin (Cubicin) 400 mg 6 mg/kg (400 mg) IV ONCE ONE; Protocol Stop: 05/09/18 12:16 Dextrose (Dextrose 50% Inj) 0 ml IV STAT PRN; Protocol PRN Reason: Hypoglycemia Protocol Digoxin (Lanoxin) 0.25 mg IVP ONCE ONE Stop: 05/09/18 15:01 Diltiazem HCl (Cardizem Cd) 120 mg PO DAILY [facility] Last Admin: 05/07/18 11:16 Dose: Not Given Enoxaparin Sodium (Lovenox) 60 mg SC Q12H [facility]; Protocol Last Admin: 05/09/18 09:28 Dose: 60 mg Furosemide (Lasix) 40 mg IV BID [facility] Last Admin: 05/09/18 09:28 Dose: 40 mg Guaifenesin/Dextromethorphan (Robitussin Dm) 5 ml PO Q4H PRN PRN Reason: Cough Last Admin: 05/05/18 04:09 Dose: 5 ml Meropenem (Merrem Iv 1 Gm Premix) 1 gm in 50 mls @ 100 mls/hr IVPB Q8 [facility]; Protocol Last Admin: 05/09/18 06:19 Dose: 100 mls/hr Vancomycin HCl (Vancomycin 1gm) 1 gm in 250 mls @ 167 mls/hr IVPB Q12H [facility]; Protocol Last Admin: 05/09/18 03:00 Dose: 167 mls/hr Propofol (Diprivan) 1,000 mg in 100 mls @ 2.15 mls/hr IV .Q24H PRN; Protocol PRN Reason: TITRATE PER MD ORDER Last Titration: 05/09/18 08:19 Dose: 10 mcg/kg/min, 4.3 mls/hr Sodium Chloride (Sodium Chloride 0.9%) 1,000 mls @ 100 mls/hr IV .Q10H [facility] Last Admin: 05/06/18 20:30 Dose: 100 mls/hr NOREPINEPHRINE BIT/0.9 % NACL (Levophed 4 Mg/ 250 Ml Ns Premixed) 4 mg in 250 mls @ 15 mls/hr IV .[id number] PRN; Protocol PRN Reason: TITRATE PER MD ORDER Last Titration: 05/09/18 10:41 Dose: 0 mcg/min, 0 mls/hr Amiodarone HCl/Dextrose (Nexterone 360 Mg In D5w 200 Ml (Premix)) 360 mg in 200 mls @ 16.667 mls/hr IV .Q12H [facility]; Protocol Last Admin: 05/09/18 00:14 Dose: 16.667 mls/hr Dexmedetomidine HCl (Precedex 400mcg/100ml) 400 mcg in 100 mls @ 3.357 mls/hr IV .Q24H PRN; Protocol PRN Reason: Sedation Last Titration: 05/09/18 11:21 Dose: 0.4 mcg/kg/hr, 6.713 mls/hr Dextrose (Dextrose 5% In Water 1000 Ml) 1,000 mls @ 0 mls/hr IV .Q0M PRN; Protocol PRN Reason: Hypoglycemia Protocol Insulin Human Lispro (Humalog High) 0 units SC ACHS [facility]; Protocol Levalbuterol HCl (Xopenex) 0.63 mg IH [id number] PRN PRN Reason: Shortness of Breath Last Admin: 05/08/18 03:00 Dose: 0.63 mg Levalbuterol HCl (Xopenex) 0.63 mg IH TIDRESP [facility] Last Admin: 05/09/18 07:36 Dose: 0.63 mg Methylprednisolone (Solu-Medrol) 40 mg IVP Q12 [facility] Last Admin: 05/09/18 09:34 Dose: 40 mg Morphine Sulfate (Morphine) 2 mg IVP Q4H PRN PRN Reason: Pain, severe (8-10) Last Admin: 05/09/18 09:27 Dose: 2 mg Nitroglycerin (Nitro-Bid 2% Oint) 0.5 ea TOP Q6H [facility] Last Admin: 05/09/18 09:30 Dose: 0.5 ea Oseltamivir Phosphate (Tamiflu Susp) 75 mg PO BID [facility]; Protocol Last Admin: 05/09/18 11:17 Dose: 1 dose Pantoprazole Sodium (Protonix Ec Tab) 40 mg PO 0600 [facility] Last Admin: 05/08/18 05:00 Dose: 40 mg Pantoprazole Sodium (Protonix Inj) 40 mg IVP DAILY [facility] Last Admin: 05/09/18 09:34 Dose: 40 mg Sotalol HCl (Betapace) 40 mg PO BID [facility] Last Admin: 05/09/18 09:34 Dose: 40 mg Tramadol HCl (Ultram) 50 mg PO Q8H PRN PRN Reason: Pain, moderate (4-7) Last Admin: 05/05/18 04:09 Dose: 50 mg Verapamil HCl (Verapamil Inj) 2.5 mg IVP Q6H PRN PRN Reason: For heart rate >130 - Labs Labs: 05/09/18 05:15 05/09/18 05:15 PT 25.7 SECONDS (9.4-12.5) H 05/07/18 06:30 INR 2.20 05/07/18 06:30 APTT 25.5 Seconds (25.1-36.5) 05/07/18 06:30 - Constitutional Appears: In Acute Distress, Chronically Ill, Other (intubated, sedated, ) - ENT Exam Additional comments: ET tube in place - Respiratory Exam Respiratory Exam: Decreased Breath Sounds Additional comments: right anterior chest wall port in place - Cardiovascular Exam Cardiovascular Exam: Tachycardia, +S1, +S2 - GI/Abdominal Exam GI & Abdominal Exam: Soft. absent: Tenderness Assessment and Plan - Assessment and Plan (Free Text) Plan: Assessment new onset hypoxic respiratory failure, with VDRF, with SIRS, R/O severe sepsis from hospital-acquired pneumonia on top of worsening lung cancer; new onset fever R/O bacteremia related to port, R/O Influenza S/P sepsis due to multifocal HCAP in this patient with stage 4 lung cancer, S/P confusion consider toxic-metabolic encephalopathy small cell lung cancer stage 4 on radiation and chemotherapy COPD atrial fibrillation gastritis Plan continue Vancomycin and Merrem day 5, will add Mycamine and continue Tamiflu day 2;repeat blood cx are negative so far; gave a dose of Daptomycin overall prognosis is poor
--- NOTE | 2018-05-10 13:49 | PN ---
DATE: 05/10/2018 PULMONARY CRITICAL CARE PROGRESS NOTE REFERRING PHYSICIAN: Dr. Erasmo Briggs. SUBJECTIVE: The patient is in bed, sedated, intubated, continues to be febrile today and tachycardiac. Blood pressure currently being maintained with Levophed. OBJECTIVE: GENERAL: Intubated and sedated. VITAL SIGNS: Blood pressure 146/89, pulse 147, temperature 98.8, and oxygen saturation 92%. HEENT: Nasogastric tube in place. NECK: Supple. No JVD. RESPIRATORY: Fair airflow; scattered rhonchi. CARDIOVASCULAR: Tachycardiac and irregular. ABDOMEN: Soft. No distention. No organomegaly. EXTREMITIES: No bilateral lower extremity edema. NEUROLOGIC: Intubated and sedated. MEDICATIONS: Reviewed. Tylenol 650 mg every 6 hours p.r.n., Nexterone 360 mg every 12 hours, apixaban 5 mg twice a day, aspirin 300 mg rectally daily, Tessalon Perles 100 mg three times a day p.r.n., Pulmicort 0.5 mg inhalation every 12 hours, Precedex 400 mcg p.r.n., digoxin 0.25 mg IV push once today, Cardizem 120 mg daily, Lovenox 50 mg every 12 hours, Lasix 40 mg twice a day, Robitussin 5 mL every 4 hours p.r.n., Humalog sliding scale a.c. and at bedtime, Xopenex 0.63 mg inhalation every 6 hours p.r.n., Xopenex 0.63 mg inhalation three times a day, meropenem 1 g every 8 hours, Solu-Medrol 40 mg every 12 hours, morphine 2 mg every 4 hours p.r.n., nitroglycerine topically every 6 hours, Levophed p.r.n. 4 mg, Protonix 40 mg daily, propofol 1000 mg p.r.n., sodium chloride 0.9% 1000 mL at a 100 mL per hour, sotalol 40 mg twice a day, tramadol 50 mg every 8 hours p.r.n., vancomycin 1 g every 12 hours, verapamil 2.5 mg every 6 hours and 40 mg three times a day. LABORATORY DATA: Reviewed. WBC 13.3, RBC , hemoglobin 7.3, hematocrit 23.9, and platelets 70. PCO2 of 46, pO2 of 61, HCO3 of 33.5, ABG pH 7.47 and FIO2 of 60. Sodium 143, potassium 3.8, chloride 105, carbon dioxide 34, anion gap 8, BUN 41, creatinine 0.8, GFR greater than 60, POC glucose 215, random glucose 235, calcium 7.6, total bilirubin 0.5, AST 65, ALT 72, alkaline phosphatase 148, total protein 6.2, albumin 2.7, globulin 3.6 and albumin-globulin ratio 0.8. Procalcitonin level 0.62. Blood cultures preliminary, no growth after 24 hours. Chest x-ray shows slight improvement in bilateral infiltrates. EKG report pending. IMPRESSION AND PLAN: Unresectable small cell lung cancer, requiring radiation and chemotherapy in the past; chronic obstructive lung disease; paroxysmal atrial fibrillation; respiratory failure, on ventilator; cardiac infarction; healthcare-associated pneumonia, failure to thrive and sepsis. Procalcitonin presently improving. The patient still continues on Levophed. Continue present vent setting. Continue steroids as that just could be complication of the patient's cancer treatment. Dr. Yi discussed case with Dr. Bullard today. Maintain oxygen saturation 92% or greater. Continue inhaled bronchodilators and antibiotic therapy. We will repeat ABG, chest x-ray and labs in the morning. Critical care time spent more than 35 minutes. Case seen and examined with Dr. Yi. Discussed assessment and plan as described above. Thank you for this consult. We will follow with you. Juan Carlos Paul APN Aura Yi MD RODRICK
[2018-05-10] MEDS: Micafungin 100 MG in Sodium Chloride 0.9% 100 ML IV SCH (14:55)
[2018-05-11] MEDS: Nitroglycerin 2% Ointment Foilpak UD TOP SCH ×4 (04:20→21:48)
[2018-05-11] MEDS: Vancomycin 1gm in NS 250ml 1 GM/250 ML BAG IVPB SCH ×2 (04:30→14:48)
[2018-05-11] MEDS: Amiodarone 360 mg/D5W 200 ml 360 MG/200 ML BAG IV SCH (05:15)
[2018-05-11] MEDS: Meropenem IV 1 gm in NS 1 GM/50 ML BAG IVPB SCH ×3 (05:20→21:45)
[2018-05-11 05:59] LABS: ARTERIAL BLOOD GAS HCO3 39.5 mmol/L (21-28); ARTERIAL BLOOD GAS HEMOGLOBIN 10.1 g/dL (11.7-17.4); ARTERIAL BLOOD GAS O2 CAPACITY 13.7 mL/dl (16-24); ARTERIAL BLOOD GAS O2 CONTENT 12.6 ML/dl (15-23); ARTERIAL BLOOD GAS O2 SAT 91.7 % (95-98); ARTERIAL BLOOD GAS PCO2 53 mm/Hg (35-45); ARTERIAL BLOOD GAS PH 7.48 (7.35-7.45); ARTERIAL BLOOD GAS TCO2 41.1 mmol.L (22-28)
[2018-05-11 06:50] LABS: BASO # 0.01 K/mm3 (0.0-2.0); BASO % 0.1 % (0.0-3.0); GRAN # 15.09 (1.4-6.5); GRAN % 94.2 % (50.0-68.0); LYMPH # 0.7 (1.2-3.4); LYMPH % 4.3 % (22.0-35.0); MEAN CELL VOLUME 94.5 fl (80.0-105.0); MEAN CORPUSCULAR HEMOGLOBIN 28.6 pg (25.0-35.0); MEAN CORPUSCULAR HGB CONC 30.2 g/dl (31.0-37.0); MEAN PLATELET VOLUME 10.8 fl (7.0-11.0); MONO # 0.2 (0.1-0.6); MONO % 1.4 % (1.0-6.0); PLATELET COUNT 93 10^3/uL (120.0-450.0); RBC 3.64 10^6/uL (3.5-6.1); RED CELL DISTRIBUTION WIDTH 18.4 % (11.5-14.5)
[2018-05-11 07:04] LABS: HEMOGLOBIN 7.3 g/dL (14.0-18.0)
[2018-05-11 07:06] LABS: HEMOGLOBIN 10.4 g/dL (14.0-18.0)
[2018-05-11 07:14] LABS: ALB/GLOB RATIO 0.8 (1.1-1.8); ALBUMIN 2.6 g/dL (3.0-4.8); ALT/SGPT 106 U/L (7-56); AST/SGOT 53 U/L (17-59); BLOOD UREA NITROGEN 46 mg/dL (7-21); GFR NON-AFRICAN AMERICAN > 60
[2018-05-11] MEDS: Budesonide 0.5 mg/2 ml Inhal Susp UD IH SCH ×2 (07:16→20:00)
[2018-05-11] MEDS: Levalbuterol 0.63 MG/3 ML Inhal Soln UD IH SCH ×3 (07:17→20:00)
--- NOTE | 2018-05-11 07:34 | CP.PCM.PN ---
<Anthony Chong - Last Filed: 05/11/18 11:19> Subjective - Date & Time of Evaluation Date of Evaluation: 05/11/18 Time of Evaluation: 07:29 - Subjective Subjective: PGY-2 heme/onc progress note for Dr Bullard No acute events noted overnight. Patient intubated and sedated. Perrla 4 responds to suction/gag. ROS were unobtainable. Objective - Vital Signs/Intake and Output Vital Signs (last 24 hours): Temp Pulse Resp BP Pulse Ox 97.5 F L 155 H 28 H 136/95 H 93 L 05/10/18 12:04 05/11/18 06:43 05/11/18 07:23 05/11/18 06:46 05/11/18 07:23 Intake and Output: 05/11/18 05/11/18 06:59 18:59 Intake Total 100 Balance 100 - Medications Medications: Current Medications Acetaminophen (Tylenol 325mg Tab) 650 mg PO Q6H PRN PRN Reason: Pain, Mild (1-3) Last Admin: 05/09/18 21:38 Dose: 650 mg Acetaminophen (Tylenol 650 Mg Supp) 650 mg RC Q6H PRN PRN Reason: Fever >100.4 F Last Admin: 05/10/18 20:55 Dose: 650 mg Apixaban (Eliquis) 5 mg PO BID [facility]; Protocol Last Admin: 05/06/18 18:44 Dose: 5 mg Aspirin (Aspirin Supp) 300 mg RC DAILY [facility] Last Admin: 05/10/18 09:44 Dose: 300 mg Benzonatate (Tessalon Perles) 100 mg PO TID PRN PRN Reason: Cough Last Admin: 05/05/18 04:09 Dose: 100 mg Budesonide (Pulmicort Respules) 0.5 mg IH [id number] [facility] Last Admin: 05/11/18 07:16 Dose: 0.5 mg Dextrose (Dextrose 50% Inj) 0 ml IV STAT PRN; Protocol PRN Reason: Hypoglycemia Protocol Diltiazem HCl (Cardizem Cd) 120 mg PO DAILY [facility] Last Admin: 05/07/18 11:16 Dose: Not Given Enoxaparin Sodium (Lovenox) 60 mg SC Q12H [facility]; Protocol Last Admin: 05/10/18 23:07 Dose: 60 mg Furosemide (Lasix) 40 mg IV BID [facility] Last Admin: 05/11/18 06:46 Dose: 40 mg Guaifenesin/Dextromethorphan (Robitussin Dm) 5 ml PO Q4H PRN PRN Reason: Cough Last Admin: 05/05/18 04:09 Dose: 5 ml Meropenem (Merrem Iv 1 Gm Premix) 1 gm in 50 mls @ 100 mls/hr IVPB Q8 [facility]; Pro tocol Last Admin: 05/11/18 05:20 Dose: 100 mls/hr Vancomycin HCl (Vancomycin 1gm) 1 gm in 250 mls @ 167 mls/hr IVPB Q12H [facility]; Protocol Last Admin: 05/10/18 17:37 Dose: 167 mls/hr Propofol (Diprivan) 1,000 mg in 100 mls @ 2.15 mls/hr IV .Q24H PRN; Protocol PRN Reason: TITRATE PER MD ORDER Last Titration: 05/09/18 08:19 Dose: 10 mcg/kg/min, 4.3 mls/hr Sodium Chloride (Sodium Chloride 0.9%) 1,000 mls @ 100 mls/hr IV .Q10H [facility] Last Admin: 05/06/18 20:30 Dose: 100 mls/hr NOREPINEPHRINE BIT/0.9 % NACL (Levophed 4 Mg/ 250 Ml Ns Premixed) 4 mg in 250 mls @ 15 mls/hr IV .[id number] PRN; Protocol PRN Reason: TITRATE PER MD ORDER Last Admin: 05/10/18 08:24 Dose: 2 mcg/min, 7.5 mls/hr Amiodarone HCl/Dextrose (Nexterone 360 Mg In D5w 200 Ml (Premix)) 360 mg in 200 mls @ 16.667 mls/hr IV .Q12H [facility]; Protocol Last Admin: 05/11/18 05:15 Dose: Not Given Dexmedetomidine HCl (Precedex 400mcg/100ml) 400 mcg in 100 mls @ 3.357 mls/hr IV .Q24H PRN; Protocol PRN Reason: Sedation Last Admin: 05/10/18 22:46 Dose: 0.6 mcg/kg/hr, 10.07 mls/hr Dextrose (Dextrose 5% In Water 1000 Ml) 1,000 mls @ 0 mls/hr IV .Q0M PRN; Protocol PRN Reason: Hypoglycemia Protocol Micafungin Sodium 100 mg/ (Sodium Chloride) 100 mls @ 100 mls/hr IV DAILY [facility]; Protocol Stop: 05/17/18 13:16 Last Admin: 05/10/18 14:55 Dose: 100 mls/hr Insulin Human Lispro (Humalog High) 0 units SC ACHS [facility]; Protocol Last Admin: 05/10/18 22:51 Dose: Not Given Levalbuterol HCl (Xopenex) 0.63 mg IH [id number] PRN PRN Reason: Shortness of Breath Last Admin: 05/08/18 03:00 Dose: 0.63 mg Levalbuterol HCl (Xopenex) 0.63 mg IH TIDRESP [facility] Last Admin: 05/11/18 07:17 Dose: 0.63 mg Methylprednisolone (Solu-Medrol) 40 mg IVP Q12 [facility] Last Admin: 05/10/18 22:09 Dose: 40 mg Morphine Sulfate (Morphine) 2 mg IVP Q4H PRN PRN Reason: Pain, severe (8-10) Last Admin: 05/10/18 05:21 Dose: 2 mg Nitroglycerin (Nitro-Bid 2% Oint) 0.5 ea TOP Q6H [facility] Last Admin: 05/11/18 04:20 Dose: 0.5 ea Pantoprazole Sodium (Protonix Ec Tab) 40 mg PO 0600 [facility] Last Admin: 05/08/18 05:00 Dose: 40 mg Pantoprazole Sodium (Protonix Inj) 40 mg IVP DAILY [facility] Last Admin: 05/10/18 09:46 Dose: 40 mg Sotalol HCl (Betapace) 40 mg PO BID [facility] Last Admin: 05/11/18 06:43 Dose: 40 mg Tramadol HCl (Ultram) 50 mg PO Q8H PRN PRN Reason: Pain, moderate (4-7) Last Admin: 05/05/18 04:09 Dose: 50 mg Verapamil HCl (Calan Tab) 40 mg PO TID [facility] Last Admin: 05/10/18 17:40 Dose: 40 mg Verapamil HCl (Verapamil Inj) 2.5 mg IVP Q6 PRN PRN Reason: FOR HR GREATER THAN 130 - Labs Labs: 05/11/18 06:20 05/11/18 06:20 PT 25.7 SECONDS (9.4-12.5) H 05/07/18 06:30 INR 2.20 05/07/18 06:30 APTT 25.5 Seconds (25.1-36.5) 05/07/18 06:30 - Additional Findings Additional findings: - Constitutional Appears: Cachectic, Chronically Ill - Head Exam Head Exam: ATRAUMATIC, NORMAL INSPECTION - Eye Exam Eye Exam: EOMI, Normal appearance, PERRL. absent: Scleral icterus - ENT Exam ENT Exam: Mucous Membranes Moist - Neck Exam Neck Exam: Full ROM - Respiratory Exam Respiratory Exam: Decreased Breath Sounds, NORMAL BREATHING PATTERN. absent: Clear to Ausculation Bilateral - Cardiovascular Exam Cardiovascular Exam: Tachycardia, REGULAR RHYTHM, +S1, +S2. absent: Murmur - GI/Abdominal Exam GI & Abdominal Exam: Soft, Normal Bowel Sounds. 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 Patient was diagnosed with sepsis 2/2 to HCAP. On 05/05, patient became hypoxia and was in respiratory distress. Patient was intubated and sedated with propofol and versed. #History of small cell lung cancer stage 4 on radiation and chemotherapy -progression of disease from metastatic cancer vs aspiration pneumonia vs hospital-acquired pneumonic process in immuocompromised patient currently on systemic chemotherapy, completed six cycles of carboplatin and etoposide and then maintained on Tecentriq and also iridium, which is the bisphosphonate for metastatic disease in the bone -currently on Tecentriq * Tecentriq - 47% association with pneumonitis as complication of treatment * should improve on steroids - on methyprednisolone 40mg ivp q12h -most recent PET CT scan ~3 weeks ago showed dramatic improvement in his disease -currently intubated and sedated - continue to maintain oxygen saturation and continue steroids - if condition does not improve in next 24 hours we will plan on supportive care alone #SIRS, consider sepsis due to multifocal HCAP -CT of chest showed multifocal pneumonia. Patient completed 7 days of merrem and doxycycline on the floors. Now on vancomycin 1g q12h and merrem 1g q8h which has been stopped. He is currently not on any abx. ID Dr Urrutia has been consulted. -blood cx and flu negative #History of atrial fibrillation #NSTEMI -He released troponins, he also has AFib with RVR - he is on lovenox 60mg ivp q12h - his home eliquis 5mg bid is on hold, he is also receiving aspirin 300mg rectally, he is on sotalol 40mg po bid, his cardizem is currently being held. He is currently on amio drip. He is currently on verapmail 40mg po tid and verapil 2.5mg ivp q6h prn. He is on lasix 40mg iv bid. Cardio Dr Orozco is consulted. #COPD -Per pulm recommendation - continue pulmicort 0.5mg ih q12h and xopenex 0.63mg ih q6h prn and scheduled. Seen and discussed with Dr Bullard <Anu Bullard P - Last Filed: 05/18/18 22:01> Objective - Vital Signs/Intake and Output Vital Signs (last 24 hours): Temp Pulse Resp BP Pulse Ox 97.5 F L 65 21 95/45 L 100 05/18/18 14:00 05/18/18 18:00 05/16/18 07:03 05/18/18 13:59 05/18/18 14:00 Intake and Output: 05/18/18 05/19/18 18:59 06:59 Intake Total 2824 Balance 2824 - Medications Medications: Current Medications Acetaminophen (Tylenol 650 Mg Supp) 650 mg RC Q6H PRN PRN Reason: Fever >100.4 F Last Admin: 05/10/18 20:55 Dose: 650 mg Acetaminophen (Tylenol 650mg/20.3ml Solution Ud) 650 mg NG Q6H PRN PRN Reason: FEVER > 100.4 Last Admin: 05/14/18 09:29 Dose: 650 mg Aspirin (Aspirin Chewable) 81 mg PO DAILY [facility] Last Admin: 05/18/18 10:38 Dose: 81 mg Budesonide (Pulmicort Respules) 0.5 mg IH [id number] [facility] Last Admin: 05/18/18 19:43 Dose: 0.5 mg Dextrose (Dextrose 50% Inj) 0 ml IV STAT PRN; Protocol PRN Reason: Hypoglycemia Protocol Dextrose (Dextrose 50% Inj) 0 ml IV STAT PRN; Protocol PRN Reason: Hypoglycemia Protocol Diltiazem HCl (Cardizem Cd) 120 mg PO DAILY [facility] Last Admin: 05/07/18 11:16 Dose: Not Given Hydromorphone HCl (Dilaudid) 0.5 mg IVP Q4H PRN PRN Reason: Pain, severe (8-10) Last Admin: 05/18/18 06:32 Dose: 0.5 mg Meropenem (Merrem Iv 1 Gm Premix) 1 gm in 50 mls @ 100 mls/hr IVPB Q8 [facility]; Protocol Last Admin: 05/18/18 14:38 Dose: 100 mls/hr Dexmedetomidine HCl (Precedex 400mcg/100ml) 400 mcg in 100 mls @ 3.357 mls/hr IV .Q24H PRN; Protocol PRN Reason: Sedation Last Titration: 05/17/18 22:54 Dose: 0 mcg/kg/hr, 0 mls/hr Dextrose (Dextrose 5% In Water 1000 Ml) 1,000 mls @ 0 mls/hr IV .Q0M PRN; Protocol PRN Reason: Hypoglycemia Protocol Fentanyl Citrate (Fentanyl Citrate/Sodium Chloride 1 Mg/100 Ml) 1,000 mcg in 100 mls @ 2 mls/hr IV .Q24H PRN; Protocol PRN Reason: TITRATE PER MD ORDER Last Admin: 05/18/18 11:26 Dose: 70 mcg/hr, 7 mls/hr Dextrose (Dextrose 5% In Water 1000 Ml) 1,000 mls @ 0 mls/hr IV .Q0M PRN; Protocol PRN Reason: Hypoglycemia Protocol Insulin Human Lispro (Humalog High) 0 units SC Q6 [facility]; Protocol Last Admin: 05/18/18 16:45 Dose: 7 unit Levalbuterol HCl (Xopenex) 0.63 mg IH [id number] PRN PRN Reason: Shortness of Breath Last Admin: 05/15/18 02:05 Dose: 0.63 mg Levalbuterol HCl (Xopenex) 0.63 mg IH TIDRESP [facility] Last Admin: 05/18/18 19:43 Dose: 0.63 mg Methylprednisolone (Solu-Medrol) 20 mg IVP Q12 [facility] Pantoprazole Sodium (Protonix Inj) 40 mg IVP DAILY [facility] Last Admin: 05/18/18 10:38 Dose: 40 mg Propranolol HCl (Inderal) 20 mg PO Q6H [facility] Last Admin: 05/18/18 16:44 Dose: 20 mg Sotalol HCl (Betapace) 40 mg PO BID [facility] Last Admin: 05/11/18 09:16 Dose: Not Given Verapamil HCl (Calan Tab) 40 mg PO TID [facility] Last Admin: 05/11/18 09:16 Dose: Not Given Verapamil HCl (Verapamil Inj) 2.5 mg IVP Q6 PRN PRN Reason: FOR HR GREATER THAN 130 Last Admin: 05/17/18 13:34 Dose: 2.5 mg - Labs Labs: 05/18/18 05:40 05/18/18 05:40 PT 14.0 SECONDS (9.4-12.5) H 05/15/18 20:43 INR 1.26 05/15/18 20:43 APTT 30.5 Seconds (26.9-38.3) 05/15/18 20:43 Attending/Attestation - Attestation I have personally seen and examined this patient.: Yes I have fully participated in the care of the patient.: Yes I have reviewed all pertinent clinical information, including history, physical exam and plan: Yes
[2018-05-11 08:06] LABS: MONOCYTE 5 % (1.0-6.0); NEUTROPHIL 95 % (50.0-70.0)
[2018-05-11 08:07] LABS: LARGE PLATELETS PRESENT; PLATELET ESTIMATE LOW (NORMAL)
[2018-05-11] MEDS: Insulin Lispro (HUMAlog) HIGH Coverage SC SCH ×4 (08:07→21:48)
[2018-05-11] MEDS: Morphine 2 mg/ml ISec IVP PRN (08:08)
--- NOTE | 2018-05-11 08:41 | CP.CCUPN ---
<Haley Mckeon - Last Filed: 05/11/18 10:37> CCU Subjective - Physician Review Subjective (Free Text): Haley Mckeon, PGY-1, ICU Progress Note for Dr. Gtz Patient seen and evaluated at bedside. Overnight, patient's heart rate normal sinus rhythm but became tachycardia in the 140-150s at 6:00 this morning. Cardizem drip was started at 10 cc/hr. Precedex was reduced to 0.6 vernight. Patient is currently intubated and sedated with vent settings of 400/18/12/70%, but has been overbreathing the ventilator with a respiratory rate of 35. CCU Objective - Vital Signs / Intake & Output Vital Signs (Last 4 hours): Vital Signs Pulse Resp BP Pulse Ox 05/11/18 08:33 145 H 145/99 H 05/11/18 07:23 28 H 93 L 05/11/18 06:46 136/95 H 05/11/18 06:43 155 H 136/95 H 05/11/18 05:37 84 Intake and Output (Last 8hrs): Intake & Output 05/10/18 05/11/18 05/11/18 22:59 06:59 14:59 Intake Total 1182 702 Output Total 1650 1200 Balance -468 -498 Weight 154 lb Intake: IV 462 430 Left 350 Left Hand 120 Right Forearm 12 310 Tube Feeding 720 272 Output: Urine 1650 1200 Urethral (Yang) 1650 1200 Other: # Bowel Movements 2 - Physical Exam Head: Positive for: Atraumatic, Normocephalic Pupils: Positive for: PERRL Extroacular Muscles: Positive for: EOMI Conjunctiva: Positive for: Normal Mouth: Positive for: Moist Mucous Membranes Neck: Positive for: Normal Range of Motion Respiratory/Chest: Positive for: Respiratory Distress, Wheezes, Rales, Other (currently on ventilator). Negative for: Accessory Muscle Use Cardiovascular: Positive for: Normal S1, S2, Irregular Rhythm, Tachycardic. Negative for: Murmurs Abdomen: Negative for: Tenderness, Distention, Peritoneal Signs Back: Positive for: Normal Inspection Upper Extremity: Positive for: Normal Inspection. Negative for: Cyanosis, Edema Lower Extremity: Positive for: Normal Inspection. Negative for: Edema Neurological: Positive for: CN II-XII Intact, Other (intubated) Skin: Positive for: Warm, Dry, Normal Color, Other (R IJ central port noted). Negative for: Rashes Psychiatric: Positive for: Alert, Oriented x 3, Normal Insight, Normal Concentration - Medications Active Medications: Active Medications Generic Name Dose Route Start Last Admin Trade Name Freq PRN Reason Stop Dose Admin Acetaminophen 650 mg 05/04/18 09:27 05/09/18 21:38 Tylenol 325mg Tab PO 650 mg Q6H PRN Administration Pain, Mild (1-3) Acetaminophen 650 mg 05/10/18 20:29 05/10/18 20:55 Tylenol 650 Mg Supp RC 650 mg Q6H PRN Administration Fever >100.4 F Apixaban 5 mg 04/27/18 10:00 05/06/18 18:44 Eliquis PO 5 mg BID ZARI Administration Protocol Aspirin 300 mg 05/08/18 10:00 05/10/18 09:44 Aspirin Supp RC 300 mg DAILY ZARI Administration Benzonatate 100 mg 04/26/18 22:48 05/05/18 04:09 Tessalon Perles PO 100 mg TID PRN Administration Cough Budesonide 0.5 mg 04/27/18 20:00 05/11/18 07:16 Pulmicort Respules IH 0.5 mg [id number] ZARI Administration Dextrose 0 ml 05/09/18 10:48 Dextrose 50% Inj IV STAT PRN Hypoglycemia Protocol Protocol Diltiazem HCl 120 mg 04/27/18 10:00 05/07/18 11:16 Cardizem Cd PO Not Given DAILY ZARI Enoxaparin Sodium 60 mg 05/07/18 10:15 05/10/18 23:07 Lovenox SC 60 mg Q12H ZARI Administration Protocol Furosemide 40 mg 05/08/18 10:00 05/11/18 06:46 Lasix IV 40 mg BID ZARI Administration Guaifenesin/Dextromethorphan 5 ml 04/26/18 22:53 05/05/18 04:09 Robitussin Dm PO 5 ml Q4H PRN Administration Cough Meropenem 1 gm in 50 mls @ 100 mls/hr 05/05/18 15:15 05/11/18 05:20 Merrem Iv 1 Gm Premix IVPB 100 mls/hr Q8 ZARI Administration Protocol Vancomycin HCl 1 gm in 250 mls @ 167 mls/hr 05/05/18 15:15 05/11/18 04:30 Vancomycin 1gm IVPB 167 mls/hr Q12H ZARI Administration Protocol Propofol 1,000 mg in 100 mls @ 2.15 mls/hr 05/05/18 15:24 05/09/18 08:19 Diprivan IV 10 mcg/kg/min .Q24H PRN 4.3 mls/hr TITRATE PER MD ORDER Titration Protocol 5 MCG/KG/MIN Sodium Chloride 1,000 mls @ 100 mls/hr 05/06/18 20:42 05/06/18 20:30 Sodium Chloride 0.9% IV 100 mls/hr .Q10H ZARI Administration NOREPINEPHRINE BIT/0.9 % NACL 4 mg in 250 mls @ 15 mls/hr 05/08/18 17:16 05/10/18 08:24 Levophed 4 Mg/ 250 Ml Ns Premixed IV 2 mcg/min .[id number] PRN 7.5 mls/hr TITRATE PER MD ORDER Administration Protocol 4 MCG/MIN Amiodarone HCl/Dextrose 360 mg in 200 mls @ 16.667 mls/hr 05/09/18 00:00 05/11/18 05:15 Nexterone 360 Mg In D5w 200 Ml (Premix) IV Not Given .Q12H ZARI Protocol 0.5 MG/MIN Dexmedetomidine HCl 400 mcg in 100 mls @ 3.357 mls/hr 05/09/18 10:31 05/10/18 22:46 Precedex 400mcg/100ml IV 0.6 mcg/kg/hr .Q24H PRN 10.07 mls/hr Sedation Administration Protocol 0.2 MCG/KG/HR Dextrose 1,000 mls @ 0 mls/hr 05/09/18 10:48 Dextrose 5% In Water 1000 Ml IV .Q0M PRN Hypoglycemia Protocol Protocol Per Protocol Micafungin Sodium 100 mg/ 100 mls @ 100 mls/hr 05/10/18 13:15 05/10/18 14:55 Sodium Chloride IV 05/17/18 13:16 100 mls/hr DAILY ZARI Administration Protocol diltiaZEM IVPB 100mg in NS 100 mls @ 10 mls/hr 05/11/18 08:12 Cardizem 100mg In Ns IV .Q10H PRN TITRATE PER MD ORDER Protocol 10 MG/HR Insulin Human Lispro 0 units 05/09/18 11:30 05/11/18 08:07 Humalog High SC 7 u ACHS ZARI Administration Protocol Levalbuterol HCl 0.63 mg 04/27/18 12:16 05/08/18 03:00 Xopenex IH 0.63 mg [id number] PRN Administration Shortness of Breath Levalbuterol HCl 0.63 mg 04/28/18 20:00 05/11/18 07:17 Xopenex IH 0.63 mg TIDRESP ZARI Administration Methylprednisolone 40 mg 05/07/18 10:15 05/10/18 22:09 Solu-Medrol IVP 40 mg Q12 ZARI Administration Morphine Sulfate 2 mg 05/06/18 12:03 05/11/18 08:08 Morphine IVP 2 mg Q4H PRN Administration Pain, severe (8-10) Nitroglycerin 0.5 ea 05/07/18 09:30 05/11/18 04:20 Nitro-Bid 2% Oint TOP 0.5 ea Q6H ZARI Administration Pantoprazole Sodium 40 mg 05/02/18 21:00 05/08/18 05:00 Protonix Ec Tab PO 40 mg 0600 ZARI Administration Pantoprazole Sodium 40 mg 05/09/18 10:00 05/10/18 09:46 Protonix Inj IVP 40 mg DAILY ZARI Administration Sotalol HCl 40 mg 05/09/18 10:00 05/11/18 06:43 Betapace PO 40 mg BID ZARI Administration Tramadol HCl 50 mg 05/04/18 09:27 05/05/18 04:09 Ultram PO 50 mg Q8H PRN Administration Pain, moderate (4-7) Verapamil HCl 40 mg 05/10/18 14:00 05/10/18 17:40 Calan Tab PO 40 mg TID ZARI Administration Verapamil HCl 2.5 mg 05/10/18 12:31 Verapamil Inj IVP Q6 PRN FOR HR GREATER THAN 130 - Patient Studies Lab Studies: Microbiology Studies 05/05/18 15:30 Blood Culture - Final Blood-Venous NO GROWTH AFTER 5 DAYS Gram Stain - Final TEST NOT PERFORMED 05/05/18 16:00 Blood Culture - Final Blood-Venous NO GROWTH AFTER 5 DAYS Gram Stain - Final TEST NOT PERFORMED 05/09/18 08:30 Blood Culture - Preliminary Blood-Venous NO GROWTH AFTER 24 HOURS 05/09/18 08:10 Blood Culture - Preliminary Blood-Venous NO GROWTH AFTER 24 HOURS Lab Studies 05/11/18 05/11/18 05/11/18 Range/Units 06:20 06:20 04:00 WBC 16.0 H D (4.5-11.0) 10^3/uL RBC 3.64 (3.5-6.1) 10^6/uL Hgb 10.4 L D (14.0-18.0) g/dL Hct 34.4 L (42.0-52.0) % MCV 94.5 (80.0-105.0) fl MCH 28.6 (25.0-35.0) pg MCHC 30.2 L (31.0-37.0) g/dl RDW 18.4 H (11.5-14.5) % Plt Count 93 L (120.0-450.0) 10^3/uL MPV 10.8 (7.0-11.0) fl Gran % 94.2 H (50.0-68.0) % Lymph % (Auto) 4.3 L (22.0-35.0) % [place] % (Auto) 1.4 (1.0-6.0) % Eos % (Auto) 0.0 L (1.5-5.0) % Baso % (Auto) 0.1 (0.0-3.0) % Gran # 15.09 H (1.4-6.5) Lymph # (Auto) 0.7 L (1.2-3.4) [place] # (Auto) 0.2 (0.1-0.6) Eos # (Auto) 0.0 (0.0-0.7) Baso # (Auto) 0.01 (0.0-2.0) K/mm3 Neutrophils % (Manual) 95 H (50.0-70.0) % Lymphocytes % (Manual) TEST NOT PERFORMED Monocytes % (Manual) 5 (1.0-6.0) % Platelet Evaluation Low (NORMAL) Large Platelets Present pCO2 53 H (35-45) mm/Hg pO2 51.0 L (80-100) mm/Hg HCO3 39.5 H (21-28) mmol/L ABG pH 7.48 H (7.35-7.45) ABG Total CO2 41.1 H (22-28) mmol.L ABG O2 Saturation 91.7 L (95-98) % ABG O2 Content 12.6 L (15-23) ML/dl ABG Base Excess 14.1 H (-2.0-3.0) mmol/L ABG Hemoglobin 10.1 L (11.7-17.4) g/dL ABG Carboxyhemoglobin 2.9 H (0.5-1.5) % POC ABG HHb (Measured) 8.0 H (0-5) % ABG Methemoglobin 0.8 (0.0-3.0) % ABG O2 Capacity 13.7 L (16-24) mL/dl Hgb O2 Saturation 88.4 L (95.0-98.0) % FiO2 60.0 % Sodium 142 (132-148) mmol/L Potassium 4.2 (3.6-5.0) mmol/L Chloride 102 (98-107) mmol/L Carbon Dioxide 39 H (21-33) mmol/L Anion Gap 5 L (10-20) BUN 46 H (7-21) mg/dL Creatinine 0.8 (0.8-1.5) mg/dl Est GFR ( Amer) > 60 Est GFR (Non-Af Amer) > 60 POC Glucose (mg/dL) (65-110) mg/dL Random Glucose 220 H (70-110) mg/dL Calcium 8.0 L (8.4-10.5) mg/dL Total Bilirubin 0.5 (0.2-1.3) mg/dL AST 53 (17-59) U/L ALT 106 H (7-56) U/L Alkaline Phosphatase 168 H (38-126) U/L Total Protein 6.1 (5.8-8.3) g/dL Albumin 2.6 L (3.0-4.8) g/dL Globulin 3.5 gm/dL Albumin/Globulin Ratio 0.8 L (1.1-1.8) 05/10/18 05/10/18 05/10/18 Range/Units 22:07 16:05 10:58 WBC (4.5-11.0) 10^3/uL RBC (3.5-6.1) 10^6/uL Hgb (14.0-18.0) g/dL Hct (42.0-52.0) % MCV (80.0-105.0) fl MCH (25.0-35.0) pg MCHC (31.0-37.0) g/dl RDW (11.5-14.5) % Plt Count (120.0-450.0) 10^3/uL MPV (7.0-11.0) fl Gran % (50.0-68.0) % Lymph % (Auto) (22.0-35.0) % [place] % (Auto) (1.0-6.0) % Eos % (Auto) (1.5-5.0) % Baso % (Auto) (0.0-3.0) % Gran # (1.4-6.5) Lymph # (Auto) (1.2-3.4) [place] # (Auto) (0.1-0.6) Eos # (Auto) (0.0-0.7) Baso # (Auto) (0.0-2.0) K/mm3 Neutrophils % (Manual) (50.0-70.0) % Lymphocytes % (Manual) Monocytes % (Manual) (1.0-6.0) % Platelet Evaluation (NORMAL) Large Platelets pCO2 (35-45) mm/Hg pO2 (80-100) mm/Hg HCO3 (21-28) mmol/L ABG pH (7.35-7.45) ABG Total CO2 (22-28) mmol.L ABG O2 Saturation (95-98) % ABG O2 Content (15-23) ML/dl ABG Base Excess (-2.0-3.0) mmol/L ABG Hemoglobin (11.7-17.4) g/dL ABG Carboxyhemoglobin (0.5-1.5) % POC ABG HHb (Measured) (0-5) % ABG Methemoglobin (0.0-3.0) % ABG O2 Capacity (16-24) mL/dl Hgb O2 Saturation (95.0-98.0) % FiO2 % Sodium (132-148) mmol/L Potassium (3.6-5.0) mmol/L Chloride (98-107) mmol/L Carbon Dioxide (21-33) mmol/L Anion Gap (10-20) BUN (7-21) mg/dL Creatinine (0.8-1.5) mg/dl Est GFR ( Amer) Est GFR (Non-Af Amer) POC Glucose (mg/dL) 197 H 154 H 206 H (65-110) mg/dL Random Glucose (70-110) mg/dL Calcium (8.4-10.5) mg/dL Total Bilirubin (0.2-1.3) mg/dL AST (17-59) U/L ALT (7-56) U/L Alkaline Phosphatase (38-126) U/L Total Protein (5.8-8.3) g/dL Albumin (3.0-4.8) g/dL Globulin gm/dL Albumin/Globulin Ratio (1.1-1.8) 05/10/18 05/10/18 Range/Units 07:14 05:35 WBC (4.5-11.0) 10^3/uL RBC (3.5-6.1) 10^6/uL Hgb 7.3 L D (14.0-18.0) g/dL Hct (42.0-52.0) % MCV (80.0-105.0) fl MCH (25.0-35.0) pg MCHC (31.0-37.0) g/dl RDW (11.5-14.5) % Plt Count (120.0-450.0) 10^3/uL MPV (7.0-11.0) fl Gran % (50.0-68.0) % Lymph % (Auto) (22.0-35.0) % [place] % (Auto) (1.0-6.0) % Eos % (Auto) (1.5-5.0) % Baso % (Auto) (0.0-3.0) % Gran # (1.4-6.5) Lymph # (Auto) (1.2-3.4) [place] # (Auto) (0.1-0.6) Eos # (Auto) (0.0-0.7) Baso # (Auto) (0.0-2.0) K/mm3 Neutrophils % (Manual) (50.0-70.0) % Lymphocytes % (Manual) Monocytes % (Manual) (1.0-6.0) % Platelet Evaluation (NORMAL) Large Platelets pCO2 (35-45) mm/Hg pO2 (80-100) mm/Hg HCO3 (21-28) mmol/L ABG pH (7.35-7.45) ABG Total CO2 (22-28) mmol.L ABG O2 Saturation (95-98) % ABG O2 Content (15-23) ML/dl ABG Base Excess (-2.0-3.0) mmol/L ABG Hemoglobin (11.7-17.4) g/dL ABG Carboxyhemoglobin (0.5-1.5) % POC ABG HHb (Measured) (0-5) % ABG Methemoglobin (0.0-3.0) % ABG O2 Capacity (16-24) mL/dl Hgb O2 Saturation (95.0-98.0) % FiO2 % Sodium (132-148) mmol/L Potassium (3.6-5.0) mmol/L Chloride (98-107) mmol/L Carbon Dioxide (21-33) mmol/L Anion Gap (10-20) BUN (7-21) mg/dL Creatinine (0.8-1.5) mg/dl Est GFR ( Amer) Est GFR (Non-Af Amer) POC Glucose (mg/dL) 234 H (65-110) mg/dL Random Glucose (70-110) mg/dL Calcium (8.4-10.5) mg/dL Total Bilirubin (0.2-1.3) mg/dL AST (17-59) U/L ALT (7-56) U/L Alkaline Phosphatase (38-126) U/L Total Protein (5.8-8.3) g/dL Albumin (3.0-4.8) g/dL Globulin gm/dL Albumin/Globulin Ratio (1.1-1.8) Laboratory Results - last 24 hr 05/10/18 05/10/18 05/10/18 05:35 07:14 10:58 WBC RBC Hgb 7.3 L D Hct MCV MCH MCHC RDW Plt Count MPV Gran % Lymph % (Auto) [place] % (Auto) Eos % (Auto) Baso % (Auto) Gran # Lymph # (Auto) [place] # (Auto) Eos # (Auto) Baso # (Auto) Neutrophils % (Manual) Lymphocytes % (Manual) Monocytes % (Manual) Platelet Evaluation Large Platelets pCO2 pO2 HCO3 ABG pH ABG Total CO2 ABG O2 Saturation ABG O2 Content ABG Base Excess ABG Hemoglobin ABG Carboxyhemoglobin POC ABG HHb (Measured) ABG Methemoglobin ABG O2 Capacity Hgb O2 Saturation FiO2 Sodium Potassium Chloride Carbon Dioxide Anion Gap BUN Creatinine Est GFR ( Amer) Est GFR (Non-Af Amer) POC Glucose (mg/dL) 234 H 206 H Random Glucose Calcium Total Bilirubin AST ALT Alkaline Phosphatase Total Protein Albumin Globulin Albumin/Globulin Ratio 05/10/18 05/10/18 05/11/18 16:05 22:07 04:00 WBC RBC Hgb Hct MCV MCH MCHC RDW Plt Count MPV Gran % Lymph % (Auto) [place] % (Auto) Eos % (Auto) Baso % (Auto) Gran # Lymph # (Auto) [place] # (Auto) Eos # (Auto) Baso # (Auto) Neutrophils % (Manual) Lymphocytes % (Manual) Monocytes % (Manual) Platelet Evaluation Large Platelets pCO2 53 H pO2 51.0 L HCO3 39.5 H ABG pH 7.48 H ABG Total CO2 41.1 H ABG O2 Saturation 91.7 L ABG O2 Content 12.6 L ABG Base Excess 14.1 H ABG Hemoglobin 10.1 L ABG Carboxyhemoglobin 2.9 H POC ABG HHb (Measured) 8.0 H ABG Methemoglobin 0.8 ABG O2 Capacity 13.7 L Hgb O2 Saturation 88.4 L FiO2 60.0 Sodium Potassium Chloride Carbon Dioxide Anion Gap BUN Creatinine Est GFR ( Amer) Est GFR (Non-Af Amer) POC Glucose (mg/dL) 154 H 197 H Random Glucose Calcium Total Bilirubin AST ALT Alkaline Phosphatase Total Protein Albumin Globulin Albumin/Globulin Ratio 05/11/18 05/11/18 06:20 06:20 WBC 16.0 H D RBC 3.64 Hgb 10.4 L D Hct 34.4 L MCV 94.5 MCH 28.6 MCHC 30.2 L RDW 18.4 H Plt Count 93 L MPV 10.8 Gran % 94.2 H Lymph % (Auto) 4.3 L [place] % (Auto) 1.4 Eos % (Auto) 0.0 L Baso % (Auto) 0.1 Gran # 15.09 H Lymph # (Auto) 0.7 L [place] # (Auto) 0.2 Eos # (Auto) 0.0 Baso # (Auto) 0.01 Neutrophils % (Manual) 95 H Lymphocytes % (Manual) TEST NOT PERFORMED Monocytes % (Manual) 5 Platelet Evaluation Low Large Platelets Present pCO2 pO2 HCO3 ABG pH ABG Total CO2 ABG O2 Saturation ABG O2 Content ABG Base Excess ABG Hemoglobin ABG Carboxyhemoglobin POC ABG HHb (Measured) ABG Methemoglobin ABG O2 Capacity Hgb O2 Saturation FiO2 Sodium 142 Potassium 4.2 Chloride 102 Carbon Dioxide 39 H Anion Gap 5 L BUN 46 H Creatinine 0.8 Est GFR ( Amer) > 60 Est GFR (Non-Af Amer) > 60 POC Glucose (mg/dL) Random Glucose 220 H Calcium 8.0 L Total Bilirubin 0.5 AST 53 ALT 106 H Alkaline Phosphatase 168 H Total Protein 6.1 Albumin 2.6 L Globulin 3.5 Albumin/Globulin Ratio 0.8 L Radiology Impressions: Radiology Impressions Chest X-Ray 05/10/18 07:00 IMPRESSION: Slight improvement in bilateral infiltrates Fingerstick Blood Sugar Results: 254 Review of Systems - Review of Systems Systems not reviewed;Unavailable: Intubated Critical Care Progress Note - Ventilator Checklist Head of Bed 30 Degrees: Yes PUD Prophalyxis: Yes DVT Prophylaxis: Yes - Vent Settings MODE:: PRVC TIDAL VOLUME:: 400 RESP RATE:: 18 FIO2:: 70 PEEP:: 12 - Nutrition Nutrition: Nutrition Category Date Time Status NPO Diet [DIET] Diets 05/06/18 Breakfast Ordered Assessment/Plan - Assessment and Plan (Free Text) Assessment: 77 year old male with past medical history of 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 Patient was diagnosed with sepsis 2/2 to HCAP. On 05/05, patient became hypoxia and was in respiratory distress. Patient was intubated and sedated with propofol and versed. Plan: Neuro: Status post intubation -Intubated and started on precedex 0.6. -Head CT showed no acute intracranial abnormalities -Follow up EEG results to evaluate neurological status. Cardio: NSTEMI -EKG 05/10: Atrial flutter with 2:1 AV block with HR: 156 -Troponin: 10.9, 9.66, 8.96, 6.33 -Continue Aspirin 300 mg rectally -Continue Lovenox 60 mg Q12 -Continue Betapace 40 mg BID Atrial flutter -EKG 05/10: Atrial flutter with 2:1 AV block with HR: 156 -Troponin: 10.9, 9.66, 8.96, 6.33 -Cardizem drip started at 10 cc/hr with a 10 cc bolus. If patient's blood pressure decreases below 90/60, reduce to 5 cc/hr -Continue Lovenox 60 mg Q12 -Continue sotalol 40 mg BID -Cardizem 120 mg PO daily held -Eliquis 5 mg BID held -Maintain MAP>65. -Monitor for S/S, HD compromise. Elevated BNP -BNP: 3240 -Echocardiogram 05/07: EF: 49.3%, trace AR, MR, RVSP: 50 -Patient currently has a negative fluid intake to output. -Likely diastolic congestive heart failure -Continue fluid restriction -Continue Sotalol 40 mg PO BID -Start Lasix drip at 1 mg/hr Pulm: Hypoxic respiratory failure 2/2 to ARDS from small cell lung carcinoma vs. pneumonitis -Patient intubated and sedated with settings 400/18/12/70%. -Maintain O2 saturation>92%. -ABG 05/11: pH: 7.48, pO2: 51 pCO2: 53 -As per Dr. Bullard, Heme/Onc, patient has possible pneumonitis as complication of Tecentriq treatment for small cell lung carcinoma -Treat Tecentriq side effect with solumedrol 60 mg Q6 -Daily ABG and CXR -Weaning and sedation trials daily -Elevate bed to 30 degrees -Oral protective hygiene daily -Conservative fluid management continued COPD -Continue with Pulmicort 0.5 mg IH Q12, and xopenex 0.63 mg IH TID -Start solumedrol 60 mg Q6 Multifocal pneumonia -CXR 05/11: extensive bilateral pulmonary opacities. worsened from yesterday. confirmed placement of ET tube -Chest CT 04/27: multifocal pneumonia -Continue with vancomycin 1 gm Q12 and merrem 1 gm Q8 day 6 GI: Elevated LFTs -Worsening ALT, ALP. Improved AST. -Likely due to congestive hepatopathy -Continue to trend via CMP Diet -NPO. -Currently getting Jevity tube feedings with starting rate at 20 cc/hr and will increase by 10 cc/hr up to goal rate of 60 cc/hr GI prophylaxis -Protonix 40 mg daily /Nephro: -BUN/Cr stable at 46/0.8 -Yang in place with sufficient output -Negative fluid balance -Continue diuresis with lasix 40 mg IV BID -Continue monitoring. -Replete electrolytes as needed. -Maintain euvolemia. Endocrinology: -Random glucose: 220 -HgbA1c: 6.2 -High dose sliding scale insulin -Maintain euglycemia. Heme/Onc: Anemia -H/H improved to 10.4/34.4 -Consider transfusion if Hgb<7 -No signs of HD compromise. -Continue monitoring H/H Small cell lung carcinoma -Patient was being treated with Tecentriq but drug has been held until patient's possible infectious process has cleared -Side effect of Tecentriq is pneumonitis -Treat pneumonitis with solumedrol 60 mg Q6 -Recent PET CT shows improvement in small cell lung carcinoma -Progression of disease seems less likely. -Follow recommendations, as per Dr. Bullard, Heme/Once DVT prophylaxis -Eliquis 5 mg BID currently held -Lovenox 60 mg Q12 as therapeutic anticoagulation for NSTEMI ID: Multifocal pneumonia -CXR 05/09: extensive bilateral pulmonary opacities. improved from previous CXR -Chest CT 04/27: multifocal pneumonia -Afebrile, leukocytosis worsened to 16.0 from 13.3 -Blood culture was negative for 5 days upon admission from 05/05. Blood culture reordered was negative for 2 days. -Follow up sputum culture -Procal 05/05: 0.55. Repeat procal was 0.62 -Vancomycin 1 gm Q12 day 6 -Merrem 1 gm Q8 day 6 -Nystatin 5 mg QID -Monitor for signs and symptoms of infection. Disposition: Dr. Gtz, Dr. Bullard, and I spoke to the family. Family understand very poor prognosis of the patient but are not ready for changing code status at this time. We will continue to follow up with family for updates. Patient seen and examined with Dr. Gtz. - Date & Time Date: 05/11/18 Time: 08:41 <Shay Gtz - Last Filed: 05/11/18 15:38> CCU Objective - Vital Signs / Intake & Output Vital Signs (Last 4 hours): Vital Signs Pulse BP Pulse Ox 05/11/18 15:00 76 100/55 L 97 05/11/18 14:30 73 88/38 L 94 L 05/11/18 14:00 81 94/41 L 96 05/11/18 13:30 73 91/41 L 95 05/11/18 13:00 72 79/42 L 89 L 05/11/18 12:30 89 84/47 L 96 05/11/18 12:00 84 91/50 L 94 L Intake and Output (Last 8hrs): Intake & Output 05/11/18 05/11/18 05/11/18 06:59 14:59 22:59 Intake Total 702 193 Output Total 1200 Balance -498 193 Weight 154 lb Intake: IV 430 193 Left Hand 120 Right Forearm 310 Tube Feeding 272 Output: Urine 1200 Urethral (Yang) 1200 - Medications Active Medications: Active Medications Generic Name Dose Route Start Last Admin Trade Name Freq PRN Reason Stop Dose Admin Acetaminophen 650 mg 05/04/18 09:27 05/11/18 09:21 Tylenol 325mg Tab PO 650 mg Q6H PRN Administration Pain, Mild (1-3) Acetaminophen 650 mg 05/10/18 20:29 05/10/18 20:55 Tylenol 650 Mg Supp RC 650 mg Q6H PRN Administration Fever >100.4 F Aspirin 300 mg 05/08/18 10:00 05/11/18 09:27 Aspirin Supp RC 300 mg DAILY ZARI Administration Benzonatate 100 mg 04/26/18 22:48 05/05/18 04:09 Tessalon Perles PO 100 mg TID PRN Administration Cough Budesonide 0.5 mg 04/27/18 20:00 05/11/18 07:16 Pulmicort Respules IH 0.5 mg [id number] ZARI Administration Dextrose 0 ml 05/09/18 10:48 Dextrose 50% Inj IV STAT PRN Hypoglycemia Protocol Protocol Diltiazem HCl 120 mg 04/27/18 10:00 05/07/18 11:16 Cardizem Cd PO Not Given DAILY ZARI Enoxaparin Sodium 60 mg 05/07/18 10:15 05/11/18 09:23 Lovenox SC 60 mg Q12H ZARI Administration Protocol Guaifenesin/Dextromethorphan 5 ml 04/26/18 22:53 05/05/18 04:09 Robitussin Dm PO 5 ml Q4H PRN Administration Cough Meropenem 1 gm in 50 mls @ 100 mls/hr 05/05/18 15:15 05/11/18 13:19 Merrem Iv 1 Gm Premix IVPB 100 mls/hr Q8 ZARI Administration Protocol Vancomycin HCl 1 gm in 250 mls @ 167 mls/hr 05/05/18 15:15 05/11/18 14:48 Vancomycin 1gm IVPB 167 mls/hr Q12H ZARI Administration Protocol Propofol 1,000 mg in 100 mls @ 2.15 mls/hr 05/05/18 15:24 05/09/18 08:19 Diprivan IV 10 mcg/kg/min .Q24H PRN 4.3 mls/hr TITRATE PER MD ORDER Titration Protocol 5 MCG/KG/MIN Sodium Chloride 1,000 mls @ 100 mls/hr 05/06/18 20:42 05/06/18 20:30 Sodium Chloride 0.9% IV 100 mls/hr .Q10H ZARI Administration NOREPINEPHRINE BIT/0.9 % NACL 4 mg in 250 mls @ 15 mls/hr 05/08/18 17:16 05/10/18 08:24 Levophed 4 Mg/ 250 Ml Ns Premixed IV 2 mcg/min .[id number] PRN 7.5 mls/hr TITRATE PER MD ORDER Administration Protocol 4 MCG/MIN Amiodarone HCl/Dextrose 360 mg in 200 mls @ 16.667 mls/hr 05/09/18 00:00 05/11/18 05:15 Nexterone 360 Mg In D5w 200 Ml (Premix) IV Not Given .Q12H ZARI Protocol 0.5 MG/MIN Dexmedetomidine HCl 400 mcg in 100 mls @ 3.357 mls/hr 05/09/18 10:31 05/11/18 10:55 Precedex 400mcg/100ml IV 0.8 mcg/kg/hr .Q24H PRN 13.426 mls/hr Sedation Titration Protocol 0.2 MCG/KG/HR Dextrose 1,000 mls @ 0 mls/hr 05/09/18 10:48 Dextrose 5% In Water 1000 Ml IV .Q0M PRN Hypoglycemia Protocol Protocol Per Protocol Micafungin Sodium 100 mg/ 100 mls @ 100 mls/hr 05/10/18 13:15 05/11/18 09:17 Sodium Chloride IV 05/17/18 13:16 100 mls/hr DAILY ZARI Administration Protocol [id number] IVPB 100mg in NS 100 mls @ 10 mls/hr 05/11/18 08:12 05/11/18 13:16 Cardizem 100mg In Ns IV 5 mg/hr .Q10H PRN 5 mls/hr TITRATE PER MD ORDER Titration Protocol 10 MG/HR Furosemide 100 mg/ Dextrose 100 mls @ 1 mls/hr 05/11/18 10:00 05/11/18 10:35 IV 1 mls/hr .Q24H ZARI Administration Protocol 1 MG/HR Insulin Human Lispro 0 units 05/09/18 11:30 05/11/18 11:28 Humalog High SC 7 u ACHS ZARI Administration Protocol Levalbuterol HCl 0.63 mg 04/27/18 12:16 05/08/18 03:00 Xopenex IH 0.63 mg [id number] PRN Administration Shortness of Breath Levalbuterol HCl 0.63 mg 04/28/18 20:00 05/11/18 13:09 Xopenex IH 0.63 mg [id number] ZARI Administration Methylprednisolone 60 mg 05/11/18 10:01 05/11/18 10:23 Solu-Medrol IVP Not Given Q6H ZARI Morphine Sulfate 2 mg 05/06/18 12:03 05/11/18 08:08 Morphine IVP 2 mg Q4H PRN Administration Pain, severe (8-10) Nitroglycerin 0.5 ea 05/07/18 09:30 05/11/18 09:23 Nitro-Bid 2% Oint TOP 0.5 ea Q6H ZARI Administration Pantoprazole Sodium 40 mg 05/02/18 21:00 05/08/18 05:00 Protonix Ec Tab PO 40 mg 0600 ZARI Administration Pantoprazole Sodium 40 mg 05/09/18 10:00 05/11/18 09:21 Protonix Inj IVP 40 mg DAILY ZARI Administration Sotalol HCl 40 mg 05/09/18 10:00 05/11/18 09:16 Betapace PO Not Given BID ZARI Tramadol HCl 50 mg 05/04/18 09:27 05/05/18 04:09 Ultram PO 50 mg Q8H PRN Administration Pain, moderate (4-7) Verapamil HCl 40 mg 05/10/18 14:00 05/11/18 09:16 Calan Tab PO Not Given TID ZARI Verapamil HCl 2.5 mg 05/10/18 12:31 05/11/18 10:21 Verapamil Inj IVP 2.5 mg Q6 PRN Administration FOR HR GREATER THAN 130 - Patient Studies Lab Studies: Microbiology Studies 05/09/18 08:30 Blood Culture - Preliminary Blood-Venous NO GROWTH AFTER 48 HOURS 05/09/18 08:10 Blood Culture - Preliminary Blood-Venous NO GROWTH AFTER 48 HOURS 05/05/18 15:30 Blood Culture - Final Blood-Venous NO GROWTH AFTER 5 DAYS Gram Stain - Final TEST NOT PERFORMED 05/05/18 16:00 Blood Culture - Final Blood-Venous NO GROWTH AFTER 5 DAYS Gram Stain - Final TEST NOT PERFORMED Lab Studies 05/11/18 05/11/18 05/11/18 Range/Units 08:47 06:20 06:20 WBC 16.0 H D (4.5-11.0) 10^3/uL RBC 3.64 (3.5-6.1) 10^6/uL Hgb 10.4 L D (14.0-18.0) g/dL Hct 34.4 L (42.0-52.0) % MCV 94.5 (80.0-105.0) fl MCH 28.6 (25.0-35.0) pg MCHC 30.2 L (31.0-37.0) g/dl RDW 18.4 H (11.5-14.5) % Plt Count 93 L (120.0-450.0) 10^3/uL MPV 10.8 (7.0-11.0) fl Gran % 94.2 H (50.0-68.0) % Lymph % (Auto) 4.3 L (22.0-35.0) % [place] % (Auto) 1.4 (1.0-6.0) % Eos % (Auto) 0.0 L (1.5-5.0) % Baso % (Auto) 0.1 (0.0-3.0) % Gran # 15.09 H (1.4-6.5) Lymph # (Auto) 0.7 L (1.2-3.4) [place] # (Auto) 0.2 (0.1-0.6) Eos # (Auto) 0.0 (0.0-0.7) Baso # (Auto) 0.01 (0.0-2.0) K/mm3 Neutrophils % (Manual) 95 H (50.0-70.0) % Lymphocytes % (Manual) TEST NOT PERFORMED Monocytes % (Manual) 5 (1.0-6.0) % Platelet Evaluation Low (NORMAL) Large Platelets Present pCO2 (35-45) mm/Hg pO2 (80-100) mm/Hg HCO3 (21-28) mmol/L ABG pH (7.35-7.45) ABG Total CO2 (22-28) mmol.L ABG O2 Saturation (95-98) % ABG O2 Content (15-23) ML/dl ABG Base Excess (-2.0-3.0) mmol/L ABG Hemoglobin (11.7-17.4) g/dL ABG Carboxyhemoglobin (0.5-1.5) % POC ABG HHb (Measured) (0-5) % ABG Methemoglobin (0.0-3.0) % ABG O2 Capacity (16-24) mL/dl Hgb O2 Saturation (95.0-98.0) % FiO2 % Sodium 142 (132-148) mmol/L Potassium 4.2 (3.6-5.0) mmol/L Chloride 102 (98-107) mmol/L Carbon Dioxide 39 H (21-33) mmol/L Anion Gap 5 L (10-20) BUN 46 H (7-21) mg/dL Creatinine 0.8 (0.8-1.5) mg/dl Est GFR ( Amer) > 60 Est GFR (Non-Af Amer) > 60 POC Glucose (mg/dL) (65-110) mg/dL Random Glucose 220 H (70-110) mg/dL Calcium 8.0 L (8.4-10.5) mg/dL Phosphorus 2.9 (2.5-4.5) mg/dL Magnesium 2.4 H (1.7-2.2) mg/dL Total Bilirubin 0.5 (0.2-1.3) mg/dL AST 53 (17-59) U/L ALT 106 H (7-56) U/L Alkaline Phosphatase 168 H (38-126) U/L Total Protein 6.1 (5.8-8.3) g/dL Albumin 2.6 L (3.0-4.8) g/dL Globulin 3.5 gm/dL Albumin/Globulin Ratio 0.8 L (1.1-1.8) 05/11/18 05/10/18 05/10/18 Range/Units 04:00 22:07 16:05 WBC (4.5-11.0) 10^3/uL RBC (3.5-6.1) 10^6/uL Hgb (14.0-18.0) g/dL Hct (42.0-52.0) % MCV (80.0-105.0) fl MCH (25.0-35.0) pg MCHC (31.0-37.0) g/dl RDW (11.5-14.5) % Plt Count (120.0-450.0) 10^3/uL MPV (7.0-11.0) fl Gran % (50.0-68.0) % Lymph % (Auto) (22.0-35.0) % [place] % (Auto) (1.0-6.0) % Eos % (Auto) (1.5-5.0) % Baso % (Auto) (0.0-3.0) % Gran # (1.4-6.5) Lymph # (Auto) (1.2-3.4) [place] # (Auto) (0.1-0.6) Eos # (Auto) (0.0-0.7) Baso # (Auto) (0.0-2.0) K/mm3 Neutrophils % (Manual) (50.0-70.0) % Lymphocytes % (Manual) Monocytes % (Manual) (1.0-6.0) % Platelet Evaluation (NORMAL) Large Platelets pCO2 53 H (35-45) mm/Hg pO2 51.0 L (80-100) mm/Hg HCO3 39.5 H (21-28) mmol/L ABG pH 7.48 H (7.35-7.45) ABG Total CO2 41.1 H (22-28) mmol.L ABG O2 Saturation 91.7 L (95-98) % ABG O2 Content 12.6 L (15-23) ML/dl ABG Base Excess 14.1 H (-2.0-3.0) mmol/L ABG Hemoglobin 10.1 L (11.7-17.4) g/dL ABG Carboxyhemoglobin 2.9 H (0.5-1.5) % POC ABG HHb (Measured) 8.0 H (0-5) % ABG Methemoglobin 0.8 (0.0-3.0) % ABG O2 Capacity 13.7 L (16-24) mL/dl Hgb O2 Saturation 88.4 L (95.0-98.0) % FiO2 60.0 % Sodium (132-148) mmol/L Potassium (3.6-5.0) mmol/L Chloride (98-107) mmol/L Carbon Dioxide (21-33) mmol/L Anion Gap (10-20) BUN (7-21) mg/dL Creatinine (0.8-1.5) mg/dl Est GFR ( Amer) Est GFR (Non-Af Amer) POC Glucose (mg/dL) 197 H 154 H (65-110) mg/dL Random Glucose (70-110) mg/dL Calcium (8.4-10.5) mg/dL Phosphorus (2.5-4.5) mg/dL Magnesium (1.7-2.2) mg/dL Total Bilirubin (0.2-1.3) mg/dL AST (17-59) U/L ALT (7-56) U/L Alkaline Phosphatase (38-126) U/L Total Protein (5.8-8.3) g/dL Albumin (3.0-4.8) g/dL Globulin gm/dL Albumin/Globulin Ratio (1.1-1.8) 05/10/18 05/10/18 05/10/18 Range/Units 10:58 07:14 05:35 WBC (4.5-11.0) 10^3/uL RBC (3.5-6.1) 10^6/uL Hgb 7.3 L D (14.0-18.0) g/dL Hct (42.0-52.0) % MCV (80.0-105.0) fl MCH (25.0-35.0) pg MCHC (31.0-37.0) g/dl RDW (11.5-14.5) % Plt Count (120.0-450.0) 10^3/uL MPV (7.0-11.0) fl Gran % (50.0-68.0) % Lymph % (Auto) (22.0-35.0) % [place] % (Auto) (1.0-6.0) % Eos % (Auto) (1.5-5.0) % Baso % (Auto) (0.0-3.0) % Gran # (1.4-6.5) Lymph # (Auto) (1.2-3.4) [place] # (Auto) (0.1-0.6) Eos # (Auto) (0.0-0.7) Baso # (Auto) (0.0-2.0) K/mm3 Neutrophils % (Manual) (50.0-70.0) % Lymphocytes % (Manual) Monocytes % (Manual) (1.0-6.0) % Platelet Evaluation (NORMAL) Large Platelets pCO2 (35-45) mm/Hg pO2 (80-100) mm/Hg HCO3 (21-28) mmol/L ABG pH (7.35-7.45) ABG Total CO2 (22-28) mmol.L ABG O2 Saturation (95-98) % ABG O2 Content (15-23) ML/dl ABG Base Excess (-2.0-3.0) mmol/L ABG Hemoglobin (11.7-17.4) g/dL ABG Carboxyhemoglobin (0.5-1.5) % POC ABG HHb (Measured) (0-5) % ABG Methemoglobin (0.0-3.0) % ABG O2 Capacity (16-24) mL/dl Hgb O2 Saturation (95.0-98.0) % FiO2 % Sodium (132-148) mmol/L Potassium (3.6-5.0) mmol/L Chloride (98-107) mmol/L Carbon Dioxide (21-33) mmol/L Anion Gap (10-20) BUN (7-21) mg/dL Creatinine (0.8-1.5) mg/dl Est GFR ( Amer) Est GFR (Non-Af Amer) POC Glucose (mg/dL) 206 H 234 H (65-110) mg/dL Random Glucose (70-110) mg/dL Calcium (8.4-10.5) mg/dL Phosphorus (2.5-4.5) mg/dL Magnesium (1.7-2.2) mg/dL Total Bilirubin (0.2-1.3) mg/dL AST (17-59) U/L ALT (7-56) U/L Alkaline Phosphatase (38-126) U/L Total Protein (5.8-8.3) g/dL Albumin (3.0-4.8) g/dL Globulin gm/dL Albumin/Globulin Ratio (1.1-1.8) Laboratory Results - last 24 hr 05/10/18 05/10/18 05/10/18 05:35 07:14 10:58 WBC RBC Hgb 7.3 L D Hct MCV MCH MCHC RDW Plt Count MPV Gran % Lymph % (Auto) [place] % (Auto) Eos % (Auto) Baso % (Auto) Gran # Lymph # (Auto) [place] # (Auto) Eos # (Auto) Baso # (Auto) Neutrophils % (Manual) Lymphocytes % (Manual) Monocytes % (Manual) Platelet Evaluation Large Platelets pCO2 pO2 HCO3 ABG pH ABG Total CO2 ABG O2 Saturation ABG O2 Content ABG Base Excess ABG Hemoglobin ABG Carboxyhemoglobin POC ABG HHb (Measured) ABG Methemoglobin ABG O2 Capacity Hgb O2 Saturation FiO2 Sodium Potassium Chloride Carbon Dioxide Anion Gap BUN Creatinine Est GFR ( Amer) Est GFR (Non-Af Amer) POC Glucose (mg/dL) 234 H 206 H Random Glucose Calcium Phosphorus Magnesium Total Bilirubin AST ALT Alkaline Phosphatase Total Protein Albumin Globulin Albumin/Globulin Ratio 05/10/18 05/10/18 05/11/18 16:05 22:07 04:00 WBC RBC Hgb Hct MCV MCH MCHC RDW Plt Count MPV Gran % Lymph % (Auto) [place] % (Auto) Eos % (Auto) Baso % (Auto) Gran # Lymph # (Auto) [place] # (Auto) Eos # (Auto) Baso # (Auto) Neutrophils % (Manual) Lymphocytes % (Manual) Monocytes % (Manual) Platelet Evaluation Large Platelets pCO2 53 H pO2 51.0 L HCO3 39.5 H ABG pH 7.48 H ABG Total CO2 41.1 H ABG O2 Saturation 91.7 L ABG O2 Content 12.6 L ABG Base Excess 14.1 H ABG Hemoglobin 10.1 L ABG Carboxyhemoglobin 2.9 H POC ABG HHb (Measured) 8.0 H ABG Methemoglobin 0.8 ABG O2 Capacity 13.7 L Hgb O2 Saturation 88.4 L FiO2 60.0 Sodium Potassium Chloride Carbon Dioxide Anion Gap BUN Creatinine Est GFR ( Amer) Est GFR (Non-Af Amer) POC Glucose (mg/dL) 154 H 197 H Random Glucose Calcium Phosphorus Magnesium Total Bilirubin AST ALT Alkaline Phosphatase Total Protein Albumin Globulin Albumin/Globulin Ratio 05/11/18 05/11/18 05/11/18 06:20 06:20 08:47 WBC 16.0 H D RBC 3.64 Hgb 10.4 L D Hct 34.4 L MCV 94.5 MCH 28.6 MCHC 30.2 L RDW 18.4 H Plt Count 93 L MPV 10.8 Gran % 94.2 H Lymph % (Auto) 4.3 L [place] % (Auto) 1.4 Eos % (Auto) 0.0 L Baso % (Auto) 0.1 Gran # 15.09 H Lymph # (Auto) 0.7 L [place] # (Auto) 0.2 Eos # (Auto) 0.0 Baso # (Auto) 0.01 Neutrophils % (Manual) 95 H Lymphocytes % (Manual) TEST NOT PERFORMED Monocytes % (Manual) 5 Platelet Evaluation Low Large Platelets Present pCO2 pO2 HCO3 ABG pH ABG Total CO2 ABG O2 Saturation ABG O2 Content ABG Base Excess ABG Hemoglobin ABG Carboxyhemoglobin POC ABG HHb (Measured) ABG Methemoglobin ABG O2 Capacity Hgb O2 Saturation FiO2 Sodium 142 Potassium 4.2 Chloride 102 Carbon Dioxide 39 H Anion Gap 5 L BUN 46 H Creatinine 0.8 Est GFR ( Amer) > 60 Est GFR (Non-Af Amer) > 60 POC Glucose (mg/dL) Random Glucose 220 H Calcium 8.0 L Phosphorus 2.9 Magnesium 2.4 H Total Bilirubin 0.5 AST 53 ALT 106 H Alkaline Phosphatase 168 H Total Protein 6.1 Albumin 2.6 L Globulin 3.5 Albumin/Globulin Ratio 0.8 L Radiology Impressions: Radiology Impressions Head CT 05/10/18 14:50 IMPRESSION: No acute intracranial findings Chest X-Ray 05/11/18 06:48 IMPRESSION: Bilateral infiltrates showing improvement from prior study. Endotracheal and nasogastric tubes in satisfactory position Chest X-Ray 05/11/18 07:00 IMPRESSION: Increasing bilateral infiltrates are seen. The pattern could represent pulmonary edema or pneumonia. Critical Care Progress Note - Nutrition Nutrition: Nutrition Category Date Time Status NPO Diet [DIET] Diets 05/06/18 Breakfast Ordered Attending/Attestation - Attestation I have personally seen and examined this patient.: Yes I have fully participated in the care of the patient.: Yes I have reviewed all pertinent clinical information: Yes Notes (Text): 05/11/18 15:31 77 yo male with advanced small cell lung CA, now with hypoxemic respirator failure, in the setting of non-cardiogenic pulmonary edema, ARDS? of unclear etiology, cant rule out pneumonitis due to PDL-1 inhibitor. CXR worsening-->discussed with Dr. Yi: will increase steroids due to possibility of pneumonitis 2/2 to PDL-1 inhibitor. on broad spectrum abx, including antifungal. will aggressively diurese as hemodynamics allows, control HR, protective lung vent strategy, conservative fluid and 02 management, HOB>35, oral hygiene. only on precedex and prn morphije for pain. Prognosis is poor ccm time 40 min
[2018-05-11] MEDS: Dexmedetomidine 400mcg/100mL 400 MCG/100 ML BOTTLE IV PRN ×2 (08:45→23:12)
[2018-05-11] MEDS: diltiaZEM IVPB 100mg in NS 100 ML IV PRN ×2 (08:49→16:16)
[2018-05-11] MEDS: Micafungin 100 MG in Sodium Chloride 0.9% 100 ML IV SCH (09:17)
[2018-05-11] MEDS: MethylPREDNISolone 40 mg Vial IVP SCH ×4 (09:21→21:49)
[2018-05-11] MEDS: Enoxaparin 60 mg Syringe SC SCH ×2 (09:23→21:49)
--- NOTE | 2018-05-11 09:30 | CT ---
Date of service: 05/10/2018 PROCEDURE: CT HEAD WITHOUT CONTRAST. HISTORY: CVA COMPARISON: 11/09/2017 TECHNIQUE: Axial computed tomography images were obtained through the head/brain without intravenous contrast. Radiation dose: Total exam DLP = 930.89 mGy-cm. This CT exam was performed using one or more of the following dose reduction techniques: Automated exposure control, adjustment of the mA and/or kV according to patient size, and/or use of iterative reconstruction technique. FINDINGS: HEMORRHAGE: No intracranial hemorrhage. BRAIN: No mass effect or edema. Moderate atrophy. Chronic microvascular changes VENTRICLES: Unremarkable. No hydrocephalus. CALVARIUM: Unremarkable. PARANASAL SINUSES: Unremarkable as visualized. No significant inflammatory changes. MASTOID AIR CELLS: Unremarkable as visualized. No inflammatory changes. OTHER FINDINGS: The report concurs with the preliminary [facility] report IMPRESSION: No acute intracranial findings
--- NOTE | 2018-05-11 09:50 | RAD ---
Date of service: 05/11/2018 HISTORY: placement of ET tube COMPARISON: No prior. FINDINGS: LUNGS: Bilateral infiltrates showing improvement from prior study. Endotracheal and nasogastric tubes in satisfactory position PLEURA: No significant pleural effusion identified, no pneumothorax apparent. CARDIOVASCULAR: No aortic atherosclerotic calcification present. Normal cardiac size. No pulmonary vascular congestion. OSSEOUS STRUCTURES: No significant abnormalities. VISUALIZED UPPER ABDOMEN: Normal. OTHER FINDINGS: None. IMPRESSION: Bilateral infiltrates showing improvement from prior study. Endotracheal and nasogastric tubes in satisfactory position
[2018-05-11] MEDS ORDERED: Furosemide 100 MG in Dextrose 5% In Water 90 ML IV SCH (10:00)
--- NOTE | 2018-05-11 10:18 | RAD ---
Date of service: 05/11/2018 HISTORY: follow up infiltrate COMPARISON: 05/10/2018 FINDINGS: LUNGS: Increasing bilateral infiltrates are seen. The pattern could represent pulmonary edema or pneumonia. PLEURA: No significant pleural effusion identified, no pneumothorax apparent. CARDIOVASCULAR: No aortic atherosclerotic calcification present. Mild cardiomegaly OSSEOUS STRUCTURES: No significant abnormalities. VISUALIZED UPPER ABDOMEN: Normal. OTHER FINDINGS: Endotracheal and nasogastric tubes in satisfactory position IMPRESSION: Increasing bilateral infiltrates are seen. The pattern could represent pulmonary edema or pneumonia.
--- NOTE | 2018-05-11 12:45 | CP.PCM.PN ---
Subjective - Date & Time of Evaluation Date of Evaluation: 05/11/18 Time of Evaluation: 11:40 - Subjective Subjective: Still on the ventilator, still with fevers, tachycardic and still in some distress. Objective - Vital Signs/Intake and Output Vital Signs (last 24 hours): Temp Pulse Resp BP Pulse Ox 97.5 F L 76 35 H 99/58 L 96 05/10/18 12:04 05/10/18 12:04 05/10/18 07:40 05/10/18 12:04 05/10/18 12:04 Intake and Output: 05/10/18 05/10/18 06:59 18:59 Intake Total 1528.8 250 Output Total 1700 Balance -171.2 250 - Medications Medications: Current Medications Acetaminophen (Tylenol 325mg Tab) 650 mg PO Q6H PRN PRN Reason: Pain, Mild (1-3) Last Admin: 05/09/18 21:38 Dose: 650 mg Apixaban (Eliquis) 5 mg PO BID COUNT INCLUDES THE [facility]; Protocol Last Admin: 05/06/18 18:44 Dose: 5 mg Aspirin (Aspirin Supp) 300 mg RC DAILY COUNT INCLUDES THE [facility] Last Admin: 05/10/18 09:44 Dose: 300 mg Benzonatate (Tessalon Perles) 100 mg PO TID PRN PRN Reason: Cough Last Admin: 05/05/18 04:09 Dose: 100 mg Budesonide (Pulmicort Respules) 0.5 mg IH [id number] COUNT INCLUDES THE [facility] Last Admin: 05/10/18 07:32 Dose: 0.5 mg Dextrose (Dextrose 50% Inj) 0 ml IV STAT PRN; Protocol PRN Reason: Hypoglycemia Protocol Digoxin (Lanoxin) 0.25 mg IVP ONCE ONE Stop: 05/10/18 15:01 Diltiazem HCl (Cardizem Cd) 120 mg PO DAILY COUNT INCLUDES THE [facility] Last Admin: 05/07/18 11:16 Dose: Not Given Enoxaparin Sodium (Lovenox) 60 mg SC Q12H COUNT INCLUDES THE [facility]; Protocol Last Admin: 05/10/18 09:45 Dose: 60 mg Furosemide (Lasix) 40 mg IV BID COUNT INCLUDES THE [facility] Last Admin: 05/10/18 09:43 Dose: 40 mg Guaifenesin/Dextromethorphan (Robitussin Dm) 5 ml PO Q4H PRN PRN Reason: Cough Last Admin: 05/05/18 04:09 Dose: 5 ml Meropenem (Merrem Iv 1 Gm Premix) 1 gm in 50 mls @ 100 mls/hr IVPB Q8 ZARI; Protocol Last Admin: 05/10/18 05:21 Dose: 100 mls/hr Vancomycin HCl (Vancomycin 1gm) 1 gm in 250 mls @ 167 mls/hr IVPB Q12H ZARI; Protocol Last Admin: 05/10/18 03:00 Dose: 167 mls/hr Propofol (Diprivan) 1,000 mg in 100 mls @ 2.15 mls/hr IV .Q24H PRN; Protocol PRN Reason: TITRATE PER MD ORDER Last Titration: 05/09/18 08:19 Dose: 10 mcg/kg/min, 4.3 mls/hr Sodium Chloride (Sodium Chloride 0.9%) 1,000 mls @ 100 mls/hr IV .Q10H ZARI Last Admin: 05/06/18 20:30 Dose: 100 mls/hr NOREPINEPHRINE BIT/0.9 % NACL (Levophed 4 Mg/ 250 Ml Ns Premixed) 4 mg in 250 mls @ 15 mls/hr IV [id number] PRN; Protocol PRN Reason: TITRATE PER MD ORDER Last Admin: 05/10/18 08:24 Dose: 2 mcg/min, 7.5 mls/hr Amiodarone HCl/Dextrose (Nexterone 360 Mg In D5w 200 Ml (Premix)) 360 mg in 200 mls @ 16.667 mls/hr IV .Q12H ZARI; Protocol Last Admin: 05/10/18 01:29 Dose: Not Given Dexmedetomidine HCl (Precedex 400mcg/100ml) 400 mcg in 100 mls @ 3.357 mls/hr IV .Q24H PRN; Protocol PRN Reason: Sedation Last Titration: 05/10/18 06:28 Dose: 0.7 mcg/kg/hr, 11.748 mls/hr Dextrose (Dextrose 5% In Water 1000 Ml) 1,000 mls @ 0 mls/hr IV .Q0M PRN; Protocol PRN Reason: Hypoglycemia Protocol Insulin Human Lispro (Humalog High) 0 units SC ACHS ZARI; Protocol Last Admin: 05/10/18 11:52 Dose: 4 u Levalbuterol HCl (Xopenex) 0.63 mg IH [id number] PRN PRN Reason: Shortness of Breath Last Admin: 05/08/18 03:00 Dose: 0.63 mg Levalbuterol HCl (Xopenex) 0.63 mg IH TIDRESP COUNT INCLUDES THE [facility] Last Admin: 05/10/18 07:32 Dose: 0.63 mg Methylprednisolone (Solu-Medrol) 40 mg IVP Q12 COUNT INCLUDES THE [facility] Last Admin: 05/10/18 09:46 Dose: 40 mg Morphine Sulfate (Morphine) 2 mg IVP Q4H PRN PRN Reason: Pain, severe (8-10) Last Admin: 05/10/18 05:21 Dose: 2 mg Nitroglycerin (Nitro-Bid 2% Oint) 0.5 ea TOP Q6H COUNT INCLUDES THE [facility] Last Admin: 05/10/18 05:22 Dose: Not Given Pantoprazole Sodium (Protonix Ec Tab) 40 mg PO 0600 COUNT INCLUDES THE [facility] Last Admin: 05/08/18 05:00 Dose: 40 mg Pantoprazole Sodium (Protonix Inj) 40 mg IVP DAILY COUNT INCLUDES THE [facility] Last Admin: 05/10/18 09:46 Dose: 40 mg Sotalol HCl (Betapace) 40 mg PO BID COUNT INCLUDES THE [facility] Last Admin: 05/10/18 09:44 Dose: 40 mg Tramadol HCl (Ultram) 50 mg PO Q8H PRN PRN Reason: Pain, moderate (4-7) Last Admin: 05/05/18 04:09 Dose: 50 mg Verapamil HCl (Calan Tab) 40 mg PO TID COUNT INCLUDES THE [facility] Verapamil HCl (Verapamil Inj) 2.5 mg IVP Q6 PRN PRN Reason: FOR HR GREATER THAN 130 - Labs Labs: 05/10/18 05:35 05/10/18 07:18 PT 25.7 SECONDS (9.4-12.5) H 05/07/18 06:30 INR 2.20 05/07/18 06:30 APTT 25.5 Seconds (25.1-36.5) 05/07/18 06:30 - Constitutional Appears: Chronically Ill, Other (intubated, sedated) - Head Exam Head Exam: NORMAL INSPECTION - ENT Exam Additional comments: ET tube in place - Respiratory Exam Respiratory Exam: Decreased Breath Sounds - Cardiovascular Exam Cardiovascular Exam: +S1, +S2 - GI/Abdominal Exam GI & Abdominal Exam: Soft. absent: Tenderness Assessment and Plan - Assessment and Plan (Free Text) Plan: Assessment new onset hypoxic respiratory failure, with VDRF, with SIRS, R/O severe sepsis from hospital-acquired pneumonia on top of worsening lung cancer; new onset fever R/O Influenza S/P sepsis due to multifocal HCAP in this patient with stage 4 lung cancer, S/P confusion consider toxic-metabolic encephalopathy small cell lung cancer stage 4 on radiation and chemotherapy COPD atrial fibrillation gastritis Plan continue Vancomycin and Merrem day 6, added Mycamine pending final blood cx results and continue Tamiflu day 3 ;repeat blood cx are overall prognosis is poor
--- NOTE | 2018-05-11 13:05 | PN ---
DATE: 05/11/2018 PULMONARY CRITICAL CARE PROGRESS NOTE REFERRING PHYSICIAN: Dr. Briggs. SUBJECTIVE: Patient intubated, sedated, no acute events noted overnight. No hemoptysis, hemostasis, hematuria, diarrhea, or leg swelling reported. OBJECTIVE: GENERAL: Intubated, sedated. VITAL SIGNS: Blood pressure 90/59, pulse 85, temperature 100.5 and oxygen saturation 94%. HEENT: Nasogastric tube in place. Endotracheal tube in place. NECK: Supple. No JVD. RESPIRATORY: Diminished breath sounds, fair airflow. CARDIOVASCULAR: . ABDOMEN: Soft. No distention. No organomegaly. EXTREMITIES: No bilateral lower extremity edema. NEUROLOGIC: Intubated and sedated. MEDICATIONS: Tylenol 650 mg every 6 hours p.r.n,, Tylenol 650 mg rectally every 6 hours p.r.n. from fever, amiodarone/dextrose 360 mg in 200 mL every 12 hours, aspirin 300 mg rectally daily, Tessalon Perles 100 mg three times a day p.r.n., Pulmicort 3.5 mg every 12 hours, Precedex 400 mcg every daily p.r.n,, Cardizem 120 mg daily, Lovenox 60 mg subcutaneous every 12 hours, Lasix 100 mg every 24 hours 1 mg per hour, Robitussin 5 mL every 4 hours p.r.n., Humalog siding scale a.c. and at bedtime, Xopenex 3.60 mg inhalation every 6 hours p.r.n., Xopenex 0.60 mg inhalation 3 times a day, meropenem one g every 8 hours, Solu-Medrol 60 mg every hours, micafungin 100 mg daily, morphine 2 mg every 4 hours p.r.n., nitroglycerin topically every 6 hours, Levophed p.r.n., Protonix 40 mg daily, Protonix, propofol p.r.n. sotalol 40 mg twice a day, tramadol 50 mg every 8 hours p.r.n., vancomycin 1 g every 12 hours, verapamil 2.5 mg IV push every 6 hours p.r.n., verapamil 40 mg three times a day. LABORATORY DATA: Reviewed; WBC 16, RBC 3.64, hemoglobin 10.4, hematocrit 34.4, platelets 93, PCO2 53, PO2 51, HCO3 39.5, AVGP is 7.48. Sodium 142, potassium 4.2, chloride 102, carbon dioxide 39, anion gap 5, BUN 46, creatinine 0.8, GFR greater than 60, random glucose 220, calcium 8, phosphorous 2.9, magnesium 2.4, total bilirubin 0.5, AST 53, ALT 106, alkaline phosphatase 169, total protein 6.1, albumin 2.6, globulin 3.5, albumin globulin ratio 0.8. Blood cultures preliminary, no growth after 48-hours. Chest x-ray shows increasing bilateral infiltrates, pattern could represent pulmonary edema, pneumonia. IMPRESSION AND PLAN: small cell lung cancer, requiring radiation and chemotherapy in the past, chronic obstructive lung disease, paroxysmal atrial fibrillation, respiratory failure on ventilator, cardiac infarction, healthcare associated pneumonia, failure to thrive, sepsis. Dr. Yi discussed the case with insulation power unit tender to start high dose post steroids, monitor for response, monitor for immunological response suspected patient may have pneumonitis, which may have been caused by therapy. The patient was on oral cancer. There is no response to high dose post steroids, we will speak with family regarding further care. Continue present med settings, oxygen saturation 92 greater. Continue inhaled bronchodilators, antibiotic therapy. We will repeat ABG' chest x-rays, labs in the morning. Critical care time spent more than 35 minutes. This patient was seen and examined with Dr. Yi. Discussed assessment and plan as described above. Thank you for this consult. We will follow with you. Juan Carlos Paul APN Aura Yi MD
--- NOTE | 2018-05-11 13:37 | PN ---
DATE: 05/11/2018 REASON FOR CONSULTATION: Followup status post respiratory failure, elevated troponin, non-ST segment myocardial infarction, history of lung CA with metastasis, AFib with rapid ventricular rate. SUBJECTIVE: The patient remained on vent. OBJECTIVE: VITAL SIGNS: Heart rate 150, blood pressure 130/80, fever of 100.2. HEENT: PERRLA. Extraocular muscles intact. NECK: Supple. No carotid bruits. No thyromegaly. CHEST: Clear to auscultation. HEART: S1, S2, regular. ABDOMEN: Soft. EXTREMITIES: Clubbing, cyanosis negative. LABORATORY DATA: Blood workup: WBC 16, hemoglobin 10.2, hematocrit 34.4, platelets 93. Chemistry shows sodium 140, potassium 4.2, chloride 102, carbon dioxide 30, anion gap of 5, BUN of 46, and creatinine 0.8. IMPRESSION: A 77-year-old male with a past medical history significant for lung carcinoma with metastasis, admitted to the floor with failure to thrive, went into respiratory distress, intubated. Now, the patient has atrial fibrillation with rapid ventricular rate. Initially, the patient was hypotensive, was on Levophed, now off Levophed. RECOMMENDATION: We will start Cardizem drip 10 mg intravenous push followed by 10 mL an hour, hold verapamil, hold sotalol. We will control the heart rate. Continue vent management, the patient is currently on propofol and sedation. Overall, the patient's condition is critical. Long-term prognosis is guarded. Code status is still full code. Consider do not resuscitate/do not intubate. We will follow with you. Continue antibiotics. Thank you Dr. Bullard for providing us the opportunity in taking care of the patient, Salvador Alvarenga. Aura Orozco MD
--- NOTE | 2018-05-11 14:28 | PCM.EEG ---
Electroencephalogram Report - Electroencephalogram Report Procedure Date: 05/10/18 Medication: ASA, [place], Sotalol, Propofol Interpretation: a. Technical Information: This was a 16-channel EEG, 1-channel EKG routine EEG performed using [employer] equipment. Electrodes were applied using the 10/20 international placement system. Start; 17;08 End; 17;53 Total 49 minutes Clinical Information: Alter mental status. EEG Details During the entire study was not discernible awake EEG architecture, the tracing showed a monotonous diffuse bilateral attenuation with frequencies in the 4 to 5 Hz., there was no reactivity of the EEG. There was no reactivity of the EEG to stimulation. There was excess beta activity seen. Drowsiness not seen, sleep not seen. Hyperventilation was not performed. Photic stimulation was not performed. 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 No seizures. Patient is not in status epilepticus.
[2018-05-11 17:27] LABS: BLOOD UREA NITROGEN 56 mg/dL (7-21); CALCIUM 7.7 mg/dL (8.4-10.5); GFR NON-AFRICAN AMERICAN > 60
--- NOTE | 2018-05-11 18:07 | RAD ---
Date of service: 05/11/2018 HISTORY: evaluate congestion COMPARISON: Chest radiograph performed approximately 13 hours prior. FINDINGS: LUNGS: Patchy bilateral infiltrates. PLEURA: No significant pleural effusion identified, no pneumothorax apparent. CARDIOVASCULAR: Aortic atherosclerotic calcifications. Cardiomediastinal silhouette stably enlarged. OSSEOUS STRUCTURES: Unchanged. VISUALIZED UPPER ABDOMEN: Normal. OTHER FINDINGS: Endotracheal and enteric tubes, unchanged. Right internal jugular access chest port, unchanged. IMPRESSION: Stable appearance of bilateral infiltrates.
[2018-05-11] MEDS ORDERED: Potassium Chloride 40 mEq/30 ml LIQ UD PO ONE (19:00)
[2018-05-11] MEDS: Furosemide 100 MG in Dextrose 5% In Water 90 ML IV SCH (19:17)
[2018-05-12] MEDS: Vancomycin 1gm in NS 250ml 1 GM/250 ML BAG IVPB SCH ×2 (03:29→15:56)
[2018-05-12] MEDS: Nitroglycerin 2% Ointment Foilpak UD TOP SCH ×4 (03:47→21:30)
[2018-05-12] MEDS: Dexmedetomidine 400mcg/100mL 400 MCG/100 ML BOTTLE IV PRN ×3 (03:59→18:34)
[2018-05-12 05:20] LABS: ALB/GLOB RATIO 0.7 (1.1-1.8); ALBUMIN 2.1 g/dL (3.0-4.8); ALT/SGPT 82 U/L (7-56); AST/SGOT 30 U/L (17-59); BLOOD UREA NITROGEN 58 mg/dL (7-21); CALCIUM 7.5 mg/dL (8.4-10.5); GFR NON-AFRICAN AMERICAN > 60
[2018-05-12 05:21] LABS: BASO # 0.01 K/mm3 (0.0-2.0); BASO % 0.1 % (0.0-3.0); HEMOGLOBIN 8.7 g/dL (14.0-18.0); LYMPH # 0.6 (1.2-3.4); LYMPH % 5.1 % (22.0-35.0); MEAN CELL VOLUME 96.1 fl (80.0-105.0); MEAN CORPUSCULAR HEMOGLOBIN 28.2 pg (25.0-35.0); MEAN CORPUSCULAR HGB CONC 29.3 g/dl (31.0-37.0); MEAN PLATELET VOLUME 12.1 fl (7.0-11.0); MONO # 0.3 (0.1-0.6); MONO % 2.5 % (1.0-6.0); RBC 3.09 10^6/uL (3.5-6.1); RED CELL DISTRIBUTION WIDTH 18.6 % (11.5-14.5)
[2018-05-12] MEDS: Meropenem IV 1 gm in NS 1 GM/50 ML BAG IVPB SCH ×3 (05:26→21:28)
[2018-05-12] MEDS: MethylPREDNISolone 40 mg Vial IVP SCH ×4 (05:28→21:28)
[2018-05-12 06:23] LABS: ARTERIAL BLOOD GAS HCO3 39.5 mmol/L (21-28); ARTERIAL BLOOD GAS HEMOGLOBIN 9.4 g/dL (11.7-17.4); ARTERIAL BLOOD GAS O2 CAPACITY 12.8 mL/dl (16-24); ARTERIAL BLOOD GAS O2 CONTENT 11.3 ML/dl (15-23); ARTERIAL BLOOD GAS O2 SAT 88.2 % (95-98); ARTERIAL BLOOD GAS PCO2 53 mm/Hg (35-45); ARTERIAL BLOOD GAS PH 7.48 (7.35-7.45); ARTERIAL BLOOD GAS TCO2 41.1 mmol.L (22-28)
[2018-05-12] MEDS: Levalbuterol 0.63 MG/3 ML Inhal Soln UD IH SCH ×3 (07:55→19:48)
[2018-05-12] MEDS: Budesonide 0.5 mg/2 ml Inhal Susp UD IH SCH ×2 (07:55→19:48)
--- NOTE | 2018-05-12 08:28 | CP.CCUPN ---
<Ayanna Tomas - Last Filed: 05/12/18 11:57> CCU Subjective - Physician Review Subjective (Free Text): 05/12/18 08:22 Ayanna Tomas PGY1 Critical Care Progress Note Patient seen and examined at bedside this morning. Hypoxic in the 70%'s at 4am today, ET tube repositioned and now Os sat is 100%. HR controlled at 70-80 over the last 12 hours. Currently on the following drips: cardizem 5mg/hr, precedex, lasix 2mg/hr. Remains sedated and intubated with vent settings of 60/12/18/400. 12 point ROS limited due to patient status. CCU Objective - Vital Signs / Intake & Output Vital Signs (Last 4 hours): Vital Signs Pulse 05/12/18 05:54 74 Intake and Output (Last 8hrs): Intake & Output 05/11/18 05/12/18 05/12/18 22:59 06:59 14:59 Intake Total 1998 1234 Output Total 1200 650 Balance 798 584 Weight 156 lb Intake: IV 878 674 Precedex 148 148 antibiotics 500 350 cardizem 115 60 lasix 8 16 Tube Feeding 720 560 Other 400 Output: Urine 1200 650 Urethral (Epstein) 1200 650 Emesis 0 Oral Regurgitation 0 Other 0 Other: # Bowel Movements 1 1 - Physical Exam Head: Positive for: Atraumatic, Normocephalic Pupils: Positive for: PERRL Extroacular Muscles: Positive for: EOMI Conjunctiva: Positive for: Normal Mouth: Positive for: Moist Mucous Membranes Neck: Positive for: Normal Range of Motion Respiratory/Chest: Positive for: Respiratory Distress, Wheezes, Rales, Other (currently on ventilator). Negative for: Accessory Muscle Use Cardiovascular: Positive for: Normal S1, S2, Irregular Rhythm. Negative for: Murmurs Abdomen: Negative for: Tenderness, Distention, Peritoneal Signs Back: Positive for: Normal Inspection Upper Extremity: Positive for: Normal Inspection. Negative for: Cyanosis, Edema Lower Extremity: Positive for: Normal Inspection. Negative for: Edema Neurological: Positive for: CN II-XII Intact, Other (intubated) Skin: Positive for: Warm, Dry, Normal Color, Other (R IJ central port noted). Negative for: Rashes - Medications Active Medications: Active Medications Generic Name Dose Route Start Last Admin Trade Name Freq PRN Reason Stop Dose Admin Acetaminophen 650 mg 05/04/18 09:27 05/11/18 09:21 Tylenol 325mg Tab PO 650 mg Q6H PRN Administration Pain, Mild (1-3) Acetaminophen 650 mg 05/10/18 20:29 05/10/18 20:55 Tylenol 650 Mg Supp RC 650 mg Q6H PRN Administration Fever >100.4 F Aspirin 300 mg 05/08/18 10:00 05/11/18 09:27 Aspirin Supp RC 300 mg DAILY ZARI Administration Budesonide 0.5 mg 04/27/18 20:00 05/12/18 07:55 Pulmicort Respules IH 0.5 mg [id number] ZARI Administration Dextrose 0 ml 05/09/18 10:48 Dextrose 50% Inj IV STAT PRN Hypoglycemia Protocol Protocol Diltiazem HCl 120 mg 04/27/18 10:00 05/07/18 11:16 Cardizem Cd PO Not Given DAILY ZARI Enoxaparin Sodium 60 mg 05/07/18 10:15 05/11/18 21:49 Lovenox SC 60 mg Q12H ZARI Administration Protocol Meropenem 1 gm in 50 mls @ 100 mls/hr 05/05/18 15:15 05/12/18 05:26 Merrem Iv 1 Gm Premix IVPB 100 mls/hr Q8 ZARI Administration Protocol Vancomycin HCl 1 gm in 250 mls @ 167 mls/hr 05/05/18 15:15 05/12/18 03:29 Vancomycin 1gm IVPB 167 mls/hr Q12H ZARI Administration Protocol Propofol 1,000 mg in 100 mls @ 2.15 mls/hr 05/05/18 15:24 05/09/18 08:19 Diprivan IV 10 mcg/kg/min .Q24H PRN 4.3 mls/hr TITRATE PER MD ORDER Titration Protocol 5 MCG/KG/MIN Sodium Chloride 1,000 mls @ 100 mls/hr 05/06/18 20:42 05/06/18 20:30 Sodium Chloride 0.9% IV 100 mls/hr .Q10H ZARI Administration NOREPINEPHRINE BIT/0.9 % NACL 4 mg in 250 mls @ 15 mls/hr 05/08/18 17:16 05/10/18 08:24 Levophed 4 Mg/ 250 Ml Ns Premixed IV 2 mcg/min .[id number] PRN 7.5 mls/hr TITRATE PER MD ORDER Administration Protocol 4 MCG/MIN Amiodarone HCl/Dextrose 360 mg in 200 mls @ 16.667 mls/hr 05/09/18 00:00 05/11/18 05:15 Nexterone 360 Mg In D5w 200 Ml (Premix) IV Not Given .Q12H ZARI Protocol 0.5 MG/MIN Dexmedetomidine HCl 400 mcg in 100 mls @ 3.357 mls/hr 05/09/18 10:31 05/12/18 03:59 Precedex 400mcg/100ml IV 0.8 mcg/kg/hr .Q24H PRN 13.426 mls/hr Sedation Administration Protocol 0.2 MCG/KG/HR Dextrose 1,000 mls @ 0 mls/hr 05/09/18 10:48 Dextrose 5% In Water 1000 Ml IV .Q0M PRN Hypoglycemia Protocol Protocol Per Protocol Micafungin Sodium 100 mg/ 100 mls @ 100 mls/hr 05/10/18 13:15 05/11/18 09:17 Sodium Chloride IV 05/17/18 13:16 100 mls/hr DAILY ZARI Administration Protocol diltiaZEM IVPB 100mg in NS 100 mls @ 10 mls/hr 05/11/18 08:12 05/11/18 16:16 Cardizem 100mg In Ns IV 5 mg/hr .Q10H PRN 5 mls/hr TITRATE PER MD ORDER Administration Protocol 10 MG/HR Furosemide 100 mg/ Dextrose 100 mls @ 2 mls/hr 05/11/18 19:06 05/11/18 19:17 IV 2 mls/hr .Q24H ZARI Administration Protocol 2 MG/HR Insulin Human Lispro 0 units 05/09/18 11:30 05/11/18 21:48 Humalog High SC 7 u ACHS ZARI Administration Protocol Levalbuterol HCl 0.63 mg 04/27/18 12:16 05/08/18 03:00 Xopenex IH 0.63 mg [id number] PRN Administration Shortness of Breath Levalbuterol HCl 0.63 mg 04/28/18 20:00 05/12/18 07:55 Xopenex IH 0.63 mg TIDRESP ZARI Administration Methylprednisolone 60 mg 05/11/18 10:01 05/12/18 05:28 Solu-Medrol IVP 60 mg Q6H ZARI Administration Morphine Sulfate 2 mg 05/06/18 12:03 05/11/18 08:08 Morphine IVP 2 mg Q4H PRN Administration Pain, severe (8-10) Nitroglycerin 0.5 ea 05/07/18 09:30 05/12/18 03:47 Nitro-Bid 2% Oint TOP Not Given Q6H [facility] Pantoprazole Sodium 40 mg 05/02/18 21:00 05/08/18 05:00 Protonix Ec Tab PO 40 mg 0600 ZARI Administration Pantoprazole Sodium 40 mg 05/09/18 10:00 05/11/18 09:21 Protonix Inj IVP 40 mg DAILY [facility] Administration Sotalol HCl 40 mg 05/09/18 10:00 05/11/18 09:16 Betapace PO Not Given BID [facility] Tramadol HCl 50 mg 05/04/18 09:27 05/05/18 04:09 Ultram PO 50 mg Q8H PRN Administration Pain, moderate (4-7) Verapamil HCl 40 mg 05/10/18 14:00 05/11/18 09:16 Calan Tab PO Not Given TID [facility] Verapamil HCl 2.5 mg 05/10/18 12:31 05/11/18 10:21 Verapamil Inj IVP 2.5 mg Q6 PRN Administration FOR HR GREATER THAN 130 - Patient Studies Lab Studies: Microbiology Studies 05/09/18 08:30 Blood Culture - Preliminary Blood-Venous NO GROWTH AFTER 48 HOURS 05/09/18 08:10 Blood Culture - Preliminary Blood-Venous NO GROWTH AFTER 48 HOURS Lab Studies 05/12/18 05/12/18 05/12/18 Range/Units 06:15 04:45 04:45 WBC 11.0 D (4.5-11.0) 10^3/uL RBC 3.09 L (3.5-6.1) 10^6/uL Hgb 8.7 L (14.0-18.0) g/dL Hct 29.7 L (42.0-52.0) % MCV 96.1 (80.0-105.0) fl MCH 28.2 (25.0-35.0) pg MCHC 29.3 L (31.0-37.0) g/dl RDW 18.6 H (11.5-14.5) % Plt Count 94 L (120.0-450.0) 10^3/uL MPV 12.1 H (7.0-11.0) fl Neut % (Auto) 92.3 H (50.0-68.0) % Lymph % (Auto) 5.1 L (22.0-35.0) % [place] % (Auto) 2.5 (1.0-6.0) % Eos % (Auto) 0.0 L (1.5-5.0) % Baso % (Auto) 0.1 (0.0-3.0) % Lymph # (Auto) 0.6 L (1.2-3.4) [place] # (Auto) 0.3 (0.1-0.6) Eos # (Auto) 0.0 (0.0-0.7) Baso # (Auto) 0.01 (0.0-2.0) K/mm3 Absolute Neuts (auto) 10.18 H (1.4-6.5) pCO2 53 H (35-45) mm/Hg pO2 50.0 L (80-100) mm/Hg HCO3 39.5 H (21-28) mmol/L ABG pH 7.48 H (7.35-7.45) ABG Total CO2 41.1 H (22-28) mmol.L ABG O2 Saturation 88.2 L (95-98) % ABG O2 Content 11.3 L (15-23) ML/dl ABG Base Excess 14.2 H (-2.0-3.0) mmol/L ABG Hemoglobin 9.4 L (11.7-17.4) g/dL ABG Carboxyhemoglobin 2.8 H (0.5-1.5) % POC ABG HHb (Measured) 11.4 H (0-5) % ABG Methemoglobin 1.0 (0.0-3.0) % ABG O2 Capacity 12.8 L (16-24) mL/dl Hgb O2 Saturation 84.9 L (95.0-98.0) % FiO2 50.0 % Sodium 146 (132-148) mmol/L Potassium 4.5 (3.6-5.0) mmol/L Chloride 105 (98-107) mmol/L Carbon Dioxide 41 H (21-33) mmol/L Anion Gap 5 L (10-20) BUN 58 H (7-21) mg/dL Creatinine 0.7 L (0.8-1.5) mg/dl Est GFR ( Amer) > 60 Est GFR (Non-Af Amer) > 60 POC Glucose (mg/dL) (65-110) mg/dL Random Glucose 175 H (70-110) mg/dL Calcium 7.5 L (8.4-10.5) mg/dL Phosphorus (2.5-4.5) mg/dL Magnesium (1.7-2.2) mg/dL Total Bilirubin 0.3 (0.2-1.3) mg/dL AST 30 (17-59) U/L ALT 82 H (7-56) U/L Alkaline Phosphatase 119 (38-126) U/L Total Protein 4.9 L (5.8-8.3) g/dL Albumin 2.1 L (3.0-4.8) g/dL Globulin 2.8 gm/dL Albumin/Globulin Ratio 0.7 L (1.1-1.8) 05/11/18 05/11/18 05/11/18 Range/Units 16:46 11:25 08:47 WBC (4.5-11.0) 10^3/uL RBC (3.5-6.1) 10^6/uL Hgb (14.0-18.0) g/dL Hct (42.0-52.0) % MCV (80.0-105.0) fl MCH (25.0-35.0) pg MCHC (31.0-37.0) g/dl RDW (11.5-14.5) % Plt Count (120.0-450.0) 10^3/uL MPV (7.0-11.0) fl Neut % (Auto) (50.0-68.0) % Lymph % (Auto) (22.0-35.0) % [place] % (Auto) (1.0-6.0) % Eos % (Auto) (1.5-5.0) % Baso % (Auto) (0.0-3.0) % Lymph # (Auto) (1.2-3.4) [place] # (Auto) (0.1-0.6) Eos # (Auto) (0.0-0.7) Baso # (Auto) (0.0-2.0) K/mm3 Absolute Neuts (auto) (1.4-6.5) pCO2 (35-45) mm/Hg pO2 (80-100) mm/Hg HCO3 (21-28) mmol/L ABG pH (7.35-7.45) ABG Total CO2 (22-28) mmol.L ABG O2 Saturation (95-98) % ABG O2 Content (15-23) ML/dl ABG Base Excess (-2.0-3.0) mmol/L ABG Hemoglobin (11.7-17.4) g/dL ABG Carboxyhemoglobin (0.5-1.5) % POC ABG HHb (Measured) (0-5) % ABG Methemoglobin (0.0-3.0) % ABG O2 Capacity (16-24) mL/dl Hgb O2 Saturation (95.0-98.0) % FiO2 % Sodium 143 (132-148) mmol/L Potassium 3.7 (3.6-5.0) mmol/L Chloride 101 (98-107) mmol/L Carbon Dioxide 42 H (21-33) mmol/L Anion Gap 4 L (10-20) BUN 56 H (7-21) mg/dL Creatinine 0.8 (0.8-1.5) mg/dl Est GFR ( Amer) > 60 Est GFR (Non-Af Amer) > 60 POC Glucose (mg/dL) 263 H (65-110) mg/dL Random Glucose 211 H (70-110) mg/dL Calcium 7.7 L (8.4-10.5) mg/dL Phosphorus 2.7 2.9 (2.5-4.5) mg/dL Magnesium 2.4 H 2.4 H (1.7-2.2) mg/dL Total Bilirubin (0.2-1.3) mg/dL AST (17-59) U/L ALT (7-56) U/L Alkaline Phosphatase (38-126) U/L Total Protein (5.8-8.3) g/dL Albumin (3.0-4.8) g/dL Globulin gm/dL Albumin/Globulin Ratio (1.1-1.8) 05/11/18 Range/Units 07:30 WBC (4.5-11.0) 10^3/uL RBC (3.5-6.1) 10^6/uL Hgb (14.0-18.0) g/dL Hct (42.0-52.0) % MCV (80.0-105.0) fl MCH (25.0-35.0) pg MCHC (31.0-37.0) g/dl RDW (11.5-14.5) % Plt Count (120.0-450.0) 10^3/uL MPV (7.0-11.0) fl Neut % (Auto) (50.0-68.0) % Lymph % (Auto) (22.0-35.0) % [place] % (Auto) (1.0-6.0) % Eos % (Auto) (1.5-5.0) % Baso % (Auto) (0.0-3.0) % Lymph # (Auto) (1.2-3.4) [place] # (Auto) (0.1-0.6) Eos # (Auto) (0.0-0.7) Baso # (Auto) (0.0-2.0) K/mm3 Absolute Neuts (auto) (1.4-6.5) pCO2 (35-45) mm/Hg pO2 (80-100) mm/Hg HCO3 (21-28) mmol/L ABG pH (7.35-7.45) ABG Total CO2 (22-28) mmol.L ABG O2 Saturation (95-98) % ABG O2 Content (15-23) ML/dl ABG Base Excess (-2.0-3.0) mmol/L ABG Hemoglobin (11.7-17.4) g/dL ABG Carboxyhemoglobin (0.5-1.5) % POC ABG HHb (Measured) (0-5) % ABG Methemoglobin (0.0-3.0) % ABG O2 Capacity (16-24) mL/dl Hgb O2 Saturation (95.0-98.0) % FiO2 % Sodium (132-148) mmol/L Potassium (3.6-5.0) mmol/L Chloride (98-107) mmol/L Carbon Dioxide (21-33) mmol/L Anion Gap (10-20) BUN (7-21) mg/dL Creatinine (0.8-1.5) mg/dl Est GFR ( Amer) Est GFR (Non-Af Amer) POC Glucose (mg/dL) 254 H (65-110) mg/dL Random Glucose (70-110) mg/dL Calcium (8.4-10.5) mg/dL Phosphorus (2.5-4.5) mg/dL Magnesium (1.7-2.2) mg/dL Total Bilirubin (0.2-1.3) mg/dL AST (17-59) U/L ALT (7-56) U/L Alkaline Phosphatase (38-126) U/L Total Protein (5.8-8.3) g/dL Albumin (3.0-4.8) g/dL Globulin gm/dL Albumin/Globulin Ratio (1.1-1.8) Laboratory Results - last 24 hr 05/11/18 05/11/18 05/11/18 07:30 08:47 11:25 WBC RBC Hgb Hct MCV MCH MCHC RDW Plt Count MPV Neut % (Auto) Lymph % (Auto) [place] % (Auto) Eos % (Auto) Baso % (Auto) Lymph # (Auto) [place] # (Auto) Eos # (Auto) Baso # (Auto) Absolute Neuts (auto) pCO2 pO2 HCO3 ABG pH ABG Total CO2 ABG O2 Saturation ABG O2 Content ABG Base Excess ABG Hemoglobin ABG Carboxyhemoglobin POC ABG HHb (Measured) ABG Methemoglobin ABG O2 Capacity Hgb O2 Saturation FiO2 Sodium Potassium Chloride Carbon Dioxide Anion Gap BUN Creatinine Est GFR ( Amer) Est GFR (Non-Af Amer) POC Glucose (mg/dL) 254 H 263 H Random Glucose Calcium Phosphorus 2.9 Magnesium 2.4 H Total Bilirubin AST ALT Alkaline Phosphatase Total Protein Albumin Globulin Albumin/Globulin Ratio 05/11/18 05/12/18 05/12/18 16:46 04:45 04:45 WBC 11.0 D RBC 3.09 L Hgb 8.7 L Hct 29.7 L MCV 96.1 MCH 28.2 MCHC 29.3 L RDW 18.6 H Plt Count 94 L MPV 12.1 H Neut % (Auto) 92.3 H Lymph % (Auto) 5.1 L [place] % (Auto) 2.5 Eos % (Auto) 0.0 L Baso % (Auto) 0.1 Lymph # (Auto) 0.6 L [place] # (Auto) 0.3 Eos # (Auto) 0.0 Baso # (Auto) 0.01 Absolute Neuts (auto) 10.18 H pCO2 pO2 HCO3 ABG pH ABG Total CO2 ABG O2 Saturation ABG O2 Content ABG Base Excess ABG Hemoglobin ABG Carboxyhemoglobin POC ABG HHb (Measured) ABG Methemoglobin ABG O2 Capacity Hgb O2 Saturation FiO2 Sodium 143 146 Potassium 3.7 4.5 Chloride 101 105 Carbon Dioxide 42 H 41 H Anion Gap 4 L 5 L BUN 56 H 58 H Creatinine 0.8 0.7 L Est GFR ( Amer) > 60 > 60 Est GFR (Non-Af Amer) > 60 > 60 POC Glucose (mg/dL) Random Glucose 211 H 175 H Calcium 7.7 L 7.5 L Phosphorus 2.7 Magnesium 2.4 H Total Bilirubin 0.3 AST 30 ALT 82 H Alkaline Phosphatase 119 Total Protein 4.9 L Albumin 2.1 L Globulin 2.8 Albumin/Globulin Ratio 0.7 L 05/12/18 06:15 WBC RBC Hgb Hct MCV MCH MCHC RDW Plt Count MPV Neut % (Auto) Lymph % (Auto) [place] % (Auto) Eos % (Auto) Baso % (Auto) Lymph # (Auto) [place] # (Auto) Eos # (Auto) Baso # (Auto) Absolute Neuts (auto) pCO2 53 H pO2 50.0 L HCO3 39.5 H ABG pH 7.48 H ABG Total CO2 41.1 H ABG O2 Saturation 88.2 L ABG O2 Content 11.3 L ABG Base Excess 14.2 H ABG Hemoglobin 9.4 L ABG Carboxyhemoglobin 2.8 H POC ABG HHb (Measured) 11.4 H ABG Methemoglobin 1.0 ABG O2 Capacity 12.8 L Hgb O2 Saturation 84.9 L FiO2 50.0 Sodium Potassium Chloride Carbon Dioxide Anion Gap BUN Creatinine Est GFR ( Amer) Est GFR (Non-Af Amer) POC Glucose (mg/dL) Random Glucose Calcium Phosphorus Magnesium Total Bilirubin AST ALT Alkaline Phosphatase Total Protein Albumin Globulin Albumin/Globulin Ratio Radiology Impressions: Radiology Impressions Head CT 05/10/18 14:50 IMPRESSION: No acute intracranial findings Chest X-Ray 05/11/18 06:48 IMPRESSION: Bilateral infiltrates showing improvement from prior study. Endotracheal and nasogastric tubes in satisfactory position Chest X-Ray 05/11/18 07:00 IMPRESSION: Increasing bilateral infiltrates are seen. The pattern could represent pulmonary edema or pneumonia. Chest X-Ray 05/11/18 17:46 IMPRESSION: Stable appearance of bilateral infiltrates. 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 Patient was diagnosed with sepsis 2/2 to HCAP. On 05/05, patient became hypoxia and was in respiratory distress. Patient subsequently intubated and sedated with propofol and versed. Plan: Neuro: S/p intubation for hypoxic repsiratory failure -Intubated on 05/05/18, currently sedated on precedix -Head CT w/o contrast on 05/10/18 showed no acute intracranial abnormalities -EEG on 05/11/18 showed abnormal EEG record that demonstrate the presence of moderate to severe non specific diffuse disturbance of cortical activity, findings are not specific. No seizures. Patient is not in status epilepticus. Cardio: Atrial flutter -EKG 05/10: Atrial flutter with 2:1 AV block with HR: 156 -currently rated controlled, on cardizem drip at 5mg/hr -Cardizem 120 mg PO daily held - will consider restarting PO and reducing IV cardizem if HR controlled -Maintain MAP>65. NSTEMI -EKG 05/10: Atrial flutter with 2:1 AV block with HR: 156 -Troponin: 05/06/09 10.9, 9.66, 8.96, 6.33 -Continue Aspirin 81mg, topical nitroglycerin q6 -Continue Lovenox 60 mg Q12 Elevated BNP -BNP: 3240, BNP pending for today. Consider diastolic CHF -Echocardiogram 05/07: EF: 49.3%, trace AR, MR, RVSP: 50 -Continue fluid restriction, continue lasix drip at 2mg/hr -CXR today shows interval mild improvement in the lungs, persistent heterogenous opacities and infiltrate RUL Pulm/Oncology Hypoxic respiratory failure 2/2 to ARDS from small cell lung carcinoma vs. pneumonitis -Patient intubated and sedated with settings 60%/12/18/400 -Maintain O2 saturation>92%. ABG 05/12 shows pH/pCO2/O2/bicarb 7.48/53/50/41 -As per Dr. Bullard, Heme/Onc, patient has possible pneumonitis as complication of Tecentriq treatment for SCLC -Treat Tecentriq side effect with solumedrol 60 mg Q6 -Recent PET CT shows improvement in small cell lung carcinoma -Weaning and sedation trials, Elevate bed to 30 degrees, oral protective hygiene daily, conservative fluid management COPD -Continue with Pulmicort 0.5 mg IH Q12, and xopenex 0.63 mg IH TID, solumedrol 60 mg Q6 ID: Multifocal pneumonia -CXR today shows interval mild improvement in the lungs, persistent heterogenous opacities and infiltrate RUL -Chest CT 04/27: multifocal pneumonia -Afebrile, WBC is 11 from 16, downtrending -Blood culture was negative for 5 days upon admission from 05/05. Blood culture reordered was negative for 3 days. -Procal 05/05: 0.55. Repeat procal was 0.62 on 05/09/18 -Vancomycin 1 gm Q12 day 7, Merrem 1 gm Q8 day 7, Nystatin 5 mg QID GI: Elevated LFTs -Likely due to congestive hepatopathy, will continue to trend Diet/PPX -continue jevity feedings, PPX with protonix /Nephro: -BUN/Cr stable, epstein in place I/O 3.4L/1.8L. -Maintain euvolemia, replace e-lytes as necessary Endocrinology: -Random glucose: 200s, HgbA1c: 6.2, High dose sliding scale insulin, target glucose 140-180 Heme Anemia -Hg is 8.7 today from 10.7, no obvious source of bleeding, will monitor. BP and HR are unremarkable DVT prophylaxis -Lovenox 60 mg Q12 as therapeutic anticoagulation for NSTEMI Disposition: Per families wishes, patient to remain full code. Patient seen and examined with Dr. Chan <Irma Chan - Last Filed: 05/12/18 17:51> CCU Objective - Vital Signs / Intake & Output Vital Signs (Last 4 hours): Vital Signs Temp Pulse BP Pulse Ox 05/12/18 16:06 101.3 F H 116 H 119/64 98 05/12/18 16:00 101.3 F H 105 H 98 05/12/18 15:36 101.1 F H 102 H 128/78 98 05/12/18 15:06 101.1 F H 115 H 151/70 H 98 05/12/18 14:36 100.9 F H 107 H 148/73 98 05/12/18 14:06 100.8 F H 106 H 141/65 99 05/12/18 14:00 100.8 F H 106 H 98 Intake and Output (Last 8hrs): Intake & Output 05/12/18 05/12/18 05/12/18 06:59 14:59 22:59 Intake Total 1234 100 Output Total 650 Balance 584 100 Weight 70.76 kg Intake: IV 674 100 Precedex 148 antibiotics 350 cardizem 60 lasix 16 Tube Feeding 560 Output: Urine 650 Urethral (Epstein) 650 Other: # Bowel Movements 1 - Medications Active Medications: Active Medications Generic Name Dose Route Start Last Admin Trade Name Freq PRN Reason Stop Dose Admin Acetaminophen 650 mg 05/04/18 09:27 05/12/18 15:57 Tylenol 325mg Tab PO 650 mg Q6H PRN Administration Pain, Mild (1-3) Acetaminophen 650 mg 05/10/18 20:29 05/10/18 20:55 Tylenol 650 Mg Supp RC 650 mg Q6H PRN Administration Fever >100.4 F Aspirin 81 mg 05/12/18 11:30 05/12/18 12:13 Aspirin Chewable PO 81 mg DAILY ZARI Administration Budesonide 0.5 mg 04/27/18 20:00 05/12/18 07:55 Pulmicort Respules IH 0.5 mg [id number] ZARI Administration Dextrose 0 ml 05/09/18 10:48 Dextrose 50% Inj IV STAT PRN Hypoglycemia Protocol Protocol Diltiazem HCl 120 mg 04/27/18 10:00 05/07/18 11:16 Cardizem Cd PO Not Given DAILY ZARI Enoxaparin Sodium 60 mg 05/07/18 10:15 05/12/18 09:49 Lovenox SC 60 mg Q12H ZARI Administration Protocol Meropenem 1 gm in 50 mls @ 100 mls/hr 05/05/18 15:15 05/12/18 13:34 Merrem Iv 1 Gm Premix IVPB 100 mls/hr Q8 ZARI Administration Protocol Vancomycin HCl 1 gm in 250 mls @ 167 mls/hr 05/05/18 15:15 05/12/18 15:56 Vancomycin 1gm IVPB 167 mls/hr Q12H ZARI Administration Protocol Sodium Chloride 1,000 mls @ 100 mls/hr 05/06/18 20:42 05/06/18 20:30 Sodium Chloride 0.9% IV 100 mls/hr .Q10H ZARI Administration Amiodarone HCl/Dextrose 360 mg in 200 mls @ 16.667 mls/hr 05/09/18 00:00 05/11/18 05:15 Nexterone 360 Mg In D5w 200 Ml (Premix) IV Not Given .Q12H ZARI Protocol 0.5 MG/MIN Dexmedetomidine HCl 400 mcg in 100 mls @ 3.357 mls/hr 05/09/18 10:31 05/12/18 12:07 Precedex 400mcg/100ml IV 0.8 mcg/kg/hr .Q24H PRN 13.426 mls/hr Sedation Administration Protocol 0.2 MCG/KG/HR Dextrose 1,000 mls @ 0 mls/hr 05/09/18 10:48 Dextrose 5% In Water 1000 Ml IV .Q0M PRN Hypoglycemia Protocol Protocol Per Protocol Micafungin Sodium 100 mg/ 100 mls @ 100 mls/hr 05/10/18 13:15 05/12/18 11:13 Sodium Chloride IV 05/17/18 13:16 100 mls/hr DAILY ZARI Administration Protocol diltiaZEM IVPB 100mg in NS 100 mls @ 10 mls/hr 05/11/18 08:12 05/11/18 16:16 Cardizem 100mg In Ns IV 5 mg/hr .Q10H PRN 5 mls/hr TITRATE PER MD ORDER Administration Protocol 10 MG/HR Furosemide 100 mg/ Dextrose 100 mls @ 2 mls/hr 05/11/18 19:06 05/11/18 19:17 IV 2 mls/hr .Q24H ZARI Administration Protocol 2 MG/HR Insulin Human Lispro 0 units 05/09/18 11:30 05/12/18 17:17 Humalog High SC 4 u ACHS ZARI Administration Protocol Levalbuterol HCl 0.63 mg 04/27/18 12:16 05/08/18 03:00 Xopenex IH 0.63 mg [id number] PRN Administration Shortness of Breath Levalbuterol HCl 0.63 mg 04/28/18 20:00 05/12/18 13:15 Xopenex IH 0.63 mg TIDRESP ZARI Administration Methylprednisolone 60 mg 05/11/18 10:01 05/12/18 15:58 Solu-Medrol IVP 60 mg Q6H ZARI Administration Morphine Sulfate 2 mg 05/06/18 12:03 05/11/18 08:08 Morphine IVP 2 mg Q4H PRN Administration Pain, severe (8-10) Nitroglycerin 0.5 ea 05/07/18 09:30 05/12/18 15:57 Nitro-Bid 2% Oint TOP Not Given Q6H ZARI Pantoprazole Sodium 40 mg 05/02/18 21:00 05/08/18 05:00 Protonix Ec Tab PO 40 mg 0600 ZARI Administration Pantoprazole Sodium 40 mg 05/09/18 10:00 05/12/18 09:50 Protonix Inj IVP 40 mg DAILY ZARI Administration Sotalol HCl 40 mg 05/09/18 10:00 05/11/18 09:16 Betapace PO Not Given BID ZARI Verapamil HCl 40 mg 05/10/18 14:00 05/11/18 09:16 [place] Tab PO Not Given TID ZARI Verapamil HCl 2.5 mg 05/10/18 12:31 05/11/18 10:21 Verapamil Inj IVP 2.5 mg Q6 PRN Administration FOR HR GREATER THAN 130 - Patient Studies Lab Studies: Microbiology Studies 05/11/18 18:27 Gram Stain - Final Trachasp 05/09/18 08:30 Blood Culture - Preliminary Blood-Venous NO GROWTH AFTER 3 DAYS 05/09/18 08:10 Blood Culture - Preliminary Blood-Venous NO GROWTH AFTER 3 DAYS Lab Studies 05/12/18 05/12/18 05/12/18 Range/Units 08:55 06:15 05:00 WBC (4.5-11.0) 10^3/uL RBC (3.5-6.1) 10^6/uL Hgb (14.0-18.0) g/dL Hct (42.0-52.0) % MCV (80.0-105.0) fl MCH (25.0-35.0) pg MCHC (31.0-37.0) g/dl RDW (11.5-14.5) % Plt Count (120.0-450.0) 10^3/uL MPV (7.0-11.0) fl Neut % (Auto) (50.0-68.0) % Lymph % (Auto) (22.0-35.0) % [place] % (Auto) (1.0-6.0) % Eos % (Auto) (1.5-5.0) % Baso % (Auto) (0.0-3.0) % Lymph # (Auto) (1.2-3.4) [place] # (Auto) (0.1-0.6) Eos # (Auto) (0.0-0.7) Baso # (Auto) (0.0-2.0) K/mm3 Absolute Neuts (auto) (1.4-6.5) pCO2 53 H (35-45) mm/Hg pO2 50.0 L (80-100) mm/Hg HCO3 39.5 H (21-28) mmol/L ABG pH 7.48 H (7.35-7.45) ABG Total CO2 41.1 H (22-28) mmol.L ABG O2 Saturation 88.2 L (95-98) % ABG O2 Content 11.3 L (15-23) ML/dl ABG Base Excess 14.2 H (-2.0-3.0) mmol/L ABG Hemoglobin 9.4 L (11.7-17.4) g/dL ABG Carboxyhemoglobin 2.8 H (0.5-1.5) % POC ABG HHb (Measured) 11.4 H (0-5) % ABG Methemoglobin 1.0 (0.0-3.0) % ABG O2 Capacity 12.8 L (16-24) mL/dl Hgb O2 Saturation 84.9 L (95.0-98.0) % FiO2 50.0 % Sodium (132-148) mmol/L Potassium (3.6-5.0) mmol/L Chloride (98-107) mmol/L Carbon Dioxide (21-33) mmol/L Anion Gap (10-20) BUN (7-21) mg/dL Creatinine (0.8-1.5) mg/dl Est GFR ( Amer) Est GFR (Non-Af Amer) POC Glucose (mg/dL) 283 H (65-110) mg/dL Random Glucose (70-110) mg/dL Calcium (8.4-10.5) mg/dL Total Bilirubin (0.2-1.3) mg/dL AST (17-59) U/L ALT (7-56) U/L Alkaline Phosphatase (38-126) U/L NT-Pro-B Natriuret Pep 9730 H (0-450) pg/mL Total Protein (5.8-8.3) g/dL Albumin (3.0-4.8) g/dL Globulin gm/dL Albumin/Globulin Ratio (1.1-1.8) 05/12/18 05/12/18 05/11/18 Range/Units 04:45 04:45 21:14 WBC 11.0 D (4.5-11.0) 10^3/uL RBC 3.09 L (3.5-6.1) 10^6/uL Hgb 8.7 L (14.0-18.0) g/dL Hct 29.7 L (42.0-52.0) % MCV 96.1 (80.0-105.0) fl MCH 28.2 (25.0-35.0) pg MCHC 29.3 L (31.0-37.0) g/dl RDW 18.6 H (11.5-14.5) % Plt Count 94 L (120.0-450.0) 10^3/uL MPV 12.1 H (7.0-11.0) fl Neut % (Auto) 92.3 H (50.0-68.0) % Lymph % (Auto) 5.1 L (22.0-35.0) % [place] % (Auto) 2.5 (1.0-6.0) % Eos % (Auto) 0.0 L (1.5-5.0) % Baso % (Auto) 0.1 (0.0-3.0) % Lymph # (Auto) 0.6 L (1.2-3.4) [place] # (Auto) 0.3 (0.1-0.6) Eos # (Auto) 0.0 (0.0-0.7) Baso # (Auto) 0.01 (0.0-2.0) K/mm3 Absolute Neuts (auto) 10.18 H (1.4-6.5) pCO2 (35-45) mm/Hg pO2 (80-100) mm/Hg HCO3 (21-28) mmol/L ABG pH (7.35-7.45) ABG Total CO2 (22-28) mmol.L ABG O2 Saturation (95-98) % ABG O2 Content (15-23) ML/dl ABG Base Excess (-2.0-3.0) mmol/L ABG Hemoglobin (11.7-17.4) g/dL ABG Carboxyhemoglobin (0.5-1.5) % POC ABG HHb (Measured) (0-5) % ABG Methemoglobin (0.0-3.0) % ABG O2 Capacity (16-24) mL/dl Hgb O2 Saturation (95.0-98.0) % FiO2 % Sodium 146 (132-148) mmol/L Potassium 4.5 (3.6-5.0) mmol/L Chloride 105 (98-107) mmol/L Carbon Dioxide 41 H (21-33) mmol/L Anion Gap 5 L (10-20) BUN 58 H (7-21) mg/dL Creatinine 0.7 L (0.8-1.5) mg/dl Est GFR ( Amer) > 60 Est GFR (Non-Af Amer) > 60 POC Glucose (mg/dL) 277 H (65-110) mg/dL Random Glucose 175 H (70-110) mg/dL Calcium 7.5 L (8.4-10.5) mg/dL Total Bilirubin 0.3 (0.2-1.3) mg/dL AST 30 (17-59) U/L ALT 82 H (7-56) U/L Alkaline Phosphatase 119 (38-126) U/L NT-Pro-B Natriuret Pep (0-450) pg/mL Total Protein 4.9 L (5.8-8.3) g/dL Albumin 2.1 L (3.0-4.8) g/dL Globulin 2.8 gm/dL Albumin/Globulin Ratio 0.7 L (1.1-1.8) 05/11/18 Range/Units 16:06 WBC (4.5-11.0) 10^3/uL RBC (3.5-6.1) 10^6/uL Hgb (14.0-18.0) g/dL Hct (42.0-52.0) % MCV (80.0-105.0) fl MCH (25.0-35.0) pg MCHC (31.0-37.0) g/dl RDW (11.5-14.5) % Plt Count (120.0-450.0) 10^3/uL MPV (7.0-11.0) fl Neut % (Auto) (50.0-68.0) % Lymph % (Auto) (22.0-35.0) % [place] % (Auto) (1.0-6.0) % Eos % (Auto) (1.5-5.0) % Baso % (Auto) (0.0-3.0) % Lymph # (Auto) (1.2-3.4) [place] # (Auto) (0.1-0.6) Eos # (Auto) (0.0-0.7) Baso # (Auto) (0.0-2.0) K/mm3 Absolute Neuts (auto) (1.4-6.5) pCO2 (35-45) mm/Hg pO2 (80-100) mm/Hg HCO3 (21-28) mmol/L ABG pH (7.35-7.45) ABG Total CO2 (22-28) mmol.L ABG O2 Saturation (95-98) % ABG O2 Content (15-23) ML/dl ABG Base Excess (-2.0-3.0) mmol/L ABG Hemoglobin (11.7-17.4) g/dL ABG Carboxyhemoglobin (0.5-1.5) % POC ABG HHb (Measured) (0-5) % ABG Methemoglobin (0.0-3.0) % ABG O2 Capacity (16-24) mL/dl Hgb O2 Saturation (95.0-98.0) % FiO2 % Sodium (132-148) mmol/L Potassium (3.6-5.0) mmol/L Chloride (98-107) mmol/L Carbon Dioxide (21-33) mmol/L Anion Gap (10-20) BUN (7-21) mg/dL Creatinine (0.8-1.5) mg/dl Est GFR ( Amer) Est GFR (Non-Af Amer) POC Glucose (mg/dL) 210 H (65-110) mg/dL Random Glucose (70-110) mg/dL Calcium (8.4-10.5) mg/dL Total Bilirubin (0.2-1.3) mg/dL AST (17-59) U/L ALT (7-56) U/L Alkaline Phosphatase (38-126) U/L NT-Pro-B Natriuret Pep (0-450) pg/mL Total Protein (5.8-8.3) g/dL Albumin (3.0-4.8) g/dL Globulin gm/dL Albumin/Globulin Ratio (1.1-1.8) Laboratory Results - last 24 hr 05/11/18 05/11/18 05/12/18 16:06 21:14 04:45 WBC 11.0 D RBC 3.09 L Hgb 8.7 L Hct 29.7 L MCV 96.1 MCH 28.2 MCHC 29.3 L RDW 18.6 H Plt Count 94 L MPV 12.1 H Neut % (Auto) 92.3 H Lymph % (Auto) 5.1 L [place] % (Auto) 2.5 Eos % (Auto) 0.0 L Baso % (Auto) 0.1 Lymph # (Auto) 0.6 L [place] # (Auto) 0.3 Eos # (Auto) 0.0 Baso # (Auto) 0.01 Absolute Neuts (auto) 10.18 H pCO2 pO2 HCO3 ABG pH ABG Total CO2 ABG O2 Saturation ABG O2 Content ABG Base Excess ABG Hemoglobin ABG Carboxyhemoglobin POC ABG HHb (Measured) ABG Methemoglobin ABG O2 Capacity Hgb O2 Saturation FiO2 Sodium Potassium Chloride Carbon Dioxide Anion Gap BUN Creatinine Est GFR ( Amer) Est GFR (Non-Af Amer) POC Glucose (mg/dL) 210 H 277 H Random Glucose Calcium Total Bilirubin AST ALT Alkaline Phosphatase NT-Pro-B Natriuret Pep Total Protein Albumin Globulin Albumin/Globulin Ratio 05/12/18 05/12/18 05/12/18 04:45 05:00 06:15 WBC RBC Hgb Hct MCV MCH MCHC RDW Plt Count MPV Neut % (Auto) Lymph % (Auto) [place] % (Auto) Eos % (Auto) Baso % (Auto) Lymph # (Auto) [place] # (Auto) Eos # (Auto) Baso # (Auto) Absolute Neuts (auto) pCO2 53 H pO2 50.0 L HCO3 39.5 H ABG pH 7.48 H ABG Total CO2 41.1 H ABG O2 Saturation 88.2 L ABG O2 Content 11.3 L ABG Base Excess 14.2 H ABG Hemoglobin 9.4 L ABG Carboxyhemoglobin 2.8 H POC ABG HHb (Measured) 11.4 H ABG Methemoglobin 1.0 ABG O2 Capacity 12.8 L Hgb O2 Saturation 84.9 L FiO2 50.0 Sodium 146 Potassium 4.5 Chloride 105 Carbon Dioxide 41 H Anion Gap 5 L BUN 58 H Creatinine 0.7 L Est GFR ( Amer) > 60 Est GFR (Non-Af Amer) > 60 POC Glucose (mg/dL) Random Glucose 175 H Calcium 7.5 L Total Bilirubin 0.3 AST 30 ALT 82 H Alkaline Phosphatase 119 NT-Pro-B Natriuret Pep 9730 H Total Protein 4.9 L Albumin 2.1 L Globulin 2.8 Albumin/Globulin Ratio 0.7 L 05/12/18 08:55 WBC RBC Hgb Hct MCV MCH MCHC RDW Plt Count MPV Neut % (Auto) Lymph % (Auto) [place] % (Auto) Eos % (Auto) Baso % (Auto) Lymph # (Auto) [place] # (Auto) Eos # (Auto) Baso # (Auto) Absolute Neuts (auto) pCO2 pO2 HCO3 ABG pH ABG Total CO2 ABG O2 Saturation ABG O2 Content ABG Base Excess ABG Hemoglobin ABG Carboxyhemoglobin POC ABG HHb (Measured) ABG Methemoglobin ABG O2 Capacity Hgb O2 Saturation FiO2 Sodium Potassium Chloride Carbon Dioxide Anion Gap BUN Creatinine Est GFR ( Amer) Est GFR (Non-Af Amer) POC Glucose (mg/dL) 283 H Random Glucose Calcium Total Bilirubin AST ALT Alkaline Phosphatase NT-Pro-B Natriuret Pep Total Protein Albumin Globulin Albumin/Globulin Ratio Radiology Impressions: Radiology Impressions Chest X-Ray 05/11/18 17:46 IMPRESSION: Stable appearance of bilateral infiltrates. Chest X-Ray 05/11/18 22:43 IMPRESSION: Interval worsening of reticular opacities at the right lower lobe since the prior study. Otherwise no significant changes. Chest X-Ray 05/12/18 08:00 IMPRESSION: Interval mild improvement in the lungs since the previous study. Persistent heterogeneous opacities and infiltrate at the right upper lobe. Chest X-Ray 05/12/18 09:10 IMPRESSION: Slight improvement in the left lower lobe since the previous exam. Otherwise no significant interval change. Appropriate position of the ETT and enteric tube. Critical Care Progress Note - Nutrition Nutrition: Nutrition Category Date Time Status NPO Diet [DIET] Diets 05/06/18 Breakfast Ordered Addendum Addendum: 05/12/18 17:51 MICU Attending Addendum: Patient seen and examined with housestaff. 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 Currently continuing plan to diurese on lasix drip given his pulm edema, hypoxia and rising BNP. If no loom changer the next 12-24 hours then I suspect he is actually intravascularly dry given his rising BUN/CR ratio (pre-renal) and rising bicarb causing a contraction alkalosis. Will consider diamox as well. His hypoxia may be more from inflamm causes rather than cardiogenic pulm edema. On steroids for possible pneumonitis. Cont abx as per ID as well. cardio on board managing his Afib on lovenox for anticoag on sotatol and cardizem drip would rec resuming his home PO cardizem Rest of care as above Irma Chan MD MICU Attending
--- NOTE | 2018-05-12 08:53 | RAD ---
Date of service: 05/12/2018 HISTORY: follow up infiltrate COMPARISON: Comparison is made with 05/11/2018 FINDINGS: LUNGS: Interval mild improvement in the diffuse reticular and reticulonodular opacities in the lungs since the prior study. Persistent heterogeneous opacity and or infiltrate at the right upper lobe. The ET tube is seen at appropriate position. PLEURA: There is blunting of the right costophrenic angle suspicious for right pleural effusion. CARDIOVASCULAR: No aortic atherosclerotic calcification present. Normal cardiac size. The possibility of pulmonary vascular congestion also should be considered. OSSEOUS STRUCTURES: No significant abnormalities. VISUALIZED UPPER ABDOMEN: Normal. OTHER FINDINGS: Right-sided Infusaport is seen in place. IMPRESSION: Interval mild improvement in the lungs since the previous study. Persistent heterogeneous opacities and infiltrate at the right upper lobe.
[2018-05-12] MEDS: Insulin Lispro (HUMAlog) HIGH Coverage SC SCH ×4 (09:03→22:39)
--- NOTE | 2018-05-12 09:21 | RAD ---
Date of service: 05/11/2018 HISTORY: ETT readjustment COMPARISON: Comparison is made with 05/11/2018 FINDINGS: LUNGS: Again noted are patchy reticulonodular opacities in the lungs larger and more in the right upper lobe. Interval worsening of reticular opacities at the right lower lobe since the prior study. Appropriate position of the ETT. PLEURA: Blunting of both costophrenic angle larger on the right CARDIOVASCULAR: No aortic atherosclerotic calcification present. Normal cardiac size. No pulmonary vascular congestion. OSSEOUS STRUCTURES: No significant abnormalities. VISUALIZED UPPER ABDOMEN: NG tube seen extending to the stomach. OTHER FINDINGS: None. IMPRESSION: Interval worsening of reticular opacities at the right lower lobe since the prior study. Otherwise no significant changes.
[2018-05-12] MEDS: Enoxaparin 60 mg Syringe SC SCH ×2 (09:49→22:44)
--- NOTE | 2018-05-12 11:05 | PN ---
DATE: 05/12/2018 PULMONARY CRITICAL CARE PROGRESS NOTE REFERRING PHYSICIAN: Erasmo Briggs MD SUBJECTIVE: The patient remains sedated and intubated. No acute events noted overnight. Heart rate has been controlled at this time. No hemoptysis, hematemesis, hematuria, diarrhea, or leg swelling reported. OBJECTIVE: GENERAL: Intubated and sedated. VITAL SIGNS: Blood pressure 149/77, pulse 74, temperature 98.7. HEENT: Nasogastric tube in place. Endotracheal tube in place. NECK: Supple. No JVD. RESPIRATORY: Fair airflow. CARDIOVASCULAR: S1, S2. ABDOMEN: Soft. No distention. No organomegaly. EXTREMITIES: No bilateral lower extremity edema. NEUROLOGIC: Intubated and sedated. MEDICATIONS: Reviewed. Tylenol 650 mg every 6 hours p.r.n. mild pain, Tylenol 650 rectally every 6 hours p.r.n. for fever greater 100.4, amiodarone/dextrose 360 mg in 200 mL every 12 hours, aspirin 300 mg rectal daily, Pulmicort 0.5 mg inhalation every 12 hours, Precedex 400 mcg every 24 hours p.r.n., Cardizem 100 mg every 10 hours p.r.n., Lovenox 60 mg every 12 hours, Lasix 100 mg daily and 2 mg per hour, Humalog siding scale a.c. and at bedtime, Xopenex 0.63 mg inhalation every 6 hours p.r.n., Xopenex 0.63 mg inhalation 3 times a day, meropenem 1 g every 8 hours, Solu-Medrol 60 mg every 6 hours, micafungin 100 mg daily, morphine 2 mg every 4 hours p.r.n., nitroglycerin topically every 6 hours, Levophed p.r.n., Protonix 40 mg daily, propofol 1000 mg p.r.n., sodium chloride 0.9% 1000 mL at a 100 mL per hour, sotalol 40 mg twice a day, tramadol 50 mg every 8 hours p.r.n., vancomycin 1 g every 12 hours, verapamil 2.5 mg every 6 hours p.r.n. and verapamil 40 mg three times a day. LABORATORY DATA: Reviewed. WBC 11.3, RBC 3.09, hemoglobin 8.7, hematocrit 29.7, and platelets 94. PCO2 of 53, pO2 of 50, HCO3 of 39.5. ABG pH 7.48 and FIO2 of 50. Sodium 146, potassium 4.5, chloride 105, carbon dioxide 41, anion gap 5, BUN 58, creatinine 0.7, GFR greater than 60, POC glucose 283, random glucose 175, calcium 7.5, total bilirubin 0.3, AST 30, ALT 82, alkaline phosphatase 119, total protein 4.9, albumin 2.1, globulin 2.8 and albumin-globulin ratio 0.7. Blood cultures preliminary, no growth after three days. Chest x-ray shows interval mild improvement in the lungs since prior study, persistent heterogeneous opacities and infiltrate at the right upper lobe. EEG showed no seizures. The patient is not in status epilepticus. IMPRESSION AND PLAN: Unresectable small cell lung cancer requiring radiation and chemotherapy in the past; chronic obstructive lung disease; paroxysmal atrial fibrillation; respiratory failure, on ventilator; cardiac infarction; healthcare-associated pneumonia, failure to thrive, sepsis. The patient with acute lung injury, multifactorial, euvolemic. FIO2 was increased from 50 to 60. Based on blood gases, we will repeat ABGs in the morning. Continue present vent setting. Maintain oxygen saturation 92% or greater. Continue inhaled bronchodilators and antibiotic therapy. We will repeat chest x-ray, labs, ABGs in the morning. Prognosis is poor. Critical care time spent more than 35 minutes. The patient was seen and examined with Dr. Yi. Discussed assessment and plan as described above. Thank you for this consult. We will follow with you. Juan Carlos Paul APN Aura Yi MD
[2018-05-12] MEDS: Micafungin 100 MG in Sodium Chloride 0.9% 100 ML IV SCH (11:13)
--- NOTE | 2018-05-12 11:58 | PN ---
DATE: 05/12/2018 REASON FOR CONSULTATION: Followup status post respiratory failure, non-ST segment myocardial infarction, lung CA with metastases, atrial fibrillation with rapid rate, now converted to normal sinus, on Cardizem drip. The patient is on vent, sedated. PHYSICAL EXAMINATION: GENERAL: The patient remained on vent, IV Cardizem and IV Lasix. VITAL SIGNS: Temperature afebrile, heart rate 72, blood pressure 149/77. HEENT: PERRLA. Extraocular muscles intact. NECK: Supple. No carotid bruits. No thyromegaly. CHEST: Clear to auscultation. HEART: S1 and S2 regular. ABDOMEN: Soft. EXTREMITIES: Clubbing, cyanosis negative. LABORATORY DATA: Blood workup as follows. WBC 16, hemoglobin 10, hematocrit 34.4, platelet count 93. Chemistries show sodium 142, potassium 4.5, chloride 105, carbon dioxide 45, anion gap of 5, BUN 15 and creatinine 0.7. AST 123. IMPRESSION: A 77-year-old male with a past medical history significant for lung carcinoma with metastasis, paroxysmal atrial fibrillation, on sotalol and anticoagulation. He was on the floor. Has respiratory distress. Intubated as outpatient, is in the ICU. Initially, the patient went into atrial flutter with rapid ventricular rate, did not control with verapamil and digoxin, later started Cardizem, now the patient is well controlled. RECOMMENDATIONS: We will leave for now Cardizem 5 mg, continue weight management, continue NG feeding, discontinue sotalol and discontinue verapamil. If the patient remained stable, we will change Cardizem later. For now, continue Cardizem. Overall, the patient's condition is critical. Long-term prognosis is extremely guarded. Family is aware of that. Aura Orozco MD
--- NOTE | 2018-05-12 13:20 | PN ---
DATE: 05/12/2018 SUBJECTIVE: The patient is in bed in no acute distress, non toxic and seen earlier today in [facility], bed 5. He remains intubated on ventilator. Overall, chronically ill, cachectic, end stage. PHYSICAL EXAMINATION: VITAL SIGNS: Temperature 98; blood pressure 149/70; respiratory rate, on the vent; heart rate of 74. HEENT: Examination of HEENT is unremarkable. ET tube is in place. NECK: Supple. LUNGS: Decreased breath sounds. HEART: Normal S1, S2. ABDOMEN: Soft, nontender. LABORATORY DATA: White count 11,000, hemoglobin 8, platelets 94,000 with BUN of 58, creatinine of 0.7 and procalcitonin is down to 0.62. Urinalysis is noted and serology, urine for Legionella antigen is negative and influenza is negative. Microbiology reveals the blood cultures show no growth. DIAGNOSTIC DATA: Chest x-ray is reviewed. ASSESSMENT AND PLAN: This is a 77-year-old male with new onset of hypoxic respiratory failure; ventilator dependent respiratory failure with severe sepsis; hospital-acquired pneumonia in face of small cell lung cancer, stage IV, status post chemotherapy and radiation; chronic obstructive lung disease; atrial fibrillation; gastritis. On vanco, cefepime, Mycamine day #7,Tamiflu day #4. Overall prognosis is quite poor in this patient who appears cachectic with wasting syndrome, temporal wasting, end-stage lung cancer. On meropenem and Mycamine Solu-Medrol, vancomycin. All blood cultures are negative and nasal MRSA screen is negative, initially from 04/27/2018, the repeat ones are pending. We will follow. Chon Guerra MD
--- NOTE | 2018-05-12 13:44 | RAD ---
Date of service: 05/12/2018 HISTORY: follow up infiltrate COMPARISON: Comparison is made with the previous same-day exam FINDINGS: LUNGS: Again seen are patchy heterogeneous reticular and reticulonodular opacities in the lungs more prominent at the right upper lobe. Slight interval improvement in the left lower lobe since the previous exam. The ET tube is seen at appropriate position. PLEURA: There is a small right pleural effusion noted. CARDIOVASCULAR: No aortic atherosclerotic calcification present. Normal cardiac size. No pulmonary vascular congestion. OSSEOUS STRUCTURES: No significant abnormalities. VISUALIZED UPPER ABDOMEN: Normal. OTHER FINDINGS: Right-sided Infusaport is seen in place. IMPRESSION: Slight improvement in the left lower lobe since the previous exam. Otherwise no significant interval change. Appropriate position of the ETT and enteric tube.
--- NOTE | 2018-05-12 17:03 | PN ---
DATE: 05/12/2018 This is [facility] visit in the intensive care unit. For Dr. Bullard. SUBJECTIVE: The patient is a 77-year-old male lying sedated, intubated in the intensive care unit after treatment for acute respiratory failure. 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 The patient's family was at the bedside yesterday with long discussion with Dr. Bullard and development director with the family requesting to continue Full Code status in the interim with the patient's prognosis poor. We will continue aggressive supportive care as indicated. It should be noted that his EEG done yesterday was read as abnormal with further information later in this dictation. PHYSICAL EXAMINATION: VITAL SIGNS: Temperature 99.1, pulse 92, respirations with ventilatory settings, with oxygen saturation 100%, blood pressure 128/73 with pressors. HEENT: The patient is intubated, does not open eyes to command. NECK: No nodes. HEART: Regular rate, occasional ectopic beat. LUNGS: Scattered rhonchi. Decreased breath sounds in the right. ABDOMEN: Soft, nontender. EXTREMITIES: Trace +1 edema of the feet. SKIN: Warm and dry with ecchymotic changes on the arms. NEUROLOGIC: The patient is sedated, but does not respond to verbal stimuli. LABORATORY DATA: The patient's labs were done. White blood cell count of 11, hemoglobin 8.7, hematocrit 29.7, platelet count of 94,000. Metabolic panel, non-fasting sugar of 283, otherwise within normal range. The patient's metabolic panel except for BUN 58, creatinine 0.7 and an ALT of 82, is otherwise within normal range. He had a beta natriuretic peptide of 9730. ASSESSMENT: For this patient is that of respiratory failure with intubation, extensive small cell carcinoma of the lung stage IV, history of atrial fibrillation, sepsis, systemic inflammatory response syndrome, gastritis, history of pneumothorax, cachexia, malignancy. PLAN: The plan for this patient is to continue aggressive and supportive care. The patient is still being a full code with DNR/DNI, hospice status addressed with family with them to reconsider should the patient's status not improve or deteriorate. We will monitor clinically with labs. This is a complex patient with a comprehensive medically necessary and appropriate visit carried out in excess of 20 minutes with the patient's case discussed with consultants along with intensive care personnel. Erasmo Briggs MD
[2018-05-12] MEDS: diltiaZEM IVPB 100mg in NS 100 ML IV PRN (18:29)
[2018-05-12] MEDS: Furosemide 100 MG in Dextrose 5% In Water 90 ML IV SCH (18:30)
[2018-05-12] MEDS: Morphine 2 mg/ml ISec IVP PRN (19:43)
[2018-05-12] MEDS: NOREPINEPHRINE BIT/0.9 % NACL 4 MG/250 ML BAG IV PRN (20:22)
[2018-05-12] MEDS ORDERED: HYDROmorphone 0.5 mg/0.5 ml ISec IVP STA (22:39)
[2018-05-13] MEDS: Dexmedetomidine 400mcg/100mL 400 MCG/100 ML BOTTLE IV PRN ×4 (00:30→22:01)
[2018-05-13] MEDS: HYDROmorphone 0.5 mg/0.5 ml ISec IVP PRN ×2 (00:39→12:46)
[2018-05-13] MEDS: Meropenem IV 1 gm in NS 1 GM/50 ML BAG IVPB SCH ×3 (05:10→21:37)
[2018-05-13] MEDS: Vancomycin 1gm in NS 250ml 1 GM/250 ML BAG IVPB SCH ×2 (05:12→16:07)
[2018-05-13] MEDS: MethylPREDNISolone 40 mg Vial IVP SCH ×4 (05:13→21:37)
[2018-05-13] MEDS: Nitroglycerin 2% Ointment Foilpak UD TOP SCH (05:14)
[2018-05-13] MEDS: NOREPINEPHRINE BIT/0.9 % NACL 4 MG/250 ML BAG IV PRN (05:15)
[2018-05-13 05:25] LABS: ARTERIAL BLOOD GAS HCO3 41.7 mmol/L (21-28); ARTERIAL BLOOD GAS HEMOGLOBIN 10.4 g/dL (11.7-17.4); ARTERIAL BLOOD GAS O2 CAPACITY 14.1 mL/dl (16-24); ARTERIAL BLOOD GAS O2 CONTENT 12.8 ML/dl (15-23); ARTERIAL BLOOD GAS PCO2 60 mm/Hg (35-45); ARTERIAL BLOOD GAS PH 7.45 (7.35-7.45); ARTERIAL BLOOD GAS TCO2 43.5 mmol.L (22-28)
--- NOTE | 2018-05-13 07:09 | CP.CCUPN ---
<Ayanna Tomas - Last Filed: 05/13/18 13:44> CCU Subjective - Physician Review Subjective (Free Text): Ayanna Tomas PGY1 Critical Care Progress Note Patient seen and examined at bedside this morning. Patient noted to have elevated HR in the 160's, given cardizem PO with drop in BP to 70/30's. Patient subsequently started on levophed. Heart rate continues to be elevated this AM in the 150s. Currently on the following drips: cardizem 15 mg/hr, levophed at 4mcg/hr, and precedex. Remains sedated and intubated with vent settings of 60/12/18/400. Rectal tube ordered. Will get panculture and cdiff antigen/toxin. 12 point ROS limited due to patient status. CCU Objective - Vital Signs / Intake & Output Vital Signs (Last 4 hours): Vital Signs Pulse BP 05/13/18 05:11 152 H 119/78 Intake and Output (Last 8hrs): Intake & Output 05/12/18 05/13/18 05/13/18 22:59 06:59 14:59 Intake Total 1671 490 Output Total 650 Balance 1021 490 Intake: IV 551 490 Precedex 17 antibiotics 350 cardizem 60 lasix 24 Tube Feeding 720 Other 400 Output: Urine 650 Urethral (Yang) 650 Emesis 0 Oral Regurgitation 0 Other 0 Other: # Bowel Movements 2 - Physical Exam Head: Positive for: Atraumatic, Normocephalic Pupils: Positive for: PERRL Extroacular Muscles: Positive for: EOMI Conjunctiva: Positive for: Normal Mouth: Positive for: Moist Mucous Membranes Neck: Positive for: Normal Range of Motion Respiratory/Chest: Positive for: Respiratory Distress, Wheezes, Rales, Other (currently on ventilator). Negative for: Accessory Muscle Use Cardiovascular: Positive for: Normal S1, S2, Irregular Rhythm. Negative for: Murmurs Abdomen: Negative for: Tenderness, Distention, Peritoneal Signs Back: Positive for: Normal Inspection Upper Extremity: Positive for: Normal Inspection. Negative for: Cyanosis, Edema Lower Extremity: Positive for: Normal Inspection. Negative for: Edema Neurological: Positive for: CN II-XII Intact, Other (intubated) Skin: Positive for: Warm, Dry, Normal Color, Other (R IJ central port noted). Negative for: Rashes Psychiatric: Positive for: Alert, Oriented x 3, Normal Insight, Normal Concentration - Medications Active Medications: Active Medications Generic Name Dose Route Start Last Admin Trade Name Freq PRN Reason Stop Dose Admin Acetaminophen 650 mg 05/04/18 09:27 05/12/18 22:44 Tylenol 325mg Tab PO 650 mg Q6H PRN Administration Pain, Mild (1-3) Acetaminophen 650 mg 05/10/18 20:29 05/10/18 20:55 Tylenol 650 Mg Supp RC 650 mg Q6H PRN Administration Fever >100.4 F Aspirin 81 mg 05/12/18 11:30 05/12/18 12:13 Aspirin Chewable PO 81 mg DAILY ZARI Administration Budesonide 0.5 mg 04/27/18 20:00 05/12/18 19:48 Pulmicort Respules IH 0.5 mg [id number] ZARI Administration Dextrose 0 ml 05/09/18 10:48 Dextrose 50% Inj IV STAT PRN Hypoglycemia Protocol Protocol Diltiazem HCl 120 mg 04/27/18 10:00 05/07/18 11:16 Cardizem Cd PO Not Given DAILY ZARI Enoxaparin Sodium 60 mg 05/07/18 10:15 05/12/18 22:44 Lovenox SC 60 mg Q12H ZARI Administration Protocol Hydromorphone HCl 0.5 mg 05/13/18 00:26 05/13/18 00:39 Dilaudid IVP 0.5 mg Q4H PRN Administration Pain, severe (8-10) Meropenem 1 gm in 50 mls @ 100 mls/hr 05/05/18 15:15 05/13/18 05:10 Merrem Iv 1 Gm Premix IVPB 100 mls/hr Q8 ZARI Administration Protocol Vancomycin HCl 1 gm in 250 mls @ 167 mls/hr 05/05/18 15:15 05/13/18 05:12 Vancomycin 1gm IVPB 167 mls/hr Q12H ZARI Administration Protocol Sodium Chloride 1,000 mls @ 100 mls/hr 05/06/18 20:42 05/06/18 20:30 Sodium Chloride 0.9% IV 100 mls/hr .Q10H ZARI Administration Amiodarone HCl/Dextrose 360 mg in 200 mls @ 16.667 mls/hr 05/09/18 00:00 05/11/18 05:15 Nexterone 360 Mg In D5w 200 Ml (Premix) IV Not Given .Q12H ZARI Protocol 0.5 MG/MIN Dexmedetomidine HCl 400 mcg in 100 mls @ 3.357 mls/hr 05/09/18 10:31 05/13/18 06:55 Precedex 400mcg/100ml IV 0.8 mcg/kg/hr .Q24H PRN 13.426 mls/hr Sedation Administration Protocol 0.2 MCG/KG/HR Dextrose 1,000 mls @ 0 mls/hr 05/09/18 10:48 Dextrose 5% In Water 1000 Ml IV .Q0M PRN Hypoglycemia Protocol Protocol Per Protocol Micafungin Sodium 100 mg/ 100 mls @ 100 mls/hr 05/10/18 13:15 05/12/18 11:13 Sodium Chloride IV 05/17/18 13:16 100 mls/hr DAILY ZARI Administration Protocol diltiaZEM IVPB 100mg in NS 100 mls @ 10 mls/hr 05/11/18 08:12 05/13/18 06:50 Cardizem 100mg In Ns IV 15 mg/hr .Q10H PRN 15 mls/hr TITRATE PER MD ORDER Titration Protocol 10 MG/HR Furosemide 100 mg/ Dextrose 100 mls @ 2 mls/hr 05/11/18 19:06 05/12/18 18:30 IV 2 mls/hr .Q24H ZARI Administration Protocol 2 MG/HR NOREPINEPHRINE BIT/0.9 % NACL 4 mg in 250 mls @ 15 mls/hr 05/12/18 19:49 05/13/18 05:15 Levophed 4 Mg/ 250 Ml Ns Premixed IV 4 mcg/min .[id number] PRN 15 mls/hr TITRATE PER MD ORDER Administration Protocol 4 MCG/MIN Insulin Human Lispro 0 units 05/09/18 11:30 05/12/18 22:39 Humalog High SC Not Given ACHS ZARI Protocol Levalbuterol HCl 0.63 mg 04/27/18 12:16 05/08/18 03:00 Xopenex IH 0.63 mg [id number] PRN Administration Shortness of Breath Levalbuterol HCl 0.63 mg 04/28/18 20:00 05/12/18 19:48 Xopenex IH 0.63 mg TIDRESP ZARI Administration Methylprednisolone 60 mg 05/11/18 10:01 05/13/18 05:13 Solu-Medrol IVP 60 mg Q6H ZARI Administration Nitroglycerin 0.5 ea 05/07/18 09:30 05/13/18 05:14 Nitro-Bid 2% Oint TOP Not Given Q6H ZARI Pantoprazole Sodium 40 mg 05/02/18 21:00 05/08/18 05:00 Protonix Ec Tab PO 40 mg 0600 ZARI Administration Pantoprazole Sodium 40 mg 05/09/18 10:00 05/12/18 09:50 Protonix Inj IVP 40 mg DAILY ZARI Administration Sotalol HCl 40 mg 05/09/18 10:00 05/11/18 09:16 Betapace PO Not Given BID ZARI Verapamil HCl 40 mg 05/10/18 14:00 05/11/18 09:16 Calan Tab PO Not Given TID ZARI Verapamil HCl 2.5 mg 05/10/18 12:31 05/13/18 05:11 Verapamil Inj IVP 2.5 mg Q6 PRN Administration FOR HR GREATER THAN 130 - Patient Studies Lab Studies: Microbiology Studies 05/11/18 18:27 Gram Stain - Final Trachasp 05/09/18 08:30 Blood Culture - Preliminary Blood-Venous NO GROWTH AFTER 3 DAYS 05/09/18 08:10 Blood Culture - Preliminary Blood-Venous NO GROWTH AFTER 3 DAYS Lab Studies 05/13/18 05/12/18 05/12/18 Range/Units 05:15 08:55 05:00 pCO2 60 H (35-45) mm/Hg pO2 55.0 L (80-100) mm/Hg HCO3 41.7 H* (21-28) mmol/L ABG pH 7.45 (7.35-7.45) ABG Total CO2 43.5 H (22-28) mmol.L ABG O2 Saturation 91.0 L (95-98) % ABG O2 Content 12.8 L (15-23) ML/dl ABG Base Excess 15.4 H (-2.0-3.0) mmol/L ABG Hemoglobin 10.4 L (11.7-17.4) g/dL ABG Carboxyhemoglobin 2.9 H (0.5-1.5) % POC ABG HHb (Measured) 8.7 H (0-5) % ABG Methemoglobin 0.8 (0.0-3.0) % ABG O2 Capacity 14.1 L (16-24) mL/dl Hgb O2 Saturation 87.6 L (95.0-98.0) % FiO2 60.0 % POC Glucose (mg/dL) 283 H (65-110) mg/dL NT-Pro-B Natriuret Pep 9730 H (0-450) pg/mL 05/11/18 05/11/18 Range/Units 21:14 16:06 pCO2 (35-45) mm/Hg pO2 (80-100) mm/Hg HCO3 (21-28) mmol/L ABG pH (7.35-7.45) ABG Total CO2 (22-28) mmol.L ABG O2 Saturation (95-98) % ABG O2 Content (15-23) ML/dl ABG Base Excess (-2.0-3.0) mmol/L ABG Hemoglobin (11.7-17.4) g/dL ABG Carboxyhemoglobin (0.5-1.5) % POC ABG HHb (Measured) (0-5) % ABG Methemoglobin (0.0-3.0) % ABG O2 Capacity (16-24) mL/dl Hgb O2 Saturation (95.0-98.0) % FiO2 % POC Glucose (mg/dL) 277 H 210 H (65-110) mg/dL NT-Pro-B Natriuret Pep (0-450) pg/mL Laboratory Results - last 24 hr 05/11/18 05/11/18 05/12/18 16:06 21:14 05:00 pCO2 pO2 HCO3 ABG pH ABG Total CO2 ABG O2 Saturation ABG O2 Content ABG Base Excess ABG Hemoglobin ABG Carboxyhemoglobin POC ABG HHb (Measured) ABG Methemoglobin ABG O2 Capacity Hgb O2 Saturation FiO2 POC Glucose (mg/dL) 210 H 277 H NT-Pro-B Natriuret Pep 9730 H 05/12/18 05/13/18 08:55 05:15 pCO2 60 H pO2 55.0 L HCO3 41.7 H* ABG pH 7.45 ABG Total CO2 43.5 H ABG O2 Saturation 91.0 L ABG O2 Content 12.8 L ABG Base Excess 15.4 H ABG Hemoglobin 10.4 L ABG Carboxyhemoglobin 2.9 H POC ABG HHb (Measured) 8.7 H ABG Methemoglobin 0.8 ABG O2 Capacity 14.1 L Hgb O2 Saturation 87.6 L FiO2 60.0 POC Glucose (mg/dL) 283 H NT-Pro-B Natriuret Pep Radiology Impressions: Radiology Impressions Chest X-Ray 05/11/18 22:43 IMPRESSION: Interval worsening of reticular opacities at the right lower lobe since the prior study. Otherwise no significant changes. Chest X-Ray 05/12/18 08:00 IMPRESSION: Interval mild improvement in the lungs since the previous study. Persistent heterogeneous opacities and infiltrate at the right upper lobe. Chest X-Ray 05/12/18 09:10 IMPRESSION: Slight improvement in the left lower lobe since the previous exam. Otherwise no significant interval change. Appropriate position of the ETT and enteric tube. 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 Patient was diagnosed with sepsis 2/2 to HCAP. On 05/05, patient became hypoxia and was in respiratory distress. Patient subsequently intubated and sedated with propofol and versed. Will attempt sedation vacation today Plan: Neuro: S/p intubation for hypoxic repsiratory failure -Intubated on 05/05/18, currently sedated on precedix, will attempt sedation vacation today -Head CT w/o contrast on 05/10/18 showed no acute intracranial abnormalities -EEG on 05/11/18 showed abnormal EEG record that demonstrate the presence of moderate to severe non specific diffuse disturbance of cortical activity, findings are not specific. No seizures. Patient is not in status epilepticus. Cardio: Atrial flutter -EKG 05/10: Atrial flutter with 2:1 AV block with HR: 156 -currently rated controlled, on cardizem drip at 15mg/hr -given levophed at 4 mcg/hr overnight due to low BP -Cardizem 120 mg PO daily held - will consider restarting PO and reducing IV cardizem if HR controlled -Maintain MAP>65. NSTEMI -EKG 05/10: Atrial flutter with 2:1 AV block with HR: 156 -Troponin: 05/06/09 10.9, 9.66, 8.96, 6.33 -Continue Aspirin 81mg, topical nitroglycerin q6 -Continue Lovenox 60 mg Q12 Elevated BNP -BNP: 3240, BNP pending for today. Consider diastolic CHF -Echocardiogram 05/07: EF: 49.3%, trace AR, MR, RVSP: 50 -Continue fluid restriction, continue lasix drip at 2mg/hr -CXR today shows interval mild improvement in the lung reticular opacities from prior Pulm/Oncology Hypoxic respiratory failure / to ARDS from small cell lung carcinoma vs. pneumonitis -Patient intubated and sedated with settings 60%/12/18/400 -Maintain O2 saturation>92%. ABG 05/12 shows pH/pCO2/O2/bicarb 7.48/53/50/41 -As per Dr. Bullard, Heme/Onc, patient has possible pneumonitis as complication of Tecentriq treatment for SCLC -Treat Tecentriq side effect with solumedrol 60 mg Q6 -Recent PET CT shows improvement in small cell lung carcinoma -Weaning and sedation trials, Elevate bed to 30 degrees, oral protective hygiene daily, conservative fluid management COPD -Continue with Pulmicort 0.5 mg IH Q12, and xopenex 0.63 mg IH TID, solumedrol 60 mg Q6 ID: Multifocal pneumonia -CXR today shows interval mild improvement in the lung reticular opacities from prior -Chest CT 04/27: multifocal pneumonia -Afebrile, WBC is 11 from 16, downtrending -Blood culture was negative for 5 days upon admission from 05/05. Blood culture reordered was negative for 3 days. -Procal 05/05: 0.55. Repeat procal was 0.62 on 05/09/18 -Vancomycin 1 gm Q12 day 8, Merrem 1 gm Q8 day 8, Nystatin 5 mg QID -WBC is uptrending today, rectal tube ordered, C diff studies pending GI: Elevated LFTs -acute elevation today, consider dehydration vs congestive hepatopathy, will continue to trend Diet/PPX -continue jevity feedings, PPX with protonix /Nephro: -BUN/Cr stable, BUN slightly elevated today; will give 500cc NS bolus -Maintain euvolemia, replace e-lytes as necessary Endocrinology: -Random glucose: 200s, HgbA1c: 6.2, High dose sliding scale insulin, target g lucose 140-180 Heme Anemia -Hg is 10.4 today, no obvious source of bleeding, will monitor. DVT prophylaxis -Lovenox 60 mg Q12 as therapeutic anticoagulation for NSTEMI Disposition: Per families wishes, patient to remain full code. Patient seen and examined with Dr. Chan <Irma Chan - Last Filed: 05/13/18 15:23> CCU Objective - Vital Signs / Intake & Output Intake and Output (Last 8hrs): Intake & Output 05/13/18 05/13/18 05/13/18 06:59 14:59 22:59 Intake Total 2061 160 Output Total 800 Balance 1261 160 Weight 70.76 kg Intake: IV 941 160 Precedex 17 antibiotics 350 cardizem 60 lasix 24 Tube Feeding 720 Other 400 Output: Urine 800 Urethral (Yang) 800 Emesis 0 Oral Regurgitation 0 Other 0 Other: # Bowel Movements 2 - Medications Active Medications: Active Medications Generic Name Dose Route Start Last Admin Trade Name Freq PRN Reason Stop Dose Admin Acetaminophen 650 mg 05/10/18 20:29 05/10/18 20:55 Tylenol 650 Mg Supp RC 650 mg Q6H PRN Administration Fever >100.4 F Aspirin 81 mg 05/12/18 11:30 05/13/18 10:41 Aspirin Chewable PO 81 mg DAILY ZARI Administration Budesonide 0.5 mg 04/27/18 20:00 05/13/18 07:31 Pulmicort Respules IH 0.5 mg [id number] ZARI Administration Dextrose 0 ml 05/09/18 10:48 Dextrose 50% Inj IV STAT PRN Hypoglycemia Protocol Protocol Diltiazem HCl 120 mg 04/27/18 10:00 05/07/18 11:16 Cardizem Cd PO Not Given DAILY ZARI Enoxaparin Sodium 60 mg 05/07/18 10:15 05/13/18 10:46 Lovenox SC 60 mg Q12H ZARI Administration Protocol Hydromorphone HCl 0.5 mg 05/13/18 00:26 05/13/18 12:46 Dilaudid IVP 0.5 mg Q4H PRN Administration Pain, severe (8-10) Meropenem 1 gm in 50 mls @ 100 mls/hr 05/05/18 15:15 05/13/18 13:07 Merrem Iv 1 Gm Premix IVPB 100 mls/hr Q8 ZARI Administration Protocol Vancomycin HCl 1 gm in 250 mls @ 167 mls/hr 05/05/18 15:15 05/13/18 05:12 Vancomycin 1gm IVPB 167 mls/hr Q12H ZARI Administration Protocol Dexmedetomidine HCl 400 mcg in 100 mls @ 3.357 mls/hr 05/09/18 10:31 05/13/18 14:40 Precedex 400mcg/100ml IV 0.8 mcg/kg/hr .Q24H PRN 13.426 mls/hr Sedation Administration Protocol 0.2 MCG/KG/HR Dextrose 1,000 mls @ 0 mls/hr 05/09/18 10:48 Dextrose 5% In Water 1000 Ml IV .Q0M PRN Hypoglycemia Protocol Protocol Per Protocol Micafungin Sodium 100 mg/ 100 mls @ 100 mls/hr 05/10/18 13:15 05/13/18 10:41 Sodium Chloride IV 05/17/18 13:16 100 mls/hr DAILY ZARI Administration Protocol diltiaZEM IVPB 100mg in NS 100 mls @ 10 mls/hr 05/11/18 08:12 05/13/18 12:05 Cardizem 100mg In Ns IV 15 mg/hr .Q10H PRN 15 mls/hr TITRATE PER MD ORDER Administration Protocol 10 MG/HR NOREPINEPHRINE BIT/0.9 % NACL 4 mg in 250 mls @ 15 mls/hr 05/12/18 19:49 05/13/18 05:15 Levophed 4 Mg/ 250 Ml Ns Premixed IV 4 mcg/min .[id number] PRN 15 mls/hr TITRATE PER MD ORDER Administration Protocol 4 MCG/MIN Insulin Human Lispro 0 units 05/09/18 11:30 05/13/18 13:06 Humalog High SC 7 u ACHS ZARI Administration Protocol Levalbuterol HCl 0.63 mg 04/27/18 12:16 05/08/18 03:00 Xopenex IH 0.63 mg [id number] PRN Administration Shortness of Breath Levalbuterol HCl 0.63 mg 04/28/18 20:00 05/13/18 13:18 Xopenex IH 0.63 mg TIDRESP ZARI Administration Methylprednisolone 60 mg 05/11/18 10:01 05/13/18 10:45 Solu-Medrol IVP 60 mg Q6H ZARI Administration Pantoprazole Sodium 40 mg 05/02/18 21:00 05/08/18 05:00 Protonix Ec Tab PO 40 mg 0600 ZARI Administration Pantoprazole Sodium 40 mg 05/09/18 10:00 05/13/18 10:41 Protonix Inj IVP 40 mg DAILY ZARI Administration Sotalol HCl 40 mg 05/09/18 10:00 05/11/18 09:16 Betapace PO Not Given BID ZARI Verapamil HCl 40 mg 05/10/18 14:00 05/11/18 09:16 Calan Tab PO Not Given TID ZARI Verapamil HCl 2.5 mg 05/10/18 12:31 05/13/18 05:11 Verapamil Inj IVP 2.5 mg Q6 PRN Administration FOR HR GREATER THAN 130 - Patient Studies Lab Studies: Microbiology Studies 05/09/18 08:30 Blood Culture - Preliminary Blood-Venous NO GROWTH AFTER 4 DAYS 05/09/18 08:10 Blood Culture - Preliminary Blood-Venous NO GROWTH AFTER 4 DAYS 05/11/18 18:27 Gram Stain - Final Trachasp Lab Studies 05/13/18 05/13/18 05/13/18 Range/Units 14:44 11:15 06:00 WBC (4.5-11.0) 10^3/uL RBC (3.5-6.1) 10^6/uL Hgb (14.0-18.0) g/dL Hct (42.0-52.0) % MCV (80.0-105.0) fl MCH (25.0-35.0) pg MCHC (31.0-37.0) g/dl RDW (11.5-14.5) % Plt Count (120.0-450.0) 10^3/uL MPV (7.0-11.0) fl Neut % (Auto) (50.0-68.0) % Lymph % (Auto) (22.0-35.0) % Carroll % (Auto) (1.0-6.0) % Eos % (Auto) (1.5-5.0) % Baso % (Auto) (0.0-3.0) % Lymph # (Auto) (1.2-3.4) Carroll # (Auto) (0.1-0.6) Eos # (Auto) (0.0-0.7) Baso # (Auto) (0.0-2.0) K/mm3 Absolute Neuts (auto) (1.4-6.5) pCO2 55 H (35-45) mm/Hg pO2 75.0 L (80-100) mm/Hg HCO3 40.0 H (21-28) mmol/L ABG pH 7.47 H (7.35-7.45) ABG Total CO2 41.7 H (22-28) mmol.L ABG O2 Saturation 97.5 (95-98) % ABG O2 Content (15-23) ML/dl ABG Base Excess 13.8 H (-2.0-3.0) mmol/L ABG Hemoglobin (11.7-17.4) g/dL ABG Carboxyhemoglobin (0.5-1.5) % POC ABG HHb (Measured) (0-5) % ABG Methemoglobin (0.0-3.0) % ABG O2 Capacity (16-24) mL/dl ABG Potassium 3.9 (3.6-5.2) mmol/L Hgb O2 Saturation (95.0-98.0) % Glucose 315 H (75-110) mg/dl Lactate 3.3 H (0.7-2.1) mmol/L Mechanical Rate 18 FiO2 60.0 % Tidal Volume 400 PEEP 12 Crit Value Called To Crit Value Called By Ariel head Blood Gas Notified Time 1124 Sodium 152.0 H 148 (132-148) mmol/L Potassium 4.3 4.3 (3.6-5.0) mmol/L Chloride 114.0 H 107 (98-107) mmol/L Carbon Dioxide 41 H 39 H (21-33) mmol/L Anion Gap 6 L (10-20) BUN 65 H (7-21) mg/dL Creatinine 0.8 (0.8-1.5) mg/dl Est GFR ( Amer) > 60 Est GFR (Non-Af Amer) > 60 Random Glucose 356 H* D (70-110) mg/dL Calcium 7.5 L (8.4-10.5) mg/dL Total Bilirubin 0.7 (0.2-1.3) mg/dL AST 222 H D (17-59) U/L ALT 276 H (7-56) U/L Alkaline Phosphatase 236 H D (38-126) U/L Total Protein 5.5 L (5.8-8.3) g/dL Albumin 2.4 L (3.0-4.8) g/dL Globulin 3.1 gm/dL Albumin/Globulin Ratio 0.8 L (1.1-1.8) Arterial Blood Potassium 3.9 (3.6-5.2) mmol/L 05/13/18 05/13/18 Range/Units 06:00 05:15 WBC 18.3 H D (4.5-11.0) 10^3/uL RBC 3.64 (3.5-6.1) 10^6/uL Hgb 10.4 L (14.0-18.0) g/dL Hct 35.5 L (42.0-52.0) % MCV 97.5 (80.0-105.0) fl MCH 28.6 (25.0-35.0) pg MCHC 29.3 L (31.0-37.0) g/dl RDW 19.4 H (11.5-14.5) % Plt Count 136 (120.0-450.0) 10^3/uL MPV 11.2 H (7.0-11.0) fl Neut % (Auto) 90.2 H (50.0-68.0) % Lymph % (Auto) 5.6 L (22.0-35.0) % Carroll % (Auto) 4.1 (1.0-6.0) % Eos % (Auto) 0.0 L (1.5-5.0) % Baso % (Auto) 0.1 (0.0-3.0) % Lymph # (Auto) 1.0 L (1.2-3.4) Carroll # (Auto) 0.8 H (0.1-0.6) Eos # (Auto) 0.0 (0.0-0.7) Baso # (Auto) 0.02 (0.0-2.0) K/mm3 Absolute Neuts (auto) 16.53 H (1.4-6.5) pCO2 60 H (35-45) mm/Hg pO2 55.0 L (80-100) mm/Hg HCO3 41.7 H* (21-28) mmol/L ABG pH 7.45 (7.35-7.45) ABG Total CO2 43.5 H (22-28) mmol.L ABG O2 Saturation 91.0 L (95-98) % ABG O2 Content 12.8 L (15-23) ML/dl ABG Base Excess 15.4 H (-2.0-3.0) mmol/L ABG Hemoglobin 10.4 L (11.7-17.4) g/dL ABG Carboxyhemoglobin 2.9 H (0.5-1.5) % POC ABG HHb (Measured) 8.7 H (0-5) % ABG Methemoglobin 0.8 (0.0-3.0) % ABG O2 Capacity 14.1 L (16-24) mL/dl ABG Potassium (3.6-5.2) mmol/L Hgb O2 Saturation 87.6 L (95.0-98.0) % Glucose (75-110) mg/dl Lactate (0.7-2.1) mmol/L Mechanical Rate FiO2 60.0 % Tidal Volume PEEP Crit Value Called To Crit Value Called By Blood Gas Notified Time Sodium (132-148) mmol/L Potassium (3.6-5.0) mmol/L Chloride (98-107) mmol/L Carbon Dioxide (21-33) mmol/L Anion Gap (10-20) BUN (7-21) mg/dL Creatinine (0.8-1.5) mg/dl Est GFR ( Amer) Est GFR (Non-Af Amer) Random Glucose (70-110) mg/dL Calcium (8.4-10.5) mg/dL Total Bilirubin (0.2-1.3) mg/dL AST (17-59) U/L ALT (7-56) U/L Alkaline Phosphatase (38-126) U/L Total Protein (5.8-8.3) g/dL Albumin (3.0-4.8) g/dL Globulin gm/dL Albumin/Globulin Ratio (1.1-1.8) Arterial Blood Potassium (3.6-5.2) mmol/L Laboratory Results - last 24 hr 05/13/18 05/13/18 05/13/18 05:15 06:00 06:00 WBC 18.3 H D RBC 3.64 Hgb 10.4 L Hct 35.5 L MCV 97.5 MCH 28.6 MCHC 29.3 L RDW 19.4 H Plt Count 136 MPV 11.2 H Neut % (Auto) 90.2 H Lymph % (Auto) 5.6 L Carroll % (Auto) 4.1 Eos % (Auto) 0.0 L Baso % (Auto) 0.1 Lymph # (Auto) 1.0 L Carroll # (Auto) 0.8 H Eos # (Auto) 0.0 Baso # (Auto) 0.02 Absolute Neuts (auto) 16.53 H pCO2 60 H pO2 55.0 L HCO3 41.7 H* ABG pH 7.45 ABG Total CO2 43.5 H ABG O2 Saturation 91.0 L ABG O2 Content 12.8 L ABG Base Excess 15.4 H ABG Hemoglobin 10.4 L ABG Carboxyhemoglobin 2.9 H POC ABG HHb (Measured) 8.7 H ABG Methemoglobin 0.8 ABG O2 Capacity 14.1 L ABG Potassium Hgb O2 Saturation 87.6 L Glucose Lactate Mechanical Rate FiO2 60.0 Tidal Volume PEEP Crit Value Called To Crit Value Called By Blood Gas Notified Time Sodium 148 Potassium 4.3 Chloride 107 Carbon Dioxide 39 H Anion Gap 6 L BUN 65 H Creatinine 0.8 Est GFR ( Amer) > 60 Est GFR (Non-Af Amer) > 60 Random Glucose 356 H* D Calcium 7.5 L Total Bilirubin 0.7 AST 222 H D ALT 276 H Alkaline Phosphatase 236 H D Total Protein 5.5 L Albumin 2.4 L Globulin 3.1 Albumin/Globulin Ratio 0.8 L Arterial Blood Potassium 05/13/18 05/13/18 11:15 14:44 WBC RBC Hgb Hct MCV MCH MCHC RDW Plt Count MPV Neut % (Auto) Lymph % (Auto) Carroll % (Auto) Eos % (Auto) Baso % (Auto) Lymph # (Auto) Carroll # (Auto) Eos # (Auto) Baso # (Auto) Absolute Neuts (auto) pCO2 55 H pO2 75.0 L HCO3 40.0 H ABG pH 7.47 H ABG Total CO2 41.7 H ABG O2 Saturation 97.5 ABG O2 Content ABG Base Excess 13.8 H ABG Hemoglobin ABG Carboxyhemoglobin POC ABG HHb (Measured) ABG Methemoglobin ABG O2 Capacity ABG Potassium 3.9 Hgb O2 Saturation Glucose 315 H Lactate 3.3 H Mechanical Rate 18 FiO2 60.0 Tidal Volume 400 PEEP 12 Crit Value Called To Crit Value Called By Ariel head Blood Gas Notified Time 1124 Sodium 152.0 H Potassium 4.3 Chloride 114.0 H Carbon Dioxide 41 H Anion Gap BUN Creatinine Est GFR ( Amer) Est GFR (Non-Af Amer) Random Glucose Calcium Total Bilirubin AST ALT Alkaline Phosphatase Total Protein Albumin Globulin Albumin/Globulin Ratio Arterial Blood Potassium 3.9 Radiology Impressions: Radiology Impressions Chest X-Ray 05/13/18 05:00 IMPRESSION: Interval improvement in the lung reticular opacities and consolidation since the previous exam. Critical Care Progress Note - Nutrition Nutrition: Nutrition Category Date Time Status NPO Diet [DIET] Diets 05/06/18 Breakfast Ordered Addendum Addendum: 05/13/18 15:21 MICU Attending Addendum: Patient seen and examined with housestaff. 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 Overnight pt beccame hypotensive, fever of 102 wbc rising start on levophed Likely he is intravascularly dry given his rising BUN/CR ratio (pre-renal) and rising bicarb causing a contraction alkalosis. Must also consider sepsis despite being on broad spectrum abx and fungal will lopez -culture d/c lasix bolus 500cc for now cont tube feeds His hypoxia may be more from inflamm causes rather than cardiogenic pulm edema. On steroids for possible pneumonitis. Cont abx as per ID as well. cardio on board managing his Afib on lovenox for anticoag on sotatol and cardizem drip Rest of care as above Irma Chan MD MICU Attending CC Time 33 mins
[2018-05-13] MEDS: Budesonide 0.5 mg/2 ml Inhal Susp UD IH SCH ×2 (07:31→20:00)
[2018-05-13] MEDS: Levalbuterol 0.63 MG/3 ML Inhal Soln UD IH SCH ×3 (07:31→20:00)
[2018-05-13 07:37] LABS: BASO # 0.02 K/mm3 (0.0-2.0); BASO % 0.1 % (0.0-3.0); HEMOGLOBIN 10.4 g/dL (14.0-18.0); LYMPH % 5.6 % (22.0-35.0); MEAN CELL VOLUME 97.5 fl (80.0-105.0); MEAN CORPUSCULAR HEMOGLOBIN 28.6 pg (25.0-35.0); MEAN CORPUSCULAR HGB CONC 29.3 g/dl (31.0-37.0); MEAN PLATELET VOLUME 11.2 fl (7.0-11.0); MONO # 0.8 (0.1-0.6); MONO % 4.1 % (1.0-6.0); RBC 3.64 10^6/uL (3.5-6.1); RED CELL DISTRIBUTION WIDTH 19.4 % (11.5-14.5); WHITE BLOOD COUNT 18.3 10^3/uL (4.5-11.0)
[2018-05-13 08:11] LABS: ALB/GLOB RATIO 0.8 (1.1-1.8); ALBUMIN 2.4 g/dL (3.0-4.8); ALT/SGPT 276 U/L (7-56); AST/SGOT 222 U/L (17-59); BLOOD UREA NITROGEN 65 mg/dL (7-21); CALCIUM 7.5 mg/dL (8.4-10.5); GFR NON-AFRICAN AMERICAN > 60
[2018-05-13] MEDS: Insulin Lispro (HUMAlog) HIGH Coverage SC SCH ×4 (08:42→22:00)
--- NOTE | 2018-05-13 09:57 | PN ---
DATE: 05/13/2018 PULMONARY CRITICAL CARE PROGRESS NOTE REFERRING PHYSICIAN: Erasmo Briggs MD SUBJECTIVE: The patient remains sedated and intubated. Rectal tube above to be placed. Per nursing staff, the patient is having multiple episodes of loose stool. Heart rate was uncontrolled this morning in 150s, 160s, the patient was given Cardizem and Levophed. The patient currently on Cardizem, Levophed, Precedex and Lasix. OBJECTIVE: GENERAL: Intubated and sedated. VITAL SIGNS: Pulse 87, blood pressure 127/68, temperature 96.1, oxygen saturation 99%. HEENT: Nasogastric tube in place. Endotracheal tube in place. NECK: Supple. No JVD. RESPIRATORY: Fair airflow bilaterally. CARDIOVASCULAR: S1, S2. ABDOMEN: Soft. No distention. EXTREMITIES: Bilateral upper and lower extremity edema. NEUROLOGIC: Intubated and sedated. MEDICATIONS: Tylenol 650 mg rectally every 6 hours p.r.n. fever greater than 100.4, aspirin 81 mg daily, Pulmicort 0.5 mg inhalation every 12 hours, Precedex 400 mcg every 24 hours p.r.n., dextrose p.r.n. 1000 mL, Cardizem 120 mg daily, Cardizem 100 mg at 10 mL per hour every 10 hours p.r.n. Lovenox 60 mg subcutaneously every 12 hours, furosemide 100 mg at 2 mL per hour every 24 hours, Dilaudid 0.5 mg IV push every 4 hours p.r.n., Humalog siding scale a.c. and at bedtime, Xopenex 0.63 mg inhalation every 6 hours p.r.n., Xopenex 0.63 mg inhalation 3 times a day, meropenem 1 g every 8 hours, Solu-Medrol 60 mg every 6 hours, micafungin 100 mg daily, Levophed 4 mg p.r.n., Protonix 40 mg daily, sotalol 40 mg twice a day, vancomycin 1 g every 12 hours, verapamil 2.5 mg every 6 hours p.r.n. and verapamil 40 mg 3 times a day. LABORATORY DATA: Reviewed. WBC 18.3, RBC 3.64, hemoglobin 10.4, hematocrit 35.5, and platelets 136. PCO2 of 60, pO2 of 55, HCO3 of 41.7. ABG pH 7.45 and FIO2 of 60. Sodium 148, potassium 4.3, chloride 107, carbon dioxide 39, anion gap 6, BUN 65, creatinine 0.8, GFR greater than 60, random glucose 356, calcium 7.5, total bilirubin 0.7, AST 222, ALT 276, alkaline phosphatase 236, total protein 5.5, albumin 2.4, globulin 3.1 and albumin-globulin ratio 0.8. Blood cultures preliminary, no growth after 3 days. Trach sputum culture pending. Chest x-ray report pending. 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 Continue antibiotics. Continue pressors, steroids, and inhaled bronchodilators. Maintain oxygen saturation 92% or better. The patient has poor prognosis. We will discuss the case with other specialities. We will repeat chest x-ray, labs, ABGs in the morning. We will order stool for Clostridium difficile due to loose stool. Critical care time spent more than 35 minutes. The patient was seen and examined with Dr. Yi. Discussed assessment and plan as described above. Thank you for this consult. We will follow with you. Juan Carlos Paul APN Aura Yi MD RODRICK
[2018-05-13] MEDS: Micafungin 100 MG in Sodium Chloride 0.9% 100 ML IV SCH (10:41)
[2018-05-13] MEDS: Enoxaparin 60 mg Syringe SC SCH ×2 (10:46→21:38)
[2018-05-13 11:25] LABS: ARTERIAL BLOOD GAS O2 SAT 97.5 % (95-98); ARTERIAL BLOOD GAS PCO2 55 mm/Hg (35-45); ARTERIAL BLOOD GAS PH 7.47 (7.35-7.45); ARTERIAL BLOOD GAS TCO2 41.7 mmol.L (22-28)
[2018-05-13] MEDS: diltiaZEM IVPB 100mg in NS 100 ML IV PRN ×2 (12:05→18:16)
--- NOTE | 2018-05-13 12:07 | PN ---
DATE: 05/13/2018 SUBJECTIVE: The patient is in bed, overall in poor condition. Continues to deteriorate and remains intubated on a ventilator. OBJECTIVE: VITAL SIGNS: Temperature at 95.9, heart rate of 80, blood pressure is 120/60, respiratory rate on a vent. HEENT: ET-tube in place. NECK: Supple. LUNGS: Have decreased breath sounds. HEART: Normal S1, S2. ABDOMEN: Soft, nontender. LABORATORY EXAMINATION: Reveals a white count of 18,300, hemoglobin of 10, platelets of 136. BUN of 65, creatinine 0.8. AST is 222, ALT is 276, alk phos is 236. The patient's procalcitonin is 0.62. Microbiology reveals the sputum culture is pending. The blood cultures are negative. Review of orders reveals the patient to be on meropenem, Solu-Medrol, micafungin, vancomycin. The patient had a chest x-ray this morning, results are not available. Yesterday's chest x-ray is reviewed. ASSESSMENT AND PLAN: This is a 77-year-old male with a new onset of hypoxic respiratory failure, ventilator-dependent respiratory failure, severe sepsis, hospital-acquired pneumonia in face of small cell lung cancer stage IV, status post chemotherapy and radiation, chronic obstructive lung disease, atrial fibrillation, gastritis . The patient is on vancomycin, meropenem, Solu-Medrol, and Mycamine day #8. Had received 5 days of Tamiflu. The patient is chronically ill, cachectic with wasting syndrome, temporal wasting, end-stage lung cancer, should consider a hospice setting for this patient who is end-stage. Chon Guerra MD
--- NOTE | 2018-05-13 13:01 | RAD ---
Date of service: 05/13/2018 HISTORY: evaluate congestion COMPARISON: Comparison is made with 05/12/2018 FINDINGS: LUNGS: Interval improvement in the lungs including partial resolving of the right upper lobe consolidation and infiltrates. The ET tube is seen at appropriate position. PLEURA: Blunting of the right costophrenic angle suggestive of small pleural effusion CARDIOVASCULAR: No aortic atherosclerotic calcification present. Normal cardiac size. [id number] pulmonary vascular congestion. OSSEOUS STRUCTURES: No significant abnormalities. VISUALIZED UPPER ABDOMEN: The NG tube seen extending to the abdomen. OTHER FINDINGS: Right-sided Infusaport is seen in place. IMPRESSION: Interval improvement in the lung reticular opacities and consolidation since the previous exam.
[2018-05-13] MEDS ORDERED: Sodium Chloride 0.9% 500 ML IV STA ×3 (13:18→19:10)
--- NOTE | 2018-05-13 14:35 | PN ---
DATE: 05/13/2018 REASON FOR CONSULT AT FOLLOWUP: Status post respiratory failure; [id number] myocardial infarction; lung CA with metastasis; atrial fibrillation with rapid rate, now converted to normal sinus; on Cardizem drip, on vent and sedated. SUBJECTIVE: The patient remains on vent, sedated. OBJECTIVE: GENERAL: On Cardizem drip and sedation IV, propofol, and midazolam. VITAL SIGNS: Temperature afebrile, heart rate 87, and blood pressure 127/68. HEENT: PERRLA. Extraocular muscles intact. NECK: Supple. No carotid bruits or thyromegaly. CHEST: Clear to auscultation. HEART: S1 and S2 regular. ABDOMEN: Soft. EXTREMITIES: Clubbing and cyanosis negative. LABORATORY DATA: WBC 18.3, hemoglobin 10.4, hematocrit 35.5, and platelet count 136. Chemistry shows sodium 130, potassium 4.3, chloride 107, carbon dioxide 39, anion gap of 6, BUN 65, and creatinine 0.8. IMPRESSION: A 77-year-old male with a past medical history significant for lung cancer, admitted initially with history of paroxysmal atrial fibrillation, on sotalol and anticoagulation. The patient was on the floor, went in respiratory distress, intubated since the patient remained on vent, unable to extubate, went into atrial fibrillation flutter with rapid rate, now converted to normal sinus; was initially on Cardizem and verapamil, now on IV Cardizem 15 mg an hour normal sinus, being fed through the nasogastric tube, on vent. RECOMMENDATIONS: Continue weight management. If the patient remains stable, we will start p.o. Cardizem from tomorrow and try to wean off the Cardizem. Continue antibiotic therapy. Continue subcutaneous enoxaparin. Overall, the patient's condition is critical. Long-term prognosis is guarded. Verapamil and sotalol p.o. on hold. Monitor electrolytes closely. We will follow with you. From tomorrow, if he remains stable, we will change Cardizem to p.o. Aura Orozco MD [facility] # [id number]
[2018-05-13 15:21] LABS: ALB/GLOB RATIO 0.8 (1.1-1.8); ALT/SGPT 240 U/L (7-56); AST/SGOT 112 U/L (17-59); BLOOD UREA NITROGEN 60 mg/dL (7-21); GFR NON-AFRICAN AMERICAN > 60
[2018-05-13 17:38] LABS: ARTERIAL BLOOD GAS HCO3 40.9 mmol/L (21-28); ARTERIAL BLOOD GAS O2 SAT 86.3 % (95-98); ARTERIAL BLOOD GAS PCO2 63 mm/Hg (35-45); ARTERIAL BLOOD GAS PH 7.42 (7.35-7.45); ARTERIAL BLOOD GAS TCO2 42.8 mmol.L (22-28)
[2018-05-13 22:49] LABS: VENOUS BLOOD GAS BASE EXCESS 13.8 mmol/L (0.0-2.0); VENOUS BLOOD GAS PO2 50 mm/Hg (30-55); VENOUS BLOOD PH 7.36 (7.32-7.43)
[2018-05-14] MEDS: diltiaZEM IVPB 100mg in NS 100 ML IV PRN ×2 (02:14→09:03)
[2018-05-14] MEDS: Dexmedetomidine 400mcg/100mL 400 MCG/100 ML BOTTLE IV PRN ×4 (03:26→18:17)
[2018-05-14] MEDS: Vancomycin 1gm in NS 250ml 1 GM/250 ML BAG IVPB SCH ×2 (03:38→15:22)
[2018-05-14] MEDS: MethylPREDNISolone 40 mg Vial IVP SCH ×4 (03:39→21:24)
[2018-05-14 05:33] LABS: ARTERIAL BLOOD GAS HCO3 37.5 mmol/L (21-28); ARTERIAL BLOOD GAS HEMOGLOBIN 9.2 g/dL (11.7-17.4); ARTERIAL BLOOD GAS O2 CAPACITY 12.4 mL/dl (16-24); ARTERIAL BLOOD GAS O2 CONTENT 11.9 ML/dl (15-23); ARTERIAL BLOOD GAS O2 SAT 95.6 % (95-98); ARTERIAL BLOOD GAS PCO2 54 mm/Hg (35-45); ARTERIAL BLOOD GAS PH 7.45 (7.35-7.45); ARTERIAL BLOOD GAS TCO2 39.2 mmol.L (22-28)
[2018-05-14] MEDS: Meropenem IV 1 gm in NS 1 GM/50 ML BAG IVPB SCH ×3 (06:32→21:27)
[2018-05-14 07:08] LABS: BASO # 0.02 K/mm3 (0.0-2.0); BASO % 0.1 % (0.0-3.0); HEMOGLOBIN 9.4 g/dL (14.0-18.0); LYMPH # 0.5 (1.2-3.4); LYMPH % 2.9 % (22.0-35.0); MEAN CORPUSCULAR HEMOGLOBIN 28.1 pg (25.0-35.0); MEAN CORPUSCULAR HGB CONC 28.1 g/dl (31.0-37.0); MEAN PLATELET VOLUME 11.6 fl (7.0-11.0); MONO # 1.2 (0.1-0.6); MONO % 7.2 % (1.0-6.0); PLATELET COUNT 110 10^3/uL (120.0-450.0); RBC 3.35 10^6/uL (3.5-6.1); RED CELL DISTRIBUTION WIDTH 19.8 % (11.5-14.5); WHITE BLOOD COUNT 17.2 10^3/uL (4.5-11.0)
[2018-05-14 07:13] LABS: VENOUS BLOOD GAS BASE EXCESS 13.5 mmol/L (0.0-2.0); VENOUS BLOOD GAS PO2 38 mm/Hg (30-55); VENOUS BLOOD PH 7.41 (7.32-7.43)
[2018-05-14] MEDS: Levalbuterol 0.63 MG/3 ML Inhal Soln UD IH SCH ×3 (07:24→20:46)
[2018-05-14] MEDS: Budesonide 0.5 mg/2 ml Inhal Susp UD IH SCH ×2 (07:24→20:46)
--- NOTE | 2018-05-14 07:27 | RAD ---
Date of service: 05/14/2018 HISTORY: evaluate congestion COMPARISON: Portable chest 05/13/2017. FINDINGS: LUNGS: MediPort, nasogastric and endotracheal tubes are unchanged in position. Increase patchy density seen at the right perihilar space with limited residual at the medial right upper lobe. Linear atelectasis identified in the medial right base. Patchy density is question in the retrocardiac space in the interval. PLEURA: Limited right pleural effusion remains. None is seen the left. No pneumothorax bilaterally. CARDIOVASCULAR: No aortic atherosclerotic calcification present. Normal cardiac size. Ygud-je-svcjwheh pulmonary vascular congestion remains unchanged. OSSEOUS STRUCTURES: No significant abnormalities. VISUALIZED UPPER ABDOMEN: Normal. OTHER FINDINGS: None. IMPRESSION: Persistent dgdz-uv-yfqpdnvo pulmonary vascular congestion with increased limited patchy infiltrate right perihilar region. Limited patchy density seen the right apex and retrocardiac left base. Trace right pleural effusion remains.
[2018-05-14 07:41] LABS: ALB/GLOB RATIO 0.8 (1.1-1.8); ALBUMIN 2.2 g/dL (3.0-4.8); ALT/SGPT 403 U/L (7-56); AST/SGOT 365 U/L (17-59); BLOOD UREA NITROGEN 61 mg/dL (7-21); CALCIUM 7.5 mg/dL (8.4-10.5); GFR NON-AFRICAN AMERICAN > 60
[2018-05-14] MEDS: Insulin Lispro (HUMAlog) HIGH Coverage SC SCH ×4 (07:45→21:24)
--- NOTE | 2018-05-14 07:49 | CP.PCM.PN ---
<Anthony Chong - Last Filed: 05/14/18 07:46> Subjective - Date & Time of Evaluation Date of Evaluation: 05/14/18 Time of Evaluation: 07:46 - Subjective Subjective: PGY-2 heme/onc progress note Patient had a fever of 101 overnight. Currently patient is sedated on precedex drip - responsive only to deep painful stimuli. He is also on a cardizem and levophed drip. ROS are not obtainable. Objective - Vital Signs/Intake and Output Vital Signs (last 24 hours): Temp Pulse Resp BP Pulse Ox 97.7 F 124 H 28 H 99/55 L 95 05/14/18 03:54 05/14/18 06:00 05/11/18 07:23 05/14/18 03:37 05/14/18 03:37 Intake and Output: 05/14/18 05/14/18 06:59 18:59 Intake Total 2533 Output Total 700 Balance 1833 - Medications Medications: Current Medications Acetaminophen (Tylenol 650 Mg Supp) 650 mg RC Q6H PRN PRN Reason: Fever >100.4 F Last Admin: 05/10/18 20:55 Dose: 650 mg Aspirin (Aspirin Chewable) 81 mg PO DAILY [facility] Last Admin: 05/13/18 10:41 Dose: 81 mg Budesonide (Pulmicort Respules) 0.5 mg IH [id number] [facility] Last Admin: 05/14/18 07:24 Dose: 0.5 mg Dextrose (Dextrose 50% Inj) 0 ml IV STAT PRN; Protocol PRN Reason: Hypoglycemia Protocol Diltiazem HCl (Cardizem Cd) 120 mg PO DAILY [facility] Last Admin: 05/07/18 11:16 Dose: Not Given Enoxaparin Sodium (Lovenox) 60 mg SC Q12H ZARI; Protocol Last Admin: 05/13/18 21:38 Dose: 60 mg Hydromorphone HCl (Dilaudid) 0.5 mg IVP Q4H PRN PRN Reason: Pain, severe (8-10) Last Admin: 05/13/18 12:46 Dose: 0.5 mg Meropenem (Merrem Iv 1 Gm Premix) 1 gm in 50 mls @ 100 mls/hr IVPB Q8 ZARI; Protocol Last Admin: 05/14/18 06:32 Dose: 100 mls/hr Vancomycin HCl (Vancomycin 1gm) 1 gm in 250 mls @ 167 mls/hr IVPB Q12H ZARI; Protocol Last Admin: 05/14/18 03:38 Dose: 167 mls/hr Dexmedetomidine HCl (Precedex 400mcg/100ml) 400 mcg in 100 mls @ 3.357 mls/hr IV .Q24H PRN; Protocol PRN Reason: Sedation Last Admin: 05/14/18 03:26 Dose: 0.8 mcg/kg/hr, 13.426 mls/hr Dextrose (Dextrose 5% In Water 1000 Ml) 1,000 mls @ 0 mls/hr IV .Q0M PRN; Protocol PRN Reason: Hypoglycemia Protocol Micafungin Sodium 100 mg/ (Sodium Chloride) 100 mls @ 100 mls/hr IV DAILY ZARI; Protocol Stop: 05/17/18 13:16 Last Admin: 05/13/18 10:41 Dose: 100 mls/hr diltiaZEM IVPB 100mg in NS (Cardizem 100mg In Ns) 100 mls @ 10 mls/hr IV .Q10H PRN; Protocol PRN Reason: TITRATE PER MD ORDER Last Titration: 05/14/18 05:00 Dose: 15 mg/hr, 15 mls/hr NOREPINEPHRINE BIT/0.9 % NACL (Levophed 4 Mg/ 250 Ml Ns Premixed) 4 mg in 250 mls @ 15 mls/hr IV .[id number] PRN; Protocol PRN Reason: TITRATE PER MD ORDER Last Titration: 05/13/18 12:00 Dose: 0 mcg/min, 0 mls/hr Insulin Human Lispro (Humalog High) 0 units SC ACHS ZARI; Protocol Last Admin: 05/13/18 22:00 Dose: Not Given Levalbuterol HCl (Xopenex) 0.63 mg IH [id number] PRN PRN Reason: Shortness of Breath Last Admin: 05/08/18 03:00 Dose: 0.63 mg Levalbuterol HCl (Xopenex) 0.63 mg IH TIDRESP ZARI Last Admin: 05/14/18 07:24 Dose: 0.63 mg Methylprednisolone (Solu-Medrol) 60 mg IVP Q6H ZARI Last Admin: 05/14/18 03:39 Dose: 60 mg Pantoprazole Sodium (Protonix Ec Tab) 40 mg PO 0600 [facility] Last Admin: 05/08/18 05:00 Dose: 40 mg Pantoprazole Sodium (Protonix Inj) 40 mg IVP DAILY [facility] Last Admin: 05/13/18 10:41 Dose: 40 mg Sotalol HCl (Betapace) 40 mg PO BID [facility] Last Admin: 05/11/18 09:16 Dose: Not Given Verapamil HCl (Calan Tab) 40 mg PO TID [facility] Last Admin: 05/11/18 09:16 Dose: Not Given Verapamil HCl (Verapamil Inj) 2.5 mg IVP Q6 PRN PRN Reason: FOR HR GREATER THAN 130 Last Admin: 05/13/18 05:11 Dose: 2.5 mg - Labs Labs: 05/14/18 06:30 05/14/18 06:30 PT 25.7 SECONDS (9.4-12.5) H 05/07/18 06:30 INR 2.20 05/07/18 06:30 APTT 25.5 Seconds (25.1-36.5) 05/07/18 06:30 - Additional Findings Additional findings: - Constitutional Appears: Cachectic, Chronically Ill - Head Exam Head Exam: ATRAUMATIC, NORMAL INSPECTION - Eye Exam Eye Exam: EOMI, Normal appearance, PERRL. absent: Scleral icterus - ENT Exam ENT Exam: Mucous Membranes Moist - Respiratory Exam Respiratory Exam: Decreased Breath Sounds, NORMAL BREATHING PATTERN. absent: Clear to Ausculation Bilateral - Cardiovascular Exam Cardiovascular Exam: Tachycardia, REGULAR RHYTHM, +S1, +S2. absent: Murmur - GI/Abdominal Exam GI & Abdominal Exam: Soft, Normal Bowel Sounds. 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 Patient was diagnosed with sepsis 2/2 to HCAP. On 05/05, patient became hypoxia and was in respiratory distress. Patient was intubated and sedated with propofol and versed. #History of small cell lung cancer stage 4 on radiation and chemotherapy -progression of disease from metastatic cancer vs aspiration pneumonia vs hospital-acquired pneumonic process in immuocompromised patient currently on systemic chemotherapy, completed six cycles of carboplatin and etoposide and then maintained on Tecentriq and also iridium, which is the bisphosphonate for metastatic disease in the bone -currently on Tecentriq * Tecentriq - 47% association with pneumonitis as complication of treatment * should improve on steroids - on methyprednisolone 40mg ivp q12h -most recent PET CT scan ~3 weeks ago showed dramatic improvement in his disease -currently intubated and sedated - continue to maintain oxygen saturation and continue steroids - if condition does not improve in next 24 hours we will plan on supportive care alone -EEG - moderate to severe non-specific diffuse disturbance of cortical activity, no seizures, patient not in status epilepticus #SIRS, consider sepsis due to multifocal HCAP -CT of chest showed multifocal pneumonia. Patient completed 7 days of merrem and doxycycline on the floors. Now on vancomycin 1g q12h and merrem 1g q8h which has been stopped. He is currently not on any abx. ID Dr Urrutia has been consulted. -blood cx and flu negative #History of atrial fibrillation #NSTEMI -He released troponins, he also has AFib with RVR - he is on lovenox 60mg ivp q12h - his home eliquis 5mg bid is on hold, he is also receiving aspirin 300mg rectally, he is on sotalol 40mg po bid, his cardizem is currently being held. He is currently on amio drip. He is currently on verapmail 40mg po tid and verapil 2.5mg ivp q6h prn. He is on lasix 40mg iv bid. Cardio Dr Orozco is consulted. #COPD -Per pulm recommendation - continue pulmicort 0.5mg ih q12h and xopenex 0.63mg ih q6h prn and scheduled. Seen and discussed with Dr Bullard <Anu Bullard - Last Filed: 05/18/18 21:59> Objective - Vital Signs/Intake and Output Vital Signs (last 24 hours): Temp Pulse Resp BP Pulse Ox 97.5 F L 65 21 95/45 L 100 05/18/18 14:00 05/18/18 18:00 05/16/18 07:03 05/18/18 13:59 05/18/18 14:00 Intake and Output: 05/18/18 05/19/18 18:59 06:59 Intake Total 2824 Balance 2824 - Medications Medications: Current Medications Acetaminophen (Tylenol 650 Mg Supp) 650 mg RC Q6H PRN PRN Reason: Fever >100.4 F Last Admin: 05/10/18 20:55 Dose: 650 mg Acetaminophen (Tylenol 650mg/20.3ml Solution Ud) 650 mg NG Q6H PRN PRN Reason: FEVER > 100.4 Last Admin: 05/14/18 09:29 Dose: 650 mg Aspirin (Aspirin Chewable) 81 mg PO DAILY [facility] Last Admin: 05/18/18 10:38 Dose: 81 mg Budesonide (Pulmicort Respules) 0.5 mg IH [id number] [facility] Last Admin: 05/18/18 19:43 Dose: 0.5 mg Dextrose (Dextrose 50% Inj) 0 ml IV STAT PRN; Protocol PRN Reason: Hypoglycemia Protocol Dextrose (Dextrose 50% Inj) 0 ml IV STAT PRN; Protocol PRN Reason: Hypoglycemia Protocol Diltiazem HCl (Cardizem Cd) 120 mg PO DAILY [facility] Last Admin: 05/07/18 11:16 Dose: Not Given Hydromorphone HCl (Dilaudid) 0.5 mg IVP Q4H PRN PRN Reason: Pain, severe (8-10) Last Admin: 05/18/18 06:32 Dose: 0.5 mg Meropenem (Merrem Iv 1 Gm Premix) 1 gm in 50 mls @ 100 mls/hr IVPB Q8 ZARI; Protocol Last Admin: 05/18/18 14:38 Dose: 100 mls/hr Dexmedetomidine HCl (Precedex 400mcg/100ml) 400 mcg in 100 mls @ 3.357 mls/hr IV .Q24H PRN; Protocol PRN Reason: Sedation Last Titration: 05/17/18 22:54 Dose: 0 mcg/kg/hr, 0 mls/hr Dextrose (Dextrose 5% In Water 1000 Ml) 1,000 mls @ 0 mls/hr IV .Q0M PRN; Protocol PRN Reason: Hypoglycemia Protocol Fentanyl Citrate (Fentanyl Citrate/Sodium Chloride 1 Mg/100 Ml) 1,000 mcg in 100 mls @ 2 mls/hr IV .Q24H PRN; Protocol PRN Reason: TITRATE PER MD ORDER Last Admin: 05/18/18 11:26 Dose: 70 mcg/hr, 7 mls/hr Dextrose (Dextrose 5% In Water 1000 Ml) 1,000 mls @ 0 mls/hr IV .Q0M PRN; Protocol PRN Reason: Hypoglycemia Protocol Insulin Human Lispro (Humalog High) 0 units SC Q6 ZARI; Protocol Last Admin: 05/18/18 16:45 Dose: 7 unit Levalbuterol HCl (Xopenex) 0.63 mg IH [id number] PRN PRN Reason: Shortness of Breath Last Admin: 05/15/18 02:05 Dose: 0.63 mg Levalbuterol HCl (Xopenex) 0.63 mg IH TIDRESP [facility] Last Admin: 05/18/18 19:43 Dose: 0.63 mg Methylprednisolone (Solu-Medrol) 20 mg IVP Q12 [facility]I Pantoprazole Sodium (Protonix Inj) 40 mg IVP DAILY [facility] Last Admin: 05/18/18 10:38 Dose: 40 mg Propranolol HCl (Inderal) 20 mg PO Q6H ZARI Last Admin: 05/18/18 16:44 Dose: 20 mg Sotalol HCl (Betapace) 40 mg PO BID [facility] Last Admin: 05/11/18 09:16 Dose: Not Given Verapamil HCl (Calan Tab) 40 mg PO TID [facility] Last Admin: 05/11/18 09:16 Dose: Not Given Verapamil HCl (Verapamil Inj) 2.5 mg IVP Q6 PRN PRN Reason: FOR HR GREATER THAN 130 Last Admin: 05/17/18 13:34 Dose: 2.5 mg - Labs Labs: 05/18/18 05:40 05/18/18 05:40 PT 14.0 SECONDS (9.4-12.5) H 05/15/18 20:43 INR 1.26 05/15/18 20:43 APTT 30.5 Seconds (26.9-38.3) 05/15/18 20:43 Attending/Attestation - Attestation I have personally seen and examined this patient.: Yes I have fully participated in the care of the patient.: Yes I have reviewed all pertinent clinical information, including history, physical exam and plan: Yes
[2018-05-14 08:29] LABS: LYMPHOCYTE 6 % (22.0-35.0); MONOCYTE 1 % (1.0-6.0); NEUTROPHIL 93 % (50.0-70.0); PLATELET ESTIMATE LOW (NORMAL)
[2018-05-14] MEDS ORDERED: Albumin Human 25% (12.5 gm/50 ml) IV ONE ×4 (08:41→09:30)
[2018-05-14] MEDS ORDERED: Albumin Human 25% (12.5 gm/50 ml) IV SCH ×2 (08:45→14:00)
[2018-05-14] MEDS ORDERED: Acetaminophen 650mg/20.3ml solution UD NG PRN (09:13)
[2018-05-14 09:27] LABS: ARTERIAL BLOOD GAS HCO3 36.8 mmol/L (21-28); ARTERIAL BLOOD GAS HEMOGLOBIN 9.8 g/dL (11.7-17.4); ARTERIAL BLOOD GAS O2 CAPACITY 13.3 mL/dl (16-24); ARTERIAL BLOOD GAS O2 CONTENT 12.7 ML/dl (15-23); ARTERIAL BLOOD GAS O2 SAT 95.8 % (95-98); ARTERIAL BLOOD GAS PCO2 53 mm/Hg (35-45); ARTERIAL BLOOD GAS PH 7.45 (7.35-7.45); ARTERIAL BLOOD GAS TCO2 38.4 mmol.L (22-28)
[2018-05-14] MEDS: Enoxaparin 60 mg Syringe SC SCH ×2 (09:31→21:24)
--- NOTE | 2018-05-14 09:31 | CP.CCUPN ---
<Haley Mckeon - Last Filed: 05/14/18 11:46> CCU Subjective - Physician Review Subjective (Free Text): Haley Mckeon, PGY-1, ICU Progress Note for Dr. Gtz Patient seen and evaluated at bedside. Patient is currently on cardizem drip at 15 cc/hr. Precedex was increased to 0.8 overnight. Patient is currently intubated and sedated with vent settings of 400/18/12/70%, but has been overbreathing the ventilator with a respiratory rate of 35. CCU Objective - Vital Signs / Intake & Output Vital Signs (Last 4 hours): Vital Signs Temp Pulse Resp BP Pulse Ox 05/14/18 08:00 99.9 F H 83 24 97 05/14/18 06:17 99.0 F 119 H 108/54 L 95 05/14/18 06:00 99.0 F 157 H 94 L 05/14/18 05:51 99.0 F 108 H Intake and Output (Last 8hrs): Intake & Output 05/13/18 05/14/18 05/14/18 22:59 06:59 14:59 Intake Total 1510 2393 58 Output Total 1850 700 Balance -340 1693 58 Weight 159 lb 12.8 oz Intake: IV 1510 873 58 Left 500 Precedex 160 161 antibiotics 450 350 cardizem 160 160 Tube Feeding 720 Other 800 Output: Urine 1850 700 Urethral (Yang) 1850 700 - Physical Exam Head: Positive for: Atraumatic, Normocephalic Pupils: Positive for: PERRL Extroacular Muscles: Positive for: EOMI Conjunctiva: Positive for: Normal Mouth: Positive for: Moist Mucous Membranes Neck: Positive for: Normal Range of Motion Respiratory/Chest: Positive for: Respiratory Distress, Wheezes, Rales, Other (currently on ventilator). Negative for: Accessory Muscle Use Cardiovascular: Positive for: Normal S1, S2, Irregular Rhythm. Negative for: Murmurs Abdomen: Negative for: Tenderness, Distention, Peritoneal Signs Back: Positive for: Normal Inspection Upper Extremity: Positive for: Normal Inspection. Negative for: Cyanosis, Edema Lower Extremity: Positive for: Normal Inspection. Negative for: Edema Neurological: Positive for: Other (intubated) Skin: Positive for: Warm, Dry, Normal Color, Other (R IJ central port noted). Negative for: Rashes - Medications Active Medications: Active Medications Generic Name Dose Route Start Last Admin Trade Name Freq PRN Reason Stop Dose Admin Acetaminophen 650 mg 05/10/18 20:29 05/10/18 20:55 Tylenol 650 Mg Supp RC 650 mg Q6H PRN Administration Fever >100.4 F Acetaminophen 650 mg 05/14/18 09:13 Tylenol 650mg/20.3ml Solution Ud NG Q6H PRN FEVER > 100.4 Albumin Human 12.5 gm 05/14/18 14:45 Albumin Human 25% (12.5 Gm/50 Ml) IV Q6H ZARI Aspirin 81 mg 05/12/18 11:30 05/13/18 10:41 Aspirin Chewable PO 81 mg DAILY ZARI Administration Budesonide 0.5 mg 04/27/18 20:00 05/14/18 07:24 Pulmicort Respules IH 0.5 mg [id number] ZARI Administration Dextrose 0 ml 05/09/18 10:48 Dextrose 50% Inj IV STAT PRN Hypoglycemia Protocol Protocol Diltiazem HCl 120 mg 04/27/18 10:00 05/07/18 11:16 Cardizem Cd PO Not Given DAILY ZARI Enoxaparin Sodium 60 mg 05/07/18 10:15 05/13/18 21:38 Lovenox SC 60 mg Q12H ZARI Administration Protocol Hydromorphone HCl 0.5 mg 05/13/18 00:26 05/13/18 12:46 Dilaudid IVP 0.5 mg Q4H PRN Administration Pain, severe (8-10) Meropenem 1 gm in 50 mls @ 100 mls/hr 05/05/18 15:15 05/14/18 06:32 Merrem Iv 1 Gm Premix IVPB 100 mls/hr Q8 ZARI Administration Protocol Vancomycin HCl 1 gm in 250 mls @ 167 mls/hr 05/05/18 15:15 05/14/18 03:38 Vancomycin 1gm IVPB 167 mls/hr Q12H ZARI Administration Protocol Dexmedetomidine HCl 400 mcg in 100 mls @ 3.357 mls/hr 05/09/18 10:31 05/14/18 03:26 Precedex 400mcg/100ml IV 0.8 mcg/kg/hr .Q24H PRN 13.426 mls/hr Sedation Administration Protocol 0.2 MCG/KG/HR Dextrose 1,000 mls @ 0 mls/hr 05/09/18 10:48 Dextrose 5% In Water 1000 Ml IV .Q0M PRN Hypoglycemia Protocol Protocol Per Protocol Micafungin Sodium 100 mg/ 100 mls @ 100 mls/hr 05/10/18 13:15 05/13/18 10:41 Sodium Chloride IV 05/17/18 13:16 100 mls/hr DAILY ZARI Administration Protocol diltiaZEM IVPB 100mg in NS 100 mls @ 10 mls/hr 05/11/18 08:12 05/14/18 09:03 Cardizem 100mg In Ns IV 15 mg/hr .Q10H PRN 15 mls/hr TITRATE PER MD ORDER Administration Protocol 10 MG/HR NOREPINEPHRINE BIT/0.9 % NACL 4 mg in 250 mls @ 15 mls/hr 05/12/18 19:49 05/13/18 12:00 Levophed 4 Mg/ 250 Ml Ns Premixed IV 0 mcg/min .[id number] PRN 0 mls/hr TITRATE PER MD ORDER Titration Protocol 4 MCG/MIN Insulin Human Lispro 0 units 05/09/18 11:30 05/14/18 07:45 Humalog High SC 10 u ACHS ZARI Administration Protocol Levalbuterol HCl 0.63 mg 04/27/18 12:16 05/08/18 03:00 Xopenex IH 0.63 mg [id number] PRN Administration Shortness of Breath Levalbuterol HCl 0.63 mg 04/28/18 20:00 05/14/18 07:24 Xopenex IH 0.63 mg TIDRESP ZARI Administration Methylprednisolone 60 mg 05/11/18 10:01 05/14/18 03:39 Solu-Medrol IVP 60 mg Q6H ZARI Administration Pantoprazole Sodium 40 mg 05/02/18 21:00 05/08/18 05:00 Protonix Ec Tab PO 40 mg 0600 ZARI Administration Pantoprazole Sodium 40 mg 05/09/18 10:00 05/13/18 10:41 Protonix Inj IVP 40 mg DAILY ZARI Administration Sotalol HCl 40 mg 05/09/18 10:00 05/11/18 09:16 Betapace PO Not Given BID ZARI Verapamil HCl 40 mg 05/10/18 14:00 05/11/18 09:16 Calan Tab PO Not Given TID ZARI Verapamil HCl 2.5 mg 05/10/18 12:31 05/13/18 05:11 Verapamil Inj IVP 2.5 mg Q6 PRN Administration FOR HR GREATER THAN 130 - Patient Studies Lab Studies: Microbiology Studies 05/09/18 08:30 Blood Culture - Final Blood-Venous NO GROWTH AFTER 5 DAYS Gram Stain - Final TEST NOT PERFORMED 05/09/18 08:10 Blood Culture - Final Blood-Venous NO GROWTH AFTER 5 DAYS Gram Stain - Final TEST NOT PERFORMED Lab Studies 05/14/18 05/14/18 05/14/18 Range/Units 09:15 06:30 06:30 WBC (4.5-11.0) 10^3/uL RBC (3.5-6.1) 10^6/uL Hgb (14.0-18.0) g/dL Hct (42.0-52.0) % MCV (80.0-105.0) fl MCH (25.0-35.0) pg MCHC (31.0-37.0) g/dl RDW (11.5-14.5) % Plt Count (120.0-450.0) 10^3/uL MPV (7.0-11.0) fl Neut % (Auto) (50.0-68.0) % Lymph % (Auto) (22.0-35.0) % [place] % (Auto) (1.0-6.0) % Eos % (Auto) (1.5-5.0) % Baso % (Auto) (0.0-3.0) % Lymph # (Auto) (1.2-3.4) [place] # (Auto) (0.1-0.6) Eos # (Auto) (0.0-0.7) Baso # (Auto) (0.0-2.0) K/mm3 Absolute Neuts (auto) (1.4-6.5) Neutrophils % (Manual) (50.0-70.0) % Lymphocytes % (Manual) (22.0-35.0) % Monocytes % (Manual) (1.0-6.0) % Platelet Evaluation (NORMAL) pCO2 53 H (35-45) mm/Hg pO2 66.0 L 38 (80-100) mm/Hg HCO3 36.8 H (21-28) mmol/L ABG pH 7.45 (7.35-7.45) ABG Total CO2 38.4 H (22-28) mmol.L ABG O2 Saturation 95.8 (95-98) % ABG O2 Content 12.7 L (15-23) ML/dl ABG Base Excess 11.3 H (-2.0-3.0) mmol/L ABG Hemoglobin 9.8 L (11.7-17.4) g/dL ABG Carboxyhemoglobin 2.8 H (0.5-1.5) % POC ABG HHb (Measured) 4.0 (0-5) % ABG Methemoglobin 1.1 (0.0-3.0) % ABG O2 Capacity 13.3 L (16-24) mL/dl ABG Potassium (3.6-5.2) mmol/L VBG pH 7.41 (7.32-7.43) VBG pCO2 65.0 H (40-60) VBG HCO3 41.2 H (21-28) mmol/l VBG Total CO2 43.2 H (22-28) mmol.L VBG O2 Sat (Calc) 72.8 H (40-65) % VBG Base Excess 13.5 H (0.0-2.0) mmol/L VBG Potassium 5.3 H (3.6-5.2) mmol/L Hgb O2 Saturation 92.0 L (95.0-98.0) % Sodium 153.0 H 150 H (132-148) mmol/L Chloride 117.0 H 112 H (98-107) mmol/L Glucose 377 H (75-110) mg/dl Lactate 2.7 H (0.7-2.1) mmol/L Mechanical Rate FiO2 70.0 21.0 % Tidal Volume PEEP Crit Value Called To Lakisha izaguirre Crit Value Called By Tracy montalvo Blood Gas Notified Time 710 Potassium 5.1 H (3.6-5.0) mmol/L Carbon Dioxide 40 H (21-33) mmol/L Anion Gap 3 L (10-20) BUN 61 H (7-21) mg/dL Creatinine 0.8 (0.8-1.5) mg/dl Est GFR ( Amer) > 60 Est GFR (Non-Af Amer) > 60 Random Glucose 344 H* D (70-110) mg/dL Calcium 7.5 L (8.4-10.5) mg/dL Total Bilirubin 0.6 (0.2-1.3) mg/dL AST 365 H D (17-59) U/L ALT 403 H (7-56) U/L Alkaline Phosphatase 248 H D (38-126) U/L Total Protein 4.9 L (5.8-8.3) g/dL Albumin 2.2 L (3.0-4.8) g/dL Globulin 2.7 gm/dL Albumin/Globulin Ratio 0.8 L (1.1-1.8) Arterial Blood Potassium (3.6-5.2) mmol/L Venous Blood Potassium 5.3 H (3.6-5.2) mmol/L 05/14/18 05/14/18 05/13/18 Range/Units 06:30 05:10 22:30 WBC 17.2 H (4.5-11.0) 10^3/uL RBC 3.35 L (3.5-6.1) 10^6/uL Hgb 9.4 L (14.0-18.0) g/dL Hct 33.5 L (42.0-52.0) % MCV 100.0 (80.0-105.0) fl MCH 28.1 (25.0-35.0) pg MCHC 28.1 L (31.0-37.0) g/dl RDW 19.8 H (11.5-14.5) % Plt Count 110 L (120.0-450.0) 10^3/uL MPV 11.6 H (7.0-11.0) fl Neut % (Auto) 89.8 H (50.0-68.0) % Lymph % (Auto) 2.9 L (22.0-35.0) % [place] % (Auto) 7.2 H (1.0-6.0) % Eos % (Auto) 0.0 L (1.5-5.0) % Baso % (Auto) 0.1 (0.0-3.0) % Lymph # (Auto) 0.5 L (1.2-3.4) [place] # (Auto) 1.2 H (0.1-0.6) Eos # (Auto) 0.0 (0.0-0.7) Baso # (Auto) 0.02 (0.0-2.0) K/mm3 Absolute Neuts (auto) 15.44 H (1.4-6.5) Neutrophils % (Manual) 93 H (50.0-70.0) % Lymphocytes % (Manual) 6 L (22.0-35.0) % Monocytes % (Manual) 1 (1.0-6.0) % Platelet Evaluation Low (NORMAL) pCO2 54 H (35-45) mm/Hg pO2 64.0 L 50 (80-100) mm/Hg HCO3 37.5 H (21-28) mmol/L ABG pH 7.45 (7.35-7.45) ABG Total CO2 39.2 H (22-28) mmol.L ABG O2 Saturation 95.6 (95-98) % ABG O2 Content 11.9 L (15-23) ML/dl ABG Base Excess 12.0 H (-2.0-3.0) mmol/L ABG Hemoglobin 9.2 L (11.7-17.4) g/dL ABG Carboxyhemoglobin 2.9 H (0.5-1.5) % POC ABG HHb (Measured) 4.2 (0-5) % ABG Methemoglobin 1.0 (0.0-3.0) % ABG O2 Capacity 12.4 L (16-24) mL/dl ABG Potassium (3.6-5.2) mmol/L VBG pH 7.36 (7.32-7.43) VBG pCO2 76.0 H* (40-60) VBG HCO3 42.9 H (21-28) mmol/l VBG Total CO2 45.2 H (22-28) mmol.L VBG O2 Sat (Calc) 84.5 H (40-65) % VBG Base Excess 13.8 H (0.0-2.0) mmol/L VBG Potassium 5.0 (3.6-5.2) mmol/L Hgb O2 Saturation 91.8 L (95.0-98.0) % Sodium 154.0 H (132-148) mmol/L Chloride 116.0 H (98-107) mmol/L Glucose 249 H (75-110) mg/dl Lactate 2.1 (0.7-2.1) mmol/L Mechanical Rate FiO2 70.0 21.0 % Tidal Volume PEEP Crit Value Called To Rn lakisha Crit Value Called By Ms Blood Gas Notified Time 1050 Potassium (3.6-5.0) mmol/L Carbon Dioxide (21-33) mmol/L Anion Gap (10-20) BUN (7-21) mg/dL Creatinine (0.8-1.5) mg/dl Est GFR ( Amer) Est GFR (Non-Af Amer) Random Glucose (70-110) mg/dL Calcium (8.4-10.5) mg/dL Total Bilirubin (0.2-1.3) mg/dL AST (17-59) U/L ALT (7-56) U/L Alkaline Phosphatase (38-126) U/L Total Protein (5.8-8.3) g/dL Albumin (3.0-4.8) g/dL Globulin gm/dL Albumin/Globulin Ratio (1.1-1.8) Arterial Blood Potassium (3.6-5.2) mmol/L Venous Blood Potassium 5.0 (3.6-5.2) mmol/L 05/13/18 05/13/18 05/13/18 Range/Units 17:25 14:44 11:15 WBC (4.5-11.0) 10^3/uL RBC (3.5-6.1) 10^6/uL Hgb (14.0-18.0) g/dL Hct (42.0-52.0) % MCV (80.0-105.0) fl MCH (25.0-35.0) pg MCHC (31.0-37.0) g/dl RDW (11.5-14.5) % Plt Count (120.0-450.0) 10^3/uL MPV (7.0-11.0) fl Neut % (Auto) (50.0-68.0) % Lymph % (Auto) (22.0-35.0) % [place] % (Auto) (1.0-6.0) % Eos % (Auto) (1.5-5.0) % Baso % (Auto) (0.0-3.0) % Lymph # (Auto) (1.2-3.4) [place] # (Auto) (0.1-0.6) Eos # (Auto) (0.0-0.7) Baso # (Auto) (0.0-2.0) K/mm3 Absolute Neuts (auto) (1.4-6.5) Neutrophils % (Manual) (50.0-70.0) % Lymphocytes % (Manual) (22.0-35.0) % Monocytes % (Manual) (1.0-6.0) % Platelet Evaluation (NORMAL) pCO2 63 H 55 H (35-45) mm/Hg pO2 49.0 L 75.0 L (80-100) mm/Hg HCO3 40.9 H* 40.0 H (21-28) mmol/L ABG pH 7.42 7.47 H (7.35-7.45) ABG Total CO2 42.8 H 41.7 H (22-28) mmol.L ABG O2 Saturation 86.3 L 97.5 (95-98) % ABG O2 Content (15-23) ML/dl ABG Base Excess 13.5 H 13.8 H (-2.0-3.0) mmol/L ABG Hemoglobin (11.7-17.4) g/dL ABG Carboxyhemoglobin (0.5-1.5) % POC ABG HHb (Measured) (0-5) % ABG Methemoglobin (0.0-3.0) % ABG O2 Capacity (16-24) mL/dl ABG Potassium 4.3 3.9 (3.6-5.2) mmol/L VBG pH (7.32-7.43) VBG pCO2 (40-60) VBG HCO3 (21-28) mmol/l VBG Total CO2 (22-28) mmol.L VBG O2 Sat (Calc) (40-65) % VBG Base Excess (0.0-2.0) mmol/L VBG Potassium (3.6-5.2) mmol/L Hgb O2 Saturation (95.0-98.0) % Sodium 152.0 H 147 152.0 H (132-148) mmol/L Chloride 116.0 H 110 H 114.0 H (98-107) mmol/L Glucose 234 H 315 H (75-110) mg/dl Lactate 2.4 H 3.3 H (0.7-2.1) mmol/L Mechanical Rate 18 18 FiO2 70.0 60.0 % Tidal Volume 400 400 PEEP 10 12 Crit Value Called To Dr.khan Fritz Crit Value Called By Ariel head Blood Gas Notified Time 1737 1124 Potassium 4.3 (3.6-5.0) mmol/L Carbon Dioxide 41 H (21-33) mmol/L Anion Gap 4 L (10-20) BUN 60 H (7-21) mg/dL Creatinine 0.8 (0.8-1.5) mg/dl Est GFR ( Amer) > 60 Est GFR (Non-Af Amer) > 60 Random Glucose 256 H (70-110) mg/dL Calcium 7.0 L (8.4-10.5) mg/dL Total Bilirubin 0.2 (0.2-1.3) mg/dL AST 112 H D (17-59) U/L ALT 240 H (7-56) U/L Alkaline Phosphatase 197 H (38-126) U/L Total Protein 4.6 L (5.8-8.3) g/dL Albumin 2.0 L (3.0-4.8) g/dL Globulin 2.6 gm/dL Albumin/Globulin Ratio 0.8 L (1.1-1.8) Arterial Blood Potassium 4.3 3.9 (3.6-5.2) mmol/L Venous Blood Potassium (3.6-5.2) mmol/L Laboratory Results - last 24 hr 05/13/18 05/13/18 05/13/18 11:15 14:44 17:25 WBC RBC Hgb Hct MCV MCH MCHC RDW Plt Count MPV Neut % (Auto) Lymph % (Auto) [place] % (Auto) Eos % (Auto) Baso % (Auto) Lymph # (Auto) [place] # (Auto) Eos # (Auto) Baso # (Auto) Absolute Neuts (auto) Neutrophils % (Manual) Lymphocytes % (Manual) Monocytes % (Manual) Platelet Evaluation pCO2 55 H 63 H pO2 75.0 L 49.0 L HCO3 40.0 H 40.9 H* ABG pH 7.47 H 7.42 ABG Total CO2 41.7 H 42.8 H ABG O2 Saturation 97.5 86.3 L ABG O2 Content ABG Base Excess 13.8 H 13.5 H ABG Hemoglobin ABG Carboxyhemoglobin POC ABG HHb (Measured) ABG Methemoglobin ABG O2 Capacity ABG Potassium 3.9 4.3 VBG pH VBG pCO2 VBG HCO3 VBG Total CO2 VBG O2 Sat (Calc) VBG Base Excess VBG Potassium Hgb O2 Saturation Sodium 152.0 H 147 152.0 H Chloride 114.0 H 110 H 116.0 H Glucose 315 H 234 H Lactate 3.3 H 2.4 H Mechanical Rate 18 18 FiO2 60.0 70.0 Tidal Volume 400 400 PEEP 12 10 Crit Value Called To Dr.khan Fritz Crit Value Called By Ariel George rt. Blood Gas Notified Time 1124 1735 Potassium 4.3 Carbon Dioxide 41 H Anion Gap 4 L BUN 60 H Creatinine 0.8 Est GFR ( Amer) > 60 Est GFR (Non-Af Amer) > 60 Random Glucose 256 H Calcium 7.0 L Total Bilirubin 0.2 AST 112 H D ALT 240 H Alkaline Phosphatase 197 H Total Protein 4.6 L Albumin 2.0 L Globulin 2.6 Albumin/Globulin Ratio 0.8 L Arterial Blood Potassium 3.9 4.3 Venous Blood Potassium 05/13/18 05/14/18 05/14/18 22:30 05:10 06:30 WBC 17.2 H RBC 3.35 L Hgb 9.4 L Hct 33.5 L MCV 100.0 MCH 28.1 MCHC 28.1 L RDW 19.8 H Plt Count 110 L MPV 11.6 H Neut % (Auto) 89.8 H Lymph % (Auto) 2.9 L [place] % (Auto) 7.2 H Eos % (Auto) 0.0 L Baso % (Auto) 0.1 Lymph # (Auto) 0.5 L [place] # (Auto) 1.2 H Eos # (Auto) 0.0 Baso # (Auto) 0.02 Absolute Neuts (auto) 15.44 H Neutrophils % (Manual) 93 H Lymphocytes % (Manual) 6 L Monocytes % (Manual) 1 Platelet Evaluation Low pCO2 54 H pO2 50 64.0 L HCO3 37.5 H ABG pH 7.45 ABG Total CO2 39.2 H ABG O2 Saturation 95.6 ABG O2 Content 11.9 L ABG Base Excess 12.0 H ABG Hemoglobin 9.2 L ABG Carboxyhemoglobin 2.9 H POC ABG HHb (Measured) 4.2 ABG Methemoglobin 1.0 ABG O2 Capacity 12.4 L ABG Potassium VBG pH 7.36 VBG pCO2 76.0 H* VBG HCO3 42.9 H VBG Total CO2 45.2 H VBG O2 Sat (Calc) 84.5 H VBG Base Excess 13.8 H VBG Potassium 5.0 Hgb O2 Saturation 91.8 L Sodium 154.0 H Chloride 116.0 H Glucose 249 H Lactate 2.1 Mechanical Rate FiO2 21.0 70.0 Tidal Volume PEEP Crit Value Called To Rn lakisha Crit Value Called By Ms Blood Gas Notified Time 1050 Potassium Carbon Dioxide Anion Gap BUN Creatinine Est GFR ( Amer) Est GFR (Non-Af Amer) Random Glucose Calcium Total Bilirubin AST ALT Alkaline Phosphatase Total Protein Albumin Globulin Albumin/Globulin Ratio Arterial Blood Potassium Venous Blood Potassium 5.0 05/14/18 05/14/18 05/14/18 06:30 06:30 09:15 WBC RBC Hgb Hct MCV MCH MCHC RDW Plt Count MPV Neut % (Auto) Lymph % (Auto) [place] % (Auto) Eos % (Auto) Baso % (Auto) Lymph # (Auto) [place] # (Auto) Eos # (Auto) Baso # (Auto) Absolute Neuts (auto) Neutrophils % (Manual) Lymphocytes % (Manual) Monocytes % (Manual) Platelet Evaluation pCO2 53 H pO2 38 66.0 L HCO3 36.8 H ABG pH 7.45 ABG Total CO2 38.4 H ABG O2 Saturation 95.8 ABG O2 Content 12.7 L ABG Base Excess 11.3 H ABG Hemoglobin 9.8 L ABG Carboxyhemoglobin 2.8 H POC ABG HHb (Measured) 4.0 ABG Methemoglobin 1.1 ABG O2 Capacity 13.3 L ABG Potassium VBG pH 7.41 VBG pCO2 65.0 H VBG HCO3 41.2 H VBG Total CO2 43.2 H VBG O2 Sat (Calc) 72.8 H VBG Base Excess 13.5 H VBG Potassium 5.3 H Hgb O2 Saturation 92.0 L Sodium 150 H 153.0 H Chloride 112 H 117.0 H Glucose 377 H Lactate 2.7 H Mechanical Rate FiO2 21.0 70.0 Tidal Volume PEEP Crit Value Called To Lakisha izaguirre Crit Value Called By Tracy montalvo Blood Gas Notified Time 710 Potassium 5.1 H Carbon Dioxide 40 H Anion Gap 3 L BUN 61 H Creatinine 0.8 Est GFR ( Amer) > 60 Est GFR (Non-Af Amer) > 60 Random Glucose 344 H* D Calcium 7.5 L Total Bilirubin 0.6 AST 365 H D ALT 403 H Alkaline Phosphatase 248 H D Total Protein 4.9 L Albumin 2.2 L Globulin 2.7 Albumin/Globulin Ratio 0.8 L Arterial Blood Potassium Venous Blood Potassium 5.3 H Radiology Impressions: Radiology Impressions Chest X-Ray 05/13/18 05:00 IMPRESSION: Interval improvement in the lung reticular opacities and consolidation since the previous exam. Chest X-Ray 05/14/18 05:00 IMPRESSION: Persistent [id number] pulmonary vascular congestion with increased limited patchy infiltrate right perihilar region. Limited patchy density seen the right apex and retrocardiac left base. Trace right pleural effusion remains. 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 Patient was diagnosed with sepsis 2/2 to HCAP. On 05/05, patient became hypoxia and was in respiratory distress. Patient subsequently intubated and sedated with propofol and versed. Will attempt sedation vacation today Plan: Neuro: S/p intubation for hypoxic repsiratory failure -Intubated on 05/05/18, currently sedated on precedex, will attempt sedation vacation today -Head CT w/o contrast on 05/10/18 showed no acute intracranial abnormalities -EEG on 05/11/18 showed abnormal EEG record that demonstrate the presence of moderate to severe non specific diffuse disturbance of cortical activity, findings are not specific. No seizures. Patient is not in status epilepticus. Cardio: Atrial flutter -EKG 05/10: Atrial flutter with 2:1 AV block with HR: 156 -Currently rated controlled, on cardizem drip at 15mg/hr. Titrate down the cardizem drip. -Levophed titrated off -Start cardizem 30 mg QID -2 U of albumin administered as per Dr. Orozco, Cardiology, to maintain oncotic pressure. -Maintain MAP>65. NSTEMI -EKG 05/10: Atrial flutter with 2:1 AV block with HR: 156 -Troponin: 05/06/09 10.9, 9.66, 8.96, 6.33 -Continue Aspirin 81mg, topical nitroglycerin q6 -Continue Lovenox 60 mg Q12 Elevated BNP -BNP: 3240, BNP pending for today. Consider diastolic CHF -Echocardiogram 05/07: EF: 49.3%, trace AR, MR, RVSP: 50 -Stopped lasix drip as patient has been tachycardic. Patient is likely dry and has been given boluses of NS with moderate improvement in heart rate. Pulm/Oncology Hypoxic respiratory failure 2/2 to ARDS from small cell lung carcinoma vs. pneumonitis -Patient intubated and sedated with settings 400/18/12/70% -Maintain O2 saturation>92%. ABG 05/14 shows pH: 7.45, pCO2: 54, and pO2: 64 yesterday, which is improved from yesterday. -CXR: unchanged from prior CXR yesterday -As per Dr. Bullard, Heme/Onc, patient has possible pneumonitis as complication of Tecentriq treatment for SCLC -Treat Tecentriq side effect with solumedrol 60 mg Q6 -Recent PET CT shows improvement in small cell lung carcinoma -Weaning and sedation trials, Elevate bed to 30 degrees, oral protective hygiene daily, conservative fluid management COPD -Continue with Pulmicort 0.5 mg IH Q12, and xopenex 0.63 mg IH TID, solumedrol 60 mg Q6 GI: Elevated LFTs -worsened today, consider dehydration vs congestive hepatopathy, will continue to trend Diet -continue jevity feedings Prophylaxis -Protonix 40 mg IV daily /Nephro: -BUN/Cr stable -Maintain euvolemia -Replace electrolytes as necessary ID: Multifocal pneumonia -CXR today shows no change from prior CXR yesterday. -Chest CT 04/27: multifocal pneumonia -Afebrile, WBC is 17.2 from 18.3, downtrending -Blood culture was negative for 5 days upon admission from 05/09. Blood culture reordered was negative for 24 hours. -Procal 05/05: 0.55. Repeat procal was 0.62 on 05/09/18 -Follow up C. Dif stool toxin. -Vancomycin 1 gm Q12 day 9, Merrem 1 gm Q8 day 9, Nystatin 5 mg QID Endocrinology: -Random glucose: 200s -HgbA1c: 6.2 -Continue with high dose sliding scale insulin with target glucose 140-180 Heme Anemia -Hg is 9.4 today from 10.4 yesterday -No obvious source of bleeding, will monitor. DVT prophylaxis -Lovenox 60 mg Q12 as therapeutic anticoagulation for NSTEMI Disposition: Per families wishes, patient to remain full code at this time. Will have conversation with family again regarding critical prognosis. Patient seen and examined with Dr. Chan. - Date & Time Date: 05/14/18 Time: 09:31 <Irma Chan - Last Filed: 05/14/18 16:23> CCU Objective - Vital Signs / Intake & Output Vital Signs (Last 4 hours): Vital Signs Pulse BP 05/14/18 14:00 65 05/14/18 13:29 65 106/44 L Intake and Output (Last 8hrs): Intake & Output 05/14/18 05/14/18 05/14/18 06:59 14:59 22:59 Intake Total 2393 203 Output Total 700 Balance 1693 203 Weight 72.484 kg Intake: IV 873 203 Precedex 161 antibiotics 350 cardizem 160 Tube Feeding 720 Other 800 Output: Urine 700 Urethral (Yang) 700 - Medications Active Medications: Active Medications Generic Name Dose Route Start Last Admin Trade Name Freq PRN Reason Stop Dose Admin Acetaminophen 650 mg 05/10/18 20:29 05/10/18 20:55 Tylenol 650 Mg Supp RC 650 mg Q6H PRN Administration Fever >100.4 F Acetaminophen 650 mg 05/14/18 09:13 05/14/18 09:29 Tylenol 650mg/20.3ml Solution Ud NG 650 mg Q6H PRN Administration FEVER > 100.4 Albumin Human 12.5 gm 05/14/18 14:45 05/14/18 15:13 Albumin Human 25% (12.5 Gm/50 Ml) IV 12.5 gm Q6H ZARI Administration Aspirin 81 mg 05/12/18 11:30 05/14/18 09:30 Aspirin Chewable PO 81 mg DAILY ZARI Administration Budesonide 0.5 mg 04/27/18 20:00 05/14/18 07:24 Pulmicort Respules IH 0.5 mg [id number] ZARI Administration Dextrose 0 ml 05/09/18 10:48 Dextrose 50% Inj IV STAT PRN Hypoglycemia Protocol Protocol Diltiazem HCl 120 mg 04/27/18 10:00 05/07/18 11:16 Cardizem Cd PO Not Given DAILY ZARI Diltiazem HCl 30 mg 05/14/18 14:00 05/14/18 13:29 Cardizem NG 30 mg QID ZARI Administration Enoxaparin Sodium 60 mg 05/07/18 10:15 05/14/18 09:31 Lovenox SC 60 mg Q12H ZARI Administration Protocol Hydromorphone HCl 0.5 mg 05/13/18 00:26 05/13/18 12:46 Dilaudid IVP 0.5 mg Q4H PRN Administration Pain, severe (8-10) Meropenem 1 gm in 50 mls @ 100 mls/hr 05/05/18 15:15 05/14/18 13:30 Merrem Iv 1 Gm Premix IVPB 100 mls/hr Q8 ZARI Administration Protocol Vancomycin HCl 1 gm in 250 mls @ 167 mls/hr 05/05/18 15:15 05/14/18 15:22 Vancomycin 1gm IVPB 167 mls/hr Q12H ZARI Administration Protocol Dexmedetomidine HCl 400 mcg in 100 mls @ 3.357 mls/hr 05/09/18 10:31 05/14/18 09:59 Precedex 400mcg/100ml IV 0.8 mcg/kg/hr .Q24H PRN 13.426 mls/hr Sedation Administration Protocol 0.2 MCG/KG/HR Dextrose 1,000 mls @ 0 mls/hr 05/09/18 10:48 Dextrose 5% In Water 1000 Ml IV .Q0M PRN Hypoglycemia Protocol Protocol Per Protocol Micafungin Sodium 100 mg/ 100 mls @ 100 mls/hr 05/10/18 13:15 05/14/18 09:35 Sodium Chloride IV 05/17/18 13:16 100 mls/hr DAILY ZARI Administration Protocol diltiaZEM IVPB 100mg in NS 100 mls @ 10 mls/hr 05/11/18 08:12 05/14/18 12:00 Cardizem 100mg In Ns IV 10 mg/hr .Q10H PRN 10 mls/hr TITRATE PER MD ORDER Titration Protocol 10 MG/HR NOREPINEPHRINE BIT/0.9 % NACL 4 mg in 250 mls @ 15 mls/hr 05/12/18 19:49 05/13/18 12:00 Levophed 4 Mg/ 250 Ml Ns Premixed IV 0 mcg/min .[id number] PRN 0 mls/hr TITRATE PER MD ORDER Titration Protocol 4 MCG/MIN Insulin Human Lispro 0 units 05/09/18 11:30 05/14/18 11:04 Humalog High SC 10 u ACHS ZARI Administration Protocol Levalbuterol HCl 0.63 mg 04/27/18 12:16 05/08/18 03:00 Xopenex IH 0.63 mg [id number] PRN Administration Shortness of Breath Levalbuterol HCl 0.63 mg 04/28/18 20:00 05/14/18 13:54 Xopenex IH 0.63 mg TIDRESP ZARI Administration Methylprednisolone 60 mg 05/11/18 10:01 05/14/18 09:30 Solu-Medrol IVP 60 mg Q6H ZARI Administration Pantoprazole Sodium 40 mg 05/02/18 21:00 05/08/18 05:00 Protonix Ec Tab PO 40 mg 0600 ZARI Administration Pantoprazole Sodium 40 mg 05/09/18 10:00 05/14/18 10:54 Protonix Inj IVP 40 mg DAILY ZARI Administration Sotalol HCl 40 mg 05/09/18 10:00 05/11/18 09:16 Betapace PO Not Given BID ZARI Verapamil HCl 40 mg 05/10/18 14:00 05/11/18 09:16 Calan Tab PO Not Given TID ZARI Verapamil HCl 2.5 mg 05/10/18 12:31 05/13/18 05:11 Verapamil Inj IVP 2.5 mg Q6 PRN Administration FOR HR GREATER THAN 130 - Patient Studies Lab Studies: Microbiology Studies 05/14/18 07:45 Gram Stain - Final Trachasp 05/11/18 18:27 Gram Stain - Final Trachasp Sputum Culture - Final NORMAL ORAL ALFIE 05/13/18 17:30 C. difficile Antigen & Toxins A,B - Final Stool 05/13/18 10:05 Blood Culture - Preliminary Blood NO GROWTH AFTER 24 HOURS 05/13/18 09:25 Blood Culture - Preliminary Blood NO GROWTH AFTER 24 HOURS 05/09/18 08:30 Blood Culture - Final Blood-Venous NO GROWTH AFTER 5 DAYS Gram Stain - Final TEST NOT PERFORMED 05/09/18 08:10 Blood Culture - Final Blood-Venous NO GROWTH AFTER 5 DAYS Gram Stain - Final TEST NOT PERFORMED Lab Studies 05/14/18 05/14/18 05/14/18 Range/Units 11:50 09:15 06:30 WBC (4.5-11.0) 10^3/uL RBC (3.5-6.1) 10^6/uL Hgb (14.0-18.0) g/dL Hct (42.0-52.0) % MCV (80.0-105.0) fl MCH (25.0-35.0) pg MCHC (31.0-37.0) g/dl RDW (11.5-14.5) % Plt Count (120.0-450.0) 10^3/uL MPV (7.0-11.0) fl Neut % (Auto) (50.0-68.0) % Lymph % (Auto) (22.0-35.0) % [place] % (Auto) (1.0-6.0) % Eos % (Auto) (1.5-5.0) % Baso % (Auto) (0.0-3.0) % Lymph # (Auto) (1.2-3.4) [place] # (Auto) (0.1-0.6) Eos # (Auto) (0.0-0.7) Baso # (Auto) (0.0-2.0) K/mm3 Absolute Neuts (auto) (1.4-6.5) Neutrophils % (Manual) (50.0-70.0) % Lymphocytes % (Manual) (22.0-35.0) % Monocytes % (Manual) (1.0-6.0) % Platelet Evaluation (NORMAL) pCO2 53 H (35-45) mm/Hg pO2 67 H 66.0 L 38 (80-100) mm/Hg HCO3 36.8 H (21-28) mmol/L ABG pH 7.45 (7.35-7.45) ABG Total CO2 38.4 H (22-28) mmol.L ABG O2 Saturation 95.8 (95-98) % ABG O2 Content 12.7 L (15-23) ML/dl ABG Base Excess 11.3 H (-2.0-3.0) mmol/L ABG Hemoglobin 9.8 L (11.7-17.4) g/dL ABG Carboxyhemoglobin 2.8 H (0.5-1.5) % POC ABG HHb (Measured) 4.0 (0-5) % ABG Methemoglobin 1.1 (0.0-3.0) % ABG O2 Capacity 13.3 L (16-24) mL/dl ABG Potassium (3.6-5.2) mmol/L VBG pH 7.38 7.41 (7.32-7.43) VBG pCO2 66.0 H* 65.0 H (40-60) VBG HCO3 39.0 H 41.2 H (21-28) mmol/l VBG Total CO2 41.0 H 43.2 H (22-28) mmol.L VBG O2 Sat (Calc) 95.3 H 72.8 H (40-65) % VBG Base Excess 11.1 H 13.5 H (0.0-2.0) mmol/L VBG Potassium 4.4 5.3 H (3.6-5.2) mmol/L Hgb O2 Saturation 92.0 L (95.0-98.0) % Sodium 156.0 H 153.0 H (132-148) mmol/L Chloride 118.0 H 117.0 H (98-107) mmol/L Glucose 351 H 377 H (75-110) mg/dl Lactate 3.5 H 2.7 H (0.7-2.1) mmol/L Mechanical Rate FiO2 21.0 70.0 21.0 % Tidal Volume PEEP Crit Value Called To Analia izaguirre Crit Value Called By Ab Tracy montalvo Blood Gas Notified Time 1205 710 Potassium (3.6-5.0) mmol/L Carbon Dioxide (21-33) mmol/L Anion Gap (10-20) BUN (7-21) mg/dL Creatinine (0.8-1.5) mg/dl Est GFR ( Amer) Est GFR (Non-Af Amer) Random Glucose (70-110) mg/dL Calcium (8.4-10.5) mg/dL Total Bilirubin (0.2-1.3) mg/dL AST (17-59) U/L ALT (7-56) U/L Alkaline Phosphatase (38-126) U/L Total Protein (5.8-8.3) g/dL Albumin (3.0-4.8) g/dL Globulin gm/dL Albumin/Globulin Ratio (1.1-1.8) Arterial Blood Potassium (3.6-5.2) mmol/L Venous Blood Potassium 4.4 5.3 H (3.6-5.2) mmol/L 05/14/18 05/14/18 05/14/18 Range/Units 06:30 06:30 05:10 WBC 17.2 H (4.5-11.0) 10^3/uL RBC 3.35 L (3.5-6.1) 10^6/uL Hgb 9.4 L (14.0-18.0) g/dL Hct 33.5 L (42.0-52.0) % MCV 100.0 (80.0-105.0) fl MCH 28.1 (25.0-35.0) pg MCHC 28.1 L (31.0-37.0) g/dl RDW 19.8 H (11.5-14.5) % Plt Count 110 L (120.0-450.0) 10^3/uL MPV 11.6 H (7.0-11.0) fl Neut % (Auto) 89.8 H (50.0-68.0) % Lymph % (Auto) 2.9 L (22.0-35.0) % [place] % (Auto) 7.2 H (1.0-6.0) % Eos % (Auto) 0.0 L (1.5-5.0) % Baso % (Auto) 0.1 (0.0-3.0) % Lymph # (Auto) 0.5 L (1.2-3.4) [place] # (Auto) 1.2 H (0.1-0.6) Eos # (Auto) 0.0 (0.0-0.7) Baso # (Auto) 0.02 (0.0-2.0) K/mm3 Absolute Neuts (auto) 15.44 H (1.4-6.5) Neutrophils % (Manual) 93 H (50.0-70.0) % Lymphocytes % (Manual) 6 L (22.0-35.0) % Monocytes % (Manual) 1 (1.0-6.0) % Platelet Evaluation Low (NORMAL) pCO2 54 H (35-45) mm/Hg pO2 64.0 L (80-100) mm/Hg HCO3 37.5 H (21-28) mmol/L ABG pH 7.45 (7.35-7.45) ABG Total CO2 39.2 H (22-28) mmol.L ABG O2 Saturation 95.6 (95-98) % ABG O2 Content 11.9 L (15-23) ML/dl ABG Base Excess 12.0 H (-2.0-3.0) mmol/L ABG Hemoglobin 9.2 L (11.7-17.4) g/dL ABG Carboxyhemoglobin 2.9 H (0.5-1.5) % POC ABG HHb (Measured) 4.2 (0-5) % ABG Methemoglobin 1.0 (0.0-3.0) % ABG O2 Capacity 12.4 L (16-24) mL/dl ABG Potassium (3.6-5.2) mmol/L VBG pH (7.32-7.43) VBG pCO2 (40-60) VBG HCO3 (21-28) mmol/l VBG Total CO2 (22-28) mmol.L VBG O2 Sat (Calc) (40-65) % VBG Base Excess (0.0-2.0) mmol/L VBG Potassium (3.6-5.2) mmol/L Hgb O2 Saturation 91.8 L (95.0-98.0) % Sodium 150 H (132-148) mmol/L Chloride 112 H (98-107) mmol/L Glucose (75-110) mg/dl Lactate (0.7-2.1) mmol/L Mechanical Rate FiO2 70.0 % Tidal Volume PEEP Crit Value Called To Crit Value Called By Blood Gas Notified Time Potassium 5.1 H (3.6-5.0) mmol/L Carbon Dioxide 40 H (21-33) mmol/L Anion Gap 3 L (10-20) BUN 61 H (7-21) mg/dL Creatinine 0.8 (0.8-1.5) mg/dl Est GFR ( Amer) > 60 Est GFR (Non-Af Amer) > 60 Random Glucose 344 H* D (70-110) mg/dL Calcium 7.5 L (8.4-10.5) mg/dL Total Bilirubin 0.6 (0.2-1.3) mg/dL AST 365 H D (17-59) U/L ALT 403 H (7-56) U/L Alkaline Phosphatase 248 H D (38-126) U/L Total Protein 4.9 L (5.8-8.3) g/dL Albumin 2.2 L (3.0-4.8) g/dL Globulin 2.7 gm/dL Albumin/Globulin Ratio 0.8 L (1.1-1.8) Arterial Blood Potassium (3.6-5.2) mmol/L Venous Blood Potassium (3.6-5.2) mmol/L 05/13/18 05/13/18 Range/Units 22:30 17:25 WBC (4.5-11.0) 10^3/uL RBC (3.5-6.1) 10^6/uL Hgb (14.0-18.0) g/dL Hct (42.0-52.0) % MCV (80.0-105.0) fl MCH (25.0-35.0) pg MCHC (31.0-37.0) g/dl RDW (11.5-14.5) % Plt Count (120.0-450.0) 10^3/uL MPV (7.0-11.0) fl Neut % (Auto) (50.0-68.0) % Lymph % (Auto) (22.0-35.0) % [place] % (Auto) (1.0-6.0) % Eos % (Auto) (1.5-5.0) % Baso % (Auto) (0.0-3.0) % Lymph # (Auto) (1.2-3.4) [place] # (Auto) (0.1-0.6) Eos # (Auto) (0.0-0.7) Baso # (Auto) (0.0-2.0) K/mm3 Absolute Neuts (auto) (1.4-6.5) Neutrophils % (Manual) (50.0-70.0) % Lymphocytes % (Manual) (22.0-35.0) % Monocytes % (Manual) (1.0-6.0) % Platelet Evaluation (NORMAL) pCO2 63 H (35-45) mm/Hg pO2 50 49.0 L (80-100) mm/Hg HCO3 40.9 H* (21-28) mmol/L ABG pH 7.42 (7.35-7.45) ABG Total CO2 42.8 H (22-28) mmol.L ABG O2 Saturation 86.3 L (95-98) % ABG O2 Content (15-23) ML/dl ABG Base Excess 13.5 H (-2.0-3.0) mmol/L ABG Hemoglobin (11.7-17.4) g/dL ABG Carboxyhemoglobin (0.5-1.5) % POC ABG HHb (Measured) (0-5) % ABG Methemoglobin (0.0-3.0) % ABG O2 Capacity (16-24) mL/dl ABG Potassium 4.3 (3.6-5.2) mmol/L VBG pH 7.36 (7.32-7.43) VBG pCO2 76.0 H* (40-60) VBG HCO3 42.9 H (21-28) mmol/l VBG Total CO2 45.2 H (22-28) mmol.L VBG O2 Sat (Calc) 84.5 H (40-65) % VBG Base Excess 13.8 H (0.0-2.0) mmol/L VBG Potassium 5.0 (3.6-5.2) mmol/L Hgb O2 Saturation (95.0-98.0) % Sodium 154.0 H 152.0 H (132-148) mmol/L Chloride 116.0 H 116.0 H (98-107) mmol/L Glucose 249 H 234 H (75-110) mg/dl Lactate 2.1 2.4 H (0.7-2.1) mmol/L Mechanical Rate 18 FiO2 21.0 70.0 % Tidal Volume 400 PEEP 10 Crit Value Called To Joel Fritz Crit Value Called By Ms Ariel sampson. Blood Gas Notified Time 1050 1735 Potassium (3.6-5.0) mmol/L Carbon Dioxide (21-33) mmol/L Anion Gap (10-20) BUN (7-21) mg/dL Creatinine (0.8-1.5) mg/dl Est GFR ( Amer) Est GFR (Non-Af Amer) Random Glucose (70-110) mg/dL Calcium (8.4-10.5) mg/dL Total Bilirubin (0.2-1.3) mg/dL AST (17-59) U/L ALT (7-56) U/L Alkaline Phosphatase (38-126) U/L Total Protein (5.8-8.3) g/dL Albumin (3.0-4.8) g/dL Globulin gm/dL Albumin/Globulin Ratio (1.1-1.8) Arterial Blood Potassium 4.3 (3.6-5.2) mmol/L Venous Blood Potassium 5.0 (3.6-5.2) mmol/L Laboratory Results - last 24 hr 05/13/18 05/13/18 05/14/18 17:25 22:30 05:10 WBC RBC Hgb Hct MCV MCH MCHC RDW Plt Count MPV Neut % (Auto) Lymph % (Auto) [place] % (Auto) Eos % (Auto) Baso % (Auto) Lymph # (Auto) [place] # (Auto) Eos # (Auto) Baso # (Auto) Absolute Neuts (auto) Neutrophils % (Manual) Lymphocytes % (Manual) Monocytes % (Manual) Platelet Evaluation pCO2 63 H 54 H pO2 49.0 L 50 64.0 L HCO3 40.9 H* 37.5 H ABG pH 7.42 7.45 ABG Total CO2 42.8 H 39.2 H ABG O2 Saturation 86.3 L 95.6 ABG O2 Content 11.9 L ABG Base Excess 13.5 H 12.0 H ABG Hemoglobin 9.2 L ABG Carboxyhemoglobin 2.9 H POC ABG HHb (Measured) 4.2 ABG Methemoglobin 1.0 ABG O2 Capacity 12.4 L ABG Potassium 4.3 VBG pH 7.36 VBG pCO2 76.0 H* VBG HCO3 42.9 H VBG Total CO2 45.2 H VBG O2 Sat (Calc) 84.5 H VBG Base Excess 13.8 H VBG Potassium 5.0 Hgb O2 Saturation 91.8 L Sodium 152.0 H 154.0 H Chloride 116.0 H 116.0 H Glucose 234 H 249 H Lactate 2.4 H 2.1 Mechanical Rate 18 FiO2 70.0 21.0 70.0 Tidal Volume 400 PEEP 10 Crit Value Called To Rn lakisha Crit Value Called By Ariel cornelius Ms Blood Gas Notified Time 1730 1050 Potassium Carbon Dioxide Anion Gap BUN Creatinine Est GFR ( Amer) Est GFR (Non-Af Amer) Random Glucose Calcium Total Bilirubin AST ALT Alkaline Phosphatase Total Protein Albumin Globulin Albumin/Globulin Ratio Arterial Blood Potassium 4.3 Venous Blood Potassium 5.0 05/14/18 05/14/18 05/14/18 06:30 06:30 06:30 WBC 17.2 H RBC 3.35 L Hgb 9.4 L Hct 33.5 L MCV 100.0 MCH 28.1 MCHC 28.1 L RDW 19.8 H Plt Count 110 L MPV 11.6 H Neut % (Auto) 89.8 H Lymph % (Auto) 2.9 L [place] % (Auto) 7.2 H Eos % (Auto) 0.0 L Baso % (Auto) 0.1 Lymph # (Auto) 0.5 L [place] # (Auto) 1.2 H Eos # (Auto) 0.0 Baso # (Auto) 0.02 Absolute Neuts (auto) 15.44 H Neutrophils % (Manual) 93 H Lymphocytes % (Manual) 6 L Monocytes % (Manual) 1 Platelet Evaluation Low pCO2 pO2 38 HCO3 ABG pH ABG Total CO2 ABG O2 Saturation ABG O2 Content ABG Base Excess ABG Hemoglobin ABG Carboxyhemoglobin POC ABG HHb (Measured) ABG Methemoglobin ABG O2 Capacity ABG Potassium VBG pH 7.41 VBG pCO2 65.0 H VBG HCO3 41.2 H VBG Total CO2 43.2 H VBG O2 Sat (Calc) 72.8 H VBG Base Excess 13.5 H VBG Potassium 5.3 H Hgb O2 Saturation Sodium 150 H 153.0 H Chloride 112 H 117.0 H Glucose 377 H Lactate 2.7 H Mechanical Rate FiO2 21.0 Tidal Volume PEEP Crit Value Called To Lakisha izaguirre Crit Value Called By Tracy montalvo Blood Gas Notified Time 710 Potassium 5.1 H Carbon Dioxide 40 H Anion Gap 3 L BUN 61 H Creatinine 0.8 Est GFR ( Amer) > 60 Est GFR (Non-Af Amer) > 60 Random Glucose 344 H* D Calcium 7.5 L Total Bilirubin 0.6 AST 365 H D ALT 403 H Alkaline Phosphatase 248 H D Total Protein 4.9 L Albumin 2.2 L Globulin 2.7 Albumin/Globulin Ratio 0.8 L Arterial Blood Potassium Venous Blood Potassium 5.3 H 05/14/18 05/14/18 09:15 11:50 WBC RBC Hgb Hct MCV MCH MCHC RDW Plt Count MPV Neut % (Auto) Lymph % (Auto) [place] % (Auto) Eos % (Auto) Baso % (Auto) Lymph # (Auto) [place] # (Auto) Eos # (Auto) Baso # (Auto) Absolute Neuts (auto) Neutrophils % (Manual) Lymphocytes % (Manual) Monocytes % (Manual) Platelet Evaluation pCO2 53 H pO2 66.0 L 67 H HCO3 36.8 H ABG pH 7.45 ABG Total CO2 38.4 H ABG O2 Saturation 95.8 ABG O2 Content 12.7 L ABG Base Excess 11.3 H ABG Hemoglobin 9.8 L ABG Carboxyhemoglobin 2.8 H POC ABG HHb (Measured) 4.0 ABG Methemoglobin 1.1 ABG O2 Capacity 13.3 L ABG Potassium VBG pH 7.38 VBG pCO2 66.0 H* VBG HCO3 39.0 H VBG Total CO2 41.0 H VBG O2 Sat (Calc) 95.3 H VBG Base Excess 11.1 H VBG Potassium 4.4 Hgb O2 Saturation 92.0 L Sodium 156.0 H Chloride 118.0 H Glucose 351 H Lactate 3.5 H Mechanical Rate FiO2 70.0 21.0 Tidal Volume PEEP Crit Value Called To Analia Crit Value Called By Ab Blood Gas Notified Time 1205 Potassium Carbon Dioxide Anion Gap BUN Creatinine Est GFR ( Amer) Est GFR (Non-Af Amer) Random Glucose Calcium Total Bilirubin AST ALT Alkaline Phosphatase Total Protein Albumin Globulin Albumin/Globulin Ratio Arterial Blood Potassium Venous Blood Potassium 4.4 Radiology Impressions: Radiology Impressions Chest X-Ray 05/14/18 05:00 IMPRESSION: Persistent [id number] pulmonary vascular congestion with increased limited patchy infiltrate right perihilar region. Limited patchy density seen the right apex and retrocardiac left base. Trace right pleural effusion remains. Critical Care Progress Note - Nutrition Nutrition: Nutrition Category Date Time Status NPO Diet [DIET] Diets 05/06/18 Breakfast Ordered Addendum Addendum: 05/14/18 16:16 MICU Attending Addendum: Patient seen and examined with housestaff. 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 Yesterday, given hypotension, tachycardia gave 500cc was able to titrate him off Levophed rec'd another 500c bolus in the evening yesterday Likely he is intravascularly dry given his rising BUN/CR ratio (pre-renal) and rising bicarb causing a contraction alkalosis Still considering sepsis despite being on broad spectrum abx and fungal follow up blood cx which were repeated cont tube feeds His hypoxia may be more from inflamm causes rather than cardiogenic pulm edema. On steroids for possible pneumonitis. Cont abx as per ID as well. will try to increase his sedation today to allow better ventilation in the setting of his ARDS cardio on board managing his Afib his cardizem drip is likely contributing to hypotensive episodes as well start PO Cardizem 30 q 6h (he was on PO cardizem CD before this event) goal to triate off cardizem drip and maintain HR < 100 with PO cardizem on lovenox for anticoag Rest of care as above Irma Chan MD MICU Attending CC Time 35 mins
[2018-05-14] MEDS: Micafungin 100 MG in Sodium Chloride 0.9% 100 ML IV SCH (09:35)
--- NOTE | 2018-05-14 11:29 | PN ---
DATE: 05/14/2018 REASON FOR CONSULTATION AND FOLLOWUP: Status post respiratory failure; [id number] myocardial infarction; lung CA with metastases; atrial fibrillation with rapid rate now rate controlled, paroxysmal, goes back to sinus and then reverses back to AFib. SUBJECTIVE: Patient remained on vent, sedated. OBJECTIVE: GENERAL: Not in apparent distress, on sedation IV vent as well as Cardizem 50 mg an hour. VITAL SIGNS: Temperature afebrile, heart rate 97, and blood pressure 130/80. HEENT: PERRLA. Extraocular muscles intact. NECK: Supple. No carotid bruit or thyromegaly. CHEST: Clear to auscultation. Scattered rhonchi and rales notes at the base, decreased air entry at the right side. HEART: S1 and S2, regular. ABDOMEN: Soft. EXTREMITIES: Clubbing and cyanosis is negative. LABORATORY DATA: Blood workup; WBC 17.2, hemoglobin 9.4, hematocrit 35.3 and platelet count 110. Chemistry shows sodium 150, potassium 5.1, chloride 102, carbon dioxide 40, anion gap of 3, BUN 61 and creatinine 0.8. Total protein 4.9, albumin 2.2 and albumin globulin ratio of 0.9. Chest x-ray consist of mild congestion, patchy infiltrate on right side. IMPRESSION: A 77-year-old male with a past medical history significant for lung cancer with metastases, admitted initially with failure to thrive, history of paroxysmal atrial fibrillation on sotalol and anticoagulation as well as verapamil. In the floor, intubated since then patient remain intubated, unable to wean off. Patient back and forth atrial fibrillation and then converted to normal sinus rhythm back again to atrial fibrillation on Cardizem drip and Lovenox is being fed through the nasogastric tube. Couple of time, patient was aseptic, required Levophed to support the blood pressure. Severe protein-calorie malnutrition is not present on admission. RECOMMENDATION: We will give a 2 doses of IV albumin to increase the plasma and cardiac pressure stat followed by 4 doses and then we will try to wean off with Cardizem and put p.o. Cardizem if heart rate is stable. Continue Lovenox. Overall, patient's condition is critical. penitentiary prognosis is guarded. We will follow with you. Thank you Dr. Bullard for providing us the opportunity in taking care of the patient, Lyle. We will follow with you. Aura Orozco MD
[2018-05-14 12:06] LABS: VENOUS BLOOD GAS BASE EXCESS 11.1 mmol/L (0.0-2.0); VENOUS BLOOD GAS PO2 67 mm/Hg (30-55); VENOUS BLOOD PH 7.38 (7.32-7.43)
--- NOTE | 2018-05-14 14:40 | PN ---
DATE: 05/14/2018 PULMONARY CRITICAL CARE PROGRESS NOTE REFERRING PHYSICIAN: Dr. Briggs. SUBJECTIVE: The patient remains sedated and intubated, presently with rectal tube. This morning, the patient was febrile. During visit at this time, no fever noted. We will check the vital signs. OBJECTIVE: VITAL SIGNS: Blood pressure 121/59, pulse 68, temperature 95.7, and oxygen saturation 98% on ventilator. GENERAL: Intubated and sedated. HEENT: Endotracheal tube in place. NECK: Supple. No JVD. RESPIRATORY: Fair airflow bilaterally. CARDIOVASCULAR: S1, S2. ABDOMEN: Soft. No distention. No organomegaly. EXTREMITIES: Bilateral upper and lower extremity edema. NEUROLOGIC: Intubated and sedated. MEDICATIONS: Tylenol 650 rectally every 6 hours p.r.n. fever greater than 100.4, Tylenol 650 every 6 hours via NG tube for fever greater than 100.4, albumin Human 25% 12.5 g IV every 6 hours, aspirin 81 mg daily, Pulmicort 2.5 mg every 12 hours, Precedex 400 mcg every 24 hours p.r.n., dextrose 5% of water 1000 mL p.r.n., Cardizem 120 mg daily, Cardizem 30 mg nasogastric 4 times a day, Cardizem 100 mg at 10 mL per hour IV every 10 hours p.r.n., Lovenox 60 mg subcu every 12 hours, Dilaudid 0.5 mg every 4 hours p.r.n., Humalog siding scale a.c. and at bedtime, Xopenex 0.63 mg inhalation every 6 hours p.r.n., Xopenex 0.63 mg inhalation 3 times a day, meropenem 1 g every 8 hours, Solu-Medrol 60 mg every 6 hours, micafungin 100 mg daily, Levophed 4 mg in 250 mL at 15 mL/hour IV p.r.n., Protonix 40 mg daily, sotalol 40 mg twice a day, vancomycin 1 g every 12 hours, verapamil 2.5 mg every 6 hours p.r.n., and verapamil 40 mg 3 times a day. LABORATORY DATA: Reviewed. WBC 7.2, RBC 3.35, hemoglobin 9.4, hematocrit 33.5, and platelets 110. PCO2 of 53, pO2 of 66, HCO3 of 36.8. ABG pH 7.45 and FiO2 of 70. Sodium 150, potassium 5.1, chloride 112, carbon dioxide 40, anion gap 3, BUN 61, creatinine 0.8, GFR greater than 60, random glucose 344, calcium 7.5, total bilirubin 0.6, AST 365, ALT 403, alkaline phosphatase 248, total protein 4.9, albumin 2.2, globulin 2.5 and albumin-globulin ratio 0.8. Venous blood potassium is 5.3, repeat is 4.4. C. diff final negative. Blood cultures preliminary, no growth after 24 hours. Chest x-ray shows persistent mild to moderate pulmonary vascular congestion with increased limited patchy infiltrate right perihilar region, limited patchy densities seen in the right apex and retrocardiac left base, trace right pleural effusion remains. IMPRESSION AND PLAN: Multiorgan dysfunction, acute lung injury, unknown cause, could be healthcare associated pneumonia, could be chemotherapy-induced pneumonitis, unresectable small cell lung cancer, chronic obstructive lung disease, paroxysmal atrial fibrillation, respiratory failure on ventilator; cardiac infarction, failure to thrive, sepsis, atrial fibrillation, renal failure, continue antibiotic therapy, covering broad-spectrum antibiotics. Continue steroids. Continue present vent settings. Continue inhaled bronchodilators. Maintaining an oxygen saturation 92% or better. The patient with poor prognosis. We will repeat chest x-ray, labs, ABGs in the morning. Critical care time spent more than 35 minutes. The patient was seen and examined with Dr. Yi. Discussed assessment and plan as described above. Thank you for this consult. We will follow with you. Juan Carlos Paul APN Aura Yi MD
[2018-05-14] MEDS: Albumin Human 25% (12.5 gm/50 ml) IV SCH ×2 (15:13→21:23)
--- NOTE | 2018-05-14 15:14 | CP.PCM.PN ---
Subjective - Date & Time of Evaluation Date of Evaluation: 05/14/18 Time of Evaluation: 14:40 - Subjective Subjective: Patient continues to be on the ventilator, still with low grade fevers, not responsive. Objective - Vital Signs/Intake and Output Vital Signs (last 24 hours): Temp Pulse Resp BP Pulse Ox 97.7 F 97 H 28 H 99/55 L 95 05/14/18 03:54 05/14/18 04:00 05/11/18 07:23 05/14/18 03:37 05/14/18 03:37 Intake and Output: 05/13/18 05/14/18 18:59 06:59 Intake Total 1613 332 Output Total 1850 Balance -237 332 - Medications Medications: Current Medications Acetaminophen (Tylenol 650 Mg Supp) 650 mg RC Q6H PRN PRN Reason: Fever >100.4 F Last Admin: 05/10/18 20:55 Dose: 650 mg Aspirin (Aspirin Chewable) 81 mg PO DAILY [facility] Last Admin: 05/13/18 10:41 Dose: 81 mg Budesonide (Pulmicort Respules) 0.5 mg IH [id number] [facility] Last Admin: 05/13/18 20:00 Dose: 0.5 mg Dextrose (Dextrose 50% Inj) 0 ml IV STAT PRN; Protocol PRN Reason: Hypoglycemia Protocol Diltiazem HCl (Cardizem Cd) 120 mg PO DAILY [facility] Last Admin: 05/07/18 11:16 Dose: Not Given Enoxaparin Sodium (Lovenox) 60 mg SC Q12H [facility]; Protocol Last Admin: 05/13/18 21:38 Dose: 60 mg Hydromorphone HCl (Dilaudid) 0.5 mg IVP Q4H PRN PRN Reason: Pain, severe (8-10) Last Admin: 05/13/18 12:46 Dose: 0.5 mg Meropenem (Merrem Iv 1 Gm Premix) 1 gm in 50 mls @ 100 mls/hr IVPB Q8 [facility]; Protocol Last Admin: 05/14/18 06:32 Dose: 100 mls/hr Vancomycin HCl (Vancomycin 1gm) 1 gm in 250 mls @ 167 mls/hr IVPB Q12H [facility]; Protocol Last Admin: 05/14/18 03:38 Dose: 167 mls/hr Dexmedetomidine HCl (Precedex 400mcg/100ml) 400 mcg in 100 mls @ 3.357 mls/hr IV .Q24H PRN; Protocol PRN Reason: Sedation Last Admin: 05/14/18 03:26 Dose: 0.8 mcg/kg/hr, 13.426 mls/hr Dextrose (Dextrose 5% In Water 1000 Ml) 1,000 mls @ 0 mls/hr IV .Q0M PRN; Protocol PRN Reason: Hypoglycemia Protocol Micafungin Sodium 100 mg/ (Sodium Chloride) 100 mls @ 100 mls/hr IV DAILY [facility]; Protocol Stop: 05/17/18 13:16 Last Admin: 05/13/18 10:41 Dose: 100 mls/hr diltiaZEM IVPB 100mg in NS (Cardizem 100mg In Ns) 100 mls @ 10 mls/hr IV .Q10H PRN; Protocol PRN Reason: TITRATE PER MD ORDER Last Titration: 05/14/18 03:50 Dose: 10 mg/hr, 10 mls/hr NOREPINEPHRINE BIT/0.9 % NACL (Levophed 4 Mg/ 250 Ml Ns Premixed) 4 mg in 250 mls @ 15 mls/hr IV .[id number] PRN; Protocol PRN Reason: TITRATE PER MD ORDER Last Titration: 05/13/18 12:00 Dose: 0 mcg/min, 0 mls/hr Insulin Human Lispro (Humalog High) 0 units SC ACHS [facility]; Protocol Last Admin: 05/13/18 22:00 Dose: Not Given Levalbuterol HCl (Xopenex) 0.63 mg IH [id number] PRN PRN Reason: Shortness of Breath Last Admin: 05/08/18 03:00 Dose: 0.63 mg Levalbuterol HCl (Xopenex) 0.63 mg IH TIDRESP [facility] Last Admin: 05/13/18 20:00 Dose: 0.63 mg Methylprednisolone (Solu-Medrol) 60 mg IVP Q6H [facility] Last Admin: 05/14/18 03:39 Dose: 60 mg Pantoprazole Sodium (Protonix Ec Tab) 40 mg PO 0600 [facility] Last Admin: 05/08/18 05:00 Dose: 40 mg Pantoprazole Sodium (Protonix Inj) 40 mg IVP DAILY [facility] Last Admin: 01/27/19 10:41 Dose: 40 mg Sotalol HCl (Betapace) 40 mg PO BID [facility] Last Admin: 05/11/18 09:16 Dose: Not Given Verapamil HCl (Calan Tab) 40 mg PO TID [facility] Last Admin: 05/11/18 09:16 Dose: Not Given Verapamil HCl (Verapamil Inj) 2.5 mg IVP Q6 PRN PRN Reason: FOR HR GREATER THAN 130 Last Admin: 05/13/18 05:11 Dose: 2.5 mg - Labs Labs: 05/13/18 06:00 05/13/18 14:44 PT 25.7 SECONDS (9.4-12.5) H 05/07/18 06:30 INR 2.20 05/07/18 06:30 APTT 25.5 Seconds (25.1-36.5) 05/07/18 06:30 - Constitutional Appears: In Acute Distress, Chronically Ill, Other (intubated, not responsive) - ENT Exam Additional comments: ET tube in place - Respiratory Exam Respiratory Exam: Decreased Breath Sounds Additional comments: right anterior chest wall port in place - Cardiovascular Exam Cardiovascular Exam: +S1, +S2 - GI/Abdominal Exam GI & Abdominal Exam: Soft. 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
[2018-05-14] MEDS: HYDROmorphone 0.5 mg/0.5 ml ISec IVP PRN (21:24)
[2018-05-14 23:19] LABS: VENOUS BLOOD GAS BASE EXCESS 12.1 mmol/L (0.0-2.0); VENOUS BLOOD GAS PO2 50 mm/Hg (30-55); VENOUS BLOOD PH 7.37 (7.32-7.43)
[2018-05-15] MEDS: Dexmedetomidine 400mcg/100mL 400 MCG/100 ML BOTTLE IV PRN ×4 (01:43→23:25)
[2018-05-15] MEDS: Levalbuterol 0.63 MG/3 ML Inhal Soln UD IH PRN (02:05)
[2018-05-15] MEDS: Vancomycin 1gm in NS 250ml 1 GM/250 ML BAG IVPB SCH ×2 (02:35→14:47)
[2018-05-15] MEDS: Albumin Human 25% (12.5 gm/50 ml) IV SCH ×3 (02:35→15:21)
[2018-05-15 03:24] LABS: VENOUS BLOOD GAS BASE EXCESS 13.5 mmol/L (0.0-2.0); VENOUS BLOOD GAS PO2 90 mm/Hg (30-55)
[2018-05-15] MEDS: MethylPREDNISolone 40 mg Vial IVP SCH ×3 (04:02→21:19)
[2018-05-15 05:13] LABS: ARTERIAL BLOOD GAS HCO3 39.8 mmol/L (21-28); ARTERIAL BLOOD GAS HEMOGLOBIN 7.8 g/dL (11.7-17.4); ARTERIAL BLOOD GAS O2 CAPACITY 10.7 mL/dl (16-24); ARTERIAL BLOOD GAS O2 CONTENT 10.5 ML/dl (15-23); ARTERIAL BLOOD GAS PCO2 56 mm/Hg (35-45); ARTERIAL BLOOD GAS PH 7.46 (7.35-7.45); ARTERIAL BLOOD GAS TCO2 41.5 mmol.L (22-28)
[2018-05-15] MEDS ORDERED: Digoxin 500 mcg/2ml (0.5 mg/2ml) Inj ONE (05:21)
[2018-05-15] MEDS ORDERED: Digoxin 500 mcg/2ml (0.5 mg/2ml) Inj IVP ONE ×2 (05:21→09:48)
[2018-05-15] MEDS: HYDROmorphone 0.5 mg/0.5 ml ISec IVP PRN (05:23)
[2018-05-15] MEDS: Meropenem IV 1 gm in NS 1 GM/50 ML BAG IVPB SCH ×3 (06:06→21:19)
[2018-05-15 07:09] LABS: ALB/GLOB RATIO 1.2 (1.1-1.8); ALT/SGPT 367 U/L (7-56); AST/SGOT 124 U/L (17-59); BLOOD UREA NITROGEN 62 mg/dL (7-21); CALCIUM 8.3 mg/dL (8.4-10.5); GFR NON-AFRICAN AMERICAN > 60
[2018-05-15 07:16] LABS: HEMOGLOBIN 8.2 g/dL (14.0-18.0); MEAN CELL VOLUME 102.1 fl (80.0-105.0); MEAN CORPUSCULAR HEMOGLOBIN 28.4 pg (25.0-35.0); MEAN CORPUSCULAR HGB CONC 27.8 g/dl (31.0-37.0); MEAN PLATELET VOLUME 12.3 fl (7.0-11.0); PLATELET COUNT 102 10^3/uL (120.0-450.0); RBC 2.89 10^6/uL (3.5-6.1); RED CELL DISTRIBUTION WIDTH 20.2 % (11.5-14.5); WHITE BLOOD COUNT 16.3 10^3/uL (4.5-11.0)
[2018-05-15] MEDS: Levalbuterol 0.63 MG/3 ML Inhal Soln UD IH SCH ×3 (07:57→19:36)
[2018-05-15] MEDS: Budesonide 0.5 mg/2 ml Inhal Susp UD IH SCH ×2 (07:57→19:36)
[2018-05-15 08:07] LABS: CORRECTED WBC 15.5 K/mm3 (4.5-11.0); LYMPHOCYTE 1 % (22.0-35.0); MONOCYTE 3 % (1.0-6.0); NEUTROPHIL 96 % (50.0-70.0); NUCLEATED RED BLOOD CELL 5 %; PLATELET ESTIMATE LOW (NORMAL)
[2018-05-15] MEDS: Insulin Lispro (HUMAlog) HIGH Coverage SC SCH ×4 (08:44→22:42)
[2018-05-15] MEDS: Micafungin 100 MG in Sodium Chloride 0.9% 100 ML IV SCH (09:40)
[2018-05-15] MEDS: Fentanyl 1000mcg/100ml NS 1,000 MCG/100 ML BAG IV PRN (09:49)
--- NOTE | 2018-05-15 09:49 | RAD ---
Date of service: 05/15/2018 HISTORY: evaluate congestion COMPARISON: 05/14/2018 FINDINGS: LUNGS: No change in diffuse bilateral interstitial infiltrate. There is or focal opacity in the mid right lung again unchanged from prior examination. Possible pneumonia. Follow-up advised. PLEURA: No significant pleural effusion identified, no pneumothorax apparent. CARDIOVASCULAR: No aortic atherosclerotic calcification present. Normal cardiac size. No congestive change. Right central venous infusion port. ET tube and NG tube unchanged. OSSEOUS STRUCTURES: No significant abnormalities. VISUALIZED UPPER ABDOMEN: Normal. OTHER FINDINGS: None. IMPRESSION: Diffuse interstitial infiltrate. Focal opacity mid right lung. Possible pneumonia. Follow-up advised. Lines and tubes unchanged.
[2018-05-15] MEDS: Enoxaparin 60 mg Syringe SC SCH ×2 (09:51→10:15)
--- NOTE | 2018-05-15 10:08 | CP.CCUPN ---
<Haley Mckeon - Last Filed: 05/15/18 11:42> CCU Subjective - Physician Review Subjective (Free Text): Haley Mckeon, PGY-1, ICU Progress Note for Dr. Gtz Patient seen and evaluated at bedside. Patient was tachycardic overnight in the 130s to 140s for 20 minute intervals. Patient was given verapamil 5 mg, digoxin x 1, and started on a cardizem drip at 15 cc/hr. Patient is currently on cardizem drip at 5 cc/hr. Precedex was decreased to 0.6 overnight. Patient is currently intubated and sedated with vent settings of 400/18/12/80%. CCU Objective - Vital Signs / Intake & Output Vital Signs (Last 4 hours): Vital Signs Pulse Resp BP Pulse Ox 05/15/18 10:00 110 H 138/77 05/15/18 09:37 102 H 138/77 05/15/18 08:01 26 H 96 05/15/18 06:27 115 H Intake and Output (Last 8hrs): Intake & Output 05/14/18 05/15/18 05/15/18 22:59 06:59 14:59 Intake Total 2230 1986 0 Output Total 900 1300 Balance 1330 686 0 Weight 158 lb Intake: IV 910 666 0 Left 135 Right Subclavian 570 541 Tube Feeding 720 720 Other 600 600 Output: Urine 900 900 Urethral (Yang) 900 900 Stool 400 Emesis 0 0 Oral Regurgitation 0 0 Other 0 0 Other: # Bowel Movements 2 2 - Physical Exam Head: Positive for: Atraumatic, Normocephalic Pupils: Positive for: PERRL Extroacular Muscles: Positive for: EOMI Conjunctiva: Positive for: Normal Mouth: Positive for: Moist Mucous Membranes Neck: Positive for: Normal Range of Motion Respiratory/Chest: Positive for: Respiratory Distress, Wheezes, Rales, Other (currently on ventilator). Negative for: Accessory Muscle Use Cardiovascular: Positive for: Normal S1, S2, Irregular Rhythm. Negative for: Murmurs Abdomen: Negative for: Tenderness, Distention, Peritoneal Signs Back: Positive for: Normal Inspection Upper Extremity: Positive for: Normal Inspection. Negative for: Cyanosis, Edema Lower Extremity: Positive for: Normal Inspection. Negative for: Edema Neurological: Positive for: Other (intubated) Skin: Positive for: Warm, Dry, Normal Color, Other (R IJ central port noted). Negative for: Rashes - Medications Active Medications: Active Medications Generic Name Dose Route Start Last Admin Trade Name Freq PRN Reason Stop Dose Admin Acetaminophen 650 mg 05/10/18 20:29 05/10/18 20:55 Tylenol 650 Mg Supp RC 650 mg Q6H PRN Administration Fever >100.4 F Acetaminophen 650 mg 05/14/18 09:13 05/14/18 09:29 Tylenol 650mg/20.3ml Solution Ud NG 650 mg Q6H PRN Administration FEVER > 100.4 Albumin Human 12.5 gm 05/14/18 14:45 05/15/18 09:00 Albumin Human 25% (12.5 Gm/50 Ml) IV 12.5 gm Q6H ZARI Administration Aspirin 81 mg 05/12/18 11:30 05/15/18 09:40 Aspirin Chewable PO 81 mg DAILY ZARI Administration Budesonide 0.5 mg 04/27/18 20:00 05/15/18 07:57 Pulmicort Respules IH 0.5 mg [id number] ZARI Administration Dextrose 0 ml 05/09/18 10:48 Dextrose 50% Inj IV STAT PRN Hypoglycemia Protocol Protocol Diltiazem HCl 120 mg 04/27/18 10:00 05/07/18 11:16 Cardizem Cd PO Not Given DAILY ZARI Diltiazem HCl 60 mg 05/15/18 09:00 05/15/18 10:00 Cardizem PO Not Given TID ZARI Enoxaparin Sodium 60 mg 05/07/18 10:15 05/15/18 09:51 Lovenox SC 60 mg Q12H ZARI Administration Protocol Hydromorphone HCl 0.5 mg 05/13/18 00:26 05/15/18 05:23 Dilaudid IVP 0.5 mg Q4H PRN Administration Pain, severe (8-10) Meropenem 1 gm in 50 mls @ 100 mls/hr 05/05/18 15:15 05/15/18 06:06 Merrem Iv 1 Gm Premix IVPB 100 mls/hr Q8 ZARI Administration Protocol Vancomycin HCl 1 gm in 250 mls @ 167 mls/hr 05/05/18 15:15 05/15/18 02:35 Vancomycin 1gm IVPB 167 mls/hr Q12H ZARI Administration Protocol Dexmedetomidine HCl 400 mcg in 100 mls @ 3.357 mls/hr 05/09/18 10:31 05/15/18 01:43 Precedex 400mcg/100ml IV 0.7 mcg/kg/hr .Q24H PRN 11.748 mls/hr Sedation Administration Protocol 0.2 MCG/KG/HR Dextrose 1,000 mls @ 0 mls/hr 05/09/18 10:48 Dextrose 5% In Water 1000 Ml IV .Q0M PRN Hypoglycemia Protocol Protocol Per Protocol Micafungin Sodium 100 mg/ 100 mls @ 100 mls/hr 05/10/18 13:15 05/15/18 09:40 Sodium Chloride IV 05/17/18 13:16 100 mls/hr DAILY ZARI Administration Protocol diltiaZEM IVPB 100mg in NS 100 mls @ 10 mls/hr 05/11/18 08:12 05/15/18 08:00 Cardizem 100mg In Ns IV 5 mg/hr .Q10H PRN 5 mls/hr TITRATE PER MD ORDER Titration Protocol 10 MG/HR NOREPINEPHRINE BIT/0.9 % NACL 4 mg in 250 mls @ 15 mls/hr 05/12/18 19:49 05/13/18 12:00 Levophed 4 Mg/ 250 Ml Ns Premixed IV 0 mcg/min .[id number] PRN 0 mls/hr TITRATE PER MD ORDER Titration Protocol 4 MCG/MIN Fentanyl Citrate 1,000 mcg in 100 mls @ 2 mls/hr 05/14/18 16:24 05/15/18 09:49 Fentanyl Citrate/Sodium Chloride 1 Mg/100 Ml IV 20 mcg/hr .Q24H PRN 2 mls/hr TITRATE PER MD ORDER Administration Protocol 20 MCG/HR Insulin Human Lispro 0 units 05/09/18 11:30 05/15/18 08:44 Humalog High SC 10 u ACHS ZARI Administration Protocol Levalbuterol HCl 0.63 mg 04/27/18 12:16 05/15/18 02:05 Xopenex IH 0.63 mg [id number] PRN Administration Shortness of Breath Levalbuterol HCl 0.63 mg 04/28/18 20:00 05/15/18 07:57 Xopenex IH 0.63 mg TIDRESP ZARI Administration Methylprednisolone 60 mg 05/11/18 10:01 05/15/18 09:36 Solu-Medrol IVP 60 mg Q6H ZARI Administration Pantoprazole Sodium 40 mg 05/02/18 21:00 05/08/18 05:00 Protonix Ec Tab PO 40 mg 0600 ZARI Administration Pantoprazole Sodium 40 mg 05/09/18 10:00 05/14/18 10:54 Protonix Inj IVP 40 mg DAILY ZARI Administration Sotalol HCl 40 mg 05/09/18 10:00 05/11/18 09:16 Betapace PO Not Given BID ZARI Verapamil HCl 40 mg 05/10/18 14:00 05/11/18 09:16 Calan Tab PO Not Given TID ZARI Verapamil HCl 2.5 mg 05/10/18 12:31 05/15/18 04:01 Verapamil Inj IVP 2.5 mg Q6 PRN Administration FOR HR GREATER THAN 130 - Patient Studies Lab Studies: Microbiology Studies 05/13/18 09:25 Blood Culture - Preliminary Blood NO GROWTH AFTER 48 HOURS 05/13/18 22:30 Urine Culture - Final Urine Random No Growth (<1,000 CFU/ML) 05/14/18 07:45 Gram Stain - Final Trachasp 05/11/18 18:27 Gram Stain - Final Trachasp Sputum Culture - Final NORMAL ORAL ALFIE 05/13/18 17:30 C. difficile Antigen & Toxins A,B - Final Stool 05/13/18 10:05 Blood Culture - Preliminary Blood NO GROWTH AFTER 24 HOURS 05/09/18 08:30 Blood Culture - Final Blood-Venous NO GROWTH AFTER 5 DAYS Gram Stain - Final TEST NOT PERFORMED 05/09/18 08:10 Blood Culture - Final Blood-Venous NO GROWTH AFTER 5 DAYS Gram Stain - Final TEST NOT PERFORMED Lab Studies 05/15/18 05/15/18 05/15/18 Range/Units 06:30 05:40 05:05 WBC 16.3 H (4.5-11.0) 10^3/uL RBC 2.89 L (3.5-6.1) 10^6/uL Hgb 8.2 L (14.0-18.0) g/dL Hct 29.5 L (42.0-52.0) % MCV 102.1 (80.0-105.0) fl MCH 28.4 (25.0-35.0) pg MCHC 27.8 L (31.0-37.0) g/dl RDW 20.2 H (11.5-14.5) % Plt Count 102 L (120.0-450.0) 10^3/uL MPV 12.3 H (7.0-11.0) fl Corrected WBC (Man) 15.5 H (4.5-11.0) K/mm3 Neutrophils % (Manual) 96 H (50.0-70.0) % Lymphocytes % (Manual) 1 L (22.0-35.0) % Monocytes % (Manual) 3 (1.0-6.0) % Nucleated RBC % 5 % Platelet Evaluation Low (NORMAL) pCO2 56 H (35-45) mm/Hg pO2 76.0 L (30-55) mm/Hg HCO3 39.8 H (21-28) mmol/L ABG pH 7.46 H (7.35-7.45) ABG Total CO2 41.5 H (22-28) mmol.L ABG O2 Saturation 98.0 (95-98) % ABG O2 Content 10.5 L (15-23) ML/dl ABG Base Excess 14.4 H (-2.0-3.0) mmol/L ABG Hemoglobin 7.8 L (11.7-17.4) g/dL ABG Carboxyhemoglobin 2.8 H (0.5-1.5) % POC ABG HHb (Measured) 1.9 (0-5) % ABG Methemoglobin 1.1 (0.0-3.0) % ABG O2 Capacity 10.7 L (16-24) mL/dl VBG pH (7.32-7.43) VBG pCO2 (40-60) VBG HCO3 (21-28) mmol/l VBG Total CO2 (22-28) mmol.L VBG O2 Sat (Calc) (40-65) % VBG Base Excess (0.0-2.0) mmol/L VBG Potassium (3.6-5.2) mmol/L Hgb O2 Saturation 94.3 L (95.0-98.0) % Sodium 152 H (132-148) mmol/L Chloride 113 H (98-107) mmol/L Glucose (75-110) mg/dl Lactate (0.7-2.1) mmol/L FiO2 80.0 % Crit Value Called To Crit Value Called By Blood Gas Notified Time Potassium 5.6 H* (3.6-5.0) mmol/L Carbon Dioxide 38 H (21-33) mmol/L Anion Gap 7 L (10-20) BUN 62 H (7-21) mg/dL Creatinine 0.8 (0.8-1.5) mg/dl Est GFR ( Amer) > 60 Est GFR (Non-Af Amer) > 60 Random Glucose 286 H (70-110) mg/dL Calcium 8.3 L (8.4-10.5) mg/dL Total Bilirubin 0.8 (0.2-1.3) mg/dL AST 124 H D (17-59) U/L ALT 367 H (7-56) U/L Alkaline Phosphatase 220 H (38-126) U/L Total Protein 5.5 L (5.8-8.3) g/dL Albumin 3.0 (3.0-4.8) g/dL Globulin 2.5 gm/dL Albumin/Globulin Ratio 1.2 (1.1-1.8) Venous Blood Potassium (3.6-5.2) mmol/L 05/15/18 05/14/18 05/14/18 Range/Units 03:00 23:00 11:50 WBC (4.5-11.0) 10^3/uL RBC (3.5-6.1) 10^6/uL Hgb (14.0-18.0) g/dL Hct (42.0-52.0) % MCV (80.0-105.0) fl MCH (25.0-35.0) pg MCHC (31.0-37.0) g/dl RDW (11.5-14.5) % Plt Count (120.0-450.0) 10^3/uL MPV (7.0-11.0) fl Corrected WBC (Man) (4.5-11.0) K/mm3 Neutrophils % (Manual) (50.0-70.0) % Lymphocytes % (Manual) (22.0-35.0) % Monocytes % (Manual) (1.0-6.0) % Nucleated RBC % % Platelet Evaluation (NORMAL) pCO2 (35-45) mm/Hg pO2 90 H 50 67 H (30-55) mm/Hg HCO3 (21-28) mmol/L ABG pH (7.35-7.45) ABG Total CO2 (22-28) mmol.L ABG O2 Saturation (95-98) % ABG O2 Content (15-23) ML/dl ABG Base Excess (-2.0-3.0) mmol/L ABG Hemoglobin (11.7-17.4) g/dL ABG Carboxyhemoglobin (0.5-1.5) % POC ABG HHb (Measured) (0-5) % ABG Methemoglobin (0.0-3.0) % ABG O2 Capacity (16-24) mL/dl VBG pH 7.40 7.37 7.38 (7.32-7.43) VBG pCO2 67.0 H* 70.0 H* 66.0 H* (40-60) VBG HCO3 41.5 H 40.5 H 39.0 H (21-28) mmol/l VBG Total CO2 43.6 H 42.6 H 41.0 H (22-28) mmol.L VBG O2 Sat (Calc) 99.2 H 86.1 H 95.3 H (40-65) % VBG Base Excess 13.5 H 12.1 H 11.1 H (0.0-2.0) mmol/L VBG Potassium 5.5 H 4.9 4.4 (3.6-5.2) mmol/L Hgb O2 Saturation (95.0-98.0) % Sodium 156.0 H 157.0 H 156.0 H (132-148) mmol/L Chloride 119.0 H 118.0 H 118.0 H (98-107) mmol/L Glucose 229 H 245 H 351 H (75-110) mg/dl Lactate 2.2 H 2.3 H 3.5 H (0.7-2.1) mmol/L FiO2 21.0 21.0 21.0 % Crit Value Called To Jignseh segal rn Siri 0ye Analia Crit Value Called By Jean Atc Ab Blood Gas Notified Time [phone] Potassium (3.6-5.0) mmol/L Carbon Dioxide (21-33) mmol/L Anion Gap (10-20) BUN (7-21) mg/dL Creatinine (0.8-1.5) mg/dl Est GFR ( Amer) Est GFR (Non-Af Amer) Random Glucose (70-110) mg/dL Calcium (8.4-10.5) mg/dL Total Bilirubin (0.2-1.3) mg/dL AST (17-59) U/L ALT (7-56) U/L Alkaline Phosphatase (38-126) U/L Total Protein (5.8-8.3) g/dL Albumin (3.0-4.8) g/dL Globulin gm/dL Albumin/Globulin Ratio (1.1-1.8) Venous Blood Potassium 5.5 H 4.9 4.4 (3.6-5.2) mmol/L Laboratory Results - last 24 hr 05/14/18 05/14/18 05/15/18 11:50 23:00 03:00 WBC RBC Hgb Hct MCV MCH MCHC RDW Plt Count MPV Corrected WBC (Man) Neutrophils % (Manual) Lymphocytes % (Manual) Monocytes % (Manual) Nucleated RBC % Platelet Evaluation pCO2 pO2 67 H 50 90 H HCO3 ABG pH ABG Total CO2 ABG O2 Saturation ABG O2 Content ABG Base Excess ABG Hemoglobin ABG Carboxyhemoglobin POC ABG HHb (Measured) ABG Methemoglobin ABG O2 Capacity VBG pH 7.38 7.37 7.40 VBG pCO2 66.0 H* 70.0 H* 67.0 H* VBG HCO3 39.0 H 40.5 H 41.5 H VBG Total CO2 41.0 H 42.6 H 43.6 H VBG O2 Sat (Calc) 95.3 H 86.1 H 99.2 H VBG Base Excess 11.1 H 12.1 H 13.5 H VBG Potassium 4.4 4.9 5.5 H Hgb O2 Saturation Sodium 156.0 H 157.0 H 156.0 H Chloride 118.0 H 118.0 H 119.0 H Glucose 351 H 245 H 229 H Lactate 3.5 H 2.3 H 2.2 H FiO2 21.0 21.0 21.0 Crit Value Called To Analia Horner 0ye Jignesh segal rn Crit Value Called By Ab Atc Yy Blood Gas Notified Time [id number] Potassium Carbon Dioxide Anion Gap BUN Creatinine Est GFR ( Amer) Est GFR (Non-Af Amer) Random Glucose Calcium Total Bilirubin AST ALT Alkaline Phosphatase Total Protein Albumin Globulin Albumin/Globulin Ratio Venous Blood Potassium 4.4 4.9 5.5 H 05/15/18 05/15/18 05/15/18 05:05 05:40 06:30 WBC 16.3 H RBC 2.89 L Hgb 8.2 L Hct 29.5 L MCV 102.1 MCH 28.4 MCHC 27.8 L RDW 20.2 H Plt Count 102 L MPV 12.3 H Corrected WBC (Man) 15.5 H Neutrophils % (Manual) 96 H Lymphocytes % (Manual) 1 L Monocytes % (Manual) 3 Nucleated RBC % 5 Platelet Evaluation Low pCO2 56 H pO2 76.0 L HCO3 39.8 H ABG pH 7.46 H ABG Total CO2 41.5 H ABG O2 Saturation 98.0 ABG O2 Content 10.5 L ABG Base Excess 14.4 H ABG Hemoglobin 7.8 L ABG Carboxyhemoglobin 2.8 H POC ABG HHb (Measured) 1.9 ABG Methemoglobin 1.1 ABG O2 Capacity 10.7 L VBG pH VBG pCO2 VBG HCO3 VBG Total CO2 VBG O2 Sat (Calc) VBG Base Excess VBG Potassium Hgb O2 Saturation 94.3 L Sodium 152 H Chloride 113 H Glucose Lactate FiO2 80.0 Crit Value Called To Crit Value Called By Blood Gas Notified Time Potassium 5.6 H* Carbon Dioxide 38 H Anion Gap 7 L BUN 62 H Creatinine 0.8 Est GFR ( Amer) > 60 Est GFR (Non-Af Amer) > 60 Random Glucose 286 H Calcium 8.3 L Total Bilirubin 0.8 AST 124 H D ALT 367 H Alkaline Phosphatase 220 H Total Protein 5.5 L Albumin 3.0 Globulin 2.5 Albumin/Globulin Ratio 1.2 Venous Blood Potassium Radiology Impressions: Radiology Impressions Chest X-Ray 05/15/18 05:00 IMPRESSION: Diffuse interstitial infiltrate. Focal opacity mid right lung. Possible pneumonia. Follow-up advised. Lines and tubes unchanged. 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 Patient was diagnosed with sepsis 2/2 to HCAP. On 05/05, patient became hypoxia and was in respiratory distress. Patient subsequently intubated and sedated with propofol and versed. Will attempt sedation vacation today Plan: Neuro: S/p intubation for hypoxic repsiratory failure -Intubated on 05/05/18, currently sedated on precedex, will attempt sedation vacation today -Head CT w/o contrast on 05/10/18 showed no acute intracranial abnormalities -EEG on 05/11/18 showed abnormal EEG record that demonstrate the presence of moderate to severe non specific diffuse disturbance of cortical activity, findings are not specific. No seizures. Patient is not in status epilepticus. Cardio: Atrial flutter -EKG 05/10: Atrial flutter with 2:1 AV block with HR: 156 -Currently rated controlled, on cardizem drip at 15mg/hr. Titrate down the cardizem drip. -Levophed titrated off -Continue cardizem 30 mg QID -2 U of albumin administered yesterday as per Dr. Orozco, Cardiology, to maintain oncotic pressure. -Maintain MAP>65. NSTEMI -EKG 05/10: Atrial flutter with 2:1 AV block with HR: 156 -Troponin: 05/06/09 10.9, 9.66, 8.96, 6.33 -Continue Aspirin 81mg, topical nitroglycerin q6 -Continue Lovenox 60 mg Q12 Elevated BNP -BNP: 3240, BNP pending for today. Consider diastolic CHF -Echocardiogram 05/07: EF: 49.3%, trace AR, MR, RVSP: 50 -Stopped lasix drip as patient has been tachycardic. Patient is likely dry and has been given boluses of NS with moderate improvement in heart rate. Pulm/Oncology Hypoxic respiratory failure 2/2 to ARDS from small cell lung carcinoma vs. pneumonitis -Patient intubated and sedated with settings 400/18/12/70% -Maintain O2 saturation>92%. ABG 05/15 shows pH: 7.46, pCO2: 56, and pO2: 76 yesterday, which is improved from yesterday. -CXR: unchanged from prior CXR yesterday -As per Dr. Bullard, Heme/Onc, patient has possible pneumonitis as complication of Tecentriq treatment for SCLC -Treat Tecentriq side effect with solumedrol 60 mg Q6 -Recent PET CT shows improvement in small cell lung carcinoma -Weaning and sedation trials, Elevate bed to 30 degrees, oral protective hygiene daily, conservative fluid management COPD -Continue with Pulmicort 0.5 mg IH Q12, and xopenex 0.63 mg IH TID, solumedrol 60 mg Q6 GI: Elevated LFTs -improved today, consider dehydration vs congestive hepatopathy, will continue to trend Diet -continue jevity feedings Prophylaxis -Protonix 40 mg IV daily /Nephro: -BUN/Cr stable -Maintain euvolemia -Replace electrolytes as necessary ID: Multifocal pneumonia -CXR today shows no change from prior CXR yesterday. -Chest CT 04/27: multifocal pneumonia -Afebrile, WBC is 16.3 from 17.2, downtrending -Blood culture was negative for 5 days upon admission from 05/09. Blood culture reordered was negative for 48 hours. -Negative urine culture, tracheal aspiration culture, C. Dif stool toxin -Procal 05/05: 0.55. Repeat procal was 0.62 on 05/09/18 -Vancomycin 1 gm Q12 day 10, Merrem 1 gm Q8 day 10, Nystatin 5 mg QID Endocrinology: -Random glucose: 200s -HgbA1c: 6.2 -High SSI -10 U of regular insulin given -Continue with high dose sliding scale insulin with target glucose 140-180 Heme Anemia -Hg is 8.2 today from 9.3 yesterday -No obvious source of bleeding, will monitor. DVT prophylaxis -Lovenox 60 mg Q12 as therapeutic anticoagulation for NSTEMI Disposition: Per families wishes, patient to remain full code at this time. Will have conversation with family regarding LTAC placement. Patient seen and examined with Dr. Gtz. - Date & Time Date: 05/15/18 Time: 10:07 <Shay Gtz - Last Filed: 05/15/18 17:20> CCU Objective - Vital Signs / Intake & Output Vital Signs (Last 4 hours): Vital Signs Temp Pulse Resp BP Pulse Ox 05/15/18 15:10 98.2 F 98 H 18 98 05/15/18 14:00 90 05/15/18 13:24 90 129/70 Intake and Output (Last 8hrs): Intake & Output 05/15/18 05/15/18 05/15/18 06:59 14:59 22:59 Intake Total 1986 111 100 Output Total 1300 Balance 686 111 100 Weight 158 lb Intake: IV 666 111 100 Right Subclavian 541 Tube Feeding 720 Other 600 Output: Urine 900 Urethral (Yang) 900 Stool 400 Emesis 0 Oral Regurgitation 0 Other 0 Other: # Bowel Movements 2 - Medications Active Medications: Active Medications Generic Name Dose Route Start Last Admin Trade Name Freq PRN Reason Stop Dose Admin Acetaminophen 650 mg 05/10/18 20:29 05/10/18 20:55 Tylenol 650 Mg Supp RC 650 mg Q6H PRN Administration Fever >100.4 F Acetaminophen 650 mg 05/14/18 09:13 05/14/18 09:29 Tylenol 650mg/20.3ml Solution Ud NG 650 mg Q6H PRN Administration FEVER > 100.4 Albumin Human 12.5 gm 05/14/18 14:45 05/15/18 15:21 Albumin Human 25% (12.5 Gm/50 Ml) IV 12.5 gm Q6H ZARI Administration Aspirin 81 mg 05/12/18 11:30 05/15/18 09:40 Aspirin Chewable PO 81 mg DAILY ZARI Administration Budesonide 0.5 mg 04/27/18 20:00 05/15/18 07:57 Pulmicort Respules IH 0.5 mg [id number] ZARI Administration Dextrose 0 ml 05/09/18 10:48 Dextrose 50% Inj IV STAT PRN Hypoglycemia Protocol Protocol Diltiazem HCl 120 mg 04/27/18 10:00 05/07/18 11:16 Cardizem Cd PO Not Given DAILY ZARI Diltiazem HCl 60 mg 05/15/18 09:00 05/15/18 13:24 Cardizem PO 60 mg TID ZARI Administration Hydromorphone HCl 0.5 mg 05/13/18 00:26 05/15/18 05:23 Dilaudid IVP 0.5 mg Q4H PRN Administration Pain, severe (8-10) Meropenem 1 gm in 50 mls @ 100 mls/hr 05/05/18 15:15 05/15/18 14:46 Merrem Iv 1 Gm Premix IVPB 100 mls/hr Q8 ZARI Administration Protocol Vancomycin HCl 1 gm in 250 mls @ 167 mls/hr 05/05/18 15:15 05/15/18 14:47 Vancomycin 1gm IVPB 167 mls/hr Q12H ZARI Administration Protocol Dexmedetomidine HCl 400 mcg in 100 mls @ 3.357 mls/hr 05/09/18 10:31 05/15/18 16:12 Precedex 400mcg/100ml IV 0.6 mcg/kg/hr .Q24H PRN 10.07 mls/hr Sedation Administration Protocol 0.2 MCG/KG/HR Dextrose 1,000 mls @ 0 mls/hr 05/09/18 10:48 Dextrose 5% In Water 1000 Ml IV .Q0M PRN Hypoglycemia Protocol Protocol Per Protocol Micafungin Sodium 100 mg/ 100 mls @ 100 mls/hr 05/10/18 13:15 05/15/18 09:40 Sodium Chloride IV 05/17/18 13:16 100 mls/hr DAILY ZARI Administration Protocol diltiaZEM IVPB 100mg in NS 100 mls @ 10 mls/hr 05/11/18 08:12 05/15/18 09:00 Cardizem 100mg In Ns IV 0 mg/hr .Q10H PRN 0 mls/hr TITRATE PER MD ORDER Titration Protocol 10 MG/HR NOREPINEPHRINE BIT/0.9 % NACL 4 mg in 250 mls @ 15 mls/hr 05/12/18 19:49 05/13/18 12:00 Levophed 4 Mg/ 250 Ml Ns Premixed IV 0 mcg/min .[id number] PRN 0 mls/hr TITRATE PER MD ORDER Titration Protocol 4 MCG/MIN Fentanyl Citrate 1,000 mcg in 100 mls @ 2 mls/hr 05/14/18 16:24 05/15/18 12:00 Fentanyl Citrate/Sodium Chloride 1 Mg/100 Ml IV 60 mcg/hr .Q24H PRN 6 mls/hr TITRATE PER MD ORDER Titration Protocol 20 MCG/HR Insulin Human Lispro 0 units 05/09/18 11:30 05/15/18 17:12 Humalog High SC 2 u ACHS ZARI Administration Protocol Levalbuterol HCl 0.63 mg 04/27/18 12:16 05/15/18 02:05 Xopenex IH 0.63 mg [id number] PRN Administration Shortness of Breath Levalbuterol HCl 0.63 mg 04/28/18 20:00 05/15/18 13:18 Xopenex IH 0.63 mg TIDRESP ZARI Administration Methylprednisolone 40 mg 05/15/18 22:00 Solu-Medrol IVP Q12 ZARI Pantoprazole Sodium 40 mg 05/02/18 21:00 05/08/18 05:00 Protonix Ec Tab PO 40 mg 0600 ZARI Administration Pantoprazole Sodium 40 mg 05/09/18 10:00 05/15/18 10:00 Protonix Inj IVP 40 mg DAILY ZARI Administration Sotalol HCl 40 mg 05/09/18 10:00 05/11/18 09:16 Betapace PO Not Given BID ZARI Verapamil HCl 40 mg 05/10/18 14:00 05/11/18 09:16 Calan Tab PO Not Given TID ZARI Verapamil HCl 2.5 mg 05/10/18 12:31 05/15/18 04:01 Verapamil Inj IVP 2.5 mg Q6 PRN Administration FOR HR GREATER THAN 130 - Patient Studies Lab Studies: Microbiology Studies 05/13/18 10:05 Blood Culture - Preliminary Blood NO GROWTH AFTER 48 HOURS 05/13/18 09:25 Blood Culture - Preliminary Blood NO GROWTH AFTER 48 HOURS 05/13/18 22:30 Urine Culture - Final Urine Random No Growth (<1,000 CFU/ML) 05/14/18 07:45 Gram Stain - Final Trachasp Lab Studies 05/15/18 05/15/18 05/15/18 Range/Units 06:30 05:40 05:05 WBC 16.3 H (4.5-11.0) 10^3/uL RBC 2.89 L (3.5-6.1) 10^6/uL Hgb 8.2 L (14.0-18.0) g/dL Hct 29.5 L (42.0-52.0) % MCV 102.1 (80.0-105.0) fl MCH 28.4 (25.0-35.0) pg MCHC 27.8 L (31.0-37.0) g/dl RDW 20.2 H (11.5-14.5) % Plt Count 102 L (120.0-450.0) 10^3/uL MPV 12.3 H (7.0-11.0) fl Corrected WBC (Man) 15.5 H (4.5-11.0) K/mm3 Neutrophils % (Manual) 96 H (50.0-70.0) % Lymphocytes % (Manual) 1 L (22.0-35.0) % Monocytes % (Manual) 3 (1.0-6.0) % Nucleated RBC % 5 % Platelet Evaluation Low (NORMAL) pCO2 56 H (35-45) mm/Hg pO2 76.0 L (30-55) mm/Hg HCO3 39.8 H (21-28) mmol/L ABG pH 7.46 H (7.35-7.45) ABG Total CO2 41.5 H (22-28) mmol.L ABG O2 Saturation 98.0 (95-98) % ABG O2 Content 10.5 L (15-23) ML/dl ABG Base Excess 14.4 H (-2.0-3.0) mmol/L ABG Hemoglobin 7.8 L (11.7-17.4) g/dL ABG Carboxyhemoglobin 2.8 H (0.5-1.5) % POC ABG HHb (Measured) 1.9 (0-5) % ABG Methemoglobin 1.1 (0.0-3.0) % ABG O2 Capacity 10.7 L (16-24) mL/dl VBG pH (7.32-7.43) VBG pCO2 (40-60) VBG HCO3 (21-28) mmol/l VBG Total CO2 (22-28) mmol.L VBG O2 Sat (Calc) (40-65) % VBG Base Excess (0.0-2.0) mmol/L VBG Potassium (3.6-5.2) mmol/L Hgb O2 Saturation 94.3 L (95.0-98.0) % Sodium 152 H (132-148) mmol/L Chloride 113 H (98-107) mmol/L Glucose (75-110) mg/dl Lactate (0.7-2.1) mmol/L FiO2 80.0 % Crit Value Called To Crit Value Called By Blood Gas Notified Time Potassium 5.6 H* (3.6-5.0) mmol/L Carbon Dioxide 38 H (21-33) mmol/L Anion Gap 7 L (10-20) BUN 62 H (7-21) mg/dL Creatinine 0.8 (0.8-1.5) mg/dl Est GFR ( Amer) > 60 Est GFR (Non-Af Amer) > 60 Random Glucose 286 H (70-110) mg/dL Calcium 8.3 L (8.4-10.5) mg/dL Total Bilirubin 0.8 (0.2-1.3) mg/dL AST 124 H D (17-59) U/L ALT 367 H (7-56) U/L Alkaline Phosphatase 220 H (38-126) U/L Total Protein 5.5 L (5.8-8.3) g/dL Albumin 3.0 (3.0-4.8) g/dL Globulin 2.5 gm/dL Albumin/Globulin Ratio 1.2 (1.1-1.8) Venous Blood Potassium (3.6-5.2) mmol/L 05/15/18 05/14/18 Range/Units 03:00 23:00 WBC (4.5-11.0) 10^3/uL RBC (3.5-6.1) 10^6/uL Hgb (14.0-18.0) g/dL Hct (42.0-52.0) % MCV (80.0-105.0) fl MCH (25.0-35.0) pg MCHC (31.0-37.0) g/dl RDW (11.5-14.5) % Plt Count (120.0-450.0) 10^3/uL MPV (7.0-11.0) fl Corrected WBC (Man) (4.5-11.0) K/mm3 Neutrophils % (Manual) (50.0-70.0) % Lymphocytes % (Manual) (22.0-35.0) % Monocytes % (Manual) (1.0-6.0) % Nucleated RBC % % Platelet Evaluation (NORMAL) pCO2 (35-45) mm/Hg pO2 90 H 50 (30-55) mm/Hg HCO3 (21-28) mmol/L ABG pH (7.35-7.45) ABG Total CO2 (22-28) mmol.L ABG O2 Saturation (95-98) % ABG O2 Content (15-23) ML/dl ABG Base Excess (-2.0-3.0) mmol/L ABG Hemoglobin (11.7-17.4) g/dL ABG Carboxyhemoglobin (0.5-1.5) % POC ABG HHb (Measured) (0-5) % ABG Methemoglobin (0.0-3.0) % ABG O2 Capacity (16-24) mL/dl VBG pH 7.40 7.37 (7.32-7.43) VBG pCO2 67.0 H* 70.0 H* (40-60) VBG HCO3 41.5 H 40.5 H (21-28) mmol/l VBG Total CO2 43.6 H 42.6 H (22-28) mmol.L VBG O2 Sat (Calc) 99.2 H 86.1 H (40-65) % VBG Base Excess 13.5 H 12.1 H (0.0-2.0) mmol/L VBG Potassium 5.5 H 4.9 (3.6-5.2) mmol/L Hgb O2 Saturation (95.0-98.0) % Sodium 156.0 H 157.0 H (132-148) mmol/L Chloride 119.0 H 118.0 H (98-107) mmol/L Glucose 229 H 245 H (75-110) mg/dl Lactate 2.2 H 2.3 H (0.7-2.1) mmol/L FiO2 21.0 21.0 % Crit Value Called To Jignesh segal rn [place] 0ye Crit Value Called By Jean Atc Blood Gas Notified Time [id number] Potassium (3.6-5.0) mmol/L Carbon Dioxide (21-33) mmol/L Anion Gap (10-20) BUN (7-21) mg/dL Creatinine (0.8-1.5) mg/dl Est GFR ( Amer) Est GFR (Non-Af Amer) Random Glucose (70-110) mg/dL Calcium (8.4-10.5) mg/dL Total Bilirubin (0.2-1.3) mg/dL AST (17-59) U/L ALT (7-56) U/L Alkaline Phosphatase (38-126) U/L Total Protein (5.8-8.3) g/dL Albumin (3.0-4.8) g/dL Globulin gm/dL Albumin/Globulin Ratio (1.1-1.8) Venous Blood Potassium 5.5 H 4.9 (3.6-5.2) mmol/L Laboratory Results - last 24 hr 05/14/18 05/15/18 05/15/18 23:00 03:00 05:05 WBC RBC Hgb Hct MCV MCH MCHC RDW Plt Count MPV Corrected WBC (Man) Neutrophils % (Manual) Lymphocytes % (Manual) Monocytes % (Manual) Nucleated RBC % Platelet Evaluation pCO2 56 H pO2 50 90 H 76.0 L HCO3 39.8 H ABG pH 7.46 H ABG Total CO2 41.5 H ABG O2 Saturation 98.0 ABG O2 Content 10.5 L ABG Base Excess 14.4 H ABG Hemoglobin 7.8 L ABG Carboxyhemoglobin 2.8 H POC ABG HHb (Measured) 1.9 ABG Methemoglobin 1.1 ABG O2 Capacity 10.7 L VBG pH 7.37 7.40 VBG pCO2 70.0 H* 67.0 H* VBG HCO3 40.5 H 41.5 H VBG Total CO2 42.6 H 43.6 H VBG O2 Sat (Calc) 86.1 H 99.2 H VBG Base Excess 12.1 H 13.5 H VBG Potassium 4.9 5.5 H Hgb O2 Saturation 94.3 L Sodium 157.0 H 156.0 H Chloride 118.0 H 119.0 H Glucose 245 H 229 H Lactate 2.3 H 2.2 H FiO2 21.0 21.0 80.0 Crit Value Called To Siri segal rn Crit Value Called By Atc Yy Blood Gas Notified Time [id number] Potassium Carbon Dioxide Anion Gap BUN Creatinine Est GFR ( Amer) Est GFR (Non-Af Amer) Random Glucose Calcium Total Bilirubin AST ALT Alkaline Phosphatase Total Protein Albumin Globulin Albumin/Globulin Ratio Venous Blood Potassium 4.9 5.5 H 05/15/18 05/15/18 05:40 06:30 WBC 16.3 H RBC 2.89 L Hgb 8.2 L Hct 29.5 L MCV 102.1 MCH 28.4 MCHC 27.8 L RDW 20.2 H Plt Count 102 L MPV 12.3 H Corrected WBC (Man) 15.5 H Neutrophils % (Manual) 96 H Lymphocytes % (Manual) 1 L Monocytes % (Manual) 3 Nucleated RBC % 5 Platelet Evaluation Low pCO2 pO2 HCO3 ABG pH ABG Total CO2 ABG O2 Saturation ABG O2 Content ABG Base Excess ABG Hemoglobin ABG Carboxyhemoglobin POC ABG HHb (Measured) ABG Methemoglobin ABG O2 Capacity VBG pH VBG pCO2 VBG HCO3 VBG Total CO2 VBG O2 Sat (Calc) VBG Base Excess VBG Potassium Hgb O2 Saturation Sodium 152 H Chloride 113 H Glucose Lactate FiO2 Crit Value Called To Crit Value Called By Blood Gas Notified Time Potassium 5.6 H* Carbon Dioxide 38 H Anion Gap 7 L BUN 62 H Creatinine 0.8 Est GFR ( Amer) > 60 Est GFR (Non-Af Amer) > 60 Random Glucose 286 H Calcium 8.3 L Total Bilirubin 0.8 AST 124 H D ALT 367 H Alkaline Phosphatase 220 H Total Protein 5.5 L Albumin 3.0 Globulin 2.5 Albumin/Globulin Ratio 1.2 Venous Blood Potassium Radiology Impressions: Radiology Impressions Chest X-Ray 05/15/18 05:00 IMPRESSION: Diffuse interstitial infiltrate. Focal opacity mid right lung. Possible pneumonia. Follow-up advised. Lines and tubes unchanged. Critical Care Progress Note - Nutrition Nutrition: Nutrition Category Date Time Status NPO Diet [DIET] Diets 05/06/18 Breakfast Ordered Attending/Attestation - Attestation I have personally seen and examined this patient.: Yes I have fully participated in the care of the patient.: Yes I have reviewed all pertinent clinical information: Yes Notes (Text): 05/15/18 17:[address] gtz note
--- NOTE | 2018-05-15 10:16 | CP.PCM.PN ---
Subjective - Date & Time of Evaluation Date of Evaluation: 05/15/18 Time of Evaluation: 09:55 - Subjective Subjective: Patient continues to be on the ventilator, grimaces to pain, no fevers this morning. Objective - Vital Signs/Intake and Output Vital Signs (last 24 hours): Temp Pulse Resp BP Pulse Ox 100.3 F H 65 24 106/44 L 94 L 05/14/18 09:29 05/14/18 14:00 05/14/18 08:00 05/14/18 13:29 05/14/18 08:00 Intake and Output: 05/14/18 05/14/18 06:59 18:59 Intake Total 2533 203 Output Total 700 Balance 1833 203 - Medications Medications: Current Medications Acetaminophen (Tylenol 650 Mg Supp) 650 mg RC Q6H PRN PRN Reason: Fever >100.4 F Last Admin: 05/10/18 20:55 Dose: 650 mg Acetaminophen (Tylenol 650mg/20.3ml Solution Ud) 650 mg NG Q6H PRN PRN Reason: FEVER > 100.4 Last Admin: 05/14/18 09:29 Dose: 650 mg Albumin Human (Albumin Human 25% (12.5 Gm/50 Ml)) 12.5 gm IV Q6H [facility] Aspirin (Aspirin Chewable) 81 mg PO DAILY [facility] Last Admin: 05/14/18 09:30 Dose: 81 mg Budesonide (Pulmicort Respules) 0.5 mg IH [id number] [facility] Last Admin: 05/14/18 07:24 Dose: 0.5 mg Dextrose (Dextrose 50% Inj) 0 ml IV STAT PRN; Protocol PRN Reason: Hypoglycemia Protocol Diltiazem HCl (Cardizem Cd) 120 mg PO DAILY [facility] Last Admin: 05/07/18 11:16 Dose: Not Given Diltiazem HCl (Cardizem) 30 mg NG QID [facility] Last Admin: 05/14/18 13:29 Dose: 30 mg Enoxaparin Sodium (Lovenox) 60 mg SC Q12H [facility]; Protocol Last Admin: 05/14/18 09:31 Dose: 60 mg Hydromorphone HCl (Dilaudid) 0.5 mg IVP Q4H PRN PRN Reason: Pain, severe (8-10) Last Admin: 05/13/18 12:46 Dose: 0.5 mg Meropenem (Merrem Iv 1 Gm Premix) 1 gm in 50 mls @ 100 mls/hr IVPB Q8 [facility]; Protocol Last Admin: 05/14/18 13:30 Dose: 100 mls/hr Vancomycin HCl (Vancomycin 1gm) 1 gm in 250 mls @ 167 mls/hr IVPB Q12H [facility]; Pr otocol Last Admin: 05/14/18 03:38 Dose: 167 mls/hr Dexmedetomidine HCl (Precedex 400mcg/100ml) 400 mcg in 100 mls @ 3.357 mls/hr IV .Q24H PRN; Protocol PRN Reason: Sedation Last Admin: 05/14/18 09:59 Dose: 0.8 mcg/kg/hr, 13.426 mls/hr Dextrose (Dextrose 5% In Water 1000 Ml) 1,000 mls @ 0 mls/hr IV .Q0M PRN; Protocol PRN Reason: Hypoglycemia Protocol Micafungin Sodium 100 mg/ (Sodium Chloride) 100 mls @ 100 mls/hr IV DAILY [facility]; Protocol Stop: 05/17/18 13:16 Last Admin: 05/14/18 09:35 Dose: 100 mls/hr diltiaZEM IVPB 100mg in NS (Cardizem 100mg In Ns) 100 mls @ 10 mls/hr IV .Q10H PRN; Protocol PRN Reason: TITRATE PER MD ORDER Last Titration: 05/14/18 12:00 Dose: 10 mg/hr, 10 mls/hr NOREPINEPHRINE BIT/0.9 % NACL (Levophed 4 Mg/ 250 Ml Ns Premixed) 4 mg in 250 mls @ 15 mls/hr IV .[id number] PRN; Protocol PRN Reason: TITRATE PER MD ORDER Last Titration: 05/13/18 12:00 Dose: 0 mcg/min, 0 mls/hr Insulin Human Lispro (Humalog High) 0 units SC ACHS [facility]; Protocol Last Admin: 05/14/18 11:04 Dose: 10 u Levalbuterol HCl (Xopenex) 0.63 mg IH [id number] PRN PRN Reason: Shortness of Breath Last Admin: 05/08/18 03:00 Dose: 0.63 mg Levalbuterol HCl (Xopenex) 0.63 mg IH TIDRESP [facility] Last Admin: 05/14/18 13:54 Dose: 0.63 mg Methylprednisolone (Solu-Medrol) 60 mg IVP Q6H [facility] Last Admin: 05/14/18 09:30 Dose: 60 mg Pantoprazole Sodium (Protonix Ec Tab) 40 mg PO 0600 [facility] Last Admin: 05/08/18 05:00 Dose: 40 mg Pantoprazole Sodium (Protonix Inj) 40 mg IVP DAILY [facility] Last Admin: 05/14/18 10:54 Dose: 40 mg Sotalol HCl (Betapace) 40 mg PO BID [facility] Last Admin: 05/11/18 09:16 Dose: Not Given Verapamil HCl (Calan Tab) 40 mg PO TID [facility] Last Admin: 05/11/18 09:16 Dose: Not Given Verapamil HCl (Verapamil Inj) 2.5 mg IVP Q6 PRN PRN Reason: FOR HR GREATER THAN 130 Last Admin: 05/13/18 05:11 Dose: 2.5 mg - Labs Labs: 05/14/18 06:30 05/14/18 06:30 PT 25.7 SECONDS (9.4-12.5) H 05/07/18 06:30 INR 2.20 05/07/18 06:30 APTT 25.5 Seconds (25.1-36.5) 05/07/18 06:30 - Constitutional Appears: Chronically Ill, Other (intubated, grimaces to painful stimuli.) - Head Exam Head Exam: NORMAL INSPECTION - ENT Exam Additional comments: ET tube in place - Respiratory Exam Respiratory Exam: Decreased Breath Sounds - Cardiovascular Exam Cardiovascular Exam: +S1, +S2 - GI/Abdominal Exam GI & Abdominal Exam: Soft. 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
--- NOTE | 2018-05-15 11:13 | CP.PCM.PN ---
<Anthony Chong - Last Filed: 05/15/18 11:08> Subjective - Date & Time of Evaluation Date of Evaluation: 05/15/18 Time of Evaluation: 11:08 - Subjective Subjective: PGY-2 heme/onc progress note for Dr Bullard No acute events noted overnight. Patient is on vent and sedated responsive only to deep painful stimuli, obtaining ROS is not possible. Objective - Vital Signs/Intake and Output Vital Signs (last 24 hours): Temp Pulse Resp BP Pulse Ox 99.1 F 110 H 26 H 138/77 96 05/15/18 04:00 05/15/18 10:00 05/15/18 08:01 05/15/18 10:00 05/15/18 08:01 Intake and Output: 05/15/18 05/15/18 06:59 18:59 Intake Total 1986 0 Output Total 1300 Balance 686 0 - Medications Medications: Current Medications Acetaminophen (Tylenol 650 Mg Supp) 650 mg RC Q6H PRN PRN Reason: Fever >100.4 F Last Admin: 05/10/18 20:55 Dose: 650 mg Acetaminophen (Tylenol 650mg/20.3ml Solution Ud) 650 mg NG Q6H PRN PRN Reason: FEVER > 100.4 Last Admin: 05/14/18 09:29 Dose: 650 mg Albumin Human (Albumin Human 25% (12.5 Gm/50 Ml)) 12.5 gm IV Q6H [facility] Last Admin: 05/15/18 09:00 Dose: 12.5 gm Aspirin (Aspirin Chewable) 81 mg PO DAILY [facility] Last Admin: 05/15/18 09:40 Dose: 81 mg Budesonide (Pulmicort Respules) 0.5 mg IH [id number] [facility] Last Admin: 05/15/18 07:57 Dose: 0.5 mg Dextrose (Dextrose 50% Inj) 0 ml IV STAT PRN; Protocol PRN Reason: Hypoglycemia Protocol Diltiazem HCl (Cardizem Cd) 120 mg PO DAILY [facility] Last Admin: 05/07/18 11:16 Dose: Not Given Diltiazem HCl (Cardizem) 60 mg PO TID [facility] Last Admin: 05/15/18 10:00 Dose: Not Given Hydromorphone HCl (Dilaudid) 0.5 mg IVP Q4H PRN PRN Reason: Pain, severe (8-10) Last Admin: 05/15/18 05:23 Dose: 0.5 mg Meropenem (Merrem Iv 1 Gm Premix) 1 gm in 50 mls @ 100 mls/hr IVPB Q8 [facility]; Protocol Last Admin: 05/15/18 06:06 Dose: 100 mls/hr Vancomycin HCl (Vancomycin 1gm) 1 gm in 250 mls @ 167 mls/hr IVPB Q12H [facility]; Protocol Last Admin: 05/15/18 02:35 Dose: 167 mls/hr Dexmedetomidine HCl (Precedex 400mcg/100ml) 400 mcg in 100 mls @ 3.357 mls/hr IV .Q24H PRN; Protocol PRN Reason: Sedation Last Admin: 05/15/18 01:43 Dose: 0.7 mcg/kg/hr, 11.748 mls/hr Dextrose (Dextrose 5% In Water 1000 Ml) 1,000 mls @ 0 mls/hr IV .Q0M PRN; Protocol PRN Reason: Hypoglycemia Protocol Micafungin Sodium 100 mg/ (Sodium Chloride) 100 mls @ 100 mls/hr IV DAILY [facility]; Protocol Stop: 05/17/18 13:16 Last Admin: 05/15/18 09:40 Dose: 100 mls/hr diltiaZEM IVPB 100mg in NS (Cardizem 100mg In Ns) 100 mls @ 10 mls/hr IV .Q10H PRN; Protocol PRN Reason: TITRATE PER MD ORDER Last Titration: 05/15/18 08:00 Dose: 5 mg/hr, 5 mls/hr NOREPINEPHRINE BIT/0.9 % NACL (Levophed 4 Mg/ 250 Ml Ns Premixed) 4 mg in 250 mls @ 15 mls/hr IV .[id number] PRN; Protocol PRN Reason: TITRATE PER MD ORDER Last Titration: 05/13/18 12:00 Dose: 0 mcg/min, 0 mls/hr Fentanyl Citrate (Fentanyl Citrate/Sodium Chloride 1 Mg/100 Ml) 1,000 mcg in 100 mls @ 2 mls/hr IV .Q24H PRN; Protocol PRN Reason: TITRATE PER MD ORDER Last Admin: 05/15/18 09:49 Dose: 20 mcg/hr, 2 mls/hr Insulin Human Lispro (Humalog High) 0 units SC ACHS [facility]; Protocol Last Admin: 05/15/18 08:44 Dose: 10 u Levalbuterol HCl (Xopenex) 0.63 mg IH [id number] PRN PRN Reason: Shortness of Breath Last Admin: 05/15/18 02:05 Dose: 0.63 mg Levalbuterol HCl (Xopenex) 0.63 mg IH TIDRESP [facility] Last Admin: 05/15/18 07:57 Dose: 0.63 mg Methylprednisolone (Solu-Medrol) 40 mg IVP Q12 [facility] Pantoprazole Sodium (Protonix Ec Tab) 40 mg PO 0600 [facility] Last Admin: 05/08/18 05:00 Dose: 40 mg Pantoprazole Sodium (Protonix Inj) 40 mg IVP DAILY [facility] Last Admin: 05/15/18 10:00 Dose: 40 mg Sotalol HCl (Betapace) 40 mg PO BID [facility] Last Admin: 05/11/18 09:16 Dose: Not Given Verapamil HCl (Calan Tab) 40 mg PO TID [facility] Last Admin: 05/11/18 09:16 Dose: Not Given Verapamil HCl (Verapamil Inj) 2.5 mg IVP Q6 PRN PRN Reason: FOR HR GREATER THAN 130 Last Admin: 05/15/18 04:01 Dose: 2.5 mg - Labs Labs: 05/15/18 05:40 05/15/18 06:30 PT 25.7 SECONDS (9.4-12.5) H 05/07/18 06:30 INR 2.20 05/07/18 06:30 APTT 25.5 Seconds (25.1-36.5) 05/07/18 06:30 - Additional Findings Additional findings: - Constitutional Appears: Cachectic, Chronically Ill - Head Exam Head Exam: ATRAUMATIC, NORMAL INSPECTION - Eye Exam Eye Exam: EOMI, Normal appearance, PERRL. absent: Scleral icterus - ENT Exam ENT Exam: Mucous Membranes Moist - Respiratory Exam Respiratory Exam: Decreased Breath Sounds, NORMAL BREATHING PATTERN. absent: Clear to Ausculation Bilateral - Cardiovascular Exam Cardiovascular Exam: Tachycardia, REGULAR RHYTHM, +S1, +S2. absent: Murmur - GI/Abdominal Exam GI & Abdominal Exam: Soft, Normal Bowel Sounds. 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 Patient was diagnosed with sepsis 2/2 to HCAP. On 05/05, patient became hypoxia and was in respiratory distress. Patient was intubated and sedated with propofol and versed. #History of small cell lung cancer stage 4 on radiation and chemotherapy -progression of disease from metastatic cancer vs aspiration pneumonia vs hospital-acquired pneumonic process in immuocompromised patient currently on systemic chemotherapy, completed six cycles of carboplatin and etoposide and then maintained on Tecentriq and also iridium, which is the bisphosphonate for metastatic disease in the bone -currently on Tecentriq * Tecentriq - 47% association with pneumonitis as complication of treatment * hoping for improvement on steroids - was on methyprednisolone 60mg ivp q6h now on 40mg ivp q12h -most recent PET CT scan ~3 weeks ago showed dramatic improvement in his disease -currently intubated and sedated - continue to maintain oxygen saturation and continue steroids - if condition does not improve in next 24 hours we will plan on supportive care alone -EEG - moderate to severe non-specific diffuse disturbance of cortical activity, no seizures, patient not in status epilepticus #SIRS, consider sepsis due to multifocal HCAP -CT of chest showed multifocal pneumonia. Patient completed 7 days of merrem and doxycycline on the floors. Now on vancomycin 1g q12h and merrem 1g q8h which has been stopped. He is currently not on any abx. ID Dr Urrutia has been consulted. -blood cx and flu negative #History of atrial fibrillation #NSTEMI -He released troponins, he also has AFib with RVR - he is on lovenox 60mg ivp q12h - his home eliquis 5mg bid is on hold, he is also receiving aspirin 300mg rectally, he is on sotalol 40mg po bid, his cardizem is currently being held. He is currently on amio drip. He is currently on verapmail 40mg po tid and verapil 2.5mg ivp q6h prn. He is on lasix 40mg iv bid. Cardio Dr Orozco is consulted. #COPD -Per pulm recommendation - continue pulmicort 0.5mg ih q12h and xopenex 0.63mg ih q6h prn and scheduled. Seen and discussed with Dr Bullard <Anu Bullard P - Last Filed: 05/18/18 21:51> Objective - Vital Signs/Intake and Output Vital Signs (last 24 hours): Temp Pulse Resp BP Pulse Ox 97.5 F L 65 21 95/45 L 100 05/18/18 14:00 05/18/18 18:00 05/16/18 07:03 05/18/18 13:59 05/18/18 14:00 Intake and Output: 05/18/18 05/19/18 18:59 06:59 Intake Total 2824 Balance 2824 - Medications Medications: Current Medications Acetaminophen (Tylenol 650 Mg Supp) 650 mg RC Q6H PRN PRN Reason: Fever >100.4 F Last Admin: 05/10/18 20:55 Dose: 650 mg Acetaminophen (Tylenol 650mg/20.3ml Solution Ud) 650 mg NG Q6H PRN PRN Reason: FEVER > 100.4 Last Admin: 05/14/18 09:29 Dose: 650 mg Aspirin (Aspirin Chewable) 81 mg PO DAILY [facility] Last Admin: 05/18/18 10:38 Dose: 81 mg Budesonide (Pulmicort Respules) 0.5 mg IH [id number] [facility] Last Admin: 05/18/18 19:43 Dose: 0.5 mg Dextrose (Dextrose 50% Inj) 0 ml IV STAT PRN; Protocol PRN Reason: Hypoglycemia Protocol Dextrose (Dextrose 50% Inj) 0 ml IV STAT PRN; Protocol PRN Reason: Hypoglycemia Protocol Diltiazem HCl (Cardizem Cd) 120 mg PO DAILY [facility] Last Admin: 05/07/18 11:16 Dose: Not Given Hydromorphone HCl (Dilaudid) 0.5 mg IVP Q4H PRN PRN Reason: Pain, severe (8-10) Last Admin: 05/18/18 06:32 Dose: 0.5 mg Meropenem (Merrem Iv 1 Gm Premix) 1 gm in 50 mls @ 100 mls/hr IVPB Q8 [facility]; Protocol Last Admin: 05/18/18 14:38 Dose: 100 mls/hr Dexmedetomidine HCl (Precedex 400mcg/100ml) 400 mcg in 100 mls @ 3.357 mls/hr IV .Q24H PRN; Protocol PRN Reason: Sedation Last Titration: 05/17/18 22:54 Dose: 0 mcg/kg/hr, 0 mls/hr Dextrose (Dextrose 5% In Water 1000 Ml) 1,000 mls @ 0 mls/hr IV .Q0M PRN; Protocol PRN Reason: Hypoglycemia Protocol Fentanyl Citrate (Fentanyl Citrate/Sodium Chloride 1 Mg/100 Ml) 1,000 mcg in 100 mls @ 2 mls/hr IV .Q24H PRN; Protocol PRN Reason: TITRATE PER MD ORDER Last Admin: 05/18/18 11:26 Dose: 70 mcg/hr, 7 mls/hr Dextrose (Dextrose 5% In Water 1000 Ml) 1,000 mls @ 0 mls/hr IV .Q0M PRN; Protocol PRN Reason: Hypoglycemia Protocol Insulin Human Lispro (Humalog High) 0 units SC Q6 [facility]; Protocol Last Admin: 05/18/18 16:45 Dose: 7 unit Levalbuterol HCl (Xopenex) 0.63 mg IH [id number] PRN PRN Reason: Shortness of Breath Last Admin: 05/15/18 02:05 Dose: 0.63 mg Levalbuterol HCl (Xopenex) 0.63 mg IH TIDRESP [facility] Last Admin: 05/18/18 19:43 Dose: 0.63 mg Methylprednisolone (Solu-Medrol) 20 mg IVP Q12 [facility] Pantoprazole Sodium (Protonix Inj) 40 mg IVP DAILY [facility] Last Admin: 05/18/18 10:38 Dose: 40 mg Propranolol HCl (Inderal) 20 mg PO Q6H [facility] Last Admin: 05/18/18 16:44 Dose: 20 mg Sotalol HCl (Betapace) 40 mg PO BID [facility] Last Admin: 05/11/18 09:16 Dose: Not Given Verapamil HCl (Calan Tab) 40 mg PO TID [facility] Last Admin: 05/11/18 09:16 Dose: Not Given Verapamil HCl (Verapamil Inj) 2.5 mg IVP Q6 PRN PRN Reason: FOR HR GREATER THAN 130 Last Admin: 05/17/18 13:34 Dose: 2.5 mg - Labs Labs: 05/18/18 05:40 05/18/18 05:40 PT 14.0 SECONDS (9.4-12.5) H 05/15/18 20:43 INR 1.26 05/15/18 20:43 APTT 30.5 Seconds (26.9-38.3) 05/15/18 20:43 Attending/Attestation - Attestation I have personally seen and examined this patient.: Yes I have fully participated in the care of the patient.: Yes I have reviewed all pertinent clinical information, including history, physical exam and plan: Yes
[2018-05-15] MEDS ORDERED: Insulin Regular 1 UNITS/0.01 ML ML SC ONE (11:41)
--- NOTE | 2018-05-15 12:23 | PN ---
DATE: 05/15/2018 PULMONARY CRITICAL CARE PROGRESS NOTE REFERRING PHYSICIAN: Erasmo Briggs MD SUBJECTIVE: Patient remains on ventilator, intubated and sedated. No hemoptysis, hematemesis or hematuria recorded. OBJECTIVE GENERAL: Intubated and sedated. VITAL SIGNS: Blood pressure 138/77, pulse 102, oxygen saturation 96% and temperature 96.6. HEENT: Moist mucous membranes. NECK: Supple. No JVD. RESPIRATORY: Rhonchi bilaterally, mild wheeze. CARDIOVASCULAR: Tachycardiac and irregular. ABDOMEN: Soft. No distention. EXTREMITIES: Bilateral upper and lower extremity edema. NEUROLOGIC: Intubated and sedated. MEDICATIONS: Reviewed. Tylenol 650 mg rectal every 6 hours p.r.n. for fever greater than 100.4, Tylenol 650 mg nasogastric tube every 6 hours p.r.n. fever greater than 100.4, albumin 25% at 12.5 g IV every 6 hours, aspirin 81 mg daily, Pulmicort 0.5 mg every 12 hours, Precedex 400 mcg every 24 hours p.r.n., Cardizem 120 mg daily, Cardizem 60 mg 3 times a day, Cardizem 100 mg every 10 hours p.r.n., fentanyl citrate 1000 mcg 100 mL at 2 mL per hour every 24 hours p.r.n., Dilaudid 0.5 mg IV push every 4 hours p.r.n., Humalog sliding scale a.c. and at bedtime, Xopenex 0.63 inhalation every 6 hours p.r.n., Xopenex 0.63 inhalation 3 times a day, meropenem 1 g every 8 hours, Solu-Medrol 60 mg every 6 hours, micafungin 100 mg daily, Levophed 4 g in 250 mL at mL per hour p.r.n., pantoprazole 40 mg daily, sotalol 40 mg twice a day, vancomycin 1 g every 12 hours, verapamil 2.5 mg IV push every 6 hours p.r.n. and verapamil 40 mg 3 times a day. LABORATORY DATA: Reviewed. WBC 16.6, RBC 2.89, hemoglobin 8.2, hematocrit 29.5, and platelets 102. PCO2 of 56, O2 of 76, HCO3 of 39.8, ABG pH 7.46 and FIO2 80. Sodium 132, potassium 5.6, chloride 113, carbon dioxide 38, anion gap 7, BUN 62, creatinine 0.8, GFR is greater than 60, random glucose 286, calcium 8.3, total bilirubin 0.8, AST 124, ALT 367, alkaline phosphatase 220, total protein 5.5, albumin 3.0, globulin 2.5, and albumin-globulin ratio 1.2. Blood cultures preliminary, no growth after 48 hours. Chest x-ray shows diffuse interstitial infiltrate, focal opacity mid right lung possible pneumonia unchanged. IMPRESSION AND PLAN: Multiorgan dysfunction; acute lung injury, unknown cause, could be healthcare associated pneumonia, could be chemotherapy-induced pneumonitis, unresectable small cell lung cancer, chronic obstructive lung disease, paroxysmal atrial fibrillation, respiratory failure on ventilator; cardiac infarction, failure to thrive, sepsis, renal failure. Continue antibiotic therapy, covering broad-spectrum antibiotics. We will decrease Solu-Medrol to 40 mg every 12 hours. Continue vent settings. Continue inhaled bronchodilators. Patient has poor prognosis. Continue Oncology and Cardiology followup. We will repeat chest x-ray, labs, ABGs in the morning. Critical care time spent more than 35 minutes. The patient was seen and examined with Dr. Yi. Discussed assessment and plan as described above. Thank you for this consult. We will follow with you. Juan Carlos Paul APN Aura Yi MD
[2018-05-15] MEDS ORDERED: Insulin Regular 1 UNITS/0.01 ML ML IV ONE (12:59)
--- NOTE | 2018-05-15 13:41 | CP.PCM.PN ---
Subjective - Date & Time of Evaluation Date of Evaluation: 05/15/18 Time of Evaluation: 12:00 - Subjective Subjective: Sedated, intubated. No acute changes. Objective - Vital Signs/Intake and Output Vital Signs (last 24 hours): Temp Pulse Resp BP Pulse Ox 97 F L 90 18 129/70 98 05/15/18 12:00 05/15/18 13:24 05/15/18 12:00 05/15/18 13:24 05/15/18 12:00 Intake and Output: 05/15/18 05/15/18 06:59 18:59 Intake Total 1986 111 Output Total 1300 Balance 686 111 - Medications Medications: Current Medications Acetaminophen (Tylenol 650 Mg Supp) 650 mg RC Q6H PRN PRN Reason: Fever >100.4 F Last Admin: 05/10/18 20:55 Dose: 650 mg Acetaminophen (Tylenol 650mg/20.3ml Solution Ud) 650 mg NG Q6H PRN PRN Reason: FEVER > 100.4 Last Admin: 05/14/18 09:29 Dose: 650 mg Albumin Human (Albumin Human 25% (12.5 Gm/50 Ml)) 12.5 gm IV Q6H [facility] Last Admin: 05/15/18 09:00 Dose: 12.5 gm Aspirin (Aspirin Chewable) 81 mg PO DAILY [facility] Last Admin: 05/15/18 09:40 Dose: 81 mg Budesonide (Pulmicort Respules) 0.5 mg IH [id number] [facility] Last Admin: 05/15/18 07:57 Dose: 0.5 mg Dextrose (Dextrose 50% Inj) 0 ml IV STAT PRN; Protocol PRN Reason: Hypoglycemia Protocol Diltiazem HCl (Cardizem Cd) 120 mg PO DAILY [facility] Last Admin: 05/07/18 11:16 Dose: Not Given Diltiazem HCl (Cardizem) 60 mg PO TID [facility] Last Admin: 05/15/18 13:24 Dose: 60 mg Hydromorphone HCl (Dilaudid) 0.5 mg IVP Q4H PRN PRN Reason: Pain, severe (8-10) Last Admin: 05/15/18 05:23 Dose: 0.5 mg Meropenem (Merrem Iv 1 Gm Premix) 1 gm in 50 mls @ 100 mls/hr IVPB Q8 [facility]; Protocol Last Admin: 05/15/18 06:06 Dose: 100 mls/hr Vancomycin HCl (Vancomycin 1gm) 1 gm in 250 mls @ 167 mls/hr IVPB Q12H [facility]; Protocol Last Admin: 05/15/18 02:35 Dose: 167 mls/hr Dexmedetomidine HCl (Precedex 400mcg/100ml) 400 mcg in 100 mls @ 3.357 mls/hr IV .Q24H PRN; Protocol PRN Reason: Sedation Last Admin: 05/15/18 12:49 Dose: 0.7 mcg/kg/hr, 11.748 mls/hr Dextrose (Dextrose 5% In Water 1000 Ml) 1,000 mls @ 0 mls/hr IV .Q0M PRN; Protocol PRN Reason: Hypoglycemia Protocol Micafungin Sodium 100 mg/ (Sodium Chloride) 100 mls @ 100 mls/hr IV DAILY [facility]; Protocol Stop: 05/17/18 13:16 Last Admin: 05/15/18 09:40 Dose: 100 mls/hr diltiaZEM IVPB 100mg in NS (Cardizem 100mg In Ns) 100 mls @ 10 mls/hr IV .Q10H PRN; Protocol PRN Reason: TITRATE PER MD ORDER Last Titration: 05/15/18 09:00 Dose: 0 mg/hr, 0 mls/hr NOREPINEPHRINE BIT/0.9 % NACL (Levophed 4 Mg/ 250 Ml Ns Premixed) 4 mg in 250 mls @ 15 mls/hr IV .[id number] PRN; Protocol PRN Reason: TITRATE PER MD ORDER Last Titration: 05/13/18 12:00 Dose: 0 mcg/min, 0 mls/hr Fentanyl Citrate (Fentanyl Citrate/Sodium Chloride 1 Mg/100 Ml) 1,000 mcg in 100 mls @ 2 mls/hr IV .Q24H PRN; Protocol PRN Reason: TITRATE PER MD ORDER Last Titration: 05/15/18 12:00 Dose: 60 mcg/hr, 6 mls/hr Insulin Human Lispro (Humalog High) 0 units SC ACHS [facility]; Protocol Last Admin: 05/15/18 12:30 Dose: 10 u Levalbuterol HCl (Xopenex) 0.63 mg IH [id number] PRN PRN Reason: Shortness of Breath Last Admin: 05/15/18 02:05 Dose: 0.63 mg Levalbuterol HCl (Xopenex) 0.63 mg IH TIDRESP [facility] Last Admin: 05/15/18 13:18 Dose: 0.63 mg Methylprednisolone (Solu-Medrol) 40 mg IVP Q12 [facility] Pantoprazole Sodium (Protonix Ec Tab) 40 mg PO 0600 [facility] Last Admin: 05/08/18 05:00 Dose: 40 mg Pantoprazole Sodium (Protonix Inj) 40 mg IVP DAILY [facility] Last Admin: 05/15/18 10:00 Dose: 40 mg Sotalol HCl (Betapace) 40 mg PO BID [facility] Last Admin: 05/11/18 09:16 Dose: Not Given Verapamil HCl (Calan Tab) 40 mg PO TID [facility] Last Admin: 05/11/18 09:16 Dose: Not Given Verapamil HCl (Verapamil Inj) 2.5 mg IVP Q6 PRN PRN Reason: FOR HR GREATER THAN 130 Last Admin: 05/15/18 04:01 Dose: 2.5 mg - Labs Labs: 05/15/18 05:40 05/15/18 06:30 PT 25.7 SECONDS (9.4-12.5) H 05/07/18 06:30 INR 2.20 05/07/18 06:30 APTT 25.5 Seconds (25.1-36.5) 05/07/18 06:30 - Constitutional Appears: Chronically Ill - Eye Exam Eye Exam: Normal appearance - ENT Exam ENT Exam: Mucous Membranes Moist - Respiratory Exam Respiratory Exam: Decreased Breath Sounds, Rhonchi - Cardiovascular Exam Cardiovascular Exam: Irregular Rhythm, +S1, +S2 - GI/Abdominal Exam GI & Abdominal Exam: Soft, Normal Bowel Sounds - Extremities Exam Extremities Exam: Pedal Edema - Neurological Exam Neurological Exam: Altered - Skin Skin Exam: Dry Assessment and Plan - Assessment and Plan (Free Text) Assessment: 77 year old male with history of small lung cancer who is admitted with sepsis, respiratory failure, multi organ dysfunction, PAT, NSTEMI. I spoke with patient's son,Raad via phone. I explained that I would like to meet with him to discuss goals of care. Raad and I spoke last week about fci care vs terminal extubation and comfort care. During that meeting, Raad indicated that family wanted to give their father some to to see if he would rebound from current medical situation. Raad understands that he will need to establish future goals of care for his father so that the medical team can plan for PEG and trach if this is the direction he wishes to proceed. Raad indicated that he is willing to meet with myself and licensed master social worker tomorrow. Time spent in discussion with son regarding goals of care 10 minutes Plan: Goals of care and advance care planning Cardiology following: continue Verapmil, Cardizem,Norepinephrine,ASA. Pulmonary: Intubated, maintain O2 sat > 95%, sedated,continue Xopenex,Solumedrol Monitor glucose. continue insulin as ordered.
--- NOTE | 2018-05-15 14:57 | PN ---
DATE: 05/15/2018 REASON FOR CONSULTATION AND FOLLOWUP: Status post respiratory failure, [id number] myocardial infarction, lung CA with metastases, atrial fibrillation, now rate is controlled, goes back and forth with AFib and sinus and rapid rate. SUBJECTIVE: The patient remained sedated on vent, on IV Cardizem. OBJECTIVE: GENERAL: Not in apparent distress, still remains on vent. Now currently again on Cardizem drip 5 mg an hour, yesterday was off Cardizem and the patient went into rapid rate. VITAL SIGNS: Temperature afebrile, heart rate 102, and blood pressure 138/77. HEENT: PERRLA. Extraocular muscles intact. NECK: Supple. No carotid bruit or thyromegaly. CHEST: Clear to auscultation. HEART: S1 and S2 regular. ABDOMEN: Soft. EXTREMITIES: Clubbing and cyanosis is negative. LABORATORY DATA: Blood workup as follows; WBC 16.1, hemoglobin 8.2, hematocrit 29.5 and platelet count 102. Chemistry shows sodium 150, potassium 5.1, chloride 113, carbon dioxide 38, anion gap of 7, BUN 61 and creatinine 0.8. IMPRESSION: A 77-year-old male with a past medical history significant for lung cancer, history of atrial fibrillation paroxysmal admitted for failure to thrive, respiratory distress, intubated, moved to ICU, since then patient is vent dependent, back and forth atrial fibrillation sinus and goes sometimes into rapid rate, was off Cardizem, now put back again. RECOMMENDATIONS: We will start Cardizem 60 mg 3 times a day and wean off the Cardizem drip. We will give one dose . Also, the patient has hyperkalemia. We will Kayexalate. Continue NG feeding, continue free water through the NG tube, 4 doses of IV albumin because the patient was severe protein-calorie malnutrition as well as hypotensive, so we will give IV albumin, so we can give extra diuresis if needed. Continue Lovenox for AFib. Overall, patient's condition is critical. 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 We will follow with you. We will Kayexalate 30 and free water. Repeat the lab in the morning. Aura Orozco MD [facility] # [id number]
[2018-05-15 18:16] LABS: BLOOD UREA NITROGEN 59 mg/dL (7-21); CALCIUM 8.3 mg/dL (8.4-10.5); GFR NON-AFRICAN AMERICAN > 60
--- NOTE | 2018-05-15 20:16 | PN ---
DATE: 05/15/2018 SUBJECTIVE: The patient was seen and examined at bedside. He is not responsive to painful or touch stimuli. He is on Precedex 0.6 mcg/kg per hour. He is on fentanyl 80 mcg per hour. PHYSICAL EXAMINATION VITAL SIGNS: He is on PRVC 400/18/12/80%. On that setting, his heart rate fluctuates between 90 and 140, oxygen saturation 95%, temperature 98.2, end-tidal CO2 monitor shows 47. ENT: Head and neck atraumatic. The patient is intubated. LUNGS: Few rhonchi bilaterally. HEART: Irregular rate and rhythm. S1 and S2, distant. ABDOMEN: Soft, nontender, nondistended. MUSCULOSKELETAL: 1+ bilateral pedal and ankle edema. NEURO: The patient is not seen moving all extremities spontaneously. Of note, EEG was done several days ago, showed no seizures. CAT scan of the head was done also several days ago, showed no acute intracranial pathology. SKIN: Moist. PSYCH: The patient is not responsive to painful or touch stimuli. LABORATORY DATA: WBC 16.3, hemoglobin 8.2, platelet count 102. Sodium 152, potassium 5.6, chloride 113, carbon dioxide 38, BUN 62, creatinine 0.8, glucose 286, AST 124, ALT 367, total bilirubin 0.8. ABG today is 7.46/56/76. Chest x-ray today showed bilateral fluffy infiltrates, right more than left, intermingled with areas of emphysema. MEDICATIONS: Tylenol p.r.n., albumin every 6 hours 25%, aspirin, Pulmicort, Cardizem drip, Precedex, fentanyl, Dilaudid p.r.n., regular insulin sliding scale high protocol, Xopenex p.r.n., meropenem, Solu-Medrol 40 mg IV every 12 hours, micafungin, Protonix, vancomycin, verapamil. ASSESSMENT AND PLAN: This is a 77-year-old gentleman with ventilator-dependent respiratory failure/hypoxemic respiratory failure in the setting of stage IV small cell lung cancer (even though showed some improvement on the PET scan), complicated by severe systemic inflammatory response syndrome of infectious versus noninfectious etiology with multiorgan system failure including encephalopathy, transaminitis, respiratory failure and septic cardiomyopathy. 1. NEURO: The patient is on Precedex and fentanyl. He appears to be comfortable, however, not arousable. 2. PULMONARY: We will continue with conservative fluid and oxygen management. Protective lung ventilation strategy including low tidal volume ventilation with tidal volume 4-8 mL per predicted body weight and plateau pressure less than 30 cm of water. Head of bed elevated more than 35 degrees, oral hygiene. Daily sedation vacation and weaning trials when oxygen requirement falls down below 60%. 3. CARDIOVASCULAR: The patient has [id number] atrial fibrillation with rapid ventricular response. He was tried on calcium channel blockers and beta-blockers, even amiodarone which was held due to hepatopathy and concern for acute pulmonary toxicity. Digoxin was also tried. Precedex was supposed to help his heart rate as well; however, the patient is in and out of atrial fibrillation with rapid ventricular response. Cardiology followup appreciated. 4. GASTROINTESTINAL: The patient tolerates enteral nutrition well. He had a bowel movement. His abdominal exam is benign. We will continue with gastrointestinal prophylaxis. 5. ENDOCRINE: We will continue with blood glucose maintenance between 140-180 range according to NICE-SUGAR trial. 6. RENAL: Renal function appears to be maintained. Creatinine 0.8. The patient appears to make more than 0.5 mL/kg per hour urine. 7. INFECTIOUS DISEASE: The patient had a low-grade fever yesterday morning, however, was afebrile since then. Infectious Disease service is on board. The patient is on meropenem, micafungin and vancomycin. We will continue to maintain euvolemia, glycemia, normothermia and oxygen saturation more than 90%. We will continue DVT and GI prophylaxis. I spoke with Dr. Yi and Dr. Bullard about their take on prognosis. At the present time, I do not foresee the patient be winnable within near future. If family wants to proceed with aggressive supportive measures, we will start looking for long-term acute care facility. However, provided the patient's advanced cardiopulmonary comorbidities in the setting of stage IV small lung CA, discussion about DNR/DNI status appears to be appropriate. That was concurred by Dr. Bullard and Dr. Yi in my conversation with them. ccm time 40 min Shay Gtz MD MTDD
[2018-05-15 20:47] LABS: HEMOGLOBIN 7.7 g/dL (14.0-18.0); MEAN CELL VOLUME 103.8 fl (80.0-105.0); MEAN CORPUSCULAR HEMOGLOBIN 29.1 pg (25.0-35.0); MEAN PLATELET VOLUME 11.7 fl (7.0-11.0); RBC 2.65 10^6/uL (3.5-6.1); RED CELL DISTRIBUTION WIDTH 20.2 % (11.5-14.5); WHITE BLOOD COUNT 20.5 10^3/uL (4.5-11.0)
[2018-05-15 20:55] LABS: BLOOD UREA NITROGEN 62 mg/dL (7-21); CALCIUM 8.4 mg/dL (8.4-10.5); GFR NON-AFRICAN AMERICAN > 60
[2018-05-15 20:56] LABS: INR 1.26; PARTIAL THROMBOPLASTIN TIME 30.5 Seconds (26.9-38.3)
[2018-05-16] MEDS ORDERED: Propofol 10 mg/ml 0 MG/0 ML VIAL ONE (01:54)
[2018-05-16] MEDS: Vancomycin 1gm in NS 250ml 1 GM/250 ML BAG IVPB SCH ×2 (03:06→15:49)
[2018-05-16] MEDS: Meropenem IV 1 gm in NS 1 GM/50 ML BAG IVPB SCH ×3 (05:17→21:53)
[2018-05-16] MEDS: Dexmedetomidine 400mcg/100mL 400 MCG/100 ML BOTTLE IV PRN ×2 (05:22→15:52)
[2018-05-16] MEDS: Budesonide 0.5 mg/2 ml Inhal Susp UD IH SCH ×2 (07:01→21:08)
[2018-05-16] MEDS: Levalbuterol 0.63 MG/3 ML Inhal Soln UD IH SCH ×3 (07:01→21:09)
[2018-05-16 07:08] LABS: HEMOGLOBIN 7.3 g/dL (14.0-18.0); MEAN CELL VOLUME 103.1 fl (80.0-105.0); MEAN CORPUSCULAR HEMOGLOBIN 28.7 pg (25.0-35.0); MEAN CORPUSCULAR HGB CONC 27.9 g/dl (31.0-37.0); MEAN PLATELET VOLUME 12.3 fl (7.0-11.0); PLATELET COUNT 99 10^3/uL (120.0-450.0); RBC 2.54 10^6/uL (3.5-6.1); RED CELL DISTRIBUTION WIDTH 20.3 % (11.5-14.5); WHITE BLOOD COUNT 16.6 10^3/uL (4.5-11.0)
[2018-05-16 08:06] LABS: ALB/GLOB RATIO 1.2 (1.1-1.8); ALBUMIN 2.7 g/dL (3.0-4.8); ALT/SGPT 201 U/L (7-56); AST/SGOT 37 U/L (17-59); CALCIUM 8.1 mg/dL (8.4-10.5)
[2018-05-16 08:09] LABS: BLOOD UREA NITROGEN 64 mg/dL (7-21); GFR NON-AFRICAN AMERICAN > 60
[2018-05-16 08:24] LABS: BAND 3 % (0-2); LYMPHOCYTE 1 % (22.0-35.0); MONOCYTE 3 % (1.0-6.0); NEUTROPHIL 93 % (50.0-70.0); NUCLEATED RED BLOOD CELL 3 %
[2018-05-16 08:27] LABS: ANISOCYTOSIS 1+; HYPOCHROMIA SLIGHT
[2018-05-16 08:28] LABS: LARGE PLATELETS PRESENT; PLATELET ESTIMATE LOW (NORMAL)
[2018-05-16] MEDS: Insulin Lispro (HUMAlog) HIGH Coverage SC SCH ×4 (09:06→22:11)
[2018-05-16 09:13] LABS: ARTERIAL BLOOD GAS PH 7.36 (7.35-7.45)
[2018-05-16 09:14] LABS: ARTERIAL BLOOD GAS HEMOGLOBIN 7.5 g/dL (11.7-17.4); ARTERIAL BLOOD GAS TCO2 42.9 mmol.L (22-28)
[2018-05-16 09:15] LABS: ARTERIAL BLOOD GAS O2 SAT 99.7 % (95-98)
[2018-05-16 09:16] LABS: ARTERIAL BLOOD GAS HCO3 40.7 mmol/L (21-28); ARTERIAL BLOOD GAS PCO2 72 mm/Hg (35-45)
[2018-05-16] MEDS: MethylPREDNISolone 40 mg Vial IVP SCH ×2 (09:47→21:53)
[2018-05-16] MEDS: Micafungin 100 MG in Sodium Chloride 0.9% 100 ML IV SCH (09:53)
--- NOTE | 2018-05-16 10:08 | RAD ---
Date of service: 05/16/2018 HISTORY: follow up infiltrate COMPARISON: Frontal chest radiograph 05/15/2018. FINDINGS: LUNGS: Endotracheal and nasogastric tubes are not significantly changed in position. Right MediPort unchanged as well. There is no significant interval change in diffuse interstitial infiltrates bilaterally with underlying alveolitis not completely excluded. Pattern may reflect mix interstitial/alveolar pneumonitis once again. PLEURA: No moderate or prominent pleural effusion evident. No pneumothorax bilaterally. CARDIOVASCULAR: Calcific atherosclerotic changes are seen related to the thoracic aorta. Stable cardiac size. No definite pulmonary vascular congestion. OSSEOUS STRUCTURES: No significant abnormalities. VISUALIZED UPPER ABDOMEN: Normal. OTHER FINDINGS: None. IMPRESSION: Stable mixed interstitial/alveolar infiltrates bilaterally without interval improvement appreciable. No significant interval change bilaterally.
--- NOTE | 2018-05-16 11:16 | RAD ---
Date of service: 05/15/2018 HISTORY: ETT placement confirmation COMPARISON: Portable chest 05/15/2018, 10:23 p.m.. FINDINGS: Endotracheal now advanced to terminate 3.7 cm above the inga in good apparent position. Nasogastric tube not significantly changed in position as well as right MediPort. LUNGS: Persistent mixed alveolar and interstitial infiltrates appreciated once again without significant oral change bilaterally. PLEURA: No pneumothorax bilaterally. Trace bilateral pleural effusions not excluded. CARDIOVASCULAR: Calcific atherosclerotic changes are seen related to the thoracic aorta. Normal cardiac size. No pulmonary vascular congestion. OSSEOUS STRUCTURES: No significant abnormalities. VISUALIZED UPPER ABDOMEN: Normal. OTHER FINDINGS: None. IMPRESSION: Stable bilateral mixed alveolar and interstitial infiltrates with trace bilateral pleural effusions difficult to completely exclude. Adequate adjustment of endotracheal tube.
--- NOTE | 2018-05-16 11:49 | CP.PCM.PN ---
<Anthony Chong - Last Filed: 05/16/18 11:46> Subjective - Date & Time of Evaluation Date of Evaluation: 05/16/18 Time of Evaluation: 11:46 - Subjective Subjective: PGY-2 heme/onc progress note for Dr Bullard No acute events noted overnight. Patient intubated and sedated. Pupils reactive +3, pulses palpable, + gag/cough. Flaccid no movement on extremities. ROS were not obtainable. Objective - Vital Signs/Intake and Output Vital Signs (last 24 hours): Temp Pulse Resp BP Pulse Ox 98.5 F 157 H 21 125/72 99 05/16/18 04:00 05/16/18 09:51 05/16/18 07:03 05/16/18 09:51 05/16/18 07:03 Intake and Output: 05/16/18 05/16/18 06:59 18:59 Intake Total 1818 Output Total 1050 Balance 768 - Medications Medications: Current Medications Acetaminophen (Tylenol 650 Mg Supp) 650 mg RC Q6H PRN PRN Reason: Fever >100.4 F Last Admin: 05/10/18 20:55 Dose: 650 mg Acetaminophen (Tylenol 650mg/20.3ml Solution Ud) 650 mg NG Q6H PRN PRN Reason: FEVER > 100.4 Last Admin: 05/14/18 09:29 Dose: 650 mg Aspirin (Aspirin Chewable) 81 mg PO DAILY [facility] Last Admin: 05/16/18 09:37 Dose: 81 mg Budesonide (Pulmicort Respules) 0.5 mg IH [id number] [facility] Last Admin: 05/16/18 07:01 Dose: 0.5 mg Dextrose (Dextrose 50% Inj) 0 ml IV STAT PRN; Protocol PRN Reason: Hypoglycemia Protocol Diltiazem HCl (Cardizem Cd) 120 mg PO DAILY [facility] Last Admin: 05/07/18 11:16 Dose: Not Given Diltiazem HCl (Cardizem) 60 mg PO TID [facility] Last Admin: 05/16/18 09:37 Dose: 60 mg Hydromorphone HCl (Dilaudid) 0.5 mg IVP Q4H PRN PRN Reason: Pain, severe (8-10) Last Admin: 05/15/18 05:23 Dose: 0.5 mg Meropenem (Merrem Iv 1 Gm Premix) 1 gm in 50 mls @ 100 mls/hr IVPB Q8 [facility]; Pr otocol Last Admin: 05/16/18 05:17 Dose: 100 mls/hr Vancomycin HCl (Vancomycin 1gm) 1 gm in 250 mls @ 167 mls/hr IVPB Q12H [facility]; Protocol Last Admin: 05/16/18 03:06 Dose: 167 mls/hr Dexmedetomidine HCl (Precedex 400mcg/100ml) 400 mcg in 100 mls @ 3.357 mls/hr IV .Q24H PRN; Protocol PRN Reason: Sedation Last Admin: 05/16/18 05:22 Dose: 0.8 mcg/kg/hr, 13.426 mls/hr Dextrose (Dextrose 5% In Water 1000 Ml) 1,000 mls @ 0 mls/hr IV .Q0M PRN; Protocol PRN Reason: Hypoglycemia Protocol Micafungin Sodium 100 mg/ (Sodium Chloride) 100 mls @ 100 mls/hr IV DAILY [facility]; Protocol Stop: 05/17/18 13:16 Last Admin: 05/16/18 09:53 Dose: 100 mls/hr diltiaZEM IVPB 100mg in NS (Cardizem 100mg In Ns) 100 mls @ 10 mls/hr IV .Q10H PRN; Protocol PRN Reason: TITRATE PER MD ORDER Last Titration: 05/15/18 09:00 Dose: 0 mg/hr, 0 mls/hr NOREPINEPHRINE BIT/0.9 % NACL (Levophed 4 Mg/ 250 Ml Ns Premixed) 4 mg in 250 mls @ 15 mls/hr IV .[id number] PRN; Protocol PRN Reason: TITRATE PER MD ORDER Last Titration: 05/13/18 12:00 Dose: 0 mcg/min, 0 mls/hr Fentanyl Citrate (Fentanyl Citrate/Sodium Chloride 1 Mg/100 Ml) 1,000 mcg in 100 mls @ 2 mls/hr IV .Q24H PRN; Protocol PRN Reason: TITRATE PER MD ORDER Last Titration: 05/15/18 19:00 Dose: 20 mcg/hr, 2 mls/hr Insulin Human Lispro (Humalog High) 0 units SC ACHS [facility]; Protocol Last Admin: 05/16/18 09:06 Dose: Not Given Levalbuterol HCl (Xopenex) 0.63 mg IH [id number] PRN PRN Reason: Shortness of Breath Last Admin: 05/15/18 02:05 Dose: 0.63 mg Levalbuterol HCl (Xopenex) 0.63 mg IH TIDRESP [facility] Last Admin: 05/16/18 07:01 Dose: 0.63 mg Methylprednisolone (Solu-Medrol) 40 mg IVP Q12 [facility] Last Admin: 05/16/18 09:47 Dose: 40 mg Pantoprazole Sodium (Protonix Ec Tab) 40 mg PO 0600 [facility] Last Admin: 05/08/18 05:00 Dose: 40 mg Pantoprazole Sodium (Protonix Inj) 40 mg IVP DAILY [facility] Last Admin: 05/16/18 09:52 Dose: 40 mg Sotalol HCl (Betapace) 40 mg PO BID [facility] Last Admin: 05/11/18 09:16 Dose: Not Given Verapamil HCl (Calan Tab) 40 mg PO TID [facility] Last Admin: 05/11/18 09:16 Dose: Not Given Verapamil HCl (Verapamil Inj) 2.5 mg IVP Q6 PRN PRN Reason: FOR HR GREATER THAN 130 Last Admin: 05/16/18 09:51 Dose: 2.5 mg - Labs Labs: 05/16/18 06:30 05/16/18 06:30 PT 14.0 SECONDS (9.4-12.5) H 05/15/18 20:43 INR 1.26 05/15/18 20:43 APTT 30.5 Seconds (26.9-38.3) 05/15/18 20:43 - Additional Findings Additional findings: - Constitutional Appears: Cachectic, Chronically Ill - Head Exam Head Exam: ATRAUMATIC, NORMAL INSPECTION - Eye Exam Eye Exam: EOMI, Normal appearance, PERRL. absent: Scleral icterus - ENT Exam ENT Exam: Mucous Membranes Moist - Respiratory Exam Respiratory Exam: Decreased Breath Sounds, occasionally breathing over vent. absent: Clear to Ausculation Bilateral - Cardiovascular Exam Cardiovascular Exam: Tachycardia, REGULAR RHYTHM, +S1, +S2. absent: Murmur - GI/Abdominal Exam GI & Abdominal Exam: Soft, Normal Bowel Sounds. 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 Patient was diagnosed with sepsis 2/2 to HCAP. On 05/05, patient became hypoxia and was in respiratory distress. Patient was intubated and sedated with propofol and versed. #History of small cell lung cancer stage 4 on radiation and chemotherapy -progression of disease from metastatic cancer vs aspiration pneumonia vs hospital-acquired pneumonic process in immuocompromised patient currently on systemic chemotherapy, completed six cycles of carboplatin and etoposide and then maintained on Tecentriq and also iridium, which is the bisphosphonate for metastatic disease in the bone -currently on Tecentriq * Tecentriq - 47% association with pneumonitis as complication of treatment * hoping for improvement on steroids - was on methyprednisolone 60mg ivp q6h now on 40mg ivp q12h -most recent PET CT scan ~3 weeks ago showed dramatic improvement in his disease -currently intubated and sedated - continue to maintain oxygen saturation and continue steroids - if condition does not improve in next 24 hours we will plan on supportive care alone -EEG - moderate to severe non-specific diffuse disturbance of cortical activity, no seizures, patient not in status epilepticus #SIRS, consider sepsis due to multifocal HCAP -CT of chest showed multifocal pneumonia. Patient completed 7 days of merrem and doxycycline on the floors. Now on vancomycin 1g q12h and merrem 1g q8h which has been stopped. He is currently not on any abx. ID Dr Urrutia has been consulted. -blood cx and flu negative #History of atrial fibrillation #NSTEMI -He released troponins, he also has AFib with RVR - he is on lovenox 60mg ivp q12h however this will be held tonight in light of recent bleeding - his home eliquis 5mg bid is on hold, he is also receiving aspirin 300mg rectally, he is on sotalol 40mg po bid, his cardizem is currently being held. He is currently on amio drip. He is currently on verapmail 40mg po tid and verapil 2.5mg ivp q6h prn. He is on lasix 40mg iv bid. Cardio Dr Orozco is consulted. #COPD -Per pulm recommendation - continue pulmicort 0.5mg ih q12h and xopenex 0.63mg ih q6h prn and scheduled. Dispo: Palliative to have discussion with family regarding medical care going forward. Dr Bullard also to have discussion with family. Seen and discussed with Dr Bullard <Anu Bullard P - Last Filed: 05/18/18 19:22> Objective - Vital Signs/Intake and Output Vital Signs (last 24 hours): Temp Pulse Resp BP Pulse Ox 97.5 F L 65 21 95/45 L 100 05/18/18 14:00 05/18/18 18:00 05/16/18 07:03 05/18/18 13:59 05/18/18 14:00 Intake and Output: 05/18/18 05/19/18 18:59 06:59 Intake Total 2824 Balance 2824 - Medications Medications: Current Medications Acetaminophen (Tylenol 650 Mg Supp) 650 mg RC Q6H PRN PRN Reason: Fever >100.4 F Last Admin: 05/10/18 20:55 Dose: 650 mg Acetaminophen (Tylenol 650mg/20.3ml Solution Ud) 650 mg NG Q6H PRN PRN Reason: FEVER > 100.4 Last Admin: 05/14/18 09:29 Dose: 650 mg Aspirin (Aspirin Chewable) 81 mg PO DAILY [facility] Last Admin: 05/18/18 10:38 Dose: 81 mg Budesonide (Pulmicort Respules) 0.5 mg IH [id number] [facility] Last Admin: 05/18/18 08:19 Dose: 0.5 mg Dextrose (Dextrose 50% Inj) 0 ml IV STAT PRN; Protocol PRN Reason: Hypoglycemia Protocol Dextrose (Dextrose 50% Inj) 0 ml IV STAT PRN; Protocol PRN Reason: Hypoglycemia Protocol Diltiazem HCl (Cardizem Cd) 120 mg PO DAILY [facility] Last Admin: 05/07/18 11:16 Dose: Not Given Hydromorphone HCl (Dilaudid) 0.5 mg IVP Q4H PRN PRN Reason: Pain, severe (8-10) Last Admin: 05/18/18 06:32 Dose: 0.5 mg Meropenem (Merrem Iv 1 Gm Premix) 1 gm in 50 mls @ 100 mls/hr IVPB Q8 [facility]; Protocol Last Admin: 05/18/18 14:38 Dose: 100 mls/hr Dexmedetomidine HCl (Precedex 400mcg/100ml) 400 mcg in 100 mls @ 3.357 mls/hr IV .Q24H PRN; Protocol PRN Reason: Sedation Last Titration: 05/17/18 22:54 Dose: 0 mcg/kg/hr, 0 mls/hr Dextrose (Dextrose 5% In Water 1000 Ml) 1,000 mls @ 0 mls/hr IV .Q0M PRN; Protocol PRN Reason: Hypoglycemia Protocol Fentanyl Citrate (Fentanyl Citrate/Sodium Chloride 1 Mg/100 Ml) 1,000 mcg in 100 mls @ 2 mls/hr IV .Q24H PRN; Protocol PRN Reason: TITRATE PER MD ORDER Last Admin: 05/18/18 11:26 Dose: 70 mcg/hr, 7 mls/hr Dextrose (Dextrose 5% In Water 1000 Ml) 1,000 mls @ 0 mls/hr IV .Q0M PRN; Protocol PRN Reason: Hypoglycemia Protocol Insulin Human Lispro (Humalog High) 0 units SC Q6 [facility]; Protocol Last Admin: 05/18/18 16:45 Dose: 7 unit Levalbuterol HCl (Xopenex) 0.63 mg IH [id number] PRN PRN Reason: Shortness of Breath Last Admin: 05/15/18 02:05 Dose: 0.63 mg Levalbuterol HCl (Xopenex) 0.63 mg IH TIDRESP [facility] Last Admin: 05/18/18 14:25 Dose: 0.63 mg Methylprednisolone (Solu-Medrol) 20 mg IVP Q12 [facility] Pantoprazole Sodium (Protonix Inj) 40 mg IVP DAILY [facility] Last Admin: 05/18/18 10:38 Dose: 40 mg Propranolol HCl (Inderal) 20 mg PO Q6H [facility] Last Admin: 05/18/18 16:44 Dose: 20 mg Sotalol HCl (Betapace) 40 mg PO BID [facility] Last Admin: 05/11/18 09:16 Dose: Not Given Verapamil HCl (Calan Tab) 40 mg PO TID [facility] Last Admin: 05/11/18 09:16 Dose: Not Given Verapamil HCl (Verapamil Inj) 2.5 mg IVP Q6 PRN PRN Reason: FOR HR GREATER THAN 130 Last Admin: 05/17/18 13:34 Dose: 2.5 mg - Labs Labs: 05/18/18 05:40 05/18/18 05:40 PT 14.0 SECONDS (9.4-12.5) H 05/15/18 20:43 INR 1.26 05/15/18 20:43 APTT 30.5 Seconds (26.9-38.3) 05/15/18 20:43 Attending/Attestation - Attestation I have personally seen and examined this patient.: Yes I have fully participated in the care of the patient.: Yes I have reviewed all pertinent clinical information, including history, physical exam and plan: Yes
--- NOTE | 2018-05-16 13:56 | PN ---
DATE: 05/16/2018 REASON FOR CONSULTATION AND FOLLOWUP: Status post respiratory failure, [id number] myocardial infarction, lung CA with metastasis, AFib with rapid ventricular rate (paroxysmal). SUBJECTIVE: The patient remains on vent, was on Cardizem, off Cardizem, on p.o., on sedation. OBJECTIVE: Heart rate AFib with rapid ventricular rate, remains on vent. PHYSICAL EXAMINATION VITAL SIGNS: Temperature afebrile, heart rate 108, and blood pressure 103/65. HEENT: PERRLA. Extraocular muscles intact. NECK: Supple. No carotid bruits or thyromegaly. CHEST: Clear to auscultation. HEART: S1 and S2 regular. ABDOMEN: Soft. EXTREMITIES: Clubbing and cyanosis negative. LABORATORY DATA: Blood workup as follows: WBC 10.6, hemoglobin 7.3, hematocrit 26.2, and platelet count 99. Chemistry shows sodium 157, potassium 4.8, chloride 119, carbon dioxide 42, anion gap of 1, BUN 64, and creatinine 1.1. IMPRESSION: A 77-year-old male with past medical history significant for lung cancer with metastasis; history of atrial fibrillation, paroxysmal; failure to thrive; admitted initially to the floor with failure to thrive, respiratory distress, intubated. Now, the patient had lung cancer with metastasis, respiratory failure, difficult to extubate, severe protein-calorie malnutrition status post multiple IV albumin given, off Cardizem drip, but on p.o. Cardizem, on sedation. Through the nasogastric tube, he is being fed. RECOMMENDATIONS: Continue Cardizem, continue IV verapamil 2.5 mg every 6 hours p.r.n. Continue NG feeding. Yesterday free fluid started. We will increase the free fluid for hypernatremia to 400 mL every [address] Bullard for providing us the opportunity in taking care of the patient. We will follow with you. Aura Orozco MD
--- NOTE | 2018-05-16 14:35 | CP.CCUPN ---
<Haley Mckeno - Last Filed: 05/16/18 14:59> CCU Subjective - Physician Review Subjective (Free Text): Haley Mckeon, PGY-1, ICU Progress Note for Dr. Gtz Patient seen and evaluated at bedside. Patient was found to have blood in the ET tube yesterday night. Patient was evaluated for blood in ET tube after, however, bleeding stopped spontaneously. Patient is currently intubated and sedated with vent settings of 450/18/12/100%. CCU Objective - Vital Signs / Intake & Output Intake and Output (Last 8hrs): Intake & Output 05/15/18 05/16/18 05/16/18 22:59 06:59 14:59 Intake Total 2492 1810 Output Total 900 1050 Balance 1592 760 Weight 158 lb Intake: IV 1172 1090 Left 120 Right Hand 120 Right Subclavian 800 890 Tube Feeding 720 720 Other 600 Output: Urine 900 650 Urethral (Yang) 900 650 Stool 400 Emesis 0 Oral Regurgitation 0 Other 0 Other: # Bowel Movements 2 - Physical Exam Head: Positive for: Atraumatic, Normocephalic Pupils: Positive for: PERRL Extroacular Muscles: Positive for: EOMI Conjunctiva: Positive for: Normal Mouth: Positive for: Moist Mucous Membranes Neck: Positive for: Normal Range of Motion Respiratory/Chest: Positive for: Respiratory Distress, Wheezes, Rales, Other (currently on ventilator). Negative for: Accessory Muscle Use Cardiovascular: Positive for: Normal S1, S2, Irregular Rhythm. Negative for: Murmurs Abdomen: Negative for: Tenderness, Distention, Peritoneal Signs Back: Positive for: Normal Inspection Upper Extremity: Positive for: Normal Inspection. Negative for: Cyanosis, Edema Lower Extremity: Positive for: Normal Inspection. Negative for: Edema Neurological: Positive for: Other (intubated) Skin: Positive for: Warm, Dry, Normal Color, Other (R IJ central port noted). Negative for: Rashes - Medications Active Medications: Active Medications Generic Name Dose Route Start Last Admin Trade Name Freq PRN Reason Stop Dose Admin Acetaminophen 650 mg 05/10/18 20:29 05/10/18 20:55 Tylenol 650 Mg Supp RC 650 mg Q6H PRN Administration Fever >100.4 F Acetaminophen 650 mg 05/14/18 09:13 05/14/18 09:29 Tylenol 650mg/20.3ml Solution Ud NG 650 mg Q6H PRN Administration FEVER > 100.4 Aspirin 81 mg 05/12/18 11:30 05/16/18 09:37 Aspirin Chewable PO 81 mg DAILY ZARI Administration Budesonide 0.5 mg 04/27/18 20:00 05/16/18 07:01 Pulmicort Respules IH 0.5 mg [id number] ZARI Administration Dextrose 0 ml 05/09/18 10:48 Dextrose 50% Inj IV STAT PRN Hypoglycemia Protocol Protocol Diltiazem HCl 120 mg 04/27/18 10:00 05/07/18 11:16 Cardizem Cd PO Not Given DAILY ZARI Diltiazem HCl 60 mg 05/15/18 09:00 05/16/18 09:37 Cardizem PO 60 mg TID ZARI Administration Hydromorphone HCl 0.5 mg 05/13/18 00:26 05/15/18 05:23 Dilaudid IVP 0.5 mg Q4H PRN Administration Pain, severe (8-10) Meropenem 1 gm in 50 mls @ 100 mls/hr 05/05/18 15:15 05/16/18 05:17 Merrem Iv 1 Gm Premix IVPB 100 mls/hr Q8 ZARI Administration Protocol Vancomycin HCl 1 gm in 250 mls @ 167 mls/hr 05/05/18 15:15 05/16/18 03:06 Vancomycin 1gm IVPB 167 mls/hr Q12H ZARI Administration Protocol Dexmedetomidine HCl 400 mcg in 100 mls @ 3.357 mls/hr 05/09/18 10:31 05/16/18 05:22 Precedex 400mcg/100ml IV 0.8 mcg/kg/hr .Q24H PRN 13.426 mls/hr Sedation Administration Protocol 0.2 MCG/KG/HR Dextrose 1,000 mls @ 0 mls/hr 05/09/18 10:48 Dextrose 5% In Water 1000 Ml IV .Q0M PRN Hypoglycemia Protocol Protocol Per Protocol Micafungin Sodium 100 mg/ 100 mls @ 100 mls/hr 05/10/18 13:15 05/16/18 09:53 Sodium Chloride IV 05/17/18 13:16 100 mls/hr DAILY ZARI Administration Protocol diltiaZEM IVPB 100mg in NS 100 mls @ 10 mls/hr 05/11/18 08:12 05/15/18 09:00 Cardizem 100mg In Ns IV 0 mg/hr .Q10H PRN 0 mls/hr TITRATE PER MD ORDER Titration Protocol 10 MG/HR NOREPINEPHRINE BIT/0.9 % NACL 4 mg in 250 mls @ 15 mls/hr 05/12/18 19:49 05/13/18 12:00 Levophed 4 Mg/ 250 Ml Ns Premixed IV 0 mcg/min .[id number] PRN 0 mls/hr TITRATE PER MD ORDER Titration Protocol 4 MCG/MIN Fentanyl Citrate 1,000 mcg in 100 mls @ 2 mls/hr 05/14/18 16:24 05/15/18 19:00 Fentanyl Citrate/Sodium Chloride 1 Mg/100 Ml IV 20 mcg/hr .Q24H PRN 2 mls/hr TITRATE PER MD ORDER Titration Protocol 20 MCG/HR Insulin Human Lispro 0 units 05/09/18 11:30 05/16/18 12:13 Humalog High SC 10 u ACHS ZARI Administration Protocol Levalbuterol HCl 0.63 mg 04/27/18 12:16 05/15/18 02:05 Xopenex IH 0.63 mg [id number] PRN Administration Shortness of Breath Levalbuterol HCl 0.63 mg 04/28/18 20:00 05/16/18 13:51 Xopenex IH 0.63 mg TIDRESP ZARI Administration Methylprednisolone 40 mg 05/15/18 22:00 05/16/18 09:47 Solu-Medrol IVP 40 mg Q12 ZARI Administration Pantoprazole Sodium 40 mg 05/09/18 10:00 05/16/18 09:52 Protonix Inj IVP 40 mg DAILY ZARI Administration Sotalol HCl 40 mg 05/09/18 10:00 05/11/18 09:16 Betapace PO Not Given BID ZARI Verapamil HCl 40 mg 05/10/18 14:00 05/11/18 09:16 Calan Tab PO Not Given TID ZARI Verapamil HCl 2.5 mg 05/10/18 12:31 05/16/18 09:51 Verapamil Inj IVP 2.5 mg Q6 PRN Administration FOR HR GREATER THAN 130 - Patient Studies Lab Studies: Microbiology Studies 05/13/18 10:05 Blood Culture - Preliminary Blood NO GROWTH AFTER 3 DAYS 05/13/18 09:25 Blood Culture - Preliminary Blood NO GROWTH AFTER 3 DAYS 05/14/18 07:45 Gram Stain - Final Trachasp Sputum Culture - Final NORMAL ORAL ALFIE Lab Studies 05/16/18 05/16/18 05/16/18 Range/Units 06:45 06:30 06:30 WBC 16.6 H (4.5-11.0) 10^3/uL RBC 2.54 L (3.5-6.1) 10^6/uL Hgb 7.3 L (14.0-18.0) g/dL Hct 26.2 L (42.0-52.0) % MCV 103.1 (80.0-105.0) fl MCH 28.7 (25.0-35.0) pg MCHC 27.9 L (31.0-37.0) g/dl RDW 20.3 H (11.5-14.5) % Plt Count 99 L (120.0-450.0) 10^3/uL MPV 12.3 H (7.0-11.0) fl Neutrophils % (Manual) 93 H (50.0-70.0) % Band Neutrophils % 3 H (0-2) % Lymphocytes % (Manual) 1 L (22.0-35.0) % Monocytes % (Manual) 3 (1.0-6.0) % Nucleated RBC % 3 % Platelet Evaluation Low (NORMAL) Large Platelets Present Hypochromasia Slight Basophilic Stippling Slight Anisocytosis (manual) 1+ Macrocytosis (manual) 1+ PT (9.4-12.5) SECONDS INR APTT (26.9-38.3) Seconds pCO2 72 H* (35-45) mm/Hg pO2 102.0 H (80-100) mm/Hg HCO3 40.7 H* (21-28) mmol/L ABG pH 7.36 (7.35-7.45) ABG Total CO2 42.9 H (22-28) mmol.L ABG O2 Saturation 99.7 H (95-98) % ABG Base Excess 13.6 H (-2.0-3.0) mmol/L ABG Hemoglobin 7.5 L (11.7-17.4) g/dL ABG Carboxyhemoglobin 3.0 H (0.5-1.5) % POC ABG HHb (Measured) 0.3 (0-5) % ABG Methemoglobin 1.0 (0.0-3.0) % Hgb O2 Saturation 95.6 (95.0-98.0) % Sodium 157 H* (132-148) mmol/L Potassium 4.8 (3.6-5.0) mmol/L Chloride 119 H (98-107) mmol/L Carbon Dioxide 42 H (21-33) mmol/L Anion Gap 1 L (10-20) BUN 64 H (7-21) mg/dL Creatinine 1.1 (0.8-1.5) mg/dl Est GFR ( Amer) > 60 Est GFR (Non-Af Amer) > 60 Random Glucose 142 H (70-110) mg/dL Calcium 8.1 L (8.4-10.5) mg/dL Total Bilirubin 0.5 (0.2-1.3) mg/dL AST 37 (17-59) U/L ALT 201 H (7-56) U/L Alkaline Phosphatase 173 H D (38-126) U/L Total Protein 4.8 L (5.8-8.3) g/dL Albumin 2.7 L (3.0-4.8) g/dL Globulin 2.1 gm/dL Albumin/Globulin Ratio 1.2 (1.1-1.8) 05/15/18 05/15/18 05/15/18 Range/Units 20:43 20:43 20:43 WBC 20.5 H D (4.5-11.0) 10^3/uL RBC 2.65 L (3.5-6.1) 10^6/uL Hgb 7.7 L (14.0-18.0) g/dL Hct 27.5 L (42.0-52.0) % MCV 103.8 (80.0-105.0) fl MCH 29.1 (25.0-35.0) pg MCHC 28.0 L (31.0-37.0) g/dl RDW 20.2 H (11.5-14.5) % Plt Count 108 L (120.0-450.0) 10^3/uL MPV 11.7 H (7.0-11.0) fl Neutrophils % (Manual) (50.0-70.0) % Band Neutrophils % (0-2) % Lymphocytes % (Manual) (22.0-35.0) % Monocytes % (Manual) (1.0-6.0) % Nucleated RBC % % Platelet Evaluation (NORMAL) Large Platelets Hypochromasia Basophilic Stippling Anisocytosis (manual) Macrocytosis (manual) PT 14.0 H (9.4-12.5) SECONDS INR 1.26 APTT 30.5 (26.9-38.3) Seconds pCO2 (35-45) mm/Hg pO2 (80-100) mm/Hg HCO3 (21-28) mmol/L ABG pH (7.35-7.45) ABG Total CO2 (22-28) mmol.L ABG O2 Saturation (95-98) % ABG Base Excess (-2.0-3.0) mmol/L ABG Hemoglobin (11.7-17.4) g/dL ABG Carboxyhemoglobin (0.5-1.5) % POC ABG HHb (Measured) (0-5) % ABG Methemoglobin (0.0-3.0) % Hgb O2 Saturation (95.0-98.0) % Sodium 154 H (132-148) mmol/L Potassium 5.1 H (3.6-5.0) mmol/L Chloride 115 H (98-107) mmol/L Carbon Dioxide 40 H (21-33) mmol/L Anion Gap 4 L (10-20) BUN 62 H (7-21) mg/dL Creatinine 1.0 (0.8-1.5) mg/dl Est GFR ( Amer) > 60 Est GFR (Non-Af Amer) > 60 Random Glucose 282 H (70-110) mg/dL Calcium 8.4 (8.4-10.5) mg/dL Total Bilirubin (0.2-1.3) mg/dL AST (17-59) U/L ALT (7-56) U/L Alkaline Phosphatase (38-126) U/L Total Protein (5.8-8.3) g/dL Albumin (3.0-4.8) g/dL Globulin gm/dL Albumin/Globulin Ratio (1.1-1.8) 05/15/18 Range/Units 17:51 WBC (4.5-11.0) 10^3/uL RBC (3.5-6.1) 10^6/uL Hgb (14.0-18.0) g/dL Hct (42.0-52.0) % MCV (80.0-105.0) fl MCH (25.0-35.0) pg MCHC (31.0-37.0) g/dl RDW (11.5-14.5) % Plt Count (120.0-450.0) 10^3/uL MPV (7.0-11.0) fl Neutrophils % (Manual) (50.0-70.0) % Band Neutrophils % (0-2) % Lymphocytes % (Manual) (22.0-35.0) % Monocytes % (Manual) (1.0-6.0) % Nucleated RBC % % Platelet Evaluation (NORMAL) Large Platelets Hypochromasia Basophilic Stippling Anisocytosis (manual) Macrocytosis (manual) PT (9.4-12.5) SECONDS INR APTT (26.9-38.3) Seconds pCO2 (35-45) mm/Hg pO2 (80-100) mm/Hg HCO3 (21-28) mmol/L ABG pH (7.35-7.45) ABG Total CO2 (22-28) mmol.L ABG O2 Saturation (95-98) % ABG Base Excess (-2.0-3.0) mmol/L ABG Hemoglobin (11.7-17.4) g/dL ABG Carboxyhemoglobin (0.5-1.5) % POC ABG HHb (Measured) (0-5) % ABG Methemoglobin (0.0-3.0) % Hgb O2 Saturation (95.0-98.0) % Sodium 155 H (132-148) mmol/L Potassium 4.8 (3.6-5.0) mmol/L Chloride 116 H (98-107) mmol/L Carbon Dioxide 40 H (21-33) mmol/L Anion Gap 4 L (10-20) BUN 59 H (7-21) mg/dL Creatinine 1.0 (0.8-1.5) mg/dl Est GFR ( Amer) > 60 Est GFR (Non-Af Amer) > 60 Random Glucose 182 H (70-110) mg/dL Calcium 8.3 L (8.4-10.5) mg/dL Total Bilirubin (0.2-1.3) mg/dL AST (17-59) U/L ALT (7-56) U/L Alkaline Phosphatase (38-126) U/L Total Protein (5.8-8.3) g/dL Albumin (3.0-4.8) g/dL Globulin gm/dL Albumin/Globulin Ratio (1.1-1.8) Laboratory Results - last 24 hr 05/15/18 05/15/18 05/15/18 17:51 20:43 20:43 WBC 20.5 H D RBC 2.65 L Hgb 7.7 L Hct 27.5 L MCV 103.8 MCH 29.1 MCHC 28.0 L RDW 20.2 H Plt Count 108 L MPV 11.7 H Neutrophils % (Manual) Band Neutrophils % Lymphocytes % (Manual) Monocytes % (Manual) Nucleated RBC % Platelet Evaluation Large Platelets Hypochromasia Basophilic Stippling Anisocytosis (manual) Macrocytosis (manual) PT 14.0 H INR 1.26 APTT 30.5 pCO2 pO2 HCO3 ABG pH ABG Total CO2 ABG O2 Saturation ABG Base Excess ABG Hemoglobin ABG Carboxyhemoglobin POC ABG HHb (Measured) ABG Methemoglobin Hgb O2 Saturation Sodium 155 H Potassium 4.8 Chloride 116 H Carbon Dioxide 40 H Anion Gap 4 L BUN 59 H Creatinine 1.0 Est GFR ( Amer) > 60 Est GFR (Non-Af Amer) > 60 Random Glucose 182 H Calcium 8.3 L Total Bilirubin AST ALT Alkaline Phosphatase Total Protein Albumin Globulin Albumin/Globulin Ratio 05/15/18 05/16/18 05/16/18 20:43 06:30 06:30 WBC 16.6 H RBC 2.54 L Hgb 7.3 L Hct 26.2 L MCV 103.1 MCH 28.7 MCHC 27.9 L RDW 20.3 H Plt Count 99 L MPV 12.3 H Neutrophils % (Manual) 93 H Band Neutrophils % 3 H Lymphocytes % (Manual) 1 L Monocytes % (Manual) 3 Nucleated RBC % 3 Platelet Evaluation Low Large Platelets Present Hypochromasia Slight Basophilic Stippling Slight Anisocytosis (manual) 1+ Macrocytosis (manual) 1+ PT INR APTT pCO2 pO2 HCO3 ABG pH ABG Total CO2 ABG O2 Saturation ABG Base Excess ABG Hemoglobin ABG Carboxyhemoglobin POC ABG HHb (Measured) ABG Methemoglobin Hgb O2 Saturation Sodium 154 H 157 H* Potassium 5.1 H 4.8 Chloride 115 H 119 H Carbon Dioxide 40 H 42 H Anion Gap 4 L 1 L BUN 62 H 64 H Creatinine 1.0 1.1 Est GFR ( Amer) > 60 > 60 Est GFR (Non-Af Amer) > 60 > 60 Random Glucose 282 H 142 H Calcium 8.4 8.1 L Total Bilirubin 0.5 AST 37 ALT 201 H Alkaline Phosphatase 173 H D Total Protein 4.8 L Albumin 2.7 L Globulin 2.1 Albumin/Globulin Ratio 1.2 05/16/18 06:45 WBC RBC Hgb Hct MCV MCH MCHC RDW Plt Count MPV Neutrophils % (Manual) Band Neutrophils % Lymphocytes % (Manual) Monocytes % (Manual) Nucleated RBC % Platelet Evaluation Large Platelets Hypochromasia Basophilic Stippling Anisocytosis (manual) Macrocytosis (manual) PT INR APTT pCO2 72 H* pO2 102.0 H HCO3 40.7 H* ABG pH 7.36 ABG Total CO2 42.9 H ABG O2 Saturation 99.7 H ABG Base Excess 13.6 H ABG Hemoglobin 7.5 L ABG Carboxyhemoglobin 3.0 H POC ABG HHb (Measured) 0.3 ABG Methemoglobin 1.0 Hgb O2 Saturation 95.6 Sodium Potassium Chloride Carbon Dioxide Anion Gap BUN Creatinine Est GFR ( Amer) Est GFR (Non-Af Amer) Random Glucose Calcium Total Bilirubin AST ALT Alkaline Phosphatase Total Protein Albumin Globulin Albumin/Globulin Ratio Radiology Impressions: Radiology Impressions Chest X-Ray 05/15/18 22:17 IMPRESSION: Stable bilateral mixed alveolar and interstitial infiltrates with trace bilateral pleural effusions difficult to completely exclude. Adequate adjustment of endotracheal tube. Chest X-Ray 05/16/18 07:00 IMPRESSION: Stable mixed interstitial/alveolar infiltrates bilaterally without interval improvement appreciable. No significant interval change bilaterally. 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 Patient was diagnosed with sepsis 2/2 to HCAP. On 05/05, patient became hypoxia and was in respiratory distress. Patient subsequently intubated and sedated with propofol and versed. Will attempt sedation vacation today Plan: Neuro: S/p intubation for hypoxic repsiratory failure -Intubated on 05/05/18, currently sedated on precedex and fentanyl -Head CT w/o contrast on 05/10/18 showed no acute intracranial abnormalities -EEG on 05/11/18 showed abnormal EEG record that demonstrate the presence of moderate to severe non specific diffuse disturbance of cortical activity, findings are not specific. No seizures. Patient is not in status epilepticus. Cardio: Atrial flutter -EKG 05/10: Atrial flutter with 2:1 AV block with HR: 156 -Currently rated titrated off cardizem drip. -Levophed titrated off -Increased to cardizem 60 mg QID -Maintain MAP>65. NSTEMI -EKG 05/10: Atrial flutter with 2:1 AV block with HR: 156 -Troponin: 05/06/09 10.9, 9.66, 8.96, 6.33 -Continue Aspirin 81mg, topical nitroglycerin q6 -Continue Lovenox 60 mg Q12 Elevated BNP -BNP: 3240, BNP pending for today. Consider diastolic CHF -Echocardiogram 05/07: EF: 49.3%, trace AR, MR, RVSP: 50 -Stopped lasix drip as patient has been tachycardic. Patient is likely dry and has been given boluses of NS with moderate improvement in heart rate. Pulm/Oncology Hypoxic respiratory failure 2/2 to ARDS from small cell lung carcinoma vs. pneumonitis -Patient intubated and sedated with settings 450/18/12/100% -Maintain O2 saturation>90%. ABG 05/16 shows pH: 7.36, pCO2: 72, and pO2: 102 yesterday, which is improved from yesterday. -CXR: unchanged from prior CXR yesterday -As per Dr. Bullard, Heme/Onc, patient has possible pneumonitis as complication of Tecentriq treatment for SCLC -Treat Tecentriq side effect with solumedrol 40 mg Q12 -Recent PET CT shows improvement in small cell lung carcinoma -Weaning and sedation trials, Elevate bed to 30 degrees, oral protective hygiene daily, conservative fluid management COPD -Continue with Pulmicort 0.5 mg IH Q12, and xopenex 0.63 mg IH TID, solumedrol 60 mg Q6 GI: Elevated LFTs -improved today, consider dehydration vs congestive hepatopathy, will continue to trend Diet -continue jevity feedings Prophylaxis -Protonix 40 mg IV daily /Nephro: -BUN/Cr stable -Maintain euvolemia -Replace electrolytes as necessary ID: Multifocal pneumonia -CXR today shows no change from prior CXR yesterday. -Chest CT 04/27: multifocal pneumonia -Afebrile, WBC is 16.6 from 20.5, downtrending -Blood culture was negative for 5 days upon admission from 05/09. Blood culture reordered was negative for 72 hours. -Negative urine culture, tracheal aspiration culture, C. Dif stool toxin -Procal 05/05: 0.55. Repeat procal was 0.62 on 05/09/18 -Vancomycin 1 gm Q12 day 11, Merrem 1 gm Q8 day 11, Nystatin 5 mg QID Endocrinology: -Random glucose: 99 -HgbA1c: 6.2 -High SSI -Continue with high dose sliding scale insulin with target glucose 140-180 Heme Anemia -Hg is 7.3 today from 7.7 yesterday DVT prophylaxis -Lovenox 60 mg Q12 as therapeutic anticoagulation for NSTEMI Disposition: Patient prognosis is critical. Per families wishes, patient to remain full code at this time Patient seen and examined with Dr. Gtz. - Date & Time Date: 05/16/18 Time: 14:40 <Shay Gtz - Last Filed: 05/16/18 18:18> CCU Objective - Vital Signs / Intake & Output Vital Signs (Last 4 hours): Vital Signs Temp Pulse BP 05/16/18 16:00 99 F 05/16/18 15:29 95 H 123/54 L Intake and Output (Last 8hrs): Intake & Output 05/16/18 05/16/18 05/16/18 06:59 14:59 22:59 Intake Total 1810 100 62 Output Total 1050 Balance 760 100 62 Weight 158 lb Intake: IV 1090 100 62 Right Subclavian 890 Tube Feeding 720 Output: Urine 650 Urethral (Yang) 650 Stool 400 Emesis 0 Oral Regurgitation 0 Other 0 Other: # Bowel Movements 2 - Medications Active Medications: Active Medications Generic Name Dose Route Start Last Admin Trade Name Freq PRN Reason Stop Dose Admin Acetaminophen 650 mg 05/10/18 20:29 05/10/18 20:55 Tylenol 650 Mg Supp RC 650 mg Q6H PRN Administration Fever >100.4 F Acetaminophen 650 mg 05/14/18 09:13 05/14/18 09:29 Tylenol 650mg/20.3ml Solution Ud NG 650 mg Q6H PRN Administration FEVER > 100.4 Aspirin 81 mg 05/12/18 11:30 05/16/18 09:37 Aspirin Chewable PO 81 mg DAILY ZARI Administration Budesonide 0.5 mg 04/27/18 20:00 05/16/18 07:01 Pulmicort Respules IH 0.5 mg [id number] ZARI Administration Dextrose 0 ml 05/09/18 10:48 Dextrose 50% Inj IV STAT PRN Hypoglycemia Protocol Protocol Diltiazem HCl 120 mg 04/27/18 10:00 05/07/18 11:16 Cardizem Cd PO Not Given DAILY ZARI Diltiazem HCl 60 mg 05/15/18 09:00 05/16/18 15:29 Cardizem PO 60 mg TID ZARI Administration Hydromorphone HCl 0.5 mg 05/13/18 00:26 05/15/18 05:23 Dilaudid IVP 0.5 mg Q4H PRN Administration Pain, severe (8-10) Meropenem 1 gm in 50 mls @ 100 mls/hr 05/05/18 15:15 05/16/18 05:17 Merrem Iv 1 Gm Premix IVPB 100 mls/hr Q8 ZARI Administration Protocol Vancomycin HCl 1 gm in 250 mls @ 167 mls/hr 05/05/18 15:15 05/16/18 15:49 Vancomycin 1gm IVPB 167 mls/hr Q12H ZARI Administration Protocol Dexmedetomidine HCl 400 mcg in 100 mls @ 3.357 mls/hr 05/09/18 10:31 05/16/18 15:52 Precedex 400mcg/100ml IV 0.8 mcg/kg/hr .Q24H PRN 13.426 mls/hr Sedation Administration Protocol 0.2 MCG/KG/HR Dextrose 1,000 mls @ 0 mls/hr 05/09/18 10:48 Dextrose 5% In Water 1000 Ml IV .Q0M PRN Hypoglycemia Protocol Protocol Per Protocol Micafungin Sodium 100 mg/ 100 mls @ 100 mls/hr 05/10/18 13:15 05/16/18 09:53 Sodium Chloride IV 05/17/18 13:16 100 mls/hr DAILY ZARI Administration Protocol diltiaZEM IVPB 100mg in NS 100 mls @ 10 mls/hr 05/11/18 08:12 05/15/18 09:00 Cardizem 100mg In Ns IV 0 mg/hr .Q10H PRN 0 mls/hr TITRATE PER MD ORDER Titration Protocol 10 MG/HR NOREPINEPHRINE BIT/0.9 % NACL 4 mg in 250 mls @ 15 mls/hr 05/12/18 19:49 05/13/18 12:00 Levophed 4 Mg/ 250 Ml Ns Premixed IV 0 mcg/min .[id number] PRN 0 mls/hr TITRATE PER MD ORDER Titration Protocol 4 MCG/MIN Fentanyl Citrate 1,000 mcg in 100 mls @ 2 mls/hr 05/14/18 16:24 05/16/18 15:55 Fentanyl Citrate/Sodium Chloride 1 Mg/100 Ml IV 20 mcg/hr .Q24H PRN 2 mls/hr TITRATE PER MD ORDER Administration Protocol 20 MCG/HR Insulin Human Lispro 0 units 05/09/18 11:30 05/16/18 12:13 Humalog High SC 10 u ACHS ZARI Administration Protocol Levalbuterol HCl 0.63 mg 04/27/18 12:16 05/15/18 02:05 Xopenex IH 0.63 mg [id number] PRN Administration Shortness of Breath Levalbuterol HCl 0.63 mg 04/28/18 20:00 05/16/18 13:51 Xopenex IH 0.63 mg [id number] ZARI Administration Methylprednisolone 40 mg 05/15/18 22:00 05/16/18 09:47 Solu-Medrol IVP 40 mg Q12 ZARI Administration Pantoprazole Sodium 40 mg 05/09/18 10:00 05/16/18 09:52 Protonix Inj IVP 40 mg DAILY ZARI Administration Sotalol HCl 40 mg 05/09/18 10:00 05/11/18 09:16 Betapace PO Not Given BID ZARI Verapamil HCl 40 mg 05/10/18 14:00 05/11/18 09:16 Calan Tab PO Not Given TID ZARI Verapamil HCl 2.5 mg 05/10/18 12:31 05/16/18 09:51 Verapamil Inj IVP 2.5 mg Q6 PRN Administration FOR HR GREATER THAN 130 - Patient Studies Lab Studies: Microbiology Studies 05/13/18 10:05 Blood Culture - Preliminary Blood NO GROWTH AFTER 3 DAYS 05/13/18 09:25 Blood Culture - Preliminary Blood NO GROWTH AFTER 3 DAYS 05/14/18 07:45 Gram Stain - Final Trachasp Sputum Culture - Final NORMAL ORAL ALFIE Lab Studies 05/16/18 05/16/18 05/16/18 Range/Units 06:45 06:30 06:30 WBC 16.6 H (4.5-11.0) 10^3/uL RBC 2.54 L (3.5-6.1) 10^6/uL Hgb 7.3 L (14.0-18.0) g/dL Hct 26.2 L (42.0-52.0) % MCV 103.1 (80.0-105.0) fl MCH 28.7 (25.0-35.0) pg MCHC 27.9 L (31.0-37.0) g/dl RDW 20.3 H (11.5-14.5) % Plt Count 99 L (120.0-450.0) 10^3/uL MPV 12.3 H (7.0-11.0) fl Neutrophils % (Manual) 93 H (50.0-70.0) % Band Neutrophils % 3 H (0-2) % Lymphocytes % (Manual) 1 L (22.0-35.0) % Monocytes % (Manual) 3 (1.0-6.0) % Nucleated RBC % 3 % Platelet Evaluation Low (NORMAL) Large Platelets Present Hypochromasia Slight Basophilic Stippling Slight Anisocytosis (manual) 1+ Macrocytosis (manual) 1+ PT (9.4-12.5) SECONDS INR APTT (26.9-38.3) Seconds pCO2 72 H* (35-45) mm/Hg pO2 102.0 H (80-100) mm/Hg HCO3 40.7 H* (21-28) mmol/L ABG pH 7.36 (7.35-7.45) ABG Total CO2 42.9 H (22-28) mmol.L ABG O2 Saturation 99.7 H (95-98) % ABG Base Excess 13.6 H (-2.0-3.0) mmol/L ABG Hemoglobin 7.5 L (11.7-17.4) g/dL ABG Carboxyhemoglobin 3.0 H (0.5-1.5) % POC ABG HHb (Measured) 0.3 (0-5) % ABG Methemoglobin 1.0 (0.0-3.0) % Hgb O2 Saturation 95.6 (95.0-98.0) % Sodium 157 H* (132-148) mmol/L Potassium 4.8 (3.6-5.0) mmol/L Chloride 119 H (98-107) mmol/L Carbon Dioxide 42 H (21-33) mmol/L Anion Gap 1 L (10-20) BUN 64 H (7-21) mg/dL Creatinine 1.1 (0.8-1.5) mg/dl Est GFR ( Amer) > 60 Est GFR (Non-Af Amer) > 60 Random Glucose 142 H (70-110) mg/dL Calcium 8.1 L (8.4-10.5) mg/dL Total Bilirubin 0.5 (0.2-1.3) mg/dL AST 37 (17-59) U/L ALT 201 H (7-56) U/L Alkaline Phosphatase 173 H D (38-126) U/L Total Protein 4.8 L (5.8-8.3) g/dL Albumin 2.7 L (3.0-4.8) g/dL Globulin 2.1 gm/dL Albumin/Globulin Ratio 1.2 (1.1-1.8) 05/15/18 05/15/18 05/15/18 Range/Units 20:43 20:43 20:43 WBC 20.5 H D (4.5-11.0) 10^3/uL RBC 2.65 L (3.5-6.1) 10^6/uL Hgb 7.7 L (14.0-18.0) g/dL Hct 27.5 L (42.0-52.0) % MCV 103.8 (80.0-105.0) fl MCH 29.1 (25.0-35.0) pg MCHC 28.0 L (31.0-37.0) g/dl RDW 20.2 H (11.5-14.5) % Plt Count 108 L (120.0-450.0) 10^3/uL MPV 11.7 H (7.0-11.0) fl Neutrophils % (Manual) (50.0-70.0) % Band Neutrophils % (0-2) % Lymphocytes % (Manual) (22.0-35.0) % Monocytes % (Manual) (1.0-6.0) % Nucleated RBC % % Platelet Evaluation (NORMAL) Large Platelets Hypochromasia Basophilic Stippling Anisocytosis (manual) Macrocytosis (manual) PT 14.0 H (9.4-12.5) SECONDS INR 1.26 APTT 30.5 (26.9-38.3) Seconds pCO2 (35-45) mm/Hg pO2 (80-100) mm/Hg HCO3 (21-28) mmol/L ABG pH (7.35-7.45) ABG Total CO2 (22-28) mmol.L ABG O2 Saturation (95-98) % ABG Base Excess (-2.0-3.0) mmol/L ABG Hemoglobin (11.7-17.4) g/dL ABG Carboxyhemoglobin (0.5-1.5) % POC ABG HHb (Measured) (0-5) % ABG Methemoglobin (0.0-3.0) % Hgb O2 Saturation (95.0-98.0) % Sodium 154 H (132-148) mmol/L Potassium 5.1 H (3.6-5.0) mmol/L Chloride 115 H (98-107) mmol/L Carbon Dioxide 40 H (21-33) mmol/L Anion Gap 4 L (10-20) BUN 62 H (7-21) mg/dL Creatinine 1.0 (0.8-1.5) mg/dl Est GFR ( Amer) > 60 Est GFR (Non-Af Amer) > 60 Random Glucose 282 H (70-110) mg/dL Calcium 8.4 (8.4-10.5) mg/dL Total Bilirubin (0.2-1.3) mg/dL AST (17-59) U/L ALT (7-56) U/L Alkaline Phosphatase (38-126) U/L Total Protein (5.8-8.3) g/dL Albumin (3.0-4.8) g/dL Globulin gm/dL Albumin/Globulin Ratio (1.1-1.8) 05/15/18 Range/Units 17:51 WBC (4.5-11.0) 10^3/uL RBC (3.5-6.1) 10^6/uL Hgb (14.0-18.0) g/dL Hct (42.0-52.0) % MCV (80.0-105.0) fl MCH (25.0-35.0) pg MCHC (31.0-37.0) g/dl RDW (11.5-14.5) % Plt Count (120.0-450.0) 10^3/uL MPV (7.0-11.0) fl Neutrophils % (Manual) (50.0-70.0) % Band Neutrophils % (0-2) % Lymphocytes % (Manual) (22.0-35.0) % Monocytes % (Manual) (1.0-6.0) % Nucleated RBC % % Platelet Evaluation (NORMAL) Large Platelets Hypochromasia Basophilic Stippling Anisocytosis (manual) Macrocytosis (manual) PT (9.4-12.5) SECONDS INR APTT (26.9-38.3) Seconds pCO2 (35-45) mm/Hg pO2 (80-100) mm/Hg HCO3 (21-28) mmol/L ABG pH (7.35-7.45) ABG Total CO2 (22-28) mmol.L ABG O2 Saturation (95-98) % ABG Base Excess (-2.0-3.0) mmol/L ABG Hemoglobin (11.7-17.4) g/dL ABG Carboxyhemoglobin (0.5-1.5) % POC ABG HHb (Measured) (0-5) % ABG Methemoglobin (0.0-3.0) % Hgb O2 Saturation (95.0-98.0) % Sodium 155 H (132-148) mmol/L Potassium 4.8 (3.6-5.0) mmol/L Chloride 116 H (98-107) mmol/L Carbon Dioxide 40 H (21-33) mmol/L Anion Gap 4 L (10-20) BUN 59 H (7-21) mg/dL Creatinine 1.0 (0.8-1.5) mg/dl Est GFR ( Amer) > 60 Est GFR (Non-Af Amer) > 60 Random Glucose 182 H (70-110) mg/dL Calcium 8.3 L (8.4-10.5) mg/dL Total Bilirubin (0.2-1.3) mg/dL AST (17-59) U/L ALT (7-56) U/L Alkaline Phosphatase (38-126) U/L Total Protein (5.8-8.3) g/dL Albumin (3.0-4.8) g/dL Globulin gm/dL Albumin/Globulin Ratio (1.1-1.8) Laboratory Results - last 24 hr 05/15/18 05/15/18 05/15/18 17:51 20:43 20:43 WBC 20.5 H D RBC 2.65 L Hgb 7.7 L Hct 27.5 L MCV 103.8 MCH 29.1 MCHC 28.0 L RDW 20.2 H Plt Count 108 L MPV 11.7 H Neutrophils % (Manual) Band Neutrophils % Lymphocytes % (Manual) Monocytes % (Manual) Nucleated RBC % Platelet Evaluation Large Platelets Hypochromasia Basophilic Stippling Anisocytosis (manual) Macrocytosis (manual) PT 14.0 H INR 1.26 APTT 30.5 pCO2 pO2 HCO3 ABG pH ABG Total CO2 ABG O2 Saturation ABG Base Excess ABG Hemoglobin ABG Carboxyhemoglobin POC ABG HHb (Measured) ABG Methemoglobin Hgb O2 Saturation Sodium 155 H Potassium 4.8 Chloride 116 H Carbon Dioxide 40 H Anion Gap 4 L BUN 59 H Creatinine 1.0 Est GFR ( Amer) > 60 Est GFR (Non-Af Amer) > 60 Random Glucose 182 H Calcium 8.3 L Total Bilirubin AST ALT Alkaline Phosphatase Total Protein Albumin Globulin Albumin/Globulin Ratio 05/15/18 05/16/18 05/16/18 20:43 06:30 06:30 WBC 16.6 H RBC 2.54 L Hgb 7.3 L Hct 26.2 L MCV 103.1 MCH 28.7 MCHC 27.9 L RDW 20.3 H Plt Count 99 L MPV 12.3 H Neutrophils % (Manual) 93 H Band Neutrophils % 3 H Lymphocytes % (Manual) 1 L Monocytes % (Manual) 3 Nucleated RBC % 3 Platelet Evaluation Low Large Platelets Present Hypochromasia Slight Basophilic Stippling Slight Anisocytosis (manual) 1+ Macrocytosis (manual) 1+ PT INR APTT pCO2 pO2 HCO3 ABG pH ABG Total CO2 ABG O2 Saturation ABG Base Excess ABG Hemoglobin ABG Carboxyhemoglobin POC ABG HHb (Measured) ABG Methemoglobin Hgb O2 Saturation Sodium 154 H 157 H* Potassium 5.1 H 4.8 Chloride 115 H 119 H Carbon Dioxide 40 H 42 H Anion Gap 4 L 1 L BUN 62 H 64 H Creatinine 1.0 1.1 Est GFR ( Amer) > 60 > 60 Est GFR (Non-Af Amer) > 60 > 60 Random Glucose 282 H 142 H Calcium 8.4 8.1 L Total Bilirubin 0.5 AST 37 ALT 201 H Alkaline Phosphatase 173 H D Total Protein 4.8 L Albumin 2.7 L Globulin 2.1 Albumin/Globulin Ratio 1.2 05/16/18 06:45 WBC RBC Hgb Hct MCV MCH MCHC RDW Plt Count MPV Neutrophils % (Manual) Band Neutrophils % Lymphocytes % (Manual) Monocytes % (Manual) Nucleated RBC % Platelet Evaluation Large Platelets Hypochromasia Basophilic Stippling Anisocytosis (manual) Macrocytosis (manual) PT INR APTT pCO2 72 H* pO2 102.0 H HCO3 40.7 H* ABG pH 7.36 ABG Total CO2 42.9 H ABG O2 Saturation 99.7 H ABG Base Excess 13.6 H ABG Hemoglobin 7.5 L ABG Carboxyhemoglobin 3.0 H POC ABG HHb (Measured) 0.3 ABG Methemoglobin 1.0 Hgb O2 Saturation 95.6 Sodium Potassium Chloride Carbon Dioxide Anion Gap BUN Creatinine Est GFR ( Amer) Est GFR (Non-Af Amer) Random Glucose Calcium Total Bilirubin AST ALT Alkaline Phosphatase Total Protein Albumin Globulin Albumin/Globulin Ratio Radiology Impressions: Radiology Impressions Chest X-Ray 05/15/18 20:15 IMPRESSION: No significant interval change compared to the prior examination(s). Chest X-Ray 05/15/18 22:17 IMPRESSION: Stable bilateral mixed alveolar and interstitial infiltrates with trace bilateral pleural effusions difficult to completely exclude. Adequate adjustment of endotracheal tube. Chest X-Ray 05/16/18 07:00 IMPRESSION: Stable mixed interstitial/alveolar infiltrates bilaterally without interval improvement appreciable. No significant interval change bilaterally. Critical Care Progress Note - Nutrition Nutrition: Nutrition Category Date Time Status NPO Diet [DIET] Diets 05/06/18 Breakfast Ordered Attending/Attestation - Attestation I have personally seen and examined this patient.: Yes I have fully participated in the care of the patient.: Yes I have reviewed all pertinent clinical information: Yes Notes (Text): 05/16/18 18:11 77 yo with hypoxemic and vent dependent respiratory failure. HOB>35, oral hygiene, protective lung vent strategy, sedation vacation and weaning trials when hypoxemia improved. On precedex and fentanyl, cardizem drip and dig for HR control. abx for potential pneumonia. dvt/gi prophylaxis. GI-toelrates feeds well. mental status still not recovering. eeg- no seziures, CTH-no acute intracranial pathology. ccm time 40 min
--- NOTE | 2018-05-16 14:44 | RAD ---
Date of service: 05/15/2018 HISTORY: Hemoptysis COMPARISON: Multiple serial examinations preceding the most recent study: May 15, 2018. FINDINGS: LUNGS: Stable interstitial findings bilaterally. PLEURA: No significant pleural effusion identified, no pneumothorax apparent. CARDIOVASCULAR: Atherosclerotic calcifications identified primarily aortic arch. No change in cardiac configuration OSSEOUS STRUCTURES: No significant abnormalities. VISUALIZED UPPER ABDOMEN: Normal. OTHER FINDINGS: Stable, satisfactory position ventilatory, vascular and nasogastric apparatus. IMPRESSION: No significant interval change compared to the prior examination(s).
--- NOTE | 2018-05-16 15:09 | PN ---
DATE: 05/16/2018 PULMONARY CRITICAL CARE PROGRESS NOTE REFERRING PHYSICIAN: Erasmo Briggs MD SUBJECTIVE: The patient remains on ventilator, intubated and sedated, afebrile overnight. OBJECTIVE: GENERAL: Intubated and sedated. VITAL SIGNS: Blood pressure 125/72, pulse noted during exam 91, oxygen saturation 100%, and temperature 99. HEENT: Moist mucous membranes. NECK: Supple. No JVD. RESPIRATORY: Decreased breath sounds; occasionally breathing over the vent. CARDIOVASCULAR: Tachycardiac. ABDOMEN: Soft. No distention. EXTREMITIES: +2 bilateral lower extremity edema. NEUROLOGIC: Intubated and sedated. MEDICATIONS: Reviewed. Tylenol 650 mg rectally every 6 hours p.r.n. for fever greater than 100.4, aspirin 81 mg daily, Pulmicort 0.5 mg every 12 hours, Precedex 400 mcg in 100 mL at 3.357 mL per hour p.r.n., Cardizem 60 mg three times a day, Cardizem 100 mg at 10 mL per hour p.r.n., fentanyl 1000 mcg in 100 mL every 24 hours p.r.n., Dilaudid 0.5 mg IV push every 4 hours p.r.n., Humalog sliding scale before meals and at bedtime, Xopenex 0.63 mg inhalation every 6 hours p.r.n., Xopenex 0.63 mg inhalation three times a day, meropenem 1 g every 8 hours, Solu-Medrol 40 mg every 12 hours, micafungin 100 mg daily, Levophed 4 mg in 250 mL at 15 mL per hour p.r.n., Protonix 40 mg IV push daily, sotalol 40 mg twice a day, vancomycin 1 g every 12 hours, verapamil 2.5 mg every 6 hours p.r.n., and verapamil 40 mg three times a day. LABORATORY DATA: Reviewed. WBC 16.6, RBC 2.54, hemoglobin 10.3, hematocrit 26.2, and platelets 99. PCO2 of 72, pO2 of 102, HCO3 of 40.7, and ABG pH 7.36. Sodium 157, potassium 4.8, chloride 119, carbon dioxide 42, anion gap 1, BUN 64, creatinine 1.1, GFR is greater than 60, random glucose 142, calcium 8.1, total bilirubin 0.5, AST 37, ALT 201, alkaline phosphatase 173, total protein 4.8, albumin 2.7, globulin 2.1, and albumin-globulin ratio 1.2. Chest x-ray shows stable mixed interstitial alveolar infiltrates bilaterally without interval improvement appreciable; no significant interval change bilaterally. IMPRESSION AND PLAN: Deteriorating lung condition, requiring increased oxygen requirement, unable to ventilate probably been with high FIO2; multiorgan dysfunction; acute lung injury unknown cause, could be healthcare-associated pneumonia; chemotherapy-induced pneumonitis; unresectable small cell lung cancer; chronic obstructive lung disease; paroxysmal atrial fibrillation; respiratory failure on ventilator; cardiac infarction, failure to thrive; sepsis and renal failure. Dr. Yi spoke with Dr. Bullard and discussed patient's current condition, recommending that patient at this time is palliative care/hospice appropriate. Continue steroids, inhaled bronchodilators, antibiotic therapy. Palliative care to speak with family today regarding further treatment. Continue Cardiology followup. We will repeat chest x-ray, labs, and ABGs in the morning. Critical care time spent more than 35 minutes. The patient was seen and examined with Dr. Yi. Discussed assessment and plan as described above. Thank you for this consult. We will follow with you. Juan Carlos Paul APN Aura Yi MD RODRICK
--- NOTE | 2018-05-16 15:33 | CP.PCM.PN ---
Subjective - Date & Time of Evaluation Date of Evaluation: 05/16/18 Time of Evaluation: 15:00 - Subjective Subjective: Continues to be on the ventilator, no fevers. Objective - Vital Signs/Intake and Output Vital Signs (last 24 hours): Temp Pulse Resp BP Pulse Ox 99.1 F 110 H 26 H 138/77 96 05/15/18 04:00 05/15/18 10:00 05/15/18 08:01 05/15/18 10:00 05/15/18 08:01 Intake and Output: 05/15/18 05/15/18 06:59 18:59 Intake Total 1986 0 Output Total 1300 Balance 686 0 - Medications Medications: Current Medications Acetaminophen (Tylenol 650 Mg Supp) 650 mg RC Q6H PRN PRN Reason: Fever >100.4 F Last Admin: 05/10/18 20:55 Dose: 650 mg Acetaminophen (Tylenol 650mg/20.3ml Solution Ud) 650 mg NG Q6H PRN PRN Reason: FEVER > 100.4 Last Admin: 05/14/18 09:29 Dose: 650 mg Albumin Human (Albumin Human 25% (12.5 Gm/50 Ml)) 12.5 gm IV Q6H [facility] Last Admin: 05/15/18 09:00 Dose: 12.5 gm Aspirin (Aspirin Chewable) 81 mg PO DAILY [facility] Last Admin: 05/15/18 09:40 Dose: 81 mg Budesonide (Pulmicort Respules) 0.5 mg IH [id number] [facility] Last Admin: 05/15/18 07:57 Dose: 0.5 mg Dextrose (Dextrose 50% Inj) 0 ml IV STAT PRN; Protocol PRN Reason: Hypoglycemia Protocol Diltiazem HCl (Cardizem Cd) 120 mg PO DAILY [facility] Last Admin: 05/07/18 11:16 Dose: Not Given Diltiazem HCl (Cardizem) 60 mg PO TID [facility] Last Admin: 05/15/18 10:00 Dose: Not Given Hydromorphone HCl (Dilaudid) 0.5 mg IVP Q4H PRN PRN Reason: Pain, severe (8-10) Last Admin: 05/15/18 05:23 Dose: 0.5 mg Meropenem (Merrem Iv 1 Gm Premix) 1 gm in 50 mls @ 100 mls/hr IVPB Q8 [facility]; Protocol Last Admin: 05/15/18 06:06 Dose: 100 mls/hr Vancomycin HCl (Vancomycin 1gm) 1 gm in 250 mls @ 167 mls/hr IVPB Q12H [facility]; Protocol Last Admin: 05/15/18 02:35 Dose: 167 mls/hr Dexmedetomidine HCl (Precedex 400mcg/100ml) 400 mcg in 100 mls @ 3.357 mls/hr IV .Q24H PRN; Protocol PRN Reason: Sedation Last Admin: 05/15/18 01:43 Dose: 0.7 mcg/kg/hr, 11.748 mls/hr Dextrose (Dextrose 5% In Water 1000 Ml) 1,000 mls @ 0 mls/hr IV .Q0M PRN; Protocol PRN Reason: Hypoglycemia Protocol Micafungin Sodium 100 mg/ (Sodium Chloride) 100 mls @ 100 mls/hr IV DAILY [facility]; Protocol Stop: 05/17/18 13:16 Last Admin: 05/15/18 09:40 Dose: 100 mls/hr diltiaZEM IVPB 100mg in NS (Cardizem 100mg In Ns) 100 mls @ 10 mls/hr IV .Q10H PRN; Protocol PRN Reason: TITRATE PER MD ORDER Last Titration: 05/15/18 08:00 Dose: 5 mg/hr, 5 mls/hr NOREPINEPHRINE BIT/0.9 % NACL (Levophed 4 Mg/ 250 Ml Ns Premixed) 4 mg in 250 mls @ 15 mls/hr IV .[id number] PRN; Protocol PRN Reason: TITRATE PER MD ORDER Last Titration: 05/13/18 12:00 Dose: 0 mcg/min, 0 mls/hr Fentanyl Citrate (Fentanyl Citrate/Sodium Chloride 1 Mg/100 Ml) 1,000 mcg in 1 00 mls @ 2 mls/hr IV .Q24H PRN; Protocol PRN Reason: TITRATE PER MD ORDER Last Admin: 05/15/18 09:49 Dose: 20 mcg/hr, 2 mls/hr Insulin Human Lispro (Humalog High) 0 units SC ACHS [facility]; Protocol Last Admin: 05/15/18 08:44 Dose: 10 u Levalbuterol HCl (Xopenex) 0.63 mg IH [id number] PRN PRN Reason: Shortness of Breath Last Admin: 05/15/18 02:05 Dose: 0.63 mg Levalbuterol HCl (Xopenex) 0.63 mg IH TIDRESP [facility] Last Admin: 05/15/18 07:57 Dose: 0.63 mg Methylprednisolone (Solu-Medrol) 60 mg IVP Q6H [facility] Last Admin: 05/15/18 09:36 Dose: 60 mg Pantoprazole Sodium (Protonix Ec Tab) 40 mg PO 0600 [facility] Last Admin: 05/08/18 05:00 Dose: 40 mg Pantoprazole Sodium (Protonix Inj) 40 mg IVP DAILY [facility] Last Admin: 05/14/18 10:54 Dose: 40 mg Sotalol HCl (Betapace) 40 mg PO BID [facility] Last Admin: 05/11/18 09:16 Dose: Not Given Verapamil HCl (Calan Tab) 40 mg PO TID [facility] Last Admin: 05/11/18 09:16 Dose: Not Given Verapamil HCl (Verapamil Inj) 2.5 mg IVP Q6 PRN PRN Reason: FOR HR GREATER THAN 130 Last Admin: 05/15/18 04:01 Dose: 2.5 mg - Labs Labs: 05/15/18 05:40 05/15/18 06:30 PT 25.7 SECONDS (9.4-12.5) H 05/07/18 06:30 INR 2.20 05/07/18 06:30 APTT 25.5 Seconds (25.1-36.5) 05/07/18 06:30 - Constitutional Appears: In Acute Distress, Chronically Ill, Other (intubated) - ENT Exam Additional comments: ET tube in place - Respiratory Exam Respiratory Exam: Decreased Breath Sounds - Cardiovascular Exam Cardiovascular Exam: +S1, +S2 - GI/Abdominal Exam GI & Abdominal Exam: Soft. absent: Tenderness Assessment and Plan - Assessment and Plan (Free Text) Plan: Assessment hypoxic respiratory failure, with VDRF, with SIRS, R/O severe sepsis from hospital-acquired pneumonia on top of worsening lung cancer; new onset fever R/O Influenza S/P sepsis due to multifocal HCAP in this patient with stage 4 lung cancer, S/P confusion consider toxic-metabolic encephalopathy small cell lung cancer stage 4 on radiation and chemotherapy COPD atrial fibrillation gastritis Plan continue Vancomycin and Merrem day 111, added Mycamine - completed course of Tamiflu (5 days); repeat blood cx are negative - will consider discontinuing antibiotics in the next 24-48 hours patient's prognosis is poor
[2018-05-16] MEDS: Fentanyl 1000mcg/100ml NS 1,000 MCG/100 ML BAG IV PRN (15:55)
--- NOTE | 2018-05-16 17:05 | CP.PCM.PN ---
Subjective - Date & Time of Evaluation Date of Evaluation: 05/16/18 Time of Evaluation: 17:00 - Subjective Subjective: Intubated, sedated. No acute changes Objective - Vital Signs/Intake and Output Vital Signs (last 24 hours): Temp Pulse Resp BP Pulse Ox 98.5 F 95 H 21 123/54 L 99 05/16/18 04:00 05/16/18 15:29 05/16/18 07:03 05/16/18 15:29 05/16/18 07:03 Intake and Output: 05/16/18 05/16/18 06:59 18:59 Intake Total 1818 162 Output Total 1050 Balance 768 162 - Medications Medications: Current Medications Acetaminophen (Tylenol 650 Mg Supp) 650 mg RC Q6H PRN PRN Reason: Fever >100.4 F Last Admin: 05/10/18 20:55 Dose: 650 mg Acetaminophen (Tylenol 650mg/20.3ml Solution Ud) 650 mg NG Q6H PRN PRN Reason: FEVER > 100.4 Last Admin: 05/14/18 09:29 Dose: 650 mg Aspirin (Aspirin Chewable) 81 mg PO DAILY [facility] Last Admin: 05/16/18 09:37 Dose: 81 mg Budesonide (Pulmicort Respules) 0.5 mg IH [id number] [facility] Last Admin: 05/16/18 07:01 Dose: 0.5 mg Dextrose (Dextrose 50% Inj) 0 ml IV STAT PRN; Protocol PRN Reason: Hypoglycemia Protocol Diltiazem HCl (Cardizem Cd) 120 mg PO DAILY [facility] Last Admin: 05/07/18 11:16 Dose: Not Given Diltiazem HCl (Cardizem) 60 mg PO TID [facility] Last Admin: 05/16/18 15:29 Dose: 60 mg Hydromorphone HCl (Dilaudid) 0.5 mg IVP Q4H PRN PRN Reason: Pain, severe (8-10) Last Admin: 05/15/18 05:23 Dose: 0.5 mg Meropenem (Merrem Iv 1 Gm Premix) 1 gm in 50 mls @ 100 mls/hr IVPB Q8 [facility]; Protocol Last Admin: 05/16/18 05:17 Dose: 100 mls/hr Vancomycin HCl (Vancomycin 1gm) 1 gm in 250 mls @ 167 mls/hr IVPB Q12H [facility]; Protocol Last Admin: 05/16/18 15:49 Dose: 167 mls/hr Dexmedetomidine HCl (Precedex 400mcg/100ml) 400 mcg in 100 mls @ 3.357 mls/hr IV .Q24H PRN; Protocol PRN Reason: Sedation Last Admin: 05/16/18 15:52 Dose: 0.8 mcg/kg/hr, 13.426 mls/hr Dextrose (Dextrose 5% In Water 1000 Ml) 1,000 mls @ 0 mls/hr IV .Q0M PRN; Pr otocol PRN Reason: Hypoglycemia Protocol Micafungin Sodium 100 mg/ (Sodium Chloride) 100 mls @ 100 mls/hr IV DAILY [facility]; Protocol Stop: 05/17/18 13:16 Last Admin: 05/16/18 09:53 Dose: 100 mls/hr diltiaZEM IVPB 100mg in NS (Cardizem 100mg In Ns) 100 mls @ 10 mls/hr IV .Q10H PRN; Protocol PRN Reason: TITRATE PER MD ORDER Last Titration: 05/15/18 09:00 Dose: 0 mg/hr, 0 mls/hr NOREPINEPHRINE BIT/0.9 % NACL (Levophed 4 Mg/ 250 Ml Ns Premixed) 4 mg in 250 mls @ 15 mls/hr IV .[id number] PRN; Protocol PRN Reason: TITRATE PER MD ORDER Last Titration: 05/13/18 12:00 Dose: 0 mcg/min, 0 mls/hr Fentanyl Citrate (Fentanyl Citrate/Sodium Chloride 1 Mg/100 Ml) 1,000 mcg in 100 mls @ 2 mls/hr IV .Q24H PRN; Protocol PRN Reason: TITRATE PER MD ORDER Last Admin: 05/16/18 15:55 Dose: 20 mcg/hr, 2 mls/hr Insulin Human Lispro (Humalog High) 0 units SC ACHS [facility]; Protocol Last Admin: 05/16/18 12:13 Dose: 10 u Levalbuterol HCl (Xopenex) 0.63 mg IH [id number] PRN PRN Reason: Shortness of Breath Last Admin: 05/15/18 02:05 Dose: 0.63 mg Levalbuterol HCl (Xopenex) 0.63 mg IH TIDRESP [facility] Last Admin: 05/16/18 13:51 Dose: 0.63 mg Methylprednisolone (Solu-Medrol) 40 mg IVP Q12 [facility] Last Admin: 05/16/18 09:47 Dose: 40 mg Pantoprazole Sodium (Protonix Inj) 40 mg IVP DAILY [facility] Last Admin: 05/16/18 09:52 Dose: 40 mg Sotalol HCl (Betapace) 40 mg PO BID [facility] Last Admin: 05/11/18 09:16 Dose: Not Given Verapamil HCl (Calan Tab) 40 mg PO TID [facility] Last Admin: 05/11/18 09:16 Dose: Not Given Verapamil HCl (Verapamil Inj) 2.5 mg IVP Q6 PRN PRN Reason: FOR HR GREATER THAN 130 Last Admin: 05/16/18 09:51 Dose: 2.5 mg - Labs Labs: 05/16/18 06:30 05/16/18 06:30 PT 14.0 SECONDS (9.4-12.5) H 05/15/18 20:43 INR 1.26 05/15/18 20:43 APTT 30.5 Seconds (26.9-38.3) 05/15/18 20:43 - Constitutional Appears: Chronically Ill - Eye Exam Eye Exam: PERRL - Respiratory Exam Respiratory Exam: Decreased Breath Sounds - Cardiovascular Exam Cardiovascular Exam: Irregular Rhythm, +S1, +S2 - GI/Abdominal Exam GI & Abdominal Exam: Soft, Normal Bowel Sounds - Skin Skin Exam: Dry, Warm Assessment and Plan - Assessment and Plan (Free Text) Assessment: 77 year old male with history Small Cell lung cancer, A Fib who is admitted with [place],sepsis, respiratory failure s/p intubation. I met with patients family. Family to make decision regarding LTAC vs terminal extubation in three days. As per family, the patient is to remain full code. Family also met with for information regarding LTAC placement. Time spent with family in goals of care discussion, 20 minutes Plan: Goals of care Continue ventilator support, maintain 02 sat >95%, nebulizers, steroids as ordered Continue Verpamil, Cardizem,Norepinephrine, ASA
[2018-05-16] MEDS: HYDROmorphone 0.5 mg/0.5 ml ISec IVP PRN (21:52)
[2018-05-16] MEDS: diltiaZEM IVPB 100mg in NS 100 ML IV PRN (22:10)
[2018-05-17] MEDS: Dexmedetomidine 400mcg/100mL 400 MCG/100 ML BOTTLE IV PRN ×2 (01:07→17:18)
[2018-05-17] MEDS: HYDROmorphone 0.5 mg/0.5 ml ISec IVP PRN ×3 (02:19→22:21)
[2018-05-17] MEDS: Vancomycin 1gm in NS 250ml 1 GM/250 ML BAG IVPB SCH (02:20)
[2018-05-17] MEDS: Meropenem IV 1 gm in NS 1 GM/50 ML BAG IVPB SCH ×3 (05:54→22:12)
[2018-05-17 06:10] LABS: ARTERIAL BLOOD GAS HCO3 33.3 mmol/L (21-28); ARTERIAL BLOOD GAS HEMOGLOBIN 7.2 g/dL (11.7-17.4); ARTERIAL BLOOD GAS O2 CONTENT 9.9 ML/dl (15-23); ARTERIAL BLOOD GAS O2 SAT 99.3 % (95-98); ARTERIAL BLOOD GAS PCO2 55 mm/Hg (35-45); ARTERIAL BLOOD GAS PH 7.39 (7.35-7.45)
--- NOTE | 2018-05-17 07:38 | RAD ---
Date of service: 05/17/2018 HISTORY: ventilator COMPARISON: Portable chest 05/16/2018. FINDINGS: LUNGS: Endotracheal and nasogastric tubes do not appear significantly changed in position. MediPort stable as well. Diffuse interstitial infiltrates are reiterated with underlying probable alveolitis diminished at the right perihilar region unchanged at the left retrocardiac base. PLEURA: Minimal right pleural effusion identified. Borderline left pleural effusion. No pneumothorax bilaterally. CARDIOVASCULAR: No aortic atherosclerotic calcification present. Normal cardiac size. No pulmonary vascular congestion. OSSEOUS STRUCTURES: No significant abnormalities. VISUALIZED UPPER ABDOMEN: Normal. OTHER FINDINGS: None. IMPRESSION: Slight improvement in right perihilar probable airspace disease with chronic interstitial pulmonary changes again noted diffusely. Left basilar patchy density unchanged. No pulmonary vascular congestion. Trace right pleural effusion questioned, borderline left costophrenic sulcus.
[2018-05-17] MEDS: Budesonide 0.5 mg/2 ml Inhal Susp UD IH SCH ×2 (07:39→19:59)
[2018-05-17] MEDS: Levalbuterol 0.63 MG/3 ML Inhal Soln UD IH SCH ×3 (07:40→19:59)
[2018-05-17 08:13] LABS: BASO # 0.03 K/mm3 (0.0-2.0); BASO % 0.1 % (0.0-3.0); HEMOGLOBIN 7.8 g/dL (14.0-18.0); LYMPH # 1.1 (1.2-3.4); LYMPH % 4.9 % (22.0-35.0); MEAN CELL VOLUME 104.5 fl (80.0-105.0); MEAN CORPUSCULAR HEMOGLOBIN 29.3 pg (25.0-35.0); MEAN CORPUSCULAR HGB CONC 28.1 g/dl (31.0-37.0); MONO # 0.3 (0.1-0.6); MONO % 1.2 % (1.0-6.0); RBC 2.66 10^6/uL (3.5-6.1); RED CELL DISTRIBUTION WIDTH 21.2 % (11.5-14.5); WHITE BLOOD COUNT 22.1 10^3/uL (4.5-11.0)
[2018-05-17 08:30] LABS: ALB/GLOB RATIO 1.1 (1.1-1.8); ALBUMIN 2.5 g/dL (3.0-4.8); ALT/SGPT 156 U/L (7-56); AST/SGOT 40 U/L (17-59); BLOOD UREA NITROGEN 72 mg/dL (7-21); CALCIUM 8.1 mg/dL (8.4-10.5); GFR NON-AFRICAN AMERICAN 59
[2018-05-17] MEDS: Insulin Lispro (HUMAlog) HIGH Coverage SC SCH ×3 (08:33→17:49)
--- NOTE | 2018-05-17 10:19 | CP.CCUPN ---
<Haley Mckeon - Last Filed: 05/17/18 14:23> CCU Subjective - Physician Review Subjective (Free Text): Haley Mckeon, PGY-1, ICU Progress Note for Dr. Gtz Patient seen and evaluated at bedside. Patient had fluctuations of tachycardia and regular rhythm. Patient is currently intubated and sedated with vent settings of 450/18/12/100%. CCU Objective - Vital Signs / Intake & Output Vital Signs (Last 4 hours): Vital Signs Temp Pulse BP Pulse Ox 05/17/18 06:23 98.6 F 159 H 116/75 99 Intake and Output (Last 8hrs): Intake & Output 05/16/18 05/17/18 05/17/18 22:59 06:59 14:59 Intake Total 1732 100 Output Total 1100 Balance 632 100 Intake: IV 1012 100 Right Subclavian 890 Tube Feeding 720 Output: Urine 900 Urethral (Yang) 900 Stool 200 Emesis 0 Oral Regurgitation 0 Other 0 - Physical Exam Head: Positive for: Atraumatic, Normocephalic Pupils: Positive for: PERRL Extroacular Muscles: Positive for: EOMI Conjunctiva: Positive for: Normal Mouth: Positive for: Moist Mucous Membranes Neck: Positive for: Normal Range of Motion Respiratory/Chest: Positive for: Respiratory Distress, Wheezes, Rales, Other (currently on ventilator). Negative for: Accessory Muscle Use Cardiovascular: Positive for: Normal S1, S2, Irregular Rhythm. Negative for: Murmurs Abdomen: Negative for: Tenderness, Distention, Peritoneal Signs Back: Positive for: Normal Inspection Upper Extremity: Positive for: Normal Inspection. Negative for: Cyanosis, Edema Lower Extremity: Positive for: Normal Inspection. Negative for: Edema Neurological: Positive for: Other (intubated) Skin: Positive for: Warm, Dry, Normal Color, Other (R IJ central port noted). Negative for: Rashes Psychiatric: Positive for: Alert, Oriented x 3, Normal Insight, Normal Concentration - Medications Active Medications: Active Medications Generic Name Dose Route Start Last Admin Trade Name Freq PRN Reason Stop Dose Admin Acetaminophen 650 mg 05/10/18 20:29 05/10/18 20:55 Tylenol 650 Mg Supp RC 650 mg Q6H PRN Administration Fever >100.4 F Acetaminophen 650 mg 05/14/18 09:13 05/14/18 09:29 Tylenol 650mg/20.3ml Solution Ud NG 650 mg Q6H PRN Administration FEVER > 100.4 Aspirin 81 mg 05/12/18 11:30 05/16/18 09:37 Aspirin Chewable PO 81 mg DAILY ZARI Administration Budesonide 0.5 mg 04/27/18 20:00 05/17/18 07:39 Pulmicort Respules IH 0.5 mg [id number] ZARI Administration Dextrose 0 ml 05/09/18 10:48 Dextrose 50% Inj IV STAT PRN Hypoglycemia Protocol Protocol Diltiazem HCl 120 mg 04/27/18 10:00 05/07/18 11:16 Cardizem Cd PO Not Given DAILY ZARI Diltiazem HCl 60 mg 05/15/18 09:00 05/16/18 18:13 Cardizem PO 60 mg TID ZARI Administration Hydromorphone HCl 0.5 mg 05/13/18 00:26 05/17/18 05:53 Dilaudid IVP 0.5 mg Q4H PRN Administration Pain, severe (8-10) Meropenem 1 gm in 50 mls @ 100 mls/hr 05/05/18 15:15 05/17/18 05:54 Merrem Iv 1 Gm Premix IVPB 100 mls/hr Q8 ZARI Administration Protocol Dexmedetomidine HCl 400 mcg in 100 mls @ 3.357 mls/hr 05/09/18 10:31 05/17/18 01:07 Precedex 400mcg/100ml IV 0.8 mcg/kg/hr .Q24H PRN 13.426 mls/hr Sedation Administration Protocol 0.2 MCG/KG/HR Dextrose 1,000 mls @ 0 mls/hr 05/09/18 10:48 Dextrose 5% In Water 1000 Ml IV .Q0M PRN Hypoglycemia Protocol Protocol Per Protocol Micafungin Sodium 100 mg/ 100 mls @ 100 mls/hr 05/10/18 13:15 05/16/18 09:53 Sodium Chloride IV 05/17/18 13:16 100 mls/hr DAILY ZARI Administration Protocol diltiaZEM IVPB 100mg in NS 100 mls @ 10 mls/hr 05/11/18 08:12 05/16/18 22:10 Cardizem 100mg In Ns IV 5 mg/hr .Q10H PRN 5 mls/hr TITRATE PER MD ORDER Administration Protocol 10 MG/HR NOREPINEPHRINE BIT/0.9 % NACL 4 mg in 250 mls @ 15 mls/hr 05/12/18 19:49 05/13/18 12:00 Levophed 4 Mg/ 250 Ml Ns Premixed IV 0 mcg/min .[id number] PRN 0 mls/hr TITRATE PER MD ORDER Titration Protocol 4 MCG/MIN Fentanyl Citrate 1,000 mcg in 100 mls @ 2 mls/hr 05/14/18 16:24 05/16/18 22:11 Fentanyl Citrate/Sodium Chloride 1 Mg/100 Ml IV 50 mcg/hr .Q24H PRN 5 mls/hr TITRATE PER MD ORDER Titration Protocol 20 MCG/HR Insulin Human Lispro 0 units 05/09/18 11:30 05/17/18 08:33 Humalog High SC 10 u ACHS ZARI Administration Protocol Levalbuterol HCl 0.63 mg 04/27/18 12:16 05/15/18 02:05 Xopenex IH 0.63 mg [id number] PRN Administration Shortness of Breath Levalbuterol HCl 0.63 mg 04/28/18 20:00 05/17/18 07:40 Xopenex IH 0.63 mg TIDRESP ZARI Administration Methylprednisolone 40 mg 05/15/18 22:00 05/16/18 21:53 Solu-Medrol IVP 40 mg Q12 ZARI Administration Pantoprazole Sodium 40 mg 05/09/18 10:00 05/16/18 09:52 Protonix Inj IVP 40 mg DAILY ZARI Administration Sotalol HCl 40 mg 05/09/18 10:00 05/11/18 09:16 Betapace PO Not Given BID ZARI Verapamil HCl 40 mg 05/10/18 14:00 05/11/18 09:16 Calan Tab PO Not Given TID ZARI Verapamil HCl 2.5 mg 05/10/18 12:31 05/17/18 05:53 Verapamil Inj IVP 2.5 mg Q6 PRN Administration FOR HR GREATER THAN 130 - Patient Studies Lab Studies: Microbiology Studies 05/13/18 10:05 Blood Culture - Preliminary Blood NO GROWTH AFTER 4 DAYS 05/13/18 09:25 Blood Culture - Preliminary Blood NO GROWTH AFTER 4 DAYS 05/14/18 07:45 Gram Stain - Final Trachasp Sputum Culture - Final NORMAL ORAL ALFIE Lab Studies 05/17/18 05/17/18 05/17/18 Range/Units 08:00 08:00 06:00 WBC 22.1 H D (4.5-11.0) 10^3/uL RBC 2.66 L (3.5-6.1) 10^6/uL Hgb 7.8 L (14.0-18.0) g/dL Hct 27.8 L (42.0-52.0) % MCV 104.5 (80.0-105.0) fl MCH 29.3 (25.0-35.0) pg MCHC 28.1 L (31.0-37.0) g/dl RDW 21.2 H (11.5-14.5) % Plt Count 104 L (120.0-450.0) 10^3/uL MPV 13.0 H (7.0-11.0) fl Neut % (Auto) 93.8 H (50.0-68.0) % Lymph % (Auto) 4.9 L (22.0-35.0) % Carson % (Auto) 1.2 (1.0-6.0) % Eos % (Auto) 0.0 L (1.5-5.0) % Baso % (Auto) 0.1 (0.0-3.0) % Lymph # (Auto) 1.1 L (1.2-3.4) Carson # (Auto) 0.3 (0.1-0.6) Eos # (Auto) 0.0 (0.0-0.7) Baso # (Auto) 0.03 (0.0-2.0) K/mm3 Absolute Neuts (auto) 20.72 H (1.4-6.5) pCO2 55 H (35-45) mm/Hg pO2 91.0 (80-100) mm/Hg HCO3 33.3 H (21-28) mmol/L ABG pH 7.39 (7.35-7.45) ABG Total CO2 35.0 H (22-28) mmol.L ABG O2 Saturation 99.3 H (95-98) % ABG O2 Content 9.9 L (15-23) ML/dl ABG Base Excess 7.5 H (-2.0-3.0) mmol/L ABG Hemoglobin 7.2 L (11.7-17.4) g/dL ABG Carboxyhemoglobin 2.7 H (0.5-1.5) % POC ABG HHb (Measured) 0.7 (0-5) % ABG Methemoglobin 0.7 (0.0-3.0) % ABG O2 Capacity 10.0 L (16-24) mL/dl Hgb O2 Saturation 95.9 (95.0-98.0) % FiO2 100.0 % Sodium 161 H* (132-148) mmol/L Potassium 4.9 (3.6-5.0) mmol/L Chloride 122 H (98-107) mmol/L Carbon Dioxide 40 H (21-33) mmol/L Anion Gap 4 L (10-20) BUN 72 H (7-21) mg/dL Creatinine 1.2 (0.8-1.5) mg/dl Est GFR ( Amer) > 60 Est GFR (Non-Af Amer) 59 POC Glucose (mg/dL) (65-110) mg/dL Random Glucose 298 H (70-110) mg/dL Calcium 8.1 L (8.4-10.5) mg/dL Phosphorus (2.5-4.5) mg/dL Magnesium (1.7-2.2) mg/dL Total Bilirubin 0.9 (0.2-1.3) mg/dL AST 40 (17-59) U/L ALT 156 H (7-56) U/L Alkaline Phosphatase 165 H (38-126) U/L Total Protein 4.7 L (5.8-8.3) g/dL Albumin 2.5 L (3.0-4.8) g/dL Globulin 2.2 gm/dL Albumin/Globulin Ratio 1.1 (1.1-1.8) 05/17/18 05/16/18 05/16/18 Range/Units 05:00 21:06 15:59 WBC (4.5-11.0) 10^3/uL RBC (3.5-6.1) 10^6/uL Hgb (14.0-18.0) g/dL Hct (42.0-52.0) % MCV (80.0-105.0) fl MCH (25.0-35.0) pg MCHC (31.0-37.0) g/dl RDW (11.5-14.5) % Plt Count (120.0-450.0) 10^3/uL MPV (7.0-11.0) fl Neut % (Auto) (50.0-68.0) % Lymph % (Auto) (22.0-35.0) % Carson % (Auto) (1.0-6.0) % Eos % (Auto) (1.5-5.0) % Baso % (Auto) (0.0-3.0) % Lymph # (Auto) (1.2-3.4) Carson # (Auto) (0.1-0.6) Eos # (Auto) (0.0-0.7) Baso # (Auto) (0.0-2.0) K/mm3 Absolute Neuts (auto) (1.4-6.5) pCO2 (35-45) mm/Hg pO2 (80-100) mm/Hg HCO3 (21-28) mmol/L ABG pH (7.35-7.45) ABG Total CO2 (22-28) mmol.L ABG O2 Saturation (95-98) % ABG O2 Content (15-23) ML/dl ABG Base Excess (-2.0-3.0) mmol/L ABG Hemoglobin (11.7-17.4) g/dL ABG Carboxyhemoglobin (0.5-1.5) % POC ABG HHb (Measured) (0-5) % ABG Methemoglobin (0.0-3.0) % ABG O2 Capacity (16-24) mL/dl Hgb O2 Saturation (95.0-98.0) % FiO2 % Sodium (132-148) mmol/L Potassium (3.6-5.0) mmol/L Chloride (98-107) mmol/L Carbon Dioxide (21-33) mmol/L Anion Gap (10-20) BUN (7-21) mg/dL Creatinine (0.8-1.5) mg/dl Est GFR ( Amer) Est GFR (Non-Af Amer) POC Glucose (mg/dL) 239 H 293 H (65-110) mg/dL Random Glucose (70-110) mg/dL Calcium (8.4-10.5) mg/dL Phosphorus 4.4 (2.5-4.5) mg/dL Magnesium 2.9 H (1.7-2.2) mg/dL Total Bilirubin (0.2-1.3) mg/dL AST (17-59) U/L ALT (7-56) U/L Alkaline Phosphatase (38-126) U/L Total Protein (5.8-8.3) g/dL Albumin (3.0-4.8) g/dL Globulin gm/dL Albumin/Globulin Ratio (1.1-1.8) 05/16/18 05/16/18 05/15/18 Range/Units 11:15 07:15 21:36 WBC (4.5-11.0) 10^3/uL RBC (3.5-6.1) 10^6/uL Hgb (14.0-18.0) g/dL Hct (42.0-52.0) % MCV (80.0-105.0) fl MCH (25.0-35.0) pg MCHC (31.0-37.0) g/dl RDW (11.5-14.5) % Plt Count (120.0-450.0) 10^3/uL MPV (7.0-11.0) fl Neut % (Auto) (50.0-68.0) % Lymph % (Auto) (22.0-35.0) % Carson % (Auto) (1.0-6.0) % Eos % (Auto) (1.5-5.0) % Baso % (Auto) (0.0-3.0) % Lymph # (Auto) (1.2-3.4) Carson # (Auto) (0.1-0.6) Eos # (Auto) (0.0-0.7) Baso # (Auto) (0.0-2.0) K/mm3 Absolute Neuts (auto) (1.4-6.5) pCO2 (35-45) mm/Hg pO2 (80-100) mm/Hg HCO3 (21-28) mmol/L ABG pH (7.35-7.45) ABG Total CO2 (22-28) mmol.L ABG O2 Saturation (95-98) % ABG O2 Content (15-23) ML/dl ABG Base Excess (-2.0-3.0) mmol/L ABG Hemoglobin (11.7-17.4) g/dL ABG Carboxyhemoglobin (0.5-1.5) % POC ABG HHb (Measured) (0-5) % ABG Methemoglobin (0.0-3.0) % ABG O2 Capacity (16-24) mL/dl Hgb O2 Saturation (95.0-98.0) % FiO2 % Sodium (132-148) mmol/L Potassium (3.6-5.0) mmol/L Chloride (98-107) mmol/L Carbon Dioxide (21-33) mmol/L Anion Gap (10-20) BUN (7-21) mg/dL Creatinine (0.8-1.5) mg/dl Est GFR ( Amer) Est GFR (Non-Af Amer) POC Glucose (mg/dL) 304 H 142 H 321 H (65-110) mg/dL Random Glucose (70-110) mg/dL Calcium (8.4-10.5) mg/dL Phosphorus (2.5-4.5) mg/dL Magnesium (1.7-2.2) mg/dL Total Bilirubin (0.2-1.3) mg/dL AST (17-59) U/L ALT (7-56) U/L Alkaline Phosphatase (38-126) U/L Total Protein (5.8-8.3) g/dL Albumin (3.0-4.8) g/dL Globulin gm/dL Albumin/Globulin Ratio (1.1-1.8) 05/15/18 05/15/18 05/15/18 Range/Units 16:36 11:09 08:17 WBC (4.5-11.0) 10^3/uL RBC (3.5-6.1) 10^6/uL Hgb (14.0-18.0) g/dL Hct (42.0-52.0) % MCV (80.0-105.0) fl MCH (25.0-35.0) pg MCHC (31.0-37.0) g/dl RDW (11.5-14.5) % Plt Count (120.0-450.0) 10^3/uL MPV (7.0-11.0) fl Neut % (Auto) (50.0-68.0) % Lymph % (Auto) (22.0-35.0) % Carson % (Auto) (1.0-6.0) % Eos % (Auto) (1.5-5.0) % Baso % (Auto) (0.0-3.0) % Lymph # (Auto) (1.2-3.4) Carson # (Auto) (0.1-0.6) Eos # (Auto) (0.0-0.7) Baso # (Auto) (0.0-2.0) K/mm3 Absolute Neuts (auto) (1.4-6.5) pCO2 (35-45) mm/Hg pO2 (80-100) mm/Hg HCO3 (21-28) mmol/L ABG pH (7.35-7.45) ABG Total CO2 (22-28) mmol.L ABG O2 Saturation (95-98) % ABG O2 Content (15-23) ML/dl ABG Base Excess (-2.0-3.0) mmol/L ABG Hemoglobin (11.7-17.4) g/dL ABG Carboxyhemoglobin (0.5-1.5) % POC ABG HHb (Measured) (0-5) % ABG Methemoglobin (0.0-3.0) % ABG O2 Capacity (16-24) mL/dl Hgb O2 Saturation (95.0-98.0) % FiO2 % Sodium (132-148) mmol/L Potassium (3.6-5.0) mmol/L Chloride (98-107) mmol/L Carbon Dioxide (21-33) mmol/L Anion Gap (10-20) BUN (7-21) mg/dL Creatinine (0.8-1.5) mg/dl Est GFR ( Amer) Est GFR (Non-Af Amer) POC Glucose (mg/dL) 190 H 330 H 326 H (65-110) mg/dL Random Glucose (70-110) mg/dL Calcium (8.4-10.5) mg/dL Phosphorus (2.5-4.5) mg/dL Magnesium (1.7-2.2) mg/dL Total Bilirubin (0.2-1.3) mg/dL AST (17-59) U/L ALT (7-56) U/L Alkaline Phosphatase (38-126) U/L Total Protein (5.8-8.3) g/dL Albumin (3.0-4.8) g/dL Globulin gm/dL Albumin/Globulin Ratio (1.1-1.8) 05/14/18 05/14/18 05/14/18 Range/Units 21:12 16:06 11:02 WBC (4.5-11.0) 10^3/uL RBC (3.5-6.1) 10^6/uL Hgb (14.0-18.0) g/dL Hct (42.0-52.0) % MCV (80.0-105.0) fl MCH (25.0-35.0) pg MCHC (31.0-37.0) g/dl RDW (11.5-14.5) % Plt Count (120.0-450.0) 10^3/uL MPV (7.0-11.0) fl Neut % (Auto) (50.0-68.0) % Lymph % (Auto) (22.0-35.0) % Carson % (Auto) (1.0-6.0) % Eos % (Auto) (1.5-5.0) % Baso % (Auto) (0.0-3.0) % Lymph # (Auto) (1.2-3.4) Carson # (Auto) (0.1-0.6) Eos # (Auto) (0.0-0.7) Baso # (Auto) (0.0-2.0) K/mm3 Absolute Neuts (auto) (1.4-6.5) pCO2 (35-45) mm/Hg pO2 (80-100) mm/Hg HCO3 (21-28) mmol/L ABG pH (7.35-7.45) ABG Total CO2 (22-28) mmol.L ABG O2 Saturation (95-98) % ABG O2 Content (15-23) ML/dl ABG Base Excess (-2.0-3.0) mmol/L ABG Hemoglobin (11.7-17.4) g/dL ABG Carboxyhemoglobin (0.5-1.5) % POC ABG HHb (Measured) (0-5) % ABG Methemoglobin (0.0-3.0) % ABG O2 Capacity (16-24) mL/dl Hgb O2 Saturation (95.0-98.0) % FiO2 % Sodium (132-148) mmol/L Potassium (3.6-5.0) mmol/L Chloride (98-107) mmol/L Carbon Dioxide (21-33) mmol/L Anion Gap (10-20) BUN (7-21) mg/dL Creatinine (0.8-1.5) mg/dl Est GFR ( Amer) Est GFR (Non-Af Amer) POC Glucose (mg/dL) 271 H 274 H 339 H (65-110) mg/dL Random Glucose (70-110) mg/dL Calcium (8.4-10.5) mg/dL Phosphorus (2.5-4.5) mg/dL Magnesium (1.7-2.2) mg/dL Total Bilirubin (0.2-1.3) mg/dL AST (17-59) U/L ALT (7-56) U/L Alkaline Phosphatase (38-126) U/L Total Protein (5.8-8.3) g/dL Albumin (3.0-4.8) g/dL Globulin gm/dL Albumin/Globulin Ratio (1.1-1.8) 05/14/18 05/13/18 05/13/18 Range/Units 07:35 21:32 17:44 WBC (4.5-11.0) 10^3/uL RBC (3.5-6.1) 10^6/uL Hgb (14.0-18.0) g/dL Hct (42.0-52.0) % MCV (80.0-105.0) fl MCH (25.0-35.0) pg MCHC (31.0-37.0) g/dl RDW (11.5-14.5) % Plt Count (120.0-450.0) 10^3/uL MPV (7.0-11.0) fl Neut % (Auto) (50.0-68.0) % Lymph % (Auto) (22.0-35.0) % Carson % (Auto) (1.0-6.0) % Eos % (Auto) (1.5-5.0) % Baso % (Auto) (0.0-3.0) % Lymph # (Auto) (1.2-3.4) Carson # (Auto) (0.1-0.6) Eos # (Auto) (0.0-0.7) Baso # (Auto) (0.0-2.0) K/mm3 Absolute Neuts (auto) (1.4-6.5) pCO2 (35-45) mm/Hg pO2 (80-100) mm/Hg HCO3 (21-28) mmol/L ABG pH (7.35-7.45) ABG Total CO2 (22-28) mmol.L ABG O2 Saturation (95-98) % ABG O2 Content (15-23) ML/dl ABG Base Excess (-2.0-3.0) mmol/L ABG Hemoglobin (11.7-17.4) g/dL ABG Carboxyhemoglobin (0.5-1.5) % POC ABG HHb (Measured) (0-5) % ABG Methemoglobin (0.0-3.0) % ABG O2 Capacity (16-24) mL/dl Hgb O2 Saturation (95.0-98.0) % FiO2 % Sodium (132-148) mmol/L Potassium (3.6-5.0) mmol/L Chloride (98-107) mmol/L Carbon Dioxide (21-33) mmol/L Anion Gap (10-20) BUN (7-21) mg/dL Creatinine (0.8-1.5) mg/dl Est GFR ( Amer) Est GFR (Non-Af Amer) POC Glucose (mg/dL) 329 H 208 H 289 H (65-110) mg/dL Random Glucose (70-110) mg/dL Calcium (8.4-10.5) mg/dL Phosphorus (2.5-4.5) mg/dL Magnesium (1.7-2.2) mg/dL Total Bilirubin (0.2-1.3) mg/dL AST (17-59) U/L ALT (7-56) U/L Alkaline Phosphatase (38-126) U/L Total Protein (5.8-8.3) g/dL Albumin (3.0-4.8) g/dL Globulin gm/dL Albumin/Globulin Ratio (1.1-1.8) 05/13/18 05/13/18 05/12/18 Range/Units 12:27 07:11 21:16 WBC (4.5-11.0) 10^3/uL RBC (3.5-6.1) 10^6/uL Hgb (14.0-18.0) g/dL Hct (42.0-52.0) % MCV (80.0-105.0) fl MCH (25.0-35.0) pg MCHC (31.0-37.0) g/dl RDW (11.5-14.5) % Plt Count (120.0-450.0) 10^3/uL MPV (7.0-11.0) fl Neut % (Auto) (50.0-68.0) % Lymph % (Auto) (22.0-35.0) % Carson % (Auto) (1.0-6.0) % Eos % (Auto) (1.5-5.0) % Baso % (Auto) (0.0-3.0) % Lymph # (Auto) (1.2-3.4) Carson # (Auto) (0.1-0.6) Eos # (Auto) (0.0-0.7) Baso # (Auto) (0.0-2.0) K/mm3 Absolute Neuts (auto) (1.4-6.5) pCO2 (35-45) mm/Hg pO2 (80-100) mm/Hg HCO3 (21-28) mmol/L ABG pH (7.35-7.45) ABG Total CO2 (22-28) mmol.L ABG O2 Saturation (95-98) % ABG O2 Content (15-23) ML/dl ABG Base Excess (-2.0-3.0) mmol/L ABG Hemoglobin (11.7-17.4) g/dL ABG Carboxyhemoglobin (0.5-1.5) % POC ABG HHb (Measured) (0-5) % ABG Methemoglobin (0.0-3.0) % ABG O2 Capacity (16-24) mL/dl Hgb O2 Saturation (95.0-98.0) % FiO2 % Sodium (132-148) mmol/L Potassium (3.6-5.0) mmol/L Chloride (98-107) mmol/L Carbon Dioxide (21-33) mmol/L Anion Gap (10-20) BUN (7-21) mg/dL Creatinine (0.8-1.5) mg/dl Est GFR ( Amer) Est GFR (Non-Af Amer) POC Glucose (mg/dL) 291 H 355 H 243 H (65-110) mg/dL Random Glucose (70-110) mg/dL Calcium (8.4-10.5) mg/dL Phosphorus (2.5-4.5) mg/dL Magnesium (1.7-2.2) mg/dL Total Bilirubin (0.2-1.3) mg/dL AST (17-59) U/L ALT (7-56) U/L Alkaline Phosphatase (38-126) U/L Total Protein (5.8-8.3) g/dL Albumin (3.0-4.8) g/dL Globulin gm/dL Albumin/Globulin Ratio (1.1-1.8) 05/12/18 05/12/18 Range/Units 16:43 12:05 WBC (4.5-11.0) 10^3/uL RBC (3.5-6.1) 10^6/uL Hgb (14.0-18.0) g/dL Hct (42.0-52.0) % MCV (80.0-105.0) fl MCH (25.0-35.0) pg MCHC (31.0-37.0) g/dl RDW (11.5-14.5) % Plt Count (120.0-450.0) 10^3/uL MPV (7.0-11.0) fl Neut % (Auto) (50.0-68.0) % Lymph % (Auto) (22.0-35.0) % Carson % (Auto) (1.0-6.0) % Eos % (Auto) (1.5-5.0) % Baso % (Auto) (0.0-3.0) % Lymph # (Auto) (1.2-3.4) Carson # (Auto) (0.1-0.6) Eos # (Auto) (0.0-0.7) Baso # (Auto) (0.0-2.0) K/mm3 Absolute Neuts (auto) (1.4-6.5) pCO2 (35-45) mm/Hg pO2 (80-100) mm/Hg HCO3 (21-28) mmol/L ABG pH (7.35-7.45) ABG Total CO2 (22-28) mmol.L ABG O2 Saturation (95-98) % ABG O2 Content (15-23) ML/dl ABG Base Excess (-2.0-3.0) mmol/L ABG Hemoglobin (11.7-17.4) g/dL ABG Carboxyhemoglobin (0.5-1.5) % POC ABG HHb (Measured) (0-5) % ABG Methemoglobin (0.0-3.0) % ABG O2 Capacity (16-24) mL/dl Hgb O2 Saturation (95.0-98.0) % FiO2 % Sodium (132-148) mmol/L Potassium (3.6-5.0) mmol/L Chloride (98-107) mmol/L Carbon Dioxide (21-33) mmol/L Anion Gap (10-20) BUN (7-21) mg/dL Creatinine (0.8-1.5) mg/dl Est GFR ( Amer) Est GFR (Non-Af Amer) POC Glucose (mg/dL) 222 H 266 H (65-110) mg/dL Random Glucose (70-110) mg/dL Calcium (8.4-10.5) mg/dL Phosphorus (2.5-4.5) mg/dL Magnesium (1.7-2.2) mg/dL Total Bilirubin (0.2-1.3) mg/dL AST (17-59) U/L ALT (7-56) U/L Alkaline Phosphatase (38-126) U/L Total Protein (5.8-8.3) g/dL Albumin (3.0-4.8) g/dL Globulin gm/dL Albumin/Globulin Ratio (1.1-1.8) Laboratory Results - last 24 hr 05/12/18 05/12/18 05/12/18 12:05 16:43 21:16 WBC RBC Hgb Hct MCV MCH MCHC RDW Plt Count MPV Neut % (Auto) Lymph % (Auto) Carson % (Auto) Eos % (Auto) Baso % (Auto) Lymph # (Auto) Carson # (Auto) Eos # (Auto) Baso # (Auto) Absolute Neuts (auto) pCO2 pO2 HCO3 ABG pH ABG Total CO2 ABG O2 Saturation ABG O2 Content ABG Base Excess ABG Hemoglobin ABG Carboxyhemoglobin POC ABG HHb (Measured) ABG Methemoglobin ABG O2 Capacity Hgb O2 Saturation FiO2 Sodium Potassium Chloride Carbon Dioxide Anion Gap BUN Creatinine Est GFR ( Amer) Est GFR (Non-Af Amer) POC Glucose (mg/dL) 266 H 222 H 243 H Random Glucose Calcium Phosphorus Magnesium Total Bilirubin AST ALT Alkaline Phosphatase Total Protein Albumin Globulin Albumin/Globulin Ratio 05/13/18 05/13/18 05/13/18 07:11 12:27 17:44 WBC RBC Hgb Hct MCV MCH MCHC RDW Plt Count MPV Neut % (Auto) Lymph % (Auto) Carson % (Auto) Eos % (Auto) Baso % (Auto) Lymph # (Auto) Carson # (Auto) Eos # (Auto) Baso # (Auto) Absolute Neuts (auto) pCO2 pO2 HCO3 ABG pH ABG Total CO2 ABG O2 Saturation ABG O2 Content ABG Base Excess ABG Hemoglobin ABG Carboxyhemoglobin POC ABG HHb (Measured) ABG Methemoglobin ABG O2 Capacity Hgb O2 Saturation FiO2 Sodium Potassium Chloride Carbon Dioxide Anion Gap BUN Creatinine Est GFR ( Amer) Est GFR (Non-Af Amer) POC Glucose (mg/dL) 355 H 291 H 289 H Random Glucose Calcium Phosphorus Magnesium Total Bilirubin AST ALT Alkaline Phosphatase Total Protein Albumin Globulin Albumin/Globulin Ratio 05/13/18 05/14/18 05/14/18 21:32 07:35 11:02 WBC RBC Hgb Hct MCV MCH MCHC RDW Plt Count MPV Neut % (Auto) Lymph % (Auto) Carson % (Auto) Eos % (Auto) Baso % (Auto) Lymph # (Auto) Carson # (Auto) Eos # (Auto) Baso # (Auto) Absolute Neuts (auto) pCO2 pO2 HCO3 ABG pH ABG Total CO2 ABG O2 Saturation ABG O2 Content ABG Base Excess ABG Hemoglobin ABG Carboxyhemoglobin POC ABG HHb (Measured) ABG Methemoglobin ABG O2 Capacity Hgb O2 Saturation FiO2 Sodium Potassium Chloride Carbon Dioxide Anion Gap BUN Creatinine Est GFR ( Amer) Est GFR (Non-Af Amer) POC Glucose (mg/dL) 208 H 329 H 339 H Random Glucose Calcium Phosphorus Magnesium Total Bilirubin AST ALT Alkaline Phosphatase Total Protein Albumin Globulin Albumin/Globulin Ratio 05/14/18 05/14/18 05/15/18 16:06 21:12 08:17 WBC RBC Hgb Hct MCV MCH MCHC RDW Plt Count MPV Neut % (Auto) Lymph % (Auto) Carson % (Auto) Eos % (Auto) Baso % (Auto) Lymph # (Auto) Carson # (Auto) Eos # (Auto) Baso # (Auto) Absolute Neuts (auto) pCO2 pO2 HCO3 ABG pH ABG Total CO2 ABG O2 Saturation ABG O2 Content ABG Base Excess ABG Hemoglobin ABG Carboxyhemoglobin POC ABG HHb (Measured) ABG Methemoglobin ABG O2 Capacity Hgb O2 Saturation FiO2 Sodium Potassium Chloride Carbon Dioxide Anion Gap BUN Creatinine Est GFR ( Amer) Est GFR (Non-Af Amer) POC Glucose (mg/dL) 274 H 271 H 326 H Random Glucose Calcium Phosphorus Magnesium Total Bilirubin AST ALT Alkaline Phosphatase Total Protein Albumin Globulin Albumin/Globulin Ratio 05/15/18 05/15/18 05/15/18 11:09 16:36 21:36 WBC RBC Hgb Hct MCV MCH MCHC RDW Plt Count MPV Neut % (Auto) Lymph % (Auto) Carson % (Auto) Eos % (Auto) Baso % (Auto) Lymph # (Auto) Carson # (Auto) Eos # (Auto) Baso # (Auto) Absolute Neuts (auto) pCO2 pO2 HCO3 ABG pH ABG Total CO2 ABG O2 Saturation ABG O2 Content ABG Base Excess ABG Hemoglobin ABG Carboxyhemoglobin POC ABG HHb (Measured) ABG Methemoglobin ABG O2 Capacity Hgb O2 Saturation FiO2 Sodium Potassium Chloride Carbon Dioxide Anion Gap BUN Creatinine Est GFR ( Amer) Est GFR (Non-Af Amer) POC Glucose (mg/dL) 330 H 190 H 321 H Random Glucose Calcium Phosphorus Magnesium Total Bilirubin AST ALT Alkaline Phosphatase Total Protein Albumin Globulin Albumin/Globulin Ratio 05/16/18 05/16/18 05/16/18 07:15 11:15 15:59 WBC RBC Hgb Hct MCV MCH MCHC RDW Plt Count MPV Neut % (Auto) Lymph % (Auto) Carson % (Auto) Eos % (Auto) Baso % (Auto) Lymph # (Auto) Carson # (Auto) Eos # (Auto) Baso # (Auto) Absolute Neuts (auto) pCO2 pO2 HCO3 ABG pH ABG Total CO2 ABG O2 Saturation ABG O2 Content ABG Base Excess ABG Hemoglobin ABG Carboxyhemoglobin POC ABG HHb (Measured) ABG Methemoglobin ABG O2 Capacity Hgb O2 Saturation FiO2 Sodium Potassium Chloride Carbon Dioxide Anion Gap BUN Creatinine Est GFR ( Amer) Est GFR (Non-Af Amer) POC Glucose (mg/dL) 142 H 304 H 293 H Random Glucose Calcium Phosphorus Magnesium Total Bilirubin AST ALT Alkaline Phosphatase Total Protein Albumin Globulin Albumin/Globulin Ratio 05/16/18 05/17/18 05/17/18 21:06 05:00 06:00 WBC RBC Hgb Hct MCV MCH MCHC RDW Plt Count MPV Neut % (Auto) Lymph % (Auto) Carson % (Auto) Eos % (Auto) Baso % (Auto) Lymph # (Auto) Carson # (Auto) Eos # (Auto) Baso # (Auto) Absolute Neuts (auto) pCO2 55 H pO2 91.0 HCO3 33.3 H ABG pH 7.39 ABG Total CO2 35.0 H ABG O2 Saturation 99.3 H ABG O2 Content 9.9 L ABG Base Excess 7.5 H ABG Hemoglobin 7.2 L ABG Carboxyhemoglobin 2.7 H POC ABG HHb (Measured) 0.7 ABG Methemoglobin 0.7 ABG O2 Capacity 10.0 L Hgb O2 Saturation 95.9 FiO2 100.0 Sodium Potassium Chloride Carbon Dioxide Anion Gap BUN Creatinine Est GFR ( Amer) Est GFR (Non-Af Amer) POC Glucose (mg/dL) 239 H Random Glucose Calcium Phosphorus 4.4 Magnesium 2.9 H Total Bilirubin AST ALT Alkaline Phosphatase Total Protein Albumin Globulin Albumin/Globulin Ratio 05/17/18 05/17/18 08:00 08:00 WBC 22.1 H D RBC 2.66 L Hgb 7.8 L Hct 27.8 L MCV 104.5 MCH 29.3 MCHC 28.1 L RDW 21.2 H Plt Count 104 L MPV 13.0 H Neut % (Auto) 93.8 H Lymph % (Auto) 4.9 L Carson % (Auto) 1.2 Eos % (Auto) 0.0 L Baso % (Auto) 0.1 Lymph # (Auto) 1.1 L Carson # (Auto) 0.3 Eos # (Auto) 0.0 Baso # (Auto) 0.03 Absolute Neuts (auto) 20.72 H pCO2 pO2 HCO3 ABG pH ABG Total CO2 ABG O2 Saturation ABG O2 Content ABG Base Excess ABG Hemoglobin ABG Carboxyhemoglobin POC ABG HHb (Measured) ABG Methemoglobin ABG O2 Capacity Hgb O2 Saturation FiO2 Sodium 161 H* Potassium 4.9 Chloride 122 H Carbon Dioxide 40 H Anion Gap 4 L BUN 72 H Creatinine 1.2 Est GFR ( Amer) > 60 Est GFR (Non-Af Amer) 59 POC Glucose (mg/dL) Random Glucose 298 H Calcium 8.1 L Phosphorus Magnesium Total Bilirubin 0.9 AST 40 ALT 156 H Alkaline Phosphatase 165 H Total Protein 4.7 L Albumin 2.5 L Globulin 2.2 Albumin/Globulin Ratio 1.1 Radiology Impressions: Radiology Impressions Chest X-Ray 05/15/18 20:15 IMPRESSION: No significant interval change compared to the prior examination(s). Chest X-Ray 05/15/18 22:17 IMPRESSION: Stable bilateral mixed alveolar and interstitial infiltrates with trace bilateral pleural effusions difficult to completely exclude. Adequate adjustment of endotracheal tube. Chest X-Ray 05/17/18 05:00 IMPRESSION: Slight improvement in right perihilar probable airspace disease with chronic interstitial pulmonary changes again noted diffusely. Left basilar patchy density unchanged. No pulmonary vascular congestion. Trace right pleural effusion questioned, borderline left costophrenic sulcus. 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 Patient has failed multiple weaning trials and prognosis is critical. Plan: Neuro: S/p intubation for hypoxic repsiratory failure -Intubated on 05/05/18, currently sedated on precedex and fentanyl -Head CT w/o contrast on 05/10/18 showed no acute intracranial abnormalities -EEG on 05/11/18 showed abnormal EEG record that demonstrate the presence of mod erate to severe non specific diffuse disturbance of cortical activity, findings are not specific. No seizures. Patient is not in status epilepticus. Cardio: Atrial flutter -EKG 05/10: Atrial flutter with 2:1 AV block with HR: 156 -Cardizem drip restarted due to tachycardia in the 160s. -Continue with cardizem 60 mg QID -Maintain MAP>65. NSTEMI -EKG 05/10: Atrial flutter with 2:1 AV block with HR: 156 -Troponin: 05/06/09 10.9, 9.66, 8.96, 6.33 -Continue Aspirin 81mg, topical nitroglycerin q6 -Continue Lovenox 60 mg Q12 Elevated BNP -BNP: 3240, BNP pending for today. Consider diastolic CHF -Echocardiogram 05/07: EF: 49.3%, trace AR, MR, RVSP: 50 -Stopped lasix drip as patient has been tachycardic. Patient is likely dry and has been given boluses of NS with moderate improvement in heart rate. Pulm/Oncology Hypoxic respiratory failure 2/2 to ARDS from small cell lung carcinoma vs. pneumonitis -Patient intubated and sedated with settings 450/18/12/100% -Maintain O2 saturation>90%. ABG 05/17 shows pH: 7.39, pCO2: 55, and pO2: 91 which is improved from yesterday. -CXR: unchanged from prior CXR yesterday -As per Dr. Bullard, Heme/Onc, patient has possible pneumonitis as complication of Tecentriq treatment for SCLC -Treat Tecentriq side effect with solumedrol 40 mg Q12 -Recent PET CT shows improvement in small cell lung carcinoma -Weaning and sedation trials, Elevate bed to 30 degrees, oral protective hygiene daily, conservative fluid management COPD -Continue with Pulmicort 0.5 mg IH Q12, and xopenex 0.63 mg IH TID, solumedrol 40 mg Q12 GI: Elevated LFTs -improved today, consider dehydration vs congestive hepatopathy, will continue to trend Diet -continue jevity feedings Prophylaxis -Protonix 40 mg IV daily /Nephro: -BUN/Cr stable -Maintain euvolemia -Replace electrolytes as necessary ID: Multifocal pneumonia -CXR today shows no change from prior CXR yesterday. -Chest CT 04/27: multifocal pneumonia -Afebrile, WBC is 22.1 from 16.6, downtrending -Blood culture was negative for 5 days upon admission from 05/09. Blood culture reordered was negative for 4 days. -Negative urine culture, tracheal aspiration culture, C. Dif stool toxin -Procal 05/05: 0.55. Repeat procal was 0.62 on 05/09/18 -Vancomycin 1 gm Q12 day 12, Merrem 1 gm Q8 day 12, Nystatin 5 mg QID Endocrinology: -Random glucose: 298 -HgbA1c: 6.2 -High SSI -Continue with high dose sliding scale insulin with target glucose 140-180 Heme Anemia -Hg is 7.8 today from 7.3 yesterday DVT prophylaxis -Lovenox 60 mg Q12 as therapeutic anticoagulation for NSTEMI Disposition: Patient prognosis is critical. Per families wishes, patient to remain full code at this time Patient seen and examined with Dr. Gtz. - Date & Time Date: 05/17/18 Time: 10:18 <Shay Gtz - Last Filed: 05/17/18 17:02> CCU Objective - Vital Signs / Intake & Output Vital Signs (Last 4 hours): Vital Signs Temp Pulse BP Pulse Ox 05/17/18 15:05 99.9 F H 146 H 90/59 L 100 05/17/18 15:03 148 H 05/17/18 14:50 99.9 F H 149 H 91/57 L 100 05/17/18 14:35 99.9 F H 149 H 83/53 L 100 05/17/18 14:20 99.9 F H 150 H 83/55 L 100 05/17/18 14:05 99.9 F H 150 H 88/54 L 100 05/17/18 14:00 99.9 F H 151 H 100 05/17/18 13:50 99.9 F H 152 H 79/57 L 100 05/17/18 13:35 99.7 F H 152 H 90/54 L 100 05/17/18 13:34 153 H 05/17/18 13:20 99.7 F H 152 H 89/63 L 100 05/17/18 13:05 99.7 F H 151 H 87/59 L 100 Intake and Output (Last 8hrs): Intake & Output 05/17/18 05/17/18 05/17/18 06:59 14:59 22:59 Intake Total 100 155 225 Balance 100 155 225 Intake: IV 100 155 225 - Medications Active Medications: Active Medications Generic Name Dose Route Start Last Admin Trade Name Freq PRN Reason Stop Dose Admin Acetaminophen 650 mg 05/10/18 20:29 05/10/18 20:55 Tylenol 650 Mg Supp RC 650 mg Q6H PRN Administration Fever >100.4 F Acetaminophen 650 mg 05/14/18 09:13 05/14/18 09:29 Tylenol 650mg/20.3ml Solution Ud NG 650 mg Q6H PRN Administration FEVER > 100.4 Aspirin 81 mg 05/12/18 11:30 05/17/18 10:24 Aspirin Chewable PO 81 mg DAILY ZARI Administration Budesonide 0.5 mg 04/27/18 20:00 05/17/18 07:39 Pulmicort Respules IH 0.5 mg [id number] ZARI Administration Dextrose 0 ml 05/09/18 10:48 Dextrose 50% Inj IV STAT PRN Hypoglycemia Protocol Protocol Diltiazem HCl 120 mg 04/27/18 10:00 05/07/18 11:16 Cardizem Cd PO Not Given DAILY ZARI Diltiazem HCl 60 mg 05/15/18 09:00 05/17/18 13:41 Cardizem PO 60 mg TID ZARI Administration Hydromorphone HCl 0.5 mg 05/13/18 00:26 05/17/18 05:53 Dilaudid IVP 0.5 mg Q4H PRN Administration Pain, severe (8-10) Meropenem 1 gm in 50 mls @ 100 mls/hr 05/05/18 15:15 05/17/18 13:41 Merrem Iv 1 Gm Premix IVPB 100 mls/hr Q8 ZARI Administration Protocol Dexmedetomidine HCl 400 mcg in 100 mls @ 3.357 mls/hr 05/09/18 10:31 05/17/18 16:08 Precedex 400mcg/100ml IV 0.2 mcg/kg/hr .Q24H PRN 3.357 mls/hr Sedation Titration Protocol 0.2 MCG/KG/HR Dextrose 1,000 mls @ 0 mls/hr 05/09/18 10:48 Dextrose 5% In Water 1000 Ml IV .Q0M PRN Hypoglycemia Protocol Protocol Per Protocol diltiaZEM IVPB 100mg in NS 100 mls @ 10 mls/hr 05/11/18 08:12 05/17/18 16:07 Cardizem 100mg In Ns IV 0 mg/hr .Q10H PRN 0 mls/hr TITRATE PER MD ORDER Titration Protocol 10 MG/HR NOREPINEPHRINE BIT/0.9 % NACL 4 mg in 250 mls @ 15 mls/hr 05/12/18 19:49 05/13/18 12:00 Levophed 4 Mg/ 250 Ml Ns Premixed IV 0 mcg/min .[id number] PRN 0 mls/hr TITRATE PER MD ORDER Titration Protocol 4 MCG/MIN Fentanyl Citrate 1,000 mcg in 100 mls @ 2 mls/hr 05/14/18 16:24 05/17/18 16:07 Fentanyl Citrate/Sodium Chloride 1 Mg/100 Ml IV 70 mcg/hr .Q24H PRN 7 mls/hr TITRATE PER MD ORDER Titration Protocol 20 MCG/HR Insulin Human Lispro 0 units 05/17/18 18:00 Humalog High SC Q6 ZARI Protocol Levalbuterol HCl 0.63 mg 04/27/18 12:16 05/15/18 02:05 Xopenex IH 0.63 mg [id number] PRN Administration Shortness of Breath Levalbuterol HCl 0.63 mg 04/28/18 20:00 01/31/19 13:27 Xopenex IH Not Given TIDRESP ZARI Methylprednisolone 40 mg 05/15/18 22:00 05/17/18 10:24 Solu-Medrol IVP 40 mg Q12 ZARI Administration Pantoprazole Sodium 40 mg 05/09/18 10:00 05/17/18 10:24 Protonix Inj IVP 40 mg DAILY ZARI Administration Sotalol HCl 40 mg 05/09/18 10:00 05/11/18 09:16 Betapace PO Not Given BID ZARI Verapamil HCl 40 mg 05/10/18 14:00 05/11/18 09:16 Calan Tab PO Not Given TID ZARI Verapamil HCl 2.5 mg 05/10/18 12:31 05/17/18 13:34 Verapamil Inj IVP 2.5 mg Q6 PRN Administration FOR HR GREATER THAN 130 - Patient Studies Lab Studies: Microbiology Studies 05/13/18 10:05 Blood Culture - Preliminary Blood NO GROWTH AFTER 4 DAYS 05/13/18 09:25 Blood Culture - Preliminary Blood NO GROWTH AFTER 4 DAYS Lab Studies 05/17/18 05/17/18 05/17/18 Range/Units 11:13 08:00 08:00 WBC 22.1 H D (4.5-11.0) 10^3/uL RBC 2.66 L (3.5-6.1) 10^6/uL Hgb 7.8 L (14.0-18.0) g/dL Hct 27.8 L (42.0-52.0) % MCV 104.5 (80.0-105.0) fl MCH 29.3 (25.0-35.0) pg MCHC 28.1 L (31.0-37.0) g/dl RDW 21.2 H (11.5-14.5) % Plt Count 104 L (120.0-450.0) 10^3/uL MPV 13.0 H (7.0-11.0) fl Neut % (Auto) 93.8 H (50.0-68.0) % Lymph % (Auto) 4.9 L (22.0-35.0) % Carson % (Auto) 1.2 (1.0-6.0) % Eos % (Auto) 0.0 L (1.5-5.0) % Baso % (Auto) 0.1 (0.0-3.0) % Lymph # (Auto) 1.1 L (1.2-3.4) Carson # (Auto) 0.3 (0.1-0.6) Eos # (Auto) 0.0 (0.0-0.7) Baso # (Auto) 0.03 (0.0-2.0) K/mm3 Absolute Neuts (auto) 20.72 H (1.4-6.5) pCO2 (35-45) mm/Hg pO2 (80-100) mm/Hg HCO3 (21-28) mmol/L ABG pH (7.35-7.45) ABG Total CO2 (22-28) mmol.L ABG O2 Saturation (95-98) % ABG O2 Content (15-23) ML/dl ABG Base Excess (-2.0-3.0) mmol/L ABG Hemoglobin (11.7-17.4) g/dL ABG Carboxyhemoglobin (0.5-1.5) % POC ABG HHb (Measured) (0-5) % ABG Methemoglobin (0.0-3.0) % ABG O2 Capacity (16-24) mL/dl Hgb O2 Saturation (95.0-98.0) % FiO2 % Sodium 161 H* (132-148) mmol/L Potassium 4.9 (3.6-5.0) mmol/L Chloride 122 H (98-107) mmol/L Carbon Dioxide 40 H (21-33) mmol/L Anion Gap 4 L (10-20) BUN 72 H (7-21) mg/dL Creatinine 1.2 (0.8-1.5) mg/dl Est GFR ( Amer) > 60 Est GFR (Non-Af Amer) 59 POC Glucose (mg/dL) 260 H (65-110) mg/dL Random Glucose 298 H (70-110) mg/dL Calcium 8.1 L (8.4-10.5) mg/dL Phosphorus (2.5-4.5) mg/dL Magnesium (1.7-2.2) mg/dL Total Bilirubin 0.9 (0.2-1.3) mg/dL AST 40 (17-59) U/L ALT 156 H (7-56) U/L Alkaline Phosphatase 165 H (38-126) U/L Total Protein 4.7 L (5.8-8.3) g/dL Albumin 2.5 L (3.0-4.8) g/dL Globulin 2.2 gm/dL Albumin/Globulin Ratio 1.1 (1.1-1.8) 05/17/18 05/17/18 05/17/18 Range/Units 07:28 06:00 05:00 WBC (4.5-11.0) 10^3/uL RBC (3.5-6.1) 10^6/uL Hgb (14.0-18.0) g/dL Hct (42.0-52.0) % MCV (80.0-105.0) fl MCH (25.0-35.0) pg MCHC (31.0-37.0) g/dl RDW (11.5-14.5) % Plt Count (120.0-450.0) 10^3/uL MPV (7.0-11.0) fl Neut % (Auto) (50.0-68.0) % Lymph % (Auto) (22.0-35.0) % Carson % (Auto) (1.0-6.0) % Eos % (Auto) (1.5-5.0) % Baso % (Auto) (0.0-3.0) % Lymph # (Auto) (1.2-3.4) Carson # (Auto) (0.1-0.6) Eos # (Auto) (0.0-0.7) Baso # (Auto) (0.0-2.0) K/mm3 Absolute Neuts (auto) (1.4-6.5) pCO2 55 H (35-45) mm/Hg pO2 91.0 (80-100) mm/Hg HCO3 33.3 H (21-28) mmol/L ABG pH 7.39 (7.35-7.45) ABG Total CO2 35.0 H (22-28) mmol.L ABG O2 Saturation 99.3 H (95-98) % ABG O2 Content 9.9 L (15-23) ML/dl ABG Base Excess 7.5 H (-2.0-3.0) mmol/L ABG Hemoglobin 7.2 L (11.7-17.4) g/dL ABG Carboxyhemoglobin 2.7 H (0.5-1.5) % POC ABG HHb (Measured) 0.7 (0-5) % ABG Methemoglobin 0.7 (0.0-3.0) % ABG O2 Capacity 10.0 L (16-24) mL/dl Hgb O2 Saturation 95.9 (95.0-98.0) % FiO2 100.0 % Sodium (132-148) mmol/L Potassium (3.6-5.0) mmol/L Chloride (98-107) mmol/L Carbon Dioxide (21-33) mmol/L Anion Gap (10-20) BUN (7-21) mg/dL Creatinine (0.8-1.5) mg/dl Est GFR ( Amer) Est GFR (Non-Af Amer) POC Glucose (mg/dL) 311 H (65-110) mg/dL Random Glucose (70-110) mg/dL Calcium (8.4-10.5) mg/dL Phosphorus 4.4 (2.5-4.5) mg/dL Magnesium 2.9 H (1.7-2.2) mg/dL Total Bilirubin (0.2-1.3) mg/dL AST (17-59) U/L ALT (7-56) U/L Alkaline Phosphatase (38-126) U/L Total Protein (5.8-8.3) g/dL Albumin (3.0-4.8) g/dL Globulin gm/dL Albumin/Globulin Ratio (1.1-1.8) 05/16/18 05/16/18 05/16/18 Range/Units 21:06 15:59 11:15 WBC (4.5-11.0) 10^3/uL RBC (3.5-6.1) 10^6/uL Hgb (14.0-18.0) g/dL Hct (42.0-52.0) % MCV (80.0-105.0) fl MCH (25.0-35.0) pg MCHC (31.0-37.0) g/dl RDW (11.5-14.5) % Plt Count (120.0-450.0) 10^3/uL MPV (7.0-11.0) fl Neut % (Auto) (50.0-68.0) % Lymph % (Auto) (22.0-35.0) % Carson % (Auto) (1.0-6.0) % Eos % (Auto) (1.5-5.0) % Baso % (Auto) (0.0-3.0) % Lymph # (Auto) (1.2-3.4) Carson # (Auto) (0.1-0.6) Eos # (Auto) (0.0-0.7) Baso # (Auto) (0.0-2.0) K/mm3 Absolute Neuts (auto) (1.4-6.5) pCO2 (35-45) mm/Hg pO2 (80-100) mm/Hg HCO3 (21-28) mmol/L ABG pH (7.35-7.45) ABG Total CO2 (22-28) mmol.L ABG O2 Saturation (95-98) % ABG O2 Content (15-23) ML/dl ABG Base Excess (-2.0-3.0) mmol/L ABG Hemoglobin (11.7-17.4) g/dL ABG Carboxyhemoglobin (0.5-1.5) % POC ABG HHb (Measured) (0-5) % ABG Methemoglobin (0.0-3.0) % ABG O2 Capacity (16-24) mL/dl Hgb O2 Saturation (95.0-98.0) % FiO2 % Sodium (132-148) mmol/L Potassium (3.6-5.0) mmol/L Chloride (98-107) mmol/L Carbon Dioxide (21-33) mmol/L Anion Gap (10-20) BUN (7-21) mg/dL Creatinine (0.8-1.5) mg/dl Est GFR ( Amer) Est GFR (Non-Af Amer) POC Glucose (mg/dL) 239 H 293 H 304 H (65-110) mg/dL Random Glucose (70-110) mg/dL Calcium (8.4-10.5) mg/dL Phosphorus (2.5-4.5) mg/dL Magnesium (1.7-2.2) mg/dL Total Bilirubin (0.2-1.3) mg/dL AST (17-59) U/L ALT (7-56) U/L Alkaline Phosphatase (38-126) U/L Total Protein (5.8-8.3) g/dL Albumin (3.0-4.8) g/dL Globulin gm/dL Albumin/Globulin Ratio (1.1-1.8) 05/16/18 05/15/18 05/15/18 Range/Units 07:15 21:36 16:36 WBC (4.5-11.0) 10^3/uL RBC (3.5-6.1) 10^6/uL Hgb (14.0-18.0) g/dL Hct (42.0-52.0) % MCV (80.0-105.0) fl MCH (25.0-35.0) pg MCHC (31.0-37.0) g/dl RDW (11.5-14.5) % Plt Count (120.0-450.0) 10^3/uL MPV (7.0-11.0) fl Neut % (Auto) (50.0-68.0) % Lymph % (Auto) (22.0-35.0) % Carson % (Auto) (1.0-6.0) % Eos % (Auto) (1.5-5.0) % Baso % (Auto) (0.0-3.0) % Lymph # (Auto) (1.2-3.4) Carson # (Auto) (0.1-0.6) Eos # (Auto) (0.0-0.7) Baso # (Auto) (0.0-2.0) K/mm3 Absolute Neuts (auto) (1.4-6.5) pCO2 (35-45) mm/Hg pO2 (80-100) mm/Hg HCO3 (21-28) mmol/L ABG pH (7.35-7.45) ABG Total CO2 (22-28) mmol.L ABG O2 Saturation (95-98) % ABG O2 Content (15-23) ML/dl ABG Base Excess (-2.0-3.0) mmol/L ABG Hemoglobin (11.7-17.4) g/dL ABG Carboxyhemoglobin (0.5-1.5) % POC ABG HHb (Measured) (0-5) % ABG Methemoglobin (0.0-3.0) % ABG O2 Capacity (16-24) mL/dl Hgb O2 Saturation (95.0-98.0) % FiO2 % Sodium (132-148) mmol/L Potassium (3.6-5.0) mmol/L Chloride (98-107) mmol/L Carbon Dioxide (21-33) mmol/L Anion Gap (10-20) BUN (7-21) mg/dL Creatinine (0.8-1.5) mg/dl Est GFR ( Amer) Est GFR (Non-Af Amer) POC Glucose (mg/dL) 142 H 321 H 190 H (65-110) mg/dL Random Glucose (70-110) mg/dL Calcium (8.4-10.5) mg/dL Phosphorus (2.5-4.5) mg/dL Magnesium (1.7-2.2) mg/dL Total Bilirubin (0.2-1.3) mg/dL AST (17-59) U/L ALT (7-56) U/L Alkaline Phosphatase (38-126) U/L Total Protein (5.8-8.3) g/dL Albumin (3.0-4.8) g/dL Globulin gm/dL Albumin/Globulin Ratio (1.1-1.8) 05/15/18 05/15/18 05/14/18 Range/Units 11:09 08:17 21:12 WBC (4.5-11.0) 10^3/uL RBC (3.5-6.1) 10^6/uL Hgb (14.0-18.0) g/dL Hct (42.0-52.0) % MCV (80.0-105.0) fl MCH (25.0-35.0) pg MCHC (31.0-37.0) g/dl RDW (11.5-14.5) % Plt Count (120.0-450.0) 10^3/uL MPV (7.0-11.0) fl Neut % (Auto) (50.0-68.0) % Lymph % (Auto) (22.0-35.0) % Carson % (Auto) (1.0-6.0) % Eos % (Auto) (1.5-5.0) % Baso % (Auto) (0.0-3.0) % Lymph # (Auto) (1.2-3.4) Carson # (Auto) (0.1-0.6) Eos # (Auto) (0.0-0.7) Baso # (Auto) (0.0-2.0) K/mm3 Absolute Neuts (auto) (1.4-6.5) pCO2 (35-45) mm/Hg pO2 (80-100) mm/Hg HCO3 (21-28) mmol/L ABG pH (7.35-7.45) ABG Total CO2 (22-28) mmol.L ABG O2 Saturation (95-98) % ABG O2 Content (15-23) ML/dl ABG Base Excess (-2.0-3.0) mmol/L ABG Hemoglobin (11.7-17.4) g/dL ABG Carboxyhemoglobin (0.5-1.5) % POC ABG HHb (Measured) (0-5) % ABG Methemoglobin (0.0-3.0) % ABG O2 Capacity (16-24) mL/dl Hgb O2 Saturation (95.0-98.0) % FiO2 % Sodium (132-148) mmol/L Potassium (3.6-5.0) mmol/L Chloride (98-107) mmol/L Carbon Dioxide (21-33) mmol/L Anion Gap (10-20) BUN (7-21) mg/dL Creatinine (0.8-1.5) mg/dl Est GFR ( Amer) Est GFR (Non-Af Amer) POC Glucose (mg/dL) 330 H 326 H 271 H (65-110) mg/dL Random Glucose (70-110) mg/dL Calcium (8.4-10.5) mg/dL Phosphorus (2.5-4.5) mg/dL Magnesium (1.7-2.2) mg/dL Total Bilirubin (0.2-1.3) mg/dL AST (17-59) U/L ALT (7-56) U/L Alkaline Phosphatase (38-126) U/L Total Protein (5.8-8.3) g/dL Albumin (3.0-4.8) g/dL Globulin gm/dL Albumin/Globulin Ratio (1.1-1.8) 05/14/18 05/14/18 05/14/18 Range/Units 16:06 11:02 07:35 WBC (4.5-11.0) 10^3/uL RBC (3.5-6.1) 10^6/uL Hgb (14.0-18.0) g/dL Hct (42.0-52.0) % MCV (80.0-105.0) fl MCH (25.0-35.0) pg MCHC (31.0-37.0) g/dl RDW (11.5-14.5) % Plt Count (120.0-450.0) 10^3/uL MPV (7.0-11.0) fl Neut % (Auto) (50.0-68.0) % Lymph % (Auto) (22.0-35.0) % Carson % (Auto) (1.0-6.0) % Eos % (Auto) (1.5-5.0) % Baso % (Auto) (0.0-3.0) % Lymph # (Auto) (1.2-3.4) Carson # (Auto) (0.1-0.6) Eos # (Auto) (0.0-0.7) Baso # (Auto) (0.0-2.0) K/mm3 Absolute Neuts (auto) (1.4-6.5) pCO2 (35-45) mm/Hg pO2 (80-100) mm/Hg HCO3 (21-28) mmol/L ABG pH (7.35-7.45) ABG Total CO2 (22-28) mmol.L ABG O2 Saturation (95-98) % ABG O2 Content (15-23) ML/dl ABG Base Excess (-2.0-3.0) mmol/L ABG Hemoglobin (11.7-17.4) g/dL ABG Carboxyhemoglobin (0.5-1.5) % POC ABG HHb (Measured) (0-5) % ABG Methemoglobin (0.0-3.0) % ABG O2 Capacity (16-24) mL/dl Hgb O2 Saturation (95.0-98.0) % FiO2 % Sodium (132-148) mmol/L Potassium (3.6-5.0) mmol/L Chloride (98-107) mmol/L Carbon Dioxide (21-33) mmol/L Anion Gap (10-20) BUN (7-21) mg/dL Creatinine (0.8-1.5) mg/dl Est GFR ( Amer) Est GFR (Non-Af Amer) POC Glucose (mg/dL) 274 H 339 H 329 H (65-110) mg/dL Random Glucose (70-110) mg/dL Calcium (8.4-10.5) mg/dL Phosphorus (2.5-4.5) mg/dL Magnesium (1.7-2.2) mg/dL Total Bilirubin (0.2-1.3) mg/dL AST (17-59) U/L ALT (7-56) U/L Alkaline Phosphatase (38-126) U/L Total Protein (5.8-8.3) g/dL Albumin (3.0-4.8) g/dL Globulin gm/dL Albumin/Globulin Ratio (1.1-1.8) 05/13/18 05/13/18 05/13/18 Range/Units 21:32 17:44 12:27 WBC (4.5-11.0) 10^3/uL RBC (3.5-6.1) 10^6/uL Hgb (14.0-18.0) g/dL Hct (42.0-52.0) % MCV (80.0-105.0) fl MCH (25.0-35.0) pg MCHC (31.0-37.0) g/dl RDW (11.5-14.5) % Plt Count (120.0-450.0) 10^3/uL MPV (7.0-11.0) fl Neut % (Auto) (50.0-68.0) % Lymph % (Auto) (22.0-35.0) % Carson % (Auto) (1.0-6.0) % Eos % (Auto) (1.5-5.0) % Baso % (Auto) (0.0-3.0) % Lymph # (Auto) (1.2-3.4) Carson # (Auto) (0.1-0.6) Eos # (Auto) (0.0-0.7) Baso # (Auto) (0.0-2.0) K/mm3 Absolute Neuts (auto) (1.4-6.5) pCO2 (35-45) mm/Hg pO2 (80-100) mm/Hg HCO3 (21-28) mmol/L ABG pH (7.35-7.45) ABG Total CO2 (22-28) mmol.L ABG O2 Saturation (95-98) % ABG O2 Content (15-23) ML/dl ABG Base Excess (-2.0-3.0) mmol/L ABG Hemoglobin (11.7-17.4) g/dL ABG Carboxyhemoglobin (0.5-1.5) % POC ABG HHb (Measured) (0-5) % ABG Methemoglobin (0.0-3.0) % ABG O2 Capacity (16-24) mL/dl Hgb O2 Saturation (95.0-98.0) % FiO2 % Sodium (132-148) mmol/L Potassium (3.6-5.0) mmol/L Chloride (98-107) mmol/L Carbon Dioxide (21-33) mmol/L Anion Gap (10-20) BUN (7-21) mg/dL Creatinine (0.8-1.5) mg/dl Est GFR ( Amer) Est GFR (Non-Af Amer) POC Glucose (mg/dL) 208 H 289 H 291 H (65-110) mg/dL Random Glucose (70-110) mg/dL Calcium (8.4-10.5) mg/dL Phosphorus (2.5-4.5) mg/dL Magnesium (1.7-2.2) mg/dL Total Bilirubin (0.2-1.3) mg/dL AST (17-59) U/L ALT (7-56) U/L Alkaline Phosphatase (38-126) U/L Total Protein (5.8-8.3) g/dL Albumin (3.0-4.8) g/dL Globulin gm/dL Albumin/Globulin Ratio (1.1-1.8) 05/13/18 05/12/18 05/12/18 Range/Units 07:11 21:16 16:43 WBC (4.5-11.0) 10^3/uL RBC (3.5-6.1) 10^6/uL Hgb (14.0-18.0) g/dL Hct (42.0-52.0) % MCV (80.0-105.0) fl MCH (25.0-35.0) pg MCHC (31.0-37.0) g/dl RDW (11.5-14.5) % Plt Count (120.0-450.0) 10^3/uL MPV (7.0-11.0) fl Neut % (Auto) (50.0-68.0) % Lymph % (Auto) (22.0-35.0) % Carson % (Auto) (1.0-6.0) % Eos % (Auto) (1.5-5.0) % Baso % (Auto) (0.0-3.0) % Lymph # (Auto) (1.2-3.4) Carson # (Auto) (0.1-0.6) Eos # (Auto) (0.0-0.7) Baso # (Auto) (0.0-2.0) K/mm3 Absolute Neuts (auto) (1.4-6.5) pCO2 (35-45) mm/Hg pO2 (80-100) mm/Hg HCO3 (21-28) mmol/L ABG pH (7.35-7.45) ABG Total CO2 (22-28) mmol.L ABG O2 Saturation (95-98) % ABG O2 Content (15-23) ML/dl ABG Base Excess (-2.0-3.0) mmol/L ABG Hemoglobin (11.7-17.4) g/dL ABG Carboxyhemoglobin (0.5-1.5) % POC ABG HHb (Measured) (0-5) % ABG Methemoglobin (0.0-3.0) % ABG O2 Capacity (16-24) mL/dl Hgb O2 Saturation (95.0-98.0) % FiO2 % Sodium (132-148) mmol/L Potassium (3.6-5.0) mmol/L Chloride (98-107) mmol/L Carbon Dioxide (21-33) mmol/L Anion Gap (10-20) BUN (7-21) mg/dL Creatinine (0.8-1.5) mg/dl Est GFR ( Amer) Est GFR (Non-Af Amer) POC Glucose (mg/dL) 355 H 243 H 222 H (65-110) mg/dL Random Glucose (70-110) mg/dL Calcium (8.4-10.5) mg/dL Phosphorus (2.5-4.5) mg/dL Magnesium (1.7-2.2) mg/dL Total Bilirubin (0.2-1.3) mg/dL AST (17-59) U/L ALT (7-56) U/L Alkaline Phosphatase (38-126) U/L Total Protein (5.8-8.3) g/dL Albumin (3.0-4.8) g/dL Globulin gm/dL Albumin/Globulin Ratio (1.1-1.8) // Range/Units 12:05 WBC (4.5-11.0) 10^3/uL RBC (3.5-6.1) 10^6/uL Hgb (14.0-18.0) g/dL Hct (42.0-52.0) % MCV (80.0-105.0) fl MCH (25.0-35.0) pg MCHC (31.0-37.0) g/dl RDW (11.5-14.5) % Plt Count (120.0-450.0) 10^3/uL MPV (7.0-11.0) fl Neut % (Auto) (50.0-68.0) % Lymph % (Auto) (22.0-35.0) % Carson % (Auto) (1.0-6.0) % Eos % (Auto) (1.5-5.0) % Baso % (Auto) (0.0-3.0) % Lymph # (Auto) (1.2-3.4) Carson # (Auto) (0.1-0.6) Eos # (Auto) (0.0-0.7) Baso # (Auto) (0.0-2.0) K/mm3 Absolute Neuts (auto) (1.4-6.5) pCO2 (35-45) mm/Hg pO2 (80-100) mm/Hg HCO3 (21-28) mmol/L ABG pH (7.35-7.45) ABG Total CO2 (22-28) mmol.L ABG O2 Saturation (95-98) % ABG O2 Content (15-23) ML/dl ABG Base Excess (-2.0-3.0) mmol/L ABG Hemoglobin (11.7-17.4) g/dL ABG Carboxyhemoglobin (0.5-1.5) % POC ABG HHb (Measured) (0-5) % ABG Methemoglobin (0.0-3.0) % ABG O2 Capacity (16-24) mL/dl Hgb O2 Saturation (95.0-98.0) % FiO2 % Sodium (132-148) mmol/L Potassium (3.6-5.0) mmol/L Chloride (98-107) mmol/L Carbon Dioxide (21-33) mmol/L Anion Gap (10-20) BUN (7-21) mg/dL Creatinine (0.8-1.5) mg/dl Est GFR ( Amer) Est GFR (Non-Af Amer) POC Glucose (mg/dL) 266 H (65-110) mg/dL Random Glucose (70-110) mg/dL Calcium (8.4-10.5) mg/dL Phosphorus (2.5-4.5) mg/dL Magnesium (1.7-2.2) mg/dL Total Bilirubin (0.2-1.3) mg/dL AST (17-59) U/L ALT (7-56) U/L Alkaline Phosphatase (38-126) U/L Total Protein (5.8-8.3) g/dL Albumin (3.0-4.8) g/dL Globulin gm/dL Albumin/Globulin Ratio (1.1-1.8) Laboratory Results - last 24 hr 05/12/18 05/12/18 05/12/18 12:05 16:43 21:16 WBC RBC Hgb Hct MCV MCH MCHC RDW Plt Count MPV Neut % (Auto) Lymph % (Auto) Carson % (Auto) Eos % (Auto) Baso % (Auto) Lymph # (Auto) Carson # (Auto) Eos # (Auto) Baso # (Auto) Absolute Neuts (auto) pCO2 pO2 HCO3 ABG pH ABG Total CO2 ABG O2 Saturation ABG O2 Content ABG Base Excess ABG Hemoglobin ABG Carboxyhemoglobin POC ABG HHb (Measured) ABG Methemoglobin ABG O2 Capacity Hgb O2 Saturation FiO2 Sodium Potassium Chloride Carbon Dioxide Anion Gap BUN Creatinine Est GFR ( Amer) Est GFR (Non-Af Amer) POC Glucose (mg/dL) 266 H 222 H 243 H Random Glucose Calcium Phosphorus Magnesium Total Bilirubin AST ALT Alkaline Phosphatase Total Protein Albumin Globulin Albumin/Globulin Ratio 05/13/18 05/13/18 05/13/18 07:11 12:27 17:44 WBC RBC Hgb Hct MCV MCH MCHC RDW Plt Count MPV Neut % (Auto) Lymph % (Auto) Carson % (Auto) Eos % (Auto) Baso % (Auto) Lymph # (Auto) Carson # (Auto) Eos # (Auto) Baso # (Auto) Absolute Neuts (auto) pCO2 pO2 HCO3 ABG pH ABG Total CO2 ABG O2 Saturation ABG O2 Content ABG Base Excess ABG Hemoglobin ABG Carboxyhemoglobin POC ABG HHb (Measured) ABG Methemoglobin ABG O2 Capacity Hgb O2 Saturation FiO2 Sodium Potassium Chloride Carbon Dioxide Anion Gap BUN Creatinine Est GFR ( Amer) Est GFR (Non-Af Amer) POC Glucose (mg/dL) 355 H 291 H 289 H Random Glucose Calcium Phosphorus Magnesium Total Bilirubin AST ALT Alkaline Phosphatase Total Protein Albumin Globulin Albumin/Globulin Ratio 05/13/18 05/14/18 05/14/18 21:32 07:35 11:02 WBC RBC Hgb Hct MCV MCH MCHC RDW Plt Count MPV Neut % (Auto) Lymph % (Auto) Carson % (Auto) Eos % (Auto) Baso % (Auto) Lymph # (Auto) Carson # (Auto) Eos # (Auto) Baso # (Auto) Absolute Neuts (auto) pCO2 pO2 HCO3 ABG pH ABG Total CO2 ABG O2 Saturation ABG O2 Content ABG Base Excess ABG Hemoglobin ABG Carboxyhemoglobin POC ABG HHb (Measured) ABG Methemoglobin ABG O2 Capacity Hgb O2 Saturation FiO2 Sodium Potassium Chloride Carbon Dioxide Anion Gap BUN Creatinine Est GFR ( Amer) Est GFR (Non-Af Amer) POC Glucose (mg/dL) 208 H 329 H 339 H Random Glucose Calcium Phosphorus Magnesium Total Bilirubin AST ALT Alkaline Phosphatase Total Protein Albumin Globulin Albumin/Globulin Ratio 05/14/18 05/14/18 05/15/18 16:06 21:12 08:17 WBC RBC Hgb Hct MCV MCH MCHC RDW Plt Count MPV Neut % (Auto) Lymph % (Auto) Carson % (Auto) Eos % (Auto) Baso % (Auto) Lymph # (Auto) Carson # (Auto) Eos # (Auto) Baso # (Auto) Absolute Neuts (auto) pCO2 pO2 HCO3 ABG pH ABG Total CO2 ABG O2 Saturation ABG O2 Content ABG Base Excess ABG Hemoglobin ABG Carboxyhemoglobin POC ABG HHb (Measured) ABG Methemoglobin ABG O2 Capacity Hgb O2 Saturation FiO2 Sodium Potassium Chloride Carbon Dioxide Anion Gap BUN Creatinine Est GFR ( Amer) Est GFR (Non-Af Amer) POC Glucose (mg/dL) 274 H 271 H 326 H Random Glucose Calcium Phosphorus Magnesium Total Bilirubin AST ALT Alkaline Phosphatase Total Protein Albumin Globulin Albumin/Globulin Ratio 05/15/18 05/15/18 05/15/18 11:09 16:36 21:36 WBC RBC Hgb Hct MCV MCH MCHC RDW Plt Count MPV Neut % (Auto) Lymph % (Auto) Carson % (Auto) Eos % (Auto) Baso % (Auto) Lymph # (Auto) Carson # (Auto) Eos # (Auto) Baso # (Auto) Absolute Neuts (auto) pCO2 pO2 HCO3 ABG pH ABG Total CO2 ABG O2 Saturation ABG O2 Content ABG Base Excess ABG Hemoglobin ABG Carboxyhemoglobin POC ABG HHb (Measured) ABG Methemoglobin ABG O2 Capacity Hgb O2 Saturation FiO2 Sodium Potassium Chloride Carbon Dioxide Anion Gap BUN Creatinine Est GFR ( Amer) Est GFR (Non-Af Amer) POC Glucose (mg/dL) 330 H 190 H 321 H Random Glucose Calcium Phosphorus Magnesium Total Bilirubin AST ALT Alkaline Phosphatase Total Protein Albumin Globulin Albumin/Globulin Ratio 05/16/18 05/16/18 05/16/18 07:15 11:15 15:59 WBC RBC Hgb Hct MCV MCH MCHC RDW Plt Count MPV Neut % (Auto) Lymph % (Auto) Carson % (Auto) Eos % (Auto) Baso % (Auto) Lymph # (Auto) Carson # (Auto) Eos # (Auto) Baso # (Auto) Absolute Neuts (auto) pCO2 pO2 HCO3 ABG pH ABG Total CO2 ABG O2 Saturation ABG O2 Content ABG Base Excess ABG Hemoglobin ABG Carboxyhemoglobin POC ABG HHb (Measured) ABG Methemoglobin ABG O2 Capacity Hgb O2 Saturation FiO2 Sodium Potassium Chloride Carbon Dioxide Anion Gap BUN Creatinine Est GFR ( Amer) Est GFR (Non-Af Amer) POC Glucose (mg/dL) 142 H 304 H 293 H Random Glucose Calcium Phosphorus Magnesium Total Bilirubin AST ALT Alkaline Phosphatase Total Protein Albumin Globulin Albumin/Globulin Ratio 05/16/18 05/17/18 05/17/18 21:06 05:00 06:00 WBC RBC Hgb Hct MCV MCH MCHC RDW Plt Count MPV Neut % (Auto) Lymph % (Auto) Carson % (Auto) Eos % (Auto) Baso % (Auto) Lymph # (Auto) Carson # (Auto) Eos # (Auto) Baso # (Auto) Absolute Neuts (auto) pCO2 55 H pO2 91.0 HCO3 33.3 H ABG pH 7.39 ABG Total CO2 35.0 H ABG O2 Saturation 99.3 H ABG O2 Content 9.9 L ABG Base Excess 7.5 H ABG Hemoglobin 7.2 L ABG Carboxyhemoglobin 2.7 H POC ABG HHb (Measured) 0.7 ABG Methemoglobin 0.7 ABG O2 Capacity 10.0 L Hgb O2 Saturation 95.9 FiO2 100.0 Sodium Potassium Chloride Carbon Dioxide Anion Gap BUN Creatinine Est GFR ( Amer) Est GFR (Non-Af Amer) POC Glucose (mg/dL) 239 H Random Glucose Calcium Phosphorus 4.4 Magnesium 2.9 H Total Bilirubin AST ALT Alkaline Phosphatase Total Protein Albumin Globulin Albumin/Globulin Ratio 05/17/18 05/17/18 05/17/18 07:28 08:00 08:00 WBC 22.1 H D RBC 2.66 L Hgb 7.8 L Hct 27.8 L MCV 104.5 MCH 29.3 MCHC 28.1 L RDW 21.2 H Plt Count 104 L MPV 13.0 H Neut % (Auto) 93.8 H Lymph % (Auto) 4.9 L Carson % (Auto) 1.2 Eos % (Auto) 0.0 L Baso % (Auto) 0.1 Lymph # (Auto) 1.1 L Carson # (Auto) 0.3 Eos # (Auto) 0.0 Baso # (Auto) 0.03 Absolute Neuts (auto) 20.72 H pCO2 pO2 HCO3 ABG pH ABG Total CO2 ABG O2 Saturation ABG O2 Content ABG Base Excess ABG Hemoglobin ABG Carboxyhemoglobin POC ABG HHb (Measured) ABG Methemoglobin ABG O2 Capacity Hgb O2 Saturation FiO2 Sodium 161 H* Potassium 4.9 Chloride 122 H Carbon Dioxide 40 H Anion Gap 4 L BUN 72 H Creatinine 1.2 Est GFR ( Amer) > 60 Est GFR (Non-Af Amer) 59 POC Glucose (mg/dL) 311 H Random Glucose 298 H Calcium 8.1 L Phosphorus Magnesium Total Bilirubin 0.9 AST 40 ALT 156 H Alkaline Phosphatase 165 H Total Protein 4.7 L Albumin 2.5 L Globulin 2.2 Albumin/Globulin Ratio 1.1 05/17/18 11:13 WBC RBC Hgb Hct MCV MCH MCHC RDW Plt Count MPV Neut % (Auto) Lymph % (Auto) Carson % (Auto) Eos % (Auto) Baso % (Auto) Lymph # (Auto) Carson # (Auto) Eos # (Auto) Baso # (Auto) Absolute Neuts (auto) pCO2 pO2 HCO3 ABG pH ABG Total CO2 ABG O2 Saturation ABG O2 Content ABG Base Excess ABG Hemoglobin ABG Carboxyhemoglobin POC ABG HHb (Measured) ABG Methemoglobin ABG O2 Capacity Hgb O2 Saturation FiO2 Sodium Potassium Chloride Carbon Dioxide Anion Gap BUN Creatinine Est GFR ( Amer) Est GFR (Non-Af Amer) POC Glucose (mg/dL) 260 H Random Glucose Calcium Phosphorus Magnesium Total Bilirubin AST ALT Alkaline Phosphatase Total Protein Albumin Globulin Albumin/Globulin Ratio Radiology Impressions: Radiology Impressions Chest X-Ray 05/17/18 05:00 IMPRESSION: Slight improvement in right perihilar probable airspace disease with chronic interstitial pulmonary changes again noted diffusely. Left basilar patchy density unchanged. No pulmonary vascular congestion. Trace right pleural effusion questioned, borderline left costophrenic sulcus. Critical Care Progress Note - Nutrition Nutrition: Nutrition Category Date Time Status NPO Diet [DIET] Diets 05/06/18 Breakfast Ordered Attending/Attestation - Attestation I have personally seen and examined this patient.: Yes I have fully participated in the care of the patient.: Yes I have reviewed all pertinent clinical information: Yes Notes (Text): 05/17/18 16:58 77 yo male with VDRF/HxRF. conservative fluid and 02 management, protective lung vent strategy, HOB>35, oral hygiene, dvt/gi prophylaxis. LTAC, cardizem drip for HR control.
[2018-05-17] MEDS: MethylPREDNISolone 40 mg Vial IVP SCH ×2 (10:24→22:14)
[2018-05-17] MEDS: Micafungin 100 MG in Sodium Chloride 0.9% 100 ML IV SCH (10:24)
[2018-05-17] MEDS: Fentanyl 1000mcg/100ml NS 1,000 MCG/100 ML BAG IV PRN ×2 (12:06→22:07)
--- NOTE | 2018-05-17 12:17 | PN ---
DATE: 05/17/2018 PULMONARY CRITICAL CARE PROGRESS NOTE REFERRING PHYSICIAN: Erasmo Briggs MD SUBJECTIVE: The patient lying in bed, remains on ventilator, intubated and sedated, afebrile. No overnight events reported. OBJECTIVE: GENERAL: Intubated and sedated. VITAL SIGNS: Blood pressure 103/52, heart rate 92, temperature 98.6 and oxygen saturation 99% during examination. HEENT: Moist mucous membranes. NECK: Supple. No JVD. RESPIRATORY: Decreased breath sounds bilaterally. CARDIOVASCULAR: S1 and S2, audible. ABDOMEN: Soft and nontender. No distention. EXTREMITIES: Bilateral upper and lower extremity edema. NEUROLOGIC: Intubated and sedated. MEDICATIONS: Reviewed. Tylenol 650 mg rectally every 6 hours p.r.n., fever greater than 100.4, Tylenol 650 mg nasogastric tube every 6 hours p.r.n., fever greater than 100.4, aspirin 81 mg daily, Pulmicort 0.5 mg every 12 hours, Precedex 400 mcg in 100 mL at 3.357 mL per hour IV every 24 hours p.r.n., Dextrose 5% water 1000 mL at mL per hour p.r.n., Cardizem 60 mg 3 times a day, Cardizem 100 mg in normal saline at 10 mL per hour every 10 hours p.r.n., fentanyl 1000 mcg and 100 mL at 2 mL per hour p.r.n., Dilaudid 0.5 mg IV push every 4 hours p.r.n., Humalog sliding scale a.c. and at bedtime, Xopenex 0.63 mg inhalation every 6 hours p.r.n., Xopenex 0.63 mg inhalation 3 times a day, meropenem 1 g every 8 hours, Solu-Medrol 40 mg every 12 hours, micafungin 100 mg daily, Levophed 4 mg in 250 mL at 15 mL per hour IV p.r.n., Protonix 40 mg IV push daily, sotalol 40 mg twice a day and verapamil 2.5 mg every 6 hours p.r.n. LABORATORY DATA: Reviewed. WBC 23.1, RBC 2.66, hemoglobin 7.8, hematocrit 27.8, and platelets 104. PCO2 of 55, pO2 of 91, HCO3 of 33, ABG pH 7.39 and FIO2 100. Sodium 161, potassium 4.9, chloride 122, carbon dioxide 40, anion gap 4, BUN 72, creatinine 1.2, GFR 59, random glucose 298, calcium 8.1, total bilirubin 0.8, AST 40, ALT 156, alkaline phosphatase 165, total protein 4.7, albumin 2.5, globulin 2.2, and albumin-globulin ratio 1.1. Blood cultures preliminary, no growth after 4 days. Chest x-ray shows slight improvement in right perihilar probable air space disease with chronic interstitial pulmonary changes again noted diffusely. Left basilar patchy density unchanged, no pulmonary vascular congestion, trace right pleural effusion? borderline left costophrenic sulcus. IMPRESSION AND PLAN: Deteriorating lung condition requiring increased oxygen requirement, multiorgan dysfunction, acute lung injury unknown cause could be healthcare-associated pneumonia, chemotherapy induced pneumonitis, unresectable small cell lung cancer, chronic obstructive lung disease, paroxysmal atrial fibrillation, respiratory failure on ventilator, cardiac infarction, failure to thrive, sepsis, renal failure. Continue steroids, inhaled bronchodilators, antibiotic therapy. Continue present vent setting, Cardiology followup, Oncology followup, Infectious Disease followup, prognosis is poor. We will repeat chest x-ray, labs, ABGs in the morning. Critical care time spent more than 35 minutes. This patient was seen and examined with Dr. Yi. Discussed assessment and plan as described above. Thank you for this consult. We will follow with you. Juan Carlos Paul APN Aura Yi MD RODRICK
--- NOTE | 2018-05-17 12:59 | CP.PCM.PN ---
Subjective - Date & Time of Evaluation Date of Evaluation: 05/17/18 Time of Evaluation: 10:30 - Subjective Subjective: Patient continues to be on the ventilator, tachycardic, in some distress, no fevers. Objective - Vital Signs/Intake and Output Vital Signs (last 24 hours): Temp Pulse Resp BP Pulse Ox 98.5 F 157 H 21 125/72 99 05/16/18 04:00 05/16/18 09:51 05/16/18 07:03 05/16/18 09:51 05/16/18 07:03 Intake and Output: 05/16/18 05/16/18 06:59 18:59 Intake Total 1818 Output Total 1050 Balance 768 - Medications Medications: Current Medications Acetaminophen (Tylenol 650 Mg Supp) 650 mg RC Q6H PRN PRN Reason: Fever >100.4 F Last Admin: 05/10/18 20:55 Dose: 650 mg Acetaminophen (Tylenol 650mg/20.3ml Solution Ud) 650 mg NG Q6H PRN PRN Reason: FEVER > 100.4 Last Admin: 05/14/18 09:29 Dose: 650 mg Aspirin (Aspirin Chewable) 81 mg PO DAILY [facility] Last Admin: 05/16/18 09:37 Dose: 81 mg Budesonide (Pulmicort Respules) 0.5 mg IH [id number] [facility] Last Admin: 05/16/18 07:01 Dose: 0.5 mg Dextrose (Dextrose 50% Inj) 0 ml IV STAT PRN; Protocol PRN Reason: Hypoglycemia Protocol Diltiazem HCl (Cardizem Cd) 120 mg PO DAILY [facility] Last Admin: 05/07/18 11:16 Dose: Not Given Diltiazem HCl (Cardizem) 60 mg PO TID [facility] Last Admin: 05/16/18 09:37 Dose: 60 mg Hydromorphone HCl (Dilaudid) 0.5 mg IVP Q4H PRN PRN Reason: Pain, severe (8-10) Last Admin: 05/15/18 05:23 Dose: 0.5 mg Meropenem (Merrem Iv 1 Gm Premix) 1 gm in 50 mls @ 100 mls/hr IVPB Q8 [facility]; Protocol Last Admin: 05/16/18 05:17 Dose: 100 mls/hr Vancomycin HCl (Vancomycin 1gm) 1 gm in 250 mls @ 167 mls/hr IVPB Q12H [facility]; Protocol Last Admin: 05/16/18 03:06 Dose: 167 mls/hr Dexmedetomidine HCl (Precedex 400mcg/100ml) 400 mcg in 100 mls @ 3.357 mls/hr IV .Q24H PRN; Protocol PRN Reason: Sedation Last Admin: 05/16/18 05:22 Dose: 0.8 mcg/kg/hr, 13.426 mls/hr Dextrose (Dextrose 5% In Water 1000 Ml) 1,000 mls @ 0 mls/hr IV .Q0M PRN; Protocol PRN Reason: Hypoglycemia Protocol Micafungin Sodium 100 mg/ (Sodium Chloride) 100 mls @ 100 mls/hr IV DAILY [facility]; Protocol Stop: 05/17/18 13:16 Last Admin: 05/16/18 09:53 Dose: 100 mls/hr diltiaZEM IVPB 100mg in NS (Cardizem 100mg In Ns) 100 mls @ 10 mls/hr IV .Q10H PRN; Protocol PRN Reason: TITRATE PER MD ORDER Last Titration: 05/15/18 09:00 Dose: 0 mg/hr, 0 mls/hr NOREPINEPHRINE BIT/0.9 % NACL (Levophed 4 Mg/ 250 Ml Ns Premixed) 4 mg in 250 mls @ 15 mls/hr IV .[id number] PRN; Protocol PRN Reason: TITRATE PER MD ORDER Last Titration: 05/13/18 12:00 Dose: 0 mcg/min, 0 mls/hr Fentanyl Citrate (Fentanyl Citrate/Sodium Chloride 1 Mg/100 Ml) 1,000 mcg in 100 mls @ 2 mls/hr IV .Q24H PRN; Protocol PRN Reason: TITRATE PER MD ORDER Last Titration: 05/15/18 19:00 Dose: 20 mcg/hr, 2 mls/hr Insulin Human Lispro (Humalog High) 0 units SC ACHS [facility]; Protocol Last Admin: 05/16/18 12:13 Dose: 10 u Levalbuterol HCl (Xopenex) 0.63 mg IH [id number] PRN PRN Reason: Shortness of Breath Last Admin: 05/15/18 02:05 Dose: 0.63 mg Levalbuterol HCl (Xopenex) 0.63 mg IH TIDRESP [facility] Last Admin: 05/16/18 13:51 Dose: 0.63 mg Methylprednisolone (Solu-Medrol) 40 mg IVP Q12 [facility] Last Admin: 05/16/18 09:47 Dose: 40 mg Pantoprazole Sodium (Protonix Inj) 40 mg IVP DAILY [facility] Last Admin: 05/16/18 09:52 Dose: 40 mg Sotalol HCl (Betapace) 40 mg PO BID [facility] Last Admin: 05/11/18 09:16 Dose: Not Given Verapamil HCl (Calan Tab) 40 mg PO TID [facility] Last Admin: 05/11/18 09:16 Dose: Not Given Verapamil HCl (Verapamil Inj) 2.5 mg IVP Q6 PRN PRN Reason: FOR HR GREATER THAN 130 Last Admin: 05/16/18 09:51 Dose: 2.5 mg - Labs Labs: 05/16/18 06:30 05/16/18 06:30 PT 14.0 SECONDS (9.4-12.5) H 05/15/18 20:43 INR 1.26 05/15/18 20:43 APTT 30.5 Seconds (26.9-38.3) 05/15/18 20:43 - Constitutional Appears: Chronically Ill, Other (intubated, sedated) - Head Exam Head Exam: NORMAL INSPECTION - ENT Exam Additional comments: ET tube in place - Respiratory Exam Respiratory Exam: Decreased Breath Sounds - Cardiovascular Exam Cardiovascular Exam: +S1, +S2 - GI/Abdominal Exam GI & Abdominal Exam: Soft. absent: Tenderness Assessment and Plan - Assessment and Plan (Free Text) Plan: Assessment hypoxic respiratory failure, with VDRF, with SIRS, R/O severe sepsis from hospital-acquired pneumonia on top of worsening lung cancer; new onset fever R/O Influenza S/P sepsis due to multifocal HCAP in this patient with stage 4 lung cancer, S/P confusion consider toxic-metabolic encephalopathy small cell lung cancer stage 4 on radiation and chemotherapy COPD atrial fibrillation gastritis Plan continue Vancomycin and Merrem day 12, added Mycamine - completed course of Tamiflu (5 days); repeat blood cx are negative - will consider discontinuing antibiotics in the next 24 hours patient's prognosis is very poor
[2018-05-17] MEDS: diltiaZEM IVPB 100mg in NS 100 ML IV PRN (13:21)
[2018-05-17] MEDS ORDERED: Propranolol 1 mg/mL Inj IV ONE (14:32)
[2018-05-17] MEDS ORDERED: Digoxin 500 mcg/2ml (0.5 mg/2ml) Inj IVP ONE (14:32)
--- NOTE | 2018-05-17 14:33 | CP.PCM.PN ---
<Anthony Chong - Last Filed: 05/17/18 14:33> Subjective - Date & Time of Evaluation Date of Evaluation: 05/17/18 Time of Evaluation: 14:31 - Subjective Subjective: PGY-2 heme/onc progress note for Dr Bullard No acute events noted overnight. Patient intubated and sedated. Pupils reactive +3, pulses palpable, + gag/cough. Flaccid no movement on extremities. ROS were not obtainable. Objective - Vital Signs/Intake and Output Vital Signs (last 24 hours): Temp Pulse Resp BP Pulse Ox 99.3 F 153 H 21 122/71 100 05/17/18 11:50 05/17/18 13:34 05/16/18 07:03 05/17/18 11:50 05/17/18 11:50 Intake and Output: 05/17/18 05/17/18 06:59 18:59 Intake Total 160 155 Balance 160 155 - Medications Medications: Current Medications Acetaminophen (Tylenol 650 Mg Supp) 650 mg RC Q6H PRN PRN Reason: Fever >100.4 F Last Admin: 05/10/18 20:55 Dose: 650 mg Acetaminophen (Tylenol 650mg/20.3ml Solution Ud) 650 mg NG Q6H PRN PRN Reason: FEVER > 100.4 Last Admin: 05/14/18 09:29 Dose: 650 mg Aspirin (Aspirin Chewable) 81 mg PO DAILY [facility] Last Admin: 05/17/18 10:24 Dose: 81 mg Budesonide (Pulmicort Respules) 0.5 mg IH [id number] [facility] Last Admin: 05/17/18 07:39 Dose: 0.5 mg Dextrose (Dextrose 50% Inj) 0 ml IV STAT PRN; Protocol PRN Reason: Hypoglycemia Protocol Diltiazem HCl (Cardizem Cd) 120 mg PO DAILY [facility] Last Admin: 05/07/18 11:16 Dose: Not Given Diltiazem HCl (Cardizem) 60 mg PO TID [facility] Last Admin: 05/17/18 13:41 Dose: 60 mg Hydromorphone HCl (Dilaudid) 0.5 mg IVP Q4H PRN PRN Reason: Pain, severe (8-10) Last Admin: 05/17/18 05:53 Dose: 0.5 mg Meropenem (Merrem Iv 1 Gm Premix) 1 gm in 50 mls @ 100 mls/hr IVPB Q8 [facility]; Protocol Last Admin: 05/17/18 13:41 Dose: 100 mls/hr Dexmedetomidine HCl (Precedex 400mcg/100ml) 400 mcg in 100 mls @ 3.357 mls/hr IV .Q24H PRN; Protocol PRN Reason: Sedation Last Admin: 05/17/18 01:07 Dose: 0.8 mcg/kg/hr, 13.426 mls/hr Dextrose (Dextrose 5% In Water 1000 Ml) 1,000 mls @ 0 mls/hr IV .Q0M PRN; Protocol PRN Reason: Hypoglycemia Protocol diltiaZEM IVPB 100mg in NS (Cardizem 100mg In Ns) 100 mls @ 10 mls/hr IV .Q10H PRN; Protocol PRN Reason: TITRATE PER MD ORDER Last Admin: 05/17/18 13:21 Dose: 20 mg/hr, 20 mls/hr NOREPINEPHRINE BIT/0.9 % NACL (Levophed 4 Mg/ 250 Ml Ns Premixed) 4 mg in 250 mls @ 15 mls/hr IV .[id number] PRN; Protocol PRN Reason: TITRATE PER MD ORDER Last Titration: 05/13/18 12:00 Dose: 0 mcg/min, 0 mls/hr Fentanyl Citrate (Fentanyl Citrate/Sodium Chloride 1 Mg/100 Ml) 1,000 mcg in 100 mls @ 2 mls/hr IV .Q24H PRN; Protocol PRN Reason: TITRATE PER MD ORDER Last Admin: 05/17/18 12:06 Dose: 50 mcg/hr, 5 mls/hr Insulin Human Lispro (Humalog High) 0 units SC Q6 [facility]ARI; Protocol Levalbuterol HCl (Xopenex) 0.63 mg IH [id number] PRN PRN Reason: Shortness of Breath Last Admin: 05/15/18 02:05 Dose: 0.63 mg Levalbuterol HCl (Xopenex) 0.63 mg IH TIDRESP [facility] Last Admin: 05/17/18 13:27 Dose: Not Given Methylprednisolone (Solu-Medrol) 40 mg IVP Q12 [facility] Last Admin: 05/17/18 10:24 Dose: 40 mg Pantoprazole Sodium (Protonix Inj) 40 mg IVP DAILY [facility] Last Admin: 05/17/18 10:24 Dose: 40 mg Sotalol HCl (Betapace) 40 mg PO BID [facility] Last Admin: 05/11/18 09:16 Dose: Not Given Verapamil HCl (Calan Tab) 40 mg PO TID [facility] Last Admin: 05/11/18 09:16 Dose: Not Given Verapamil HCl (Verapamil Inj) 2.5 mg IVP Q6 PRN PRN Reason: FOR HR GREATER THAN 130 Last Admin: 05/17/18 13:34 Dose: 2.5 mg - Labs Labs: 05/17/18 08:00 05/17/18 08:00 PT 14.0 SECONDS (9.4-12.5) H 05/15/18 20:43 INR 1.26 05/15/18 20:43 APTT 30.5 Seconds (26.9-38.3) 05/15/18 20:43 - Additional Findings Additional findings: - Constitutional Appears: Cachectic, Chronically Ill - Head Exam Head Exam: ATRAUMATIC, NORMAL INSPECTION - Eye Exam Eye Exam: EOMI, Normal appearance, PERRL. absent: Scleral icterus - ENT Exam ENT Exam: Mucous Membranes Moist - Respiratory Exam Respiratory Exam: Decreased Breath Sounds, occasionally breathing over vent. absent: Clear to Ausculation Bilateral - Cardiovascular Exam Cardiovascular Exam: Tachycardia, REGULAR RHYTHM, +S1, +S2. absent: Murmur - GI/Abdominal Exam GI & Abdominal Exam: Soft, Normal Bowel Sounds. 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 Patient was diagnosed with sepsis 2/2 to HCAP. On 05/05, patient became hypoxia and was in respiratory distress. Patient was intubated and sedated with propofol and versed. #History of small cell lung cancer stage 4 on radiation and chemotherapy -progression of disease from metastatic cancer vs aspiration pneumonia vs hospital-acquired pneumonic process in immuocompromised patient currently on systemic chemotherapy, completed six cycles of carboplatin and etoposide and then maintained on Tecentriq and also iridium, which is the bisphosphonate for metastatic disease in the bone -currently on Tecentriq * Tecentriq - 47% association with pneumonitis as complication of treatment * hoping for improvement on steroids - was on methyprednisolone 60mg ivp q6h now on 40mg ivp q12h -most recent PET CT scan ~3 weeks ago showed dramatic improvement in his disease -currently intubated and sedated - continue to maintain oxygen saturation and continue steroids - if condition does not improve in next 24 hours we will plan on supportive care alone -EEG - moderate to severe non-specific diffuse disturbance of cortical activity, no seizures, patient not in status epilepticus #SIRS, consider sepsis due to multifocal HCAP -CT of chest showed multifocal pneumonia. Patient completed 7 days of merrem and doxycycline on the floors. Now on vancomycin 1g q12h and merrem 1g q8h which has been stopped. He is currently not on any abx. ID Dr Urrutia has been consulted. -blood cx and flu negative #History of atrial fibrillation #NSTEMI -He released troponins, he also has AFib with RVR - he is on lovenox 60mg ivp q12h however this will be held tonight in light of recent bleeding - his home eliquis 5mg bid is on hold, he is also receiving aspirin 300mg rectally, he is on sotalol 40mg po bid, his cardizem is currently being held. He is currently on amio drip. He is currently on verapmail 40mg po tid and verapil 2.5mg ivp q6h prn. He is on lasix 40mg iv bid. Cardio Dr Orozco is consulted. #COPD -Per pulm recommendation - continue pulmicort 0.5mg ih q12h and xopenex 0.63mg ih q6h prn and scheduled. Dispo: Dr Bullard had a long discussion with family/palliative 05/16. The family would like to keep the treatment going for the next 3 days - after 3 days if no improvement they will consider DNR vs hospice. Seen and discussed with Dr Bullard <Anu Bullard P - Last Filed: 05/18/18 19:10> Objective - Vital Signs/Intake and Output Vital Signs (last 24 hours): Temp Pulse Resp BP Pulse Ox 97.5 F L 65 21 95/45 L 100 05/18/18 14:00 05/18/18 18:00 05/16/18 07:03 05/18/18 13:59 05/18/18 14:00 Intake and Output: 05/18/18 05/19/18 18:59 06:59 Intake Total 2824 Balance 2824 - Medications Medications: Current Medications Acetaminophen (Tylenol 650 Mg Supp) 650 mg RC Q6H PRN PRN Reason: Fever >100.4 F Last Admin: 05/10/18 20:55 Dose: 650 mg Acetaminophen (Tylenol 650mg/20.3ml Solution Ud) 650 mg NG Q6H PRN PRN Reason: FEVER > 100.4 Last Admin: 05/14/18 09:29 Dose: 650 mg Aspirin (Aspirin Chewable) 81 mg PO DAILY [facility] Last Admin: 05/18/18 10:38 Dose: 81 mg Budesonide (Pulmicort Respules) 0.5 mg IH [id number] [facility] Last Admin: 05/18/18 08:19 Dose: 0.5 mg Dextrose (Dextrose 50% Inj) 0 ml IV STAT PRN; Protocol PRN Reason: Hypoglycemia Protocol Dextrose (Dextrose 50% Inj) 0 ml IV STAT PRN; Protocol PRN Reason: Hypoglycemia Protocol Diltiazem HCl (Cardizem Cd) 120 mg PO DAILY [facility] Last Admin: 05/07/18 11:16 Dose: Not Given Hydromorphone HCl (Dilaudid) 0.5 mg IVP Q4H PRN PRN Reason: Pain, severe (8-10) Last Admin: 05/18/18 06:32 Dose: 0.5 mg Meropenem (Merrem Iv 1 Gm Premix) 1 gm in 50 mls @ 100 mls/hr IVPB Q8 [facility]; Protocol Last Admin: 05/18/18 14:38 Dose: 100 mls/hr Dexmedetomidine HCl (Precedex 400mcg/100ml) 400 mcg in 100 mls @ 3.357 mls/hr IV .Q24H PRN; Protocol PRN Reason: Sedation Last Titration: 05/17/18 22:54 Dose: 0 mcg/kg/hr, 0 mls/hr Dextrose (Dextrose 5% In Water 1000 Ml) 1,000 mls @ 0 mls/hr IV .Q0M PRN; Protocol PRN Reason: Hypoglycemia Protocol Fentanyl Citrate (Fentanyl Citrate/Sodium Chloride 1 Mg/100 Ml) 1,000 mcg in 100 mls @ 2 mls/hr IV .Q24H PRN; Protocol PRN Reason: TITRATE PER MD ORDER Last Admin: 05/18/18 11:26 Dose: 70 mcg/hr, 7 mls/hr Dextrose (Dextrose 5% In Water 1000 Ml) 1,000 mls @ 0 mls/hr IV .Q0M PRN; Protocol PRN Reason: Hypoglycemia Protocol Insulin Human Lispro (Humalog High) 0 units SC Q6 [facility]; Protocol Last Admin: 05/18/18 16:45 Dose: 7 unit Levalbuterol HCl (Xopenex) 0.63 mg IH [id number] PRN PRN Reason: Shortness of Breath Last Admin: 05/15/18 02:05 Dose: 0.63 mg Levalbuterol HCl (Xopenex) 0.63 mg IH TIDRESP [facility] Last Admin: 05/18/18 14:25 Dose: 0.63 mg Methylprednisolone (Solu-Medrol) 20 mg IVP Q12 [facility] Pantoprazole Sodium (Protonix Inj) 40 mg IVP DAILY [facility] Last Admin: 05/18/18 10:38 Dose: 40 mg Propranolol HCl (Inderal) 20 mg PO Q6H [facility] Last Admin: 05/18/18 16:44 Dose: 20 mg Sotalol HCl (Betapace) 40 mg PO BID [facility] Last Admin: 05/11/18 09:16 Dose: Not Given Verapamil HCl (Calan Tab) 40 mg PO TID [facility] Last Admin: 05/11/18 09:16 Dose: Not Given Verapamil HCl (Verapamil Inj) 2.5 mg IVP Q6 PRN PRN Reason: FOR HR GREATER THAN 130 Last Admin: 05/17/18 13:34 Dose: 2.5 mg - Labs Labs: 05/18/18 05:40 05/18/18 05:40 PT 14.0 SECONDS (9.4-12.5) H 05/15/18 20:43 INR 1.26 05/15/18 20:43 APTT 30.5 Seconds (26.9-38.3) 05/15/18 20:43 Attending/Attestation - Attestation I have personally seen and examined this patient.: Yes I have fully participated in the care of the patient.: Yes I have reviewed all pertinent clinical information, including history, physical exam and plan: Yes
[2018-05-17 15:02] VITALS: PULSE 149
--- NOTE | 2018-05-17 17:44 | PN ---
DATE: 05/17/2018 REASON FOR CONSULTATION AND FOLLOWUP: Status post respiratory failure, [id number] myocardial infarction, lung CA with metastasis, AFib with rapid ventricular rate, paroxysmal. The patient gets normal sinus rhythm with rapid AFib rate. SUBJECTIVE: The patient remains on the vent, on IV Cardizem, switched to p.o. but the patient went to rapid rate, started on IV Cardizem, now the patient converted to normal sinus. OBJECTIVE: GENERAL: He is still on vent and sedation. VITAL SIGNS: Temperature afebrile, heart rate 70, and blood pressure 123/71. HEENT: PERRLA. Extraocular muscles intact. NECK: Supple. No carotid bruits or thyromegaly. CHEST: Clear to auscultation. HEART: S1 and S2 regular. ABDOMEN: Soft. EXTREMITIES: Clubbing and cyanosis negative. LABORATORY DATA: Blood workup as follows: WBC 22.1, hemoglobin 7.8, hematocrit 27.8, and platelet count 104. Chemistry shows sodium 161, potassium 4.9, chloride 120, carbon dioxide 40, anion gap of 4, BUN 72, and creatinine 1.2. IMPRESSION: A 77-year-old male with past medical history significant for lung cancer with metastasis; history of atrial fibrillation, paroxysmal, goes into atrial flutter with rapid rate, then converted to normal sinus, then goes back into atrial flutter, remains intubated; respiratory failure, ventilator dependent. RECOMMENDATIONS: Strongly consider tracheostomy as prolonged intubation expected. Continue sedation. Continue IV Cardizem. Continue p.r.n. hydralazine. Overall, the patient's condition is critical. Long-term prognosis is guarded. Continue NG feeding. The patient was at one point severely hypoproteinemic and hypoalbuminemia, protein-calorie malnutrition, given 6 doses of IV albumin to increase the plasma on cardiac pressure and maintain the blood pressure. Now, the albumin is 2.5. Continue NG feeding. Continue free water, increase the water to 400 mL every 6 hours. Overall, the patient's condition is critical. Long-term prognosis is extremely guarded. As mentioned, if prolonged intubation which is likely, consider tracheostomy. Discussed with team taking care and the resident. We will increase free water through NG 400 mL every 6 hours from today. Continue IV Cardizem. Continue verapamil. Thank you Dr. Briggs for providing us the opportunity in taking care of the patient, Salvador Alvarenga. Aura Orozco MD
[2018-05-18] MEDS: HYDROmorphone 0.5 mg/0.5 ml ISec IVP PRN ×2 (02:16→06:32)
[2018-05-18] MEDS: Insulin Lispro (HUMAlog) HIGH Coverage SC SCH ×4 (05:47→16:45)
[2018-05-18] MEDS: Meropenem IV 1 gm in NS 1 GM/50 ML BAG IVPB SCH ×3 (06:31→22:22)
[2018-05-18 07:04] LABS: HEMOGLOBIN 8.3 g/dL (14.0-18.0); MEAN CELL VOLUME 106.8 fl (80.0-105.0); MEAN CORPUSCULAR HEMOGLOBIN 28.4 pg (25.0-35.0); MEAN CORPUSCULAR HGB CONC 26.6 g/dl (31.0-37.0); MEAN PLATELET VOLUME 12.7 fl (7.0-11.0); PLATELET COUNT 102 10^3/uL (120.0-450.0); RBC 2.92 10^6/uL (3.5-6.1); RED CELL DISTRIBUTION WIDTH 21.4 % (11.5-14.5)
[2018-05-18 07:28] LABS: ARTERIAL BLOOD GAS HCO3 38.3 mmol/L (21-28); ARTERIAL BLOOD GAS HEMOGLOBIN 8.5 g/dL (11.7-17.4); ARTERIAL BLOOD GAS O2 CAPACITY 11.6 mL/dl (16-24); ARTERIAL BLOOD GAS O2 CONTENT 11.1 ML/dl (15-23); ARTERIAL BLOOD GAS O2 SAT 96.1 % (95-98); ARTERIAL BLOOD GAS PCO2 71 mm/Hg (35-45); ARTERIAL BLOOD GAS PH 7.34 (7.35-7.45); ARTERIAL BLOOD GAS TCO2 40.5 mmol.L (22-28)
[2018-05-18 07:30] LABS: WHITE BLOOD COUNT 26.3 10^3/uL (4.5-11.0)
[2018-05-18] MEDS: Budesonide 0.5 mg/2 ml Inhal Susp UD IH SCH ×2 (08:19→19:43)
[2018-05-18] MEDS: Levalbuterol 0.63 MG/3 ML Inhal Soln UD IH SCH ×3 (08:20→19:43)
[2018-05-18 08:29] LABS: ALB/GLOB RATIO 1.1 (1.1-1.8); ALBUMIN 2.6 g/dL (3.0-4.8); CALCIUM 8.3 mg/dL (8.4-10.5)
[2018-05-18] MEDS ORDERED: Dextrose 50% SYRINGE Inj (50 ml) IV PRN (08:29)
[2018-05-18] MEDS ORDERED: Insulin Regular 1 UNITS/0.01 ML ML SC ONE (08:31)
[2018-05-18 08:35] LABS: MONOCYTE 2 % (1.0-6.0); NEUTROPHIL 98 % (50.0-70.0); NUCLEATED RED BLOOD CELL 4 %
[2018-05-18 08:40] LABS: ANISOCYTOSIS 2+; LARGE PLATELETS PRESENT; MICROCYTOSIS 1+; PLATELET ESTIMATE LOW (NORMAL); POIKILOCYTOSIS 1+; POLYCHROMASIA SLIGHT
[2018-05-18] MEDS ORDERED: Sodium Chloride 0.9% 1,000 ML IV SCH (09:15)
--- NOTE | 2018-05-18 09:50 | RAD ---
Date of service: 05/18/2018 HISTORY: Ventilator COMPARISON: No prior. FINDINGS: In situ ETT, tip of which lies approximately 7.3 cm above inga. In situ NGT, the distal aspect of which is coiled upon itself with tip of oriented superiorly in the expected location of the fundus of the stomach right IJ MediPort with tip in the SVC/RA junction unchanged LUNGS: Diffuse bilateral infiltrates with bilateral effusions right larger than left PLEURA: As above. No pneumothorax apparent. CARDIOVASCULAR: No aortic atherosclerotic calcification present. Heart size unchanged. OSSEOUS STRUCTURES: No significant abnormalities. VISUALIZED UPPER ABDOMEN: Normal. OTHER FINDINGS: None. IMPRESSION: Support lines and tubes as above. Diffuse bilateral infiltrates with bilateral effusions right larger than left.
[2018-05-18] MEDS: Fentanyl 1000mcg/100ml NS 1,000 MCG/100 ML BAG IV PRN (11:26)
--- NOTE | 2018-05-18 11:39 | CP.CCUPN ---
<Haley Mckeon - Last Filed: 05/18/18 11:28> CCU Subjective - Physician Review Subjective (Free Text): Haley Mckeon, PGY-1, ICU Progress Note for Dr. Aguilera Patient seen and evaluated at bedside. Patient had fluctuations of tachycardia and regular rhythm. Patient is currently intubated and sedated with vent settings of 450/20/12/100%. CCU Objective - Vital Signs / Intake & Output Intake and Output (Last 8hrs): Intake & Output 05/17/18 05/18/18 05/18/18 22:59 06:59 14:59 Intake Total 2130 Output Total 600 Balance 1530 Intake: IV 880 Right Subclavian 600 Tube Feeding 750 Other 500 Output: Urine 600 Urethral (Yang) 600 Other: Voiding Method Urinal # Bowel Movements 100 - Physical Exam Head: Positive for: Atraumatic, Normocephalic Pupils: Positive for: PERRL Extroacular Muscles: Positive for: EOMI Conjunctiva: Positive for: Normal Mouth: Positive for: Moist Mucous Membranes Neck: Positive for: Normal Range of Motion Respiratory/Chest: Positive for: Respiratory Distress, Wheezes, Rales, Other (currently on ventilator). Negative for: Accessory Muscle Use Cardiovascular: Positive for: Normal S1, S2, Irregular Rhythm. Negative for: Murmurs Abdomen: Negative for: Tenderness, Distention, Peritoneal Signs Back: Positive for: Normal Inspection Upper Extremity: Positive for: Normal Inspection. Negative for: Cyanosis, Edema Lower Extremity: Positive for: Normal Inspection. Negative for: Edema Neurological: Positive for: Other (intubated) Skin: Positive for: Warm, Dry, Normal Color, Other (R IJ central port noted). Negative for: Rashes - Medications Active Medications: Active Medications Generic Name Dose Route Start Last Admin Trade Name Freq PRN Reason Stop Dose Admin Acetaminophen 650 mg 05/10/18 20:29 05/10/18 20:55 Tylenol 650 Mg Supp RC 650 mg Q6H PRN Administration Fever >100.4 F Acetaminophen 650 mg 05/14/18 09:13 05/14/18 09:29 Tylenol 650mg/20.3ml Solution Ud NG 650 mg Q6H PRN Administration FEVER > 100.4 Aspirin 81 mg 05/12/18 11:30 05/18/18 10:38 Aspirin Chewable PO 81 mg DAILY ZARI Administration Budesonide 0.5 mg 04/27/18 20:00 05/18/18 08:19 Pulmicort Respules IH 0.5 mg [id number] ZARI Administration Dextrose 0 ml 05/09/18 10:48 Dextrose 50% Inj IV STAT PRN Hypoglycemia Protocol Protocol Dextrose 0 ml 05/18/18 08:29 Dextrose 50% Inj IV STAT PRN Hypoglycemia Protocol Protocol Diltiazem HCl 120 mg 04/27/18 10:00 05/07/18 11:16 Cardizem Cd PO Not Given DAILY ZARI Hydromorphone HCl 0.5 mg 05/13/18 00:26 05/18/18 06:32 Dilaudid IVP 0.5 mg Q4H PRN Administration Pain, severe (8-10) Meropenem 1 gm in 50 mls @ 100 mls/hr 05/05/18 15:15 05/18/18 06:31 Merrem Iv 1 Gm Premix IVPB 100 mls/hr Q8 ZARI Administration Protocol Dexmedetomidine HCl 400 mcg in 100 mls @ 3.357 mls/hr 05/09/18 10:31 05/17/18 22:54 Precedex 400mcg/100ml IV 0 mcg/kg/hr .Q24H PRN 0 mls/hr Sedation Titration Protocol 0.2 MCG/KG/HR Dextrose 1,000 mls @ 0 mls/hr 05/09/18 10:48 Dextrose 5% In Water 1000 Ml IV .Q0M PRN Hypoglycemia Protocol Protocol Per Protocol Fentanyl Citrate 1,000 mcg in 100 mls @ 2 mls/hr 05/14/18 16:24 05/17/18 22:07 Fentanyl Citrate/Sodium Chloride 1 Mg/100 Ml IV 70 mcg/hr .Q24H PRN 7 mls/hr TITRATE PER MD ORDER Administration Protocol 20 MCG/HR Dextrose 1,000 mls @ 0 mls/hr 05/18/18 08:29 Dextrose 5% In Water 1000 Ml IV .Q0M PRN Hypoglycemia Protocol Protocol Per Protocol Dextrose 1,000 mls @ 150 mls/hr 05/18/18 10:22 05/18/18 10:39 Dextrose 5% In Water 1000 Ml IV 05/18/18 15:57 150 mls/hr .Q6H40M STA Administration Insulin Human Lispro 0 units 05/17/18 18:00 05/18/18 06:31 Humalog High SC 3 unit Q6 ZARI Administration Protocol Levalbuterol HCl 0.63 mg 04/27/18 12:16 05/15/18 02:05 Xopenex IH 0.63 mg [id number] PRN Administration Shortness of Breath Levalbuterol HCl 0.63 mg 04/28/18 20:00 05/18/18 08:20 Xopenex IH 0.63 mg TIDRESP ZARI Administration Methylprednisolone 20 mg 05/18/18 10:23 Solu-Medrol IVP Q12 ZARI Pantoprazole Sodium 40 mg 05/09/18 10:00 05/18/18 10:38 Protonix Inj IVP 40 mg DAILY ZARI Administration Propranolol HCl 20 mg 05/18/18 09:15 05/18/18 10:39 Inderal PO 20 mg Q6H ZARI Administration Sotalol HCl 40 mg 05/09/18 10:00 05/11/18 09:16 Betapace PO Not Given BID ZARI Verapamil HCl 40 mg 05/10/18 14:00 05/11/18 09:16 Calan Tab PO Not Given TID ZARI Verapamil HCl 2.5 mg 05/10/18 12:31 05/17/18 13:34 Verapamil Inj IVP 2.5 mg Q6 PRN Administration FOR HR GREATER THAN 130 - Patient Studies Lab Studies: Microbiology Studies 05/13/18 10:05 Blood Culture - Final Blood NO GROWTH AFTER 5 DAYS Gram Stain - Final TEST NOT PERFORMED 05/13/18 09:25 Blood Culture - Final Blood NO GROWTH AFTER 5 DAYS Gram Stain - Final TEST NOT PERFORMED Lab Studies 05/18/18 05/18/18 05/18/18 Range/Units 08:01 07:20 06:01 WBC (4.5-11.0) 10^3/uL RBC (3.5-6.1) 10^6/uL Hgb (14.0-18.0) g/dL Hct (42.0-52.0) % MCV (80.0-105.0) fl MCH (25.0-35.0) pg MCHC (31.0-37.0) g/dl RDW (11.5-14.5) % Plt Count (120.0-450.0) 10^3/uL MPV (7.0-11.0) fl Neutrophils % (Manual) (50.0-70.0) % Lymphocytes % (Manual) Monocytes % (Manual) (1.0-6.0) % Nucleated RBC % % Platelet Evaluation (NORMAL) Large Platelets Polychromasia Poikilocytosis (manual Anisocytosis (manual) Microcytosis (manual) Macrocytosis (manual) pCO2 71 H* (35-45) mm/Hg pO2 68.0 L (80-100) mm/Hg HCO3 38.3 H (21-28) mmol/L ABG pH 7.34 L (7.35-7.45) ABG Total CO2 40.5 H (22-28) mmol.L ABG O2 Saturation 96.1 (95-98) % ABG O2 Content 11.1 L (15-23) ML/dl ABG Base Excess 10.8 H (-2.0-3.0) mmol/L ABG Hemoglobin 8.5 L (11.7-17.4) g/dL ABG Carboxyhemoglobin 3.2 H (0.5-1.5) % POC ABG HHb (Measured) 3.7 (0-5) % ABG Methemoglobin 1.3 (0.0-3.0) % ABG O2 Capacity 11.6 L (16-24) mL/dl Hgb O2 Saturation 91.8 L (95.0-98.0) % FiO2 100.0 % Crit Value Called To Zena wells rn Crit Value Called By 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 Blood Gas Notified Time 728 Sodium (132-148) mmol/L Potassium (3.6-5.0) mmol/L Chloride (98-107) mmol/L Carbon Dioxide (21-33) mmol/L Anion Gap (10-20) BUN (7-21) mg/dL Creatinine (0.8-1.5) mg/dl Est GFR ( Amer) Est GFR (Non-Af Amer) POC Glucose (mg/dL) 294 H 323 H (65-110) mg/dL Random Glucose (70-110) mg/dL Calcium (8.4-10.5) mg/dL Total Bilirubin (0.2-1.3) mg/dL AST (17-59) U/L ALT (7-56) U/L Alkaline Phosphatase (38-126) U/L Total Protein (5.8-8.3) g/dL Albumin (3.0-4.8) g/dL Globulin gm/dL Albumin/Globulin Ratio (1.1-1.8) 05/18/18 05/18/18 05/18/18 Range/Units 05:40 05:40 00:11 WBC 26.3 H* (4.5-11.0) 10^3/uL RBC 2.92 L (3.5-6.1) 10^6/uL Hgb 8.3 L (14.0-18.0) g/dL Hct 31.2 L (42.0-52.0) % MCV 106.8 H (80.0-105.0) fl MCH 28.4 (25.0-35.0) pg MCHC 26.6 L (31.0-37.0) g/dl RDW 21.4 H (11.5-14.5) % Plt Count 102 L (120.0-450.0) 10^3/uL MPV 12.7 H (7.0-11.0) fl Neutrophils % (Manual) 98 H (50.0-70.0) % Lymphocytes % (Manual) TEST NOT PERFORMED Monocytes % (Manual) 2 (1.0-6.0) % Nucleated RBC % 4 % Platelet Evaluation Low (NORMAL) Large Platelets Present Polychromasia Slight Poikilocytosis (manual 1+ Anisocytosis (manual) 2+ Microcytosis (manual) 1+ Macrocytosis (manual) 1+ pCO2 (35-45) mm/Hg pO2 (80-100) mm/Hg HCO3 (21-28) mmol/L ABG pH (7.35-7.45) ABG Total CO2 (22-28) mmol.L ABG O2 Saturation (95-98) % ABG O2 Content (15-23) ML/dl ABG Base Excess (-2.0-3.0) mmol/L ABG Hemoglobin (11.7-17.4) g/dL ABG Carboxyhemoglobin (0.5-1.5) % POC ABG HHb (Measured) (0-5) % ABG Methemoglobin (0.0-3.0) % ABG O2 Capacity (16-24) mL/dl Hgb O2 Saturation (95.0-98.0) % FiO2 % Crit Value Called To Crit Value Called By Blood Gas Notified Time Sodium 159 H* (132-148) mmol/L Potassium 5.6 H* (3.6-5.0) mmol/L Chloride 121 H (98-107) mmol/L Carbon Dioxide 40 H (21-33) mmol/L Anion Gap 3 L (10-20) BUN 87 H (7-21) mg/dL Creatinine 1.5 (0.8-1.5) mg/dl Est GFR ( Amer) 55 Est GFR (Non-Af Amer) 46 POC Glucose (mg/dL) 181 H (65-110) mg/dL Random Glucose 255 H (70-110) mg/dL Calcium 8.3 L (8.4-10.5) mg/dL Total Bilirubin 1.0 (0.2-1.3) mg/dL AST 100 H D (17-59) U/L ALT 156 H (7-56) U/L Alkaline Phosphatase 182 H (38-126) U/L Total Protein 4.9 L (5.8-8.3) g/dL Albumin 2.6 L (3.0-4.8) g/dL Globulin 2.3 gm/dL Albumin/Globulin Ratio 1.1 (1.1-1.8) 05/17/18 Range/Units 16:27 WBC (4.5-11.0) 10^3/uL RBC (3.5-6.1) 10^6/uL Hgb (14.0-18.0) g/dL Hct (42.0-52.0) % MCV (80.0-105.0) fl MCH (25.0-35.0) pg MCHC (31.0-37.0) g/dl RDW (11.5-14.5) % Plt Count (120.0-450.0) 10^3/uL MPV (7.0-11.0) fl Neutrophils % (Manual) (50.0-70.0) % Lymphocytes % (Manual) Monocytes % (Manual) (1.0-6.0) % Nucleated RBC % % Platelet Evaluation (NORMAL) Large Platelets Polychromasia Poikilocytosis (manual Anisocytosis (manual) Microcytosis (manual) Macrocytosis (manual) pCO2 (35-45) mm/Hg pO2 (80-100) mm/Hg HCO3 (21-28) mmol/L ABG pH (7.35-7.45) ABG Total CO2 (22-28) mmol.L ABG O2 Saturation (95-98) % ABG O2 Content (15-23) ML/dl ABG Base Excess (-2.0-3.0) mmol/L ABG Hemoglobin (11.7-17.4) g/dL ABG Carboxyhemoglobin (0.5-1.5) % POC ABG HHb (Measured) (0-5) % ABG Methemoglobin (0.0-3.0) % ABG O2 Capacity (16-24) mL/dl Hgb O2 Saturation (95.0-98.0) % FiO2 % Crit Value Called To Crit Value Called By Blood Gas Notified Time Sodium (132-148) mmol/L Potassium (3.6-5.0) mmol/L Chloride (98-107) mmol/L Carbon Dioxide (21-33) mmol/L Anion Gap (10-20) BUN (7-21) mg/dL Creatinine (0.8-1.5) mg/dl Est GFR ( Amer) Est GFR (Non-Af Amer) POC Glucose (mg/dL) 254 H (65-110) mg/dL Random Glucose (70-110) mg/dL Calcium (8.4-10.5) mg/dL Total Bilirubin (0.2-1.3) mg/dL AST (17-59) U/L ALT (7-56) U/L Alkaline Phosphatase (38-126) U/L Total Protein (5.8-8.3) g/dL Albumin (3.0-4.8) g/dL Globulin gm/dL Albumin/Globulin Ratio (1.1-1.8) Laboratory Results - last 24 hr 05/17/18 05/18/18 05/18/18 16:27 00:11 05:40 WBC 26.3 H* RBC 2.92 L Hgb 8.3 L Hct 31.2 L MCV 106.8 H MCH 28.4 MCHC 26.6 L RDW 21.4 H Plt Count 102 L MPV 12.7 H Neutrophils % (Manual) 98 H Lymphocytes % (Manual) TEST NOT PERFORMED Monocytes % (Manual) 2 Nucleated RBC % 4 Platelet Evaluation Low Large Platelets Present Polychromasia Slight Poikilocytosis (manual 1+ Anisocytosis (manual) 2+ Microcytosis (manual) 1+ Macrocytosis (manual) 1+ pCO2 pO2 HCO3 ABG pH ABG Total CO2 ABG O2 Saturation ABG O2 Content ABG Base Excess ABG Hemoglobin ABG Carboxyhemoglobin POC ABG HHb (Measured) ABG Methemoglobin ABG O2 Capacity Hgb O2 Saturation FiO2 Crit Value Called To Crit Value Called By Blood Gas Notified Time Sodium Potassium Chloride Carbon Dioxide Anion Gap BUN Creatinine Est GFR ( Amer) Est GFR (Non-Af Amer) POC Glucose (mg/dL) 254 H 181 H Random Glucose Calcium Total Bilirubin AST ALT Alkaline Phosphatase Total Protein Albumin Globulin Albumin/Globulin Ratio 05/18/18 05/18/18 05/18/18 05:40 06:01 07:20 WBC RBC Hgb Hct MCV MCH MCHC RDW Plt Count MPV Neutrophils % (Manual) Lymphocytes % (Manual) Monocytes % (Manual) Nucleated RBC % Platelet Evaluation Large Platelets Polychromasia Poikilocytosis (manual Anisocytosis (manual) Microcytosis (manual) Macrocytosis (manual) pCO2 71 H* pO2 68.0 L HCO3 38.3 H ABG pH 7.34 L ABG Total CO2 40.5 H ABG O2 Saturation 96.1 ABG O2 Content 11.1 L ABG Base Excess 10.8 H ABG Hemoglobin 8.5 L ABG Carboxyhemoglobin 3.2 H POC ABG HHb (Measured) 3.7 ABG Methemoglobin 1.3 ABG O2 Capacity 11.6 L Hgb O2 Saturation 91.8 L FiO2 100.0 Crit Value Called To Zena wells rn Crit Value Called By 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 Blood Gas Notified Time 728 Sodium 159 H* Potassium 5.6 H* Chloride 121 H Carbon Dioxide 40 H Anion Gap 3 L BUN 87 H Creatinine 1.5 Est GFR ( Amer) 55 Est GFR (Non-Af Amer) 46 POC Glucose (mg/dL) 323 H Random Glucose 255 H Calcium 8.3 L Total Bilirubin 1.0 AST 100 H D ALT 156 H Alkaline Phosphatase 182 H Total Protein 4.9 L Albumin 2.6 L Globulin 2.3 Albumin/Globulin Ratio 1.1 05/18/18 08:01 WBC RBC Hgb Hct MCV MCH MCHC RDW Plt Count MPV Neutrophils % (Manual) Lymphocytes % (Manual) Monocytes % (Manual) Nucleated RBC % Platelet Evaluation Large Platelets Polychromasia Poikilocytosis (manual Anisocytosis (manual) Microcytosis (manual) Macrocytosis (manual) pCO2 pO2 HCO3 ABG pH ABG Total CO2 ABG O2 Saturation ABG O2 Content ABG Base Excess ABG Hemoglobin ABG Carboxyhemoglobin POC ABG HHb (Measured) ABG Methemoglobin ABG O2 Capacity Hgb O2 Saturation FiO2 Crit Value Called To Crit Value Called By Blood Gas Notified Time Sodium Potassium Chloride Carbon Dioxide Anion Gap BUN Creatinine Est GFR ( Amer) Est GFR (Non-Af Amer) POC Glucose (mg/dL) 294 H Random Glucose Calcium Total Bilirubin AST ALT Alkaline Phosphatase Total Protein Albumin Globulin Albumin/Globulin Ratio Radiology Impressions: Radiology Impressions Chest X-Ray 05/18/18 05:00 IMPRESSION: Support lines and tubes as above. Diffuse bilateral infiltrates with bilateral effusions right larger than left. 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 Patient has failed multiple weaning trials and prognosis is critical. Plan: Neuro: S/p intubation for hypoxic repsiratory failure -Intubated on 05/05/18, currently sedated on precedex and fentanyl -Head CT w/o contrast on 05/10/18 showed no acute intracranial abnormalities -EEG on 05/11/18 showed abnormal EEG record that demonstrate the presence of moderate to severe non specific diffuse disturbance of cortical activity, findings are not specific. No seizures. Patient is not in status epilepticus. Cardio: Atrial flutter -EKG 05/10: Atrial flutter with 2:1 AV block with HR: 156 -Cardizem drip restarted due to tachycardia in the 160s. -Stopped cardizem and started on propanolol as per Cardiology. -Maintain MAP>65. NSTEMI -EKG 05/10: Atrial flutter with 2:1 AV block with HR: 156 -Troponin: 05/06/09 10.9, 9.66, 8.96, 6.33 -Continue Aspirin 81mg, topical nitroglycerin q6 Elevated BNP -BNP: 3240, BNP pending for today. Consider diastolic CHF -Echocardiogram 05/07: EF: 49.3%, trace AR, MR, RVSP: 50 -Stopped lasix drip as patient has been tachycardic. Patient is likely dry and has been given boluses of NS with moderate improvement in heart rate. Pulm/Oncology Hypoxic respiratory failure 2/2 to ARDS from small cell lung carcinoma vs. pneumonitis -Patient intubated and sedated with settings 450/20/12/100% -Maintain O2 saturation>90%. ABG 05/17 shows pH: 7.34, pCO2: 71, and pO2: 68 which is worsened from yesterday. Increased RR -CXR: worsened today. diffuse bilateral infiltrates with bilateral effusions with right larger than left -As per Dr. Bullard, Heme/Onc, patient has possible pneumonitis as complication of Tecentriq treatment for SCLC -Treat Tecentriq side effect with solumedrol 20 mg Q12 -Recent PET CT shows improvement in small cell lung carcinoma -Weaning and sedation trials, Elevate bed to 30 degrees, oral protective hygiene daily, conservative fluid management COPD -Continue with Pulmicort 0.5 mg IH Q12, and xopenex 0.63 mg IH TID, solumedrol 20 mg Q12 GI: Elevated LFTs -improved today, consider dehydration vs congestive hepatopathy, will continue to trend Diet -continue jevity feedings Prophylaxis -Protonix 40 mg IV daily /Nephro: -BUN/Cr worsened today. Possibly due to MODS -Started D5W at 150 cc/hr and stopped Bicarbonate drip due to improvement of bicarbonate to 23 on CMP and improvement of pH on ABG -Maintain euvolemia -Replace electrolytes as necessary ID: Multifocal pneumonia -CXR: worsened today. diffuse bilateral infiltrates with bilateral effusions with right larger than left -Chest CT 04/27: multifocal pneumonia -Afebrile, WBC is 26.3 from 22.1, uptrending -Blood culture was negative for 5 days upon admission from 05/09. Blood culture reordered was negative for 5 days. -Negative urine culture, tracheal aspiration culture, C. Dif stool toxin -Procal 05/05: 0.55. Repeat procal was 0.62 on 05/09/18 -Vancomycin 1 gm Q12 day 13, Merrem 1 gm Q8 day 13, Nystatin 5 mg QID Endocrinology: -Random glucose: 255 -HgbA1c: 6.2 -High SSI -Continue with high dose sliding scale insulin with target glucose 140-180 Heme Anemia -Hg is 8.3 from 7.8 yesterday DVT prophylaxis -SCD Disposition: Patient prognosis is critical. Per families wishes, patient to remain full code at this time. If family continues full code status, discussion should be started about transitioning patient to LTAC facility for further management and care. Patient seen and examined with Dr. Aguilera. - Date & Time Date: 05/18/18 Time: 11:29 <Fausto Aguilera - Last Filed: 05/18/18 14:41> CCU Objective - Vital Signs / Intake & Output Vital Signs (Last 4 hours): Vital Signs Temp Pulse BP Pulse Ox 05/18/18 14:00 97.5 F L 64 100 05/18/18 13:59 97.5 F L 62 95/45 L 100 05/18/18 13:29 97.5 F L 64 107/55 L 100 05/18/18 13:00 122/46 L 05/18/18 12:59 97.5 F L 63 82/42 L 100 05/18/18 12:29 97.5 F L 63 92/45 L 100 05/18/18 12:00 97.5 F L 65 140/53 L 100 05/18/18 11:59 97.5 F L 65 90/44 L 100 05/18/18 11:29 97.5 F L 70 96/45 L 100 05/18/18 11:00 125/46 L 05/18/18 10:59 97.5 F L 82 103/49 L 100 05/18/18 10:50 97.5 F L 79 99 Intake and Output (Last 8hrs): Intake & Output 05/17/18 05/18/18 05/18/18 22:59 06:59 14:59 Intake Total 2130 100 Output Total 600 Balance 1530 100 Intake: IV 880 100 Right Subclavian 600 Tube Feeding 750 Other 500 Output: Urine 600 Urethral (Yang) 600 Other: Voiding Method Urinal Indwelling Catheter # Bowel Movements 100 - Medications Active Medications: Active Medications Generic Name Dose Route Start Last Admin Trade Name Freq PRN Reason Stop Dose Admin Acetaminophen 650 mg 05/10/18 20:29 05/10/18 20:55 Tylenol 650 Mg Supp RC 650 mg Q6H PRN Administration Fever >100.4 F Acetaminophen 650 mg 05/14/18 09:13 05/14/18 09:29 Tylenol 650mg/20.3ml Solution Ud NG 650 mg Q6H PRN Administration FEVER > 100.4 Aspirin 81 mg 05/12/18 11:30 05/18/18 10:38 Aspirin Chewable PO 81 mg DAILY ZARI Administration Budesonide 0.5 mg 04/27/18 20:00 05/18/18 08:19 Pulmicort Respules IH 0.5 mg [id number] ZARI Administration Dextrose 0 ml 05/09/18 10:48 Dextrose 50% Inj IV STAT PRN Hypoglycemia Protocol Protocol Dextrose 0 ml 05/18/18 08:29 Dextrose 50% Inj IV STAT PRN Hypoglycemia Protocol Protocol Diltiazem HCl 120 mg 04/27/18 10:00 05/07/18 11:16 Cardizem Cd PO Not Given DAILY ZARI Hydromorphone HCl 0.5 mg 05/13/18 00:26 05/18/18 06:32 Dilaudid IVP 0.5 mg Q4H PRN Administration Pain, severe (8-10) Meropenem 1 gm in 50 mls @ 100 mls/hr 05/05/18 15:15 05/18/18 06:31 Merrem Iv 1 Gm Premix IVPB 100 mls/hr Q8 ZARI Administration Protocol Dexmedetomidine HCl 400 mcg in 100 mls @ 3.357 mls/hr 05/09/18 10:31 05/17/18 22:54 Precedex 400mcg/100ml IV 0 mcg/kg/hr .Q24H PRN 0 mls/hr Sedation Titration Protocol 0.2 MCG/KG/HR Dextrose 1,000 mls @ 0 mls/hr 05/09/18 10:48 Dextrose 5% In Water 1000 Ml IV .Q0M PRN Hypoglycemia Protocol Protocol Per Protocol Fentanyl Citrate 1,000 mcg in 100 mls @ 2 mls/hr 05/14/18 16:24 05/18/18 11:26 Fentanyl Citrate/Sodium Chloride 1 Mg/100 Ml IV 70 mcg/hr .Q24H PRN 7 mls/hr TITRATE PER MD ORDER Administration Protocol 20 MCG/HR Dextrose 1,000 mls @ 0 mls/hr 05/18/18 08:29 Dextrose 5% In Water 1000 Ml IV .Q0M PRN Hypoglycemia Protocol Protocol Per Protocol Dextrose 1,000 mls @ 150 mls/hr 05/18/18 10:22 05/18/18 10:39 Dextrose 5% In Water 1000 Ml IV 05/18/18 15:57 150 mls/hr .Q6H40M STA Administration Insulin Human Lispro 0 units 05/17/18 18:00 05/18/18 12:52 Humalog High SC 7 unit Q6 ZARI Administration Protocol Levalbuterol HCl 0.63 mg 04/27/18 12:16 05/15/18 02:05 Xopenex IH 0.63 mg [id number] PRN Administration Shortness of Breath Levalbuterol HCl 0.63 mg 04/28/18 20:00 05/18/18 14:25 Xopenex IH 0.63 mg TIDRESP ZARI Administration Methylprednisolone 20 mg 05/18/18 10:23 Solu-Medrol IVP Q12 ZARI Pantoprazole Sodium 40 mg 05/09/18 10:00 05/18/18 10:38 Protonix Inj IVP 40 mg DAILY ZARI Administration Propranolol HCl 20 mg 05/18/18 09:15 05/18/18 10:39 Inderal PO 20 mg Q6H ZARI Administration Sotalol HCl 40 mg 05/09/18 10:00 05/11/18 09:16 Betapace PO Not Given BID ZARI Verapamil HCl 40 mg 05/10/18 14:00 05/11/18 09:16 Calan Tab PO Not Given TID ZARI Verapamil HCl 2.5 mg 05/10/18 12:31 05/17/18 13:34 Verapamil Inj IVP 2.5 mg Q6 PRN Administration FOR HR GREATER THAN 130 - Patient Studies Lab Studies: Microbiology Studies 05/13/18 10:05 Blood Culture - Final Blood NO GROWTH AFTER 5 DAYS Gram Stain - Final TEST NOT PERFORMED 05/13/18 09:25 Blood Culture - Final Blood NO GROWTH AFTER 5 DAYS Gram Stain - Final TEST NOT PERFORMED Lab Studies 05/18/18 05/18/18 05/18/18 Range/Units 08:01 07:20 06:01 WBC (4.5-11.0) 10^3/uL RBC (3.5-6.1) 10^6/uL Hgb (14.0-18.0) g/dL Hct (42.0-52.0) % MCV (80.0-105.0) fl MCH (25.0-35.0) pg MCHC (31.0-37.0) g/dl RDW (11.5-14.5) % Plt Count (120.0-450.0) 10^3/uL MPV (7.0-11.0) fl Neutrophils % (Manual) (50.0-70.0) % Lymphocytes % (Manual) Monocytes % (Manual) (1.0-6.0) % Nucleated RBC % % Platelet Evaluation (NORMAL) Large Platelets Polychromasia Poikilocytosis (manual Anisocytosis (manual) Microcytosis (manual) Macrocytosis (manual) pCO2 71 H* (35-45) mm/Hg pO2 68.0 L (80-100) mm/Hg HCO3 38.3 H (21-28) mmol/L ABG pH 7.34 L (7.35-7.45) ABG Total CO2 40.5 H (22-28) mmol.L ABG O2 Saturation 96.1 (95-98) % ABG O2 Content 11.1 L (15-23) ML/dl ABG Base Excess 10.8 H (-2.0-3.0) mmol/L ABG Hemoglobin 8.5 L (11.7-17.4) g/dL ABG Carboxyhemoglobin 3.2 H (0.5-1.5) % POC ABG HHb (Measured) 3.7 (0-5) % ABG Methemoglobin 1.3 (0.0-3.0) % ABG O2 Capacity 11.6 L (16-24) mL/dl Hgb O2 Saturation 91.8 L (95.0-98.0) % FiO2 100.0 % Crit Value Called To Zena wells rn Crit Value Called By 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 Blood Gas Notified Time 728 Sodium (132-148) mmol/L Potassium (3.6-5.0) mmol/L Chloride (98-107) mmol/L Carbon Dioxide (21-33) mmol/L Anion Gap (10-20) BUN (7-21) mg/dL Creatinine (0.8-1.5) mg/dl Est GFR ( Amer) Est GFR (Non-Af Amer) POC Glucose (mg/dL) 294 H 323 H (65-110) mg/dL Random Glucose (70-110) mg/dL Calcium (8.4-10.5) mg/dL Total Bilirubin (0.2-1.3) mg/dL AST (17-59) U/L ALT (7-56) U/L Alkaline Phosphatase (38-126) U/L Total Protein (5.8-8.3) g/dL Albumin (3.0-4.8) g/dL Globulin gm/dL Albumin/Globulin Ratio (1.1-1.8) 05/18/18 05/18/18 05/18/18 Range/Units 05:40 05:40 00:11 WBC 26.3 H* (4.5-11.0) 10^3/uL RBC 2.92 L (3.5-6.1) 10^6/uL Hgb 8.3 L (14.0-18.0) g/dL Hct 31.2 L (42.0-52.0) % MCV 106.8 H (80.0-105.0) fl MCH 28.4 (25.0-35.0) pg MCHC 26.6 L (31.0-37.0) g/dl RDW 21.4 H (11.5-14.5) % Plt Count 102 L (120.0-450.0) 10^3/uL MPV 12.7 H (7.0-11.0) fl Neutrophils % (Manual) 98 H (50.0-70.0) % Lymphocytes % (Manual) TEST NOT PERFORMED Monocytes % (Manual) 2 (1.0-6.0) % Nucleated RBC % 4 % Platelet Evaluation Low (NORMAL) Large Platelets Present Polychromasia Slight Poikilocytosis (manual 1+ Anisocytosis (manual) 2+ Microcytosis (manual) 1+ Macrocytosis (manual) 1+ pCO2 (35-45) mm/Hg pO2 (80-100) mm/Hg HCO3 (21-28) mmol/L ABG pH (7.35-7.45) ABG Total CO2 (22-28) mmol.L ABG O2 Saturation (95-98) % ABG O2 Content (15-23) ML/dl ABG Base Excess (-2.0-3.0) mmol/L ABG Hemoglobin (11.7-17.4) g/dL ABG Carboxyhemoglobin (0.5-1.5) % POC ABG HHb (Measured) (0-5) % ABG Methemoglobin (0.0-3.0) % ABG O2 Capacity (16-24) mL/dl Hgb O2 Saturation (95.0-98.0) % FiO2 % Crit Value Called To Crit Value Called By Blood Gas Notified Time Sodium 159 H* (132-148) mmol/L Potassium 5.6 H* (3.6-5.0) mmol/L Chloride 121 H (98-107) mmol/L Carbon Dioxide 40 H (21-33) mmol/L Anion Gap 3 L (10-20) BUN 87 H (7-21) mg/dL Creatinine 1.5 (0.8-1.5) mg/dl Est GFR ( Amer) 55 Est GFR (Non-Af Amer) 46 POC Glucose (mg/dL) 181 H (65-110) mg/dL Random Glucose 255 H (70-110) mg/dL Calcium 8.3 L (8.4-10.5) mg/dL Total Bilirubin 1.0 (0.2-1.3) mg/dL AST 100 H D (17-59) U/L ALT 156 H (7-56) U/L Alkaline Phosphatase 182 H (38-126) U/L Total Protein 4.9 L (5.8-8.3) g/dL Albumin 2.6 L (3.0-4.8) g/dL Globulin 2.3 gm/dL Albumin/Globulin Ratio 1.1 (1.1-1.8) 05/17/18 Range/Units 16:27 WBC (4.5-11.0) 10^3/uL RBC (3.5-6.1) 10^6/uL Hgb (14.0-18.0) g/dL Hct (42.0-52.0) % MCV (80.0-105.0) fl MCH (25.0-35.0) pg MCHC (31.0-37.0) g/dl RDW (11.5-14.5) % Plt Count (120.0-450.0) 10^3/uL MPV (7.0-11.0) fl Neutrophils % (Manual) (50.0-70.0) % Lymphocytes % (Manual) Monocytes % (Manual) (1.0-6.0) % Nucleated RBC % % Platelet Evaluation (NORMAL) Large Platelets Polychromasia Poikilocytosis (manual Anisocytosis (manual) Microcytosis (manual) Macrocytosis (manual) pCO2 (35-45) mm/Hg pO2 (80-100) mm/Hg HCO3 (21-28) mmol/L ABG pH (7.35-7.45) ABG Total CO2 (22-28) mmol.L ABG O2 Saturation (95-98) % ABG O2 Content (15-23) ML/dl ABG Base Excess (-2.0-3.0) mmol/L ABG Hemoglobin (11.7-17.4) g/dL ABG Carboxyhemoglobin (0.5-1.5) % POC ABG HHb (Measured) (0-5) % ABG Methemoglobin (0.0-3.0) % ABG O2 Capacity (16-24) mL/dl Hgb O2 Saturation (95.0-98.0) % FiO2 % Crit Value Called To Crit Value Called By Blood Gas Notified Time Sodium (132-148) mmol/L Potassium (3.6-5.0) mmol/L Chloride (98-107) mmol/L Carbon Dioxide (21-33) mmol/L Anion Gap (10-20) BUN (7-21) mg/dL Creatinine (0.8-1.5) mg/dl Est GFR ( Amer) Est GFR (Non-Af Amer) POC Glucose (mg/dL) 254 H (65-110) mg/dL Random Glucose (70-110) mg/dL Calcium (8.4-10.5) mg/dL Total Bilirubin (0.2-1.3) mg/dL AST (17-59) U/L ALT (7-56) U/L Alkaline Phosphatase (38-126) U/L Total Protein (5.8-8.3) g/dL Albumin (3.0-4.8) g/dL Globulin gm/dL Albumin/Globulin Ratio (1.1-1.8) Laboratory Results - last 24 hr 05/17/18 05/18/18 05/18/18 16:27 00:11 05:40 WBC 26.3 H* RBC 2.92 L Hgb 8.3 L Hct 31.2 L MCV 106.8 H MCH 28.4 MCHC 26.6 L RDW 21.4 H Plt Count 102 L MPV 12.7 H Neutrophils % (Manual) 98 H Lymphocytes % (Manual) TEST NOT PERFORMED Monocytes % (Manual) 2 Nucleated RBC % 4 Platelet Evaluation Low Large Platelets Present Polychromasia Slight Poikilocytosis (manual 1+ Anisocytosis (manual) 2+ Microcytosis (manual) 1+ Macrocytosis (manual) 1+ pCO2 pO2 HCO3 ABG pH ABG Total CO2 ABG O2 Saturation ABG O2 Content ABG Base Excess ABG Hemoglobin ABG Carboxyhemoglobin POC ABG HHb (Measured) ABG Methemoglobin ABG O2 Capacity Hgb O2 Saturation FiO2 Crit Value Called To Crit Value Called By Blood Gas Notified Time Sodium Potassium Chloride Carbon Dioxide Anion Gap BUN Creatinine Est GFR ( Amer) Est GFR (Non-Af Amer) POC Glucose (mg/dL) 254 H 181 H Random Glucose Calcium Total Bilirubin AST ALT Alkaline Phosphatase Total Protein Albumin Globulin Albumin/Globulin Ratio 05/18/18 05/18/18 05/18/18 05:40 06:01 07:20 WBC RBC Hgb Hct MCV MCH MCHC RDW Plt Count MPV Neutrophils % (Manual) Lymphocytes % (Manual) Monocytes % (Manual) Nucleated RBC % Platelet Evaluation Large Platelets Polychromasia Poikilocytosis (manual Anisocytosis (manual) Microcytosis (manual) Macrocytosis (manual) pCO2 71 H* pO2 68.0 L HCO3 38.3 H ABG pH 7.34 L ABG Total CO2 40.5 H ABG O2 Saturation 96.1 ABG O2 Content 11.1 L ABG Base Excess 10.8 H ABG Hemoglobin 8.5 L ABG Carboxyhemoglobin 3.2 H POC ABG HHb (Measured) 3.7 ABG Methemoglobin 1.3 ABG O2 Capacity 11.6 L Hgb O2 Saturation 91.8 L FiO2 100.0 Crit Value Called To Zena wells rn Crit Value Called By 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 Blood Gas Notified Time 728 Sodium 159 H* Potassium 5.6 H* Chloride 121 H Carbon Dioxide 40 H Anion Gap 3 L BUN 87 H Creatinine 1.5 Est GFR ( Amer) 55 Est GFR (Non-Af Amer) 46 POC Glucose (mg/dL) 323 H Random Glucose 255 H Calcium 8.3 L Total Bilirubin 1.0 AST 100 H D ALT 156 H Alkaline Phosphatase 182 H Total Protein 4.9 L Albumin 2.6 L Globulin 2.3 Albumin/Globulin Ratio 1.1 05/18/18 08:01 WBC RBC Hgb Hct MCV MCH MCHC RDW Plt Count MPV Neutrophils % (Manual) Lymphocytes % (Manual) Monocytes % (Manual) Nucleated RBC % Platelet Evaluation Large Platelets Polychromasia Poikilocytosis (manual Anisocytosis (manual) Microcytosis (manual) Macrocytosis (manual) pCO2 pO2 HCO3 ABG pH ABG Total CO2 ABG O2 Saturation ABG O2 Content ABG Base Excess ABG Hemoglobin ABG Carboxyhemoglobin POC ABG HHb (Measured) ABG Methemoglobin ABG O2 Capacity Hgb O2 Saturation FiO2 Crit Value Called To Crit Value Called By Blood Gas Notified Time Sodium Potassium Chloride Carbon Dioxide Anion Gap BUN Creatinine Est GFR ( Amer) Est GFR (Non-Af Amer) POC Glucose (mg/dL) 294 H Random Glucose Calcium Total Bilirubin AST ALT Alkaline Phosphatase Total Protein Albumin Globulin Albumin/Globulin Ratio Radiology Impressions: Radiology Impressions Chest X-Ray 05/18/18 05:00 IMPRESSION: Support lines and tubes as above. Diffuse bilateral infiltrates with bilateral effusions right larger than left. 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, mediastinal hilar adenopathy status post radiation, atrial fibrillation, COPD, insomina, PUD, gastritis admitted with SOB, HCAP, AMS, respiratory failure to MICU Currently intubated, sedated off vasopressor support Patient requiring FiO2 100%, PEEP 12 Labs, imaging, chart reviewed Weaning has been difficult due to patient spoor mental status, and high FiO2 requirements Respiratory failure, hypoxic HCAP COPD Small Cell Lung Ca, stage IV Afib Elevated troponin NSTEMI Recommend: - cont with vent support, low tidal vol ventilation 6cc/kg PBW, titrate FiO2 down, PEEP 12, daily sedation vacation, weaning if possible - Abx as per ID, would DC abx at this point - IVF - ASA, Betapace - monitor LFTs - FS control - GI ppx - DVT ppx, Lovenox - Monitor in MICU FULL CODE Extremely poor prognosis Palliative care follow up Will need LTACH, trach/PEG Critical care time 35 minutes
--- NOTE | 2018-05-18 11:56 | PN ---
DATE: 05/18/2018 PULMONARY CRITICAL CARE PROGRESS NOTE REFERRING PHYSICIAN: Erasmo Briggs MD SUBJECTIVE: The patient lying in bed, remains on ventilator, intubated and sedated, afebrile. No hemoptysis, hematemesis, hematuria. No overnight events reported. OBJECTIVE: VITAL SIGNS: Noted during the visit, blood pressure 106/51, pulse 82, temperature 97.3 and oxygen saturation 100%. HEENT: Moist mucous membranes. ET tube present. NECK: Supple. No JVD. RESPIRATORY: Decreased breath sounds bilaterally. CARDIOVASCULAR: S1 and S2 audible. ABDOMEN: Soft and nontender. No distention. EXTREMITIES: Bilateral upper and lower extremity edema. NEUROLOGIC: Intubated and sedated. MEDICATIONS: Reviewed. Tylenol 650 mg rectally every 6 hours p.r.n. for fever greater than 100.4, Tylenol 650 mg nasogastric every 6 hours p.r.n. fever greater than 100.4, aspirin 81 mg daily, Pulmicort 0.5 mg inhalation every 12 hours, Precedex 400 mcg in 100 mL at 3.357 mL per hour IV every 24 hours p.r.n., dextrose 5% in water 1000 mL p.r.n., dextrose 50% injection IV stat p.r.n., dextrose 5% in water 1000 mL at 150 mL per hour IV every 6 hours 40 minutes, fentanyl 1000 mcg in 100 mL at 2 mL per hour every 24 hours p.r.n., Dilaudid 0.5 mg IV push every 4 hours p.r.n., Humalog subcutaneously every 6 hours, Xopenex 0.63 mg inhalation every 6 hours p.r.n., Xopenex 0.63 mg inhalation 3 times a day, meropenem 1 g every 8 hours, Solu-Medrol 20 mg every 12 hours, Protonix 40 mg daily, propranolol 20 mg every 6 hours, sotalol 40 mg twice a day and verapamil 2.5 mg IV push every 6 hours p.r.n. LABORATORY DATA: Reviewed. WBC 26.3, RBC 2.92, hemoglobin 8.3, hematocrit 31.2, and platelets 102. PCO2 of 71, pO2 of 68, HCO3 of 38.3, ABG pH 7.34 and he is on FIO2 100. Sodium 159, potassium 5.6, chloride 121, carbon dioxide 40, anion gap 3, BUN 87, creatinine 1.5, GFR 46, POC glucose 323, random glucose 255, calcium 8.3, total bilirubin 1, AST 100, ALT 156, alkaline phosphatase 182, total protein 4.9, albumin 2.6, globulin 2.3, and albumin-globulin ratio 1.1. Blood cultures final no growth after 5 days. Chest x-ray shows diffuse bilateral infiltrates with bilateral effusions, right greater than left. IMPRESSION AND PLAN: Acute lung injury, aspiration pneumonia versus hospital-acquired pneumonia versus chemotherapy induced pneumonitis, unresectable small cell lung cancer, chronic obstructive lung disease, persistent atrial fibrillation, respiratory failure on ventilator, cardiac infarction, failure to thrive, sepsis, renal failure, metastatic lung cancer to T7 and liver metastases, mediastinal hilar adenopathy. Steroids were decreased this morning. Continue inhaled bronchodilators, antibiotic therapy. Continue present vent setting, Cardiology followup, Oncology followup, Infectious Disease followup. The patient was given Kayexalate this morning for hyperkalemia. We will repeat chest x-ray, labs, ABGs in the morning. Prognosis is very poor. Critical care time spent more than 35 minutes. This patient is seen and examined with Dr. Yi. Discussed assessment and plan as described above. Thank you for this consult and we will follow with you. Juan Carlos Paul APN Aura Yi MD RODRICK
--- NOTE | 2018-05-18 14:02 | PN ---
DATE: 05/18/2018 REASON FOR CONSULTATION: Status post respiratory failure, [id number] myocardial infarction, lung CA with metastasis, AFib with rapid ventricular rate (paroxysmal) and now the patient is in normal sinus. SUBJECTIVE: The patient denies any chest pain, shortness of breath, or any palpitations. OBJECTIVE: GENERAL: Not in apparent distress. The patient remains on vent and sedation and fentanyl. VITAL SIGNS: Temperature afebrile, heart rate 73, and blood pressure 89/38. HEENT: PERRLA. Extraocular muscles intact. NECK: Supple. No carotid bruits or thyromegaly. CHEST: Clear to auscultation. HEART: S1 and S2 regular. ABDOMEN: Soft. EXTREMITIES: Clubbing and cyanosis negative. LABORATORY DATA: Blood workup: WBC 26.3, hemoglobin 8.3, hematocrit 31.2, and platelet count 102. Chemistry shows sodium 159, potassium 5.6, chloride 121, carbon dioxide 40, anion gap of 3, BUN 87, and creatinine 1.5. IMPRESSION: Severe hypernatremia, anemia, paroxysmal atrial fibrillation, hypotension, renal insufficiency, prolonged intubation, lung cancer with metastasis,postobstructive pneumonia, vent dependent. RECOMMENDATIONS: Strongly consider tracheostomy, prolonged intubation is needed. We will discontinue Cardizem and increase propanolol to 20 mg four times a day, start gentle hydration. Continue NG feeding and free water 400 mL every 6 hours, I will put some normal saline and give Kayexalate as well. Overall, the patient's condition is critical. Long-term prognosis is guarded. We will follow up with you. Code status should be DNR/DNI, we will discuss with the family. We will discontinue IV Cardizem because of the low blood pressure. Put saline at 50 mL an hour, Kayexalate 15 g p.o. We will follow with you. Thank you Dr. Briggs for providing us the opportunity in taking care of the patient, Salvador Alvarenga. Aura Orozco MD
--- NOTE | 2018-05-18 14:44 | RAD ---
Date of service: 05/18/2018 HISTORY: Confirm placement of ET tube COMPARISON: Comparison chest dated 05/18/2018 at 0537 hr FINDINGS: In situ ETT, tip of which lies approximately 5.7 cm above inga. NGT is present, the distal aspect of which is coiled upon itself with tip oriented superiorly and medially near the fundal region of the stomach. No change right IJ MediPort LUNGS: Diffuse bilateral infiltrates with bilateral effusions PLEURA: as above. No pneumothorax apparent. CARDIOVASCULAR: Mild aortic atherosclerotic calcification present. Heart appears enlarged. OSSEOUS STRUCTURES: No significant abnormalities. VISUALIZED UPPER ABDOMEN: Normal. OTHER FINDINGS: None. IMPRESSION: Support lines and tubes as above. Diffuse bilateral infiltrates and bilateral effusions.
--- NOTE | 2018-05-18 15:24 | CP.PCM.PN ---
Subjective - Date & Time of Evaluation Date of Evaluation: 05/18/18 Time of Evaluation: 14:40 - Subjective Subjective: Still on the ventilator, on sedation, poorly responsive, no fevers overnight. Objective - Vital Signs/Intake and Output Vital Signs (last 24 hours): Temp Pulse Resp BP Pulse Ox 99.3 F 164 H 21 122/71 100 05/17/18 11:50 05/17/18 11:50 05/16/18 07:03 05/17/18 11:50 05/17/18 11:50 Intake and Output: 05/17/18 05/17/18 06:59 18:59 Intake Total 160 140 Balance 160 140 - Medications Medications: Current Medications Acetaminophen (Tylenol 650 Mg Supp) 650 mg RC Q6H PRN PRN Reason: Fever >100.4 F Last Admin: 05/10/18 20:55 Dose: 650 mg Acetaminophen (Tylenol 650mg/20.3ml Solution Ud) 650 mg NG Q6H PRN PRN Reason: FEVER > 100.4 Last Admin: 05/14/18 09:29 Dose: 650 mg Aspirin (Aspirin Chewable) 81 mg PO DAILY [facility] Last Admin: 05/17/18 10:24 Dose: 81 mg Budesonide (Pulmicort Respules) 0.5 mg IH [id number] [facility] Last Admin: 05/17/18 07:39 Dose: 0.5 mg Dextrose (Dextrose 50% Inj) 0 ml IV STAT PRN; Protocol PRN Reason: Hypoglycemia Protocol Diltiazem HCl (Cardizem Cd) 120 mg PO DAILY [facility] Last Admin: 05/07/18 11:16 Dose: Not Given Diltiazem HCl (Cardizem) 60 mg PO TID [facility] Last Admin: 05/17/18 10:24 Dose: 60 mg Hydromorphone HCl (Dilaudid) 0.5 mg IVP Q4H PRN PRN Reason: Pain, severe (8-10) Last Admin: 05/17/18 05:53 Dose: 0.5 mg Meropenem (Merrem Iv 1 Gm Premix) 1 gm in 50 mls @ 100 mls/hr IVPB Q8 [facility]; Protocol Last Admin: 05/17/18 05:54 Dose: 100 mls/hr Dexmedetomidine HCl (Precedex 400mcg/100ml) 400 mcg in 100 mls @ 3.357 mls/hr IV .Q24H PRN; Protocol PRN Reason: Sedation Last Admin: 05/17/18 01:07 Dose: 0.8 mcg/kg/hr, 13.426 mls/hr Dextrose (Dextrose 5% In Water 1000 Ml) 1,000 mls @ 0 mls/hr IV .Q0M PRN; Protocol PRN Reason: Hypoglycemia Protocol Micafungin Sodium 100 mg/ (Sodium Chloride) 100 mls @ 100 mls/hr IV DAILY [facility]; Protocol Stop: 05/17/18 13:16 Last Admin: 05/17/18 10:24 Dose: 100 mls/hr diltiaZEM IVPB 100mg in NS (Cardizem 100mg In Ns) 100 mls @ 10 mls/hr IV .Q10H PRN; Protocol PRN Reason: TITRATE PER MD ORDER Last Titration: 05/17/18 11:47 Dose: 20 mg/hr, 20 mls/hr NOREPINEPHRINE BIT/0.9 % NACL (Levophed 4 Mg/ 250 Ml Ns Premixed) 4 mg in 250 mls @ 15 mls/hr IV .[id number] PRN; Protocol PRN Reason: TITRATE PER MD ORDER Last Titration: 05/13/18 12:00 Dose: 0 mcg/min, 0 mls/hr Fentanyl Citrate (Fentanyl Citrate/Sodium Chloride 1 Mg/100 Ml) 1,000 mcg in 100 mls @ 2 mls/hr IV .Q24H PRN; Protocol PRN Reason: TITRATE PER MD ORDER Last Admin: 05/17/18 12:06 Dose: 50 mcg/hr, 5 mls/hr Insulin Human Lispro (Humalog High) 0 units SC ACHS [facility]; Protocol Last Admin: 05/17/18 08:33 Dose: 10 u Levalbuterol HCl (Xopenex) 0.63 mg IH [id number] PRN PRN Reason: Shortness of Breath Last Admin: 05/15/18 02:05 Dose: 0.63 mg Levalbuterol HCl (Xopenex) 0.63 mg IH TIDRESP [facility] Last Admin: 05/17/18 07:40 Dose: 0.63 mg Methylprednisolone (Solu-Medrol) 40 mg IVP Q12 [facility] Last Admin: 05/17/18 10:24 Dose: 40 mg Pantoprazole Sodium (Protonix Inj) 40 mg IVP DAILY [facility] Last Admin: 05/17/18 10:24 Dose: 40 mg Sotalol HCl (Betapace) 40 mg PO BID [facility] Last Admin: 05/11/18 09:16 Dose: Not Given Verapamil HCl (Calan Tab) 40 mg PO TID [facility] Last Admin: 05/11/18 09:16 Dose: Not Given Verapamil HCl (Verapamil Inj) 2.5 mg IVP Q6 PRN PRN Reason: FOR HR GREATER THAN 130 Last Admin: 05/17/18 05:53 Dose: 2.5 mg - Labs Labs: 05/17/18 08:00 05/17/18 08:00 PT 14.0 SECONDS (9.4-12.5) H 05/15/18 20:43 INR 1.26 05/15/18 20:43 APTT 30.5 Seconds (26.9-38.3) 05/15/18 20:43 - Constitutional Appears: Chronically Ill (intubated, sedated, poorly responsive) - Head Exam Head Exam: NORMAL INSPECTION - ENT Exam Additional comments: ET tube in place - Respiratory Exam Respiratory Exam: Decreased Breath Sounds, Rales (scattered) - Cardiovascular Exam Cardiovascular Exam: +S1, +S2 - GI/Abdominal Exam GI & Abdominal Exam: Soft. absent: Tenderness Assessment and Plan - Assessment and Plan (Free Text) Plan: Assessment hypoxic respiratory failure, with VDRF, with SIRS, R/O severe sepsis from hospital-acquired pneumonia on top of worsening lung cancer; new onset fever R/O Influenza S/P sepsis due to multifocal HCAP in this patient with stage 4 lung cancer, S/P confusion consider toxic-metabolic encephalopathy small cell lung cancer stage 4 on radiation and chemotherapy COPD atrial fibrillation gastritis Plan continue Merrem day 13, will d/c Mycamine since blood cx are negative - completed course of Tamiflu (5 days); repeat blood cx are negative - will consider completing 14 days of therapy patient's prognosis is very poor
--- NOTE | 2018-05-18 15:46 | PN ---
DATE: 05/18/2018 This is [facility]'s first hospital [place] visit in the Intensive Care Unit. For Dr. Bullard. SUBJECTIVE: The patient is a 77-year-old male, seen lying somnolent, but arousable in the Intensive Care Unit, now suffering from respiratory failure, remains on a ventilator, intubated with the patient opening his eyes to questioning on occasion. He suffered from pneumonia and unresectable small cell cancer of the lung, COPD, and atrial fibrillation. After discussion with his family members, Dr. Bullard reports the patient is still Full Code with eventual plans for transfer once the patient's condition improves. OBJECTIVE/PHYSICAL EXAMINATION: GENERAL: He appears obtunded. VITAL SIGNS: Temperature 99; pulse 73; respirations on a vent; blood pressure 89/38 with pressors; and oxygen saturation 100%. HEENT: The patient is intubated. NECK: No nodes. HEART: Regular rate. LUNGS: Decreased breath sounds, occasional rhonchi bilaterally. ABDOMEN: Soft. EXTREMITIES: Plus 1 edema with ecchymotic change in the arms bilaterally, plus 1 edema in the feet also. SKIN: As above, warm otherwise. NEUROLOGIC: Intubated with the patient opening eyes occasionally. LABORATORY DATA: The patient's labs were done. White blood cell count 26.3, hemoglobin 8.3, hematocrit 31.2, and platelet count of 102,000. Metabolic panel shows a sodium of 159, potassium 5.6, chloride 121, carbon dioxide of 40, BUN of 87, creatinine 1.5, nonfasting glucose 295, AST of 100, ALT of 156, and alk phos 182. The patient's sputum culture 2 days prior showed normal bharti. Clostridium difficile testing was done 4 days prior, it was negative for antigen and toxin. 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 Chest x-ray was done today; it was read as tubes noted, diffuse bilateral infiltrates with bilateral effusions, right larger than left. PLAN: Plan for this patient after conversation with Dr. Bullard is to continue present medical regimen. He remains on Full Code at this time. Discussion with family palliation eventually with DNR/DNI and hospice discussed with the family. The patient also has anemia of chronic disease, and after reviewing the stone product fabricator's 64-page note and palliative care nurse note, consideration for long-term acute care versus extubation for LTAC placement as indicated. This is a complex patient with a comprehensive medically necessary and appropriate visit carried out in excess of 40 minutes with discussion held with the nursing staff regarding his care. Erasmo Briggs MD
[2018-05-18] MEDS: MethylPREDNISolone 40 mg Vial IVP SCH (22:26)
[2018-05-19] MEDS: Fentanyl 1000mcg/100ml NS 1,000 MCG/100 ML BAG IV PRN ×2 (02:00→16:29)
[2018-05-19 05:22] LABS: ARTERIAL BLOOD GAS HCO3 36.7 mmol/L (21-28); ARTERIAL BLOOD GAS HEMOGLOBIN 7.9 g/dL (11.7-17.4); ARTERIAL BLOOD GAS O2 CAPACITY 10.9 mL/dl (16-24); ARTERIAL BLOOD GAS O2 CONTENT 10.9 ML/dl (15-23); ARTERIAL BLOOD GAS O2 SAT 99.9 % (95-98); ARTERIAL BLOOD GAS PCO2 68 mm/Hg (35-45); ARTERIAL BLOOD GAS PH 7.34 (7.35-7.45); ARTERIAL BLOOD GAS TCO2 38.8 mmol.L (22-28)
[2018-05-19] MEDS: Meropenem IV 1 gm in NS 1 GM/50 ML BAG IVPB SCH ×3 (05:27→21:28)
[2018-05-19] MEDS: Levalbuterol 0.63 MG/3 ML Inhal Soln UD IH SCH ×3 (07:05→20:30)
[2018-05-19] MEDS: Budesonide 0.5 mg/2 ml Inhal Susp UD IH SCH ×2 (07:05→20:30)
[2018-05-19 07:41] LABS: ALBUMIN 2.3 g/dL (3.0-4.8); CALCIUM 8.4 mg/dL (8.4-10.5)
[2018-05-19 07:43] LABS: BASO # 0.01 K/mm3 (0.0-2.0); HEMOGLOBIN 8.2 g/dL (14.0-18.0); LYMPH # 0.8 (1.2-3.4); LYMPH % 3.7 % (22.0-35.0); MEAN CELL VOLUME 105.7 fl (80.0-105.0); MEAN CORPUSCULAR HGB CONC 27.4 g/dl (31.0-37.0); MONO # 0.3 (0.1-0.6); MONO % 1.4 % (1.0-6.0); PLATELET COUNT 72 10^3/uL (120.0-450.0); RBC 2.83 10^6/uL (3.5-6.1); RED CELL DISTRIBUTION WIDTH 21.3 % (11.5-14.5); WHITE BLOOD COUNT 21.1 10^3/uL (4.5-11.0)
[2018-05-19] MEDS ORDERED: Insulin Regular 1 UNITS/0.01 ML ML SC ONE (07:55)
[2018-05-19] MEDS ORDERED: Insulin Regular 1 UNITS/0.01 ML ML IV ONE (08:40)
--- NOTE | 2018-05-19 10:41 | RAD ---
Date of service: 05/19/2018 HISTORY: ventilator COMPARISON: Comparison chest 05/18/2018 FINDINGS: In situ ETT, tip of which lies approximately 7.5 cm above inga. Situ NGT is also present, the tip of which has not been included on this film though distal aspect does lie well below EG junction. No change right IJ MediPort LUNGS: Diffuse bilateral interstitial and alveolar-type infiltrates suspect small bilateral effusions PLEURA: As above. No pneumothorax apparent. CARDIOVASCULAR: Mild aortic atherosclerotic calcification present. Cardiomegaly. No pulmonary vascular congestion. OSSEOUS STRUCTURES: No significant abnormalities. VISUALIZED UPPER ABDOMEN: Normal. OTHER FINDINGS: None. IMPRESSION: Support lines and tubes as above. Diffuse bilateral interstitial and alveolar-type infiltrates with bilateral effusions. As
[2018-05-19] MEDS: Insulin Lispro (HUMAlog) HIGH Coverage SC SCH ×3 (13:00→17:29)
[2018-05-19 14:43] LABS: CALCIUM 8.3 mg/dL (8.4-10.5)
[2018-05-19] MEDS ORDERED: Vancomycin 1.5 GM in Sodium Chloride 0.9% 500 ML IVPB ONE (14:46)
--- NOTE | 2018-05-19 14:46 | CP.PCM.PN ---
Subjective - Date & Time of Evaluation Date of Evaluation: 05/19/18 Time of Evaluation: 13:20 - Subjective Subjective: Patient continues to be on the ventilator, in acute distress, no fevers. WBC count still elevated. Objective - Vital Signs/Intake and Output Vital Signs (last 24 hours): Temp Pulse Resp BP Pulse Ox 97.5 F L 64 21 95/45 L 100 05/18/18 14:00 05/18/18 14:00 05/16/18 07:03 05/18/18 13:59 05/18/18 14:00 Intake and Output: 05/18/18 05/18/18 06:59 18:59 Intake Total 30 100 Balance 30 100 - Medications Medications: Current Medications Acetaminophen (Tylenol 650 Mg Supp) 650 mg RC Q6H PRN PRN Reason: Fever >100.4 F Last Admin: 05/10/18 20:55 Dose: 650 mg Acetaminophen (Tylenol 650mg/20.3ml Solution Ud) 650 mg NG Q6H PRN PRN Reason: FEVER > 100.4 Last Admin: 05/14/18 09:29 Dose: 650 mg Aspirin (Aspirin Chewable) 81 mg PO DAILY [facility] Last Admin: 05/18/18 10:38 Dose: 81 mg Budesonide (Pulmicort Respules) 0.5 mg IH [id number] [facility] Last Admin: 05/18/18 08:19 Dose: 0.5 mg Dextrose (Dextrose 50% Inj) 0 ml IV STAT PRN; Protocol PRN Reason: Hypoglycemia Protocol Dextrose (Dextrose 50% Inj) 0 ml IV STAT PRN; Protocol PRN Reason: Hypoglycemia Protocol Diltiazem HCl (Cardizem Cd) 120 mg PO DAILY [facility] Last Admin: 05/07/18 11:16 Dose: Not Given Hydromorphone HCl (Dilaudid) 0.5 mg IVP Q4H PRN PRN Reason: Pain, severe (8-10) Last Admin: 05/18/18 06:32 Dose: 0.5 mg Meropenem (Merrem Iv 1 Gm Premix) 1 gm in 50 mls @ 100 mls/hr IVPB Q8 ZARI; Protocol Last Admin: 05/18/18 14:38 Dose: 100 mls/hr Dexmedetomidine HCl (Precedex 400mcg/100ml) 400 mcg in 100 mls @ 3.357 mls/hr IV .Q24H PRN; Protocol PRN Reason: Sedation Last Titration: 05/17/18 22:54 Dose: 0 mcg/kg/hr, 0 mls/hr Dextrose (Dextrose 5% In Water 1000 Ml) 1,000 mls @ 0 mls/hr IV .Q0M PRN; Protocol PRN Reason: Hypoglycemia Protocol Fentanyl Citrate (Fentanyl Citrate/Sodium Chloride 1 Mg/100 Ml) 1,000 mcg in 100 mls @ 2 mls/hr IV .Q24H PRN; Protocol PRN Reason: TITRATE PER MD ORDER Last Admin: 05/18/18 11:26 Dose: 70 mcg/hr, 7 mls/hr Dextrose (Dextrose 5% In Water 1000 Ml) 1,000 mls @ 0 mls/hr IV .Q0M PRN; Protocol PRN Reason: Hypoglycemia Protocol Dextrose (Dextrose 5% In Water 1000 Ml) 1,000 mls @ 150 mls/hr IV .Q6H40M STA Stop: 05/18/18 15:57 Last Admin: 05/18/18 10:39 Dose: 150 mls/hr Insulin Human Lispro (Humalog High) 0 units SC Q6 ZARI; Protocol Last Admin: 05/18/18 12:52 Dose: 7 unit Levalbuterol HCl (Xopenex) 0.63 mg IH [id number] PRN PRN Reason: Shortness of Breath Last Admin: 05/15/18 02:05 Dose: 0.63 mg Levalbuterol HCl (Xopenex) 0.63 mg IH TIDRESP [facility] Last Admin: 05/18/18 14:25 Dose: 0.63 mg Methylprednisolone (Solu-Medrol) 20 mg IVP Q12 [facility] Pantoprazole Sodium (Protonix Inj) 40 mg IVP DAILY [facility] Last Admin: 05/18/18 10:38 Dose: 40 mg Propranolol HCl (Inderal) 20 mg PO Q6H [facility] Last Admin: 05/18/18 10:39 Dose: 20 mg Sotalol HCl (Betapace) 40 mg PO BID [facility] Last Admin: 05/11/18 09:16 Dose: Not Given Verapamil HCl (Calan Tab) 40 mg PO TID [facility] Last Admin: 05/11/18 09:16 Dose: Not Given Verapamil HCl (Verapamil Inj) 2.5 mg IVP Q6 PRN PRN Reason: FOR HR GREATER THAN 130 Last Admin: 05/17/18 13:34 Dose: 2.5 mg - Labs Labs: 05/18/18 05:40 05/18/18 05:40 PT 14.0 SECONDS (9.4-12.5) H 05/15/18 20:43 INR 1.26 05/15/18 20:43 APTT 30.5 Seconds (26.9-38.3) 05/15/18 20:43 - Constitutional Appears: Chronically Ill, Other (intubated, poorly responsive) - Head Exam Head Exam: NORMAL INSPECTION - ENT Exam Additional comments: ET tube in place - Respiratory Exam Respiratory Exam: Decreased Breath Sounds Additional comments: right anterior chest wall port in place - Cardiovascular Exam Cardiovascular Exam: +S1, +S2 - GI/Abdominal Exam GI & Abdominal Exam: Soft. 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
[2018-05-19] MEDS: MethylPREDNISolone 40 mg Vial IVP SCH ×2 (14:52→21:29)
--- NOTE | 2018-05-19 14:57 | CP.CCUPN ---
<Haley Mckeon - Last Filed: 05/19/18 14:54> CCU Subjective - Physician Review Subjective (Free Text): Haley Mckeon, PGY-1, ICU Progress Note for Dr. Aguilera Patient seen and evaluated at bedside. Patient had no acute overnight events. Patient is currently will open his eyes to stimuli. Patient is currently intubated and sedated with vent settings of 450/20/12/100%. CCU Objective - Vital Signs / Intake & Output Intake and Output (Last 8hrs): Intake & Output 05/18/18 05/19/18 05/19/18 22:59 06:59 14:59 Intake Total 2724 1400 Output Total 600 Balance 2724 800 Weight 170 lb Intake: IV 1204 400 Right Hand 300 Right Subclavian 1204 Oral 1000 Tube Feeding 720 Other 800 Output: Urine 400 Urethral (Yang) 400 Stool 200 - Physical Exam Head: Positive for: Atraumatic, Normocephalic Pupils: Positive for: PERRL Conjunctiva: Positive for: Normal Mouth: Positive for: Moist Mucous Membranes Neck: Positive for: Normal Range of Motion Respiratory/Chest: Positive for: Respiratory Distress, Wheezes, Rales, Other (currently on ventilator). Negative for: Accessory Muscle Use Cardiovascular: Positive for: Normal S1, S2, Irregular Rhythm. Negative for: Murmurs Abdomen: Negative for: Tenderness, Distention, Peritoneal Signs Back: Positive for: Normal Inspection Upper Extremity: Positive for: Normal Inspection. Negative for: Cyanosis, Edema Lower Extremity: Positive for: Normal Inspection. Negative for: Edema Neurological: Positive for: Other (intubated) Skin: Positive for: Warm, Dry, Normal Color, Other (R IJ central port noted, multiple bruises noted on bilateral upper extremities). Negative for: Rashes - Medications Active Medications: Active Medications Generic Name Dose Route Start Last Admin Trade Name Freq PRN Reason Stop Dose Admin Acetaminophen 650 mg 05/10/18 20:29 05/10/18 20:55 Tylenol 650 Mg Supp RC 650 mg Q6H PRN Administration Fever >100.4 F Acetaminophen 650 mg 05/14/18 09:13 05/14/18 09:29 Tylenol 650mg/20.3ml Solution Ud NG 650 mg Q6H PRN Administration FEVER > 100.4 Aspirin 81 mg 05/12/18 11:30 05/18/18 10:38 Aspirin Chewable PO 81 mg DAILY ZARI Administration Budesonide 0.5 mg 04/27/18 20:00 05/19/18 07:05 Pulmicort Respules IH 0.5 mg [id number] ZARI Administration Dextrose 0 ml 05/09/18 10:48 Dextrose 50% Inj IV STAT PRN Hypoglycemia Protocol Protocol Dextrose 0 ml 05/18/18 08:29 Dextrose 50% Inj IV STAT PRN Hypoglycemia Protocol Protocol Diltiazem HCl 120 mg 04/27/18 10:00 05/07/18 11:16 Cardizem Cd PO Not Given DAILY ZRAI Hydromorphone HCl 0.5 mg 05/13/18 00:26 05/18/18 06:32 Dilaudid IVP 0.5 mg Q4H PRN Administration Pain, severe (8-10) Dexmedetomidine HCl 400 mcg in 100 mls @ 3.357 mls/hr 05/09/18 10:31 05/17/18 22:54 Precedex 400mcg/100ml IV 0 mcg/kg/hr .Q24H PRN 0 mls/hr Sedation Titration Protocol 0.2 MCG/KG/HR Dextrose 1,000 mls @ 0 mls/hr 05/09/18 10:48 Dextrose 5% In Water 1000 Ml IV .Q0M PRN Hypoglycemia Protocol Protocol Per Protocol Fentanyl Citrate 1,000 mcg in 100 mls @ 2 mls/hr 05/14/18 16:24 05/19/18 02:00 Fentanyl Citrate/Sodium Chloride 1 Mg/100 Ml IV 70 mcg/hr .Q24H PRN 7 mls/hr TITRATE PER MD ORDER Administration Protocol 20 MCG/HR Dextrose 1,000 mls @ 0 mls/hr 05/18/18 08:29 Dextrose 5% In Water 1000 Ml IV .Q0M PRN Hypoglycemia Protocol Protocol Per Protocol Meropenem 1 gm in 50 mls @ 100 mls/hr 05/19/18 10:00 Merrem Iv 1 Gm Premix IVPB Q12 ZARI Protocol Vancomycin HCl 1.5 gm/ Sodium 500 mls @ 167 mls/hr 05/19/18 14:46 Chloride IVPB 05/19/18 17:45 ONCE ONE Protocol Insulin Human Lispro 0 units 05/17/18 18:00 05/19/18 00:00 Humalog High SC Not Given Q6 ZARI Protocol Levalbuterol HCl 0.63 mg 04/27/18 12:16 05/15/18 02:05 Xopenex IH 0.63 mg [id number] PRN Administration Shortness of Breath Levalbuterol HCl 0.63 mg 04/28/18 20:00 05/19/18 13:09 Xopenex IH 0.63 mg TIDRESP ZARI Administration Methylprednisolone 20 mg 05/18/18 10:23 05/18/18 22:26 Solu-Medrol IVP 20 mg Q12 ZARI Administration Pantoprazole Sodium 40 mg 05/09/18 10:00 05/18/18 10:38 Protonix Inj IVP 40 mg DAILY ZARI Administration Propranolol HCl 20 mg 05/18/18 09:15 05/19/18 03:04 Inderal PO Not Given Q6H ZARI Sotalol HCl 40 mg 05/09/18 10:00 05/11/18 09:16 Betapace PO Not Given BID [facility] Verapamil HCl 40 mg 05/10/18 14:00 05/11/18 09:16 Calan Tab PO Not Given TID [facility] Verapamil HCl 2.5 mg 05/10/18 12:31 05/17/18 13:34 Verapamil Inj IVP 2.5 mg Q6 PRN Administration FOR HR GREATER THAN 130 - Patient Studies Lab Studies: Microbiology Studies 05/13/18 10:05 Blood Culture - Final Blood NO GROWTH AFTER 5 DAYS Gram Stain - Final TEST NOT PERFORMED Lab Studies 05/19/18 05/19/18 05/19/18 Range/Units 14:11 11:27 08:18 WBC (4.5-11.0) 10^3/uL RBC (3.5-6.1) 10^6/uL Hgb (14.0-18.0) g/dL Hct (42.0-52.0) % MCV (80.0-105.0) fl MCH (25.0-35.0) pg MCHC (31.0-37.0) g/dl RDW (11.5-14.5) % Plt Count (120.0-450.0) 10^3/uL Neut % (Auto) (50.0-68.0) % Lymph % (Auto) (22.0-35.0) % [place] % (Auto) (1.0-6.0) % Eos % (Auto) (1.5-5.0) % Baso % (Auto) (0.0-3.0) % Lymph # (Auto) (1.2-3.4) [place] # (Auto) (0.1-0.6) Eos # (Auto) (0.0-0.7) Baso # (Auto) (0.0-2.0) K/mm3 Absolute Neuts (auto) (1.4-6.5) pCO2 (35-45) mm/Hg pO2 (80-100) mm/Hg HCO3 (21-28) mmol/L ABG pH (7.35-7.45) ABG Total CO2 (22-28) mmol.L ABG O2 Saturation (95-98) % ABG O2 Content (15-23) ML/dl ABG Base Excess (-2.0-3.0) mmol/L ABG Hemoglobin (11.7-17.4) g/dL ABG Carboxyhemoglobin (0.5-1.5) % POC ABG HHb (Measured) (0-5) % ABG Methemoglobin (0.0-3.0) % ABG O2 Capacity (16-24) mL/dl Hgb O2 Saturation (95.0-98.0) % FiO2 % Crit Value Called To Crit Value Called By Blood Gas Notified Time Sodium 154 H (132-148) mmol/L Potassium 6.1 H* (3.6-5.0) mmol/L Chloride 117 H (98-107) mmol/L Carbon Dioxide 37 H (21-33) mmol/L Anion Gap 6 L (10-20) BUN 98 H (7-21) mg/dL Creatinine 1.7 H (0.8-1.5) mg/dl Est GFR ( Amer) 48 Est GFR (Non-Af Amer) 39 POC Glucose (mg/dL) 241 H 294 H (65-110) mg/dL Random Glucose 196 H (70-110) mg/dL Calcium 8.3 L (8.4-10.5) mg/dL Total Bilirubin (0.2-1.3) mg/dL AST (17-59) U/L ALT (7-56) U/L Alkaline Phosphatase (38-126) U/L Total Protein (5.8-8.3) g/dL Albumin (3.0-4.8) g/dL Globulin gm/dL Albumin/Globulin Ratio (1.1-1.8) 05/19/18 05/19/18 05/19/18 Range/Units 07:00 07:00 05:22 WBC 21.1 H (4.5-11.0) 10^3/uL RBC 2.83 L (3.5-6.1) 10^6/uL Hgb 8.2 L (14.0-18.0) g/dL Hct 29.9 L (42.0-52.0) % MCV 105.7 H (80.0-105.0) fl MCH 29.0 (25.0-35.0) pg MCHC 27.4 L (31.0-37.0) g/dl RDW 21.3 H (11.5-14.5) % Plt Count 72 L (120.0-450.0) 10^3/uL Neut % (Auto) 94.9 H (50.0-68.0) % Lymph % (Auto) 3.7 L (22.0-35.0) % [place] % (Auto) 1.4 (1.0-6.0) % Eos % (Auto) 0.0 L (1.5-5.0) % Baso % (Auto) 0.0 (0.0-3.0) % Lymph # (Auto) 0.8 L (1.2-3.4) [place] # (Auto) 0.3 (0.1-0.6) Eos # (Auto) 0.0 (0.0-0.7) Baso # (Auto) 0.01 (0.0-2.0) K/mm3 Absolute Neuts (auto) 19.99 H (1.4-6.5) pCO2 (35-45) mm/Hg pO2 (80-100) mm/Hg HCO3 (21-28) mmol/L ABG pH (7.35-7.45) ABG Total CO2 (22-28) mmol.L ABG O2 Saturation (95-98) % ABG O2 Content (15-23) ML/dl ABG Base Excess (-2.0-3.0) mmol/L ABG Hemoglobin (11.7-17.4) g/dL ABG Carboxyhemoglobin (0.5-1.5) % POC ABG HHb (Measured) (0-5) % ABG Methemoglobin (0.0-3.0) % ABG O2 Capacity (16-24) mL/dl Hgb O2 Saturation (95.0-98.0) % FiO2 % Crit Value Called To Crit Value Called By Blood Gas Notified Time Sodium 155 H (132-148) mmol/L Potassium 6.2 H* (3.6-5.0) mmol/L Chloride 117 H (98-107) mmol/L Carbon Dioxide 40 H (21-33) mmol/L Anion Gap 4 L (10-20) BUN 90 H (7-21) mg/dL Creatinine 1.6 H (0.8-1.5) mg/dl Est GFR ( Amer) 51 Est GFR (Non-Af Amer) 42 POC Glucose (mg/dL) 279 H (65-110) mg/dL Random Glucose 225 H (70-110) mg/dL Calcium 8.4 (8.4-10.5) mg/dL Total Bilirubin 0.6 (0.2-1.3) mg/dL AST 41 (17-59) U/L ALT 133 H (7-56) U/L Alkaline Phosphatase 168 H (38-126) U/L Total Protein 4.5 L (5.8-8.3) g/dL Albumin 2.3 L (3.0-4.8) g/dL Globulin 2.2 gm/dL Albumin/Globulin Ratio 1.0 L (1.1-1.8) 05/19/18 05/18/18 05/18/18 Range/Units 05:00 21:26 11:10 WBC (4.5-11.0) 10^3/uL RBC (3.5-6.1) 10^6/uL Hgb (14.0-18.0) g/dL Hct (42.0-52.0) % MCV (80.0-105.0) fl MCH (25.0-35.0) pg MCHC (31.0-37.0) g/dl RDW (11.5-14.5) % Plt Count (120.0-450.0) 10^3/uL Neut % (Auto) (50.0-68.0) % Lymph % (Auto) (22.0-35.0) % [place] % (Auto) (1.0-6.0) % Eos % (Auto) (1.5-5.0) % Baso % (Auto) (0.0-3.0) % Lymph # (Auto) (1.2-3.4) [place] # (Auto) (0.1-0.6) Eos # (Auto) (0.0-0.7) Baso # (Auto) (0.0-2.0) K/mm3 Absolute Neuts (auto) (1.4-6.5) pCO2 68 H (35-45) mm/Hg pO2 109.0 H (80-100) mm/Hg HCO3 36.7 H (21-28) mmol/L ABG pH 7.34 L (7.35-7.45) ABG Total CO2 38.8 H (22-28) mmol.L ABG O2 Saturation 99.9 H (95-98) % ABG O2 Content 10.9 L (15-23) ML/dl ABG Base Excess 9.6 H (-2.0-3.0) mmol/L ABG Hemoglobin 7.9 L (11.7-17.4) g/dL ABG Carboxyhemoglobin 3.0 H (0.5-1.5) % POC ABG HHb (Measured) 0.1 (0-5) % ABG Methemoglobin 1.2 (0.0-3.0) % ABG O2 Capacity 10.9 L (16-24) mL/dl Hgb O2 Saturation 95.7 (95.0-98.0) % FiO2 100.0 % Crit Value Called To Leanne rubin Crit Value Called By [facility] Blood Gas Notified Time 522 Sodium (132-148) mmol/L Potassium (3.6-5.0) mmol/L Chloride (98-107) mmol/L Carbon Dioxide (21-33) mmol/L Anion Gap (10-20) BUN (7-21) mg/dL Creatinine (0.8-1.5) mg/dl Est GFR ( Amer) Est GFR (Non-Af Amer) POC Glucose (mg/dL) 214 H 282 H (65-110) mg/dL Random Glucose (70-110) mg/dL Calcium (8.4-10.5) mg/dL Total Bilirubin (0.2-1.3) mg/dL AST (17-59) U/L ALT (7-56) U/L Alkaline Phosphatase (38-126) U/L Total Protein (5.8-8.3) g/dL Albumin (3.0-4.8) g/dL Globulin gm/dL Albumin/Globulin Ratio (1.1-1.8) Laboratory Results - last 24 hr 05/18/18 05/18/18 05/19/18 11:10 21:26 05:00 WBC RBC Hgb Hct MCV MCH MCHC RDW Plt Count Neut % (Auto) Lymph % (Auto) [place] % (Auto) Eos % (Auto) Baso % (Auto) Lymph # (Auto) [place] # (Auto) Eos # (Auto) Baso # (Auto) Absolute Neuts (auto) pCO2 68 H pO2 109.0 H HCO3 36.7 H ABG pH 7.34 L ABG Total CO2 38.8 H ABG O2 Saturation 99.9 H ABG O2 Content 10.9 L ABG Base Excess 9.6 H ABG Hemoglobin 7.9 L ABG Carboxyhemoglobin 3.0 H POC ABG HHb (Measured) 0.1 ABG Methemoglobin 1.2 ABG O2 Capacity 10.9 L Hgb O2 Saturation 95.7 FiO2 100.0 Crit Value Called To Leanne rubin Crit Value Called By [facility] Blood Gas Notified Time 522 Sodium Potassium Chloride Carbon Dioxide Anion Gap BUN Creatinine Est GFR ( Amer) Est GFR (Non-Af Amer) POC Glucose (mg/dL) 282 H 214 H Random Glucose Calcium Total Bilirubin AST ALT Alkaline Phosphatase Total Protein Albumin Globulin Albumin/Globulin Ratio 05/19/18 05/19/18 05/19/18 05:22 07:00 07:00 WBC 21.1 H RBC 2.83 L Hgb 8.2 L Hct 29.9 L MCV 105.7 H MCH 29.0 MCHC 27.4 L RDW 21.3 H Plt Count 72 L Neut % (Auto) 94.9 H Lymph % (Auto) 3.7 L [place] % (Auto) 1.4 Eos % (Auto) 0.0 L Baso % (Auto) 0.0 Lymph # (Auto) 0.8 L [place] # (Auto) 0.3 Eos # (Auto) 0.0 Baso # (Auto) 0.01 Absolute Neuts (auto) 19.99 H pCO2 pO2 HCO3 ABG pH ABG Total CO2 ABG O2 Saturation ABG O2 Content ABG Base Excess ABG Hemoglobin ABG Carboxyhemoglobin POC ABG HHb (Measured) ABG Methemoglobin ABG O2 Capacity Hgb O2 Saturation FiO2 Crit Value Called To Crit Value Called By Blood Gas Notified Time Sodium 155 H Potassium 6.2 H* Chloride 117 H Carbon Dioxide 40 H Anion Gap 4 L BUN 90 H Creatinine 1.6 H Est GFR ( Amer) 51 Est GFR (Non-Af Amer) 42 POC Glucose (mg/dL) 279 H Random Glucose 225 H Calcium 8.4 Total Bilirubin 0.6 AST 41 ALT 133 H Alkaline Phosphatase 168 H Total Protein 4.5 L Albumin 2.3 L Globulin 2.2 Albumin/Globulin Ratio 1.0 L 05/19/18 05/19/18 05/19/18 08:18 11:27 14:11 WBC RBC Hgb Hct MCV MCH MCHC RDW Plt Count Neut % (Auto) Lymph % (Auto) [place] % (Auto) Eos % (Auto) Baso % (Auto) Lymph # (Auto) [place] # (Auto) Eos # (Auto) Baso # (Auto) Absolute Neuts (auto) pCO2 pO2 HCO3 ABG pH ABG Total CO2 ABG O2 Saturation ABG O2 Content ABG Base Excess ABG Hemoglobin ABG Carboxyhemoglobin POC ABG HHb (Measured) ABG Methemoglobin ABG O2 Capacity Hgb O2 Saturation FiO2 Crit Value Called To Crit Value Called By Blood Gas Notified Time Sodium 154 H Potassium 6.1 H* Chloride 117 H Carbon Dioxide 37 H Anion Gap 6 L BUN 98 H Creatinine 1.7 H Est GFR ( Amer) 48 Est GFR (Non-Af Amer) 39 POC Glucose (mg/dL) 294 H 241 H Random Glucose 196 H Calcium 8.3 L Total Bilirubin AST ALT Alkaline Phosphatase Total Protein Albumin Globulin Albumin/Globulin Ratio Radiology Impressions: Radiology Impressions Chest X-Ray 05/19/18 05:00 IMPRESSION: Support lines and tubes as above. Diffuse bilateral interstitial and alveolar-type infiltrates with bilateral effusions. 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 Patient has failed multiple weaning trials and prognosis is critical. Plan: Neuro: S/p intubation for hypoxic repsiratory failure -Intubated on 05/05/18, currently sedated on precedex and fentanyl -Head CT w/o contrast on 05/10/18 showed no acute intracranial abnormalities -EEG on 05/11/18 showed abnormal EEG record that demonstrate the presence of moderate to severe non specific diffuse disturbance of cortical activity, findings are not specific. No seizures. Patient is not in status epilepticus. Cardio: Atrial flutter -EKG 05/10: Atrial flutter with 2:1 AV block with HR: 156 -Continue propanolol as per Cardiology. -Maintain MAP>65. NSTEMI -EKG 05/10: Atrial flutter with 2:1 AV block with HR: 156 -Troponin: 05/06/09 10.9, 9.66, 8.96, 6.33 -Continue Aspirin 81mg, topical nitroglycerin q6, propanolol Elevated BNP -BNP 05/12: increased to 9730 from 3240. Consider diastolic CHF -Echocardiogram 05/07: EF: 49.3%, trace AR, MR, RVSP: 50 -Patient is likely dry and has been given boluses of NS with moderate improvement in heart rate. Pulm/Oncology Hypoxic respiratory failure 2/2 to ARDS from small cell lung carcinoma vs. pneumonitis -Patient intubated and sedated with settings 450/20/12/100% -Maintain O2 saturation>90%. ABG 05/19 shows pH: 7.34, pCO2: 68, and pO2: 109 which is worsened from yesterday. Increased RR -CXR: improved today. diffuse bilateral infiltrates with bilateral effusions -As per Dr. Bullard, Heme/Onc, patient has possible pneumonitis as complication of Tecentriq treatment for SCLC -Treat Tecentriq side effect with solumedrol 20 mg Q12 -Recent PET CT shows improvement in small cell lung carcinoma -Weaning and sedation trials, Elevate bed to 30 degrees, oral protective hygiene daily, conservative fluid management COPD -Continue with Pulmicort 0.5 mg IH Q12, and xopenex 0.63 mg IH TID, solumedrol 20 mg Q12 GI: Elevated LFTs -improved today, consider dehydration vs congestive hepatopathy, will continue to trend Diet -continue jevity feedings Prophylaxis -Protonix 40 mg IV daily /Nephro: -BUN/Cr worsened today. Possibly due to MODS -Maintain euvolemia -Replace electrolytes as necessary ID: Multifocal pneumonia -CXR: improved today. diffuse bilateral infiltrates with bilateral effusions -Chest CT 04/27: multifocal pneumonia -Afebrile, WBC is 21.1 from 26.3, downtrending -Blood culture was negative for 5 days upon admission from 05/09. Blood culture reordered was negative for 5 days. -Negative urine culture, tracheal aspiration culture, C. Dif stool toxin -Procal 05/05: 0.55. Repeat procal was 0.62 on 05/09/18 -Vancomycin 1 gm Q12 day 14, Merrem 1 gm Q8 day 14, Nystatin 5 mg QID. Likely to stop antibiotics today as per ID Endocrinology: -Random glucose: 225 -HgbA1c: 6.2 -High SSI -Continue with high dose sliding scale insulin with target glucose 140-180 as per NICE sugar trial Heme Anemia -Hg is 8.2 from 8.3 yesterday DVT prophylaxis -SCD Disposition: Patient prognosis is critical. Per families wishes, patient to remain full code at this time. If family continues full code status, discussion should be started about transitioning patient to LTAC facility for further management and care. Patient seen and examined with Dr. Aguilera. - Date & Time Date: 05/19/18 Time: 14:59 <KofirogerFausto johnson - Last Filed: 05/19/18 15:39> CCU Objective - Vital Signs / Intake & Output Vital Signs (Last 4 hours): Vital Signs Pulse BP 05/19/18 14:55 81 103/52 L Intake and Output (Last 8hrs): Intake & Output 05/19/18 05/19/18 05/19/18 06:59 14:59 22:59 Intake Total 1400 Output Total 600 Balance 800 Weight 170 lb Intake: IV 400 Right Hand 300 Oral 1000 Output: Urine 400 Urethral (Yang) 400 Stool 200 - Medications Active Medications: Active Medications Generic Name Dose Route Start Last Admin Trade Name Freq PRN Reason Stop Dose Admin Acetaminophen 650 mg 05/10/18 20:29 05/10/18 20:55 Tylenol 650 Mg Supp RC 650 mg Q6H PRN Administration Fever >100.4 F Acetaminophen 650 mg 05/14/18 09:13 05/14/18 09:29 Tylenol 650mg/20.3ml Solution Ud NG 650 mg Q6H PRN Administration FEVER > 100.4 Aspirin 81 mg 05/12/18 11:30 05/19/18 14:52 Aspirin Chewable PO 81 mg DAILY ZARI Administration Budesonide 0.5 mg 04/27/18 20:00 05/19/18 07:05 Pulmicort Respules IH 0.5 mg [id number] ZARI Administration Dextrose 0 ml 05/09/18 10:48 Dextrose 50% Inj IV STAT PRN Hypoglycemia Protocol Protocol Dextrose 0 ml 05/18/18 08:29 Dextrose 50% Inj IV STAT PRN Hypoglycemia Protocol Protocol Diltiazem HCl 120 mg 04/27/18 10:00 05/07/18 11:16 Cardizem Cd PO Not Given DAILY ZARI Hydromorphone HCl 0.5 mg 05/13/18 00:26 05/18/18 06:32 Dilaudid IVP 0.5 mg Q4H PRN Administration Pain, severe (8-10) Dexmedetomidine HCl 400 mcg in 100 mls @ 3.357 mls/hr 05/09/18 10:31 05/17/18 22:54 Precedex 400mcg/100ml IV 0 mcg/kg/hr .Q24H PRN 0 mls/hr Sedation Titration Protocol 0.2 MCG/KG/HR Dextrose 1,000 mls @ 0 mls/hr 05/09/18 10:48 Dextrose 5% In Water 1000 Ml IV .Q0M PRN Hypoglycemia Protocol Protocol Per Protocol Fentanyl Citrate 1,000 mcg in 100 mls @ 2 mls/hr 05/14/18 16:24 05/19/18 02:00 Fentanyl Citrate/Sodium Chloride 1 Mg/100 Ml IV 70 mcg/hr .Q24H PRN 7 mls/hr TITRATE PER MD ORDER Administration Protocol 20 MCG/HR Dextrose 1,000 mls @ 0 mls/hr 05/18/18 08:29 Dextrose 5% In Water 1000 Ml IV .Q0M PRN Hypoglycemia Protocol Protocol Per Protocol Meropenem 1 gm in 50 mls @ 100 mls/hr 05/19/18 10:00 05/19/18 14:53 Merrem Iv 1 Gm Premix IVPB 100 mls/hr Q12 ZARI Administration Protocol Vancomycin HCl 1.5 gm/ Sodium 500 mls @ 167 mls/hr 05/19/18 14:46 Chloride IVPB 05/19/18 17:45 ONCE ONE Protocol Insulin Human Lispro 0 units 05/17/18 18:00 05/19/18 13:00 Humalog High SC 4 unit Q6 ZARI Administration Protocol Levalbuterol HCl 0.63 mg 04/27/18 12:16 05/15/18 02:05 Xopenex IH 0.63 mg [id number] PRN Administration Shortness of Breath Levalbuterol HCl 0.63 mg 04/28/18 20:00 05/19/18 13:09 Xopenex IH 0.63 mg TIDRESP ZARI Administration Methylprednisolone 20 mg 05/18/18 10:23 05/19/18 14:52 Solu-Medrol IVP 20 mg Q12 ZARI Administration Pantoprazole Sodium 40 mg 05/09/18 10:00 05/19/18 14:52 Protonix Inj IVP 40 mg DAILY ZARI Administration Propranolol HCl 20 mg 05/18/18 09:15 05/19/18 14:55 Inderal PO 20 mg Q6H ZARI Administration Sotalol HCl 40 mg 05/09/18 10:00 05/11/18 09:16 Betapace PO Not Given BID ZARI Verapamil HCl 40 mg 05/10/18 14:00 05/11/18 09:16 Calan Tab PO Not Given TID ZARI Verapamil HCl 2.5 mg 05/10/18 12:31 05/17/18 13:34 Verapamil Inj IVP 2.5 mg Q6 PRN Administration FOR HR GREATER THAN 130 - Patient Studies Lab Studies: Microbiology Studies 05/18/18 15:00 Blood Culture - Preliminary Blood-Venous NO GROWTH AFTER 24 HOURS Lab Studies 05/19/18 05/19/18 05/19/18 Range/Units 14:11 11:27 08:18 WBC (4.5-11.0) 10^3/uL RBC (3.5-6.1) 10^6/uL Hgb (14.0-18.0) g/dL Hct (42.0-52.0) % MCV (80.0-105.0) fl MCH (25.0-35.0) pg MCHC (31.0-37.0) g/dl RDW (11.5-14.5) % Plt Count (120.0-450.0) 10^3/uL Neut % (Auto) (50.0-68.0) % Lymph % (Auto) (22.0-35.0) % [place] % (Auto) (1.0-6.0) % Eos % (Auto) (1.5-5.0) % Baso % (Auto) (0.0-3.0) % Lymph # (Auto) (1.2-3.4) [place] # (Auto) (0.1-0.6) Eos # (Auto) (0.0-0.7) Baso # (Auto) (0.0-2.0) K/mm3 Absolute Neuts (auto) (1.4-6.5) pCO2 (35-45) mm/Hg pO2 (80-100) mm/Hg HCO3 (21-28) mmol/L ABG pH (7.35-7.45) ABG Total CO2 (22-28) mmol.L ABG O2 Saturation (95-98) % ABG O2 Content (15-23) ML/dl ABG Base Excess (-2.0-3.0) mmol/L ABG Hemoglobin (11.7-17.4) g/dL ABG Carboxyhemoglobin (0.5-1.5) % POC ABG HHb (Measured) (0-5) % ABG Methemoglobin (0.0-3.0) % ABG O2 Capacity (16-24) mL/dl Hgb O2 Saturation (95.0-98.0) % FiO2 % Crit Value Called To Crit Value Called By Blood Gas Notified Time Sodium 154 H (132-148) mmol/L Potassium 6.1 H* (3.6-5.0) mmol/L Chloride 117 H (98-107) mmol/L Carbon Dioxide 37 H (21-33) mmol/L Anion Gap 6 L (10-20) BUN 98 H (7-21) mg/dL Creatinine 1.7 H (0.8-1.5) mg/dl Est GFR ( Amer) 48 Est GFR (Non-Af Amer) 39 POC Glucose (mg/dL) 241 H 294 H (65-110) mg/dL Random Glucose 196 H (70-110) mg/dL Calcium 8.3 L (8.4-10.5) mg/dL Total Bilirubin (0.2-1.3) mg/dL AST (17-59) U/L ALT (7-56) U/L Alkaline Phosphatase (38-126) U/L Total Protein (5.8-8.3) g/dL Albumin (3.0-4.8) g/dL Globulin gm/dL Albumin/Globulin Ratio (1.1-1.8) 05/19/18 05/19/18 05/19/18 Range/Units 07:00 07:00 05:22 WBC 21.1 H (4.5-11.0) 10^3/uL RBC 2.83 L (3.5-6.1) 10^6/uL Hgb 8.2 L (14.0-18.0) g/dL Hct 29.9 L (42.0-52.0) % MCV 105.7 H (80.0-105.0) fl MCH 29.0 (25.0-35.0) pg MCHC 27.4 L (31.0-37.0) g/dl RDW 21.3 H (11.5-14.5) % Plt Count 72 L (120.0-450.0) 10^3/uL Neut % (Auto) 94.9 H (50.0-68.0) % Lymph % (Auto) 3.7 L (22.0-35.0) % [place] % (Auto) 1.4 (1.0-6.0) % Eos % (Auto) 0.0 L (1.5-5.0) % Baso % (Auto) 0.0 (0.0-3.0) % Lymph # (Auto) 0.8 L (1.2-3.4) [place] # (Auto) 0.3 (0.1-0.6) Eos # (Auto) 0.0 (0.0-0.7) Baso # (Auto) 0.01 (0.0-2.0) K/mm3 Absolute Neuts (auto) 19.99 H (1.4-6.5) pCO2 (35-45) mm/Hg pO2 (80-100) mm/Hg HCO3 (21-28) mmol/L ABG pH (7.35-7.45) ABG Total CO2 (22-28) mmol.L ABG O2 Saturation (95-98) % ABG O2 Content (15-23) ML/dl ABG Base Excess (-2.0-3.0) mmol/L ABG Hemoglobin (11.7-17.4) g/dL ABG Carboxyhemoglobin (0.5-1.5) % POC ABG HHb (Measured) (0-5) % ABG Methemoglobin (0.0-3.0) % ABG O2 Capacity (16-24) mL/dl Hgb O2 Saturation (95.0-98.0) % FiO2 % Crit Value Called To Crit Value Called By Blood Gas Notified Time Sodium 155 H (132-148) mmol/L Potassium 6.2 H* (3.6-5.0) mmol/L Chloride 117 H (98-107) mmol/L Carbon Dioxide 40 H (21-33) mmol/L Anion Gap 4 L (10-20) BUN 90 H (7-21) mg/dL Creatinine 1.6 H (0.8-1.5) mg/dl Est GFR ( Amer) 51 Est GFR (Non-Af Amer) 42 POC Glucose (mg/dL) 279 H (65-110) mg/dL Random Glucose 225 H (70-110) mg/dL Calcium 8.4 (8.4-10.5) mg/dL Total Bilirubin 0.6 (0.2-1.3) mg/dL AST 41 (17-59) U/L ALT 133 H (7-56) U/L Alkaline Phosphatase 168 H (38-126) U/L Total Protein 4.5 L (5.8-8.3) g/dL Albumin 2.3 L (3.0-4.8) g/dL Globulin 2.2 gm/dL Albumin/Globulin Ratio 1.0 L (1.1-1.8) 05/19/18 05/18/18 05/18/18 Range/Units 05:00 21:26 11:10 WBC (4.5-11.0) 10^3/uL RBC (3.5-6.1) 10^6/uL Hgb (14.0-18.0) g/dL Hct (42.0-52.0) % MCV (80.0-105.0) fl MCH (25.0-35.0) pg MCHC (31.0-37.0) g/dl RDW (11.5-14.5) % Plt Count (120.0-450.0) 10^3/uL Neut % (Auto) (50.0-68.0) % Lymph % (Auto) (22.0-35.0) % [place] % (Auto) (1.0-6.0) % Eos % (Auto) (1.5-5.0) % Baso % (Auto) (0.0-3.0) % Lymph # (Auto) (1.2-3.4) [place] # (Auto) (0.1-0.6) Eos # (Auto) (0.0-0.7) Baso # (Auto) (0.0-2.0) K/mm3 Absolute Neuts (auto) (1.4-6.5) pCO2 68 H (35-45) mm/Hg pO2 109.0 H (80-100) mm/Hg HCO3 36.7 H (21-28) mmol/L ABG pH 7.34 L (7.35-7.45) ABG Total CO2 38.8 H (22-28) mmol.L ABG O2 Saturation 99.9 H (95-98) % ABG O2 Content 10.9 L (15-23) ML/dl ABG Base Excess 9.6 H (-2.0-3.0) mmol/L ABG Hemoglobin 7.9 L (11.7-17.4) g/dL ABG Carboxyhemoglobin 3.0 H (0.5-1.5) % POC ABG HHb (Measured) 0.1 (0-5) % ABG Methemoglobin 1.2 (0.0-3.0) % ABG O2 Capacity 10.9 L (16-24) mL/dl Hgb O2 Saturation 95.7 (95.0-98.0) % FiO2 100.0 % Crit Value Called To Leanne rubin Crit Value Called By [facility] Blood Gas Notified Time 522 Sodium (132-148) mmol/L Potassium (3.6-5.0) mmol/L Chloride (98-107) mmol/L Carbon Dioxide (21-33) mmol/L Anion Gap (10-20) BUN (7-21) mg/dL Creatinine (0.8-1.5) mg/dl Est GFR ( Amer) Est GFR (Non-Af Amer) POC Glucose (mg/dL) 214 H 282 H (65-110) mg/dL Random Glucose (70-110) mg/dL Calcium (8.4-10.5) mg/dL Total Bilirubin (0.2-1.3) mg/dL AST (17-59) U/L ALT (7-56) U/L Alkaline Phosphatase (38-126) U/L Total Protein (5.8-8.3) g/dL Albumin (3.0-4.8) g/dL Globulin gm/dL Albumin/Globulin Ratio (1.1-1.8) Laboratory Results - last 24 hr 05/18/18 05/18/18 05/19/18 11:10 21:26 05:00 WBC RBC Hgb Hct MCV MCH MCHC RDW Plt Count Neut % (Auto) Lymph % (Auto) [place] % (Auto) Eos % (Auto) Baso % (Auto) Lymph # (Auto) [place] # (Auto) Eos # (Auto) Baso # (Auto) Absolute Neuts (auto) pCO2 68 H pO2 109.0 H HCO3 36.7 H ABG pH 7.34 L ABG Total CO2 38.8 H ABG O2 Saturation 99.9 H ABG O2 Content 10.9 L ABG Base Excess 9.6 H ABG Hemoglobin 7.9 L ABG Carboxyhemoglobin 3.0 H POC ABG HHb (Measured) 0.1 ABG Methemoglobin 1.2 ABG O2 Capacity 10.9 L Hgb O2 Saturation 95.7 FiO2 100.0 Crit Value Called To Leanne rubin Crit Value Called By [facility] Blood Gas Notified Time 522 Sodium Potassium Chloride Carbon Dioxide Anion Gap BUN Creatinine Est GFR ( Amer) Est GFR (Non-Af Amer) POC Glucose (mg/dL) 282 H 214 H Random Glucose Calcium Total Bilirubin AST ALT Alkaline Phosphatase Total Protein Albumin Globulin Albumin/Globulin Ratio 05/19/18 05/19/18 05/19/18 05:22 07:00 07:00 WBC 21.1 H RBC 2.83 L Hgb 8.2 L Hct 29.9 L MCV 105.7 H MCH 29.0 MCHC 27.4 L RDW 21.3 H Plt Count 72 L Neut % (Auto) 94.9 H Lymph % (Auto) 3.7 L [place] % (Auto) 1.4 Eos % (Auto) 0.0 L Baso % (Auto) 0.0 Lymph # (Auto) 0.8 L [place] # (Auto) 0.3 Eos # (Auto) 0.0 Baso # (Auto) 0.01 Absolute Neuts (auto) 19.99 H pCO2 pO2 HCO3 ABG pH ABG Total CO2 ABG O2 Saturation ABG O2 Content ABG Base Excess ABG Hemoglobin ABG Carboxyhemoglobin POC ABG HHb (Measured) ABG Methemoglobin ABG O2 Capacity Hgb O2 Saturation FiO2 Crit Value Called To Crit Value Called By Blood Gas Notified Time Sodium 155 H Potassium 6.2 H* Chloride 117 H Carbon Dioxide 40 H Anion Gap 4 L BUN 90 H Creatinine 1.6 H Est GFR ( Amer) 51 Est GFR (Non-Af Amer) 42 POC Glucose (mg/dL) 279 H Random Glucose 225 H Calcium 8.4 Total Bilirubin 0.6 AST 41 ALT 133 H Alkaline Phosphatase 168 H Total Protein 4.5 L Albumin 2.3 L Globulin 2.2 Albumin/Globulin Ratio 1.0 L 05/19/18 05/19/18 05/19/18 08:18 11:27 14:11 WBC RBC Hgb Hct MCV MCH MCHC RDW Plt Count Neut % (Auto) Lymph % (Auto) [place] % (Auto) Eos % (Auto) Baso % (Auto) Lymph # (Auto) [place] # (Auto) Eos # (Auto) Baso # (Auto) Absolute Neuts (auto) pCO2 pO2 HCO3 ABG pH ABG Total CO2 ABG O2 Saturation ABG O2 Content ABG Base Excess ABG Hemoglobin ABG Carboxyhemoglobin POC ABG HHb (Measured) ABG Methemoglobin ABG O2 Capacity Hgb O2 Saturation FiO2 Crit Value Called To Crit Value Called By Blood Gas Notified Time Sodium 154 H Potassium 6.1 H* Chloride 117 H Carbon Dioxide 37 H Anion Gap 6 L BUN 98 H Creatinine 1.7 H Est GFR ( Amer) 48 Est GFR (Non-Af Amer) 39 POC Glucose (mg/dL) 294 H 241 H Random Glucose 196 H Calcium 8.3 L Total Bilirubin AST ALT Alkaline Phosphatase Total Protein Albumin Globulin Albumin/Globulin Ratio Radiology Impressions: Radiology Impressions Chest X-Ray 05/19/18 05:00 IMPRESSION: Support lines and tubes as above. Diffuse bilateral interstitial and alveolar-type infiltrates with bilateral effusions. 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, mediastinal hilar adenopathy status post radiation, atrial fibrillation, COPD, insomina, PUD, gastritis admitted with SOB, HCAP, AMS, respiratory failure to MICU Currently intubated, sedated off vasopressor support Patient requiring FiO2 100%, PEEP 12 Labs, imaging, chart reviewed Weaning has been difficult due to patient spoor mental status, and high FiO2 requirements K 6.2 today, given K lowering agents, and Kayex Respiratory failure, hypoxic HCAP COPD Small Cell Lung Ca, stage IV Afib Elevated troponin NSTEMI Recommend: - cont with vent support, low tidal vol ventilation, titrate FiO2 down, PEEP 12, daily sedation vacation, weaning if possible - Abx as per ID, would DC abx at this point - IVF, D5W, free water - Kayex 30g PO x 1, repeat BMP - ASA, Betapace - monitor LFTs - FS control - GI ppx - DVT ppx, Lovenox - Monitor in MICU FULL CODE At high risk for morbidity and mortality Extremely poor prognosis Palliative care follow up Will need LTACH, trach/PEG
[2018-05-19] MEDS ORDERED: Metoprolol 1 mg/ml Inj IVP ONE (17:20)
--- NOTE | 2018-05-19 19:18 | PN ---
DATE: 05/19/2018 This is [facility] (Former[facility]s [facility] visit in Intensive Care Unit. For Dr. Bullard. SUBJECTIVE: The patient is a 77-year-old male, seen lying in the Intensive Care Unit, continues to be intubated after suffering from respiratory failure with eyes not opening to command this visit. He is being medicated as per field radio operator's recommendations. He has noticed some unresectable small cell CA of the lung and COPD. The patient remains full code as per family's request with further decision making as his condition evolves. OBJECTIVE: VITAL SIGNS: Temperature 97.9; pulse 65; respirations 20, on a vent; and blood pressure 96/48 with pulse ox of 100%. HEENT: He is intubated, does not open eyes to command. NECK: No nodes. HEART: Regular rate. LUNGS: Scattered rhonchi. ABDOMEN: Soft. EXTREMITIES: +1 edema of the hands and feet with ecchymotic changes on his hands and forearms. SKIN: Otherwise warm and dry. NEUROLOGIC: Sedated, on a vent. LABORATORY DATA: The patient's labs were done. White blood cell count , hemoglobin of 8.2, hematocrit of 29.9, and platelet count of 72,000 with a metabolic panel showing a sodium of 117, potassium of 6.2, BUN of 90, creatinine of 1.6, and nonfasting glucose of 241. ALT of 133, alk phos of 168, and total protein of 4.5. The patient had an INR done on 05/15/2018, it was 1.26 down from 2.2 on 05/07/2018. The patient had a chest x-ray done earlier today, it was read as central lines and tubes as above, diffuse bilateral interstitial and alveolar type infiltrates with bilateral effusions. ASSESSMENT: The assessment for this patient is that of respiratory failure with intubation, aspiration pneumonia, unresectable small cell cancer of the lung, chronic obstructive pulmonary disease, atrial fibrillation, status post myocardial infarction, failure to thrive, sepsis, acute renal failure, anemia of chronic disease, hypernatremia, hyperkalemia, and thrombocytopenia. PLAN: The plan for this patient after conversation with Dr. Bullard and nurse in Intensive Care Unit and consultants. He is to continue present medical regimen as the patient remains a full code with this status to be addressed with consideration for a long-term facility care versus hospice as unfortunately the patient's condition has not significantly improved despite maximum effort. This is a complex patient with a comprehensive medically necessary and appropriate visit carried out in excess of 20 minutes with the patient's case discussed with medical staff as above. Erasmo Briggs MD
--- NOTE | 2018-05-19 20:53 | PN ---
DATE: 05/19/2018 PULMONARY CRITICAL CARE PROGRESS NOTE REFERRING PHYSICIAN: Dr. Bullard SUBJECTIVE: The patient is sedated, intubated, and could not arouse her. Not much ET tube secretion. No hemoptysis. No hematemesis. No hematuria. No diarrhea. OBJECTIVE: GENERAL: On ventilator and sedated. VITAL SIGNS: Afebrile, heart rate is 124, respiratory rate is 20, blood pressure is 95/52, and pulse ox is 100% on ventilator. HEENT: Moist mucous membrane. ET tube, no secretion. NECK: Supple. No JVD. LUNGS: Have scattered rhonchi and crackles. HEART: S1 and S2, irregular. ABDOMEN: Soft and nontender. No organomegaly. EXTREMITIES: No edema. NEUROLOGIC: Only opens eyes with painful stimuli. MEDICATIONS: He is on aspirin 81 mg daily, Betapace 40 mg twice a day, which is on hold, Calan 40 mg three times a day, Cardizem is on hold, IV fentanyl is on board, insulin coverage, Inderal 20 mg every 6 hours, meropenem 1 g IV every 12 hours, Precedex IV drip, Protonix 40 mg daily, Pulmicort inhaled twice a day, Solu-Medrol 20 mg twice a day, Tylenol p.r.n., and Xopenex inhaled every 6 hours p.r.n. LABORATORY DATA: Shows hemoglobin 8.2, hematocrit 29.9, WBC 21,000, and platelet is 72. Blood gases show pH of 7.34, pCO2 of 68, O2 of 109, this is on 100% oxygen on ventilator. Sodium 154, potassium 6.1, chloride 117, bicarbonate is 37, BUN 98, creatinine 1.7, glucose 196, and calcium 8.3. Microbiology, repeat blood culture from yesterday, so far there is no growth. Chest x-ray done this morning shows diffuse bilateral interstitial alveolar infiltrate, also has effusion. IMPRESSION AND PLAN: Multiorgan dysfunction; unresectable lung cancer; acute lung injury; respiratory failure, on ventilator; persistent atrial fibrillation with rapid ventricular response; history of myocardial infarction; renal insufficiency; and metastatic disease to lung and liver. Case discussed with nursing staff. May decrease fentanyl slowly. Continue antibiotics, bronchodilator, IV steroids, gastric prophylaxis, and deep vein thrombosis prophylaxis. Follow up labs in the morning. Overall poor prognosis. Critical care time spent more than 35 minutes. Thank you and we will follow with you. Aura Yi MD
[2018-05-20 00:09] LABS: CALCIUM 8.2 mg/dL (8.4-10.5)
[2018-05-20] MEDS ORDERED: Insulin Regular 1 UNITS/0.01 ML ML IVP STA (00:52)
[2018-05-20] MEDS: Levalbuterol 0.63 MG/3 ML Inhal Soln UD IH PRN (01:05)
[2018-05-20] MEDS: Dextrose 50% SYRINGE Inj (50 ml) IV PRN ×2 (01:32→06:52)
[2018-05-20] MEDS: NOREPINEPHRINE BIT/0.9 % NACL 4 MG/250 ML BAG IV PRN ×2 (06:47→10:52)
[2018-05-20] MEDS ORDERED: Dextrose 50% SYRINGE Inj (50 ml) ONE (06:53)
[2018-05-20] MEDS: Insulin Lispro (HUMAlog) HIGH Coverage SC SCH ×2 (06:55)
[2018-05-20 07:05] LABS: BASO # 0.06 K/mm3 (0.0-2.0); BASO % 0.2 % (0.0-3.0); HEMOGLOBIN 9.1 g/dL (14.0-18.0); LYMPH # 1.7 (1.2-3.4); LYMPH % 6.5 % (22.0-35.0); MEAN CELL VOLUME 103.8 fl (80.0-105.0); MEAN CORPUSCULAR HGB CONC 27.9 g/dl (31.0-37.0); MONO % 3.8 % (1.0-6.0); PLATELET COUNT 73 10^3/uL (120.0-450.0); RBC 3.14 10^6/uL (3.5-6.1); RED CELL DISTRIBUTION WIDTH 21.7 % (11.5-14.5)
[2018-05-20 07:33] LABS: ALBUMIN 2.3 g/dL (3.0-4.8)
[2018-05-20] MEDS: Budesonide 0.5 mg/2 ml Inhal Susp UD IH SCH (07:45)
[2018-05-20] MEDS: Levalbuterol 0.63 MG/3 ML Inhal Soln UD IH SCH ×2 (07:45→13:05)
[2018-05-20] MEDS ORDERED: Vasopressin 20 UNITS in Dextrose 5% In Water 100 ML IV SCH (08:00)
[2018-05-20] MEDS ORDERED: Sodium Chloride 0.9% 2,000 ML IV STA (08:14)
[2018-05-20] MEDS ORDERED: Dextrose 50% SYRINGE Inj (50 ml) IVP ONE (08:58)
[2018-05-20] MEDS ORDERED: Insulin Regular 1 UNITS/0.01 ML ML IV ONE (08:59)
[2018-05-20] MEDS ORDERED: Albuterol-Ipratrop 3 mg / 0.5 (3 ml) UD IH ONE (09:00)
[2018-05-20] MEDS: Meropenem IV 1 gm in NS 1 GM/50 ML BAG IVPB SCH (10:00)
[2018-05-20] MEDS: MethylPREDNISolone 40 mg Vial IVP SCH (10:00)
[2018-05-20] MEDS ORDERED: Sodium Chloride 0.9% 1,000 ML IV STA (10:56)
--- NOTE | 2018-05-20 12:48 | RAD ---
Date of service: 05/20/2018 HISTORY: ventilator COMPARISON: No prior. FINDINGS: In situ ETT, tip of which lies well above inga at the level of the thoracic inlet.. In situ a NGT also remains in good position no change right IJ MediPort LUNGS: Diffuse bilateral interstitial and alveolar-type infiltrates and small bilateral effusions right greater than left. PLEURA: No significant pleural effusion identified, no pneumothorax apparent. CARDIOVASCULAR: Mild aortic atherosclerotic calcification present. Heart size unchanged. OSSEOUS STRUCTURES: No significant abnormalities. VISUALIZED UPPER ABDOMEN: Normal. OTHER FINDINGS: None. IMPRESSION: Support lines and tubes as above. Diffuse bilateral interstitial/alveolar-type infiltrates and small bilateral effusions right greater than left
--- NOTE | 2018-05-20 13:26 | RAD ---
Date of service: 05/20/2018 HISTORY: Confirm ETT placement COMPARISON: Comparison chest 05/20/2018 at 06:06 hr FINDINGS: In situ ETT approximately 5 cm above inga. NGT is present, the distal aspect of which coiled upon itself with tip in the region of the fundus the stomach. No change right IJ MediPort tip in the SVC LUNGS: Diffuse bilateral infiltrates and bilateral effusions. Rule out pneumonia or possibly chronic compensated pulmonary edema/CHF PLEURA: As above. No pneumothorax apparent. CARDIOVASCULAR: No aortic atherosclerotic calcification present. Heart unchanged in size and appearance. . OSSEOUS STRUCTURES: No significant abnormalities. VISUALIZED UPPER ABDOMEN: Normal. OTHER FINDINGS: None. IMPRESSION: Support lines and tubes as above. Diffuse bilateral infiltrates and bilateral effusions. Rule out pneumonia or possibly chronic compensated pulmonary edema/CHF
--- NOTE | 2018-05-20 14:12 | CP.PCM.PRO ---
Pronouncement of Note - Clinical Findings Physical Exam: No Response Verbal/Painful Stimuli, Absent Peripheral Puls es{Carotid & Femoral}, Absent Heart & Breath Sounds, No Pupillary Light Reflex, No Corneal Reflex, Absence of Vital Signs - Pronouncement Time Time of Pronouncement of : 14:00 Additional Comments: Patient was hypotension today and started on levophed and vasopressin and given 3 L of NS to elevate blood pressure. Patient was also given stress dose steroids. However, patient continued to become bradycardic and hypotension and went into PEA arrest. Patient was subsequently given atropine and chest compressions were started. However, patient was not able to be revived with compression and patient was pronounced at 14:00 - Notifications Pronouncement Notifications: Family Notified Gun Tester Notified: No - Autopsy Autopsy Requested: No - N.Cheryl Certificate N.CherylEDRS Number: [id number]
--- NOTE | 2018-05-20 14:23 | PCM.RRT ---
MARKET DIRECTOR Nurse Assessment - Situation Date: 05/05/18 Time MARKET DIRECTOR was called: 13:50 MARKET DIRECTOR Responder Arrival Time: 13:51 MARKET DIRECTOR Location:: [address] [place] [address] Room Number: 361-2 MARKET DIRECTOR Reason for Call: Tachycardia, Respiratory Distress, O2 Saturation below 90% MARKET DIRECTOR Called By: RN - IV IV Inserted during MARKET DIRECTOR?: No - Respiratory Oxygen Delivery Method: Face Mask @% Oxygen Flow Rate: 10 Received Nebulizer Treatments:: No Was the Patient Ventilated with Bag/Mask 100% O2?: Yes Secretions Suctioned?: No Was the Patient Intubated?: No Was the Patient Placed on a Ventilator?: No - Medication Medications Administered During MARKET DIRECTOR: N/A - Diagnostic Test Ordered EKG: No Chest X-Ray: No CT Scan: No CPR started during MARKET DIRECTOR?: No - Vital Signs Vital Sign: Rapid Response Vital Sign Blood Pressure 153/78 Pulse Rate 100 Respiratory Rate 44 Temperature 98.1 F Oxygen Saturation 56 - Finger Stick Blood Glucose Finger Stick Blood Glucose: 256 - Time MARKET DIRECTOR Ended Time MARKET DIRECTOR Ended: 15:11 - Recommendations Notifications: Attending Physician, Family or Designated Caregiver I.Reason for MARKET DIRECTOR - A) Acute Change in Patient: (Select all that apply): Acute change in heart rate less than 50 or greater than 120, Acute change in SBP below - Respiratory Oxygen Delivery Method: Face Mask @% Oxygen Flow Rate: 10 - Constitutional Additional Comments: Non-responsive - Head Head Exam: ATRAUMATIC - Respiratory Exam Additional comments: absent breath sounds b/l - Cardiovascular Exam Additional comments: No pulses palpated - Neurological Exam Additional exam: Non-responsive - Extremities Exam Additional comments: peripheral extremities cyanotic Plan - Assessment of Findings&Treatment Plan Jonna vasquez called at 1350 for absent pulse. Code team arrived immediately. Chest compressions started shortly thereafter. First dose of atropine given at 1351. First dose of epi given at 1353. Second dose of epi given 1358. Chest compressions continued until 1400. Pronouncement of at 1400. Dr. Aguilera, ICU attending, present for entire code. Guille Lyn DO IM Resident PGY-1
--- NOTE | 2018-05-20 14:30 | CP.CCUPN ---
<Haley Mckeon - Last Filed: 05/20/18 14:27> CCU Subjective - Physician Review Subjective (Free Text): Haley Mckeon, PGY-1, ICU Progress Note for Dr. Aguilera Patient seen and evaluated at bedside. Overnight, patient was started on levophed because blood pressure could not be read by cuff. 12-point ROS was unattainable because patient was intubated upon presentation this morning. CCU Objective - Vital Signs / Intake & Output Vital Signs (Last 4 hours): Vital Signs Temp Pulse BP Pulse Ox 05/20/18 11:44 99.9 F H 05/20/18 11:42 99.9 F H 91 H 90/54 L 98 05/20/18 10:34 100.2 F H 94 H 109/62 96 Intake and Output (Last 8hrs): Intake & Output 05/19/18 05/20/18 05/20/18 22:59 06:59 14:59 Intake Total 1690 1230 250 Output Total 420 100 Balance 1270 1130 250 Weight 170 lb Intake: IV 570 190 250 antibiotic 400 150 fentany 70 40 Tube Feeding 720 540 Other 400 500 Output: Urine 220 100 Urethral (Yang) 220 100 Stool 200 Other: # Bowel Movements 1 - Physical Exam Head: Positive for: Atraumatic, Normocephalic Pupils: Positive for: PERRL Extroacular Muscles: Positive for: EOMI Conjunctiva: Positive for: Normal Mouth: Positive for: Moist Mucous Membranes Neck: Positive for: Normal Range of Motion Respiratory/Chest: Positive for: Respiratory Distress, Wheezes (worsened today), Rales (worsened today), Other (currently on ventilator). Negative for: Accessory Muscle Use Cardiovascular: Positive for: Normal S1, S2, Irregular Rhythm. Negative for: Murmurs Abdomen: Negative for: Tenderness, Distention, Peritoneal Signs Back: Positive for: Normal Inspection Upper Extremity: Positive for: Normal Inspection. Negative for: Cyanosis, Edema Lower Extremity: Positive for: Normal Inspection. Negative for: Edema Neurological: Positive for: Other (intubated) Skin: Positive for: Warm, Dry, Normal Color, Other (R IJ central port noted, multiple bruises noted on bilateral upper extremities). Negative for: Rashes Psychiatric: Positive for: Alert, Oriented x 3, Normal Insight, Normal Concentration - Medications Active Medications: Active Medications Generic Name Dose Route Start Last Admin Trade Name Freq PRN Reason Stop Dose Admin Acetaminophen 650 mg 05/10/18 20:29 05/10/18 20:55 Tylenol 650 Mg Supp RC 650 mg Q6H PRN Administration Fever >100.4 F Acetaminophen 650 mg 05/14/18 09:13 05/14/18 09:29 Tylenol 650mg/20.3ml Solution Ud NG 650 mg Q6H PRN Administration FEVER > 100.4 Aspirin 81 mg 05/12/18 11:30 05/20/18 10:00 Aspirin Chewable PO 81 mg DAILY ZARI Administration Budesonide 0.5 mg 04/27/18 20:00 05/20/18 07:45 Pulmicort Respules IH 0.5 mg [id number] ZARI Administration Dextrose 0 ml 05/09/18 10:48 05/20/18 06:52 Dextrose 50% Inj IV 50 ml STAT PRN Administration Hypoglycemia Protocol Protocol Dextrose 0 ml 05/18/18 08:29 Dextrose 50% Inj IV STAT PRN Hypoglycemia Protocol Protocol Diltiazem HCl 120 mg 04/27/18 10:00 05/07/18 11:16 Cardizem Cd PO Not Given DAILY ZARI Hydrocortisone Sodium Succinate 50 mg 05/20/18 12:00 05/20/18 11:47 Solu-Cortef IVP 50 mg Q6 ZARI Administration Hydromorphone HCl 0.5 mg 05/13/18 00:26 05/18/18 06:32 Dilaudid IVP 0.5 mg Q4H PRN Administration Pain, severe (8-10) Dexmedetomidine HCl 400 mcg in 100 mls @ 3.357 mls/hr 05/09/18 10:31 05/17/18 22:54 Precedex 400mcg/100ml IV 0 mcg/kg/hr .Q24H PRN 0 mls/hr Sedation Titration Protocol 0.2 MCG/KG/HR Dextrose 1,000 mls @ 0 mls/hr 05/09/18 10:48 Dextrose 5% In Water 1000 Ml IV .Q0M PRN Hypoglycemia Protocol Protocol Per Protocol Fentanyl Citrate 1,000 mcg in 100 mls @ 2 mls/hr 05/14/18 16:24 05/19/18 16:29 Fentanyl Citrate/Sodium Chloride 1 Mg/100 Ml IV 70 mcg/hr .Q24H PRN 7 mls/hr TITRATE PER MD ORDER Administration Protocol 20 MCG/HR Dextrose 1,000 mls @ 0 mls/hr 05/18/18 08:29 Dextrose 5% In Water 1000 Ml IV .Q0M PRN Hypoglycemia Protocol Protocol Per Protocol Meropenem 1 gm in 50 mls @ 100 mls/hr 05/19/18 10:00 05/20/18 10:00 Merrem Iv 1 Gm Premix IVPB 100 mls/hr Q12 ZARI Administration Protocol NOREPINEPHRINE BIT/0.9 % NACL 4 mg in 250 mls @ 15 mls/hr 05/20/18 06:15 05/20/18 10:52 Levophed 4 Mg/ 250 Ml Ns Premixed IV 20 mcg/min .[id number] PRN 75 mls/hr TITRATE PER MD ORDER Administration Protocol 4 MCG/MIN Vasopressin 20 units/ Dextrose 101 mls @ 9.09 mls/hr 05/20/18 08:00 05/20/18 08:42 IV 9.09 mls/hr .[id number] ZARI Administration Protocol 0.03 U/MIN Insulin Human Lispro 0 units 05/17/18 18:00 05/20/18 06:55 Humalog High SC Not Given Q6 ZARI Protocol Levalbuterol HCl 0.63 mg 04/27/18 12:16 05/20/18 01:05 Xopenex IH 0.63 mg [id number] PRN Administration Shortness of Breath Levalbuterol HCl 0.63 mg 04/28/18 20:00 05/20/18 13:05 Xopenex IH 0.63 mg TIDRESP ZARI Administration Pantoprazole Sodium 40 mg 05/09/18 10:00 05/20/18 10:00 Protonix Inj IVP 40 mg DAILY ZARI Administration Propranolol HCl 20 mg 05/18/18 09:15 05/20/18 10:02 Inderal PO Not Given Q6H ZARI Sotalol HCl 40 mg 05/09/18 10:00 05/11/18 09:16 Betapace PO Not Given BID ZARI Verapamil HCl 40 mg 05/10/18 14:00 05/11/18 09:16 Calan Tab PO Not Given TID ZARI Verapamil HCl 2.5 mg 05/10/18 12:31 05/17/18 13:34 Verapamil Inj IVP 2.5 mg Q6 PRN Administration FOR HR GREATER THAN 130 - Patient Studies Lab Studies: Microbiology Studies 05/18/18 16:00 Blood Culture - Preliminary Blood-Venous NO GROWTH AFTER 24 HOURS 05/18/18 15:00 Blood Culture - Preliminary Blood-Venous NO GROWTH AFTER 24 HOURS Lab Studies 05/20/18 05/20/18 05/20/18 Range/Units 11:39 08:58 08:03 WBC (4.5-11.0) 10^3/uL RBC (3.5-6.1) 10^6/uL Hgb (14.0-18.0) g/dL Hct (42.0-52.0) % MCV (80.0-105.0) fl MCH (25.0-35.0) pg MCHC (31.0-37.0) g/dl RDW (11.5-14.5) % Plt Count (120.0-450.0) 10^3/uL Neut % (Auto) (50.0-68.0) % Lymph % (Auto) (22.0-35.0) % Dale % (Auto) (1.0-6.0) % Eos % (Auto) (1.5-5.0) % Baso % (Auto) (0.0-3.0) % Lymph # (Auto) (1.2-3.4) Dale # (Auto) (0.1-0.6) Eos # (Auto) (0.0-0.7) Baso # (Auto) (0.0-2.0) K/mm3 Absolute Neuts (auto) (1.4-6.5) Sodium (132-148) mmol/L Potassium (3.6-5.0) mmol/L Chloride (98-107) mmol/L Carbon Dioxide (21-33) mmol/L Anion Gap (10-20) BUN (7-21) mg/dL Creatinine (0.8-1.5) mg/dl Est GFR ( Amer) Est GFR (Non-Af Amer) POC Glucose (mg/dL) 114 H 76 < 20 L* (65-110) mg/dL Random Glucose (70-110) mg/dL Calcium (8.4-10.5) mg/dL Total Bilirubin (0.2-1.3) mg/dL AST (17-59) U/L ALT (7-56) U/L Alkaline Phosphatase (38-126) U/L Total Protein (5.8-8.3) g/dL Albumin (3.0-4.8) g/dL Globulin gm/dL Albumin/Globulin Ratio (1.1-1.8) 05/20/18 05/20/18 05/20/18 Range/Units 06:48 06:30 06:30 WBC 26.0 H* D (4.5-11.0) 10^3/uL RBC 3.14 L (3.5-6.1) 10^6/uL Hgb 9.1 L (14.0-18.0) g/dL Hct 32.6 L (42.0-52.0) % MCV 103.8 (80.0-105.0) fl MCH 29.0 (25.0-35.0) pg MCHC 27.9 L (31.0-37.0) g/dl RDW 21.7 H (11.5-14.5) % Plt Count 73 L (120.0-450.0) 10^3/uL Neut % (Auto) 89.5 H (50.0-68.0) % Lymph % (Auto) 6.5 L (22.0-35.0) % Dale % (Auto) 3.8 (1.0-6.0) % Eos % (Auto) 0.0 L (1.5-5.0) % Baso % (Auto) 0.2 (0.0-3.0) % Lymph # (Auto) 1.7 (1.2-3.4) Dale # (Auto) 1.0 H (0.1-0.6) Eos # (Auto) 0.0 (0.0-0.7) Baso # (Auto) 0.06 (0.0-2.0) K/mm3 Absolute Neuts (auto) 23.28 H (1.4-6.5) Sodium 154 H (132-148) mmol/L Potassium 7.6 H* D (3.6-5.0) mmol/L Chloride 116 H (98-107) mmol/L Carbon Dioxide 33 (21-33) mmol/L Anion Gap 12 (10-20) BUN 107 H (7-21) mg/dL Creatinine 1.8 H (0.8-1.5) mg/dl Est GFR ( Amer) 45 Est GFR (Non-Af Amer) 37 POC Glucose (mg/dL) 53 L (65-110) mg/dL Random Glucose 95 (70-110) mg/dL Calcium 8.0 L (8.4-10.5) mg/dL Total Bilirubin 1.8 H (0.2-1.3) mg/dL AST 3196 H (17-59) U/L ALT 2441 H (7-56) U/L Alkaline Phosphatase 190 H (38-126) U/L Total Protein 4.7 L (5.8-8.3) g/dL Albumin 2.3 L (3.0-4.8) g/dL Globulin 2.4 gm/dL Albumin/Globulin Ratio 1.0 L (1.1-1.8) 05/19/18 05/19/18 05/19/18 Range/Units 23:15 16:34 14:11 WBC (4.5-11.0) 10^3/uL RBC (3.5-6.1) 10^6/uL Hgb (14.0-18.0) g/dL Hct (42.0-52.0) % MCV (80.0-105.0) fl MCH (25.0-35.0) pg MCHC (31.0-37.0) g/dl RDW (11.5-14.5) % Plt Count (120.0-450.0) 10^3/uL Neut % (Auto) (50.0-68.0) % Lymph % (Auto) (22.0-35.0) % Dale % (Auto) (1.0-6.0) % Eos % (Auto) (1.5-5.0) % Baso % (Auto) (0.0-3.0) % Lymph # (Auto) (1.2-3.4) Dale # (Auto) (0.1-0.6) Eos # (Auto) (0.0-0.7) Baso # (Auto) (0.0-2.0) K/mm3 Absolute Neuts (auto) (1.4-6.5) Sodium 153 H 154 H (132-148) mmol/L Potassium 6.3 H* 6.1 H* (3.6-5.0) mmol/L Chloride 116 H 117 H (98-107) mmol/L Carbon Dioxide 35 H 37 H (21-33) mmol/L Anion Gap 8 L 6 L (10-20) BUN 103 H 98 H (7-21) mg/dL Creatinine 1.8 H 1.7 H (0.8-1.5) mg/dl Est GFR ( Amer) 45 48 Est GFR (Non-Af Amer) 37 39 POC Glucose (mg/dL) 222 H (65-110) mg/dL Random Glucose 133 H 196 H (70-110) mg/dL Calcium 8.2 L 8.3 L (8.4-10.5) mg/dL Total Bilirubin (0.2-1.3) mg/dL AST (17-59) U/L ALT (7-56) U/L Alkaline Phosphatase (38-126) U/L Total Protein (5.8-8.3) g/dL Albumin (3.0-4.8) g/dL Globulin gm/dL Albumin/Globulin Ratio (1.1-1.8) Laboratory Results - last 24 hr 05/19/18 05/19/18 05/19/18 14:11 16:34 23:15 WBC RBC Hgb Hct MCV MCH MCHC RDW Plt Count Neut % (Auto) Lymph % (Auto) Dale % (Auto) Eos % (Auto) Baso % (Auto) Lymph # (Auto) Dale # (Auto) Eos # (Auto) Baso # (Auto) Absolute Neuts (auto) Sodium 154 H 153 H Potassium 6.1 H* 6.3 H* Chloride 117 H 116 H Carbon Dioxide 37 H 35 H Anion Gap 6 L 8 L BUN 98 H 103 H Creatinine 1.7 H 1.8 H Est GFR ( Amer) 48 45 Est GFR (Non-Af Amer) 39 37 POC Glucose (mg/dL) 222 H Random Glucose 196 H 133 H Calcium 8.3 L 8.2 L Total Bilirubin AST ALT Alkaline Phosphatase Total Protein Albumin Globulin Albumin/Globulin Ratio 05/20/18 05/20/18 05/20/18 06:30 06:30 06:48 WBC 26.0 H* D RBC 3.14 L Hgb 9.1 L Hct 32.6 L MCV 103.8 MCH 29.0 MCHC 27.9 L RDW 21.7 H Plt Count 73 L Neut % (Auto) 89.5 H Lymph % (Auto) 6.5 L Dale % (Auto) 3.8 Eos % (Auto) 0.0 L Baso % (Auto) 0.2 Lymph # (Auto) 1.7 Dale # (Auto) 1.0 H Eos # (Auto) 0.0 Baso # (Auto) 0.06 Absolute Neuts (auto) 23.28 H Sodium 154 H Potassium 7.6 H* D Chloride 116 H Carbon Dioxide 33 Anion Gap 12 BUN 107 H Creatinine 1.8 H Est GFR ( Amer) 45 Est GFR (Non-Af Amer) 37 POC Glucose (mg/dL) 53 L Random Glucose 95 Calcium 8.0 L Total Bilirubin 1.8 H AST 3196 H ALT 2441 H Alkaline Phosphatase 190 H Total Protein 4.7 L Albumin 2.3 L Globulin 2.4 Albumin/Globulin Ratio 1.0 L 05/20/18 05/20/18 05/20/18 08:03 08:58 11:39 WBC RBC Hgb Hct MCV MCH MCHC RDW Plt Count Neut % (Auto) Lymph % (Auto) Dale % (Auto) Eos % (Auto) Baso % (Auto) Lymph # (Auto) Dale # (Auto) Eos # (Auto) Baso # (Auto) Absolute Neuts (auto) Sodium Potassium Chloride Carbon Dioxide Anion Gap BUN Creatinine Est GFR ( Amer) Est GFR (Non-Af Amer) POC Glucose (mg/dL) < 20 L* 76 114 H Random Glucose Calcium Total Bilirubin AST ALT Alkaline Phosphatase Total Protein Albumin Globulin Albumin/Globulin Ratio Radiology Impressions: Radiology Impressions Chest X-Ray 05/20/18 05:00 IMPRESSION: Support lines and tubes as above. Diffuse bilateral interstitial/alveolar-type infiltrates and small bilateral effusions right greater than left Chest X-Ray 05/20/18 08:17 IMPRESSION: Support lines and tubes as above. Diffuse bilateral infiltrates and bilateral effusions. Rule out pneumonia or possibly chronic compensated pulmonary edema/CHF Fingerstick Blood Sugar Results: 73 Review of Systems - Review of Systems Systems not reviewed;Unavailable: Intubated Critical Care Progress Note - Ventilator Checklist Head of Bed 30 Degrees: Yes PUD Prophalyxis: Yes DVT Prophylaxis: Yes - Vent Settings MODE:: PRVC TIDAL VOLUME:: 450 RESP RATE:: 20 FIO2:: 100 PEEP:: 12 - Nutrition Nutrition: Nutrition Category Date Time Status NPO Diet [DIET] Diets 05/06/18 Breakfast Ordered Assessment/Plan - Assessment and Plan (Free Text) Assessment: 77 year old male with past medical history of 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 Plan: Patient was found to be hypotensive today and was started on levophed overnight. Patient's levophed was increased to 20 mcg/min this morning, vasopressin 0.03 was added, 3 L of NS was administered, solucortef 50 mg was given this morning. In addition, all antibiotics were continued as per infectious disease. Patient continued to deteriorate, became bradycardic and hypotensive and went into PEA arrest. Family wished for patient to be full code. Code blue was called, atropine 1 mg was given to the patient, epinephrine 1 mgx2 while compressions was given for 10 minutes. Even with all measures, patient was unable to be resuscitated. Family and PCP were notified regarding patient's passing. Disposition: - Date & Time Date: 05/20/18 Time: 14:31 <Fausto Aguilera - Last Filed: 05/20/18 15:14> CCU Objective - Vital Signs / Intake & Output Vital Signs (Last 4 hours): Vital Signs Temp Pulse Resp BP Pulse Ox 05/20/18 14:04 99.3 F 05/20/18 14:03 99.3 F 05/20/18 14:02 99.3 F 05/20/18 14:01 99.3 F 05/20/18 14:00 99.3 F 11 L 05/20/18 13:59 99.3 F 12 05/20/18 13:58 99.3 F 81 62 L 05/20/18 13:57 99.5 F 85 72 L 05/20/18 13:56 99.5 F 108 H 66 L 05/20/18 13:55 99.5 F 96 H 71 L 05/20/18 13:54 99.5 F 92 H 72 L 05/20/18 13:53 99.5 F 55 L 73 L 05/20/18 13:52 99.5 F 83 73 L 05/20/18 13:50 99.5 F 67 05/20/18 13:49 99.5 F 35 L 05/20/18 13:48 99.5 F 39 L 05/20/18 13:43 99.5 F 50 L 05/20/18 13:42 99.5 F 50 L 05/20/18 13:40 99.5 F 49 L 05/20/18 13:39 99.5 F 49 L 05/20/18 13:38 99.5 F 50 L 05/20/18 13:37 99.5 F 50 L 05/20/18 13:36 99.5 F 54 L 05/20/18 13:34 99.5 F 50 L 05/20/18 13:33 99.5 F 48 L 05/20/18 13:32 99.5 F 50 L 05/20/18 12:43 99.5 F 90 102/64 100 05/20/18 12:27 99.7 F H 91 H 114/70 100 05/20/18 12:13 99.9 F H 91 H 110/65 100 05/20/18 12:00 99.9 F H 93 H 99 05/20/18 11:57 99.9 F H 92 H 110/61 100 05/20/18 11:44 99.9 F H 05/20/18 11:42 99.9 F H 91 H 90/54 L 98 Intake and Output (Last 8hrs): Intake & Output 05/20/18 05/20/18 05/20/18 06:59 14:59 22:59 Intake Total 1230 250 Output Total 100 Balance 1130 250 Weight 170 lb Intake: IV 190 250 antibiotic 150 fentany 40 Tube Feeding 540 Other 500 Output: Urine 100 Urethral (Yang) 100 Other: # Bowel Movements 1 - Medications Active Medications: Active Medications Generic Name Dose Route Start Last Admin Trade Name Freq PRN Reason Stop Dose Admin Acetaminophen 650 mg 05/10/18 20:29 05/10/18 20:55 Tylenol 650 Mg Supp RC 650 mg Q6H PRN Administration Fever >100.4 F Acetaminophen 650 mg 05/14/18 09:13 05/14/18 09:29 Tylenol 650mg/20.3ml Solution Ud NG 650 mg Q6H PRN Administration FEVER > 100.4 Aspirin 81 mg 05/12/18 11:30 05/20/18 10:00 Aspirin Chewable PO 81 mg DAILY ZARI Administration Budesonide 0.5 mg 04/27/18 20:00 05/20/18 07:45 Pulmicort Respules IH 0.5 mg [id number] ZARI Administration Dextrose 0 ml 05/09/18 10:48 05/20/18 06:52 Dextrose 50% Inj IV 50 ml STAT PRN Administration Hypoglycemia Protocol Protocol Dextrose 0 ml 05/18/18 08:29 Dextrose 50% Inj IV STAT PRN Hypoglycemia Protocol Protocol Diltiazem HCl 120 mg 04/27/18 10:00 05/07/18 11:16 Cardizem Cd PO Not Given DAILY ZARI Hydrocortisone Sodium Succinate 50 mg 05/20/18 12:00 05/20/18 11:47 Solu-Cortef IVP 50 mg Q6 ZARI Administration Hydromorphone HCl 0.5 mg 05/13/18 00:26 05/18/18 06:32 Dilaudid IVP 0.5 mg Q4H PRN Administration Pain, severe (8-10) Dexmedetomidine HCl 400 mcg in 100 mls @ 3.357 mls/hr 05/09/18 10:31 05/17/18 22:54 Precedex 400mcg/100ml IV 0 mcg/kg/hr .Q24H PRN 0 mls/hr Sedation Titration Protocol 0.2 MCG/KG/HR Dextrose 1,000 mls @ 0 mls/hr 05/09/18 10:48 Dextrose 5% In Water 1000 Ml IV .Q0M PRN Hypoglycemia Protocol Protocol Per Protocol Fentanyl Citrate 1,000 mcg in 100 mls @ 2 mls/hr 05/14/18 16:24 05/19/18 16:29 Fentanyl Citrate/Sodium Chloride 1 Mg/100 Ml IV 70 mcg/hr .Q24H PRN 7 mls/hr TITRATE PER MD ORDER Administration Protocol 20 MCG/HR Dextrose 1,000 mls @ 0 mls/hr 05/18/18 08:29 Dextrose 5% In Water 1000 Ml IV .Q0M PRN Hypoglycemia Protocol Protocol Per Protocol Meropenem 1 gm in 50 mls @ 100 mls/hr 05/19/18 10:00 05/20/18 10:00 Merrem Iv 1 Gm Premix IVPB 100 mls/hr Q12 ZARI Administration Protocol NOREPINEPHRINE BIT/0.9 % NACL 4 mg in 250 mls @ 15 mls/hr 05/20/18 06:15 05/20/18 10:52 Levophed 4 Mg/ 250 Ml Ns Premixed IV 20 mcg/min .[id number] PRN 75 mls/hr TITRATE PER MD ORDER Administration Protocol 4 MCG/MIN Vasopressin 20 units/ Dextrose 101 mls @ 9.09 mls/hr 05/20/18 08:00 05/20/18 08:42 IV 9.09 mls/hr .[id number] ZARI Administration Protocol 0.03 U/MIN Insulin Human Lispro 0 units 05/17/18 18:00 05/20/18 06:55 Humalog High SC Not Given Q6 ZARI Protocol Levalbuterol HCl 0.63 mg 04/27/18 12:16 05/20/18 01:05 Xopenex IH 0.63 mg [id number] PRN Administration Shortness of Breath Levalbuterol HCl 0.63 mg 04/28/18 20:00 05/20/18 13:05 Xopenex IH 0.63 mg TIDRESP ZARI Administration Pantoprazole Sodium 40 mg 05/09/18 10:00 05/20/18 10:00 Protonix Inj IVP 40 mg DAILY ZARI Administration Propranolol HCl 20 mg 05/18/18 09:15 05/20/18 10:02 Inderal PO Not Given Q6H ZARI Sotalol HCl 40 mg 05/09/18 10:00 05/11/18 09:16 Betapace PO Not Given BID ZARI Verapamil HCl 40 mg 05/10/18 14:00 05/11/18 09:16 Calan Tab PO Not Given TID ZARI Verapamil HCl 2.5 mg 05/10/18 12:31 05/17/18 13:34 Verapamil Inj IVP 2.5 mg Q6 PRN Administration FOR HR GREATER THAN 130 - Patient Studies Lab Studies: Microbiology Studies 05/18/18 16:00 Blood Culture - Preliminary Blood-Venous NO GROWTH AFTER 24 HOURS 05/18/18 15:00 Blood Culture - Preliminary Blood-Venous NO GROWTH AFTER 24 HOURS Lab Studies 05/20/18 05/20/18 05/20/18 Range/Units 11:39 08:58 08:03 WBC (4.5-11.0) 10^3/uL RBC (3.5-6.1) 10^6/uL Hgb (14.0-18.0) g/dL Hct (42.0-52.0) % MCV (80.0-105.0) fl MCH (25.0-35.0) pg MCHC (31.0-37.0) g/dl RDW (11.5-14.5) % Plt Count (120.0-450.0) 10^3/uL Neut % (Auto) (50.0-68.0) % Lymph % (Auto) (22.0-35.0) % Dale % (Auto) (1.0-6.0) % Eos % (Auto) (1.5-5.0) % Baso % (Auto) (0.0-3.0) % Lymph # (Auto) (1.2-3.4) Dale # (Auto) (0.1-0.6) Eos # (Auto) (0.0-0.7) Baso # (Auto) (0.0-2.0) K/mm3 Absolute Neuts (auto) (1.4-6.5) Sodium (132-148) mmol/L Potassium (3.6-5.0) mmol/L Chloride (98-107) mmol/L Carbon Dioxide (21-33) mmol/L Anion Gap (10-20) BUN (7-21) mg/dL Creatinine (0.8-1.5) mg/dl Est GFR ( Amer) Est GFR (Non-Af Amer) POC Glucose (mg/dL) 114 H 76 < 20 L* (65-110) mg/dL Random Glucose (70-110) mg/dL Calcium (8.4-10.5) mg/dL Total Bilirubin (0.2-1.3) mg/dL AST (17-59) U/L ALT (7-56) U/L Alkaline Phosphatase (38-126) U/L Total Protein (5.8-8.3) g/dL Albumin (3.0-4.8) g/dL Globulin gm/dL Albumin/Globulin Ratio (1.1-1.8) 05/20/18 05/20/18 05/20/18 Range/Units 06:48 06:30 06:30 WBC 26.0 H* D (4.5-11.0) 10^3/uL RBC 3.14 L (3.5-6.1) 10^6/uL Hgb 9.1 L (14.0-18.0) g/dL Hct 32.6 L (42.0-52.0) % MCV 103.8 (80.0-105.0) fl MCH 29.0 (25.0-35.0) pg MCHC 27.9 L (31.0-37.0) g/dl RDW 21.7 H (11.5-14.5) % Plt Count 73 L (120.0-450.0) 10^3/uL Neut % (Auto) 89.5 H (50.0-68.0) % Lymph % (Auto) 6.5 L (22.0-35.0) % Dale % (Auto) 3.8 (1.0-6.0) % Eos % (Auto) 0.0 L (1.5-5.0) % Baso % (Auto) 0.2 (0.0-3.0) % Lymph # (Auto) 1.7 (1.2-3.4) Dale # (Auto) 1.0 H (0.1-0.6) Eos # (Auto) 0.0 (0.0-0.7) Baso # (Auto) 0.06 (0.0-2.0) K/mm3 Absolute Neuts (auto) 23.28 H (1.4-6.5) Sodium 154 H (132-148) mmol/L Potassium 7.6 H* D (3.6-5.0) mmol/L Chloride 116 H (98-107) mmol/L Carbon Dioxide 33 (21-33) mmol/L Anion Gap 12 (10-20) BUN 107 H (7-21) mg/dL Creatinine 1.8 H (0.8-1.5) mg/dl Est GFR ( Amer) 45 Est GFR (Non-Af Amer) 37 POC Glucose (mg/dL) 53 L (65-110) mg/dL Random Glucose 95 (70-110) mg/dL Calcium 8.0 L (8.4-10.5) mg/dL Total Bilirubin 1.8 H (0.2-1.3) mg/dL AST 3196 H (17-59) U/L ALT 2441 H (7-56) U/L Alkaline Phosphatase 190 H (38-126) U/L Total Protein 4.7 L (5.8-8.3) g/dL Albumin 2.3 L (3.0-4.8) g/dL Globulin 2.4 gm/dL Albumin/Globulin Ratio 1.0 L (1.1-1.8) 05/19/18 05/19/18 Range/Units 23:15 16:34 WBC (4.5-11.0) 10^3/uL RBC (3.5-6.1) 10^6/uL Hgb (14.0-18.0) g/dL Hct (42.0-52.0) % MCV (80.0-105.0) fl MCH (25.0-35.0) pg MCHC (31.0-37.0) g/dl RDW (11.5-14.5) % Plt Count (120.0-450.0) 10^3/uL Neut % (Auto) (50.0-68.0) % Lymph % (Auto) (22.0-35.0) % Dale % (Auto) (1.0-6.0) % Eos % (Auto) (1.5-5.0) % Baso % (Auto) (0.0-3.0) % Lymph # (Auto) (1.2-3.4) Dale # (Auto) (0.1-0.6) Eos # (Auto) (0.0-0.7) Baso # (Auto) (0.0-2.0) K/mm3 Absolute Neuts (auto) (1.4-6.5) Sodium 153 H (132-148) mmol/L Potassium 6.3 H* (3.6-5.0) mmol/L Chloride 116 H (98-107) mmol/L Carbon Dioxide 35 H (21-33) mmol/L Anion Gap 8 L (10-20) BUN 103 H (7-21) mg/dL Creatinine 1.8 H (0.8-1.5) mg/dl Est GFR ( Amer) 45 Est GFR (Non-Af Amer) 37 POC Glucose (mg/dL) 222 H (65-110) mg/dL Random Glucose 133 H (70-110) mg/dL Calcium 8.2 L (8.4-10.5) mg/dL Total Bilirubin (0.2-1.3) mg/dL AST (17-59) U/L ALT (7-56) U/L Alkaline Phosphatase (38-126) U/L Total Protein (5.8-8.3) g/dL Albumin (3.0-4.8) g/dL Globulin gm/dL Albumin/Globulin Ratio (1.1-1.8) Laboratory Results - last 24 hr 05/19/18 05/19/18 05/20/18 16:34 23:15 06:30 WBC 26.0 H* D RBC 3.14 L Hgb 9.1 L Hct 32.6 L MCV 103.8 MCH 29.0 MCHC 27.9 L RDW 21.7 H Plt Count 73 L Neut % (Auto) 89.5 H Lymph % (Auto) 6.5 L Dale % (Auto) 3.8 Eos % (Auto) 0.0 L Baso % (Auto) 0.2 Lymph # (Auto) 1.7 Dale # (Auto) 1.0 H Eos # (Auto) 0.0 Baso # (Auto) 0.06 Absolute Neuts (auto) 23.28 H Sodium 153 H Potassium 6.3 H* Chloride 116 H Carbon Dioxide 35 H Anion Gap 8 L BUN 103 H Creatinine 1.8 H Est GFR ( Amer) 45 Est GFR (Non-Af Amer) 37 POC Glucose (mg/dL) 222 H Random Glucose 133 H Calcium 8.2 L Total Bilirubin AST ALT Alkaline Phosphatase Total Protein Albumin Globulin Albumin/Globulin Ratio 05/20/18 05/20/18 05/20/18 06:30 06:48 08:03 WBC RBC Hgb Hct MCV MCH MCHC RDW Plt Count Neut % (Auto) Lymph % (Auto) Dale % (Auto) Eos % (Auto) Baso % (Auto) Lymph # (Auto) Dale # (Auto) Eos # (Auto) Baso # (Auto) Absolute Neuts (auto) Sodium 154 H Potassium 7.6 H* D Chloride 116 H Carbon Dioxide 33 Anion Gap 12 BUN 107 H Creatinine 1.8 H Est GFR ( Amer) 45 Est GFR (Non-Af Amer) 37 POC Glucose (mg/dL) 53 L < 20 L* Random Glucose 95 Calcium 8.0 L Total Bilirubin 1.8 H AST 3196 H ALT 2441 H Alkaline Phosphatase 190 H Total Protein 4.7 L Albumin 2.3 L Globulin 2.4 Albumin/Globulin Ratio 1.0 L 05/20/18 05/20/18 08:58 11:39 WBC RBC Hgb Hct MCV MCH MCHC RDW Plt Count Neut % (Auto) Lymph % (Auto) Dale % (Auto) Eos % (Auto) Baso % (Auto) Lymph # (Auto) Dale # (Auto) Eos # (Auto) Baso # (Auto) Absolute Neuts (auto) Sodium Potassium Chloride Carbon Dioxide Anion Gap BUN Creatinine Est GFR ( Amer) Est GFR (Non-Af Amer) POC Glucose (mg/dL) 76 114 H Random Glucose Calcium Total Bilirubin AST ALT Alkaline Phosphatase Total Protein Albumin Globulin Albumin/Globulin Ratio Radiology Impressions: Radiology Impressions Chest X-Ray 05/20/18 05:00 IMPRESSION: Support lines and tubes as above. Diffuse bilateral interstitial/alveolar-type infiltrates and small bilateral effusions right greater than left Chest X-Ray 05/20/18 08:17 IMPRESSION: Support lines and tubes as above. Diffuse bilateral infiltrates and bilateral effusions. Rule out pneumonia or possibly chronic compensated pulmonary edema/CHF Critical Care Progress Note - Nutrition Nutrition: Nutrition Category Date Time Status NPO Diet [DIET] Diets 05/06/18 Breakfast Ordered Assessment/Plan - Assessment and Plan (Free Text) Plan: Patient seen and examined on rounds this morning, with resident, agree with note with following additions/exceptions: Patient is 77yo male with PMHx of COPD, smoking, Small Cell Lung Ca with mets, admitted for hypoxic resp failure, difficult to wean, septic shock. This morning became hypotensive, given 3L NS Bolus, started on dual vasopressors Levophed, Vasopressin, stress dose steroids given. patient then had developed bradycardia, given atropine 0.5mg IV x 1, subsequently had asystole, CPR started. ACLS protocol followed with CPR done, pulse checked every 2 minutes, Epi given every 3-5 minutes. Bicarb x 1 given. Patient pronounced at 1400. Family notified
[2018-05-20 14:55] VITALS: BP 102/64; PULSE 81; RESP 11; TEMP 99.3; O2SAT 62
--- NOTE | 2018-05-20 17:12 | PN ---
DATE: 05/20/2018 This is [facility]'s [facility] visit in the Intensive Care Unit. FOR: Dr. Bullard. 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 The patient's electrolytes were significantly abnormal with the patient's hypertension, also an issue earlier today, which has since been corrected. We await family's input regarding DNR/DNI status with hospice recommended. The decision is still pending. PHYSICAL EXAMINATION: VITAL SIGNS: Temperature 100.2, pulse 95, respirations as per vent settings, blood pressure 119/73. HEENT: Does not open eyes to commands, intubated. NECK: No nodes. HEART: Tachy rate. Regular rhythm. Occasional ectopic beats. LUNGS: Scattered rhonchi. ABDOMEN: Soft. EXTREMITIES: +1 edema of the hands, feet with ecchymotic change in the upper extremities. NEUROLOGIC: Sedated with ventilator support but no spontaneous movement or response to commands. SKIN: Warm and dry except as above. LABORATORY DATA: The patient's labs were done. White blood cell count 26, hemoglobin 9.1, hematocrit 32.6, platelet count of 73,000. Metabolic panel showing a potassium of 7.6, being corrected; sodium 154, chloride of 116, BUN of 107, creatinine of 1.8 with a blood sugar of 53, calcium 8, total bilirubin 1.8, AST of 3196, ALT of 2441. The patient did have a chest x-ray done earlier today, the reading is pending. 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 PLAN: To correct abnormalities after licensed tax consultant's recommendations with the patient's prognosis poor with family aware with further changes as to his resuscitation status as per family members. The patient continues to be full code at this time with DNR/DNI strongly recommended with possible hospice. We will manage clinically and with laboratories. Erasmo Briggs MD [facility] # [id number]
--- NOTE | 2018-05-20 17:17 | PN ---
DATE: 05/20/2018 SUBJECTIVE: The patient is seen earlier this morning in [facility], bed 5 who is in critical condition, remains intubated, on a ventilator. Overall doing poorly. PHYSICAL EXAMINATION: VITAL SIGNS: Temperature is 99; T-max 100.2 and 101.5; and blood pressure is 90/50; respiratory rate on the vent. HEENT: His ET tube is in place. NECK: Supple. LUNGS: Decreased breath sounds. HEART: Normal S1 and S2. ABDOMEN: Soft and nontender. LABORATORY DATA: Reveals a white count of 26,000, hemoglobin of 9, platelets of 73; and a chemistry reveals a BUN of 107 and creatinine of 1.8. Urinalysis is noted and serology is noted. Microbiology reveals blood cultures are negative. REVIEW OF ORDERS: Reveals the patient to be on meropenem and vancomycin intermittently. ASSESSMENT AND PLAN: This is a 77-year-old male known to hi with hypoxic respiratory failure, ventilator-dependent respiratory failure, severe sepsis with hospital-acquired pneumonia on top of end-stage lung cancer, which is stage IV lung cancer and with small cell stage IV lung cancer with status post radiation and chemotherapy, and the patient in a setting of end-stage chronic obstructive pulmonary disease, on meropenem and vancomycin. He has completed Tamiflu treatment and overall prognosis is quite poor. Should consider a hospice setting, terminal extubation for this patient and end stage. Chon Guerra MD
--- NOTE | 2018-05-20 20:15 | PN ---
DATE: 05/20/2018 PULMONARY CRITICAL CARE PROGRESS NOTE REFERRING PHYSICIAN: Dr. Bullard. SUBJECTIVE: He is intubated, unresponsive, hemodynamically unstable, bradycardia with hypotension. No hemoptysis, hematemesis, hematuria, or diarrhea. OBJECTIVE/PHYSICAL EXAMINATION: GENERAL: On ventilator. VITAL SIGNS: Temperature is 99, heart rate 91, respiratory rate is 20, blood pressure 90/54, pulse ox 98% on ventilator, 100% oxygen. HEENT: Moist mucous membrane. ET tube, no secretion. NECK: Supple. No JVD. LUNGS: Have scattered rhonchi and crackles. HEART: S1 and S2. ABDOMEN: Nondistended, soft. EXTREMITIES: There is no edema. NEUROLOGIC: Unresponsive. MEDICATIONS: He is on aspirin 81 mg daily, sotalol 40 mg twice a day, verapamil 40 mg three times a day which is on hold, Cardizem is on hold, received D50 this morning, Dilaudid 0.5 mg every 4 hours p.r.n, fentanyl is discontinued, Inderal is 20 mg every 6 hours which is on hold, also on Levophed, meropenem 1 g IV every 12 hours, Precedex IV which is on hold, Protonix 40 mg daily, Pulmicort inhaled twice a day, Solu-Cortef 50 mg every 6 hours, Tylenol p.r.n. basis, vasopressin been added this morning, Xopenex is every 6 hours. LABORATORY DATA: Shows hemoglobin 9.1, hematocrit is 32.6, WBC 26,000, platelet is 73. Blood sugar repeated over noon time show 114,sodium 154, potassium 7.6, chloride 116, bicarbonate is 33, BUN is 107, creatinine 1.8, calcium is 8. AST 3196, ALT 2441, alkaline phosphatase is 190, albumin is 2.3. Chest x-ray done this morning shows diffuse bilateral infiltrate and bilateral effusion. IMPRESSION AND PLAN: Multiorgan dysfunction, has unresectable lung cancer, renal failure, acute lung injury, atrial fibrillation with uncontrolled ventricular response status post MRI. Case discussed with intensive care unit resident. I just spoke to nursing staff. Overall great prognosis. Hospice appropriate. Apparently family have been called to come and see him because he is hemodynamically unstable. We need to give Kayexalate with insulin and glucose. He may need all of these if family continue want to push for further aggressive care though he has a grave prognosis with present hemodynamics. Critical care time spent more than 35 minutes. Thank you and we will follow with you. Aura Yi MD
== END 2018-05-20 14:00 | DRG 870 ==
LOC: ED 17:56 → ERH 20:15 → 3RNO 22:28 → CCU 05-05 15:16
PROVIDERS: ADMIT Family Medicine; ATTEND Family Medicine
PROC: 0BH18EZ Insertion of Endotracheal Airway into Trachea, Via Natural or Artificial Opening Endoscopic (ICD-10-PCS; principal; 2018-05-05)
PROC: 5A1955Z Respiratory Ventilation, Greater than 96 Consecutive Hours (ICD-10-PCS; 2018-05-05)
DX: A41.9 Sepsis, unspecified organism (principal); E43 Unspecified severe protein-calorie malnutrition; I21.4 Non-ST elevation (NSTEMI) myocardial infarction; G93.41 Metabolic encephalopathy; J69.0 Pneumonitis due to inhalation of food and vomit; J96.01 Acute respiratory failure with hypoxia; R65.21 Severe sepsis with septic shock; C34.90 Malignant neoplasm of unspecified part of unspecified bronchus or lung; B37.0 Candidal stomatitis; C78.00 Secondary malignant neoplasm of unspecified lung; C78.7 Secondary malignant neoplasm of liver and intrahepatic bile duct; C79.51 Secondary malignant neoplasm of bone; C7A.8 Other malignant neuroendocrine tumors; E87.0 Hyperosmolality and hypernatremia; E87.3 Alkalosis; I48.1 Persistent atrial fibrillation; I47.1 Supraventricular tachycardia; I42.9 Cardiomyopathy, unspecified; I48.92 Unspecified atrial flutter; J44.1 Chronic obstructive pulmonary disease with (acute) exacerbation; N17.9 Acute kidney failure, unspecified; R64 Cachexia; Z99.11 Dependence on respirator [ventilator] status; D63.8 Anemia in other chronic diseases classified elsewhere; D69.6 Thrombocytopenia, unspecified; D70.9 Neutropenia, unspecified; E86.0 Dehydration; E87.5 Hyperkalemia; I48.2 Chronic atrial fibrillation; I48.0 Paroxysmal atrial fibrillation; I46.9 Cardiac arrest, cause unspecified; E87.6 Hypokalemia; I10 Essential (primary) hypertension; I25.10 Atherosclerotic heart disease of native coronary artery without angina pectoris; I25.2 Old myocardial infarction; K21.9 Gastro-esophageal reflux disease without esophagitis; K29.70 Gastritis, unspecified, without bleeding; R62.7 Adult failure to thrive; Y95 Nosocomial condition; Z51.5 Encounter for palliative care; Z79.01 Long term (current) use of anticoagulants; Z87.01 Personal history of pneumonia (recurrent); Z87.11 Personal history of peptic ulcer disease; Z87.891 Personal history of nicotine dependence; Z92.21 Personal history of antineoplastic chemotherapy; Z92.3 Personal history of irradiation